=== PATIENT | male | born 1960 | race Caucasian/White ===

== ENCOUNTER 2018-12-10 18:40 | Inpatient (IN) | payer MEDICARE ==
[~2018-12-10] VITALS: Ht 175.3 cm; Wt 75.3 kg
[~2018-12-10 18:40] MED LIST: CHOL4POW3 PO; HYDR-2769 PO; LISI-334 PO; OXYC1TAB22 PO; WARF-78 PO
[2018-12-10] MEDS ORDERED: fentaNYL PF VIAL 100 MCG/2 ML VIAL IV ONE (19:15)
[2018-12-10] MEDS ORDERED: IOHEXOL 300 MG/ML 100ML VIAL. IV ONE (19:15)
[2018-12-10 19:16] LABS: BASO % 1 % (0-3); EOS # 0.4 x10^3/uL (0.0-0.7); EOS % 8 % (0-3); HEMATOCRIT 31.3 % (39.0-53.0); HEMOGLOBIN 10.6 g/dL (13.0-17.5); LYMPH # 1.8 x10^3/uL (1.0-4.8); LYMPH % 37 % (24-48); MEAN CORPUSCULAR HEMOGLOBIN 26 pg (25-35); MEAN CORPUSCULAR HGB CONC 34 g/dL (31-37); MEAN CORPUSCULAR VOLUME 77 fL (79-100); MONO # 0.5 x10^3/uL (0.0-1.1); MONO % 11 % (0-9); NEUT # 2.1 x10^3/uL (1.8-7.7); NEUT % 43 % (31-73); PLATELET COUNT 270 x10^3/uL (140-400); RED BLOOD COUNT 4.04 x10^6/uL (4.30-5.70); RED CELL DISTRIBUTION WIDTH 18.9 % (11.5-14.5); WHITE BLOOD COUNT 4.9 x10^3/uL (4.0-11.0)
--- NOTE | 2018-12-10 19:30 | RAD ---
Indication: Trauma TECHNIQUE: Single AP view of the chest COMPARISON: None FINDINGS: Median sternotomy. Heart is normal in size. Lungs are clear. No pneumothorax or pleural effusion. Visualized bony thorax is within normal limits. IMPRESSION: No acute pulmonary process. Indication:Trauma. TECHNIQUE: 3 views of the left knee COMPARISON:None FINDINGS/impression: No acute fracture or dislocation. No joint effusion. Electronically signed by: Rodrigo Carrillo DO (12/10/2018 7:27 PM) [facility]
--- NOTE | 2018-12-10 19:30 | RAD ---
Indication: Trauma TECHNIQUE: Single AP view of the chest COMPARISON: None FINDINGS: Median sternotomy. Heart is normal in size. Lungs are clear. No pneumothorax or pleural effusion. Visualized bony thorax is within normal limits. IMPRESSION: No acute pulmonary process. Indication:Trauma. TECHNIQUE: 3 views of the left knee COMPARISON:None FINDINGS/impression: No acute fracture or dislocation. No joint effusion. Electronically signed by: Rodrigo Carrillo DO (12/10/2018 7:27 PM) [facility]
[2018-12-10 19:33] LABS: PROTHROMBIN TIME PATIENT 34.3 SEC (11.7-14.0)
[2018-12-10 19:33] LABS: BILIRUBIN,URINE NEGATIVE (NEG); CLARITY,URINE CLEAR; COLOR,URINE YELLOW; NITRITE,URINE NEGATIVE (NEG); PH,URINE 5.5; PROTEIN,URINE NEGATIVE (NEG-TRACE); UROBILINOGEN,URINE 0.2 mg/dL (0.2 mg/dL)
[2018-12-10 19:34] LABS: ALBUMIN 3.5 g/dL (3.4-5.0); ALBUMIN/GLOBULIN RATIO 1.1 (1.0-1.7); CALCIUM 8.3 mg/dL (8.5-10.1); CREATININE 0.8 mg/dL (0.7-1.3); GFR 99.6; POTASSIUM 3.3 mmol/L (3.5-5.1); TOTAL BILIRUBIN 0.3 mg/dL (0.2-1.0); TOTAL PROTEIN 6.7 g/dL (6.4-8.2)
[2018-12-10 19:38] LABS: BACTERIA,URINE 0 /HPF (0-FEW); RBC,URINE 0 /HPF (0-2); SQUAMOUS EPITHELIAL CELL,UR OCC /LPF; WBC,URINE 0 /HPF (0-4)
[2018-12-10] MEDS ORDERED: IV NORMAL SALINE 1000ML BAG 1,000 ML IV ONE (19:45)
--- NOTE | 2018-12-10 20:01 | RAD ---
PQRS Compliance statement: One or more of the following individualized dose reduction techniques were utilized for this examination: 1. Automated exposure control. 2. Adjustment of the mA and/or kV according to patient size. 3. Use of iterative reconstruction technique. Indication:Trauma. TECHNIQUE: CT head without IV contrast COMPARISON:None FINDINGS: No pathologic extra-axial or intra-axial fluid collection. The ventricles and basal cisterns are within normal limits. No acute intracranial bleed. No large scalp hematoma. Orbits are within normal limits. No acute calvarial fractures. Mucous retention cyst or polyps are seen in the bilateral maxillary sinuses. Patchy opacification of the ethmoid air cells suggesting sinus disease. Bilateral mastoid air cells are clear. IMPRESSION: No acute intracranial bleed or calvarial fracture. Indication:Trauma. TECHNIQUE: CT of the cervical spine without IV contrast with multiplanar reformats. COMPARISON:None FINDINGS: Cervical spine is in normal anatomic alignment. Atlantoaxial joint interval is preserved. Loss of vertebral body height seen at T2 vertebral body with no retropulsion the spinal canal. No compression deformities in the cervical spine. Facet joints are in normal anatomic alignment. Multilevel advanced degenerative disc disease noted. Visualized noncontrast sections through the neck are within normal limits. Clear lung apices. IMPRESSION: 1. Mild loss of T2 vertebral body height suggests compression deformity or collapsed Schmorl's node, age indeterminate. Clinically correlate with focal tenderness. 2. No acute fractures in the cervical spine. 3. Advanced multilevel degenerative disc disease. Indication:Trauma. TECHNIQUE: CT chest, abdomen and pelvis with IV contrast with multiplanar reformats. COMPARISON: None FINDINGS: Heart is normal in size. No pericardial or pleural effusion. CABG changes noted. Clear lung bases. No enlarged axillary, mediastinal or hilar adenopathy. Mild diffuse atherosclerotic plaque in the thoracic aorta. No pneumothorax. Mild emphysema. No lung consolidation. No acute fractures. Mild abnormality seen of the superior endplate of the T2 vertebral body. Mild aneurysmal dilation of the ascending aorta measuring 4 cm. Liver, spleen, gallbladder, pancreas, adrenals and kidneys are within normal limits. No free pelvic fluid or ascites. No pneumoperitoneum. The prostate and seminal vesicles show no large mass. No bowel obstruction. Normal appendix. Urinary bladder is distended without radiopaque stone. No suspicious bony lesion. IMPRESSION: 1. Mild abnormality of the superior endplate of the T12 vertebral body likely collapsed Schmorl's node or old compression deformity. Clinically correlate with focal tenderness. 2. Mild aneurysmal dilation of the ascending aorta. Electronically signed by: Rodrigo Carrillo DO (12/10/2018 7:58 PM) [facility]
[2018-12-10] MEDS ORDERED: DIPHTH,PERTUSS(ACELL),TET TOX 0.5 ML DISP.SYRIN. VAX IM ONE (20:15)
--- NOTE | 2018-12-10 20:53 | HP ---
ADMIT DATE: 12/10/2018 CHIEF COMPLAINT: Fall. HISTORY OF PRESENT ILLNESS: The patient is a pleasant middle-aged male who fell. He is drunk. He drinks a lot of beer. He also has a sodium level of 119. He suffered a laceration to his scalp. I discussed the case with ER physician. We are going to admit the patient and consult Nephrology regarding his electrolytes. PAST MEDICAL HISTORY: Alcoholism, chronic anticoagulation, coronary artery disease, hypertension, hyperlipidemia, chronic pain, arthritis. ALLERGIES: None. FAMILY HISTORY: Coronary artery disease. SOCIAL HISTORY: He drinks. No smoking or drugs. MEDICATIONS: Reviewed, please refer to the MRAD. REVIEW OF SYSTEMS: Unable to obtain. The patient is too drunk. PHYSICAL EXAMINATION: GENERAL: No history of weight change, weakness or fevers. SKIN: No bruising, hair changes or rashes. HEENT: He has a C-collar on and has some lacerations and bruising to the face and scalp. HEART: No history of palpitations, chest pain or shortness of breath on exertion. LUNGS: Denies cough, hemoptysis, wheezing or shortness of breath. GASTROINTESTINAL: Denies changes in appetite, nausea, vomiting, diarrhea or constipation. GENITOURINARY: No history of frequency, urgency, hesitancy or nocturia. NEUROLOGIC: Denies history of numbness, tingling, tremor or weakness. PSYCHIATRIC: No history of panic, anxiety or depression. ENDOCRINE: No history of heat or cold intolerance, polyuria or polydipsia. EXTREMITIES: He has a lot of bruising on his arms consistent with his chronic anticoagulation with Coumadin. LABORATORY DATA: White count is 4.9, hemoglobin 10.6, platelets 270. Electrolytes: Sodium 119, potassium 3.3, chloride 84, bicarbonate 30, BUN 8, creatinine 0.8, glucose 85. Chest x-ray, no acute fractures or acute disease. CT of the abdomen, no acute issues. There is an old compression fracture noted at T2. Cervical spine CT, no acute bleeding or fractures. There is some mild abnormality of the superior endplate of T12, likely collapsed Schmorl's node or old compression deformity and mild aneurysmal dilatation of the ascending aorta. ASSESSMENT AND PLAN: Fall, alcohol abuse and hyponatremia in a middle-aged male who has chronic anticoagulation and coronary artery disease. The patient is being admitted. We will consult Nephrology, wound care, home meds. If he shows signs of withdrawal, we will do alcohol withdrawal protocol, DVT prophylaxis. Full code. PAT SANABRIA DO DR: KIARA/juanita JOB#: [id number] / [id number]
[2018-12-10] MEDS ORDERED: OXYC1TAB19 PO (21:43)
[2018-12-10] MEDS ORDERED: LORA1TAB PO (21:46)
[2018-12-10] MEDS: IV NORMAL SALINE 1000ML BAG 1,000 ML IV SCH (21:54)
[2018-12-10] MEDS: MORPHINE SULFATE 2 MG/ML VIAL. IV PRN (21:54)
[2018-12-10 22:05] LABS: CREATININE ISTAT 1.2 mg/dL (0.5-1.4); HEMOGLOBIN ISTAT 11.6 g/dL (14-18); ION CA ISTAT 1.01 mmol/L (1.13-1.32); POTASSIUM ISTAT 3.2 mmol/L (3.5-5.0)
--- NOTE | 2018-12-10 22:21 | PHYS DOC ---
Past Medical History Past Medical History: Hypertension Past Surgical History: Other Additional Past Surgical Histo: AORTIC VALVE Alcohol Use: Heavy Drug Use: None Adult General Chief Complaint Chief Complaint: MECHANICAL FALL HPI HPI Patient is a 58 year old male presented to the emergency room with mechanical fall down 5 steps he was intoxicated hit his head complains of neck pain some upper back pain chest pain he says he has pain all over he drank 9 beers today he drinks regularly. Remainder of history limited by patient's intoxication. There was loss of consciousness witnessedAccording to medic report. Patient does take Coumadin for a valve disorder Review of Systems Review of Systems Limited by intoxication Current Medications Current Medications Current Medications Medications (Trade) Dose Ordered Sig/Siddharth Start Time Stop Time Status Last Admin Dose Admin Fentanyl Citrate (Fentanyl 2ml Vial) 50 mcg 1X ONCE 12/10/18 19:15 12/10/18 19:16 DC 12/10/18 20:03 50 MCG Iohexol (Omnipaque 300 Mg/ml) 75 ml 1X ONCE 12/10/18 19:15 12/10/18 19:16 DC 12/10/18 19:43 75 ML Sodium Chloride 1,000 ml @ 1,000 mls/hr 1X ONCE 12/10/18 19:45 12/10/18 20:44 DC 12/10/18 19:45 1,000 MLS/HR Allergies Allergies Allergies Coded Allergies Type Severity Reaction Last Updated Verified No Known Drug Allergies 10/05/17 No Physical Exam Physical Exam Constitutional: Well developed, INTOXICATED, IN CCOCLAR HENT: Contusion to the forehead no suturable laceration noted Eyes: PERRLA, EOMI, conjunctiva normal, no discharge. [] Neck: There is midline tenderness at 3 C4 as well as paraspinous tenderness in that location really no focal thoracic spine tenderness noted on my evaluation no lumbar spine tenderness. Cardiovascular:Heart rate regular rhythm, no murmur [] Lungs & Thorax: Bilateral breath sounds clear to auscultation []chest wall abrasion noted on the right with a small ecchymosis as well no step-off Abdomen: Bowel sounds normal, soft, no tenderness, no masses, no pulsatile masses. [] Mild ecchymosis noted Back: No tenderness, no CVA tenderness. [] Extremities: ABRASION AND NONSUTRUABLE PUNCTATE LAC TO THE LEFT KNEE, NO FB SEEN. ROM INTACT. Neurologic: Alert and oriented X 3, normal motor function, normal sensory function, no focal deficits noted. []Intoxicated but otherwise neurologically intact Psychologic: Affect normal, judgement normal, mood normal. [] SKIN: SKIN TEAR NOTED B/L HANDS NO BONY TTP NOTED THERE Current Patient Data Vital Signs Vital Signs Date Time Temp Pulse Resp B/P (MAP) Pulse Ox O2 Delivery O2 Flow Rate FiO2 12/10/18 19:45 70 16 99 12/10/18 18:52 97.7 120/71 (87) Room Air 97.7 Lab Values Laboratory Tests Test 12/10/18 19:05 12/10/18 19:11 12/10/18 19:27 White Blood Count 4.9 x10^3/uL (4.0-11.0) Red Blood Count 4.04 x10^6/uL (4.30-5.70) L Hemoglobin 10.6 g/dL (13.0-17.5) L Hematocrit 31.3 % (39.0-53.0) L Mean Corpuscular Volume 77 fL (79-100) L Mean Corpuscular Hemoglobin 26 pg (25-35) Mean Corpuscular Hemoglobin Concent 34 g/dL (31-37) Red Cell Distribution Width 18.9 % (11.5-14.5) H Platelet Count 270 x10^3/uL (140-400) Neutrophils (%) (Auto) 43 % (31-73) Lymphocytes (%) (Auto) 37 % (24-48) Monocytes (%) (Auto) 11 % (0-9) H Eosinophils (%) (Auto) 8 % (0-3) H Basophils (%) (Auto) 1 % (0-3) Neutrophils # (Auto) 2.1 x10^3/uL (1.8-7.7) Lymphocytes # (Auto) 1.8 x10^3/uL (1.0-4.8) Monocytes # (Auto) 0.5 x10^3/uL (0.0-1.1) Eosinophils # (Auto) 0.4 x10^3/uL (0.0-0.7) Basophils # (Auto) 0.0 x10^3/uL (0.0-0.2) Prothrombin Time 34.3 SEC (11.7-14.0) H Prothrombin Time INR 3.4 (0.8-1.1) H Sodium Level 119 mmol/L (136-145) *L Potassium Level 3.3 mmol/L (3.5-5.1) L Chloride Level 84 mmol/L (98-107) L Carbon Dioxide Level 30 mmol/L (21-32) Anion Gap 5 (6-14) L 18 mmol/L (6-14) H Blood Urea Nitrogen 8 mg/dL (8-26) Creatinine 0.8 mg/dL (0.7-1.3) Estimated GFR (Cockcroft-Gault) 99.6 BUN/Creatinine Ratio 10 (6-20) Glucose Level 85 mg/dL (70-99) 86 mg/dL (70-99) Calcium Level 8.3 mg/dL (8.5-10.1) L Total Bilirubin 0.3 mg/dL (0.2-1.0) Aspartate Amino Transferase (AST) 27 U/L (15-37) Alanine Aminotransferase (ALT) 23 U/L (16-63) Alkaline Phosphatase 63 U/L (46-116) Troponin I Quantitative < 0.017 ng/mL (0.000-0.055) Total Protein 6.7 g/dL (6.4-8.2) Albumin 3.5 g/dL (3.4-5.0) Albumin/Globulin Ratio 1.1 (1.0-1.7) Ethyl Alcohol Level 231 mg/dL (0-10) H POC Hemoglobin 11.6 g/dL (14-18) L POC Hematocrit 34 % (37-52) L POC Sodium 117 mmol/L (135-145) L POC Potassium 3.2 mmol/L (3.5-5.0) L POC Chloride 79 mmol/L (98-110) L POC Total CO2 25 mmol/L (23-32) POC Blood Urea Nitrogen 7 mg/dL (8-26) L POC Creatinine 1.2 mg/dL (0.5-1.4) POC Ionized Calcium (Smiley) 1.01 mmol/L (1.13-1.32) L Urine Collection Type Unknown Urine Color Yellow Urine Clarity Clear Urine pH 5.5 Urine Specific Loyal <=1.005 Urine Protein Negative mg/dL (NEG-TRACE) Urine Glucose (UA) Negative mg/dL (NEG) Urine Ketones (Stick) Negative mg/dL (NEG) Urine Blood Negative (NEG) Urine Nitrite Negative (NEG) Urine Bilirubin Negative (NEG) Urine Urobilinogen Dipstick 0.2 mg/dL (0.2 mg/dL) Urine Leukocyte Esterase Negative (NEG) Urine RBC 0 /HPF (0-2) Urine WBC 0 /HPF (0-4) Urine Squamous Epithelial Cells Occ /LPF Urine Bacteria 0 /HPF (0-FEW) Laboratory Tests 12/10/18 19:05 Laboratory Tests 12/10/18 19:05 12/10/18 19:11 EKG EKG []EKG did show a normal sinus rhythm rate of 71 no acute ischemic changes noted interpreted by me the time of encounter Radiology/Procedures Radiology/Procedures FINDINGS: Median sternotomy. Heart is normal in size. Lungs are clear. No pneumothorax or pleural effusion. Visualized bony thorax is within normal limits. IMPRESSION: No acute pulmonary process. Indication:Trauma. TECHNIQUE: 3 views of the left knee COMPARISON:None FINDINGS/impression: No acute fracture or dislocation. No joint effusion. Electronically signed by: Rodrigo Carrillo DO (12/10/2018 7:27 PM) [facility] DICTATED and SIGNED BY: RODRIGO CARRILLO DO DATE: 12/10/181926[] Impressions: IMPRESSION: No acute intracranial bleed or calvarial fracture. Indication:Trauma. TECHNIQUE: CT of the cervical spine without IV contrast with multiplanar reformats. COMPARISON:None FINDINGS: Cervical spine is in normal anatomic alignment. Atlantoaxial joint interval is preserved. Loss of vertebral body height seen at T2 vertebral body with no retropulsion the spinal canal. No compression deformities in the cervical spine. Facet joints are in normal anatomic alignment. Multilevel advanced degenerative disc disease noted. Visualized noncontrast sections through the neck are within normal limits. Clear lung apices. IMPRESSION: 1. Mild loss of T2 vertebral body height suggests compression deformity or collapsed Schmorl's node, age indeterminate. Clinically correlate with focal tenderness. 2. No acute fractures in the cervical spine. 3. Advanced multilevel degenerative disc disease. Indication:Trauma. TECHNIQUE: CT chest, abdomen and pelvis with IV contrast with multiplanar reformats. COMPARISON: None FINDINGS: Heart is normal in size. No pericardial or pleural effusion. CABG changes noted. Clear lung bases. No enlarged axillary, mediastinal or hilar adenopathy. Mild diffuse atherosclerotic plaque in the thoracic aorta. No pneumothorax. Mild emphysema. No lung consolidation. No acute fractures. Mild abnormality seen of the superior endplate of the T2 vertebral body. Mild aneurysmal dilation of the ascending aorta measuring 4 cm. Liver, spleen, gallbladder, pancreas, adrenals and kidneys are within normal limits. No free pelvic fluid or ascites. No pneumoperitoneum. The prostate and seminal vesicles show no large mass. No bowel obstruction. Normal appendix. Urinary bladder is distended without radiopaque stone. No suspicious bony lesion. IMPRESSION: 1. Mild abnormality of the superior endplate of the T12 vertebral body likely collapsed Schmorl's node or old compression deformity. Clinically correlate with focal tenderness. 2. Mild aneurysmal dilation of the ascending aorta. Electronically signed by: Rodrigo Carrillo DO (12/10/2018 7:58 PM) [facility] DICTATED and SIGNED BY: RODRIGO CARRILLO DO DATE: 12/10/181957 Course & Med Decision Making Course & Med Decision Making Critical care time was 35 minutes exclusive of procedures.for management of severe hyponatremia In summary 58-year-old male alcoholic intoxication fell trauma alert activated in the emergency room due to being on Coumadin. Head CT negative Coumadin level was mildly supratherapeutic I did not reverse it due to the known valve disorder and the negative head CT at this time. C-spine was cleared clinically after the CT C-spine. Noted the T2 finding really no focal tenderness there that is age indeterminant. Noted the hyponatremia likely related to alcohol abuse given a liter of normal saline we'll admit to Dr. Solis I spoke with him he saw the patient in the emergency room no signs of alcohol withdrawal in the emergency room the alcohol level was actually quite elevated. Remainder of the chest abdomen pelvis traumatic CT workup was negative acute. Pertinent Labs and Imaging studies reviewed. (See chart for details) [] Dragon Disclaimer Dragon Disclaimer This electronic medical record was generated, in whole or in part, using a voice recognition dictation system. Departure Departure Impression: Primary Impression: Hyponatremia Additional Impressions: Closed head injury Alcohol abuse Disposition: ADMITTED INPATIENT Admitting Physician: HIMS Condition: STABLE Referrals: CHRISTINE EMANUEL (PCP) Problem Qualifiers DYLAN CARUSO MD Dec 10, 2018 22:21
[2018-12-10 22:22] VITALS: BP 122/75
[2018-12-11] MEDS: MORPHINE SULFATE 2 MG/ML VIAL. IV PRN ×6 (00:17→12:03)
[2018-12-11 03:24] VITALS: BP 127/71
[2018-12-11] MEDS ORDERED: LORazepam 1 MG TABLET PO PRN (05:30)
[2018-12-11] MEDS ORDERED: chlordiazePOXIDE HCL 25 MG CAPSULE PO PRN (05:30)
[2018-12-11] MEDS ORDERED: cloNIDine HCL 0.1 MG TABLET PO PRN (05:30)
[2018-12-11] MEDS: ONDANSETRON PF 4 MG/2 ML VIAL. IV PRN ×3 (05:45→20:37)
[2018-12-11] MEDS: IV NORMAL SALINE 1000ML BAG 1,000 ML IV SCH ×3 (06:07→13:00)
[2018-12-11 07:25] LABS: ALBUMIN 3.3 g/dL (3.4-5.0); DIRECT BILIRUBIN 0.2 mg/dL (0.0-0.2); TOTAL BILIRUBIN 0.4 mg/dL (0.2-1.0); TOTAL PROTEIN 6.4 g/dL (6.4-8.2)
[2018-12-11 07:36] VITALS: BP 144/83
--- NOTE | 2018-12-11 07:41 | EKG ---
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
[2018-12-11] MEDS: FOLIC ACID 1 MG TABLET. PO SCH (08:02)
[2018-12-11] MEDS: MULTIVITAMIN with MINERAL TABLET. PO SCH (08:02)
--- NOTE | 2018-12-11 09:23 | PDOC ---
PROGRESS NOTES History of Present Illness History of Present Illness ASSESSMENT AND PLAN: Fall, alcohol abuse , severe hyponatremia chronic anticoagulation and coronary artery disease. admitted. consult Nephrology, wound care, home meds. alcohol withdrawal protocol, prn DVT prophylaxis. Full code. 37 min pt exam, chart review, > 50% of time spent with exam, chart review, pt care coordination Vitals Vitals Vital Signs Date Time Temp Pulse Resp B/P (MAP) Pulse Ox O2 Delivery O2 Flow Rate FiO2 12/11/18 08:33 20 97 Room Air 12/11/18 07:36 98.4 91 144/83 (103) 98.4 Physical Exam Physical Exam HEART: No history of palpitations, chest pain or shortness of breath on exertion. LUNGS: Denies cough, hemoptysis, wheezing or shortness of breath. GASTROINTESTINAL: Denies changes in appetite, nausea, vomiting, diarrhea or constipation. GENITOURINARY: No history of frequency, urgency, hesitancy or nocturia. NEUROLOGIC: Denies history of numbness, tingling, tremor or weakness. PSYCHIATRIC: No history of panic, anxiety or depression. ENDOCRINE: No history of heat or cold intolerance, polyuria or polydipsia. EXTREMITIES: He has a lot of bruising on his arms consistent with his chronic anticoagulation with Coumadin. General: Cooperative, No acute distress Lungs: Wheezing Abdomen: Soft Extremities: No clubbing, No cyanosis, No edema Labs LABS Laboratory Tests Test 12/10/18 19:05 12/10/18 19:11 12/10/18 19:27 12/11/18 06:20 White Blood Count 4.9 x10^3/uL (4.0-11.0) Red Blood Count 4.04 x10^6/uL (4.30-5.70) Hemoglobin 10.6 g/dL (13.0-17.5) Hematocrit 31.3 % (39.0-53.0) Mean Corpuscular Volume 77 fL (79-100) Mean Corpuscular Hemoglobin 26 pg (25-35) Mean Corpuscular Hemoglobin Concent 34 g/dL (31-37) Red Cell Distribution Width 18.9 % (11.5-14.5) Platelet Count 270 x10^3/uL (140-400) Neutrophils (%) (Auto) 43 % (31-73) Lymphocytes (%) (Auto) 37 % (24-48) Monocytes (%) (Auto) 11 % (0-9) Eosinophils (%) (Auto) 8 % (0-3) Basophils (%) (Auto) 1 % (0-3) Neutrophils # (Auto) 2.1 x10^3/uL (1.8-7.7) Lymphocytes # (Auto) 1.8 x10^3/uL (1.0-4.8) Monocytes # (Auto) 0.5 x10^3/uL (0.0-1.1) Eosinophils # (Auto) 0.4 x10^3/uL (0.0-0.7) Basophils # (Auto) 0.0 x10^3/uL (0.0-0.2) Prothrombin Time 34.3 SEC (11.7-14.0) Prothromb Time International Ratio 3.4 (0.8-1.1) Sodium Level 119 mmol/L (136-145) Potassium Level 3.3 mmol/L (3.5-5.1) Chloride Level 84 mmol/L (98-107) Carbon Dioxide Level 30 mmol/L (21-32) Anion Gap 5 (6-14) 18 mmol/L (6-14) Blood Urea Nitrogen 8 mg/dL (8-26) Creatinine 0.8 mg/dL (0.7-1.3) Estimated GFR (Cockcroft-Gault) 99.6 BUN/Creatinine Ratio 10 (6-20) Glucose Level 85 mg/dL (70-99) 86 mg/dL (70-99) Calcium Level 8.3 mg/dL (8.5-10.1) Total Bilirubin 0.3 mg/dL (0.2-1.0) 0.4 mg/dL (0.2-1.0) Aspartate Amino Transf (AST/SGOT) 27 U/L (15-37) 25 U/L (15-37) Alanine Aminotransferase (ALT/SGPT) 23 U/L (16-63) 23 U/L (16-63) Alkaline Phosphatase 63 U/L (46-116) 55 U/L (46-116) Troponin I Quantitative < 0.017 ng/mL (0.000-0.055) Total Protein 6.7 g/dL (6.4-8.2) 6.4 g/dL (6.4-8.2) Albumin 3.5 g/dL (3.4-5.0) 3.3 g/dL (3.4-5.0) Albumin/Globulin Ratio 1.1 (1.0-1.7) Ethyl Alcohol Level 231 mg/dL (0-10) Bedside Hemoglobin 11.6 g/dL (14-18) Bedside Hematocrit 34 % (37-52) Bedside Sodium 117 mmol/L (135-145) Bedside Potassium 3.2 mmol/L (3.5-5.0) Bedside Chloride 79 mmol/L (98-110) Bedside Total CO2 25 mmol/L (23-32) Bedside Blood Urea Nitrogen 7 mg/dL (8-26) Bedside Creatinine 1.2 mg/dL (0.5-1.4) Bedside Ionized Calcium (Smiley) 1.01 mmol/L (1.13-1.32) Urine Collection Type Unknown Urine Color Yellow Urine Clarity Clear Urine pH 5.5 Urine Specific [place] <=1.005 Urine Protein Negative mg/dL (NEG-TRACE) Urine Glucose (UA) Negative mg/dL (NEG) Urine Ketones (Stick) Negative mg/dL (NEG) Urine Blood Negative (NEG) Urine Nitrite Negative (NEG) Urine Bilirubin Negative (NEG) Urine Urobilinogen Dipstick 0.2 mg/dL (0.2 mg/dL) Urine Leukocyte Esterase Negative (NEG) Urine RBC 0 /HPF (0-2) Urine WBC 0 /HPF (0-4) Urine Squamous Epithelial Cells Occ /LPF Urine Bacteria 0 /HPF (0-FEW) Direct Bilirubin 0.2 mg/dL (0.0-0.2) Assessment and Plan Assessmemt and Plan Problems Medical Problems: (1) Alcohol abuse Status: Acute (2) Closed head injury Status: Acute Comment Review of Relevant I have reviewed the following items robert (where applicable) has been applied. Labs Laboratory Tests Test 12/10/18 19:05 12/10/18 19:11 12/10/18 19:27 12/11/18 06:20 White Blood Count 4.9 x10^3/uL (4.0-11.0) Red Blood Count 4.04 x10^6/uL (4.30-5.70) Hemoglobin 10.6 g/dL (13.0-17.5) Hematocrit 31.3 % (39.0-53.0) Mean Corpuscular Volume 77 fL (79-100) Mean Corpuscular Hemoglobin 26 pg (25-35) Mean Corpuscular Hemoglobin Concent 34 g/dL (31-37) Red Cell Distribution Width 18.9 % (11.5-14.5) Platelet Count 270 x10^3/uL (140-400) Neutrophils (%) (Auto) 43 % (31-73) Lymphocytes (%) (Auto) 37 % (24-48) Monocytes (%) (Auto) 11 % (0-9) Eosinophils (%) (Auto) 8 % (0-3) Basophils (%) (Auto) 1 % (0-3) Neutrophils # (Auto) 2.1 x10^3/uL (1.8-7.7) Lymphocytes # (Auto) 1.8 x10^3/uL (1.0-4.8) Monocytes # (Auto) 0.5 x10^3/uL (0.0-1.1) Eosinophils # (Auto) 0.4 x10^3/uL (0.0-0.7) Basophils # (Auto) 0.0 x10^3/uL (0.0-0.2) Prothrombin Time 34.3 SEC (11.7-14.0) Prothromb Time International Ratio 3.4 (0.8-1.1) Sodium Level 119 mmol/L (136-145) Potassium Level 3.3 mmol/L (3.5-5.1) Chloride Level 84 mmol/L (98-107) Carbon Dioxide Level 30 mmol/L (21-32) Anion Gap 5 (6-14) 18 mmol/L (6-14) Blood Urea Nitrogen 8 mg/dL (8-26) Creatinine 0.8 mg/dL (0.7-1.3) Estimated GFR (Cockcroft-Gault) 99.6 BUN/Creatinine Ratio 10 (6-20) Glucose Level 85 mg/dL (70-99) 86 mg/dL (70-99) Calcium Level 8.3 mg/dL (8.5-10.1) Total Bilirubin 0.3 mg/dL (0.2-1.0) 0.4 mg/dL (0.2-1.0) Aspartate Amino Transf (AST/SGOT) 27 U/L (15-37) 25 U/L (15-37) Alanine Aminotransferase (ALT/SGPT) 23 U/L (16-63) 23 U/L (16-63) Alkaline Phosphatase 63 U/L (46-116) 55 U/L (46-116) Troponin I Quantitative < 0.017 ng/mL (0.000-0.055) Total Protein 6.7 g/dL (6.4-8.2) 6.4 g/dL (6.4-8.2) Albumin 3.5 g/dL (3.4-5.0) 3.3 g/dL (3.4-5.0) Albumin/Globulin Ratio 1.1 (1.0-1.7) Ethyl Alcohol Level 231 mg/dL (0-10) Bedside Hemoglobin 11.6 g/dL (14-18) Bedside Hematocrit 34 % (37-52) Bedside Sodium 117 mmol/L (135-145) Bedside Potassium 3.2 mmol/L (3.5-5.0) Bedside Chloride 79 mmol/L (98-110) Bedside Total CO2 25 mmol/L (23-32) Bedside Blood Urea Nitrogen 7 mg/dL (8-26) Bedside Creatinine 1.2 mg/dL (0.5-1.4) Bedside Ionized Calcium (Smiley) 1.01 mmol/L (1.13-1.32) Urine Collection Type Unknown Urine Color Yellow Urine Clarity Clear Urine pH 5.5 Urine Specific [place] <=1.005 Urine Protein Negative mg/dL (NEG-TRACE) Urine Glucose (UA) Negative mg/dL (NEG) Urine Ketones (Stick) Negative mg/dL (NEG) Urine Blood Negative (NEG) Urine Nitrite Negative (NEG) Urine Bilirubin Negative (NEG) Urine Urobilinogen Dipstick 0.2 mg/dL (0.2 mg/dL) Urine Leukocyte Esterase Negative (NEG) Urine RBC 0 /HPF (0-2) Urine WBC 0 /HPF (0-4) Urine Squamous Epithelial Cells Occ /LPF Urine Bacteria 0 /HPF (0-FEW) Direct Bilirubin 0.2 mg/dL (0.0-0.2) Laboratory Tests Test 12/10/18 19:05 12/10/18 19:11 12/10/18 19:27 12/11/18 06:20 White Blood Count 4.9 x10^3/uL (4.0-11.0) Red Blood Count 4.04 x10^6/uL (4.30-5.70) Hemoglobin 10.6 g/dL (13.0-17.5) Hematocrit 31.3 % (39.0-53.0) Mean Corpuscular Volume 77 fL (79-100) Mean Corpuscular Hemoglobin 26 pg (25-35) Mean Corpuscular Hemoglobin Concent 34 g/dL (31-37) Red Cell Distribution Width 18.9 % (11.5-14.5) Platelet Count 270 x10^3/uL (140-400) Neutrophils (%) (Auto) 43 % (31-73) Lymphocytes (%) (Auto) 37 % (24-48) Monocytes (%) (Auto) 11 % (0-9) Eosinophils (%) (Auto) 8 % (0-3) Basophils (%) (Auto) 1 % (0-3) Neutrophils # (Auto) 2.1 x10^3/uL (1.8-7.7) Lymphocytes # (Auto) 1.8 x10^3/uL (1.0-4.8) Monocytes # (Auto) 0.5 x10^3/uL (0.0-1.1) Eosinophils # (Auto) 0.4 x10^3/uL (0.0-0.7) Basophils # (Auto) 0.0 x10^3/uL (0.0-0.2) Prothrombin Time 34.3 SEC (11.7-14.0) Prothromb Time International Ratio 3.4 (0.8-1.1) Sodium Level 119 mmol/L (136-145) Potassium Level 3.3 mmol/L (3.5-5.1) Chloride Level 84 mmol/L (98-107) Carbon Dioxide Level 30 mmol/L (21-32) Anion Gap 5 (6-14) 18 mmol/L (6-14) Blood Urea Nitrogen 8 mg/dL (8-26) Creatinine 0.8 mg/dL (0.7-1.3) Estimated GFR (Cockcroft-Gault) 99.6 BUN/Creatinine Ratio 10 (6-20) Glucose Level 85 mg/dL (70-99) 86 mg/dL (70-99) Calcium Level 8.3 mg/dL (8.5-10.1) Total Bilirubin 0.3 mg/dL (0.2-1.0) 0.4 mg/dL (0.2-1.0) Aspartate Amino Transf (AST/SGOT) 27 U/L (15-37) 25 U/L (15-37) Alanine Aminotransferase (ALT/SGPT) 23 U/L (16-63) 23 U/L (16-63) Alkaline Phosphatase 63 U/L (46-116) 55 U/L (46-116) Troponin I Quantitative < 0.017 ng/mL (0.000-0.055) Total Protein 6.7 g/dL (6.4-8.2) 6.4 g/dL (6.4-8.2) Albumin 3.5 g/dL (3.4-5.0) 3.3 g/dL (3.4-5.0) Albumin/Globulin Ratio 1.1 (1.0-1.7) Ethyl Alcohol Level 231 mg/dL (0-10) Bedside Hemoglobin 11.6 g/dL (14-18) Bedside Hematocrit 34 % (37-52) Bedside Sodium 117 mmol/L (135-145) Bedside Potassium 3.2 mmol/L (3.5-5.0) Bedside Chloride 79 mmol/L (98-110) Bedside Total CO2 25 mmol/L (23-32) Bedside Blood Urea Nitrogen 7 mg/dL (8-26) Bedside Creatinine 1.2 mg/dL (0.5-1.4) Bedside Ionized Calcium (Smiley) 1.01 mmol/L (1.13-1.32) Urine Collection Type Unknown Urine Color Yellow Urine Clarity Clear Urine pH 5.5 Urine Specific [place] <=1.005 Urine Protein Negative mg/dL (NEG-TRACE) Urine Glucose (UA) Negative mg/dL (NEG) Urine Ketones (Stick) Negative mg/dL (NEG) Urine Blood Negative (NEG) Urine Nitrite Negative (NEG) Urine Bilirubin Negative (NEG) Urine Urobilinogen Dipstick 0.2 mg/dL (0.2 mg/dL) Urine Leukocyte Esterase Negative (NEG) Urine RBC 0 /HPF (0-2) Urine WBC 0 /HPF (0-4) Urine Squamous Epithelial Cells Occ /LPF Urine Bacteria 0 /HPF (0-FEW) Direct Bilirubin 0.2 mg/dL (0.0-0.2) Medications Current Medications Fentanyl Citrate (Fentanyl 2ml Vial) 50 mcg 1X ONCE IV Last administered on 12/10/18 20:03; Start 12/10/18 at 19:15; Stop 12/10/18 at 19:16; Status DC Iohexol (Omnipaque 300 Mg/ml) 75 ml 1X ONCE IV Last administered on 12/10/18at 19:43; Start 12/10/18 at 19:15; Stop 12/10/18 at 19:16; Status DC Sodium Chloride 1,000 ml @ 1,000 mls/hr 1X ONCE IV Last administered on 12/10/18at 19:45; Start 12/10/18 at 19:45; Stop 12/10/18 at 20:44; Status DC Morphine Sulfate (Morphine Sulfate) 2 mg PRN Q2HR PRN IV PAIN Last administered on 12/11/18 08:03; Start 12/10/18 at 20:15; Stop 12/11/18 at 20:14 Sodium Chloride 1,000 ml @ 100 mls/hr Q10H IV Last administered on 12/11/18 08:10; Start 12/10/18 at 20:07; Stop 12/11/18 at 20:06 Diphtheria/ Tetanus/Acell Pertussis (Boostrix) 0.5 ml ONCE ONCE VAX IM Last administered on 12/10/18at 21:07; Start 12/10/18 at 20:15; Stop 12/10/18 at 20:16; Status DC Ondansetron HCl (Zofran) 4 mg PRN Q6HRS PRN IV NAUSEA/VOMITING 1ST CHOICE Last administered on 12/11/18at 05:45; Start 12/11/18 at 05:30 Multivitamins (Thera M Plus) 1 tab DAILY PO Last administered on 12/11/18 08:02; Start 12/11/18 at 09:00 Folic Acid (Folic Acid) 1 mg DAILY PO Last administered on 12/11/18at 08:02; Start 12/11/18 at 09:00 Chlordiazepoxide (Librium) 50 mg PRN Q1HR PRN PO For CIWA 8-14; Start 12/11/18 at 05:30 Chlordiazepoxide (Librium) 100 mg PRN Q1HR PRN PO For CIWA 15 or greater; Start 12/11/18 at 05:30 Lorazepam (Ativan) 4 mg PRN Q1HR PRN PO For CIWA 8-14; Start 12/11/18 at 05:30 Lorazepam (Ativan) 8 mg PRN Q1HR PRN PO For CIWA 15 or greater; Start 12/11/18 at 05:30 Lorazepam (Ativan Inj) 2 mg PRN Q1HR PRN IV For CIWA 8-14 Last administered on 12/11/18at 08:02; Start 12/11/18 at 05:30 Lorazepam (Ativan Inj) 4 mg PRN Q1HR PRN IV For CIWA 15 or greater; Start 12/11/18 at 05:30 Haloperidol Lactate (Haldol Inj) 5 mg PRN Q4HRS PRN IVP Hallucinatns,Confusn,Delirium; Start 12/11/18 at 05:30 Diphenhydramine HCl (Benadryl) 25 mg PRN Q15MIN PRN IVP EPS symptoms 2'Haldol admin; Start 12/11/18 at 05:30 Clonidine HCl (Catapres) 0.1 mg PRN Q1HR PRN PO SBP > 180 or DBP > 100, MRX3; Start 12/11/18 at 05:30 Active Scripts Active Reported Lorazepam 1 Mg Tablet 1 Tab PO BID Percocet 7.5-325 Mg Tablet (Oxycodone/Acetaminophen) 1 Each Tablet 1 Tab PO PRN Q6HRS PRN Coumadin (Warfarin Sodium) 5 Mg Tablet 1 Tab PO DAILY Lisinopril 20 Mg Tablet 1 Tab PO DAILY Vitals/I & O Vital Sign - Last 24 Hours 12/10/18 12/10/18 12/10/18 12/10/18 18:52 19:45 20:03 20:45 Temp 97.7 97.7 Pulse 68 70 86 Resp 16 16 16 16 B/P (MAP) 120/71 (87) Pulse Ox 98 99 97 98 O2 Delivery Room Air Room Air 12/10/18 12/10/18 12/10/18 12/11/18 21:54 22:10 22:22 00:17 Temp 97.9 97.9 Pulse 87 Resp 18 20 18 B/P (MAP) 122/75 (91) Pulse Ox 96 O2 Delivery Room Air Room Air Room Air Room Air 12/11/18 12/11/18 12/11/18 12/11/18 03:24 03:49 05:46 07:36 Temp 98.3 98.4 98.3 98.4 Pulse 80 91 Resp 20 18 18 20 B/P (MAP) 127/71 (89) 144/83 (103) Pulse Ox 96 97 O2 Delivery Room Air Room Air Room Air Room Air 12/11/18 12/11/18 12/11/18 08:00 08:03 08:33 Resp 20 20 Pulse Ox 97 97 O2 Delivery Room Air Room Air Room Air Intake and Output 12/10/18 12/10/18 12/11/18 15:00 23:00 07:00 Intake Total 800 ml Balance 800 ml MER DAVIES MD Dec 11, 2018 09:23
[2018-12-11 11:24] VITALS: BP 111/68
--- NOTE | 2018-12-11 12:19 | PDOC2 ---
CONSULT Date of Consult Date of Consult DATE: 12/11/18 TIME: 12:15 Reason for Consult Reason for Consult: LOW NA Referring Physician Referring Physician: ELLY Identification/Chief Complaint Chief Complaint FALLS History of Present Illness Reason for Visit: THIS IS A 58 YR OLD WITH FALLS AND DIZZINESS. APPARENTLY DRINKS ETOH HEAVILY. NA OF 119 AND K OF 3.2 ON ADMIT. ON LISINOPRIL BUT NO DIURETICS. NO LIVER ISSUES. NO OTHER COMPLAINTS Past Medical History Cardiovascular: AFIB, HTN, Other Pulmonary: COPD CENTRAL NERVOUS SYSTEM: Periperal neuropathy, Seizure GI: GERD Psych: Anxiety, Addictions, Depression Rheumatologic: Other Renal/: Benign prostatic enlarg. Past Surgical History Past Surgical History: No pertinent history Family History Family History: Hypertension Social History ALCOHOL: heavy Drugs: Marijuana Current Problem List Problem List Problems Medical Problems: (1) Alcohol abuse Status: Acute (2) Closed head injury Status: Acute Current Medications Current Medications Current Medications Fentanyl Citrate (Fentanyl 2ml Vial) 50 mcg 1X ONCE IV Last administered on 12/10/18at 20:03; Start 12/10/18 at 19:15; Stop 12/10/18 at 19:16; Status DC Iohexol (Omnipaque 300 Mg/ml) 75 ml 1X ONCE IV Last administered on 12/10/18at 19:43; Start 12/10/18 at 19:15; Stop 12/10/18 at 19:16; Status DC Sodium Chloride 1,000 ml @ 1,000 mls/hr 1X ONCE IV Last administered on 12/10/18at 19:45; Start 12/10/18 at 19:45; Stop 12/10/18 at 20:44; Status DC Morphine Sulfate (Morphine Sulfate) 2 mg PRN Q2HR PRN IV PAIN Last administered on 12/11/18at 12:03; Start 12/10/18 at 20:15; Stop 12/11/18 at 20:14 Sodium Chloride 1,000 ml @ 100 mls/hr Q10H IV Last administered on 12/11/18at 08:10; Start 12/10/18 at 20:07; Stop 12/11/18 at 20:06 Diphtheria/ Tetanus/Acell Pertussis (Boostrix) 0.5 ml ONCE ONCE VAX IM Last administered on 12/10/18at 21:07; Start 12/10/18 at 20:15; Stop 12/10/18 at 20:16; Status DC Ondansetron HCl (Zofran) 4 mg PRN Q6HRS PRN IV NAUSEA/VOMITING 1ST CHOICE Last administered on 12/11/18at 12:02; Start 12/11/18 at 05:30 Multivitamins (Thera M Plus) 1 tab DAILY PO Last administered on 12/11/18at 08:02; Start 12/11/18 at 09:00 Folic Acid (Folic Acid) 1 mg DAILY PO Last administered on 12/11/18at 08:02; Start 12/11/18 at 09:00 Chlordiazepoxide (Librium) 50 mg PRN Q1HR PRN PO For CIWA 8-14; Start 12/11/18 at 05:30 Chlordiazepoxide (Librium) 100 mg PRN Q1HR PRN PO For CIWA 15 or greater; Start 12/11/18 at 05:30 Lorazepam (Ativan) 4 mg PRN Q1HR PRN PO For CIWA 8-14; Start 12/11/18 at 05:30 Lorazepam (Ativan) 8 mg PRN Q1HR PRN PO For CIWA 15 or greater; Start 12/11/18 at 05:30 Lorazepam (Ativan Inj) 2 mg PRN Q1HR PRN IV For CIWA 8-14 Last administered on 12/11/18at 12:02; Start 12/11/18 at 05:30 Lorazepam (Ativan Inj) 4 mg PRN Q1HR PRN IV For CIWA 15 or greater; Start 12/11/18 at 05:30 Haloperidol Lactate (Haldol Inj) 5 mg PRN Q4HRS PRN IVP Hallucinatns,Confusn ,Delirium; Start 12/11/18 at 05:30 Diphenhydramine HCl (Benadryl) 25 mg PRN Q15MIN PRN IVP EPS symptoms 2'Haldol admin; Start 12/11/18 at 05:30 Clonidine HCl (Catapres) 0.1 mg PRN Q1HR PRN PO SBP > 180 or DBP > 100, MRX3; Start 12/11/18 at 05:30 Active Scripts Active Reported Lorazepam 1 Mg Tablet 1 Tab PO BID Percocet 7.5-325 Mg Tablet (Oxycodone/Acetaminophen) 1 Each Tablet 1 Tab PO PRN Q6HRS PRN Coumadin (Warfarin Sodium) 5 Mg Tablet 1 Tab PO DAILY Lisinopril 20 Mg Tablet 1 Tab PO DAILY Allergies Allergies: Coded Allergies: No Known Drug Allergies (Unverified , 10/05/17) ROS General: YES: Fatigue, Malaise, Appetite PSYCHOLOGICAL ROS: YES: Anxiety Eyes: Yes Decreased vision HEENT: YES: Heacaches ALLERGY AND IMMUNOLOGY: YES: Seasonal Allergies Respiratory: YES: Cough Genitourinary: YES Other (NOCTURIA) Musculoskeletal: Yes Muscular Weakness Neurological: Yes Dizziness, Yes Weakness Skin: Yes Dry Skin Physical Exam General: Alert, Cooperative, No acute distress HEENT: Atraumatic, PERRLA Lungs: Clear to auscultation, Normal air movement Heart: Regular rate, Normal S1, Normal S2 Abdomen: Normal bowel sounds, Soft, No tenderness Extremities: No clubbing Skin: No breakdown Neuro: Normal speech Psych/Mental Status: Mental status NL, Mood NL MUSCULOSKELETAL: No joint tenderness, No deformity, No swelling Vitals VITALS Vital Signs Date Time Temp Pulse Resp B/P (MAP) Pulse Ox O2 Delivery O2 Flow Rate FiO2 12/11/18 12:03 20 93 Room Air 12/11/18 11:24 98.8 100 111/68 (82) 98.8 Labs Labs Laboratory Tests Test 12/10/18 19:05 12/10/18 19:11 12/10/18 19:27 12/11/18 06:20 White Blood Count 4.9 x10^3/uL (4.0-11.0) Red Blood Count 4.04 x10^6/uL (4.30-5.70) Hemoglobin 10.6 g/dL (13.0-17.5) Hematocrit 31.3 % (39.0-53.0) Mean Corpuscular Volume 77 fL (79-100) Mean Corpuscular Hemoglobin 26 pg (25-35) Mean Corpuscular Hemoglobin Concent 34 g/dL (31-37) Red Cell Distribution Width 18.9 % (11.5-14.5) Platelet Count 270 x10^3/uL (140-400) Neutrophils (%) (Auto) 43 % (31-73) Lymphocytes (%) (Auto) 37 % (24-48) Monocytes (%) (Auto) 11 % (0-9) Eosinophils (%) (Auto) 8 % (0-3) Basophils (%) (Auto) 1 % (0-3) Neutrophils # (Auto) 2.1 x10^3/uL (1.8-7.7) Lymphocytes # (Auto) 1.8 x10^3/uL (1.0-4.8) Monocytes # (Auto) 0.5 x10^3/uL (0.0-1.1) Eosinophils # (Auto) 0.4 x10^3/uL (0.0-0.7) Basophils # (Auto) 0.0 x10^3/uL (0.0-0.2) Prothrombin Time 34.3 SEC (11.7-14.0) Prothromb Time International Ratio 3.4 (0.8-1.1) Sodium Level 119 mmol/L (136-145) Potassium Level 3.3 mmol/L (3.5-5.1) Chloride Level 84 mmol/L (98-107) Carbon Dioxide Level 30 mmol/L (21-32) Anion Gap 5 (6-14) 18 mmol/L (6-14) Blood Urea Nitrogen 8 mg/dL (8-26) Creatinine 0.8 mg/dL (0.7-1.3) Estimated GFR (Cockcroft-Gault) 99.6 BUN/Creatinine Ratio 10 (6-20) Glucose Level 85 mg/dL (70-99) 86 mg/dL (70-99) Calcium Level 8.3 mg/dL (8.5-10.1) Total Bilirubin 0.3 mg/dL (0.2-1.0) 0.4 mg/dL (0.2-1.0) Aspartate Amino Transf (AST/SGOT) 27 U/L (15-37) 25 U/L (15-37) Alanine Aminotransferase (ALT/SGPT) 23 U/L (16-63) 23 U/L (16-63) Alkaline Phosphatase 63 U/L (46-116) 55 U/L (46-116) Troponin I Quantitative < 0.017 ng/mL (0.000-0.055) Total Protein 6.7 g/dL (6.4-8.2) 6.4 g/dL (6.4-8.2) Albumin 3.5 g/dL (3.4-5.0) 3.3 g/dL (3.4-5.0) Albumin/Globulin Ratio 1.1 (1.0-1.7) Ethyl Alcohol Level 231 mg/dL (0-10) Bedside Hemoglobin 11.6 g/dL (14-18) Bedside Hematocrit 34 % (37-52) Bedside Sodium 117 mmol/L (135-145) Bedside Potassium 3.2 mmol/L (3.5-5.0) Bedside Chloride 79 mmol/L (98-110) Bedside Total CO2 25 mmol/L (23-32) Bedside Blood Urea Nitrogen 7 mg/dL (8-26) Bedside Creatinine 1.2 mg/dL (0.5-1.4) Bedside Ionized Calcium (Smiley) 1.01 mmol/L (1.13-1.32) Urine Collection Type Unknown Urine Color Yellow Urine Clarity Clear Urine pH 5.5 Urine Specific [place] <=1.005 Urine Protein Negative mg/dL (NEG-TRACE) Urine Glucose (UA) Negative mg/dL (NEG) Urine Ketones (Stick) Negative mg/dL (NEG) Urine Blood Negative (NEG) Urine Nitrite Negative (NEG) Urine Bilirubin Negative (NEG) Urine Urobilinogen Dipstick 0.2 mg/dL (0.2 mg/dL) Urine Leukocyte Esterase Negative (NEG) Urine RBC 0 /HPF (0-2) Urine WBC 0 /HPF (0-4) Urine Squamous Epithelial Cells Occ /LPF Urine Bacteria 0 /HPF (0-FEW) Direct Bilirubin 0.2 mg/dL (0.0-0.2) Laboratory Tests Test 12/10/18 19:05 12/10/18 19:11 12/10/18 19:27 12/11/18 06:20 White Blood Count 4.9 x10^3/uL (4.0-11.0) Red Blood Count 4.04 x10^6/uL (4.30-5.70) Hemoglobin 10.6 g/dL (13.0-17.5) Hematocrit 31.3 % (39.0-53.0) Mean Corpuscular Volume 77 fL (79-100) Mean Corpuscular Hemoglobin 26 pg (25-35) Mean Corpuscular Hemoglobin Concent 34 g/dL (31-37) Red Cell Distribution Width 18.9 % (11.5-14.5) Platelet Count 270 x10^3/uL (140-400) Neutrophils (%) (Auto) 43 % (31-73) Lymphocytes (%) (Auto) 37 % (24-48) Monocytes (%) (Auto) 11 % (0-9) Eosinophils (%) (Auto) 8 % (0-3) Basophils (%) (Auto) 1 % (0-3) Neutrophils # (Auto) 2.1 x10^3/uL (1.8-7.7) Lymphocytes # (Auto) 1.8 x10^3/uL (1.0-4.8) Monocytes # (Auto) 0.5 x10^3/uL (0.0-1.1) Eosinophils # (Auto) 0.4 x10^3/uL (0.0-0.7) Basophils # (Auto) 0.0 x10^3/uL (0.0-0.2) Prothrombin Time 34.3 SEC (11.7-14.0) Prothromb Time International Ratio 3.4 (0.8-1.1) Sodium Level 119 mmol/L (136-145) Potassium Level 3.3 mmol/L (3.5-5.1) Chloride Level 84 mmol/L (98-107) Carbon Dioxide Level 30 mmol/L (21-32) Anion Gap 5 (6-14) 18 mmol/L (6-14) Blood Urea Nitrogen 8 mg/dL (8-26) Creatinine 0.8 mg/dL (0.7-1.3) Estimated GFR (Cockcroft-Gault) 99.6 BUN/Creatinine Ratio 10 (6-20) Glucose Level 85 mg/dL (70-99) 86 mg/dL (70-99) Calcium Level 8.3 mg/dL (8.5-10.1) Total Bilirubin 0.3 mg/dL (0.2-1.0) 0.4 mg/dL (0.2-1.0) Aspartate Amino Transf (AST/SGOT) 27 U/L (15-37) 25 U/L (15-37) Alanine Aminotransferase (ALT/SGPT) 23 U/L (16-63) 23 U/L (16-63) Alkaline Phosphatase 63 U/L (46-116) 55 U/L (46-116) Troponin I Quantitative < 0.017 ng/mL (0.000-0.055) Total Protein 6.7 g/dL (6.4-8.2) 6.4 g/dL (6.4-8.2) Albumin 3.5 g/dL (3.4-5.0) 3.3 g/dL (3.4-5.0) Albumin/Globulin Ratio 1.1 (1.0-1.7) Ethyl Alcohol Level 231 mg/dL (0-10) Bedside Hemoglobin 11.6 g/dL (14-18) Bedside Hematocrit 34 % (37-52) Bedside Sodium 117 mmol/L (135-145) Bedside Potassium 3.2 mmol/L (3.5-5.0) Bedside Chloride 79 mmol/L (98-110) Bedside Total CO2 25 mmol/L (23-32) Bedside Blood Urea Nitrogen 7 mg/dL (8-26) Bedside Creatinine 1.2 mg/dL (0.5-1.4) Bedside Ionized Calcium (Smiley) 1.01 mmol/L (1.13-1.32) Urine Collection Type Unknown Urine Color Yellow Urine Clarity Clear Urine pH 5.5 Urine Specific [place] <=1.005 Urine Protein Negative mg/dL (NEG-TRACE) Urine Glucose (UA) Negative mg/dL (NEG) Urine Ketones (Stick) Negative mg/dL (NEG) Urine Blood Negative (NEG) Urine Nitrite Negative (NEG) Urine Bilirubin Negative (NEG) Urine Urobilinogen Dipstick 0.2 mg/dL (0.2 mg/dL) Urine Leukocyte Esterase Negative (NEG) Urine RBC 0 /HPF (0-2) Urine WBC 0 /HPF (0-4) Urine Squamous Epithelial Cells Occ /LPF Urine Bacteria 0 /HPF (0-FEW) Direct Bilirubin 0.2 mg/dL (0.0-0.2) Assessment/Plan Assessment/Plan IMP SEVERE HYPONATREMIA ETOH ABUSE PLAN TSH SALINE 3% SALINE URINE LYTES AND OSMOLALITY WILL FOLLOW LESLI AMADOR MD Dec 11, 2018 12:19
[2018-12-11] MEDS ORDERED: SODIUM CHLORIDE 3 % 150 ML IV ONE (13:00)
[2018-12-11] MEDS: LISINOPRIL 20 MG TABLET PO SCH (13:53)
[2018-12-11 14:41] VITALS: BP 118/73
[2018-12-11] MEDS: oxyCODONE/APAP 7.5/325 1 TAB TABLET PO PRN ×2 (15:18→21:23)
[2018-12-11 19:54] VITALS: BP 112/62
[2018-12-11] MEDS: LORazepam 1 MG TABLET PO PRN (20:46)
[2018-12-11 23:14] VITALS: BP 153/82
[2018-12-12 00:08] LABS: CALCIUM 8.3 mg/dL (8.5-10.1)
[2018-12-12 00:11] LABS: UR POTASSIUM 34.4 mmol/L (Not Estab.)
[2018-12-12 03:32] VITALS: BP 144/76
[2018-12-12 04:56] LABS: BASO # 0.1 x10^3/uL (0.0-0.2); BASO % 2 % (0-3); EOS # 0.3 x10^3/uL (0.0-0.7); EOS % 6 % (0-3); HEMATOCRIT 28.6 % (39.0-53.0); HEMOGLOBIN 9.5 g/dL (13.0-17.5); LYMPH # 1.1 x10^3/uL (1.0-4.8); LYMPH % 25 % (24-48); MEAN CORPUSCULAR HEMOGLOBIN 26 pg (25-35); MEAN CORPUSCULAR HGB CONC 33 g/dL (31-37); MEAN CORPUSCULAR VOLUME 79 fL (79-100); MONO # 0.6 x10^3/uL (0.0-1.1); MONO % 13 % (0-9); NEUT # 2.6 x10^3/uL (1.8-7.7); NEUT % 55 % (31-73); PLATELET COUNT 247 x10^3/uL (140-400); RED BLOOD COUNT 3.61 x10^6/uL (4.30-5.70); RED CELL DISTRIBUTION WIDTH 19.7 % (11.5-14.5); WHITE BLOOD COUNT 4.6 x10^3/uL (4.0-11.0)
[2018-12-12 05:34] LABS: CALCIUM 8.4 mg/dL (8.5-10.1); POTASSIUM 3.7 mmol/L (3.5-5.1)
[2018-12-12] MEDS: IV NORMAL SALINE 1000ML BAG 1,000 ML IV SCH ×2 (07:18→23:20)
--- NOTE | 2018-12-12 07:27 | PDOC ---
PROGRESS NOTES History of Present Illness History of Present Illness ASSESSMENT AND PLAN: Fall, alcohol abuse , severe hyponatremia chronic anticoagulation and coronary artery disease. admitted. consult Nephrology, wound care, home meds. alcohol withdrawal protocol, prn DVT prophylaxis. Full code. 27 min pt exam, chart review, > 50% of time spent with exam, chart review, pt care coordination Vitals Vitals Vital Signs Date Time Temp Pulse Resp B/P (MAP) Pulse Ox O2 Delivery O2 Flow Rate FiO2 12/12/18 03:32 98.0 59 16 144/76 (98) 98 Room Air 98.0 Physical Exam Physical Exam HEART: No history of palpitations, chest pain or shortness of breath on exertion. LUNGS: Denies cough, hemoptysis, wheezing or shortness of breath. GASTROINTESTINAL: Denies changes in appetite, nausea, vomiting, diarrhea or constipation. GENITOURINARY: No history of frequency, urgency, hesitancy or nocturia. NEUROLOGIC: Denies history of numbness, tingling, tremor or weakness. PSYCHIATRIC: No history of panic, anxiety or depression. ENDOCRINE: No history of heat or cold intolerance, polyuria or polydipsia. EXTREMITIES: He has a lot of bruising on his arms consistent with his chronic anticoagulation with Coumadin. General: Alert, Oriented X3, Cooperative, No acute distress Heart: Regular rate, Normal S1, Normal S2 Lungs: Wheezing Abdomen: Soft Extremities: No clubbing, No cyanosis, No edema Skin: No breakdown Labs LABS Laboratory Tests Test 12/11/18 14:38 12/11/18 23:35 12/12/18 04:20 Urine Sodium 87 mmol/L (Not Estab.) Urine Potassium 34.4 mmol/L (Not Estab.) Urine Chloride 57 mmol/L (Not Estab.) Sodium Level 135 mmol/L (136-145) 136 mmol/L (136-145) Potassium Level 4.0 mmol/L (3.5-5.1) 3.7 mmol/L (3.5-5.1) Chloride Level 100 mmol/L (98-107) 102 mmol/L (98-107) Carbon Dioxide Level 28 mmol/L (21-32) 26 mmol/L (21-32) Anion Gap 7 (6-14) 8 (6-14) Blood Urea Nitrogen 15 mg/dL (8-26) 13 mg/dL (8-26) Creatinine 1.0 mg/dL (0.7-1.3) 1.0 mg/dL (0.7-1.3) Estimated GFR (Cockcroft-Gault) 77.0 77.0 Glucose Level 165 mg/dL (70-99) 141 mg/dL (70-99) Calcium Level 8.3 mg/dL (8.5-10.1) 8.4 mg/dL (8.5-10.1) White Blood Count 4.6 x10^3/uL (4.0-11.0) Red Blood Count 3.61 x10^6/uL (4.30-5.70) Hemoglobin 9.5 g/dL (13.0-17.5) Hematocrit 28.6 % (39.0-53.0) Mean Corpuscular Volume 79 fL (79-100) Mean Corpuscular Hemoglobin 26 pg (25-35) Mean Corpuscular Hemoglobin Concent 33 g/dL (31-37) Red Cell Distribution Width 19.7 % (11.5-14.5) Platelet Count 247 x10^3/uL (140-400) Neutrophils (%) (Auto) 55 % (31-73) Lymphocytes (%) (Auto) 25 % (24-48) Monocytes (%) (Auto) 13 % (0-9) Eosinophils (%) (Auto) 6 % (0-3) Basophils (%) (Auto) 2 % (0-3) Neutrophils # (Auto) 2.6 x10^3/uL (1.8-7.7) Lymphocytes # (Auto) 1.1 x10^3/uL (1.0-4.8) Monocytes # (Auto) 0.6 x10^3/uL (0.0-1.1) Eosinophils # (Auto) 0.3 x10^3/uL (0.0-0.7) Basophils # (Auto) 0.1 x10^3/uL (0.0-0.2) Assessment and Plan Assessmemt and Plan Problems Medical Problems: (1) Alcohol abuse Status: Acute (2) Closed head injury Status: Acute Comment Review of Relevant I have reviewed the following items robert (where applicable) has been applied. Labs Laboratory Tests Test 12/10/18 19:05 9/25/19 19:11 12/10/18 19:27 12/11/18 06:20 White Blood Count 4.9 x10^3/uL (4.0-11.0) Red Blood Count 4.04 x10^6/uL (4.30-5.70) Hemoglobin 10.6 g/dL (13.0-17.5) Hematocrit 31.3 % (39.0-53.0) Mean Corpuscular Volume 77 fL (79-100) Mean Corpuscular Hemoglobin 26 pg (25-35) Mean Corpuscular Hemoglobin Concent 34 g/dL (31-37) Red Cell Distribution Width 18.9 % (11.5-14.5) Platelet Count 270 x10^3/uL (140-400) Neutrophils (%) (Auto) 43 % (31-73) Lymphocytes (%) (Auto) 37 % (24-48) Monocytes (%) (Auto) 11 % (0-9) Eosinophils (%) (Auto) 8 % (0-3) Basophils (%) (Auto) 1 % (0-3) Neutrophils # (Auto) 2.1 x10^3/uL (1.8-7.7) Lymphocytes # (Auto) 1.8 x10^3/uL (1.0-4.8) Monocytes # (Auto) 0.5 x10^3/uL (0.0-1.1) Eosinophils # (Auto) 0.4 x10^3/uL (0.0-0.7) Basophils # (Auto) 0.0 x10^3/uL (0.0-0.2) Prothrombin Time 34.3 SEC (11.7-14.0) Prothromb Time International Ratio 3.4 (0.8-1.1) Sodium Level 119 mmol/L (136-145) Potassium Level 3.3 mmol/L (3.5-5.1) Chloride Level 84 mmol/L (98-107) Carbon Dioxide Level 30 mmol/L (21-32) Anion Gap 5 (6-14) 18 mmol/L (6-14) Blood Urea Nitrogen 8 mg/dL (8-26) Creatinine 0.8 mg/dL (0.7-1.3) Estimated GFR (Cockcroft-Gault) 99.6 BUN/Creatinine Ratio 10 (6-20) Glucose Level 85 mg/dL (70-99) 86 mg/dL (70-99) Calcium Level 8.3 mg/dL (8.5-10.1) Total Bilirubin 0.3 mg/dL (0.2-1.0) 0.4 mg/dL (0.2-1.0) Aspartate Amino Transf (AST/SGOT) 27 U/L (15-37) 25 U/L (15-37) Alanine Aminotransferase (ALT/SGPT) 23 U/L (16-63) 23 U/L (16-63) Alkaline Phosphatase 63 U/L (46-116) 55 U/L (46-116) Troponin I Quantitative < 0.017 ng/mL (0.000-0.055) Total Protein 6.7 g/dL (6.4-8.2) 6.4 g/dL (6.4-8.2) Albumin 3.5 g/dL (3.4-5.0) 3.3 g/dL (3.4-5.0) Albumin/Globulin Ratio 1.1 (1.0-1.7) Ethyl Alcohol Level 231 mg/dL (0-10) Bedside Hemoglobin 11.6 g/dL (14-18) Bedside Hematocrit 34 % (37-52) Bedside Sodium 117 mmol/L (135-145) Bedside Potassium 3.2 mmol/L (3.5-5.0) Bedside Chloride 79 mmol/L (98-110) Bedside Total CO2 25 mmol/L (23-32) Bedside Blood Urea Nitrogen 7 mg/dL (8-26) Bedside Creatinine 1.2 mg/dL (0.5-1.4) Bedside Ionized Calcium (Smiley) 1.01 mmol/L (1.13-1.32) Urine Collection Type Unknown Urine Color Yellow Urine Clarity Clear Urine pH 5.5 Urine Specific [place] <=1.005 Urine Protein Negative mg/dL (NEG-TRACE) Urine Glucose (UA) Negative mg/dL (NEG) Urine Ketones (Stick) Negative mg/dL (NEG) Urine Blood Negative (NEG) Urine Nitrite Negative (NEG) Urine Bilirubin Negative (NEG) Urine Urobilinogen Dipstick 0.2 mg/dL (0.2 mg/dL) Urine Leukocyte Esterase Negative (NEG) Urine RBC 0 /HPF (0-2) Urine WBC 0 /HPF (0-4) Urine Squamous Epithelial Cells Occ /LPF Urine Bacteria 0 /HPF (0-FEW) Direct Bilirubin 0.2 mg/dL (0.0-0.2) Test 12/11/18 14:38 12/11/18 23:35 12/12/18 04:20 Urine Sodium 87 mmol/L (Not Estab.) Urine Potassium 34.4 mmol/L (Not Estab.) Urine Chloride 57 mmol/L (Not Estab.) Sodium Level 135 mmol/L (136-145) 136 mmol/L (136-145) Potassium Level 4.0 mmol/L (3.5-5.1) 3.7 mmol/L (3.5-5.1) Chloride Level 100 mmol/L (98-107) 102 mmol/L (98-107) Carbon Dioxide Level 28 mmol/L (21-32) 26 mmol/L (21-32) Anion Gap 7 (6-14) 8 (6-14) Blood Urea Nitrogen 15 mg/dL (8-26) 13 mg/dL (8-26) Creatinine 1.0 mg/dL (0.7-1.3) 1.0 mg/dL (0.7-1.3) Estimated GFR (Cockcroft-Gault) 77.0 77.0 Glucose Level 165 mg/dL (70-99) 141 mg/dL (70-99) Calcium Level 8.3 mg/dL (8.5-10.1) 8.4 mg/dL (8.5-10.1) White Blood Count 4.6 x10^3/uL (4.0-11.0) Red Blood Count 3.61 x10^6/uL (4.30-5.70) Hemoglobin 9.5 g/dL (13.0-17.5) Hematocrit 28.6 % (39.0-53.0) Mean Corpuscular Volume 79 fL (79-100) Mean Corpuscular Hemoglobin 26 pg (25-35) Mean Corpuscular Hemoglobin Concent 33 g/dL (31-37) Red Cell Distribution Width 19.7 % (11.5-14.5) Platelet Count 247 x10^3/uL (140-400) Neutrophils (%) (Auto) 55 % (31-73) Lymphocytes (%) (Auto) 25 % (24-48) Monocytes (%) (Auto) 13 % (0-9) Eosinophils (%) (Auto) 6 % (0-3) Basophils (%) (Auto) 2 % (0-3) Neutrophils # (Auto) 2.6 x10^3/uL (1.8-7.7) Lymphocytes # (Auto) 1.1 x10^3/uL (1.0-4.8) Monocytes # (Auto) 0.6 x10^3/uL (0.0-1.1) Eosinophils # (Auto) 0.3 x10^3/uL (0.0-0.7) Basophils # (Auto) 0.1 x10^3/uL (0.0-0.2) Laboratory Tests Test 12/11/18 14:38 12/11/18 23:35 12/12/18 04:20 Urine Sodium 87 mmol/L (Not Estab.) Urine Potassium 34.4 mmol/L (Not Estab.) Urine Chloride 57 mmol/L (Not Estab.) Sodium Level 135 mmol/L (136-145) 136 mmol/L (136-145) Potassium Level 4.0 mmol/L (3.5-5.1) 3.7 mmol/L (3.5-5.1) Chloride Level 100 mmol/L (98-107) 102 mmol/L (98-107) Carbon Dioxide Level 28 mmol/L (21-32) 26 mmol/L (21-32) Anion Gap 7 (6-14) 8 (6-14) Blood Urea Nitrogen 15 mg/dL (8-26) 13 mg/dL (8-26) Creatinine 1.0 mg/dL (0.7-1.3) 1.0 mg/dL (0.7-1.3) Estimated GFR (Cockcroft-Gault) 77.0 77.0 Glucose Level 165 mg/dL (70-99) 141 mg/dL (70-99) Calcium Level 8.3 mg/dL (8.5-10.1) 8.4 mg/dL (8.5-10.1) White Blood Count 4.6 x10^3/uL (4.0-11.0) Red Blood Count 3.61 x10^6/uL (4.30-5.70) Hemoglobin 9.5 g/dL (13.0-17.5) Hematocrit 28.6 % (39.0-53.0) Mean Corpuscular Volume 79 fL (79-100) Mean Corpuscular Hemoglobin 26 pg (25-35) Mean Corpuscular Hemoglobin Concent 33 g/dL (31-37) Red Cell Distribution Width 19.7 % (11.5-14.5) Platelet Count 247 x10^3/uL (140-400) Neutrophils (%) (Auto) 55 % (31-73) Lymphocytes (%) (Auto) 25 % (24-48) Monocytes (%) (Auto) 13 % (0-9) Eosinophils (%) (Auto) 6 % (0-3) Basophils (%) (Auto) 2 % (0-3) Neutrophils # (Auto) 2.6 x10^3/uL (1.8-7.7) Lymphocytes # (Auto) 1.1 x10^3/uL (1.0-4.8) Monocytes # (Auto) 0.6 x10^3/uL (0.0-1.1) Eosinophils # (Auto) 0.3 x10^3/uL (0.0-0.7) Basophils # (Auto) 0.1 x10^3/uL (0.0-0.2) Medications Current Medications Fentanyl Citrate (Fentanyl 2ml Vial) 50 mcg 1X ONCE IV Last administered on 12/10/18at 20:03; Start 12/10/18 at 19:15; Stop 12/10/18 at 19:16; Status DC Iohexol (Omnipaque 300 Mg/ml) 75 ml 1X ONCE IV Last administered on 12/10/18at 19:43; Start 12/10/18 at 19:15; Stop 12/10/18 at 19:16; Status DC Sodium Chloride 1,000 ml @ 1,000 mls/hr 1X ONCE IV Last administered on 12/10/18at 19:45; Start 12/10/18 at 19:45; Stop 12/10/18 at 20:44; Status DC Morphine Sulfate (Morphine Sulfate) 2 mg PRN Q2HR PRN IV PAIN Last administered on 12/11/18at 12:03; Start 12/10/18 at 20:15; Stop 12/11/18 at 20:14; Status DC Sodium Chloride 1,000 ml @ 100 mls/hr Q10H IV Last administered on 12/11/18at 08:10; Start 12/10/18 at 20:07; Stop 12/11/18 at 12:21; Status DC Diphtheria/ Tetanus/Acell Pertussis (Boostrix) 0.5 ml ONCE ONCE VAX IM Last administered on 12/10/18at 21:07; Start 12/10/18 at 20:15; Stop 12/10/18 at 20:16; Status DC Ondansetron HCl (Zofran) 4 mg PRN Q6HRS PRN IV NAUSEA/VOMITING 1ST CHOICE Last administered on 12/11/18at 20:37; Start 12/11/18 at 05:30 Multivitamins (Thera M Plus) 1 tab DAILY PO Last administered on 12/11/18at 08:02; Start 12/11/18 at 09:00 Folic Acid (Folic Acid) 1 mg DAILY PO Last administered on 12/11/18at 08:02; Start 12/11/18 at 09:00 Chlordiazepoxide (Librium) 50 mg PRN Q1HR PRN PO For CIWA 8-14; Start 12/11/18 at 05:30 Chlordiazepoxide (Librium) 100 mg PRN Q1HR PRN PO For CIWA 15 or greater; Start 12/11/18 at 05:30 Lorazepam (Ativan) 4 mg PRN Q1HR PRN PO For CIWA 8-14 Last administered on 12/11/18at 20:46; Start 12/11/18 at 05:30 Lorazepam (Ativan) 8 mg PRN Q1HR PRN PO For CIWA 15 or greater; Start 12/11/18 at 05:30 Lorazepam (Ativan Inj) 2 mg PRN Q1HR PRN IV For CIWA 8-14 Last administered on 12/11/18at 17:02; Start 12/11/18 at 05:30 Lorazepam (Ativan Inj) 4 mg PRN Q1HR PRN IV For CIWA 15 or greater; Start 12/11/18 at 05:30 Haloperidol Lactate (Haldol Inj) 5 mg PRN Q4HRS PRN IVP Hallucinatns,Confusn,Delirium; Start 12/11/18 at 05:30 Diphenhydramine HCl (Benadryl) 25 mg PRN Q15MIN PRN IVP EPS symptoms 2'Haldol admin; Start 12/11/18 at 05:30 Clonidine HCl (Catapres) 0.1 mg PRN Q1HR PRN PO SBP > 180 or DBP > 100, MRX3; Start 12/11/18 at 05:30 Sodium Chloride 1,000 ml @ 60 mls/hr [id number] IV Last administered on 12/12/18at 07:18; Start 12/11/18 at 13:00 Sodium Chloride 150 ml @ 50 mls/hr 1X ONCE IV Last administered on 12/11/18at 13:48; Start 12/11/18 at 13:00; Stop 12/11/18 at 15:59; Status DC Lisinopril (Prinivil) 20 mg DAILY PO ; Start 12/11/18 at 14:00 Oxycodone/ Acetaminophen (Percocet 7.5/ 325) 1 tab PRN Q6HRS PRN PO PAIN Last administered on 12/11/18at 21:23; Start 12/11/18 at 13:30 Active Scripts Active Reported Lorazepam 1 Mg Tablet 1 Tab PO BID Percocet 7.5-325 Mg Tablet (Oxycodone/Acetaminophen) 1 Each Tablet 1 Tab PO PRN Q6HRS PRN Coumadin (Warfarin Sodium) 5 Mg Tablet 1 Tab PO DAILY Lisinopril 20 Mg Tablet 1 Tab PO DAILY Vitals/I & O Vital Sign - Last 24 Hours 12/11/18 12/11/18 12/11/18 12/11/18 07:36 08:00 08:03 08:33 Temp 98.4 98.4 Pulse 91 Resp 20 20 20 B/P (MAP) 144/83 (103) Pulse Ox 97 97 97 O2 Delivery Room Air Room Air Room Air Room Air 12/11/18 12/11/18 12/11/18 12/11/18 10:03 10:20 11:24 12:03 Temp 98.8 98.8 Pulse 100 Resp 20 20 18 20 B/P (MAP) 111/68 (82) Pulse Ox 97 97 93 93 O2 Delivery Room Air Room Air Room Air Room Air 12/11/18 12/11/18 12/11/18 12/11/18 12:33 13:53 14:41 15:18 Temp 97.8 97.8 Pulse 100 97 Resp 20 20 20 B/P (MAP) 111/68 118/73 (88) Pulse Ox 93 97 97 O2 Delivery Room Air Room Air Room Air 12/11/18 12/11/18 12/11/18 12/12/18 16:08 19:54 23:14 03:32 Temp 98.3 98.2 98.0 98.3 98.2 98.0 Pulse 97 93 59 Resp 20 20 16 16 B/P (MAP) 112/62 (79) 153/82 (105) 144/76 (98) Pulse Ox 97 97 99 98 O2 Delivery Room Air Room Air Room Air Room Air Intake and Output 12/11/18 12/11/18 12/12/18 15:00 23:00 07:00 Intake Total 480 ml 840 ml 240 ml Balance 480 ml 840 ml 240 ml MER DAVIES MD Dec 12, 2018 07:27
[2018-12-12 07:50] VITALS: BP 154/78
[2018-12-12] MEDS: FOLIC ACID 1 MG TABLET. PO SCH (08:14)
[2018-12-12] MEDS: LISINOPRIL 20 MG TABLET PO SCH (08:14)
[2018-12-12] MEDS: MULTIVITAMIN with MINERAL TABLET. PO SCH (08:14)
[2018-12-12] MEDS: oxyCODONE/APAP 7.5/325 1 TAB TABLET PO PRN ×3 (10:15→22:25)
[2018-12-12] MEDS: ONDANSETRON PF 4 MG/2 ML VIAL. IV PRN ×3 (10:46→23:21)
[2018-12-12] MEDS: LORazepam 1 MG TABLET PO PRN ×2 (10:50→16:06)
--- NOTE | 2018-12-12 11:45 | PDOC ---
Renal-Progress Notes Subjective Notes Notes NO NEW COMPLAINTS History of Present Illness Hx of present illness BETTER Vitals Vitals Vital Signs Date Time Temp Pulse Resp B/P (MAP) Pulse Ox O2 Delivery O2 Flow Rate FiO2 12/12/18 10:15 20 96 Room Air 12/12/18 08:14 62 154/78 12/12/18 07:50 97.7 97.7 Weight Weight [ ] I.O. Intake and Output Intake and Output 12/12/18 07:00 Intake Total 1560 ml Balance 1560 ml Intake Oral 1560 ml # Voids 8 Labs Labs Laboratory Tests Test 12/11/18 14:38 12/11/18 23:35 12/12/18 04:20 Urine Sodium 87 mmol/L (Not Estab.) Urine Potassium 34.4 mmol/L (Not Estab.) Urine Chloride 57 mmol/L (Not Estab.) Sodium Level 135 mmol/L (136-145) 136 mmol/L (136-145) Potassium Level 4.0 mmol/L (3.5-5.1) 3.7 mmol/L (3.5-5.1) Chloride Level 100 mmol/L (98-107) 102 mmol/L (98-107) Carbon Dioxide Level 28 mmol/L (21-32) 26 mmol/L (21-32) Anion Gap 7 (6-14) 8 (6-14) Blood Urea Nitrogen 15 mg/dL (8-26) 13 mg/dL (8-26) Creatinine 1.0 mg/dL (0.7-1.3) 1.0 mg/dL (0.7-1.3) Estimated GFR (Cockcroft-Gault) 77.0 77.0 Glucose Level 165 mg/dL (70-99) 141 mg/dL (70-99) Calcium Level 8.3 mg/dL (8.5-10.1) 8.4 mg/dL (8.5-10.1) White Blood Count 4.6 x10^3/uL (4.0-11.0) Red Blood Count 3.61 x10^6/uL (4.30-5.70) Hemoglobin 9.5 g/dL (13.0-17.5) Hematocrit 28.6 % (39.0-53.0) Mean Corpuscular Volume 79 fL (79-100) Mean Corpuscular Hemoglobin 26 pg (25-35) Mean Corpuscular Hemoglobin Concent 33 g/dL (31-37) Red Cell Distribution Width 19.7 % (11.5-14.5) Platelet Count 247 x10^3/uL (140-400) Neutrophils (%) (Auto) 55 % (31-73) Lymphocytes (%) (Auto) 25 % (24-48) Monocytes (%) (Auto) 13 % (0-9) Eosinophils (%) (Auto) 6 % (0-3) Basophils (%) (Auto) 2 % (0-3) Neutrophils # (Auto) 2.6 x10^3/uL (1.8-7.7) Lymphocytes # (Auto) 1.1 x10^3/uL (1.0-4.8) Monocytes # (Auto) 0.6 x10^3/uL (0.0-1.1) Eosinophils # (Auto) 0.3 x10^3/uL (0.0-0.7) Basophils # (Auto) 0.1 x10^3/uL (0.0-0.2) Review of Systems Constitutional: yes: alert, oriented Ears/Nose/Throat: Yes: no symptom reported Eyes: Yes: no symptom reported Pulmonary: Yes no symptom reported Cardiovascular: Yes no symptom reported Gastrointestional: Yes: no symptom reported Genitourinary: Yes: no symptom reported Musculoskeletal: Yes: no symptom reported Skin: Yes no symptom reported Physical Exam General Appearance: no apparent distress Skin: warm Respiratory: bilateral CTA Heart: S1S2 Abdomen: soft, bowel sounds present Genitourinary: bladder flat Extremities: pulses present Neurology: alert, oriented Assessment Assessment IMP SEVERE HYPONATREMIA-ESSENTIALLY RESOLVED ETOH ABUSE PLAN ENC ABSTINENCE WILL SIGN OFF LESLI AMADOR MD Dec 12, 2018 11:45
[2018-12-12 11:50] VITALS: BP 161/74
[2018-12-12 12:14] LABS: PROTHROMBIN TIME PATIENT 21.7 SEC (11.7-14.0)
--- NOTE | 2018-12-12 13:26 | NUR ---
SW consulted for ETOH use. Pt seen by PAT team and is provided with info re OP tx options.
[2018-12-12] MEDS: CALCIUM CARBONATE 500 MG TABLET PO SCH ×2 (13:29→17:35)
[2018-12-12 15:32] VITALS: BP 176/70
[2018-12-12 19:50] VITALS: BP 161/52
[2018-12-12] MEDS: chlordiazePOXIDE HCL 25 MG CAPSULE PO PRN (22:26)
[2018-12-12 23:23] VITALS: BP 164/72
[2018-12-13] VITALS (18 sets, daily range): BP systolic 98–175; BP diastolic 59–104
[2018-12-13] MEDS: LORazepam 1 MG TABLET PO PRN (02:48)
[2018-12-13] MEDS: HALOPERIDOL LACTATE 5 MG/ML VIAL. IVP PRN ×3 (02:48→10:46)
[2018-12-13] MEDS: diphenhydrAMINE 50 MG/ML VIAL IVP PRN ×4 (03:19→08:59)
--- NOTE | 2018-12-13 04:36 | NUR ---
Patient's sons stated that the patient raised his arms and started shaking them while his eyes rolled back in his head. The staff did not witness a seizure. vitals were taken. 167/63. 98 on Ra. 56.
[2018-12-13] MEDS ORDERED: ZIPRASIDONE IM 20 MG VIAL. IM ONE (05:00)
[2018-12-13] MEDS: IV NORMAL SALINE 1000ML BAG 1,000 ML IV SCH (07:37)
[2018-12-13] MEDS: LORazepam 100 MG in IV NORMAL SALINE 100ML 50 ML IV PRN ×2 (07:38→19:56)
[2018-12-13] MEDS ORDERED: OLANZapine IM 10 MG VIAL. IM ONE (08:37)
[2018-12-13] MEDS: OLANZapine IM 10 MG VIAL. IM PRN (08:43)
[2018-12-13] MEDS: oxyCODONE/APAP 7.5/325 1 TAB TABLET PO PRN (08:59)
[2018-12-13] MEDS: CALCIUM CARBONATE 500 MG TABLET PO SCH ×3 (09:00→18:00)
[2018-12-13] MEDS: LISINOPRIL 20 MG TABLET PO SCH (09:00)
[2018-12-13] MEDS ORDERED: fentaNYL PF VIAL 100 MCG/2 ML VIAL IV ONE (09:45)
[2018-12-13] MEDS ORDERED: fentaNYL PF VIAL 100 MCG/2 ML VIAL ONE (09:47)
[2018-12-13] MEDS: fentaNYL PF VIAL 100 MCG/2 ML VIAL IV PRN ×6 (10:38→22:49)
--- NOTE | 2018-12-13 11:24 | PDOC ---
[employer] PROGRESS NOTE Chief Complaint Chief Complaint Fall ETOH withdrawal History of Present Illness History of Present Illness 12/13/18 Pt seen and examined in the ICU Pt was combative and trying to get out of bed all morning. Pt was given Ativan, Haldol, Benadryl, Zyprexa and finally Fentanyl for patient safety. He was comfortably snoring. Discussed with son who was glad to see the pt finally asleep. PEGGY RN Vitals/I&O Vitals/I&O: Vital Signs Date Time Temp Pulse Resp B/P (MAP) Pulse Ox O2 Delivery O2 Flow Rate FiO2 12/13/18 10:38 25 100 Room Air 12/13/18 04:26 56 167/63 (97) 12/13/18 03:44 97.5 97.5 12/12/18 20:00 95.0 I & O 12/12/18 12/12/18 12/13/18 15:00 23:00 07:00 Intake Total 260 ml 180 ml 210 ml Output Total 1 ml Balance 260 ml 179 ml 210 ml Physical Exam Physical Exam: HEART: No history of palpitations, chest pain or shortness of breath on exertion. LUNGS: Denies cough, hemoptysis, wheezing or shortness of breath. GASTROINTESTINAL: Denies changes in appetite, nausea, vomiting, diarrhea or constipation. GENITOURINARY: No history of frequency, urgency, hesitancy or nocturia. NEUROLOGIC: Denies history of numbness, tingling, tremor or weakness. PSYCHIATRIC: No history of panic, anxiety or depression. ENDOCRINE: No history of heat or cold intolerance, polyuria or polydipsia. EXTREMITIES: He has a lot of bruising on his arms consistent with his chronic anticoagulation with Coumadin. General: Alert, Oriented X3, Cooperative, No acute distress Heart: Regular rate, Normal S1, Normal S2 Lungs: Wheezing Abdomen: Soft Extremities: No clubbing, No cyanosis, No edema Skin: No breakdown Review of Systems Review of Systems: Unable to obtain due to withdrawal Assessment and Plan Assessmemt and Plan Problems Medical Problems: (1) Alcohol abuse Status: Acute (2) Closed head injury Status: Acute ASSESSMENT AND PLAN: Fall, alcohol abuse Corrected hyponatremia chronic anticoagulation coronary artery disease Plan ICU monitoring CIWA protocol IV fluids via banana bags DVT prophylaxis Sedation with Zyprexa, Benadryl, Ativan, Fentanyl Home meds Full code Total time 31 min Comment Review of Relevant I have reviewed the following items robert (where applicable) has been applied. Medications: Current Medications Medications (Trade) Dose Ordered Sig/Siddharth Route PRN Reason Start Time Stop Time Status Last Admin Dose Admin Calcium Carbonate/ Glycine (Oscal) 500 mg TIDAFTMEAL PO 12/12/18 13:00 12/12/18 17:35 Lorazepam 100 mg/ Sodium Chloride 100 ml @ 2 mls/hr CONT PRN IV SEDATION 12/13/18 07:00 12/13/18 07:38 Olanzapine (ZyPREXA IM) 10 mg PRN Q8HRS PRN IM AGITATION 12/13/18 08:30 12/13/18 08:43 Fentanyl Citrate (Fentanyl 2ml Vial) 75 mcg PRN Q30MIN PRN IV MILD PAIN 1-3 12/13/18 10:00 12/13/18 10:38 PAT SANABRIA III DO Dec 13, 2018 11:23
[2018-12-13 12:51] LABS: BASO # 0.1 x10^3/uL (0.0-0.2); BASO % 1 % (0-3); EOS # 0.3 x10^3/uL (0.0-0.7); EOS % 5 % (0-3); HEMATOCRIT 31.3 % (39.0-53.0); HEMOGLOBIN 10.2 g/dL (13.0-17.5); LYMPH # 0.7 x10^3/uL (1.0-4.8); LYMPH % 12 % (24-48); MEAN CORPUSCULAR HEMOGLOBIN 26 pg (25-35); MEAN CORPUSCULAR HGB CONC 33 g/dL (31-37); MEAN CORPUSCULAR VOLUME 80 fL (79-100); MONO # 0.5 x10^3/uL (0.0-1.1); MONO % 8 % (0-9); NEUT # 4.8 x10^3/uL (1.8-7.7); NEUT % 75 % (31-73); PLATELET COUNT 273 x10^3/uL (140-400); RED BLOOD COUNT 3.89 x10^6/uL (4.30-5.70); RED CELL DISTRIBUTION WIDTH 19.6 % (11.5-14.5); WHITE BLOOD COUNT 6.4 x10^3/uL (4.0-11.0)
[2018-12-13 12:57] LABS: ALBUMIN 3.4 g/dL (3.4-5.0); ALBUMIN/GLOBULIN RATIO 1.1 (1.0-1.7); CALCIUM 9.2 mg/dL (8.5-10.1); CREATININE 0.9 mg/dL (0.7-1.3); POTASSIUM 4.1 mmol/L (3.5-5.1); TOTAL BILIRUBIN 0.4 mg/dL (0.2-1.0); TOTAL PROTEIN 6.4 g/dL (6.4-8.2)
[2018-12-13 13:12] LABS: PROTHROMBIN TIME PATIENT 14.1 SEC (11.7-14.0)
--- NOTE | 2018-12-13 14:05 | NUR ---
Pharmacy Warfarin Dosing Note S:Pharmacy consulted to assist with anticoagulation therapy started with target INR: 2 -3 O:SHAW OG is a 58 year old M with Mechanical Aortic Valve LABS: Last INR: 1.1 Last HGB: 10.2 Last HCT: 31.3 Last PLT: 273 Last dose of given on at Previous Regimen: 5MG DAILY Vitamin K given: Drug Interaction Changes: Ongoing Drug Interactions: A:INR of 1.1 is below desired range. Target range for this patient is: 2 -3 P: Warfarin dose: 7.5 mg Today at 1600 Bridge Therapy: Enoxaparin 1 mg/kg q12h Next INR due 12/14/18 Pharmacy anticoagulation service will continue to follow. MIS REINA [facility], 12/13/18 [id number]
[2018-12-13] MEDS ORDERED: WARFARIN 7.5 MG TABLET. PO ONE (16:00)
[2018-12-14] VITALS (27 sets, daily range): BP systolic 96–188; BP diastolic 65–95
[2018-12-14] MEDS: fentaNYL PF VIAL 100 MCG/2 ML VIAL IV PRN ×2 (00:20→01:32)
[2018-12-14] MEDS: IV NORMAL SALINE 1000ML BAG 1,000 ML IV SCH (00:21)
[2018-12-14] MEDS ORDERED: IV NORMAL SALINE 500ML BAG 500 ML IV PRN (01:45)
[2018-12-14] MEDS ORDERED: ATROPINE 0.5 MG/5 ML DISP.SYRINGE. IV PRN (01:45)
[2018-12-14] MEDS ORDERED: NICOTINE 21MG PATCH. TD ONE (01:57)
[2018-12-14] MEDS: NICOTINE 21MG PATCH. TD SCH (01:59)
[2018-12-14] MEDS: DEXMEDETOMIDINE 400 MCG in IV NORMAL SALINE 100ML 96 ML IV PRN (02:14)
--- NOTE | 2018-12-14 02:40 | NUR ---
Pt attempting to climb OOB, behaving aggressively - attempting to hit staff - and swearing at staff, though fentanyl being given Q1H. Tremors continue even when pt asleep. Dr Solis called and new orders received. Precedex gt started at 0.4mg/kg/hr. Increased to 0.8 over 1 hour. Pt resting at this time, though still awakens and attempts to get OOB. Ativan gt on hold at this time. Will continue to monitor closely.
[2018-12-14 05:26] LABS: PROTHROMBIN TIME PATIENT 14.2 SEC (11.7-14.0)
[2018-12-14 05:29] LABS: CALCIUM 8.6 mg/dL (8.5-10.1); CREATININE 0.8 mg/dL (0.7-1.3); GFR 99.6; POTASSIUM 3.9 mmol/L (3.5-5.1)
[2018-12-14] MEDS: LORazepam 1 MG TABLET PO SCH ×2 (09:00→21:25)
[2018-12-14] MEDS: CALCIUM CARBONATE 500 MG TABLET PO SCH ×3 (09:00→15:59)
[2018-12-14] MEDS: LISINOPRIL 20 MG TABLET PO SCH (09:00)
--- NOTE | 2018-12-14 09:26 | NUR ---
Pharmacy Warfarin Dosing Note S:Pharmacy consulted to assist with anticoagulation therapy started with target INR: 2 -3 O:SHAW OG is a 58 year old M with Mechanical Aortic Valve LABS: Last INR: 1.1 Last HGB: 10.2 Last HCT: 31.3 Last PLT: 273 Last dose of did not take given on 12/13/18 at Previous Regimen: 5MG DAILY Vitamin K given: Drug Interaction Changes: Ongoing Drug Interactions: A:INR of 1.1 is below desired range. Target range for this patient is: 2 -3 P: Warfarin dose: 7.5 mg Today at 1600 Bridge Therapy: Enoxaparin 1 mg/kg q12h Next INR due 12/15/18 Pharmacy anticoagulation service will continue to follow. MIS REINA [facility], 12/14/18 [id number]
--- NOTE | 2018-12-14 12:06 | PDOC ---
[facility] PROGRESS NOTE Chief Complaint Chief Complaint Fall ETOH withdrawal History of Present Illness History of Present Illness 12/14/18 Pt seen and examined in the ICU Pt still sedated with Presedex INR 1.1 Hyponatremia has resolved PEGGY AVALOS Reviewed chart 12/13/18 Pt seen and examined in the ICU Pt was combative and trying to get out of bed all morning. Pt was given Ativan, Haldol, Benadryl, Zyprexa and finally Fentanyl for patient safety. He was comfortably snoring. Discussed with son who was glad to see the pt finally asleep. PEGGY RN Vitals/I&O Vitals/I&O: Vital Signs Date Time Temp Pulse Resp B/P (MAP) Pulse Ox O2 Delivery O2 Flow Rate FiO2 12/14/18 10:00 51 22 170/80 (110) 95 Nasal Cannula 2.0 12/14/18 04:00 97.4 97.4 I & O 12/13/18 12/13/18 12/14/18 15:00 23:00 07:00 Intake Total 748 ml 768 ml Output Total 500 ml 500 ml 690 ml Balance -500 ml 248 ml 78 ml Physical Exam Physical Exam: HEART: No history of palpitations, chest pain or shortness of breath on exertion. LUNGS: Denies cough, hemoptysis, wheezing or shortness of breath. GASTROINTESTINAL: Denies changes in appetite, nausea, vomiting, diarrhea or constipation. GENITOURINARY: No history of frequency, urgency, hesitancy or nocturia. NEUROLOGIC: Denies history of numbness, tingling, tremor or weakness. PSYCHIATRIC: No history of panic, anxiety or depression. ENDOCRINE: No history of heat or cold intolerance, polyuria or polydipsia. EXTREMITIES: He has a lot of bruising on his arms consistent with his chronic anticoagulation with Coumadin. General: Alert, Oriented X3, Cooperative, No acute distress Heart: Regular rate, Normal S1, Normal S2 Lungs: Wheezing Abdomen: Soft Extremities: No clubbing, No cyanosis, No edema Skin: No breakdown Labs Labs: Laboratory Tests Test 12/13/18 12:30 12/14/18 04:45 White Blood Count 6.4 x10^3/uL (4.0-11.0) Red Blood Count 3.89 x10^6/uL (4.30-5.70) Hemoglobin 10.2 g/dL (13.0-17.5) Hematocrit 31.3 % (39.0-53.0) Mean Corpuscular Volume 80 fL (79-100) Mean Corpuscular Hemoglobin 26 pg (25-35) Mean Corpuscular Hemoglobin Concent 33 g/dL (31-37) Red Cell Distribution Width 19.6 % (11.5-14.5) Platelet Count 273 x10^3/uL (140-400) Neutrophils (%) (Auto) 75 % (31-73) Lymphocytes (%) (Auto) 12 % (24-48) Monocytes (%) (Auto) 8 % (0-9) Eosinophils (%) (Auto) 5 % (0-3) Basophils (%) (Auto) 1 % (0-3) Neutrophils # (Auto) 4.8 x10^3/uL (1.8-7.7) Lymphocytes # (Auto) 0.7 x10^3/uL (1.0-4.8) Monocytes # (Auto) 0.5 x10^3/uL (0.0-1.1) Eosinophils # (Auto) 0.3 x10^3/uL (0.0-0.7) Basophils # (Auto) 0.1 x10^3/uL (0.0-0.2) Prothrombin Time 14.1 SEC (11.7-14.0) 14.2 SEC (11.7-14.0) Prothromb Time International Ratio 1.1 (0.8-1.1) 1.1 (0.8-1.1) Sodium Level 140 mmol/L (136-145) 142 mmol/L (136-145) Potassium Level 4.1 mmol/L (3.5-5.1) 3.9 mmol/L (3.5-5.1) Chloride Level 107 mmol/L (98-107) 108 mmol/L (98-107) Carbon Dioxide Level 28 mmol/L (21-32) 28 mmol/L (21-32) Anion Gap 5 (6-14) 6 (6-14) Blood Urea Nitrogen 6 mg/dL (8-26) 6 mg/dL (8-26) Creatinine 0.9 mg/dL (0.7-1.3) 0.8 mg/dL (0.7-1.3) Estimated GFR (Cockcroft-Gault) 87.0 99.6 BUN/Creatinine Ratio 7 (6-20) Glucose Level 102 mg/dL (70-99) 108 mg/dL (70-99) Calcium Level 9.2 mg/dL (8.5-10.1) 8.6 mg/dL (8.5-10.1) Total Bilirubin 0.4 mg/dL (0.2-1.0) Aspartate Amino Transf (AST/SGOT) 21 U/L (15-37) Alanine Aminotransferase (ALT/SGPT) 19 U/L (16-63) Alkaline Phosphatase 58 U/L (46-116) Total Protein 6.4 g/dL (6.4-8.2) Albumin 3.4 g/dL (3.4-5.0) Albumin/Globulin Ratio 1.1 (1.0-1.7) Review of Systems Review of Systems: No nausea, no vomiting No chest pain, no palpitations Assessment and Plan Assessmemt and Plan Problems Medical Problems: (1) Alcohol abuse Status: Acute (2) Closed head injury Status: Acute Assessment EtOH withdrawal Closed head injury Plan IV Presedex EtOH withdrawal protocol ICU monitoring Anticoagulation per pharmacy Home meds Full code Total time 31 min Comment Review of Relevant I have reviewed the following items robert (where applicable) has been applied. Medications: Current Medications Medications (Trade) Dose Ordered Sig/Siddharth Route PRN Reason Start Time Stop Time Status Last Admin Dose Admin Enoxaparin Sodium (Lovenox 80mg Syringe) 80 mg Q12HR SQ 12/13/18 14:30 12/14/18 10:38 Warfarin Sodium (Coumadin Per Pharmacy) 1 each PRN DAILY PRN MC SEE COMMENTS 12/13/18 14:15 12/14/18 09:26 Nicotine (Nicoderm Cq 21mg) 1 patch DAILY TD 12/14/18 09:00 12/14/18 01:59 Dexmedetomidine HCl 400 mcg/ Sodium Chloride 100 ml @ 0 mls/hr CONT PRN IV PER PROTOCOL 12/14/18 01:45 12/14/18 02:14 PAT SANABRIA III DO Dec 14, 2018 12:06
[2018-12-14] MEDS: MULTIVIT INFUSN,ADULT 4,VIT K 10 ML, THIAMINE INJ 100 MG, FOLIC ACID INJ 1 MG in IV NOR... IV SCH (13:53)
[2018-12-14] MEDS: ENALAPRILAT 1.25 MG/ML VIAL. IVP SCH ×2 (14:50→21:27)
--- NOTE | 2018-12-14 15:23 | NUR ---
1430 - BP 180's/90's - called Dr. Solis for IV BP meds due to inability to swallow po meds. Order received for Vasotec 1.25mg IV q 8hrs.
[2018-12-14] MEDS ORDERED: WARFARIN 7.5 MG TABLET. PO ONE (16:00)
[2018-12-14] MEDS ORDERED: WARFARIN 5 MG TABLET. PO SCH (16:00)
--- NOTE | 2018-12-14 17:30 | NUR ---
1730 SBP remains high despite Vasotec IV. Dr. Jones notified and order received for Cardene qtt.
[2018-12-14] MEDS: oxyCODONE/APAP 7.5/325 1 TAB TABLET PO PRN (21:27)
[2018-12-14 21:33] LABS: CALCIUM 8.8 mg/dL (8.5-10.1); POTASSIUM 3.8 mmol/L (3.5-5.1)
[2018-12-15] VITALS (24 sets, daily range): BP systolic 105–195; BP diastolic 46–86
[2018-12-15] MEDS: IV NORMAL SALINE 1000ML BAG 1,000 ML IV SCH ×2 (00:44→17:29)
[2018-12-15] MEDS: DEXMEDETOMIDINE 400 MCG in IV NORMAL SALINE 100ML 96 ML IV PRN ×3 (02:25→19:23)
[2018-12-15] MEDS: ENALAPRILAT 1.25 MG/ML VIAL. IVP SCH ×3 (05:51→21:30)
[2018-12-15] MEDS: oxyCODONE/APAP 7.5/325 1 TAB TABLET PO PRN (05:52)
[2018-12-15 06:12] LABS: PROTHROMBIN TIME PATIENT 14.3 SEC (11.7-14.0)
[2018-12-15] MEDS: LORazepam 1 MG TABLET PO SCH ×2 (09:18→21:00)
[2018-12-15] MEDS: CALCIUM CARBONATE 500 MG TABLET PO SCH ×3 (09:18→18:00)
[2018-12-15] MEDS: LISINOPRIL 20 MG TABLET PO SCH (09:19)
[2018-12-15] MEDS: MULTIVIT INFUSN,ADULT 4,VIT K 10 ML, THIAMINE INJ 100 MG, FOLIC ACID INJ 1 MG in IV NOR... IV SCH (09:19)
[2018-12-15] MEDS: NICOTINE 21MG PATCH. TD SCH (09:21)
--- NOTE | 2018-12-15 11:59 | NUR ---
SS following for discharge planning. SS reviewed pt chart. Pt is from home and is currently on room air. SS will continue to follow for discharge planning.
--- NOTE | 2018-12-15 12:14 | PDOC ---
[facility] [facility] PROGRESS NOTE Chief Complaint Chief Complaint Fall ETOH withdrawal History of Present Illness History of Present Illness 12/15/18 Pt seen and examined in the ICU Pt's son was seen leaving the room Pt is still sedated with Precedex Pt requested pain medications Chart and labs reviewed Hyponatremia resolved Pt is bradycardic with rate of 50 D/w RN 12/14/18 Pt seen and examined in the ICU Pt still sedated with Precedex INR 1.1 Hyponatremia has resolved PEGGY RN Reviewed chart 12/13/18 Pt seen and examined in the ICU Pt was combative and trying to get out of bed all morning. Pt was given Ativan, Haldol, Benadryl, Zyprexa and finally Fentanyl for patient safety. He was comfortably snoring. Discussed with son who was glad to see the pt finally asleep. PEGGY AVALOS Vitals/I&O Vitals/I&O: Vital Signs Date Time Temp Pulse Resp B/P (MAP) Pulse Ox O2 Delivery O2 Flow Rate FiO2 12/15/18 11:00 51 15 173/83 (113) 98 Room Air 12/15/18 07:00 97.7 97.7 12/15/18 06:00 4.0 I & O 12/14/18 12/14/18 12/15/18 15:00 23:00 07:00 Intake Total 1202 ml 740 ml Output Total 200 ml 1105 ml 1455 ml Balance -200 ml 97 ml -715 ml Physical Exam Physical Exam: HEART: No history of palpitations, chest pain or shortness of breath on exertion. LUNGS: Denies cough, hemoptysis, wheezing or shortness of breath. GASTROINTESTINAL: Denies changes in appetite, nausea, vomiting, diarrhea or constipation. GENITOURINARY: No history of frequency, urgency, hesitancy or nocturia. NEUROLOGIC: Denies history of numbness, tingling, tremor or weakness. PSYCHIATRIC: No history of panic, anxiety or depression. ENDOCRINE: No history of heat or cold intolerance, polyuria or polydipsia. EXTREMITIES: He has a lot of bruising on his arms consistent with his chronic anticoagulation with Coumadin. General: Alert, Oriented X3, Cooperative, No acute distress Heart: Regular rate, Normal S1, Normal S2 Lungs: Wheezing Abdomen: Soft Extremities: No clubbing, No cyanosis, No edema Skin: No breakdown Labs Labs: Laboratory Tests Test 12/14/18 21:15 12/15/18 04:43 Sodium Level 142 mmol/L (136-145) Potassium Level 3.8 mmol/L (3.5-5.1) Chloride Level 108 mmol/L (98-107) Carbon Dioxide Level 27 mmol/L (21-32) Anion Gap 7 (6-14) Blood Urea Nitrogen 9 mg/dL (8-26) Creatinine 1.0 mg/dL (0.7-1.3) Estimated GFR (Cockcroft-Gault) 77.0 Glucose Level 135 mg/dL (70-99) Calcium Level 8.8 mg/dL (8.5-10.1) Prothrombin Time 14.3 SEC (11.7-14.0) Prothromb Time International Ratio 1.1 (0.8-1.1) Review of Systems Review of Systems: Pt co pain Pt denies fever Assessment and Plan Assessmemt and Plan Problems Medical Problems: (1) Alcohol abuse Status: Acute (2) Closed head injury Status: Acute Assessment EtOH abuse Closed head injury Plan Transfer pt to monitoring floor Begin weaning off IV Precedex EtOH withdrawal protocol ICU monitoring Anticoagulation per pharmacy Home meds Full code Total time 31 min Comment Review of Relevant I have reviewed the following items robert (where applicable) has been applied. Medications: Current Medications Medications (Trade) Dose Ordered Sig/Siddharth Route PRN Reason Start Time Stop Time Status Last Admin Dose Admin Enalaprilat (Vasotec Inj) 1.25 mg Q8HRS IVP 12/14/18 15:00 12/15/18 05:51 Nicardipine HCl 50 mg/Sodium Chloride 250 ml @ 25 mls/hr CONT PRN IV SEE I/O RECORD 12/14/18 17:45 12/14/18 18:16 PAT SANABRIA III DO Dec 15, 2018 12:14
[2018-12-15] MEDS: fentaNYL PF VIAL 100 MCG/2 ML VIAL IV PRN ×7 (13:25→22:27)
--- NOTE | 2018-12-15 13:42 | NUR ---
Pharmacy Warfarin Dosing Note S:Pharmacy consulted to assist with anticoagulation therapy started with target INR: 2 -3 O:LENKASHAW is a 58 year old M with Mechanical Aortic Valve LABS: Last INR: 1.1 Last HGB: 10.2 Last HCT: 31.3 Last PLT: 273 Last dose of did not take given on 12/13/18 at Previous Regimen: 5MG DAILY Vitamin K given: Drug Interaction Changes: Ongoing Drug Interactions: A:INR of 1.1 is below desired range, DOSES NOT ABLE TO GIVE LAST 2 DAYS DUE TO DISORIENTATION PER RN. Target range for this patient is: 2 -3 P: Warfarin dose: 7.5 mg Today at 1600 Bridge Therapy: Enoxaparin 1 mg/kg q12h Next INR due IN AM Pharmacy anticoagulation service will continue to follow. BERNY NGUYỄN [facility], 12/15/18 [id number]
[2018-12-15] MEDS ORDERED: WARFARIN 7.5 MG TABLET. PO ONE (16:00)
[2018-12-16] VITALS (23 sets, daily range): BP systolic 96–168; BP diastolic 63–85
[2018-12-16] MEDS: fentaNYL PF VIAL 100 MCG/2 ML VIAL IV PRN ×10 (00:04→20:08)
[2018-12-16] MEDS: DEXMEDETOMIDINE 400 MCG in IV NORMAL SALINE 100ML 96 ML IV PRN ×5 (01:20→22:00)
[2018-12-16 04:43] LABS: BASO # 0.1 x10^3/uL (0.0-0.2); BASO % 1 % (0-3); EOS # 0.3 x10^3/uL (0.0-0.7); EOS % 6 % (0-3); HEMATOCRIT 34.1 % (39.0-53.0); HEMOGLOBIN 11.2 g/dL (13.0-17.5); LYMPH # 0.7 x10^3/uL (1.0-4.8); LYMPH % 15 % (24-48); MEAN CORPUSCULAR HEMOGLOBIN 26 pg (25-35); MEAN CORPUSCULAR HGB CONC 33 g/dL (31-37); MEAN CORPUSCULAR VOLUME 79 fL (79-100); MONO # 0.5 x10^3/uL (0.0-1.1); MONO % 10 % (0-9); NEUT % 67 % (31-73); PLATELET COUNT 301 x10^3/uL (140-400); RED CELL DISTRIBUTION WIDTH 19.6 % (11.5-14.5); WHITE BLOOD COUNT 4.5 x10^3/uL (4.0-11.0)
[2018-12-16 05:00] LABS: ALBUMIN 2.9 g/dL (3.4-5.0); ALBUMIN/GLOBULIN RATIO 0.8 (1.0-1.7); CALCIUM 8.6 mg/dL (8.5-10.1); CREATININE 0.8 mg/dL (0.7-1.3); GFR 99.6; POTASSIUM 3.7 mmol/L (3.5-5.1); TOTAL BILIRUBIN 0.5 mg/dL (0.2-1.0); TOTAL PROTEIN 6.4 g/dL (6.4-8.2)
[2018-12-16 05:04] LABS: PROTHROMBIN TIME PATIENT 13.1 SEC (11.7-14.0)
[2018-12-16] MEDS: ENALAPRILAT 1.25 MG/ML VIAL. IVP SCH ×3 (06:26→22:05)
[2018-12-16] MEDS: MULTIVIT INFUSN,ADULT 4,VIT K 10 ML, THIAMINE INJ 100 MG, FOLIC ACID INJ 1 MG in IV NOR... IV SCH (08:05)
[2018-12-16] MEDS: diphenhydrAMINE 50 MG/ML VIAL IVP PRN ×3 (08:55→22:08)
[2018-12-16] MEDS: LISINOPRIL 20 MG TABLET PO SCH (09:00)
[2018-12-16] MEDS: NICOTINE 21MG PATCH. TD SCH (09:00)
[2018-12-16] MEDS: CALCIUM CARBONATE 500 MG TABLET PO SCH ×3 (09:00→18:00)
[2018-12-16] MEDS: LORazepam 1 MG TABLET PO SCH ×2 (09:00→21:00)
--- NOTE | 2018-12-16 09:48 | PDOC ---
[facility] [facility] PROGRESS NOTE Chief Complaint Chief Complaint Fall ETOH withdrawal History of Present Illness History of Present Illness 12/16/18 Pt seen and examined in the ICu Pt is sedated with IV Precedex PEGGY AVALOS Pt was combative in the morning Charts and labs reviewed Na: 140 12/15/18 Pt seen and examined in the ICU Pt's son was seen leaving the room Pt is still sedated with Precedex Pt requested pain medications Chart and labs reviewed Hyponatremia resolved Pt is bradycardic with rate of 50 D/w RN 12/14/18 Pt seen and examined in the ICU Pt still sedated with Precedex INR 1.1 Hyponatremia has resolved PEGGY RN Reviewed chart 12/13/18 Pt seen and examined in the ICU Pt was combative and trying to get out of bed all morning. Pt was given Ativan, Haldol, Benadryl, Zyprexa and finally Fentanyl for patient safety. He was comfortably snoring. Discussed with son who was glad to see the pt finally asleep. PEGGY AVALOS Vitals/I&O Vitals/I&O: Vital Signs Date Time Temp Pulse Resp B/P (MAP) Pulse Ox O2 Delivery O2 Flow Rate FiO2 12/16/18 09:00 57 13 129/70 (89) 96 Nasal Cannula 4.0 12/16/18 07:00 96.6 96.6 I & O 12/15/18 12/15/18 12/16/18 14:59 22:59 06:59 Intake Total 340 ml 3035 ml Output Total 385 ml 1840 ml 1255 ml Balance -45 ml 1195 ml -1255 ml Physical Exam Physical Exam: HEART: No history of palpitations, chest pain or shortness of breath on exertion. LUNGS: Denies cough, hemoptysis, wheezing or shortness of breath. GASTROINTESTINAL: Denies changes in appetite, nausea, vomiting, diarrhea or constipation. GENITOURINARY: No history of frequency, urgency, hesitancy or nocturia. NEUROLOGIC: Denies history of numbness, tingling, tremor or weakness. PSYCHIATRIC: No history of panic, anxiety or depression. ENDOCRINE: No history of heat or cold intolerance, polyuria or polydipsia. EXTREMITIES: He has a lot of bruising on his arms consistent with his chronic anticoagulation with Coumadin. General: Alert, Oriented X3, Cooperative, No acute distress Heart: Regular rate, Normal S1, Normal S2 Lungs: Wheezing Abdomen: Soft Extremities: No clubbing, No cyanosis, No edema Skin: No breakdown Labs Labs: Laboratory Tests Test 12/16/18 04:19 White Blood Count 4.5 x10^3/uL (4.0-11.0) Red Blood Count 4.30 x10^6/uL (4.30-5.70) Hemoglobin 11.2 g/dL (13.0-17.5) Hematocrit 34.1 % (39.0-53.0) Mean Corpuscular Volume 79 fL (79-100) Mean Corpuscular Hemoglobin 26 pg (25-35) Mean Corpuscular Hemoglobin Concent 33 g/dL (31-37) Red Cell Distribution Width 19.6 % (11.5-14.5) Platelet Count 301 x10^3/uL (140-400) Neutrophils (%) (Auto) 67 % (31-73) Lymphocytes (%) (Auto) 15 % (24-48) Monocytes (%) (Auto) 10 % (0-9) Eosinophils (%) (Auto) 6 % (0-3) Basophils (%) (Auto) 1 % (0-3) Neutrophils # (Auto) 3.0 x10^3/uL (1.8-7.7) Lymphocytes # (Auto) 0.7 x10^3/uL (1.0-4.8) Monocytes # (Auto) 0.5 x10^3/uL (0.0-1.1) Eosinophils # (Auto) 0.3 x10^3/uL (0.0-0.7) Basophils # (Auto) 0.1 x10^3/uL (0.0-0.2) Prothrombin Time 13.1 SEC (11.7-14.0) Prothromb Time International Ratio 1.0 (0.8-1.1) Sodium Level 140 mmol/L (136-145) Potassium Level 3.7 mmol/L (3.5-5.1) Chloride Level 105 mmol/L (98-107) Carbon Dioxide Level 27 mmol/L (21-32) Anion Gap 8 (6-14) Blood Urea Nitrogen 5 mg/dL (8-26) Creatinine 0.8 mg/dL (0.7-1.3) Estimated GFR (Cockcroft-Gault) 99.6 BUN/Creatinine Ratio 6 (6-20) Glucose Level 109 mg/dL (70-99) Calcium Level 8.6 mg/dL (8.5-10.1) Total Bilirubin 0.5 mg/dL (0.2-1.0) Aspartate Amino Transf (AST/SGOT) 20 U/L (15-37) Alanine Aminotransferase (ALT/SGPT) 16 U/L (16-63) Alkaline Phosphatase 55 U/L (46-116) Total Protein 6.4 g/dL (6.4-8.2) Albumin 2.9 g/dL (3.4-5.0) Albumin/Globulin Ratio 0.8 (1.0-1.7) Review of Systems Review of Systems: No chest pain, no palpitations No nausea, no vomiting Assessment and Plan Assessmemt and Plan Problems Medical Problems: (1) Alcohol abuse Status: Acute (2) Closed head injury Status: Acute Assessment Hyponatremia EtOH withdrawal Plan ICU monitoring EtOH withdrawal protocol IV Precedex for sedation Home meds DVT prophylaxis Full code Comment Review of Relevant I have reviewed the following items robert (where applicable) has been applied. PAT SANABRIA III DO Dec 16, 2018 09:48
[2018-12-16] MEDS: IV NORMAL SALINE 1000ML BAG 1,000 ML IV SCH (11:29)
[2018-12-16] MEDS: HALOPERIDOL LACTATE 5 MG/ML VIAL. IVP PRN ×2 (15:35→20:08)
--- NOTE | 2018-12-16 18:40 | NUR ---
Attempted to decrease precedex this morning after receiving bedside shift report. Patient became combative (kicking, hiting, threatening to spit, and cussing RNs). Resumed precedex and CIWA protocol. VSS.
[2018-12-16] MEDS: OLANZapine IM 10 MG VIAL. IM PRN (20:09)
[2018-12-17] VITALS (22 sets, daily range): BP systolic 142–169; BP diastolic 68–109
[2018-12-17] MEDS: diphenhydrAMINE 50 MG/ML VIAL IVP PRN ×3 (00:57→22:40)
[2018-12-17] MEDS: fentaNYL PF VIAL 100 MCG/2 ML VIAL IV PRN ×4 (00:58→15:47)
[2018-12-17] MEDS: DEXMEDETOMIDINE 400 MCG in IV NORMAL SALINE 100ML 96 ML IV PRN ×2 (03:52→16:58)
[2018-12-17] MEDS: OLANZapine IM 10 MG VIAL. IM PRN ×3 (04:03→16:58)
[2018-12-17] MEDS: IV NORMAL SALINE 1000ML BAG 1,000 ML IV SCH ×2 (04:09→19:00)
[2018-12-17 04:14] LABS: BASO # 0.1 x10^3/uL (0.0-0.2); BASO % 1 % (0-3); EOS # 0.2 x10^3/uL (0.0-0.7); EOS % 6 % (0-3); HEMATOCRIT 33.7 % (39.0-53.0); LYMPH # 0.7 x10^3/uL (1.0-4.8); LYMPH % 18 % (24-48); MEAN CORPUSCULAR HEMOGLOBIN 26 pg (25-35); MEAN CORPUSCULAR HGB CONC 33 g/dL (31-37); MEAN CORPUSCULAR VOLUME 80 fL (79-100); MONO # 0.5 x10^3/uL (0.0-1.1); MONO % 13 % (0-9); NEUT # 2.5 x10^3/uL (1.8-7.7); NEUT % 61 % (31-73); PLATELET COUNT 295 x10^3/uL (140-400); RED BLOOD COUNT 4.24 x10^6/uL (4.30-5.70); RED CELL DISTRIBUTION WIDTH 19.5 % (11.5-14.5)
[2018-12-17 04:30] LABS: PROTHROMBIN TIME PATIENT 13.7 SEC (11.7-14.0)
[2018-12-17 04:35] LABS: ALBUMIN 2.8 g/dL (3.4-5.0); ALBUMIN/GLOBULIN RATIO 0.8 (1.0-1.7); CALCIUM 8.4 mg/dL (8.5-10.1); CREATININE 0.9 mg/dL (0.7-1.3); POTASSIUM 3.6 mmol/L (3.5-5.1); TOTAL BILIRUBIN 0.5 mg/dL (0.2-1.0); TOTAL PROTEIN 6.1 g/dL (6.4-8.2)
[2018-12-17] MEDS: ENALAPRILAT 1.25 MG/ML VIAL. IVP SCH ×3 (06:26→22:38)
[2018-12-17] MEDS: LORazepam 1 MG TABLET PO SCH ×2 (09:00→21:00)
[2018-12-17] MEDS: LISINOPRIL 20 MG TABLET PO SCH (09:32)
[2018-12-17] MEDS: MULTIVIT INFUSN,ADULT 4,VIT K 10 ML, THIAMINE INJ 100 MG, FOLIC ACID INJ 1 MG in IV NOR... IV SCH (09:34)
[2018-12-17] MEDS: CALCIUM CARBONATE 500 MG TABLET PO SCH ×3 (09:36→18:00)
[2018-12-17] MEDS: NICOTINE 21MG PATCH. TD SCH (09:36)
--- NOTE | 2018-12-17 10:28 | PDOC ---
[employer] [facility] PROGRESS NOTE Chief Complaint Chief Complaint Fall ETOH withdrawal History of Present Illness History of Present Illness 12/17/18 Pt seen and examined in ICU PT still sedated PEGGY AVALOS that she tried to wean the patient off of Precedex but he continued to be combative so she had to continue the sedation meds Consulted neurology to make sure there isn't other pathology causing his mental status change Charts and labs reviewed NA 143 12/16/18 Pt seen and examined in the ICU Pt is sedated with IV Precedex PEGGY AVALOS Pt was combative in the morning Charts and labs reviewed Na: 140 12/15/18 Pt seen and examined in the ICU Pt's son was seen leaving the room Pt is still sedated with Precedex Pt requested pain medications Chart and labs reviewed Hyponatremia resolved Pt is bradycardic with rate of 50 D/w RN 12/14/18 Pt seen and examined in the ICU Pt still sedated with Precedex INR 1.1 Hyponatremia has resolved PEGGY RN Reviewed chart 12/13/18 Pt seen and examined in the ICU Pt was combative and trying to get out of bed all morning. Pt was given Ativan, Haldol, Benadryl, Zyprexa and finally Fentanyl for patient safety. He was comfortably snoring. Discussed with son who was glad to see the pt finally asleep. PEGGY AVALOS Vitals/I&O Vitals/I&O: Vital Signs Date Time Temp Pulse Resp B/P (MAP) Pulse Ox O2 Delivery O2 Flow Rate FiO2 12/17/18 09:32 140 168/99 12/17/18 08:00 Nasal Cannula 2.0 12/17/18 06:00 17 100 12/17/18 04:00 98.0 98.0 I & O 12/16/18 12/16/18 12/17/18 15:00 23:00 07:00 Intake Total 3671.1 ml 529.1 ml Output Total 850 ml 635 ml 210 ml Balance -850 ml 3036.1 ml 319.1 ml Physical Exam Physical Exam: HEART: No history of palpitations, chest pain or shortness of breath on exertion. LUNGS: Denies cough, hemoptysis, wheezing or shortness of breath. GASTROINTESTINAL: Denies changes in appetite, nausea, vomiting, diarrhea or constipation. GENITOURINARY: No history of frequency, urgency, hesitancy or nocturia. NEUROLOGIC: Denies history of numbness, tingling, tremor or weakness. PSYCHIATRIC: No history of panic, anxiety or depression. ENDOCRINE: No history of heat or cold intolerance, polyuria or polydipsia. EXTREMITIES: He has a lot of bruising on his arms consistent with his chronic anticoagulation with Coumadin. General: Alert, Oriented X3, Cooperative, No acute distress Heart: Regular rate, Normal S1, Normal S2 Lungs: Wheezing Abdomen: Soft Extremities: No clubbing, No cyanosis, No edema Skin: No breakdown Labs Labs: Laboratory Tests Test 12/17/18 04:05 White Blood Count 4.0 x10^3/uL (4.0-11.0) Red Blood Count 4.24 x10^6/uL (4.30-5.70) Hemoglobin 11.0 g/dL (13.0-17.5) Hematocrit 33.7 % (39.0-53.0) Mean Corpuscular Volume 80 fL (79-100) Mean Corpuscular Hemoglobin 26 pg (25-35) Mean Corpuscular Hemoglobin Concent 33 g/dL (31-37) Red Cell Distribution Width 19.5 % (11.5-14.5) Platelet Count 295 x10^3/uL (140-400) Neutrophils (%) (Auto) 61 % (31-73) Lymphocytes (%) (Auto) 18 % (24-48) Monocytes (%) (Auto) 13 % (0-9) Eosinophils (%) (Auto) 6 % (0-3) Basophils (%) (Auto) 1 % (0-3) Neutrophils # (Auto) 2.5 x10^3/uL (1.8-7.7) Lymphocytes # (Auto) 0.7 x10^3/uL (1.0-4.8) Monocytes # (Auto) 0.5 x10^3/uL (0.0-1.1) Eosinophils # (Auto) 0.2 x10^3/uL (0.0-0.7) Basophils # (Auto) 0.1 x10^3/uL (0.0-0.2) Prothrombin Time 13.7 SEC (11.7-14.0) Prothromb Time International Ratio 1.1 (0.8-1.1) Sodium Level 143 mmol/L (136-145) Potassium Level 3.6 mmol/L (3.5-5.1) Chloride Level 107 mmol/L (98-107) Carbon Dioxide Level 25 mmol/L (21-32) Anion Gap 11 (6-14) Blood Urea Nitrogen 6 mg/dL (8-26) Creatinine 0.9 mg/dL (0.7-1.3) Estimated GFR (Cockcroft-Gault) 87.0 BUN/Creatinine Ratio 7 (6-20) Glucose Level 84 mg/dL (70-99) Calcium Level 8.4 mg/dL (8.5-10.1) Total Bilirubin 0.5 mg/dL (0.2-1.0) Aspartate Amino Transf (AST/SGOT) 16 U/L (15-37) Alanine Aminotransferase (ALT/SGPT) 13 U/L (16-63) Alkaline Phosphatase 52 U/L (46-116) Total Protein 6.1 g/dL (6.4-8.2) Albumin 2.8 g/dL (3.4-5.0) Albumin/Globulin Ratio 0.8 (1.0-1.7) Review of Systems Review of Systems: Unable to obtain due to sedation Assessment and Plan Assessmemt and Plan Problems Medical Problems: (1) Alcohol abuse Status: Acute (2) Closed head injury Status: Acute Assessment Hyponatremia EtOH withdrawal Plan ICU monitoring Consult neurology EtOH withdrawal protocol IV Precedex for sedation Home meds DVT prophylaxis Full code Comment Review of Relevant I have reviewed the following items robert (where applicable) has been applied. PAT SANABRIA III, DO Dec 17, 2018 10:28
[2018-12-17] MEDS: HALOPERIDOL LACTATE 5 MG/ML VIAL. IVP PRN ×3 (10:33→22:40)
--- NOTE | 2018-12-17 11:06 | NUR ---
tried again to allow pt off precedex even using Ativan Haldol and fent with IM zyprexa. PT stood pt to chair and rested in chair for 30 min then became very impulsive, restess and HR !$) which HR resolved on own after pt back to bed and settled down. Fent was give as pt reported Hx of back pain. Pt did take some breakfast with swallow intact. Peng to remain 1 more day. Will attempt to find a second IV site again. Son was here fro short time. Stated plan was to move pt to Grandparents house at some point as he has failed local rehab facility.
--- NOTE | 2018-12-17 11:15 | NUR ---
Pharmacy Warfarin Dosing Note S:Pharmacy consulted to assist with anticoagulation therapy started with target INR: 2 -3 O:SHAW OG is a 58 year old M with Mechanical Aortic Valve LABS: Last INR: 1.1 Last HGB: 11.0 Last HCT: 31.3 Last PLT: 273 Last dose of did not take given on 12/13/18 at Previous Regimen: 5MG DAILY Vitamin K given: Drug Interaction Changes: Ongoing Drug Interactions: A:INR of 1.1 is below desired range. Target range for this patient is: 2 -3 P: Warfarin dose: 7.5 mg Today at 1600 Bridge Therapy: Enoxaparin 1 mg/kg q12h Next INR due TOMORROW. Pharmacy anticoagulation service will continue to follow. GALINA CHEN Cristian, 12/17/18 1505
--- NOTE | 2018-12-17 13:42 | PDOC2 ---
NEUROLOGY CONSULT Date of Admission Date of Admission DATE: 12/17/18 TIME: 13:24 Reason for Consult Reason for Consult: IMPRESSION: Toxic encephalopathy. Metabolic encephalopathy. Alcohol intoxication, alcohol level 231 on 12/10/18. Confusion. Agitation. Hx of seizure? Afib. HTN. HLD. COPD. Peripheral neuropathy. RECOMMENDATIONS/PLAN: Vit B1 supplement. EEG. Lab: see orders. Brain MRI maybe considered. Treat medical diseases. HISTORY OF THE PRESENT ILLNESS: This is a 58-year-old male patient with history of above medical diseases and alcohol use/abuse presented to the emergency room on 12/10/18 with complaints of mechanical fall down 5 steps. He was intoxicated hit his head complained of neck pain and upper back pain and chest pain. He admitted that he had pain all over and he drank 9 beers that day. He he drinks regularly. Patient does take Coumadin for a Afib and valve disorder (?). Neurology was requested for consultation on 12/17/18 due to his prolonged mental status changes. Past Medical History Cardiovascular: AFIB, HTN, Other Pulmonary: COPD CENTRAL NERVOUS SYSTEM: Periperal neuropathy, Seizure GI: GERD Psych: Anxiety, Addictions, Depression Rheumatologic: Other Renal/: Benign prostatic enlarg. Past Surgical History No pertinent history Family History Hypertension ALLERGY: NKDA MEDICATIONS: Refer to [facility] SOCIAL HISTORY: He drinks alcohol heavily for many years. He uses marijuana. REVIEW OF SYSTEMS: Constitutional: No cachexia. Head: No current traumatic brain or head injury. Skin: No edema, or rash. Ear: No infection. Eyes: No vision loss or color blindness. Nose: No bleeding or purulent discharges. Hearing: No hearing decrease. Neck: No injury. Cardiac: AFib, HTN. Pulmonary: COPD. GI: GERD. Urinary/genital: No dysuria, incontinence, urinary retention. Endocrinologic: No cousin face, craniofacial dysmorphism, polydactyly. Skeletomuscular: No muscular atrophy, deformity. Neurological: see HP. Psychiatric: Alcohol and marijuana use/abuse. Otherwise, not [id number] review of systems. PHYSICAL EXAMINATION: General appearance is in subacute distress. HEENT: Normocephalic and nontraumatic. Eyes, nose, ears, and throat are unremarkable. Neck is supple. No lymphadenopathy. No crepitus. Cardiovascular: S1, S2, regular rate and rhythm. Pulmonary: Seemed clear to auscultation bilaterally. Abdomen: Bowel sounds are positive. Extremities: No rash, lesions, or edema. No restriction of range of motion NEUROLOGICAL EXAMINATION: Lethargic. Not oriented to time, place and person. PERRL. EOMI not elicited due to not follow commands. CN: no acute focal findings. Muscle tone: fluctuated. Muscle strength: Movements noted. DTR: 2- UE, 0-1 at knee. Plantar reflex: Neutral response bilaterally Gait: not examined in bed. Sensory exam: no abnormal findings. Not able to access cerebellar signs. F-T-N test not performed due to MS changes. Current Medications Current Medications Current Medications Fentanyl Citrate (Fentanyl 2ml Vial) 50 mcg 1X ONCE IV Last administered on 12/10/18at 20:03; Start 12/10/18 at 19:15; Stop 12/10/18 at 19:16; Status DC Iohexol (Omnipaque 300 Mg/ml) 75 ml 1X ONCE IV Last administered on 12/10/18at 19:43; Start 12/10/18 at 19:15; Stop 12/10/18 at 19:16; Status DC Sodium Chloride 1,000 ml @ 1,000 mls/hr 1X ONCE IV Last administered on 12/10/18at 19:45; Start 12/10/18 at 19:45; Stop 12/10/18 at 20:44; Status DC Morphine Sulfate (Morphine Sulfate) 2 mg PRN Q2HR PRN IV PAIN Last administered on 12/11/18at 12:03; Start 12/10/18 at 20:15; Stop 12/11/18 at 20:14; Status DC Sodium Chloride 1,000 ml @ 100 mls/hr Q10H IV Last administered on 12/11/18at 08:10; Start 12/10/18 at 20:07; Stop 12/11/18 at 12:21; Status DC Diphtheria/ Tetanus/Acell Pertussis (Boostrix) 0.5 ml ONCE ONCE VAX IM Last administered on 12/10/18at 21:07; Start 12/10/18 at 20:15; Stop 12/10/18 at 20:16; Status DC Ondansetron HCl (Zofran) 4 mg PRN Q6HRS PRN IV NAUSEA/VOMITING 1ST CHOICE Last administered on 12/12/18at 23:21; Start 12/11/18 at 05:30 Multivitamins (Thera M Plus) 1 tab DAILY PO Last administered on 12/12/18 08:14; Start 12/11/18 at 09:00; Stop 12/13/18 at 11:25; Status DC Folic Acid (Folic Acid) 1 mg DAILY PO Last administered on 12/12/18 08:14; Start 12/11/18 at 09:00; Stop 12/13/18 at 11:25; Status DC Chlordiazepoxide (Librium) 50 mg PRN Q1HR PRN PO For CIWA 8-14 2ND CHOICE Last administered on 12/12/18 22:26; Start 12/11/18 at 05:30 Chlordiazepoxide (Librium) 100 mg PRN Q1HR PRN PO For CIWA 15+ 2ND CHOICE Last administered on 12/13/18 01:11; Start 12/11/18 at 05:30 Lorazepam (Ativan) 4 mg PRN Q1HR PRN PO For CIWA 8-14 Last administered on 12/13/18 02:48; Start 12/11/18 at 05:30 Lorazepam (Ativan) 8 mg PRN Q1HR PRN PO For CIWA 15 or greater; Start 12/11/18 at 05:30 Lorazepam (Ativan Inj) 2 mg PRN Q1HR PRN IV For CIWA 8-14 Last administered on 12/17/18 10:34; Start 12/11/18 at 05:30 Lorazepam (Ativan Inj) 4 mg PRN Q1HR PRN IV For CIWA 15 or greater Last administered on 12/17/18 03:53; Start 12/11/18 at 05:30 Haloperidol Lactate (Haldol Inj) 5 mg PRN Q4HRS PRN IVP Hallucinatns,Confusn,Delirium Last administered on 12/17/18 10:33; Start 12/11/18 at 05:30 Diphenhydramine HCl (Benadryl) 25 mg PRN Q15MIN PRN IVP EPS symptoms 2'Haldol admin Last administered on 12/17/18 03:52; Start 12/11/18 at 05:30 Clonidine HCl (Catapres) 0.1 mg PRN Q1HR PRN PO SBP > 180 or DBP > 100, MRX3; Start 12/11/18 at 05:30 Sodium Chloride 1,000 ml @ 60 mls/hr [id number] IV Last administered on 12/17/18at 04:09; Start 12/11/18 at 13:00 Sodium Chloride 150 ml @ 50 mls/hr 1X ONCE IV Last administered on 12/11/18at 13:48; Start 12/11/18 at 13:00; Stop 12/11/18 at 15:59; Status DC Lisinopril (Prinivil) 20 mg DAILY PO Last administered on 12/17/18at 09:32; Start 12/11/18 at 14:00 Oxycodone/ Acetaminophen (Percocet 7.5/ 325) 1 tab PRN Q6HRS PRN PO PAIN Last administered on 12/15/18 05:52; Start 12/11/18 at 13:30 Calcium Carbonate/ Glycine (Oscal) 500 mg TIDAFTMEAL PO Last administered on 12/17/18at 09:36; Start 12/12/18 at 13:00 Ziprasidone (Geodon Im) 20 mg 1X ONCE IM ; Start 12/13/18 at 05:00; Stop 12/13/18 at 18:51; Status DC Lorazepam 100 mg/ Sodium Chloride 100 ml @ 2 mls/hr CONT PRN IV SEDATION Last administered on 12/13/18at 19:56; Start 12/13/18 at 07:00 Olanzapine (ZyPREXA IM) 10 mg PRN Q8HRS PRN IM AGITATION Last administered on 12/17/18at 07:34; Start 12/13/18 at 08:30 Olanzapine (ZyPREXA IM) 10 mg STK-MED ONCE IM ; Start 12/13/18 at 08:37; Stop 12/13/18 at 08:38; Status DC Fentanyl Citrate (Fentanyl 2ml Vial) 75 mcg 1X ONCE IV ; Start 12/13/18 at 09:45; Stop 12/13/18 at 19:20; Status DC Fentanyl Citrate (Fentanyl 2ml Vial) 100 mcg STK-MED ONCE .ROUTE ; Start 12/13/18 at 09:47; Stop 12/13/18 at 09:48; Status DC Fentanyl Citrate (Fentanyl 2ml Vial) 75 mcg PRN Q30MIN PRN IV MILD PAIN 1-3 Last administered on 12/17/18at 10:33; Start 12/13/18 at 10:00 Multivitamins 10 ml/Thiamine HCl 100 mg/Folic Acid 1 mg/Sodium Chloride 1,011.2 ml @ 100 mls/ hr DAILY IV Last administered on 12/17/18 09:34; Start 12/14/18 at 12:00; Stop 12/18/18 at 19:07 Enoxaparin Sodium (Lovenox 80mg Syringe) 80 mg Q12HR SQ Last administered on 12/17/18 07:34; Start 12/13/18 at 14:30 Warfarin Sodium (Coumadin Per Pharmacy) 1 each PRN DAILY PRN MC SEE COMMENTS Last administered on 12/17/18 11:11; Start 12/13/18 at 14:15 Warfarin Sodium (Coumadin) 7.5 mg 1X WARF ONCE PO ; Start 12/13/18 at 16:00; Stop 12/13/18 at 16:01; Status DC Nicotine (Nicoderm Cq 21mg) 1 patch DAILY TD Last administered on 12/17/18at 09:36; Start 12/14/18 at 09:00 Dexmedetomidine HCl 400 mcg/ Sodium Chloride 100 ml @ 0 mls/hr CONT PRN IV PER PROTOCOL Last administered on 12/17/18 03:52; Start 12/14/18 at 01:45 Sodium Chloride 500 ml @ 500 mls/hr 1X PRN PRN IV SEE COMMENTS; Start 12/14/18 at 01:45 Atropine Sulfate (ATROPINE 0.5mg SYRINGE) 0.5 mg PRN Q5MIN PRN IV SEE COMMENTS; Start 12/14/18 at 01:45 Nicotine (Nicoderm Cq 21mg) 1 patch STK-MED ONCE TD ; Start 12/14/18 at 01:57; Stop 12/14/18 at 01:57; Status DC Lorazepam (Ativan) 1 mg BID PO Last administered on 12/15/18at 09:18; Start 12/14/18 at 09:00 Warfarin Sodium (Coumadin) 5 mg DAILY16 PO ; Start 12/14/18 at 16:00; Stop 12/14/18 at 09:21; Status DC Warfarin Sodium (Coumadin) 7.5 mg 1X WARF ONCE PO ; Start 12/14/18 at 16:00; Stop 12/14/18 at 16:01; Status DC Enalaprilat (Vasotec Inj) 1.25 mg Q8HRS IVP Last administered on 12/17/18at 06:26; Start 12/14/18 at 15:00 Nicardipine HCl 50 mg/Sodium Chloride 250 ml @ 25 mls/hr CONT PRN IV SEE I/O RECORD Last administered on 12/16/18at 09:58; Start 12/14/18 at 17:45 Nicardipine HCl 50 mg/Sodium Chloride 250 ml @ 25 mls/hr CONT PRN IV SEE I/O RECORD; Start 12/14/18 at 18:00; Status UNV Warfarin Sodium (Coumadin) 7.5 mg 1X WARF ONCE PO ; Start 12/15/18 at 16:00; Stop 12/15/18 at 16:01; Status DC Warfarin Sodium (Coumadin - No Dose Today) 1 each 1X WARF ONCE MC ; Start 12/16/18 at 16:00; Stop 12/16/18 at 16:01; Status DC Warfarin Sodium (Coumadin) 7.5 mg 1X WARF ONCE PO ; Start 12/17/18 at 16:00; Stop 12/17/18 at 16:01 Active Scripts Active Reported Lorazepam 1 Mg Tablet 1 Tab PO BID Percocet 7.5-325 Mg Tablet (Oxycodone/Acetaminophen) 1 Each Tablet 1 Tab PO PRN Q6HRS PRN Coumadin (Warfarin Sodium) 5 Mg Tablet 1 Tab PO DAILY Lisinopril 20 Mg Tablet 1 Tab PO DAILY Allergies Allergies: Allergies Coded Allergies Type Severity Reaction Last Updated Verified No Known Drug Allergies 10/05/17 No ROS Review of System The patient denies any associated fevers, chills, headache, ear pain, rhinorrhea, sore throat, stiff neck, productive cough, chest pain, shortness of breath, back or flank pain, abdominal pain, nausea, vomiting, diarrhea, cons tipation, dysuria, rash, numbness, weakness, tingling, incontinence, difficulty ambulating, or diaphoresis. Physical Exam Physical Exam General: Well developed, well nourished, no acute distress, well appearing HEENT: Pupils equally round and reactive to light, EOMI, no discharge, normal conjunctiva Neck: Supple, no nuchal rigidity, no JVD, trachea midline, no tenderness Cardiac: RRR, no murmurs, no gallops, no rubs Chest/Lungs: CTAB, no wheeze, no rhonchi, no crackles Abdomen: soft, non-distended, no guarding, no peritoneal signs, non-tender Back: No tenderness Extremities: no edema, pulses intact, non-tender,capillary refill <3 sec bilateral upper and lower extremities, Neuro: Alert and oriented x 4, no focal deficits, normal speech Vitals Vitals: Vital Signs Date Time Temp Pulse Resp B/P (MAP) Pulse Ox O2 Delivery O2 Flow Rate FiO2 12/17/18 10:33 16 Nasal Cannula 2.0 12/17/18 09:32 140 168/99 12/17/18 09:00 100 12/17/18 08:00 98.3 98.3 Labs Labs Laboratory Tests Test 12/16/18 04:19 12/17/18 04:05 White Blood Count 4.5 x10^3/uL (4.0-11.0) 4.0 x10^3/uL (4.0-11.0) Red Blood Count 4.30 x10^6/uL (4.30-5.70) 4.24 x10^6/uL (4.30-5.70) Hemoglobin 11.2 g/dL (13.0-17.5) 11.0 g/dL (13.0-17.5) Hematocrit 34.1 % (39.0-53.0) 33.7 % (39.0-53.0) Mean Corpuscular Volume 79 fL (79-100) 80 fL (79-100) Mean Corpuscular Hemoglobin 26 pg (25-35) 26 pg (25-35) Mean Corpuscular Hemoglobin Concent 33 g/dL (31-37) 33 g/dL (31-37) Red Cell Distribution Width 19.6 % (11.5-14.5) 19.5 % (11.5-14.5) Platelet Count 301 x10^3/uL (140-400) 295 x10^3/uL (140-400) Neutrophils (%) (Auto) 67 % (31-73) 61 % (31-73) Lymphocytes (%) (Auto) 15 % (24-48) 18 % (24-48) Monocytes (%) (Auto) 10 % (0-9) 13 % (0-9) Eosinophils (%) (Auto) 6 % (0-3) 6 % (0-3) Basophils (%) (Auto) 1 % (0-3) 1 % (0-3) Neutrophils # (Auto) 3.0 x10^3/uL (1.8-7.7) 2.5 x10^3/uL (1.8-7.7) Lymphocytes # (Auto) 0.7 x10^3/uL (1.0-4.8) 0.7 x10^3/uL (1.0-4.8) Monocytes # (Auto) 0.5 x10^3/uL (0.0-1.1) 0.5 x10^3/uL (0.0-1.1) Eosinophils # (Auto) 0.3 x10^3/uL (0.0-0.7) 0.2 x10^3/uL (0.0-0.7) Basophils # (Auto) 0.1 x10^3/uL (0.0-0.2) 0.1 x10^3/uL (0.0-0.2) Prothrombin Time 13.1 SEC (11.7-14.0) 13.7 SEC (11.7-14.0) Prothromb Time International Ratio 1.0 (0.8-1.1) 1.1 (0.8-1.1) Sodium Level 140 mmol/L (136-145) 143 mmol/L (136-145) Potassium Level 3.7 mmol/L (3.5-5.1) 3.6 mmol/L (3.5-5.1) Chloride Level 105 mmol/L (98-107) 107 mmol/L (98-107) Carbon Dioxide Level 27 mmol/L (21-32) 25 mmol/L (21-32) Anion Gap 8 (6-14) 11 (6-14) Blood Urea Nitrogen 5 mg/dL (8-26) 6 mg/dL (8-26) Creatinine 0.8 mg/dL (0.7-1.3) 0.9 mg/dL (0.7-1.3) Estimated GFR (Cockcroft-Gault) 99.6 87.0 BUN/Creatinine Ratio 6 (6-20) 7 (6-20) Glucose Level 109 mg/dL (70-99) 84 mg/dL (70-99) Calcium Level 8.6 mg/dL (8.5-10.1) 8.4 mg/dL (8.5-10.1) Total Bilirubin 0.5 mg/dL (0.2-1.0) 0.5 mg/dL (0.2-1.0) Aspartate Amino Transf (AST/SGOT) 20 U/L (15-37) 16 U/L (15-37) Alanine Aminotransferase (ALT/SGPT) 16 U/L (16-63) 13 U/L (16-63) Alkaline Phosphatase 55 U/L (46-116) 52 U/L (46-116) Total Protein 6.4 g/dL (6.4-8.2) 6.1 g/dL (6.4-8.2) Albumin 2.9 g/dL (3.4-5.0) 2.8 g/dL (3.4-5.0) Albumin/Globulin Ratio 0.8 (1.0-1.7) 0.8 (1.0-1.7) Laboratory Tests Test 12/17/18 04:05 White Blood Count 4.0 x10^3/uL (4.0-11.0) Red Blood Count 4.24 x10^6/uL (4.30-5.70) Hemoglobin 11.0 g/dL (13.0-17.5) Hematocrit 33.7 % (39.0-53.0) Mean Corpuscular Volume 80 fL (79-100) Mean Corpuscular Hemoglobin 26 pg (25-35) Mean Corpuscular Hemoglobin Concent 33 g/dL (31-37) Red Cell Distribution Width 19.5 % (11.5-14.5) Platelet Count 295 x10^3/uL (140-400) Neutrophils (%) (Auto) 61 % (31-73) Lymphocytes (%) (Auto) 18 % (24-48) Monocytes (%) (Auto) 13 % (0-9) Eosinophils (%) (Auto) 6 % (0-3) Basophils (%) (Auto) 1 % (0-3) Neutrophils # (Auto) 2.5 x10^3/uL (1.8-7.7) Lymphocytes # (Auto) 0.7 x10^3/uL (1.0-4.8) Monocytes # (Auto) 0.5 x10^3/uL (0.0-1.1) Eosinophils # (Auto) 0.2 x10^3/uL (0.0-0.7) Basophils # (Auto) 0.1 x10^3/uL (0.0-0.2) Prothrombin Time 13.7 SEC (11.7-14.0) Prothromb Time International Ratio 1.1 (0.8-1.1) Sodium Level 143 mmol/L (136-145) Potassium Level 3.6 mmol/L (3.5-5.1) Chloride Level 107 mmol/L (98-107) Carbon Dioxide Level 25 mmol/L (21-32) Anion Gap 11 (6-14) Blood Urea Nitrogen 6 mg/dL (8-26) Creatinine 0.9 mg/dL (0.7-1.3) Estimated GFR (Cockcroft-Gault) 87.0 BUN/Creatinine Ratio 7 (6-20) Glucose Level 84 mg/dL (70-99) Calcium Level 8.4 mg/dL (8.5-10.1) Total Bilirubin 0.5 mg/dL (0.2-1.0) Aspartate Amino Transf (AST/SGOT) 16 U/L (15-37) Alanine Aminotransferase (ALT/SGPT) 13 U/L (16-63) Alkaline Phosphatase 52 U/L (46-116) Total Protein 6.1 g/dL (6.4-8.2) Albumin 2.8 g/dL (3.4-5.0) Albumin/Globulin Ratio 0.8 (1.0-1.7) JAMEL BONILLA MD Dec 17, 2018 13:42
--- NOTE | 2018-12-17 15:51 | RAD ---
MRI of the brain without contrast 12/17/2018 Clinical History: Prolonged mental status changes. Technique: Unenhanced T1-weighted sagittal and axial, T2-weighted axial and coronal and FLAIR, gradient echo and diffusion-weighted axial images of the brain were obtained. Findings: Comparison is made to patient's CT scan of the head dated 12/10/2018 along the patient's previous MRI of the brain dated 11/26/2012. Images from the study are degraded by patient motion. There is generalized parenchymal atrophy. Patchy, confluent and multiple small focal areas of increased signal intensity are seen within the periventricular and subcortical white matter of both cerebral hemispheres on the FLAIR and T2-weighted images consistent with areas of small vessel ischemic disease. An old area of lacunar infarction is seen involving the agnieszka just to the right of midline. This measures 8 mm in greatest diameter. No acute parenchymal abnormality is seen. No extra-axial fluid collection is seen. There is no MRI evidence of acute ischemia/infarction. Moderate to severe mucosal thickening is seen throughout the paranasal sinuses. There are moderate sized bilateral mastoid effusions. Normal flow voids are seen within the major vascular structures surrounding the brain parenchyma. Normal flow voids are seen within the major vascular structures surrounding the brain parenchyma. Impression: No acute parenchymal abnormality is seen. Electronically signed by: Wes Wright MD (12/17/2018 3:48 PM) [id number]
[2018-12-17] MEDS ORDERED: WARFARIN 7.5 MG TABLET. PO ONE (16:00)
--- NOTE | 2018-12-17 18:06 | NUR ---
Seen by Dr Mari then to MRI and sedation was needed(Precedex and ativan) MRI reported as neg. Pt more restful on Precedex with IM zyprexa given on more routine times. Still with hallucinations occ during sleep. 2nd IV started. Son here earlier HR and BP stable earlier this morning there was tachycardia 140 with activity then immediately down to normal when calm.. Fall monitoring in progress with Marcio
[2018-12-18] VITALS (17 sets, daily range): BP systolic 103–176; BP diastolic 54–107
[2018-12-18] MEDS: DEXMEDETOMIDINE 400 MCG in IV NORMAL SALINE 100ML 96 ML IV PRN (00:12)
[2018-12-18] MEDS: fentaNYL PF VIAL 100 MCG/2 ML VIAL IV PRN ×2 (00:59→06:52)
[2018-12-18] MEDS: OLANZapine IM 10 MG VIAL. IM PRN ×2 (01:02→09:00)
[2018-12-18 03:19] LABS: BASO % 0 % (0-3); EOS # 0.2 x10^3/uL (0.0-0.7); EOS % 4 % (0-3); HEMATOCRIT 34.6 % (39.0-53.0); HEMOGLOBIN 11.5 g/dL (13.0-17.5); LYMPH # 0.6 x10^3/uL (1.0-4.8); LYMPH % 12 % (24-48); MEAN CORPUSCULAR HEMOGLOBIN 27 pg (25-35); MEAN CORPUSCULAR HGB CONC 33 g/dL (31-37); MEAN CORPUSCULAR VOLUME 80 fL (79-100); MONO # 0.5 x10^3/uL (0.0-1.1); MONO % 10 % (0-9); NEUT # 3.9 x10^3/uL (1.8-7.7); NEUT % 74 % (31-73); PLATELET COUNT 283 x10^3/uL (140-400); RED BLOOD COUNT 4.32 x10^6/uL (4.30-5.70); WHITE BLOOD COUNT 5.2 x10^3/uL (4.0-11.0)
[2018-12-18 03:27] LABS: PROTHROMBIN TIME PATIENT 13.3 SEC (11.7-14.0)
[2018-12-18 03:34] LABS: ALBUMIN/GLOBULIN RATIO 0.9 (1.0-1.7); CREATININE 0.9 mg/dL (0.7-1.3); POTASSIUM 3.5 mmol/L (3.5-5.1); TOTAL BILIRUBIN 0.5 mg/dL (0.2-1.0); TOTAL PROTEIN 6.4 g/dL (6.4-8.2)
[2018-12-18] MEDS: diphenhydrAMINE 50 MG/ML VIAL IVP PRN (03:44)
[2018-12-18] MEDS: HALOPERIDOL LACTATE 5 MG/ML VIAL. IVP PRN (03:44)
[2018-12-18] MEDS: ENALAPRILAT 1.25 MG/ML VIAL. IVP SCH ×3 (06:28→22:00)
[2018-12-18] MEDS: LORazepam 1 MG TABLET PO SCH ×2 (08:55→21:46)
[2018-12-18] MEDS: MULTIVIT INFUSN,ADULT 4,VIT K 10 ML, THIAMINE INJ 100 MG, FOLIC ACID INJ 1 MG in IV NOR... IV SCH (08:55)
[2018-12-18] MEDS: NICOTINE 21MG PATCH. TD SCH (08:55)
[2018-12-18] MEDS: CALCIUM CARBONATE 500 MG TABLET PO SCH ×3 (08:56→18:08)
[2018-12-18] MEDS: LISINOPRIL 20 MG TABLET PO SCH (08:56)
[2018-12-18] MEDS: IV NORMAL SALINE 1000ML BAG 1,000 ML IV SCH (11:40)
--- NOTE | 2018-12-18 11:49 | PDOC ---
[employer] PROGRESS NOTE Chief Complaint Chief Complaint Fall ETOH withdrawal Toxic encephalopathy Altered mental status Tachycardia History of Present Illness History of Present Illness 12/18/18 Pt seen and examined in the ICU Pt is still reported to have altered mental status Was resting in chair when examined, was speaking incoherently PEGGY RN; Precedex was stopped for now Charts and labs reviewed HR was 133 on examination Low grade fever and tachycardia seen on exam 12/17/18 Pt seen and examined in ICU PT still sedated PEGGY RN that she tried to wean the patient off of Precedex but he continued to be combative so she had to continue the sedation meds Consulted neurology to make sure there isn't other pathology causing his mental status change Charts and labs reviewed NA 143 12/16/18 Pt seen and examined in the ICU Pt is sedated with IV Precedex PEGGY AVALOS Pt was combative in the morning Charts and labs reviewed Na: 140 12/15/18 Pt seen and examined in the ICU Pt's son was seen leaving the room Pt is still sedated with Precedex Pt requested pain medications Chart and labs reviewed Hyponatremia resolved Pt is bradycardic with rate of 50 D/w RN 12/14/18 Pt seen and examined in the ICU Pt still sedated with Precedex INR 1.1 Hyponatremia has resolved PEGGY AVALOS Reviewed chart 12/13/18 Pt seen and examined in the ICU Pt was combative and trying to get out of bed all morning. Pt was given Ativan, Haldol, Benadryl, Zyprexa and finally Fentanyl for patient safety. He was comfortably snoring. Discussed with son who was glad to see the pt finally asleep. PEGGY AVALOS Vitals/I&O Vitals/I&O: Vital Signs Date Time Temp Pulse Resp B/P (MAP) Pulse Ox O2 Delivery O2 Flow Rate FiO2 12/18/18 11:00 146 28 132/74 (93) 97 Nasal Cannula 2.0 12/18/18 08:00 100.2 100.2 I & O 12/17/18 12/17/18 12/18/18 14:59 22:59 06:59 Intake Total 300 ml 836 ml 451.2 ml Output Total 290 ml 790 ml 785 ml Balance 10 ml 46 ml -333.8 ml Physical Exam Physical Exam: HEART: No history of palpitations, chest pain or shortness of breath on exertion. LUNGS: Denies cough, hemoptysis, wheezing or shortness of breath. GASTROINTESTINAL: Denies changes in appetite, nausea, vomiting, diarrhea or constipation. GENITOURINARY: No history of frequency, urgency, hesitancy or nocturia. NEUROLOGIC: Denies history of numbness, tingling, tremor or weakness. PSYCHIATRIC: No history of panic, anxiety or depression. ENDOCRINE: No history of heat or cold intolerance, polyuria or polydipsia. EXTREMITIES: He has a lot of bruising on his arms consistent with his chronic anticoagulation with Coumadin. General: Alert, No acute distress Heart: Normal S1, Normal S2, Other (Tachycardia) Lungs: Wheezing Abdomen: Soft Extremities: No clubbing, No cyanosis, No edema Skin: No breakdown Labs Labs: Laboratory Tests Test 12/17/18 13:50 12/18/18 02:50 Ammonia < 10 mcmol/L (11-34) Vitamin B12 Level 1475 pg/mL (247-911) Thyroid Stimulating Hormone (TSH) 1.509 uIU/mL (0.358-3.74) White Blood Count 5.2 x10^3/uL (4.0-11.0) Red Blood Count 4.32 x10^6/uL (4.30-5.70) Hemoglobin 11.5 g/dL (13.0-17.5) Hematocrit 34.6 % (39.0-53.0) Mean Corpuscular Volume 80 fL (79-100) Mean Corpuscular Hemoglobin 27 pg (25-35) Mean Corpuscular Hemoglobin Concent 33 g/dL (31-37) Red Cell Distribution Width 20.0 % (11.5-14.5) Platelet Count 283 x10^3/uL (140-400) Neutrophils (%) (Auto) 74 % (31-73) Lymphocytes (%) (Auto) 12 % (24-48) Monocytes (%) (Auto) 10 % (0-9) Eosinophils (%) (Auto) 4 % (0-3) Basophils (%) (Auto) 0 % (0-3) Neutrophils # (Auto) 3.9 x10^3/uL (1.8-7.7) Lymphocytes # (Auto) 0.6 x10^3/uL (1.0-4.8) Monocytes # (Auto) 0.5 x10^3/uL (0.0-1.1) Eosinophils # (Auto) 0.2 x10^3/uL (0.0-0.7) Basophils # (Auto) 0.0 x10^3/uL (0.0-0.2) Prothrombin Time 13.3 SEC (11.7-14.0) Prothromb Time International Ratio 1.0 (0.8-1.1) Sodium Level 143 mmol/L (136-145) Potassium Level 3.5 mmol/L (3.5-5.1) Chloride Level 107 mmol/L (98-107) Carbon Dioxide Level 21 mmol/L (21-32) Anion Gap 15 (6-14) Blood Urea Nitrogen 7 mg/dL (8-26) Creatinine 0.9 mg/dL (0.7-1.3) Estimated GFR (Cockcroft-Gault) 87.0 BUN/Creatinine Ratio 8 (6-20) Glucose Level 80 mg/dL (70-99) Calcium Level 9.0 mg/dL (8.5-10.1) Total Bilirubin 0.5 mg/dL (0.2-1.0) Aspartate Amino Transf (AST/SGOT) 16 U/L (15-37) Alanine Aminotransferase (ALT/SGPT) 15 U/L (16-63) Alkaline Phosphatase 53 U/L (46-116) Total Protein 6.4 g/dL (6.4-8.2) Albumin 3.0 g/dL (3.4-5.0) Albumin/Globulin Ratio 0.9 (1.0-1.7) Review of Systems Review of Systems: No headache, no changes in vision No nausea, no vomiting Assessment and Plan Assessmemt and Plan Problems Medical Problems: (1) Alcohol abuse Status: Acute (2) Closed head injury Status: Acute Assessment Toxic encephalopathy Metabolic encephalopathy Fever Tachycardia Plan Consult cardiology Vitamin B1 supplementation Metoprolol PO BID Rocephin 1 g IV q24 for low grade fever Tylenol PRN Full code Comment Review of Relevant I have reviewed the following items robert (where applicable) has been applied. Medications: Current Medications Medications (Trade) Dose Ordered Sig/Siddharth Route PRN Reason Start Time Stop Time Status Last Admin Dose Admin Warfarin Sodium (Coumadin) 7.5 mg 1X WARF ONCE PO 12/17/18 16:00 12/17/18 16:01 DC 12/18/18 08:54 PAT SANABRIA III DO Dec 18, 2018 11:49
[2018-12-18] MEDS ORDERED: ACETAMINOPHEN/CODEINE 300/30MG TABLET. PO PRN (12:00)
[2018-12-18] MEDS: METOPROLOL TART IMMED RELEASE 25 MG TABLET. PO SCH ×2 (12:10→21:45)
[2018-12-18] MEDS: cefTRIAXone IV Push 1 GM VIAL. IVP SCH (12:11)
[2018-12-18] MEDS: chlordiazePOXIDE HCL 25 MG CAPSULE PO PRN ×3 (12:11→18:03)
--- NOTE | 2018-12-18 12:59 | PDOC ---
PROGRESS NOTES Assessment Assessment Toxic encephalopathy. Metabolic encephalopathy. Alcohol intoxication, alcohol level 231 on 12/10/18. Confusion. Agitation. Hx of seizure? Afib. HTN. HLD. COPD. Peripheral neuropathy. RECOMMENDATIONS/PLAN: Vit B1 supplement. Treat medical diseases. OT/PT. HISTORY OF THE PRESENT ILLNESS: This is a 58-year-old male patient with history of above medical diseases and alcohol use/abuse presented to the emergency room on 12/10/18 with complaints of mechanical fall down 5 steps. He was intoxicated hit his head complained of neck pain and upper back pain and chest pain. He admitted that he had pain all over and he drank 9 beers that day. He he drinks regularly. Patient does take Coumadin for a Afib and valve disorder (?). Neurology was requested for consultation on 12/17/18 due to his prolonged mental status changes. He is awake on 12/18/18. Past Medical History Cardiovascular: AFIB, HTN, Other Pulmonary: COPD CENTRAL NERVOUS SYSTEM: Periperal neuropathy, Seizure GI: GERD Psych: Anxiety, Addictions, Depression Rheumatologic: Other Renal/: Benign prostatic enlarg. Past Surgical History No pertinent history Family History Hypertension ALLERGY: NKDA MEDICATIONS: Refer to [facility] SOCIAL HISTORY: He drinks alcohol heavily for many years. He uses marijuana. REVIEW OF SYSTEMS: Constitutional: No cachexia. Head: No current traumatic brain or head injury. Skin: No edema, or rash. Ear: No infection. Eyes: No vision loss or color blindness. Nose: No bleeding or purulent discharges. Hearing: No hearing decrease. Neck: No injury. Cardiac: AFib, HTN. Pulmonary: COPD. GI: GERD. Urinary/genital: No dysuria, incontinence, urinary retention. Endocrinologic: No cousin face, craniofacial dysmorphism, polydactyly. Skeletomuscular: No muscular atrophy, deformity. Neurological: see HP. Psychiatric: Alcohol and marijuana use/abuse. Otherwise, not [id number] review of systems. PHYSICAL EXAMINATION: General appearance is in subacute distress. HEENT: Normocephalic and nontraumatic. Eyes, nose, ears, and throat are unremarkable. Neck is supple. No lymphadenopathy. No crepitus. Cardiovascular: S1, S2, regular rate and rhythm. Pulmonary: Seemed clear to auscultation bilaterally. Abdomen: Bowel sounds are positive. Extremities: No rash, lesions, or edema. No restriction of range of motion NEUROLOGICAL EXAMINATION: Awake. Sitting in chair. Not fully oriented to time, place and person. PERRL. EOMI. CN: no acute focal findings. Muscle tone: WNL. Muscle strength: 4 DTR: 2- UE, 0-1 at knee. Plantar reflex: Neutral response bilaterally Gait: not examined in chair. Sensory exam: no abnormal findings. No cerebellar signs elicited. F-T-N test fine. Objective Objective Vital Signs Date Time Temp Pulse Resp B/P (MAP) Pulse Ox O2 Delivery O2 Flow Rate FiO2 12/18/18 12:10 129 175/83 12/18/18 12:00 98.7 22 98 Nasal Cannula 2.0 98.7 Intake and Output 12/18/18 07:00 Intake Total 1587.2 ml Output Total 1965 ml Balance -377.8 ml Intake Oral 200 ml IV Total 1387.2 ml Output Urine Total 1965 ml Vitals Signs Vitals VS - Last 72 Hours, by Label Date Time Temp Pulse Resp B/P (MAP) Pulse Ox O2 Delivery O2 Flow Rate FiO2 12/18/18 12:10 129 175/83 12/18/18 12:00 98.7 113 22 176/83 (114) 98 Nasal Cannula 2.0 98.7 12/18/18 12:00 Nasal Cannula 2.0 12/18/18 11:00 146 28 132/74 (93) 97 Nasal Cannula 2.0 12/18/18 10:00 116 26 129/69 (89) 97 Nasal Cannula 2.0 12/18/18 09:00 116 26 103/56 (72) 97 Nasal Cannula 2.0 12/18/18 08:56 114 104/54 12/18/18 08:00 100.2 123 26 104/54 (71) 96 Nasal Cannula 2.0 100.2 12/18/18 08:00 Nasal Cannula 2.0 12/18/18 07:35 27 96 Nasal Cannula 2.0 12/18/18 07:00 120 24 121/55 (77) 96 Nasal Cannula 2.0 12/18/18 06:52 96 Nasal Cannula 2.0 12/18/18 06:28 112 146/74 12/18/18 06:00 112 18 146/74 (98) 98 Nasal Cannula 2.0 12/18/18 05:00 89 32 144/77 (99) 99 Nasal Cannula 2.0 12/18/18 04:00 99.3 122 30 164/70 (101) 98 Nasal Cannula 2.0 99.3 12/18/18 03:00 122 28 155/69 (97) 98 Nasal Cannula 2.0 12/18/18 02:00 91 28 164/89 (114) 98 Nasal Cannula 2.0 12/18/18 01:29 30 98 Nasal Cannula 2.0 12/18/18 01:00 69 24 169/107 (127) 99 Nasal Cannula 2.0 12/18/18 00:59 32 98 Nasal Cannula 2.0 12/18/18 00:01 97.7 63 36 162/95 (117) 98 Nasal Cannula 2.0 97.7 12/17/18 23:59 Nasal Cannula 2.0 12/17/18 23:00 57 36 157/99 (118) Nasal Cannula 2.0 12/17/18 22:38 58 168/109 12/17/18 22:00 58 24 168/109 (128) Nasal Cannula 2.0 12/17/18 21:00 57 22 162/91 (114) Nasal Cannula 2.0 12/17/18 20:00 Nasal Cannula 2.0 12/17/18 20:00 97.5 67 28 157/90 (112) Nasal Cannula 2.0 97.5 12/17/18 19:00 56 26 169/84 (112) Nasal Cannula 2.0 12/17/18 18:00 56 16 165/83 (110) Nasal Cannula 2.0 12/17/18 17:01 60 161/90 12/17/18 17:00 98.5 56 16 160/90 (113) 100 Nasal Cannula 2.0 98.5 12/17/18 16:17 16 Nasal Cannula 2.0 12/17/18 16:00 54 16 Nasal Cannula 2.0 12/17/18 16:00 Nasal Cannula 2.0 12/17/18 15:47 16 96 Room Air 12/17/18 15:00 58 16 100 Nasal Cannula 2.0 12/17/18 14:00 60 16 152/68 (96) Nasal Cannula 2.0 12/17/18 13:00 62 16 163/83 (109) Nasal Cannula 2.0 12/17/18 12:00 98.2 64 16 164/90 (114) 100 Nasal Cannula 2.0 98.2 12/17/18 12:00 Nasal Cannula 2.0 12/17/18 11:03 16 Nasal Cannula 2.0 12/17/18 11:00 84 16 149/68 (95) Nasal Cannula 2.0 12/17/18 10:33 16 Nasal Cannula 2.0 12/17/18 10:00 76 16 150/68 (95) Nasal Cannula 2.0 12/17/18 09:32 140 168/99 12/17/18 09:00 64 16 168/99 (122) 100 Nasal Cannula 2.0 12/17/18 08:00 98.3 58 16 168/74 (105) Nasal Cannula 2.0 98.3 12/17/18 08:00 Nasal Cannula 2.0 12/17/18 07:00 62 16 169/82 (111) Nasal Cannula 2.0 Laboratory Laboratory Laboratory Tests Test 12/17/18 13:50 12/18/18 02:50 Ammonia < 10 mcmol/L (11-34) Vitamin B12 Level 1475 pg/mL (247-911) Thyroid Stimulating Hormone (TSH) 1.509 uIU/mL (0.358-3.74) White Blood Count 5.2 x10^3/uL (4.0-11.0) Red Blood Count 4.32 x10^6/uL (4.30-5.70) Hemoglobin 11.5 g/dL (13.0-17.5) Hematocrit 34.6 % (39.0-53.0) Mean Corpuscular Volume 80 fL (79-100) Mean Corpuscular Hemoglobin 27 pg (25-35) Mean Corpuscular Hemoglobin Concent 33 g/dL (31-37) Red Cell Distribution Width 20.0 % (11.5-14.5) Platelet Count 283 x10^3/uL (140-400) Neutrophils (%) (Auto) 74 % (31-73) Lymphocytes (%) (Auto) 12 % (24-48) Monocytes (%) (Auto) 10 % (0-9) Eosinophils (%) (Auto) 4 % (0-3) Basophils (%) (Auto) 0 % (0-3) Neutrophils # (Auto) 3.9 x10^3/uL (1.8-7.7) Lymphocytes # (Auto) 0.6 x10^3/uL (1.0-4.8) Monocytes # (Auto) 0.5 x10^3/uL (0.0-1.1) Eosinophils # (Auto) 0.2 x10^3/uL (0.0-0.7) Basophils # (Auto) 0.0 x10^3/uL (0.0-0.2) Prothrombin Time 13.3 SEC (11.7-14.0) Prothromb Time International Ratio 1.0 (0.8-1.1) Sodium Level 143 mmol/L (136-145) Potassium Level 3.5 mmol/L (3.5-5.1) Chloride Level 107 mmol/L (98-107) Carbon Dioxide Level 21 mmol/L (21-32) Anion Gap 15 (6-14) Blood Urea Nitrogen 7 mg/dL (8-26) Creatinine 0.9 mg/dL (0.7-1.3) Estimated GFR (Cockcroft-Gault) 87.0 BUN/Creatinine Ratio 8 (6-20) Glucose Level 80 mg/dL (70-99) Calcium Level 9.0 mg/dL (8.5-10.1) Total Bilirubin 0.5 mg/dL (0.2-1.0) Aspartate Amino Transf (AST/SGOT) 16 U/L (15-37) Alanine Aminotransferase (ALT/SGPT) 15 U/L (16-63) Alkaline Phosphatase 53 U/L (46-116) Total Protein 6.4 g/dL (6.4-8.2) Albumin 3.0 g/dL (3.4-5.0) Albumin/Globulin Ratio 0.9 (1.0-1.7) Medication Medications Current Medications Acetaminophen (Tylenol) 650 mg PRN Q6HRS PRN PO FEVER; Start 12/18/18 at 13:00; Status UNV Acetaminophen/ Codeine Phosphate (Tylenol #3) 1 tab PRN Q6HRS PRN PO PAIN MILD TO MOD; Start 12/18/18 at 12:00; Stop 12/18/18 at 12:55; Status DC Ceftriaxone Sodium (Rocephin) 1 gm Q24H IVP Last administered on 12/18/18at 12:11; Start 12/18/18 at 12:30 Lactobacillus Rhamnosus (Culturelle) 1 cap BID PO ; Start 12/18/18 at 21:00 Metoprolol Tartrate (Lopressor) 25 mg BID PO Last administered on 12/18/18at 12:10; Start 12/18/18 at 12:30 Warfarin Sodium (Coumadin) 7.5 mg 1X WARF ONCE PO Last administered on 12/18/18at 08:54; Start 12/17/18 at 16:00; Stop 12/17/18 at 16:01; Status DC Comment Review of Relevant I have reviewed the following items robert (where applicable) has been applied. JAMEL BONILLA MD Dec 18, 2018 12:59
--- NOTE | 2018-12-18 15:55 | NUR ---
SS following up with discharge planning. Pt is currently requiring oxygen. PT/OT recommending acute rehabilitation at this time. Pt is currently off precedex and no mitts. SS will continue to follow for discharge planning.
[2018-12-18] MEDS ORDERED: WARFARIN 7.5 MG TABLET. PO ONE (16:00)
--- NOTE | 2018-12-18 16:15 | NUR ---
Pharmacy Warfarin Dosing Note S:Pharmacy consulted to assist with anticoagulation therapy started with target INR: 2 -3 O:SHAW OG is a 58 year old M with Mechanical Aortic Valve LABS: Last INR: 1.0 Last HGB: 11.0 Last HCT: 31.3 Last PLT: 273 Last dose of 7.5 mg given on 12/17/18 at 1700 Previous Regimen: 5MG DAILY Vitamin K given: Drug Interaction Changes: Ongoing Drug Interactions: A:INR of 1.0 is below desired range. Target range for this patient is: 2 -3 P: Warfarin dose: 7.5 mg Today at 1600 Bridge Therapy: Enoxaparin 1 mg/kg q12h Next INR due IN AM Pharmacy anticoagulation service will continue to follow. BERNY NGUYỄN Cristian, 12/18/18 1952
[2018-12-18] MEDS: oxyCODONE/APAP 7.5/325 1 TAB TABLET PO PRN (18:04)
--- NOTE | 2018-12-18 18:55 | NUR ---
Report received from ROBBIE Craven in ICU. Pt arrived on unit at approx 1630. Pt given call light and bed alarm set. Pt confused and anxious, ativan given. Will continue to monitor this pt.
--- NOTE | 2018-12-18 19:24 | EEG ---
DATE OF SERVICE: 12/18/2018 EEG NUMBER: [id number] OBJECTIVE: This is a 58-year-old male patient with history of prolonged mental status changes after alcohol intoxication and withdrawal. EEG was requested to evaluate cerebral activity and help rule out subclinical seizures. METHODS: Twenty electrodes were applied according to the international 10-20 electrode placement system. EKG monitoring, hyperventilation, intermittent photic stimulation, monopolar and bipolar montages are routinely utilized. The record was obtained on a digital system with video monitoring. FINDINGS: 1. Background: The patient was recorded in the awake, drowsy, and sleep states. The overall background amplitude is 10-20 microvolts. A posterior dominant rhythm of 8-10 Hz is observed. Fast activity in the beta frequency is also noted. 2. Abnormalities: No specific epileptiform discharge or electrographic seizure is seen. No focal or diffuse slowing. 3. Activation: Hyperventilation was not performed because the patient did not follow the commands. Intermittent photic stimulation was performed with photic driving. No specific epileptiform discharge or electrographic-seizure induced. IMPRESSION: This EEG is a borderline study for the awake, drowsy, and sleep states. No focal, lateralizing, specific epileptiform discharge or electrographic seizure is seen. JAMEL BONILLA MD DR: EULALIO/juanita JOB#: [id number] / [id number] USHA
[2018-12-18] MEDS: LACTOBACILLUS RHAMNOSUS GG 1 CAPSULE. PO SCH (21:45)
[2018-12-19] MEDS: OLANZapine IM 10 MG VIAL. IM PRN (00:05)
[2018-12-19] MEDS: HALOPERIDOL LACTATE 5 MG/ML VIAL. IVP PRN ×2 (02:06→06:04)
[2018-12-19] MEDS: IV NORMAL SALINE 1000ML BAG 1,000 ML IV SCH ×2 (02:09→16:13)
[2018-12-19 03:45] VITALS: BP 165/92
[2018-12-19] MEDS: ENALAPRILAT 1.25 MG/ML VIAL. IVP SCH ×3 (05:19→21:49)
[2018-12-19] MEDS: fentaNYL PF VIAL 100 MCG/2 ML VIAL IV PRN (05:20)
[2018-12-19] MEDS: oxyCODONE/APAP 7.5/325 1 TAB TABLET PO PRN (06:19)
[2018-12-19 07:07] VITALS: BP 170/93
[2018-12-19] MEDS ORDERED: IPRATRPIUM/ALBUTEROL 0.5/2.5MG 3 ML NEBU. NEB ONE (07:15)
[2018-12-19] MEDS ORDERED: ZIPRASIDONE IM 20 MG VIAL. IM ONE (07:15)
[2018-12-19 07:43] LABS: PROTHROMBIN TIME PATIENT 15.6 SEC (11.7-14.0)
[2018-12-19 07:46] LABS: ALBUMIN 3.1 g/dL (3.4-5.0); ALBUMIN/GLOBULIN RATIO 0.9 (1.0-1.7); CALCIUM 8.5 mg/dL (8.5-10.1); CREATININE 0.9 mg/dL (0.7-1.3); TOTAL BILIRUBIN 0.3 mg/dL (0.2-1.0); TOTAL PROTEIN 6.4 g/dL (6.4-8.2)
[2018-12-19] MEDS: LORazepam 1 MG TABLET PO SCH ×2 (08:00→21:00)
[2018-12-19] MEDS: LISINOPRIL 20 MG TABLET PO SCH (08:00)
[2018-12-19] MEDS: CALCIUM CARBONATE 500 MG TABLET PO SCH ×3 (08:00→17:22)
[2018-12-19] MEDS: LACTOBACILLUS RHAMNOSUS GG 1 CAPSULE. PO SCH ×2 (08:00→21:00)
[2018-12-19] MEDS: METOPROLOL TART IMMED RELEASE 25 MG TABLET. PO SCH ×2 (08:01→21:00)
[2018-12-19] MEDS: NICOTINE 21MG PATCH. TD SCH (08:03)
--- NOTE | 2018-12-19 08:27 | PDOC ---
PROGRESS NOTES Chief Complaint Chief Complaint Fall ETOH withdrawal Toxic encephalopathy Altered mental status Tachycardia History of Present Illness History of Present Illness 12/19/18 Pt seen and examined bedside Pt is still reported to have altered mental status Was resting in chair PEGGY RN; Precedex was stopped Charts and labs reviewed replace k 26 min pt exam, chart review, > 50% of time spent with exam, chart review, pt c are coordination 12/17/18 Pt seen and examined in ICU PT still sedated PEGGY RN that she tried to wean the patient off of Precedex but he continued to be combative so she had to continue the sedation meds Consulted neurology to make sure there isn't other pathology causing his mental status change Charts and labs reviewed NA 143 12/16/18 Pt seen and examined in the ICU Pt is sedated with IV Precedex PEGGY RN Pt was combative in the morning Charts and labs reviewed Na: 140 12/15/18 Pt seen and examined in the ICU Pt's son was seen leaving the room Pt is still sedated with Precedex Pt requested pain medications Chart and labs reviewed Hyponatremia resolved Pt is bradycardic with rate of 50 D/w RN 12/14/18 Pt seen and examined in the ICU Pt still sedated with Precedex INR 1.1 Hyponatremia has resolved PEGGY RN Reviewed chart 12/13/18 Pt seen and examined in the ICU Pt was combative and trying to get out of bed all morning. Pt was given Ativan, Haldol, Benadryl, Zyprexa and finally Fentanyl for patient safety. He was comfortably snoring. Discussed with son who was glad to see the pt finally asleep. PEGGY RN Vitals Vitals Vital Signs Date Time Temp Pulse Resp B/P (MAP) Pulse Ox O2 Delivery O2 Flow Rate FiO2 12/19/18 08:21 96 Room Air 12/19/18 08:01 101 170/93 12/19/18 07:07 26 12/19/18 03:45 98.9 98.9 12/18/18 15:00 2.0 Physical Exam Physical Exam HEART: No history of palpitations, chest pain or shortness of breath on exertion. LUNGS: Denies cough, hemoptysis, wheezing or shortness of breath. GASTROINTESTINAL: Denies changes in appetite, nausea, vomiting, diarrhea or constipation. GENITOURINARY: No history of frequency, urgency, hesitancy or nocturia. NEUROLOGIC: Denies history of numbness, tingling, tremor or weakness. PSYCHIATRIC: No history of panic, anxiety or depression. ENDOCRINE: No history of heat or cold intolerance, polyuria or polydipsia. EXTREMITIES: He has a lot of bruising on his arms consistent with his chronic anticoagulation with Coumadin. General: Alert, Cooperative, No acute distress Heart: Regular rate, Normal S1, Normal S2, Other (Tachycardia) Lungs: Wheezing Abdomen: Normal bowel sounds, Soft Extremities: No clubbing, No cyanosis, No edema Skin: No breakdown Labs LABS MRI of the brain without contrast 12/17/2018 Clinical History: Prolonged mental status changes. Technique: Unenhanced T1-weighted sagittal and axial, T2-weighted axial and coronal and FLAIR, gradient echo and diffusion-weighted axial images of the brain were obtained. Findings: Comparison is made to patient's CT scan of the head dated 12/10/2018 along the patient's previous MRI of the brain dated 11/26/2012. Images from the study are degraded by patient motion. There is generalized parenchymal atrophy. Patchy, confluent and multiple small focal areas of increased signal intensity are seen within the periventricular and subcortical white matter of both cerebral hemispheres on the FLAIR and T2-weighted images consistent with areas of small vessel ischemic disease. An old area of lacunar infarction is seen involving the agnieszka just to the right of midline. This measures 8 mm in greatest diameter. No acute parenchymal abnormality is seen. No extra-axial fluid collection is seen. There is no MRI evidence of acute ischemia/infarction. Moderate to severe mucosal thickening is seen throughout the paranasal sinuses. There are moderate sized bilateral mastoid effusions. Normal flow voids are seen within the major vascular structures surrounding the brain parenchyma. Normal flow voids are seen within the major vascular structures surrounding the brain parenchyma. Impression: No acute parenchymal abnormality is seen. Electronically signed by: Wes Wright MD (12/17/2018 3:48 PM) [id number] Laboratory Tests Test 12/19/18 05:45 Prothrombin Time 15.6 SEC (11.7-14.0) Prothromb Time International Ratio 1.3 (0.8-1.1) Sodium Level 146 mmol/L (136-145) Potassium Level 3.0 mmol/L (3.5-5.1) Chloride Level 110 mmol/L (98-107) Carbon Dioxide Level 25 mmol/L (21-32) Anion Gap 11 (6-14) Blood Urea Nitrogen 5 mg/dL (8-26) Creatinine 0.9 mg/dL (0.7-1.3) Estimated GFR (Cockcroft-Gault) 87.0 BUN/Creatinine Ratio 6 (6-20) Glucose Level 91 mg/dL (70-99) Calcium Level 8.5 mg/dL (8.5-10.1) Total Bilirubin 0.3 mg/dL (0.2-1.0) Aspartate Amino Transf (AST/SGOT) 24 U/L (15-37) Alanine Aminotransferase (ALT/SGPT) 17 U/L (16-63) Alkaline Phosphatase 44 U/L (46-116) Total Protein 6.4 g/dL (6.4-8.2) Albumin 3.1 g/dL (3.4-5.0) Albumin/Globulin Ratio 0.9 (1.0-1.7) Assessment and Plan Assessmemt and Plan Problems Medical Problems: (1) Alcohol abuse Status: Acute (2) Closed head injury Status: Acute Comment Review of Relevant I have reviewed the following items robert (where applicable) has been applied. Labs Laboratory Tests Test 12/17/18 13:50 12/18/18 02:50 12/19/18 05:45 Ammonia < 10 mcmol/L (11-34) Vitamin B12 Level 1475 pg/mL (247-911) Thyroid Stimulating Hormone (TSH) 1.509 uIU/mL (0.358-3.74) White Blood Count 5.2 x10^3/uL (4.0-11.0) Red Blood Count 4.32 x10^6/uL (4.30-5.70) Hemoglobin 11.5 g/dL (13.0-17.5) Hematocrit 34.6 % (39.0-53.0) Mean Corpuscular Volume 80 fL (79-100) Mean Corpuscular Hemoglobin 27 pg (25-35) Mean Corpuscular Hemoglobin Concent 33 g/dL (31-37) Red Cell Distribution Width 20.0 % (11.5-14.5) Platelet Count 283 x10^3/uL (140-400) Neutrophils (%) (Auto) 74 % (31-73) Lymphocytes (%) (Auto) 12 % (24-48) Monocytes (%) (Auto) 10 % (0-9) Eosinophils (%) (Auto) 4 % (0-3) Basophils (%) (Auto) 0 % (0-3) Neutrophils # (Auto) 3.9 x10^3/uL (1.8-7.7) Lymphocytes # (Auto) 0.6 x10^3/uL (1.0-4.8) Monocytes # (Auto) 0.5 x10^3/uL (0.0-1.1) Eosinophils # (Auto) 0.2 x10^3/uL (0.0-0.7) Basophils # (Auto) 0.0 x10^3/uL (0.0-0.2) Prothrombin Time 13.3 SEC (11.7-14.0) 15.6 SEC (11.7-14.0) Prothromb Time International Ratio 1.0 (0.8-1.1) 1.3 (0.8-1.1) Sodium Level 143 mmol/L (136-145) 146 mmol/L (136-145) Potassium Level 3.5 mmol/L (3.5-5.1) 3.0 mmol/L (3.5-5.1) Chloride Level 107 mmol/L (98-107) 110 mmol/L (98-107) Carbon Dioxide Level 21 mmol/L (21-32) 25 mmol/L (21-32) Anion Gap 15 (6-14) 11 (6-14) Blood Urea Nitrogen 7 mg/dL (8-26) 5 mg/dL (8-26) Creatinine 0.9 mg/dL (0.7-1.3) 0.9 mg/dL (0.7-1.3) Estimated GFR (Cockcroft-Gault) 87.0 87.0 BUN/Creatinine Ratio 8 (6-20) 6 (6-20) Glucose Level 80 mg/dL (70-99) 91 mg/dL (70-99) Calcium Level 9.0 mg/dL (8.5-10.1) 8.5 mg/dL (8.5-10.1) Total Bilirubin 0.5 mg/dL (0.2-1.0) 0.3 mg/dL (0.2-1.0) Aspartate Amino Transf (AST/SGOT) 16 U/L (15-37) 24 U/L (15-37) Alanine Aminotransferase (ALT/SGPT) 15 U/L (16-63) 17 U/L (16-63) Alkaline Phosphatase 53 U/L (46-116) 44 U/L (46-116) Total Protein 6.4 g/dL (6.4-8.2) 6.4 g/dL (6.4-8.2) Albumin 3.0 g/dL (3.4-5.0) 3.1 g/dL (3.4-5.0) Albumin/Globulin Ratio 0.9 (1.0-1.7) 0.9 (1.0-1.7) Laboratory Tests Test 12/19/18 05:45 Prothrombin Time 15.6 SEC (11.7-14.0) Prothromb Time International Ratio 1.3 (0.8-1.1) Sodium Level 146 mmol/L (136-145) Potassium Level 3.0 mmol/L (3.5-5.1) Chloride Level 110 mmol/L (98-107) Carbon Dioxide Level 25 mmol/L (21-32) Anion Gap 11 (6-14) Blood Urea Nitrogen 5 mg/dL (8-26) Creatinine 0.9 mg/dL (0.7-1.3) Estimated GFR (Cockcroft-Gault) 87.0 BUN/Creatinine Ratio 6 (6-20) Glucose Level 91 mg/dL (70-99) Calcium Level 8.5 mg/dL (8.5-10.1) Total Bilirubin 0.3 mg/dL (0.2-1.0) Aspartate Amino Transf (AST/SGOT) 24 U/L (15-37) Alanine Aminotransferase (ALT/SGPT) 17 U/L (16-63) Alkaline Phosphatase 44 U/L (46-116) Total Protein 6.4 g/dL (6.4-8.2) Albumin 3.1 g/dL (3.4-5.0) Albumin/Globulin Ratio 0.9 (1.0-1.7) Medications Current Medications Fentanyl Citrate (Fentanyl 2ml Vial) 50 mcg 1X ONCE IV Last administered on 12/10/18at 20:03; Start 12/10/18 at 19:15; Stop 12/10/18 at 19:16; Status DC Iohexol (Omnipaque 300 Mg/ml) 75 ml 1X ONCE IV Last administered on 12/10/18at 19:43; Start 12/10/18 at 19:15; Stop 12/10/18 at 19:16; Status DC Sodium Chloride 1,000 ml @ 1,000 mls/hr 1X ONCE IV Last administered on 12/10/18at 19:45; Start 12/10/18 at 19:45; Stop 12/10/18 at 20:44; Status DC Morphine Sulfate (Morphine Sulfate) 2 mg PRN Q2HR PRN IV PAIN Last administered on 12/11/18at 12:03; Start 12/10/18 at 20:15; Stop 12/11/18 at 20:14; Status DC Sodium Chloride 1,000 ml @ 100 mls/hr Q10H IV Last administered on 12/11/18at 08:10; Start 12/10/18 at 20:07; Stop 12/11/18 at 12:21; Status DC Diphtheria/ Tetanus/Acell Pertussis (Boostrix) 0.5 ml ONCE ONCE VAX IM Last administered on 12/10/18at 21:07; Start 12/10/18 at 20:15; Stop 12/10/18 at 20:16; Status DC Ondansetron HCl (Zofran) 4 mg PRN Q6HRS PRN IV NAUSEA/VOMITING 1ST CHOICE Last administered on 12/12/18at 23:21; Start 12/11/18 at 05:30 Multivitamins (Thera M Plus) 1 tab DAILY PO Last administered on 12/12/18at 08:14; Start 12/11/18 at 09:00; Stop 12/13/18 at 11:25; Status DC Folic Acid (Folic Acid) 1 mg DAILY PO Last administered on 12/12/18at 08:14; Start 12/11/18 at 09:00; Stop 12/13/18 at 11:25; Status DC Chlordiazepoxide (Librium) 50 mg PRN Q1HR PRN PO For CIWA 8-14 2ND CHOICE Last administered on 12/18/18at 18:03; Start 12/11/18 at 05:30 Chlordiazepoxide (Librium) 100 mg PRN Q1HR PRN PO For CIWA 15+ 2ND CHOICE Last administered on 12/13/18 01:11; Start 12/11/18 at 05:30 Lorazepam (Ativan) 4 mg PRN Q1HR PRN PO For CIWA 8-14 Last administered on 12/13/18 02:48; Start 12/11/18 at 05:30 Lorazepam (Ativan) 8 mg PRN Q1HR PRN PO For CIWA 15 or greater; Start 12/11/18 at 05:30 Lorazepam (Ativan Inj) 2 mg PRN Q1HR PRN IV For CIWA 8-14 Last administered on 12/18/18 17:22; Start 12/11/18 at 05:30 Lorazepam (Ativan Inj) 4 mg PRN Q1HR PRN IV For CIWA 15 or greater Last administered on 12/19/18 05:19; Start 12/11/18 at 05:30 Haloperidol Lactate (Haldol Inj) 5 mg PRN Q4HRS PRN IVP Hallucinatns,Confusn,Delirium Last administered on 12/19/18 06:04; Start 12/11/18 at 05:30 Diphenhydramine HCl (Benadryl) 25 mg PRN Q15MIN PRN IVP EPS symptoms 2'Haldol admin Last administered on 12/18/18 03:44; Start 12/11/18 at 05:30 Clonidine HCl (Catapres) 0.1 mg PRN Q1HR PRN PO SBP > 180 or DBP > 100, MRX3; Start 12/11/18 at 05:30 Sodium Chloride 1,000 ml @ 60 mls/hr [id number] IV Last administered on 12/19/18 02:09; Start 12/11/18 at 13:00 Sodium Chloride 150 ml @ 50 mls/hr 1X ONCE IV Last administered on 12/11/18 13:48; Start 12/11/18 at 13:00; Stop 12/11/18 at 15:59; Status DC Lisinopril (Prinivil) 20 mg DAILY PO Last administered on 12/19/18 08:00; Start 12/11/18 at 14:00 Oxycodone/ Acetaminophen (Percocet 7.5/ 325) 1 tab PRN Q6HRS PRN PO PAIN SEVERE Last administered on 12/19/18 06:19; Start 12/11/18 at 13:30 Calcium Carbonate/ Glycine (Oscal) 500 mg TIDAFTMEAL PO Last administered on 12/19/18 08:00; Start 12/12/18 at 13:00 Ziprasidone (Geodon Im) 20 mg 1X ONCE IM ; Start 12/13/18 at 05:00; Stop 12/13/18 at 18:51; Status DC Lorazepam 100 mg/ Sodium Chloride 100 ml @ 2 mls/hr CONT PRN IV SEDATION Last administered on 12/13/18at 19:56; Start 12/13/18 at 07:00; Stop 12/18/18 at 16:33; Status DC Olanzapine (ZyPREXA IM) 10 mg PRN Q8HRS PRN IM AGITATION Last administered on 12/19/18at 00:05; Start 12/13/18 at 08:30 Olanzapine (ZyPREXA IM) 10 mg STK-MED ONCE IM ; Start 12/13/18 at 08:37; Stop 12/13/18 at 08:38; Status DC Fentanyl Citrate (Fentanyl 2ml Vial) 75 mcg 1X ONCE IV ; Start 12/13/18 at 09:45; Stop 12/13/18 at 19:20; Status DC Fentanyl Citrate (Fentanyl 2ml Vial) 100 mcg STK-MED ONCE .ROUTE ; Start 12/13/18 at 09:47; Stop 12/13/18 at 09:48; Status DC Fentanyl Citrate (Fentanyl 2ml Vial) 75 mcg PRN Q30MIN PRN IV MILD PAIN 1-3 Last administered on 12/19/18at 05:20; Start 12/13/18 at 10:00 Multivitamins 10 ml/Thiamine HCl 100 mg/Folic Acid 1 mg/Sodium Chloride 1,011.2 ml @ 100 mls/ hr DAILY IV Last administered on 12/18/18 08:55; Start 12/14/18 at 12:00; Stop 12/18/18 at 19:07; Status DC Enoxaparin Sodium (Lovenox 80mg Syringe) 80 mg Q12HR SQ Last administered on 12/19/18 08:02; Start 12/13/18 at 14:30 Warfarin Sodium (Coumadin Per Pharmacy) 1 each PRN DAILY PRN MC SEE COMMENTS Last administered on 12/18/18at 16:14; Start 12/13/18 at 14:15 Warfarin Sodium (Coumadin) 7.5 mg 1X WARF ONCE PO ; Start 12/13/18 at 16:00; Stop 12/13/18 at 16:01; Status DC Nicotine (Nicoderm Cq 21mg) 1 patch DAILY TD Last administered on 12/19/18at 08:03; Start 12/14/18 at 09:00 Dexmedetomidine HCl 400 mcg/ Sodium Chloride 100 ml @ 0 mls/hr CONT PRN IV PER PROTOCOL Last administered on 12/18/18at 00:12; Start 12/14/18 at 01:45; Stop 12/18/18 at 16:33; Status DC Sodium Chloride 500 ml @ 500 mls/hr 1X PRN PRN IV SEE COMMENTS; Start 12/14/18 at 01:45 Atropine Sulfate (ATROPINE 0.5mg SYRINGE) 0.5 mg PRN Q5MIN PRN IV SEE COMMENTS; Start 12/14/18 at 01:45 Nicotine (Nicoderm Cq 21mg) 1 patch STK-MED ONCE TD ; Start 12/14/18 at 01:57; Stop 12/14/18 at 01:57; Status DC Lorazepam (Ativan) 1 mg BID PO Last administered on 12/19/18at 08:00; Start 12/14/18 at 09:00 Warfarin Sodium (Coumadin) 5 mg DAILY16 PO ; Start 12/14/18 at 16:00; Stop 12/14/18 at 09:21; Status DC Warfarin Sodium (Coumadin) 7.5 mg 1X WARF ONCE PO ; Start 12/14/18 at 16:00; Stop 12/14/18 at 16:01; Status DC Enalaprilat (Vasotec Inj) 1.25 mg Q8HRS IVP Last administered on 12/19/18at 05:19; Start 12/14/18 at 15:00 Nicardipine HCl 50 mg/Sodium Chloride 250 ml @ 25 mls/hr CONT PRN IV SEE I/O RECORD Last administered on 12/16/18at 09:58; Start 12/14/18 at 17:45; Stop 12/18/18 at 16:33; Status DC Nicardipine HCl 50 mg/Sodium Chloride 250 ml @ 25 mls/hr CONT PRN IV SEE I/O RECORD; Start 12/14/18 at 18:00; Status UNV Warfarin Sodium (Coumadin) 7.5 mg 1X WARF ONCE PO ; Start 12/15/18 at 16:00; Stop 12/15/18 at 16:01; Status DC Warfarin Sodium (Coumadin - No Dose Today) 1 each 1X WARF ONCE MC ; Start 12/16/18 at 16:00; Stop 12/16/18 at 16:01; Status DC Warfarin Sodium (Coumadin) 7.5 mg 1X WARF ONCE PO Last administered on at 08:54; Start 12/17/18 at 16:00; Stop 12/17/18 at 16:01; Status DC Ceftriaxone Sodium (Rocephin) 1 gm Q24H IVP Last administered on 12/18/18at 12:11; Start 12/18/18 at 12:30 Metoprolol Tartrate (Lopressor) 25 mg BID PO Last administered on 12/19/18at 08:01; Start 12/18/18 at 12:30 Acetaminophen/ Codeine Phosphate (Tylenol #3) 1 tab PRN Q6HRS PRN PO PAIN MILD TO MOD; Start 12/18/18 at 12:00; Stop 12/18/18 at 12:55; Status DC Lactobacillus Rhamnosus (Culturelle) 1 cap BID PO Last administered on at 08:00; Start 12/18/18 at 21:00 Acetaminophen (Tylenol) 650 mg PRN Q6HRS PRN PO FEVER; Start 12/18/18 at 13:00 Warfarin Sodium (Coumadin) 7.5 mg 1X WARF ONCE PO Last administered on 12/18/18at 18:03; Start 12/18/18 at 16:00; Stop 12/18/18 at 16:11; Status DC Albuterol/ Ipratropium (Duoneb) 3 ml 1X ONCE NEB Last administered on 12/19/18 07:15; Start 12/19/18 at 07:15; Stop 12/19/18 at 07:16; Status DC Ziprasidone (Geodon Im) 10 mg 1X ONCE IM Last administered on 12/19/18at 07:42; Start 12/19/18 at 07:15; Stop 12/19/18 at 07:16; Status DC Active Scripts Active Reported Lorazepam 1 Mg Tablet 1 Tab PO BID Percocet 7.5-325 Mg Tablet (Oxycodone/Acetaminophen) 1 Each Tablet 1 Tab PO PRN Q6HRS PRN Coumadin (Warfarin Sodium) 5 Mg Tablet 1 Tab PO DAILY Lisinopril 20 Mg Tablet 1 Tab PO DAILY Vitals/I & O Vital Sign - Last 24 Hours 12/18/18 12/18/18 12/18/18 12/18/18 08:56 09:00 10:00 11:00 Pulse 114 116 116 146 Resp 26 26 28 B/P (MAP) 104/54 103/56 (72) 129/69 (89) 132/74 (93) Pulse Ox 97 97 97 O2 Delivery Nasal Cannula Nasal Cannula Nasal Cannula O2 Flow Rate 2.0 2.0 2.0 12/18/18 12/18/18 12/18/18 12/18/18 12:00 12:00 12:10 15:00 Temp 98.7 98.7 Pulse 113 129 101 Resp 22 26 B/P (MAP) 176/83 (114) 175/83 150/87 (108) Pulse Ox 98 98 O2 Delivery Nasal Cannula Nasal Cannula Nasal Cannula O2 Flow Rate 2.0 2.0 2.0 12/18/18 12/18/18 12/18/18 12/18/18 15:02 17:10 18:50 20:00 Temp 98.2 99.1 98.2 99.1 Pulse 90 88 111 Resp 20 20 B/P (MAP) 155/101 134/78 (96) 169/101 (123) Pulse Ox 96 97 O2 Delivery Room Air Room Air Room Air 12/18/18 12/18/18 12/18/18 12/18/18 20:13 21:45 22:00 23:59 Temp 98.4 98.4 Pulse 111 111 106 Resp 20 B/P (MAP) 169/101 169/101 174/92 (119) Pulse Ox 95 O2 Delivery Room Air Room Air 12/19/18 12/19/18 12/19/18 12/19/18 03:45 05:19 05:20 05:52 Temp 98.9 98.9 Pulse 114 114 Resp 24 B/P (MAP) 165/92 (116) 165/92 Pulse Ox 95 O2 Delivery Room Air Room Air Room Air 12/19/18 12/19/18 12/19/18 12/19/18 06:19 07:07 08:00 08:01 Pulse 101 101 101 Resp 26 B/P (MAP) 170/93 (118) 170/93 170/93 Pulse Ox 96 O2 Delivery Room Air Room Air 12/19/18 08:21 Pulse Ox 96 O2 Delivery Room Air Intake and Output 12/18/18 12/18/18 12/19/18 15:00 23:00 07:00 Intake Total 16.38 ml 883.62 ml Output Total 620 ml Balance -603.62 ml 883.62 ml MER DAVIES MD Dec 19, 2018 08:27
[2018-12-19 08:47] LABS: BASO # 0.1 x10^3/uL (0.0-0.2); BASO % 2 % (0-3); EOS # 0.1 x10^3/uL (0.0-0.7); EOS % 4 % (0-3); HEMOGLOBIN 9.2 g/dL (13.0-17.5); LYMPH # 0.7 x10^3/uL (1.0-4.8); LYMPH % 17 % (24-48); MEAN CORPUSCULAR HEMOGLOBIN 26 pg (25-35); MEAN CORPUSCULAR HGB CONC 33 g/dL (31-37); MEAN CORPUSCULAR VOLUME 80 fL (79-100); MONO # 0.6 x10^3/uL (0.0-1.1); MONO % 13 % (0-9); NEUT # 2.7 x10^3/uL (1.8-7.7); NEUT % 64 % (31-73); PLATELET COUNT 308 x10^3/uL (140-400); RED BLOOD COUNT 3.51 x10^6/uL (4.30-5.70); RED CELL DISTRIBUTION WIDTH 20.5 % (11.5-14.5); WHITE BLOOD COUNT 4.2 x10^3/uL (4.0-11.0)
--- NOTE | 2018-12-19 10:32 | NUR ---
SW following pt. Pt is a transfer from ICU. PT/OT recommends acute rehab. Attempted to meet with pt but pt is currently with nursing team. Nursing staff reported it took three people to transfer pt this morning. Will attempt to meet with pt later again. Discussed with RN.
[2018-12-19 11:18] VITALS: BP 148/100
--- NOTE | 2018-12-19 11:37 | NUR ---
Pharmacy Warfarin Dosing Note S: Pharmacy consulted to assist with anticoagulation therapy O: SHAW OG is a 58 year old M with Mechanical Aortic Valve LABS: Last INR: 1.3 Last HGB: 9.2 Last HCT: 28 Last PLT: 308 Last dose of 15MG given on 12/18/18 (2 seperate 7.5mg doses charted) A:INR of 1.3 is below desired range. Target range for this patient is: 2 -3 P: Warfarin dose: 7.5 mg Today at 1600 Bridge Therapy: Enoxaparin 1 mg/kg q12h Next INR due tomorrow Pharmacy anticoagulation service will continue to follow. Jing Garvey Cristian, 12/19/18 [id number]
[2018-12-19] MEDS: cefTRIAXone IV Push 1 GM VIAL. IVP SCH (12:03)
[2018-12-19 12:47] LABS: PLT ESTIMATE ADEQUATE (ADEQUATE)
[2018-12-19 12:48] LABS: ANISOCYTOSIS MOD; OVALOCYTES PRESENT
[2018-12-19] MEDS ORDERED: POTASSIUM CHLORIDE 20 MEQ TABLET.ER. PO ONE (14:00)
--- NOTE | 2018-12-19 14:40 | NUR ---
SW following pt. Pt currently has mittens and is under 1;1 supervision. Pt is not appropriate for rehab evaluation at this time. Discussed with PT and RN.
[2018-12-19] MEDS: WARFARIN 7.5 MG TABLET. PO ONE ×2 (16:12→17:23)
[2018-12-19 16:16] VITALS: BP 168/94
[2018-12-19] MEDS: ACETAMINOPHEN 325 MG TABLET. PO PRN ×2 (16:31→17:23)
--- NOTE | 2018-12-19 17:13 | NUR ---
The patient developed fever at 101.9F, also noted to have non productive cough, and occasional wheezes on both lung shields. He also triggered positive for sepsis screen. Paged Dr. North at [phone], received orders to obtain blood culture, chest x ray, and to start doxycycline. We'll continue to monitor.
[2018-12-19] MEDS ORDERED: DOXYCYCLINE HYCLATE 100 MG TABLET PO SCH (17:30)
--- NOTE | 2018-12-19 17:32 | PDOC ---
PROGRESS NOTES Assessment Assessment Toxic encephalopathy. Metabolic encephalopathy. Alcohol intoxication, alcohol level 231 on 12/10/18. Confusion. Agitation. Hx of seizure? Afib. HTN. HLD. COPD. Peripheral neuropathy. RECOMMENDATIONS/PLAN: Vit B1 supplement. Treat medical diseases. OT/PT. EEG on 12/18/17: No seizure activity. Borderline study. Brain MRI: No acute findings. HISTORY OF THE PRESENT ILLNESS: This is a 58-year-old male patient with history of above medical diseases and alcohol use/abuse presented to the emergency room on 12/10/18 with complaints of mechanical fall down 5 steps. He was intoxicated hit his head complained of neck pain and upper back pain and chest pain. He admitted that he had pain all over and he drank 9 beers that day. He he drinks regularly. Patient does take Coumadin for a Afib and valve disorder (?). Neurology was requested for consultation on 12/17/18 due to his prolonged mental status changes. He is mildly agitated on 12/19/18. Past Medical History Cardiovascular: AFIB, HTN, Other Pulmonary: COPD CENTRAL NERVOUS SYSTEM: Periperal neuropathy, Seizure GI: GERD Psych: Anxiety, Addictions, Depression Rheumatologic: Other Renal/: Benign prostatic enlarg. Past Surgical History No pertinent history Family History Hypertension ALLERGY: NKDA MEDICATIONS: Refer to [facility] SOCIAL HISTORY: He drinks alcohol heavily for many years. He uses marijuana. REVIEW OF SYSTEMS: Constitutional: No cachexia. Head: No current traumatic brain or head injury. Skin: No edema, or rash. Ear: No infection. Eyes: No vision loss or color blindness. Nose: No bleeding or purulent discharges. Hearing: No hearing decrease. Neck: No injury. Cardiac: AFib, HTN. Pulmonary: COPD. GI: GERD. Urinary/genital: No dysuria, incontinence, urinary retention. Endocrinologic: No cousin face, craniofacial dysmorphism, polydactyly. Skeletomuscular: No muscular atrophy, deformity. Neurological: see HP. Psychiatric: Alcohol and marijuana use/abuse. Otherwise, not [id number] review of systems. PHYSICAL EXAMINATION: General appearance is in subacute distress. HEENT: Normocephalic and nontraumatic. Eyes, nose, ears, and throat are unremarkable. Neck is supple. No lymphadenopathy. No crepitus. Cardiovascular: S1, S2, regular rate and rhythm. Pulmonary: Seemed clear to auscultation bilaterally. Abdomen: Bowel sounds are positive. Extremities: No rash, lesions, or edema. No restriction of range of motion NEUROLOGICAL EXAMINATION: Awake. Not able to communicate well. Not fully oriented to time, place and person. PERRL. EOMI. CN: no acute focal findings. Muscle tone: WNL. Muscle strength: 4+ DTR: 2- UE, 0-1 at knee. Plantar reflex: Neutral response bilaterally Gait: not examined in chair. Sensory exam: no abnormal findings. No cerebellar signs elicited. F-T-N test fine. Objective Objective Vital Signs Date Time Temp Pulse Resp B/P (MAP) Pulse Ox O2 Delivery O2 Flow Rate FiO2 12/19/18 16:16 101.9 96 32 168/94 (118) 96 Room Air 101.9 12/18/18 15:00 2.0 Intake and Output 12/19/18 07:00 Intake Total 900.00 ml Output Total 620 ml Balance 280.00 ml Intake Oral 150 ml IV Total 750.00 ml Output Urine Total 620 ml Vitals Signs Vitals VS - Last 72 Hours, by Label Date Time Temp Pulse Resp B/P (MAP) Pulse Ox O2 Delivery O2 Flow Rate FiO2 12/19/18 16:16 101.9 96 32 168/94 (118) 96 Room Air 101.9 12/19/18 16:11 99 148/100 12/19/18 11:18 99.4 99 24 148/100 (116) 96 Room Air 99.4 12/19/18 08:21 96 Room Air 12/19/18 08:01 101 170/93 12/19/18 08:00 Room Air 12/19/18 08:00 101 170/93 12/19/18 07:20 19 96 Room Air 12/19/18 07:07 101 26 170/93 (118) 96 Room Air 12/19/18 06:19 Room Air 12/19/18 05:52 Room Air 12/19/18 05:20 Room Air 12/19/18 05:19 114 165/92 12/19/18 03:45 98.9 114 24 165/92 (116) 95 Room Air 98.9 12/18/18 23:59 98.4 106 20 174/92 (119) 95 Room Air 98.4 12/18/18 22:00 111 169/101 12/18/18 21:45 111 169/101 12/18/18 20:13 Room Air 12/18/18 20:00 99.1 111 20 169/101 (123) 97 Room Air 99.1 12/18/18 18:50 Room Air 12/18/18 17:10 98.2 88 20 134/78 (96) 96 Room Air 98.2 12/18/18 15:02 90 155/101 12/18/18 15:00 101 26 150/87 (108) 98 Nasal Cannula 2.0 12/18/18 12:10 129 175/83 12/18/18 12:00 98.7 113 22 176/83 (114) 98 Nasal Cannula 2.0 98.7 12/18/18 12:00 Nasal Cannula 2.0 12/18/18 11:00 146 28 132/74 (93) 97 Nasal Cannula 2.0 12/18/18 10:00 116 26 129/69 (89) 97 Nasal Cannula 2.0 12/18/18 09:00 116 26 103/56 (72) 97 Nasal Cannula 2.0 12/18/18 08:56 114 104/54 12/18/18 08:00 100.2 123 26 104/54 (71) 96 Nasal Cannula 2.0 100.2 12/18/18 08:00 Nasal Cannula 2.0 12/18/18 07:35 27 96 Nasal Cannula 2.0 12/18/18 07:00 120 24 121/55 (77) 96 Nasal Cannula 2.0 Laboratory Laboratory Laboratory Tests Test 12/19/18 05:45 White Blood Count 4.2 x10^3/uL (4.0-11.0) Red Blood Count 3.51 x10^6/uL (4.30-5.70) Hemoglobin 9.2 g/dL (13.0-17.5) Hematocrit 28.0 % (39.0-53.0) Mean Corpuscular Volume 80 fL (79-100) Mean Corpuscular Hemoglobin 26 pg (25-35) Mean Corpuscular Hemoglobin Concent 33 g/dL (31-37) Red Cell Distribution Width 20.5 % (11.5-14.5) Platelet Count 308 x10^3/uL (140-400) Neutrophils (%) (Auto) 64 % (31-73) Lymphocytes (%) (Auto) 17 % (24-48) Monocytes (%) (Auto) 13 % (0-9) Eosinophils (%) (Auto) 4 % (0-3) Basophils (%) (Auto) 2 % (0-3) Neutrophils # (Auto) 2.7 x10^3/uL (1.8-7.7) Lymphocytes # (Auto) 0.7 x10^3/uL (1.0-4.8) Monocytes # (Auto) 0.6 x10^3/uL (0.0-1.1) Eosinophils # (Auto) 0.1 x10^3/uL (0.0-0.7) Basophils # (Auto) 0.1 x10^3/uL (0.0-0.2) Platelet Estimate Adequate (ADEQUATE) Large Platelets Occ Giant Platelets Few Anisocytosis Mod Ovalocytes Present Prothrombin Time 15.6 SEC (11.7-14.0) Prothromb Time International Ratio 1.3 (0.8-1.1) Sodium Level 146 mmol/L (136-145) Potassium Level 3.0 mmol/L (3.5-5.1) Chloride Level 110 mmol/L (98-107) Carbon Dioxide Level 25 mmol/L (21-32) Anion Gap 11 (6-14) Blood Urea Nitrogen 5 mg/dL (8-26) Creatinine 0.9 mg/dL (0.7-1.3) Estimated GFR (Cockcroft-Gault) 87.0 BUN/Creatinine Ratio 6 (6-20) Glucose Level 91 mg/dL (70-99) Calcium Level 8.5 mg/dL (8.5-10.1) Total Bilirubin 0.3 mg/dL (0.2-1.0) Aspartate Amino Transf (AST/SGOT) 24 U/L (15-37) Alanine Aminotransferase (ALT/SGPT) 17 U/L (16-63) Alkaline Phosphatase 44 U/L (46-116) Total Protein 6.4 g/dL (6.4-8.2) Albumin 3.1 g/dL (3.4-5.0) Albumin/Globulin Ratio 0.9 (1.0-1.7) Medication Medications Current Medications Albuterol/ Ipratropium (Duoneb) 3 ml 1X ONCE NEB Last administered on 12/19/18at 07:15; Start 10/4/19 at 07:15; Stop 12/19/18 at 07:16; Status DC Doxycycline Hyclate (Vibra-Tab) 100 mg BID PO Last administered on 12/19/18at 17:22; Start 12/19/18 at 17:30 Lactobacillus Rhamnosus (Culturelle) 1 cap BID PO Last administered on 12/19/18at 08:00; Start 12/18/18 at 21:00 Potassium Chloride (Klor-Con) 20 meq DAILYWBKFT PO ; Start 12/20/18 at 08:00 Potassium Chloride (Klor-Con) 40 meq 1X ONCE PO Last administered on 12/19/18at 16:12; Start 12/19/18 at 14:00; Stop 12/19/18 at 14:01; Status DC Warfarin Sodium (Coumadin) 7.5 mg 1X WARF ONCE PO Last administered on 12/19/18at 17:23; Start 12/19/18 at 16:00; Stop 12/19/18 at 16:01; Status DC Ziprasidone (Geodon Im) 10 mg 1X ONCE IM Last administered on 12/19/18at 07:42; Start 12/19/18 at 07:15; Stop 12/19/18 at 07:16; Status DC Comment Review of Relevant I have reviewed the following items robert (where applicable) has been applied. JAMEL BONILLA MD Dec 19, 2018 17:32
--- NOTE | 2018-12-19 17:50 | NUR ---
The patient is put on NPO and FRIT BURNER bedside swallow eval. The patient complains of trouble swallowing this afternoon. He is on a regular diet and was able to tolerate his PO meds earlier. The patient was noted to be pocketing his pills/food.
--- NOTE | 2018-12-19 18:51 | RAD ---
PORTABLE CHEST 1V Clinical History: Cough and fever Technique: AP view of the chest was obtained at 12/19/2018 5:05 PM. Comparison: None. Findings: The cardiomediastinal silhouette is normal. The pulmonary vasculature is normal. The lungs and pleural margins are clear. There is median sternotomy wires. Impression: No evidence of an acute cardiopulmonary process. Electronically signed by: Cricket Harrell III, MD (12/19/2018 6:48 PM) [id number]
[2018-12-19 19:00] VITALS: BP 171/103
[2018-12-19 22:47] VITALS: BP 174/112
[2018-12-19] MEDS: DOXYCYCLINE HYCLATE 100 MG in IV DEXTROSE 5% 100ML 100 ML IV SCH (23:31)
[2018-12-20] VITALS (8 sets, daily range): BP systolic 155–180; BP diastolic 84–104
[2018-12-20 04:38] LABS: BASO # 0.1 x10^3/uL (0.0-0.2); BASO % 1 % (0-3); EOS # 0.2 x10^3/uL (0.0-0.7); EOS % 3 % (0-3); HEMATOCRIT 28.6 % (39.0-53.0); HEMOGLOBIN 9.3 g/dL (13.0-17.5); LYMPH # 0.8 x10^3/uL (1.0-4.8); LYMPH % 17 % (24-48); MEAN CORPUSCULAR HEMOGLOBIN 26 pg (25-35); MEAN CORPUSCULAR HGB CONC 33 g/dL (31-37); MEAN CORPUSCULAR VOLUME 80 fL (79-100); MONO # 0.6 x10^3/uL (0.0-1.1); MONO % 13 % (0-9); NEUT # 3.2 x10^3/uL (1.8-7.7); NEUT % 66 % (31-73); PLATELET COUNT 320 x10^3/uL (140-400); RED BLOOD COUNT 3.59 x10^6/uL (4.30-5.70); RED CELL DISTRIBUTION WIDTH 20.4 % (11.5-14.5); WHITE BLOOD COUNT 4.9 x10^3/uL (4.0-11.0)
[2018-12-20 04:48] LABS: PROTHROMBIN TIME PATIENT 20.4 SEC (11.7-14.0)
[2018-12-20 05:07] LABS: ALBUMIN 3.2 g/dL (3.4-5.0); CALCIUM 8.3 mg/dL (8.5-10.1); CREATININE 0.8 mg/dL (0.7-1.3); GFR 99.6; TOTAL BILIRUBIN 0.3 mg/dL (0.2-1.0); TOTAL PROTEIN 6.4 g/dL (6.4-8.2)
[2018-12-20 05:09] LABS: POTASSIUM 2.6 mmol/L (3.5-5.1)
[2018-12-20] MEDS: ENALAPRILAT 1.25 MG/ML VIAL. IVP SCH ×3 (06:22→22:43)
[2018-12-20] MEDS: POTASSIUM CHLORIDE 10MEQ 100 ML IV SCH ×4 (06:22→10:36)
[2018-12-20] MEDS: LORazepam 1 MG TABLET PO SCH ×3 (07:25→21:00)
[2018-12-20] MEDS: POTASSIUM CHLORIDE 20 MEQ TABLET.ER. PO SCH (07:25)
[2018-12-20] MEDS: LACTOBACILLUS RHAMNOSUS GG 1 CAPSULE. PO SCH ×3 (07:26→21:00)
[2018-12-20] MEDS: CALCIUM CARBONATE 500 MG TABLET PO SCH ×3 (07:26→07:28)
[2018-12-20] MEDS: METOPROLOL TART IMMED RELEASE 25 MG TABLET. PO SCH ×3 (07:26→21:00)
[2018-12-20] MEDS: LISINOPRIL 20 MG TABLET PO SCH (07:26)
[2018-12-20] MEDS: ACETAMINOPHEN 650 MG SUPP.RECT. PR PRN ×2 (07:50→14:59)
--- NOTE | 2018-12-20 07:50 | NUR ---
Pt agitated and confused. Pt is constantly calling out for his son, and the rest of his speech is unclear. Pt scored 17 on CIWA and PRN medications given. Pt temp 100.2 AX, with a HR in the 130's. PRN medications given for temperature, and 2L NC placed on patient for comfort. Will continue to monitor. Addendum: 12/20/18 at 1002 by FREDY DC RN PT TEMP. 99.9 AX, HR 129, 96% ON 2L NC. PT CURRENTLY RESTING IN BED WITH EYES CLOSED. 1:1 SITTER AT BEDSIDE. WILL CONTINUE TO MONITOR.
[2018-12-20] MEDS: SCOPOLAMINE 1.5MG PATCH. TD SCH (07:51)
[2018-12-20] MEDS: NICOTINE 21MG PATCH. TD SCH (07:51)
[2018-12-20] MEDS: ONDANSETRON PF 4 MG/2 ML VIAL. IV PRN (07:51)
[2018-12-20] MEDS ORDERED: POTASSIUM CHLORIDE 20 MEQ TABLET.ER. PO ONE ×2 (08:00→14:30)
--- NOTE | 2018-12-20 08:30 | NUR ---
Spoke with speech therapist, Neeru, this RN indicated that patient is not appropriate for evaluation today. Will continue to monitor.
[2018-12-20] MEDS: DOXYCYCLINE HYCLATE 100 MG in IV DEXTROSE 5% 100ML 100 ML IV SCH ×2 (09:57→20:54)
--- NOTE | 2018-12-20 10:50 | PDOC ---
PROGRESS NOTES Chief Complaint Chief Complaint Fall ETOH withdrawal Toxic encephalopathy Altered mental status Tachycardia SEVERE ALCOHOL ABUSE D/W FATHER BY PHONE History of Present Illness History of Present Illness 12/20/18 Pt seen and examined bedside still reported to have altered mental status Was resting in BED PEGGY RN; Charts and labs reviewed replace k 28 min pt exam, chart review, > 50% of time spent with exam, chart review, pt care coordination 12/17/18 Pt seen and examined in ICU PT still sedated PEGGY RN that she tried to wean the patient off of Precedex but he continued to be combative so she had to continue the sedation meds Consulted neurology to make sure there isn't other pathology causing his mental status change Charts and labs reviewed NA 143 12/16/18 Pt seen and examined in the ICU Pt is sedated with IV Precedex PEGGY AVALOS Pt was combative in the morning Charts and labs reviewed Na: 140 12/15/18 Pt seen and examined in the ICU Pt's son was seen leaving the room Pt is still sedated with Precedex Pt requested pain medications Chart and labs reviewed Hyponatremia resolved Pt is bradycardic with rate of 50 D/w RN 12/14/18 Pt seen and examined in the ICU Pt still sedated with Precedex INR 1.1 Hyponatremia has resolved PEGGY RN Reviewed chart 12/13/18 Pt seen and examined in the ICU Pt was combative and trying to get out of bed all morning. Pt was given Ativan, Haldol, Benadryl, Zyprexa and finally Fentanyl for patient safety. He was comfortably snoring. Discussed with son who was glad to see the pt finally asleep. PEGGY RN Vitals Vitals Vital Signs Date Time Temp Pulse Resp B/P (MAP) Pulse Ox O2 Delivery O2 Flow Rate FiO2 12/20/18 09:47 99.9 118 24 96 Nasal Cannula 2.0 99.9 Physical Exam Physical Exam HEART: No history of palpitations, chest pain or shortness of breath on exertion. LUNGS: Denies cough, hemoptysis, wheezing or shortness of breath. GASTROINTESTINAL: Denies changes in appetite, nausea, vomiting, diarrhea or constipation. GENITOURINARY: No history of frequency, urgency, hesitancy or nocturia. NEUROLOGIC: Denies history of numbness, tingling, tremor or weakness. PSYCHIATRIC: No history of panic, anxiety or depression. ENDOCRINE: No history of heat or cold intolerance, polyuria or polydipsia. EXTREMITIES: He has a lot of bruising on his arms consistent with his chronic anticoagulation with Coumadin. General: Alert, Cooperative, No acute distress, mild distress Heart: Regular rate, Normal S1, Normal S2, No murmurs, Other (Tachycardia) Lungs: Clear, Wheezing Abdomen: Normal bowel sounds, Soft Extremities: No clubbing, No cyanosis, No edema Skin: No breakdown Labs LABS Clinical History: Cough and fever Technique: AP view of the chest was obtained at 12/19/2018 5:05 PM. Comparison: None. Findings: The cardiomediastinal silhouette is normal. The pulmonary vasculature is normal. The lungs and pleural margins are clear. There is median sternotomy wires. Impression: No evidence of an acute cardiopulmonary process. Electronically signed by: Cricket Harrell III, MD (12/19/2018 6:48 PM) [facility] Laboratory Tests Test 12/20/18 03:15 White Blood Count 4.9 x10^3/uL (4.0-11.0) Red Blood Count 3.59 x10^6/uL (4.30-5.70) Hemoglobin 9.3 g/dL (13.0-17.5) Hematocrit 28.6 % (39.0-53.0) Mean Corpuscular Volume 80 fL (79-100) Mean Corpuscular Hemoglobin 26 pg (25-35) Mean Corpuscular Hemoglobin Concent 33 g/dL (31-37) Red Cell Distribution Width 20.4 % (11.5-14.5) Platelet Count 320 x10^3/uL (140-400) Neutrophils (%) (Auto) 66 % (31-73) Lymphocytes (%) (Auto) 17 % (24-48) Monocytes (%) (Auto) 13 % (0-9) Eosinophils (%) (Auto) 3 % (0-3) Basophils (%) (Auto) 1 % (0-3) Neutrophils # (Auto) 3.2 x10^3/uL (1.8-7.7) Lymphocytes # (Auto) 0.8 x10^3/uL (1.0-4.8) Monocytes # (Auto) 0.6 x10^3/uL (0.0-1.1) Eosinophils # (Auto) 0.2 x10^3/uL (0.0-0.7) Basophils # (Auto) 0.1 x10^3/uL (0.0-0.2) Prothrombin Time 20.4 SEC (11.7-14.0) Prothromb Time International Ratio 1.8 (0.8-1.1) Sodium Level 148 mmol/L (136-145) Potassium Level 2.6 mmol/L (3.5-5.1) Chloride Level 109 mmol/L (98-107) Carbon Dioxide Level 25 mmol/L (21-32) Anion Gap 14 (6-14) Blood Urea Nitrogen 3 mg/dL (8-26) Creatinine 0.8 mg/dL (0.7-1.3) Estimated GFR (Cockcroft-Gault) 99.6 BUN/Creatinine Ratio 4 (6-20) Glucose Level 75 mg/dL (70-99) Calcium Level 8.3 mg/dL (8.5-10.1) Total Bilirubin 0.3 mg/dL (0.2-1.0) Aspartate Amino Transf (AST/SGOT) 36 U/L (15-37) Alanine Aminotransferase (ALT/SGPT) 20 U/L (16-63) Alkaline Phosphatase 47 U/L (46-116) Total Protein 6.4 g/dL (6.4-8.2) Albumin 3.2 g/dL (3.4-5.0) Albumin/Globulin Ratio 1.0 (1.0-1.7) Assessment and Plan Assessmemt and Plan Problems Medical Problems: (1) Alcohol abuse Status: Acute (2) Closed head injury Status: Acute Comment Review of Relevant I have reviewed the following items robert (where applicable) has been applied. Labs Laboratory Tests Test 12/19/18 05:45 12/20/18 03:15 White Blood Count 4.2 x10^3/uL (4.0-11.0) 4.9 x10^3/uL (4.0-11.0) Red Blood Count 3.51 x10^6/uL (4.30-5.70) 3.59 x10^6/uL (4.30-5.70) Hemoglobin 9.2 g/dL (13.0-17.5) 9.3 g/dL (13.0-17.5) Hematocrit 28.0 % (39.0-53.0) 28.6 % (39.0-53.0) Mean Corpuscular Volume 80 fL (79-100) 80 fL (79-100) Mean Corpuscular Hemoglobin 26 pg (25-35) 26 pg (25-35) Mean Corpuscular Hemoglobin Concent 33 g/dL (31-37) 33 g/dL (31-37) Red Cell Distribution Width 20.5 % (11.5-14.5) 20.4 % (11.5-14.5) Platelet Count 308 x10^3/uL (140-400) 320 x10^3/uL (140-400) Neutrophils (%) (Auto) 64 % (31-73) 66 % (31-73) Lymphocytes (%) (Auto) 17 % (24-48) 17 % (24-48) Monocytes (%) (Auto) 13 % (0-9) 13 % (0-9) Eosinophils (%) (Auto) 4 % (0-3) 3 % (0-3) Basophils (%) (Auto) 2 % (0-3) 1 % (0-3) Neutrophils # (Auto) 2.7 x10^3/uL (1.8-7.7) 3.2 x10^3/uL (1.8-7.7) Lymphocytes # (Auto) 0.7 x10^3/uL (1.0-4.8) 0.8 x10^3/uL (1.0-4.8) Monocytes # (Auto) 0.6 x10^3/uL (0.0-1.1) 0.6 x10^3/uL (0.0-1.1) Eosinophils # (Auto) 0.1 x10^3/uL (0.0-0.7) 0.2 x10^3/uL (0.0-0.7) Basophils # (Auto) 0.1 x10^3/uL (0.0-0.2) 0.1 x10^3/uL (0.0-0.2) Platelet Estimate Adequate (ADEQUATE) Large Platelets Occ Giant Platelets Few Anisocytosis Mod Ovalocytes Present Prothrombin Time 15.6 SEC (11.7-14.0) 20.4 SEC (11.7-14.0) Prothromb Time International Ratio 1.3 (0.8-1.1) 1.8 (0.8-1.1) Sodium Level 146 mmol/L (136-145) 148 mmol/L (136-145) Potassium Level 3.0 mmol/L (3.5-5.1) 2.6 mmol/L (3.5-5.1) Chloride Level 110 mmol/L (98-107) 109 mmol/L (98-107) Carbon Dioxide Level 25 mmol/L (21-32) 25 mmol/L (21-32) Anion Gap 11 (6-14) 14 (6-14) Blood Urea Nitrogen 5 mg/dL (8-26) 3 mg/dL (8-26) Creatinine 0.9 mg/dL (0.7-1.3) 0.8 mg/dL (0.7-1.3) Estimated GFR (Cockcroft-Gault) 87.0 99.6 BUN/Creatinine Ratio 6 (6-20) 4 (6-20) Glucose Level 91 mg/dL (70-99) 75 mg/dL (70-99) Calcium Level 8.5 mg/dL (8.5-10.1) 8.3 mg/dL (8.5-10.1) Total Bilirubin 0.3 mg/dL (0.2-1.0) 0.3 mg/dL (0.2-1.0) Aspartate Amino Transf (AST/SGOT) 24 U/L (15-37) 36 U/L (15-37) Alanine Aminotransferase (ALT/SGPT) 17 U/L (16-63) 20 U/L (16-63) Alkaline Phosphatase 44 U/L (46-116) 47 U/L (46-116) Total Protein 6.4 g/dL (6.4-8.2) 6.4 g/dL (6.4-8.2) Albumin 3.1 g/dL (3.4-5.0) 3.2 g/dL (3.4-5.0) Albumin/Globulin Ratio 0.9 (1.0-1.7) 1.0 (1.0-1.7) Laboratory Tests Test 12/20/18 03:15 White Blood Count 4.9 x10^3/uL (4.0-11.0) Red Blood Count 3.59 x10^6/uL (4.30-5.70) Hemoglobin 9.3 g/dL (13.0-17.5) Hematocrit 28.6 % (39.0-53.0) Mean Corpuscular Volume 80 fL (79-100) Mean Corpuscular Hemoglobin 26 pg (25-35) Mean Corpuscular Hemoglobin Concent 33 g/dL (31-37) Red Cell Distribution Width 20.4 % (11.5-14.5) Platelet Count 320 x10^3/uL (140-400) Neutrophils (%) (Auto) 66 % (31-73) Lymphocytes (%) (Auto) 17 % (24-48) Monocytes (%) (Auto) 13 % (0-9) Eosinophils (%) (Auto) 3 % (0-3) Basophils (%) (Auto) 1 % (0-3) Neutrophils # (Auto) 3.2 x10^3/uL (1.8-7.7) Lymphocytes # (Auto) 0.8 x10^3/uL (1.0-4.8) Monocytes # (Auto) 0.6 x10^3/uL (0.0-1.1) Eosinophils # (Auto) 0.2 x10^3/uL (0.0-0.7) Basophils # (Auto) 0.1 x10^3/uL (0.0-0.2) Prothrombin Time 20.4 SEC (11.7-14.0) Prothromb Time International Ratio 1.8 (0.8-1.1) Sodium Level 148 mmol/L (136-145) Potassium Level 2.6 mmol/L (3.5-5.1) Chloride Level 109 mmol/L (98-107) Carbon Dioxide Level 25 mmol/L (21-32) Anion Gap 14 (6-14) Blood Urea Nitrogen 3 mg/dL (8-26) Creatinine 0.8 mg/dL (0.7-1.3) Estimated GFR (Cockcroft-Gault) 99.6 BUN/Creatinine Ratio 4 (6-20) Glucose Level 75 mg/dL (70-99) Calcium Level 8.3 mg/dL (8.5-10.1) Total Bilirubin 0.3 mg/dL (0.2-1.0) Aspartate Amino Transf (AST/SGOT) 36 U/L (15-37) Alanine Aminotransferase (ALT/SGPT) 20 U/L (16-63) Alkaline Phosphatase 47 U/L (46-116) Total Protein 6.4 g/dL (6.4-8.2) Albumin 3.2 g/dL (3.4-5.0) Albumin/Globulin Ratio 1.0 (1.0-1.7) Medications Current Medications Fentanyl Citrate (Fentanyl 2ml Vial) 50 mcg 1X ONCE IV Last administered on 12/10/18 20:03; Start 12/10/18 at 19:15; Stop 12/10/18 at 19:16; Status DC Iohexol (Omnipaque 300 Mg/ml) 75 ml 1X ONCE IV Last administered on 12/10/18 19:43; Start 12/10/18 at 19:15; Stop 12/10/18 at 19:16; Status DC Sodium Chloride 1,000 ml @ 1,000 mls/hr 1X ONCE IV Last administered on 12/10/18at 19:45; Start 12/10/18 at 19:45; Stop 12/10/18 at 20:44; Status DC Morphine Sulfate (Morphine Sulfate) 2 mg PRN Q2HR PRN IV PAIN Last administered on 12/11/18 12:03; Start 12/10/18 at 20:15; Stop 12/11/18 at 20:14; Status DC Sodium Chloride 1,000 ml @ 100 mls/hr Q10H IV Last administered on 12/11/18 08:10; Start 12/10/18 at 20:07; Stop 12/11/18 at 12:21; Status DC Diphtheria/ Tetanus/Acell Pertussis (Boostrix) 0.5 ml ONCE ONCE VAX IM Last administered on 12/10/18 21:07; Start 12/10/18 at 20:15; Stop 12/10/18 at 20:16; Status DC Ondansetron HCl (Zofran) 4 mg PRN Q6HRS PRN IV NAUSEA/VOMITING 1ST CHOICE Last administered on 12/20/18 07:51; Start 12/11/18 at 05:30 Multivitamins (Thera M Plus) 1 tab DAILY PO Last administered on 12/12/18 08:14; Start 12/11/18 at 09:00; Stop 12/13/18 at 11:25; Status DC Folic Acid (Folic Acid) 1 mg DAILY PO Last administered on 12/12/18 08:14; Start 12/11/18 at 09:00; Stop 12/13/18 at 11:25; Status DC Chlordiazepoxide (Librium) 50 mg PRN Q1HR PRN PO For CIWA 8-14 2ND CHOICE Last administered on 12/18/18 18:03; Start 12/11/18 at 05:30 Chlordiazepoxide (Librium) 100 mg PRN Q1HR PRN PO For CIWA 15+ 2ND CHOICE Last administered on 12/13/18 01:11; Start 12/11/18 at 05:30 Lorazepam (Ativan) 4 mg PRN Q1HR PRN PO For CIWA 8-14 Last administered on 12/13/18at 02:48; Start 12/11/18 at 05:30 Lorazepam (Ativan) 8 mg PRN Q1HR PRN PO For CIWA 15 or greater; Start 12/11/18 at 05:30 Lorazepam (Ativan Inj) 2 mg PRN Q1HR PRN IV For CIWA 8-14 Last administered on 12/19/18 11:15; Start 12/11/18 at 05:30 Lorazepam (Ativan Inj) 4 mg PRN Q1HR PRN IV For CIWA 15 or greater Last administered on 12/20/18 07:50; Start 12/11/18 at 05:30 Haloperidol Lactate (Haldol Inj) 5 mg PRN Q4HRS PRN IVP Hallucinatns,Confusn,Delirium Last administered on 12/19/18 06:04; Start 12/11/18 at 05:30 Diphenhydramine HCl (Benadryl) 25 mg PRN Q15MIN PRN IVP EPS symptoms 2'Haldol admin Last administered on 12/18/18 03:44; Start 12/11/18 at 05:30 Clonidine HCl (Catapres) 0.1 mg PRN Q1HR PRN PO SBP > 180 or DBP > 100, MRX3; Start 12/11/18 at 05:30 Sodium Chloride 1,000 ml @ 60 mls/hr [id number] IV Last administered on 12/19/18at 16:13; Start 12/11/18 at 13:00 Sodium Chloride 150 ml @ 50 mls/hr 1X ONCE IV Last administered on 12/11/18at 13:48; Start 12/11/18 at 13:00; Stop 12/11/18 at 15:59; Status DC Lisinopril (Prinivil) 20 mg DAILY PO Last administered on 12/19/18at 08:00; Start 12/11/18 at 14:00 Oxycodone/ Acetaminophen (Percocet 7.5/ 325) 1 tab PRN Q6HRS PRN PO PAIN SEVERE Last administered on 12/19/18 06:19; Start 12/11/18 at 13:30 Calcium Carbonate/ Glycine (Oscal) 500 mg TIDAFTMEAL PO Last administered on 12/19/18at 17:22; Start 12/12/18 at 13:00 Ziprasidone (Geodon Im) 20 mg 1X ONCE IM ; Start 12/13/18 at 05:00; Stop 12/13/18 at 18:51; Status DC Lorazepam 100 mg/ Sodium Chloride 100 ml @ 2 mls/hr CONT PRN IV SEDATION Last administered on 12/13/18at 19:56; Start 12/13/18 at 07:00; Stop 12/18/18 at 16 :33; Status DC Olanzapine (ZyPREXA IM) 10 mg PRN Q8HRS PRN IM AGITATION Last administered on 12/19/18at 00:05; Start 12/13/18 at 08:30 Olanzapine (ZyPREXA IM) 10 mg STK-MED ONCE IM ; Start 12/13/18 at 08:37; Stop 12/13/18 at 08:38; Status DC Fentanyl Citrate (Fentanyl 2ml Vial) 75 mcg 1X ONCE IV ; Start 12/13/18 at 09:45; Stop 12/13/18 at 19:20; Status DC Fentanyl Citrate (Fentanyl 2ml Vial) 100 mcg STK-MED ONCE .ROUTE ; Start 12/13/18 at 09:47; Stop 12/13/18 at 09:48; Status DC Fentanyl Citrate (Fentanyl 2ml Vial) 75 mcg PRN Q30MIN PRN IV MILD PAIN 1-3 Last administered on 12/19/18at 05:20; Start 12/13/18 at 10:00 Multivitamins 10 ml/Thiamine HCl 100 mg/Folic Acid 1 mg/Sodium Chloride 1,011.2 ml @ 100 mls/ hr DAILY IV Last administered on 12/18/18at 08:55; Start 12/14/18 at 12:00; Stop 12/18/18 at 19:07; Status DC Enoxaparin Sodium (Lovenox 80mg Syringe) 80 mg Q12HR SQ Last administered on 12/20/18at 07:50; Start 12/13/18 at 14:30 Warfarin Sodium (Coumadin Per Pharmacy) 1 each PRN DAILY PRN MC SEE COMMENTS Last administered on 12/19/18at 11:35; Start 12/13/18 at 14:15 Warfarin Sodium (Coumadin) 7.5 mg 1X WARF ONCE PO ; Start 12/13/18 at 16:00; Stop 12/13/18 at 16:01; Status DC Nicotine (Nicoderm Cq 21mg) 1 patch DAILY TD Last administered on 12/20/18at 07:51; Start 12/14/18 at 09:00 Dexmedetomidine HCl 400 mcg/ Sodium Chloride 100 ml @ 0 mls/hr CONT PRN IV PER PROTOCOL Last administered on 12/18/18at 00:12; Start 12/14/18 at 01:45; Stop 12/18/18 at 16:33; Status DC Sodium Chloride 500 ml @ 500 mls/hr 1X PRN PRN IV SEE COMMENTS; Start 12/14/18 at 01:45 Atropine Sulfate (ATROPINE 0.5mg SYRINGE) 0.5 mg PRN Q5MIN PRN IV SEE COMMENTS; Start 12/14/18 at 01:45 Nicotine (Nicoderm Cq 21mg) 1 patch STK-MED ONCE TD ; Start 12/14/18 at 01:57; Stop 12/14/18 at 01:57; Status DC Lorazepam (Ativan) 1 mg BID PO Last administered on 12/19/18at 08:00; Start 12/14/18 at 09:00 Warfarin Sodium (Coumadin) 5 mg DAILY16 PO ; Start 12/14/18 at 16:00; Stop 12/14/18 at 09:21; Status DC Warfarin Sodium (Coumadin) 7.5 mg 1X WARF ONCE PO ; Start 12/14/18 at 16:00; Stop 12/14/18 at 16:01; Status DC Enalaprilat (Vasotec Inj) 1.25 mg Q8HRS IVP Last administered on 12/20/18at 06:22; Start 12/14/18 at 15:00 Nicardipine HCl 50 mg/Sodium Chloride 250 ml @ 25 mls/hr CONT PRN IV SEE I/O RECORD Last administered on 12/16/18at 09:58; Start 12/14/18 at 17:45; Stop 12/18/18 at 16:33; Status DC Nicardipine HCl 50 mg/Sodium Chloride 250 ml @ 25 mls/hr CONT PRN IV SEE I/O RECORD; Start 12/14/18 at 18:00; Status UNV Warfarin Sodium (Coumadin) 7.5 mg 1X WARF ONCE PO ; Start 12/15/18 at 16:00; Stop 12/15/18 at 16:01; Status DC Warfarin Sodium (Coumadin - No Dose Today) 1 each 1X WARF ONCE MC ; Start 12/16/18 at 16:00; Stop 12/16/18 at 16:01; Status DC Warfarin Sodium (Coumadin) 7.5 mg 1X WARF ONCE PO Last administered on 12/18/18at 08:54; Start 12/17/18 at 16:00; Stop 12/17/18 at 16:01; Status DC Ceftriaxone Sodium (Rocephin) 1 gm Q24H IVP Last administered on 12/19/18at 12:03; Start 12/18/18 at 12:30 Metoprolol Tartrate (Lopressor) 25 mg BID PO Last administered on 12/19/18at 08:01; Start 12/18/18 at 12:30 Acetaminophen/ Codeine Phosphate (Tylenol #3) 1 tab PRN Q6HRS PRN PO PAIN MILD TO MOD; Start 12/18/18 at 12:00; Stop 12/18/18 at 12:55; Status DC Lactobacillus Rhamnosus (Culturelle) 1 cap BID PO Last administered on 12/19/18at 08:00; Start 12/18/18 at 21:00 Acetaminophen (Tylenol) 650 mg PRN Q6HRS PRN PO FEVER Last administered on 12/19/18at 17:23; Start 12/18/18 at 13:00 Warfarin Sodium (Coumadin) 7.5 mg 1X WARF ONCE PO Last administered on 10/3/19at 18:03; Start 12/18/18 at 16:00; Stop 12/18/18 at 16:11; Status DC Albuterol/ Ipratropium (Duoneb) 3 ml 1X ONCE NEB Last administered on 12/19/18at 07:15; Start 12/19/18 at 07:15; Stop 12/19/18 at 07:16; Status DC Ziprasidone (Geodon Im) 10 mg 1X ONCE IM Last administered on 12/19/18at 07:42; Start 12/19/18 at 07:15; Stop 12/19/18 at 07:16; Status DC Warfarin Sodium (Coumadin) 7.5 mg 1X WARF ONCE PO Last administered on 12/19/18at 17:23; Start 12/19/18 at 16:00; Stop 12/19/18 at 16:01; Status DC Potassium Chloride (Klor-Con) 40 meq 1X ONCE PO Last administered on 12/19/18at 16:12; Start 12/19/18 at 14:00; Stop 12/19/18 at 14:01; Status DC Potassium Chloride (Klor-Con) 20 meq DAILYWBKFT PO ; Start 12/20/18 at 08:00 Doxycycline Hyclate (Vibra-Tab) 100 mg BID PO Last administered on 12/19/18at 17:22; Start 12/19/18 at 17:30; Stop 12/19/18 at 17:57; Status DC Doxycycline Hyclate 100 mg/ Dextrose 100 ml @ 50 mls/hr Q12HR IV Last administered on 12/20/18at 09:57; Start 12/19/18 at 21:00 Metoprolol Tartrate (Lopressor Vial) 5 mg PRN Q6HRS PRN IVP HYPERTENSION; Start 12/19/18 at 18:00 Scopolamine (Transderm-Scop) 1 patch Q3DAYS TD Last administered on 12/20/18at 07:51; Start 12/20/18 at 09:00 Potassium Chloride/Water 100 ml @ 100 mls/hr Q1H IV Last administered on 12/20/18at 10:36; Start 12/20/18 at 06:00; Stop 12/20/18 at 09:59; Status DC Potassium Chloride (Klor-Con) 40 meq 1X ONCE PO ; Start 12/20/18 at 08:00; Stop 12/20/18 at 08:01; Status DC Acetaminophen (Tylenol Supp) 650 mg PRN Q6HRS PRN LA MILD PAIN / TEMP Last administered on 12/20/18at 07:50; Start 12/20/18 at 07:15 Active Scripts Active Reported Lorazepam 1 Mg Tablet 1 Tab PO BID Percocet 7.5-325 Mg Tablet (Oxycodone/Acetaminophen) 1 Each Tablet 1 Tab PO PRN Q6HRS PRN Coumadin (Warfarin Sodium) 5 Mg Tablet 1 Tab PO DAILY Lisinopril 20 Mg Tablet 1 Tab PO DAILY Vitals/I & O Vital Sign - Last 24 Hours 12/19/18 12/19/18 12/19/18 12/19/18 11:18 16:11 16:16 19:00 Temp 99.4 101.9 99.2 99.4 101.9 99.2 Pulse 99 99 96 114 Resp 24 32 24 B/P (MAP) 148/100 (116) 148/100 168/94 (118) 171/103 (125) Pulse Ox 96 96 96 O2 Delivery Room Air Room Air Room Air 12/19/18 12/19/18 12/19/18 12/19/18 20:10 21:00 21:49 22:47 Temp 100.5 100.5 Pulse 114 114 96 Resp 24 B/P (MAP) 171/103 171/103 174/112 (132) Pulse Ox 94 O2 Delivery Room Air Room Air 12/20/18 12/20/18 12/20/18 12/20/18 02:05 06:22 06:58 07:01 Temp 100.0 100.2 100.0 100.2 Pulse 99 99 133 Resp 30 26 B/P (MAP) 180/104 (129) 180/104 155/88 (110) Pulse Ox 91 92 95 O2 Delivery Room Air Room Air Nasal Cannula O2 Flow Rate 2.0 12/20/18 12/20/18 12/20/18 12/20/18 07:26 07:26 08:00 09:01 Temp 100.8 100.8 Pulse 92 92 119 Resp 36 B/P (MAP) 155/88 155/88 Pulse Ox 96 O2 Delivery Nasal Cannula Nasal Cannula O2 Flow Rate 2.0 2.0 12/20/18 09:47 Temp 99.9 99.9 Pulse 118 Resp 24 B/P (MAP) Pulse Ox 96 O2 Delivery Nasal Cannula O2 Flow Rate 2.0 Intake and Output 12/19/18 12/19/18 12/20/18 15:00 23:00 07:00 Intake Total 240 ml 0 ml 0 ml Output Total 775 ml 650 ml Balance 240 ml -775 ml -650 ml MER DAVIES MD Dec 20, 2018 10:50
[2018-12-20] MEDS: METOPROLOL TARTRATE 5 MG/5 ML VIAL. IVP PRN (11:17)
[2018-12-20] MEDS: cefTRIAXone IV Push 1 GM VIAL. IVP SCH (12:08)
--- NOTE | 2018-12-20 12:15 | NUR ---
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 Target range for this patient is: 2 -3 P: Warfarin dose: 7.5 mg Today at 1600 Bridge Therapy: Enoxaparin 1 mg/kg q12h Next INR due 10/6 AM Pharmacy anticoagulation service will continue to follow. CARROLL DENISE RPH, 12/20/18 [id number]
[2018-12-20] MEDS: IV NORMAL SALINE 1000ML BAG 1,000 ML IV SCH (14:19)
[2018-12-20] MEDS ORDERED: hydrALAZINE 20 MG/ML VIAL. IVP PRN (14:30)
[2018-12-20] MEDS: PIPERACILLIN/TAZOBACTAM 3.375 GM in IV NORMAL SALINE 50ML 50 ML IV SCH (15:45)
[2018-12-20] MEDS: IPRATRPIUM/ALBUTEROL 0.5/2.5MG 3 ML NEBU. NEB SCH ×2 (15:50→20:28)
[2018-12-20] MEDS ORDERED: WARFARIN 7.5 MG TABLET. PO ONE (16:00)
--- NOTE | 2018-12-20 17:01 | RAD ---
PORTABLE CHEST 1V History: Fever. Increased secretions. Comparison: December 19, 2018 Findings: Increased patchy bibasilar opacities. Low lung volumes. Prior median sternotomy. Normal heart size. No pleural effusion. No pneumothorax. Impression: 1. Low lung volumes with increased bibasilar opacities, most likely subsegmental atelectasis. Electronically signed by: Ike Jaime DO (12/20/2018 4:58 PM) [facility]
[2018-12-20] MEDS: fentaNYL PF VIAL 100 MCG/2 ML VIAL IV PRN ×2 (17:06→22:13)
[2018-12-21] MEDS: PIPERACILLIN/TAZOBACTAM 3.375 GM in IV NORMAL SALINE 50ML 50 ML IV SCH ×4 (00:40→18:01)
[2018-12-21 02:53] VITALS: BP 169/96
[2018-12-21] MEDS: ONDANSETRON PF 4 MG/2 ML VIAL. IV PRN (03:27)
[2018-12-21 05:02] LABS: BASO % 1 % (0-3); EOS % 0 % (0-3); HEMATOCRIT 30.8 % (39.0-53.0); HEMOGLOBIN 10.1 g/dL (13.0-17.5); LYMPH # 0.9 x10^3/uL (1.0-4.8); LYMPH % 11 % (24-48); MEAN CORPUSCULAR HEMOGLOBIN 26 pg (25-35); MEAN CORPUSCULAR HGB CONC 33 g/dL (31-37); MEAN CORPUSCULAR VOLUME 80 fL (79-100); MONO # 0.8 x10^3/uL (0.0-1.1); MONO % 9 % (0-9); NEUT # 6.9 x10^3/uL (1.8-7.7); NEUT % 80 % (31-73); PLATELET COUNT 378 x10^3/uL (140-400); RED BLOOD COUNT 3.87 x10^6/uL (4.30-5.70); RED CELL DISTRIBUTION WIDTH 21.1 % (11.5-14.5); WHITE BLOOD COUNT 8.7 x10^3/uL (4.0-11.0)
[2018-12-21 05:18] LABS: PROTHROMBIN TIME PATIENT 31.6 SEC (11.7-14.0)
[2018-12-21 05:31] LABS: ALBUMIN 3.1 g/dL (3.4-5.0); ALBUMIN/GLOBULIN RATIO 0.9 (1.0-1.7); CALCIUM 8.3 mg/dL (8.5-10.1); CREATININE 0.8 mg/dL (0.7-1.3); GFR 99.6; POTASSIUM 3.1 mmol/L (3.5-5.1); TOTAL BILIRUBIN 0.4 mg/dL (0.2-1.0); TOTAL PROTEIN 6.4 g/dL (6.4-8.2)
[2018-12-21] MEDS: ENALAPRILAT 1.25 MG/ML VIAL. IVP SCH ×3 (06:13→22:32)
[2018-12-21 07:00] VITALS: BP 163/90
[2018-12-21] MEDS: IPRATRPIUM/ALBUTEROL 0.5/2.5MG 3 ML NEBU. NEB SCH ×4 (07:04→20:04)
[2018-12-21] MEDS: fentaNYL PF VIAL 100 MCG/2 ML VIAL IV PRN ×4 (07:25→18:00)
[2018-12-21] MEDS: IV NORMAL SALINE 1000ML BAG 1,000 ML IV SCH ×2 (07:26→23:00)
[2018-12-21] MEDS: METOPROLOL TARTRATE 5 MG/5 ML VIAL. IVP PRN (07:48)
[2018-12-21] MEDS: NICOTINE 21MG PATCH. TD SCH (07:49)
[2018-12-21] MEDS: DOXYCYCLINE HYCLATE 100 MG in IV DEXTROSE 5% 100ML 100 ML IV SCH ×2 (07:56→22:15)
[2018-12-21] MEDS: POTASSIUM CHLORIDE 20 MEQ TABLET.ER. PO SCH ×2 (08:00)
[2018-12-21] MEDS: LACTOBACILLUS RHAMNOSUS GG 1 CAPSULE. PO SCH ×2 (08:13→21:00)
[2018-12-21] MEDS: METOPROLOL TART IMMED RELEASE 25 MG TABLET. PO SCH ×2 (08:13→21:00)
[2018-12-21] MEDS: LORazepam 1 MG TABLET PO SCH ×2 (08:13→21:00)
[2018-12-21] MEDS: LISINOPRIL 20 MG TABLET PO SCH (08:14)
[2018-12-21] MEDS: CALCIUM CARBONATE 500 MG TABLET PO SCH ×3 (08:14→17:35)
--- NOTE | 2018-12-21 08:58 | PDOC ---
PROGRESS NOTES Chief Complaint Chief Complaint Fall ETOH withdrawal Toxic encephalopathy Altered mental status Tachycardia SEVERE ALCOHOL ABUSE DYSPHAGIA POSSIBLE ASPIRATION FEVER HYPERNATREMIA BEGAN PPN, IV ZOSYN D/W FATHER IN ROOM History of Present Illness History of Present Illness 12/21/18 Pt seen and examined bedside still reported to have altered mental status Was resting in BED PEGGY RN; Charts and labs reviewed replace k FAILED SWALLOW TEST 27 min pt exam, chart review, > 50% of time spent with exam, chart review, pt care coordination 12/17/18 Pt seen and examined in ICU PT still sedated PEGGY RN that she tried to wean the patient off of Precedex but he continued to be combative so she had to continue the sedation meds Consulted neurology to make sure there isn't other pathology causing his mental status change Charts and labs reviewed NA 143 12/16/18 Pt seen and examined in the ICU Pt is sedated with IV Precedex PEGGY AVALOS Pt was combative in the morning Charts and labs reviewed Na: 140 12/15/18 Pt seen and examined in the ICU Pt's son was seen leaving the room Pt is still sedated with Precedex Pt requested pain medications Chart and labs reviewed Hyponatremia resolved Pt is bradycardic with rate of 50 D/w RN 12/14/18 Pt seen and examined in the ICU Pt still sedated with Precedex INR 1.1 Hyponatremia has resolved PEGGY RN Reviewed chart 12/13/18 Pt seen and examined in the ICU Pt was combative and trying to get out of bed all morning. Pt was given Ativan, Haldol, Benadryl, Zyprexa and finally Fentanyl for patient safety. He was comfortably snoring. Discussed with son who was glad to see the pt finally asleep. PEGGY RN Vitals Vitals Vital Signs Date Time Temp Pulse Resp B/P (MAP) Pulse Ox O2 Delivery O2 Flow Rate FiO2 12/21/18 07:55 97 Nasal Cannula 2.0 12/21/18 07:48 99 163/90 12/21/18 02:53 100.6 20 100.6 Physical Exam Physical Exam HEART: No history of palpitations, chest pain or shortness of breath on exertion. LUNGS: Denies cough, hemoptysis, wheezing or shortness of breath. GASTROINTESTINAL: Denies changes in appetite, nausea, vomiting, diarrhea or constipation. GENITOURINARY: No history of frequency, urgency, hesitancy or nocturia. NEUROLOGIC: Denies history of numbness, tingling, tremor or weakness. PSYCHIATRIC: No history of panic, anxiety or depression. ENDOCRINE: No history of heat or cold intolerance, polyuria or polydipsia. EXTREMITIES: He has a lot of bruising on his arms consistent with his chronic anticoagulation with Coumadin. General: Alert, Cooperative, No acute distress Heart: Regular rate, Normal S1, Normal S2, No murmurs, Other (Tachycardia) Lungs: Clear, Wheezing Abdomen: Normal bowel sounds, Soft Extremities: No clubbing, No cyanosis, No edema Skin: No breakdown Labs LABS Laboratory Tests Test 12/20/18 15:58 12/21/18 03:50 12/21/18 03:55 Lactic Acid Level 0.5 mmol/L (0.4-2.0) White Blood Count 8.7 x10^3/uL (4.0-11.0) Red Blood Count 3.87 x10^6/uL (4.30-5.70) Hemoglobin 10.1 g/dL (13.0-17.5) Hematocrit 30.8 % (39.0-53.0) Mean Corpuscular Volume 80 fL (79-100) Mean Corpuscular Hemoglobin 26 pg (25-35) Mean Corpuscular Hemoglobin Concent 33 g/dL (31-37) Red Cell Distribution Width 21.1 % (11.5-14.5) Platelet Count 378 x10^3/uL (140-400) Neutrophils (%) (Auto) 80 % (31-73) Lymphocytes (%) (Auto) 11 % (24-48) Monocytes (%) (Auto) 9 % (0-9) Eosinophils (%) (Auto) 0 % (0-3) Basophils (%) (Auto) 1 % (0-3) Neutrophils # (Auto) 6.9 x10^3/uL (1.8-7.7) Lymphocytes # (Auto) 0.9 x10^3/uL (1.0-4.8) Monocytes # (Auto) 0.8 x10^3/uL (0.0-1.1) Eosinophils # (Auto) 0.0 x10^3/uL (0.0-0.7) Basophils # (Auto) 0.0 x10^3/uL (0.0-0.2) Sodium Level 150 mmol/L (136-145) Potassium Level 3.1 mmol/L (3.5-5.1) Chloride Level 112 mmol/L (98-107) Carbon Dioxide Level 25 mmol/L (21-32) Anion Gap 13 (6-14) Blood Urea Nitrogen 6 mg/dL (8-26) Creatinine 0.8 mg/dL (0.7-1.3) Estimated GFR (Cockcroft-Gault) 99.6 BUN/Creatinine Ratio 8 (6-20) Glucose Level 97 mg/dL (70-99) Calcium Level 8.3 mg/dL (8.5-10.1) Total Bilirubin 0.4 mg/dL (0.2-1.0) Aspartate Amino Transf (AST/SGOT) 21 U/L (15-37) Alanine Aminotransferase (ALT/SGPT) 16 U/L (16-63) Alkaline Phosphatase 44 U/L (46-116) Total Protein 6.4 g/dL (6.4-8.2) Albumin 3.1 g/dL (3.4-5.0) Albumin/Globulin Ratio 0.9 (1.0-1.7) Prothrombin Time 31.6 SEC (11.7-14.0) Prothromb Time International Ratio 3.1 (0.8-1.1) Assessment and Plan Assessmemt and Plan Problems Medical Problems: (1) Alcohol abuse Status: Acute (2) Closed head injury Status: Acute Comment Review of Relevant I have reviewed the following items robert (where applicable) has been applied. Labs Laboratory Tests Test 12/20/18 03:15 12/20/18 15:58 12/21/18 03:50 12/21/18 03:55 White Blood Count 4.9 x10^3/uL (4.0-11.0) 8.7 x10^3/uL (4.0-11.0) Red Blood Count 3.59 x10^6/uL (4.30-5.70) 3.87 x10^6/uL (4.30-5.70) Hemoglobin 9.3 g/dL (13.0-17.5) 10.1 g/dL (13.0-17.5) Hematocrit 28.6 % (39.0-53.0) 30.8 % (39.0-53.0) Mean Corpuscular Volume 80 fL (79-100) 80 fL (79-100) Mean Corpuscular Hemoglobin 26 pg (25-35) 26 pg (25-35) Mean Corpuscular Hemoglobin Concent 33 g/dL (31-37) 33 g/dL (31-37) Red Cell Distribution Width 20.4 % (11.5-14.5) 21.1 % (11.5-14.5) Platelet Count 320 x10^3/uL (140-400) 378 x10^3/uL (140-400) Neutrophils (%) (Auto) 66 % (31-73) 80 % (31-73) Lymphocytes (%) (Auto) 17 % (24-48) 11 % (24-48) Monocytes (%) (Auto) 13 % (0-9) 9 % (0-9) Eosinophils (%) (Auto) 3 % (0-3) 0 % (0-3) Basophils (%) (Auto) 1 % (0-3) 1 % (0-3) Neutrophils # (Auto) 3.2 x10^3/uL (1.8-7.7) 6.9 x10^3/uL (1.8-7.7) Lymphocytes # (Auto) 0.8 x10^3/uL (1.0-4.8) 0.9 x10^3/uL (1.0-4.8) Monocytes # (Auto) 0.6 x10^3/uL (0.0-1.1) 0.8 x10^3/uL (0.0-1.1) Eosinophils # (Auto) 0.2 x10^3/uL (0.0-0.7) 0.0 x10^3/uL (0.0-0.7) Basophils # (Auto) 0.1 x10^3/uL (0.0-0.2) 0.0 x10^3/uL (0.0-0.2) Prothrombin Time 20.4 SEC (11.7-14.0) 31.6 SEC (11.7-14.0) Prothromb Time International Ratio 1.8 (0.8-1.1) 3.1 (0.8-1.1) Sodium Level 148 mmol/L (136-145) 150 mmol/L (136-145) Potassium Level 2.6 mmol/L (3.5-5.1) 3.1 mmol/L (3.5-5.1) Chloride Level 109 mmol/L (98-107) 112 mmol/L (98-107) Carbon Dioxide Level 25 mmol/L (21-32) 25 mmol/L (21-32) Anion Gap 14 (6-14) 13 (6-14) Blood Urea Nitrogen 3 mg/dL (8-26) 6 mg/dL (8-26) Creatinine 0.8 mg/dL (0.7-1.3) 0.8 mg/dL (0.7-1.3) Estimated GFR (Cockcroft-Gault) 99.6 99.6 BUN/Creatinine Ratio 4 (6-20) 8 (6-20) Glucose Level 75 mg/dL (70-99) 97 mg/dL (70-99) Calcium Level 8.3 mg/dL (8.5-10.1) 8.3 mg/dL (8.5-10.1) Total Bilirubin 0.3 mg/dL (0.2-1.0) 0.4 mg/dL (0.2-1.0) Aspartate Amino Transf (AST/SGOT) 36 U/L (15-37) 21 U/L (15-37) Alanine Aminotransferase (ALT/SGPT) 20 U/L (16-63) 16 U/L (16-63) Alkaline Phosphatase 47 U/L (46-116) 44 U/L (46-116) Total Protein 6.4 g/dL (6.4-8.2) 6.4 g/dL (6.4-8.2) Albumin 3.2 g/dL (3.4-5.0) 3.1 g/dL (3.4-5.0) Albumin/Globulin Ratio 1.0 (1.0-1.7) 0.9 (1.0-1.7) Lactic Acid Level 0.5 mmol/L (0.4-2.0) Laboratory Tests Test 12/20/18 15:58 12/21/18 03:50 12/21/18 03:55 Lactic Acid Level 0.5 mmol/L (0.4-2.0) White Blood Count 8.7 x10^3/uL (4.0-11.0) Red Blood Count 3.87 x10^6/uL (4.30-5.70) Hemoglobin 10.1 g/dL (13.0-17.5) Hematocrit 30.8 % (39.0-53.0) Mean Corpuscular Volume 80 fL (79-100) Mean Corpuscular Hemoglobin 26 pg (25-35) Mean Corpuscular Hemoglobin Concent 33 g/dL (31-37) Red Cell Distribution Width 21.1 % (11.5-14.5) Platelet Count 378 x10^3/uL (140-400) Neutrophils (%) (Auto) 80 % (31-73) Lymphocytes (%) (Auto) 11 % (24-48) Monocytes (%) (Auto) 9 % (0-9) Eosinophils (%) (Auto) 0 % (0-3) Basophils (%) (Auto) 1 % (0-3) Neutrophils # (Auto) 6.9 x10^3/uL (1.8-7.7) Lymphocytes # (Auto) 0.9 x10^3/uL (1.0-4.8) Monocytes # (Auto) 0.8 x10^3/uL (0.0-1.1) Eosinophils # (Auto) 0.0 x10^3/uL (0.0-0.7) Basophils # (Auto) 0.0 x10^3/uL (0.0-0.2) Sodium Level 150 mmol/L (136-145) Potassium Level 3.1 mmol/L (3.5-5.1) Chloride Level 112 mmol/L (98-107) Carbon Dioxide Level 25 mmol/L (21-32) Anion Gap 13 (6-14) Blood Urea Nitrogen 6 mg/dL (8-26) Creatinine 0.8 mg/dL (0.7-1.3) Estimated GFR (Cockcroft-Gault) 99.6 BUN/Creatinine Ratio 8 (6-20) Glucose Level 97 mg/dL (70-99) Calcium Level 8.3 mg/dL (8.5-10.1) Total Bilirubin 0.4 mg/dL (0.2-1.0) Aspartate Amino Transf (AST/SGOT) 21 U/L (15-37) Alanine Aminotransferase (ALT/SGPT) 16 U/L (16-63) Alkaline Phosphatase 44 U/L (46-116) Total Protein 6.4 g/dL (6.4-8.2) Albumin 3.1 g/dL (3.4-5.0) Albumin/Globulin Ratio 0.9 (1.0-1.7) Prothrombin Time 31.6 SEC (11.7-14.0) Prothromb Time International Ratio 3.1 (0.8-1.1) Microbiology 12/19/18 Blood Culture - Preliminary, Resulted NO GROWTH AFTER 1 DAY Medications Current Medications Fentanyl Citrate (Fentanyl 2ml Vial) 50 mcg 1X ONCE IV Last administered on 12/10/18 20:03; Start 12/10/18 at 19:15; Stop 12/10/18 at 19:16; Status DC Iohexol (Omnipaque 300 Mg/ml) 75 ml 1X ONCE IV Last administered on 12/10/18at 19:43; Start 12/10/18 at 19:15; Stop 12/10/18 at 19:16; Status DC Sodium Chloride 1,000 ml @ 1,000 mls/hr 1X ONCE IV Last administered on 12/10/18at 19:45; Start 12/10/18 at 19:45; Stop 12/10/18 at 20:44; Status DC Morphine Sulfate (Morphine Sulfate) 2 mg PRN Q2HR PRN IV PAIN Last administered on 12/11/18 12:03; Start 12/10/18 at 20:15; Stop 12/11/18 at 20:14; Status DC Sodium Chloride 1,000 ml @ 100 mls/hr Q10H IV Last administered on 12/11/18at 08:10; Start 12/10/18 at 20:07; Stop 12/11/18 at 12:21; Status DC Diphtheria/ Tetanus/Acell Pertussis (Boostrix) 0.5 ml ONCE ONCE VAX IM Last administered on 12/10/18at 21:07; Start 12/10/18 at 20:15; Stop 12/10/18 at 20:16; Status DC Ondansetron HCl (Zofran) 4 mg PRN Q6HRS PRN IV NAUSEA/VOMITING 1ST CHOICE Last administered on 12/21/18at 03:27; Start 12/11/18 at 05:30 Multivitamins (Thera M Plus) 1 tab DAILY PO Last administered on 12/12/18 08:14; Start 12/11/18 at 09:00; Stop 12/13/18 at 11:25; Status DC Folic Acid (Folic Acid) 1 mg DAILY PO Last administered on 12/12/18 08:14; Start 12/11/18 at 09:00; Stop 12/13/18 at 11:25; Status DC Chlordiazepoxide (Librium) 50 mg PRN Q1HR PRN PO For CIWA 8-14 2ND CHOICE Last administered on 12/18/18 18:03; Start 12/11/18 at 05:30 Chlordiazepoxide (Librium) 100 mg PRN Q1HR PRN PO For CIWA 15+ 2ND CHOICE Last administered on 12/13/18 01:11; Start 12/11/18 at 05:30 Lorazepam (Ativan) 4 mg PRN Q1HR PRN PO For CIWA 8-14 Last administered on 12/13/18 02:48; Start 12/11/18 at 05:30 Lorazepam (Ativan) 8 mg PRN Q1HR PRN PO For CIWA 15 or greater; Start 12/11/18 at 05:30 Lorazepam (Ativan Inj) 2 mg PRN Q1HR PRN IV For CIWA 8-14 Last administered on 12/21/18 08:47; Start 12/11/18 at 05:30 Lorazepam (Ativan Inj) 4 mg PRN Q1HR PRN IV For CIWA 15 or greater Last administered on 12/20/18 07:50; Start 12/11/18 at 05:30 Haloperidol Lactate (Haldol Inj) 5 mg PRN Q4HRS PRN IVP Hallucinatns,Confusn,Delirium Last administered on 12/19/18 06:04; Start 12/11/18 at 05:30 Diphenhydramine HCl (Benadryl) 25 mg PRN Q15MIN PRN IVP EPS symptoms 2'Haldol admin Last administered on 12/18/18 03:44; Start 12/11/18 at 05:30 Clonidine HCl (Catapres) 0.1 mg PRN Q1HR PRN PO SBP > 180 or DBP > 100, MRX3; Start 12/11/18 at 05:30 Sodium Chloride 1,000 ml @ 60 mls/hr [id number] IV Last administered on 12/21/18at 07:26; Start 12/11/18 at 13:00 Sodium Chloride 150 ml @ 50 mls/hr 1X ONCE IV Last administered on 12/11/18at 13:48; Start 12/11/18 at 13:00; Stop 12/11/18 at 15:59; Status DC Lisinopril (Prinivil) 20 mg DAILY PO Last administered on 12/19/18at 08:00; Start 12/11/18 at 14:00 Oxycodone/ Acetaminophen (Percocet 7.5/ 325) 1 tab PRN Q6HRS PRN PO MODERATE TO SEVERE PAIN Last administered on 12/19/18at 06:19; Start 12/11/18 at 13:30 Calcium Carbonate/ Glycine (Oscal) 500 mg TIDAFTMEAL PO Last administered on 12/19/18at 17:22; Start 12/12/18 at 13:00 Ziprasidone (Geodon Im) 20 mg 1X ONCE IM ; Start 12/13/18 at 05:00; Stop 12/13/18 at 18:51; Status DC Lorazepam 100 mg/ Sodium Chloride 100 ml @ 2 mls/hr CONT PRN IV SEDATION Last administered on 12/13/18at 19:56; Start 12/13/18 at 07:00; Stop 12/18/18 at 16:33; Status DC Olanzapine (ZyPREXA IM) 10 mg PRN Q8HRS PRN IM AGITATION Last administered on 12/19/18at 00:05; Start 12/13/18 at 08:30 Olanzapine (ZyPREXA IM) 10 mg STK-MED ONCE IM ; Start 12/13/18 at 08:37; Stop 12/13/18 at 08:38; Status DC Fentanyl Citrate (Fentanyl 2ml Vial) 75 mcg 1X ONCE IV ; Start 12/13/18 at 09:45; Stop 12/13/18 at 19:20; Status DC Fentanyl Citrate (Fentanyl 2ml Vial) 100 mcg STK-MED ONCE .ROUTE ; Start 12/13/18 at 09:47; Stop 12/13/18 at 09:48; Status DC Fentanyl Citrate (Fentanyl 2ml Vial) 75 mcg PRN Q30MIN PRN IV PAIN Last administered on 12/21/18at 07:25; Start 12/13/18 at 10:00 Multivitamins 10 ml/Thiamine HCl 100 mg/Folic Acid 1 mg/Sodium Chloride 1,011.2 ml @ 100 mls/ hr DAILY IV Last administered on 12/18/18at 08:55; Start 12/14/18 at 12:00; Stop 12/18/18 at 19:07; Status DC Enoxaparin Sodium (Lovenox 80mg Syringe) 80 mg Q12HR SQ Last administered on 12/21/18at 07:50; Start 12/13/18 at 14:30 Warfarin Sodium (Coumadin Per Pharmacy) 1 each PRN DAILY PRN MC SEE COMMENTS Last administered on 12/20/18at 12:15; Start 12/13/18 at 14:15 Warfarin Sodium (Coumadin) 7.5 mg 1X WARF ONCE PO ; Start 12/13/18 at 16:00; Stop 12/13/18 at 16:01; Status DC Nicotine (Nicoderm Cq 21mg) 1 patch DAILY TD Last administered on 12/21/18at 07:49; Start 12/14/18 at 09:00 Dexmedetomidine HCl 400 mcg/ Sodium Chloride 100 ml @ 0 mls/hr CONT PRN IV PER PROTOCOL Last administered on 12/18/18at 00:12; Start 12/14/18 at 01:45; Stop 12/18/18 at 16:33; Status DC Sodium Chloride 500 ml @ 500 mls/hr 1X PRN PRN IV SEE COMMENTS; Start 12/14/18 at 01:45; Stop 12/20/18 at 11:56; Status DC Atropine Sulfate (ATROPINE 0.5mg SYRINGE) 0.5 mg PRN Q5MIN PRN IV SEE COMMENTS; Start 12/14/18 at 01:45; Stop 12/20/18 at 11:55; Status DC Nicotine (Nicoderm Cq 21mg) 1 patch STK-MED ONCE TD ; Start 12/14/18 at 01:57; Stop 12/14/18 at 01:57; Status DC Lorazepam (Ativan) 1 mg BID PO Last administered on 12/19/18at 08:00; Start 12/14/18 at 09:00 Warfarin Sodium (Coumadin) 5 mg DAILY16 PO ; Start 12/14/18 at 16:00; Stop 12/14/18 at 09:21; Status DC Warfarin Sodium (Coumadin) 7.5 mg 1X WARF ONCE PO ; Start 12/14/18 at 16:00; Stop 12/14/18 at 16:01; Status DC Enalaprilat (Vasotec Inj) 1.25 mg Q8HRS IVP Last administered on 12/21/18at 06:13; Start 12/14/18 at 15:00 Nicardipine HCl 50 mg/Sodium Chloride 250 ml @ 25 mls/hr CONT PRN IV SEE I/O RECORD Last administered on 12/16/18at 09:58; Start 12/14/18 at 17:45; Stop 12/18/18 at 16:33; Status DC Nicardipine HCl 50 mg/Sodium Chloride 250 ml @ 25 mls/hr CONT PRN IV SEE I/O RECORD; Start 12/14/18 at 18:00; Status UNV Warfarin Sodium (Coumadin) 7.5 mg 1X WARF ONCE PO ; Start 12/15/18 at 16:00; Stop 12/15/18 at 16:01; Status DC Warfarin Sodium (Coumadin - No Dose Today) 1 each 1X WARF ONCE MC ; Start 12/16/18 at 16:00; Stop 12/16/18 at 16:01; Status DC Warfarin Sodium (Coumadin) 7.5 mg 1X WARF ONCE PO Last administered on 12/18/18at 08:54; Start 12/17/18 at 16:00; Stop 12/17/18 at 16:01; Status DC Ceftriaxone Sodium (Rocephin) 1 gm Q24H IVP Last administered on 12/20/18at 12:08; Start 12/18/18 at 12:30; Stop 12/20/18 at 15:14; Status DC Metoprolol Tartrate (Lopressor) 25 mg BID PO Last administered on 12/19/18at 08:01; Start 12/18/18 at 12:30 Acetaminophen/ Codeine Phosphate (Tylenol #3) 1 tab PRN Q6HRS PRN PO PAIN MILD TO MOD; Start 12/18/18 at 12:00; Stop 12/18/18 at 12:55; Status DC Lactobacillus Rhamnosus (Culturelle) 1 cap BID PO Last administered on 10/4/19at 08:00; Start 12/18/18 at 21:00 Acetaminophen (Tylenol) 650 mg PRN Q6HRS PRN PO FEVER Last administered on 12/19/18 17:23; Start 12/18/18 at 13:00 Warfarin Sodium (Coumadin) 7.5 mg 1X WARF ONCE PO Last administered on 12/18/18 18:03; Start 12/18/18 at 16:00; Stop 12/18/18 at 16:11; Status DC Albuterol/ Ipratropium (Duoneb) 3 ml 1X ONCE NEB Last administered on 12/19/18 07:15; Start 12/19/18 at 07:15; Stop 12/19/18 at 07:16; Status DC Ziprasidone (Geodon Im) 10 mg 1X ONCE IM Last administered on 12/19/18 07:42; Start 12/19/18 at 07:15; Stop 12/19/18 at 07:16; Status DC Warfarin Sodium (Coumadin) 7.5 mg 1X WARF ONCE PO Last administered on 12/19/18 17:23; Start 12/19/18 at 16:00; Stop 12/19/18 at 16:01; Status DC Potassium Chloride (Klor-Con) 40 meq 1X ONCE PO Last administered on 12/19/18 16:12; Start 12/19/18 at 14:00; Stop 12/19/18 at 14:01; Status DC Potassium Chloride (Klor-Con) 20 meq DAILYWBKFT PO ; Start 12/20/18 at 08:00 Doxycycline Hyclate (Vibra-Tab) 100 mg BID PO Last administered on 12/19/18 17:22; Start 12/19/18 at 17:30; Stop 12/19/18 at 17:57; Status DC Doxycycline Hyclate 100 mg/ Dextrose 100 ml @ 50 mls/hr Q12HR IV Last administered on 12/21/18 07:56; Start 12/19/18 at 21:00 Metoprolol Tartrate (Lopressor Vial) 5 mg PRN Q6HRS PRN IVP HYPERTENSION Last administered on 12/21/18 07:48; Start 12/19/18 at 18:00 Scopolamine (Transderm-Scop) 1 patch Q3DAYS TD Last administered on 10/5/19at 07:51; Start 12/20/18 at 09:00 Potassium Chloride/Water 100 ml @ 100 mls/hr Q1H IV Last administered on 12/20/18at 10:36; Start 12/20/18 at 06:00; Stop 12/20/18 at 09:59; Status DC Potassium Chloride (Klor-Con) 40 meq 1X ONCE PO ; Start 12/20/18 at 08:00; Stop 12/20/18 at 08:01; Status DC Acetaminophen (Tylenol Supp) 650 mg PRN Q6HRS PRN HI MILD PAIN / TEMP Last administered on 12/20/18at 14:59; Start 12/20/18 at 07:15 Warfarin Sodium (Coumadin) 7.5 mg 1X WARF ONCE PO ; Start 12/20/18 at 16:00; Stop 12/20/18 at 16:01; Status DC Hydralazine HCl (Apresoline Inj) 10 mg PRN Q4HRS PRN IVP ELEVATED BP, SEE COMMENTS; Start 12/20/18 at 14:30 Potassium Chloride (Klor-Con) 40 meq 1X ONCE PO ; Start 12/20/18 at 14:30; Stop 12/20/18 at 14:41; Status DC Potassium Chloride (Klor-Con) 20 meq DAILYWBKFT PO ; Start 12/21/18 at 08:00 Albuterol/ Ipratropium (Duoneb) 3 ml RTQID NEB Last administered on 12/21/18at 07:04; Start 12/20/18 at 16:00 Piperacillin Sod/ Tazobactam Sod 3.375 gm/Sodium Chloride 50 ml @ 100 mls/hr Q6HRS IV Last administered on 12/21/18at 06:12; Start 12/20/18 at 16:00 Active Scripts Active Reported Lorazepam 1 Mg Tablet 1 Tab PO BID Percocet 7.5-325 Mg Tablet (Oxycodone/Acetaminophen) 1 Each Tablet 1 Tab PO PRN Q6HRS PRN Coumadin (Warfarin Sodium) 5 Mg Tablet 1 Tab PO DAILY Lisinopril 20 Mg Tablet 1 Tab PO DAILY Vitals/I & O Vital Sign - Last 24 Hours 12/20/18 12/20/18 12/20/18 12/20/18 09:01 09:47 10:54 11:17 Temp 100.8 99.9 99.4 100.8 99.9 99.4 Pulse 119 118 119 111 Resp 36 24 32 B/P (MAP) 162/99 (120) 162/99 Pulse Ox 96 96 96 O2 Delivery Nasal Cannula Nasal Cannula Nasal Cannula O2 Flow Rate 2.0 2.0 2.0 12/20/18 12/20/18 12/20/18 12/20/18 11:46 13:00 14:20 14:55 Temp 99.3 100.1 99.3 100.1 Pulse 91 96 96 94 Resp 24 28 28 B/P (MAP) 172/98 (122) 165/102 (123) 165/102 169/84 (112) Pulse Ox 97 98 98 O2 Delivery Nasal Cannula Nasal Cannula Nasal Cannula O2 Flow Rate 2.0 2.0 2.0 12/20/18 12/20/18 12/20/18 12/20/18 15:52 17:56 18:56 20:00 Temp 99.6 99.6 Pulse 85 87 Resp 20 24 B/P (MAP) 167/84 (111) Pulse Ox 96 99 100 O2 Delivery Nasal Cannula Nasal Cannula Nasal Cannula O2 Flow Rate 2.0 2.0 2.0 2.0 12/20/18 12/20/18 12/20/18 12/20/18 20:27 22:02 22:13 22:43 Temp 99.8 99.8 Pulse 109 Resp 26 B/P (MAP) 173/102 (125) Pulse Ox 96 96 O2 Delivery Nasal Cannula Nasal Cannula Nasal Cannula Nasal Cannula O2 Flow Rate 2.0 2.0 2.0 2.0 12/20/18 12/21/18 12/21/18 12/21/18 22:43 02:53 07:04 07:25 Temp 100.6 100.6 Pulse 96 Resp 20 B/P (MAP) 173/102 169/96 (120) Pulse Ox 97 97 97 O2 Delivery Nasal Cannula Nasal Cannula Nasal Cannula O2 Flow Rate 2.0 2.0 2.0 12/21/18 12/21/18 07:48 07:55 Pulse 99 B/P (MAP) 163/90 Pulse Ox 97 O2 Delivery Nasal Cannula O2 Flow Rate 2.0 Intake and Output 12/20/18 12/20/18 12/21/18 15:00 23:00 07:00 Intake Total 1100 ml 100 ml 0 ml Output Total 300 ml 150 ml 400 ml Balance 800 ml -50 ml -400 ml MER DAVIES MD Dec 21, 2018 08:58
[2018-12-21 11:37] VITALS: BP 153/88
--- NOTE | 2018-12-21 12:22 | PDOC ---
Infectious Disease Note Vital Sign Vital Signs Vital Signs Date Time Temp Pulse Resp B/P (MAP) Pulse Ox O2 Delivery O2 Flow Rate FiO2 12/21/18 11:48 98 Nasal Cannula 2.0 12/21/18 11:37 98.8 99 153/88 (109) 98.8 12/21/18 07:00 17 Labs Lab Laboratory Tests Test 12/20/18 15:58 12/21/18 03:50 12/21/18 03:55 Lactic Acid Level 0.5 mmol/L (0.4-2.0) White Blood Count 8.7 x10^3/uL (4.0-11.0) Red Blood Count 3.87 x10^6/uL (4.30-5.70) Hemoglobin 10.1 g/dL (13.0-17.5) Hematocrit 30.8 % (39.0-53.0) Mean Corpuscular Volume 80 fL (79-100) Mean Corpuscular Hemoglobin 26 pg (25-35) Mean Corpuscular Hemoglobin Concent 33 g/dL (31-37) Red Cell Distribution Width 21.1 % (11.5-14.5) Platelet Count 378 x10^3/uL (140-400) Neutrophils (%) (Auto) 80 % (31-73) Lymphocytes (%) (Auto) 11 % (24-48) Monocytes (%) (Auto) 9 % (0-9) Eosinophils (%) (Auto) 0 % (0-3) Basophils (%) (Auto) 1 % (0-3) Neutrophils # (Auto) 6.9 x10^3/uL (1.8-7.7) Lymphocytes # (Auto) 0.9 x10^3/uL (1.0-4.8) Monocytes # (Auto) 0.8 x10^3/uL (0.0-1.1) Eosinophils # (Auto) 0.0 x10^3/uL (0.0-0.7) Basophils # (Auto) 0.0 x10^3/uL (0.0-0.2) Sodium Level 150 mmol/L (136-145) Potassium Level 3.1 mmol/L (3.5-5.1) Chloride Level 112 mmol/L (98-107) Carbon Dioxide Level 25 mmol/L (21-32) Anion Gap 13 (6-14) Blood Urea Nitrogen 6 mg/dL (8-26) Creatinine 0.8 mg/dL (0.7-1.3) Estimated GFR (Cockcroft-Gault) 99.6 BUN/Creatinine Ratio 8 (6-20) Glucose Level 97 mg/dL (70-99) Calcium Level 8.3 mg/dL (8.5-10.1) Total Bilirubin 0.4 mg/dL (0.2-1.0) Aspartate Amino Transf (AST/SGOT) 21 U/L (15-37) Alanine Aminotransferase (ALT/SGPT) 16 U/L (16-63) Alkaline Phosphatase 44 U/L (46-116) Total Protein 6.4 g/dL (6.4-8.2) Albumin 3.1 g/dL (3.4-5.0) Albumin/Globulin Ratio 0.9 (1.0-1.7) Prothrombin Time 31.6 SEC (11.7-14.0) Prothromb Time International Ratio 3.1 (0.8-1.1) Brain MRI No acute parenchymal abnormality is seen. No extra-axial fluid collection is seen. There is no MRI evidence of acute ischemia/infarction. Moderate to severe mucosal thickening is seen throughout the paranasal sinuses. There are moderate sized bilateral mastoid effusions. Normal flow voids are seen within the major vascular structures surrounding the brain parenchyma. Normal flow voids are seen within the major vascular structures surrounding the brain parenchyma. Impression: No acute parenchymal abnormality is seen. cxr Findings: Increased patchy bibasilar opacities. Low lung volumes. Prior median sternotomy. Normal heart size. No pleural effusion. No pneumothorax. Impression: 1. Low lung volumes with increased bibasilar opacities, most likely subsegmental atelectasis. Micro /. BLOOD CULTURE Preliminary NO GROWTH AFTER 1 DAY Objective Assessment Fever ? aspiration, ETOH withdrawal, infection Suspected aspiration Sinusitis Dysphagia failed bedside swallow today Encephalopathy Hyponatremia now NA 150 Alcohol withdrawal s/p fall while intoxicated ? seizure A-fib on warfarin Valvular disorder CAD Plan Plan of Care Began Zosyn 12/20, continue for now BC neg so far Maintain aspiration precautions Thank you [id number] D/w father - disabled and no outdoor activities. Has a dog - no known trauma Fever curve better with Zosyn - cont Doxy for now Given Mechanical valve and fever - consult Cardiology and check ECHO F/u labs and cults - c-diff pending Electrolytes per primary May need Additional imaging D/w nursing Attending Co-Sign Attending Co-Sign The patient was seen and interviewed as well as examined at the bedside. The chart was reviewed. The case was discussed. Agree with the plan of care. BC WAGONER APRN Dec 21, 2018 12:22 ANJU HAMILTON MD Dec 21, 2018 14:00
[2018-12-21] MEDS: AMINO AC 3%/ELECTROLYTE/GLYCER 1,000 ML IV SCH ×2 (12:58→22:14)
--- NOTE | 2018-12-21 13:10 | NUR ---
Pharmacy Warfarin Dosing Note S:Pharmacy consulted to assist with anticoagulation therapy started with target INR: 2 -3 O:SHAW OG is a 58 year old M with Mechanical Aortic Valve LABS: Last INR: 3.1 Last HGB: 10.1 Last HCT: 28.6 Last PLT: 378 Last dose of 7.5 mg given on 12/20/18 at 1723 Previous Regimen: 5MG DAILY Vitamin K given: Drug Interaction Changes: None Ongoing Drug Interactions: A:INR of 3.1 is above desired range. Target range for this patient is: 2 -3 P: Warfarin dose: 7.5 mg Today at 1600 Bridge Therapy: Enoxaparin 1 mg/kg DC LOVENOX 12/21 Next INR due IN AM Pharmacy anticoagulation service will continue to follow. BERNY NGUYỄN [facility], 12/21/18 [id number]
[2018-12-21] MEDS ORDERED: IV 1/2 NORMAL SALINE 1,000 ML IV ONE (13:15)
--- NOTE | 2018-12-21 13:54 | NUR ---
Bedside Swallow Evaluation: Please refer to full report in intervention section for additional information. Impression: Limited swallow evaluation d/t pt becoming nauseous. Pt did demonstrate s/s aspiration w/ only a few limited PO trials indicating high aspiration risk for PO. Recommendations: NPO, ST f/u for further evaluation of swallow function and safety.
[2018-12-21 15:17] VITALS: BP 168/85
[2018-12-21] MEDS ORDERED: WARFARIN 1 MG TABLET. PO ONE (16:00)
--- NOTE | 2018-12-21 16:09 | CONS ---
DATE OF CONSULTATION: CONSULTING PHYSICIAN: Dr. Caraballo. REASON FOR CONSULTATION: Fever. HISTORY OF PRESENT ILLNESS: This patient is a 58-year-old male, who was intoxicated when he fell hitting his head. He presented to the Emergency Department with complaints of neck, some upper back pain, and chest pain. He was found to have a sodium level of 119. He has a history of valvular disorder and atrial fibrillation, on anticoagulation therapy. He had hemoglobin of 10.6. Imaging was unrevealing for intracranial bleed. No fractures or dislocations. Chest x-ray was clear. Since admission, he has been confused and agitated requiring mittens and one-on-one observation. He spiked a fever of 101.9 on the 4th. He was dosed with doxycycline. He has required supplemental oxygen of 2 liters. A repeat chest x-ray showed increased patchy bibasilar opacities and low lung volumes. No pneumothorax or pleural effusion. He failed a swallow study today and is [id number]. He has been having frequent small tarry stools reported. He has continued to run low-grade fever, 100 to 100.8. Zosyn has been added. Infectious Disease has been asked to consult for further evaluation. PAST MEDICAL HISTORY: Valvular disorder, atrial fibrillation, anticoagulation therapy, depression, anxiety, transient ischemic attack, coronary artery disease, hypertension, hyperlipidemia, chronic pain, arthritis, peripheral neuropathy, chronic obstructive pulmonary disease, history of possible seizure, gastroesophageal reflux disease, benign prostate enlargement. PAST SURGICAL HISTORY: Unknown. FAMILY HISTORY: Hypertension. SOCIAL HISTORY: Heavy alcohol; history of marijuana. ALLERGIES: No known drug allergies. MEDICATIONS: Doxycycline, Zosyn, probiotics, warfarin. Other medications are available and have been reviewed on the MAR. REVIEW OF SYSTEMS: Unobtainable as the patient is encephalopathic. PHYSICAL EXAMINATION: VITAL SIGNS: Temperature is 98.8, blood pressure 153/88, heart rate 90, respiratory rate 17, and pulse oximetry 98% on 2 liters oxygen. GENERAL: The patient is resting quietly, arouses to name, and mumbles. His has mittens on. HEENT: Pupils are equally round and reactive. Oropharynx is pink and dry. NECK: Supple. LUNGS: Clear to auscultation. HEART: S1, S2. ABDOMEN: Obese, soft, and nontender with bowel sounds present. EXTREMITIES: No gross edema or cyanosis. SKIN: Warm to touch. No signs of rash. NEUROLOGIC: He is confused; mumbles. LABORATORY DATA: Today's WBC 8.7, hemoglobin 10.1, platelets 378,000; sodium 150 from 119, potassium 3.1, creatinine 0.8, BUN 0.6, glucose 97, lactic acid 0.5, total bilirubin 0.4, AST 21, ALT 16, albumin 3.1, vitamin 1475, TSH 1.509. Urinalysis 12/10 showed no wbcs or bacteria. Blood cultures from the 4th are negative to date. IMAGING: Per HPI. A brain MRI showed [id number] mucosal thickening throughout the paranasal sinuses; moderate-sized bilateral mastoid effusions; no acute parenchymal abnormality seen. IMPRESSION: 1. Fever, possibly related to aspiration, alcohol withdrawal, or infection. 2. Suspected aspiration. 3. Sinusitis. 4. Dysphagia. 5. Encephalopathy. 6. Hyponatremia, now hypernatremia. 7. Alcohol withdrawal. 8. Status post fall while intoxicated. 9. Questionable seizure. 10. Atrial fibrillation. 11. Valvular disorder. PLAN: Continue Zosyn for now. Maintain aspiration precautions. We will follow up on cultures. Monitor closely. Thank you, Dr. Caraballo, for asking us to participate in this patient's care. Should you have further questions or concerns, please call. ANJU HAMILTON MD DR: YUNIER/juanita JOB#: [id number] / [id number]
[2018-12-21 19:32] VITALS: BP 185/96
[2018-12-21 23:55] VITALS: BP 183/88
[2018-12-22] VITALS (7 sets, daily range): BP systolic 151–179; BP diastolic 79–98
[2018-12-22] MEDS: PIPERACILLIN/TAZOBACTAM 3.375 GM in IV NORMAL SALINE 50ML 50 ML IV SCH ×5 (01:09→23:59)
[2018-12-22] MEDS: fentaNYL PF VIAL 100 MCG/2 ML VIAL IV PRN (01:39)
[2018-12-22] MEDS: AMINO AC 3%/ELECTROLYTE/GLYCER 1,000 ML IV SCH ×2 (02:20→18:53)
[2018-12-22 04:59] LABS: BASO # 0.1 x10^3/uL (0.0-0.2); BASO % 1 % (0-3); EOS % 0 % (0-3); HEMATOCRIT 30.7 % (39.0-53.0); LYMPH # 1.1 x10^3/uL (1.0-4.8); LYMPH % 11 % (24-48); MEAN CORPUSCULAR HEMOGLOBIN 26 pg (25-35); MEAN CORPUSCULAR HGB CONC 33 g/dL (31-37); MEAN CORPUSCULAR VOLUME 80 fL (79-100); MONO # 0.7 x10^3/uL (0.0-1.1); MONO % 7 % (0-9); NEUT # 8.1 x10^3/uL (1.8-7.7); NEUT % 81 % (31-73); PLATELET COUNT 418 x10^3/uL (140-400); RED BLOOD COUNT 3.82 x10^6/uL (4.30-5.70); RED CELL DISTRIBUTION WIDTH 20.8 % (11.5-14.5)
[2018-12-22 05:01] LABS: PROTHROMBIN TIME PATIENT 32.4 SEC (11.7-14.0)
[2018-12-22 05:23] LABS: ALBUMIN/GLOBULIN RATIO 0.9 (1.0-1.7); CALCIUM 8.5 mg/dL (8.5-10.1); CREATININE 0.8 mg/dL (0.7-1.3); GFR 99.6; TOTAL BILIRUBIN 0.4 mg/dL (0.2-1.0); TOTAL PROTEIN 6.2 g/dL (6.4-8.2)
[2018-12-22 05:26] LABS: POTASSIUM 2.9 mmol/L (3.5-5.1)
[2018-12-22] MEDS: ENALAPRILAT 1.25 MG/ML VIAL. IVP SCH ×2 (05:29→14:48)
[2018-12-22] MEDS: POTASSIUM CHLORIDE 10MEQ 100 ML IV SCH ×4 (06:32→11:03)
[2018-12-22] MEDS: IPRATRPIUM/ALBUTEROL 0.5/2.5MG 3 ML NEBU. NEB SCH ×4 (07:25→20:40)
[2018-12-22] MEDS: POTASSIUM CHLORIDE 20 MEQ TABLET.ER. PO SCH ×2 (07:39)
[2018-12-22] MEDS: METOPROLOL TART IMMED RELEASE 25 MG TABLET. PO SCH ×2 (08:59→21:00)
[2018-12-22] MEDS: LACTOBACILLUS RHAMNOSUS GG 1 CAPSULE. PO SCH ×2 (08:59→21:00)
[2018-12-22] MEDS: LORazepam 1 MG TABLET PO SCH ×2 (08:59→21:00)
[2018-12-22] MEDS: CALCIUM CARBONATE 500 MG TABLET PO SCH ×3 (09:00→17:21)
--- NOTE | 2018-12-22 09:23 | PDOC ---
Infectious Disease Note Subjective Subjective Better today. Some cough and sinus congestion but no pain No F/C/S/N ROS ROS o/w neg Vital Sign Vital Signs Vital Signs Date Time Temp Pulse Resp B/P (MAP) Pulse Ox O2 Delivery O2 Flow Rate FiO2 12/22/18 07:48 Nasal Cannula 2.0 12/22/18 07:30 99.1 86 28 151/79 (103) 100 99.1 Physical Exam PHYSICAL EXAM GENERAL: Alert and coop. NAD - slight confusion HEENT: Pupils are equally round and reactive. Oropharynx is pink and dry. NECK: Supple. LUNGS: Clear to auscultation. HEART: S1, S2. ABDOMEN: Obese, soft, and nontender with bowel sounds present. EXTREMITIES: No gross edema or cyanosis.Mittens SKIN: Warm to touch. No signs of rash.some healing scraps NEUROLOGIC: He is confused; mumbles. Labs Lab Laboratory Tests Test 12/22/18 03:30 12/22/18 03:35 White Blood Count 10.0 x10^3/uL (4.0-11.0) Red Blood Count 3.82 x10^6/uL (4.30-5.70) Hemoglobin 10.0 g/dL (13.0-17.5) Hematocrit 30.7 % (39.0-53.0) Mean Corpuscular Volume 80 fL (79-100) Mean Corpuscular Hemoglobin 26 pg (25-35) Mean Corpuscular Hemoglobin Concent 33 g/dL (31-37) Red Cell Distribution Width 20.8 % (11.5-14.5) Platelet Count 418 x10^3/uL (140-400) Neutrophils (%) (Auto) 81 % (31-73) Lymphocytes (%) (Auto) 11 % (24-48) Monocytes (%) (Auto) 7 % (0-9) Eosinophils (%) (Auto) 0 % (0-3) Basophils (%) (Auto) 1 % (0-3) Neutrophils # (Auto) 8.1 x10^3/uL (1.8-7.7) Lymphocytes # (Auto) 1.1 x10^3/uL (1.0-4.8) Monocytes # (Auto) 0.7 x10^3/uL (0.0-1.1) Eosinophils # (Auto) 0.0 x10^3/uL (0.0-0.7) Basophils # (Auto) 0.1 x10^3/uL (0.0-0.2) Prothrombin Time 32.4 SEC (11.7-14.0) Prothromb Time International Ratio 3.2 (0.8-1.1) Sodium Level 151 mmol/L (136-145) Potassium Level 2.9 mmol/L (3.5-5.1) Chloride Level 113 mmol/L (98-107) Carbon Dioxide Level 28 mmol/L (21-32) Anion Gap 10 (6-14) Blood Urea Nitrogen 7 mg/dL (8-26) Creatinine 0.8 mg/dL (0.7-1.3) Estimated GFR (Cockcroft-Gault) 99.6 BUN/Creatinine Ratio 9 (6-20) Glucose Level 104 mg/dL (70-99) Calcium Level 8.5 mg/dL (8.5-10.1) Total Bilirubin 0.4 mg/dL (0.2-1.0) Aspartate Amino Transf (AST/SGOT) 17 U/L (15-37) Alanine Aminotransferase (ALT/SGPT) 17 U/L (16-63) Alkaline Phosphatase 41 U/L (46-116) Total Protein 6.2 g/dL (6.4-8.2) Albumin 3.0 g/dL (3.4-5.0) Albumin/Globulin Ratio 0.9 (1.0-1.7) Micro Microbiology 12/20/18 Blood Culture - Preliminary, Resulted NO GROWTH AFTER 1 DAY Objective Assessment Fever ? aspiration, ETOH withdrawal, infection - better Suspected aspiration Sinusitis Dysphagia failed bedside swallow today Encephalopathy - improved Hyponatremia now NA 150 Alcohol withdrawal s/p fall while intoxicated ? seizure A-fib on warfarin Valvular disorder CAD Plan Plan of Care Began Zosyn 12/20, continue for now BC neg so far Maintain aspiration precautions Electrolytes per primary D/w nursing ANJU HAMILTON MD Dec 22, 2018 09:23
[2018-12-22] MEDS: DOXYCYCLINE HYCLATE 100 MG in IV DEXTROSE 5% 100ML 100 ML IV SCH ×2 (09:46→22:22)
[2018-12-22] MEDS: NICOTINE 21MG PATCH. TD SCH (09:46)
--- NOTE | 2018-12-22 10:56 | PDOC ---
PROGRESS NOTES Chief Complaint Chief Complaint IMPRESSION impression Fall ETOH withdrawal , severe Toxic encephalopathy Altered mental status Tachycardia SEVERE ALCOHOL ABUSE DYSPHAGIA POSSIBLE ASPIRATION FEVER HYPERNATREMIA PPN, CONT IV ZOSYN 1/2 NS BOLUS X 1 LITER CONSULT Nephrology serum and urine osmolality D/W FATHER History of Present Illness History of Present Illness 12/22/18 Pt seen and examined bedside still reported to have altered mental status Was resting in BED PEGGY RN; Charts and labs reviewed replace k FAILED SWALLOW TEST POOR PROGNOSIS CHK SERUM OSMOLALITY 39 min pt exam, chart review, > 50% of time spent with exam, chart review, pt care coordination 12/17/18 Pt seen and examined in ICU PT still sedated PEGGY RN that she tried to wean the patient off of Precedex but he continued to be combative so she had to continue the sedation meds Consulted neurology to make sure there isn't other pathology causing his mental status change Charts and labs reviewed NA 143 12/16/18 Pt seen and examined in the ICU Pt is sedated with IV Precedex PEGGY RN Pt was combative in the morning Charts and labs reviewed Na: 140 12/15/18 Pt seen and examined in the ICU Pt's son was seen leaving the room Pt is still sedated with Precedex Pt requested pain medications Chart and labs reviewed Hyponatremia resolved Pt is bradycardic with rate of 50 D/w RN 12/14/18 Pt seen and examined in the ICU Pt still sedated with Precedex INR 1.1 Hyponatremia has resolved PEGGY RN Reviewed chart 12/13/18 Pt seen and examined in the ICU Pt was combative and trying to get out of bed all morning. Pt was given Ativan, Haldol, Benadryl, Zyprexa and finally Fentanyl for patient safety. He was comfortably snoring. Discussed with son who was glad to see the pt finally asleep. PEGGY RN Vitals Vitals Vital Signs Date Time Temp Pulse Resp B/P (MAP) Pulse Ox O2 Delivery O2 Flow Rate FiO2 12/22/18 07:48 Nasal Cannula 2.0 12/22/18 07:30 99.1 86 28 151/79 (103) 100 99.1 Physical Exam Physical Exam GENERAL: confusion HEENT: Pupils are equally round and reactive. Oropharynx is pink and dry. NECK: Supple. LUNGS: Clear to auscultation. HEART: S1, S2. ABDOMEN: Obese, soft, and nontender with bowel sounds present. EXTREMITIES: No gross edema or cyanosis.[place] SKIN: Warm to touch. No signs of rash.some healing scraps NEUROLOGIC: He is confused; mumbles. General: Alert, Cooperative, No acute distress Heart: Regular rate, Normal S1, Normal S2, No murmurs, Other (Tachycardia) Lungs: Clear, Wheezing Abdomen: Normal bowel sounds, Soft Extremities: No clubbing, No cyanosis, No edema Skin: No breakdown Labs LABS Laboratory Tests Test 12/22/18 03:30 12/22/18 03:35 White Blood Count 10.0 x10^3/uL (4.0-11.0) Red Blood Count 3.82 x10^6/uL (4.30-5.70) Hemoglobin 10.0 g/dL (13.0-17.5) Hematocrit 30.7 % (39.0-53.0) Mean Corpuscular Volume 80 fL (79-100) Mean Corpuscular Hemoglobin 26 pg (25-35) Mean Corpuscular Hemoglobin Concent 33 g/dL (31-37) Red Cell Distribution Width 20.8 % (11.5-14.5) Platelet Count 418 x10^3/uL (140-400) Neutrophils (%) (Auto) 81 % (31-73) Lymphocytes (%) (Auto) 11 % (24-48) Monocytes (%) (Auto) 7 % (0-9) Eosinophils (%) (Auto) 0 % (0-3) Basophils (%) (Auto) 1 % (0-3) Neutrophils # (Auto) 8.1 x10^3/uL (1.8-7.7) Lymphocytes # (Auto) 1.1 x10^3/uL (1.0-4.8) Monocytes # (Auto) 0.7 x10^3/uL (0.0-1.1) Eosinophils # (Auto) 0.0 x10^3/uL (0.0-0.7) Basophils # (Auto) 0.1 x10^3/uL (0.0-0.2) Prothrombin Time 32.4 SEC (11.7-14.0) Prothromb Time International Ratio 3.2 (0.8-1.1) Sodium Level 151 mmol/L (136-145) Potassium Level 2.9 mmol/L (3.5-5.1) Chloride Level 113 mmol/L (98-107) Carbon Dioxide Level 28 mmol/L (21-32) Anion Gap 10 (6-14) Blood Urea Nitrogen 7 mg/dL (8-26) Creatinine 0.8 mg/dL (0.7-1.3) Estimated GFR (Cockcroft-Gault) 99.6 BUN/Creatinine Ratio 9 (6-20) Glucose Level 104 mg/dL (70-99) Calcium Level 8.5 mg/dL (8.5-10.1) Total Bilirubin 0.4 mg/dL (0.2-1.0) Aspartate Amino Transf (AST/SGOT) 17 U/L (15-37) Alanine Aminotransferase (ALT/SGPT) 17 U/L (16-63) Alkaline Phosphatase 41 U/L (46-116) Total Protein 6.2 g/dL (6.4-8.2) Albumin 3.0 g/dL (3.4-5.0) Albumin/Globulin Ratio 0.9 (1.0-1.7) Assessment and Plan Assessmemt and Plan Problems Medical Problems: (1) Alcohol abuse Status: Acute (2) Closed head injury Status: Acute Comment Review of Relevant I have reviewed the following items robert (where applicable) has been applied. Labs Laboratory Tests Test 12/20/18 15:00 12/20/18 15:58 12/21/18 03:50 12/21/18 03:55 Clostridium difficile Toxin B Gene Negative (Negative) Lactic Acid Level 0.5 mmol/L (0.4-2.0) White Blood Count 8.7 x10^3/uL (4.0-11.0) Red Blood Count 3.87 x10^6/uL (4.30-5.70) Hemoglobin 10.1 g/dL (13.0-17.5) Hematocrit 30.8 % (39.0-53.0) Mean Corpuscular Volume 80 fL (79-100) Mean Corpuscular Hemoglobin 26 pg (25-35) Mean Corpuscular Hemoglobin Concent 33 g/dL (31-37) Red Cell Distribution Width 21.1 % (11.5-14.5) Platelet Count 378 x10^3/uL (140-400) Neutrophils (%) (Auto) 80 % (31-73) Lymphocytes (%) (Auto) 11 % (24-48) Monocytes (%) (Auto) 9 % (0-9) Eosinophils (%) (Auto) 0 % (0-3) Basophils (%) (Auto) 1 % (0-3) Neutrophils # (Auto) 6.9 x10^3/uL (1.8-7.7) Lymphocytes # (Auto) 0.9 x10^3/uL (1.0-4.8) Monocytes # (Auto) 0.8 x10^3/uL (0.0-1.1) Eosinophils # (Auto) 0.0 x10^3/uL (0.0-0.7) Basophils # (Auto) 0.0 x10^3/uL (0.0-0.2) Sodium Level 150 mmol/L (136-145) Potassium Level 3.1 mmol/L (3.5-5.1) Chloride Level 112 mmol/L (98-107) Carbon Dioxide Level 25 mmol/L (21-32) Anion Gap 13 (6-14) Blood Urea Nitrogen 6 mg/dL (8-26) Creatinine 0.8 mg/dL (0.7-1.3) Estimated GFR (Cockcroft-Gault) 99.6 BUN/Creatinine Ratio 8 (6-20) Glucose Level 97 mg/dL (70-99) Calcium Level 8.3 mg/dL (8.5-10.1) Total Bilirubin 0.4 mg/dL (0.2-1.0) Aspartate Amino Transf (AST/SGOT) 21 U/L (15-37) Alanine Aminotransferase (ALT/SGPT) 16 U/L (16-63) Alkaline Phosphatase 44 U/L (46-116) Total Protein 6.4 g/dL (6.4-8.2) Albumin 3.1 g/dL (3.4-5.0) Albumin/Globulin Ratio 0.9 (1.0-1.7) Procalcitonin < 0.10 ng/mL (0.00-0.10) Prothrombin Time 31.6 SEC (11.7-14.0) Prothromb Time International Ratio 3.1 (0.8-1.1) Test 12/22/18 03:30 12/22/18 03:35 White Blood Count 10.0 x10^3/uL (4.0-11.0) Red Blood Count 3.82 x10^6/uL (4.30-5.70) Hemoglobin 10.0 g/dL (13.0-17.5) Hematocrit 30.7 % (39.0-53.0) Mean Corpuscular Volume 80 fL (79-100) Mean Corpuscular Hemoglobin 26 pg (25-35) Mean Corpuscular Hemoglobin Concent 33 g/dL (31-37) Red Cell Distribution Width 20.8 % (11.5-14.5) Platelet Count 418 x10^3/uL (140-400) Neutrophils (%) (Auto) 81 % (31-73) Lymphocytes (%) (Auto) 11 % (24-48) Monocytes (%) (Auto) 7 % (0-9) Eosinophils (%) (Auto) 0 % (0-3) Basophils (%) (Auto) 1 % (0-3) Neutrophils # (Auto) 8.1 x10^3/uL (1.8-7.7) Lymphocytes # (Auto) 1.1 x10^3/uL (1.0-4.8) Monocytes # (Auto) 0.7 x10^3/uL (0.0-1.1) Eosinophils # (Auto) 0.0 x10^3/uL (0.0-0.7) Basophils # (Auto) 0.1 x10^3/uL (0.0-0.2) Prothrombin Time 32.4 SEC (11.7-14.0) Prothromb Time International Ratio 3.2 (0.8-1.1) Sodium Level 151 mmol/L (136-145) Potassium Level 2.9 mmol/L (3.5-5.1) Chloride Level 113 mmol/L (98-107) Carbon Dioxide Level 28 mmol/L (21-32) Anion Gap 10 (6-14) Blood Urea Nitrogen 7 mg/dL (8-26) Creatinine 0.8 mg/dL (0.7-1.3) Estimated GFR (Cockcroft-Gault) 99.6 BUN/Creatinine Ratio 9 (6-20) Glucose Level 104 mg/dL (70-99) Calcium Level 8.5 mg/dL (8.5-10.1) Total Bilirubin 0.4 mg/dL (0.2-1.0) Aspartate Amino Transf (AST/SGOT) 17 U/L (15-37) Alanine Aminotransferase (ALT/SGPT) 17 U/L (16-63) Alkaline Phosphatase 41 U/L (46-116) Total Protein 6.2 g/dL (6.4-8.2) Albumin 3.0 g/dL (3.4-5.0) Albumin/Globulin Ratio 0.9 (1.0-1.7) Laboratory Tests Test 12/22/18 03:30 12/22/18 03:35 White Blood Count 10.0 x10^3/uL (4.0-11.0) Red Blood Count 3.82 x10^6/uL (4.30-5.70) Hemoglobin 10.0 g/dL (13.0-17.5) Hematocrit 30.7 % (39.0-53.0) Mean Corpuscular Volume 80 fL (79-100) Mean Corpuscular Hemoglobin 26 pg (25-35) Mean Corpuscular Hemoglobin Concent 33 g/dL (31-37) Red Cell Distribution Width 20.8 % (11.5-14.5) Platelet Count 418 x10^3/uL (140-400) Neutrophils (%) (Auto) 81 % (31-73) Lymphocytes (%) (Auto) 11 % (24-48) Monocytes (%) (Auto) 7 % (0-9) Eosinophils (%) (Auto) 0 % (0-3) Basophils (%) (Auto) 1 % (0-3) Neutrophils # (Auto) 8.1 x10^3/uL (1.8-7.7) Lymphocytes # (Auto) 1.1 x10^3/uL (1.0-4.8) Monocytes # (Auto) 0.7 x10^3/uL (0.0-1.1) Eosinophils # (Auto) 0.0 x10^3/uL (0.0-0.7) Basophils # (Auto) 0.1 x10^3/uL (0.0-0.2) Prothrombin Time 32.4 SEC (11.7-14.0) Prothromb Time International Ratio 3.2 (0.8-1.1) Sodium Level 151 mmol/L (136-145) Potassium Level 2.9 mmol/L (3.5-5.1) Chloride Level 113 mmol/L (98-107) Carbon Dioxide Level 28 mmol/L (21-32) Anion Gap 10 (6-14) Blood Urea Nitrogen 7 mg/dL (8-26) Creatinine 0.8 mg/dL (0.7-1.3) Estimated GFR (Cockcroft-Gault) 99.6 BUN/Creatinine Ratio 9 (6-20) Glucose Level 104 mg/dL (70-99) Calcium Level 8.5 mg/dL (8.5-10.1) Total Bilirubin 0.4 mg/dL (0.2-1.0) Aspartate Amino Transf (AST/SGOT) 17 U/L (15-37) Alanine Aminotransferase (ALT/SGPT) 17 U/L (16-63) Alkaline Phosphatase 41 U/L (46-116) Total Protein 6.2 g/dL (6.4-8.2) Albumin 3.0 g/dL (3.4-5.0) Albumin/Globulin Ratio 0.9 (1.0-1.7) Microbiology 12/20/18 Blood Culture - Preliminary, Resulted NO GROWTH AFTER 1 DAY Medications Current Medications Fentanyl Citrate (Fentanyl 2ml Vial) 50 mcg 1X ONCE IV Last administered on 12/10/18 20:03; Start 12/10/18 at 19:15; Stop 12/10/18 at 19:16; Status DC Iohexol (Omnipaque 300 Mg/ml) 75 ml 1X ONCE IV Last administered on 12/10/18at 19:43; Start 12/10/18 at 19:15; Stop 12/10/18 at 19:16; Status DC Sodium Chloride 1,000 ml @ 1,000 mls/hr 1X ONCE IV Last administered on at 19:45; Start 12/10/18 at 19:45; Stop 12/10/18 at 20:44; Status DC Morphine Sulfate (Morphine Sulfate) 2 mg PRN Q2HR PRN IV PAIN Last administered on 12/11/18at 12:03; Start 12/10/18 at 20:15; Stop 12/11/18 at 20:14; Status DC Sodium Chloride 1,000 ml @ 100 mls/hr Q10H IV Last administered on 12/11/18 08:10; Start 12/10/18 at 20:07; Stop 12/11/18 at 12:21; Status DC Diphtheria/ Tetanus/Acell Pertussis (Boostrix) 0.5 ml ONCE ONCE VAX IM Last administered on 12/10/18at 21:07; Start 12/10/18 at 20:15; Stop 12/10/18 at 20:16; Status DC Ondansetron HCl (Zofran) 4 mg PRN Q6HRS PRN IV NAUSEA/VOMITING 1ST CHOICE Last administered on 12/21/18 03:27; Start 12/11/18 at 05:30 Multivitamins (Thera M Plus) 1 tab DAILY PO Last administered on 12/12/18 08 :14; Start 12/11/18 at 09:00; Stop 12/13/18 at 11:25; Status DC Folic Acid (Folic Acid) 1 mg DAILY PO Last administered on 12/12/18 08:14; Start 12/11/18 at 09:00; Stop 12/13/18 at 11:25; Status DC Chlordiazepoxide (Librium) 50 mg PRN Q1HR PRN PO For CIWA 8-14 2ND CHOICE Last administered on 12/18/18 18:03; Start 12/11/18 at 05:30 Chlordiazepoxide (Librium) 100 mg PRN Q1HR PRN PO For CIWA 15+ 2ND CHOICE Last administered on 12/13/18 01:11; Start 12/11/18 at 05:30 Lorazepam (Ativan) 4 mg PRN Q1HR PRN PO For CIWA 8-14 Last administered on 12/13/18at 02:48; Start 12/11/18 at 05:30 Lorazepam (Ativan) 8 mg PRN Q1HR PRN PO For CIWA 15 or greater; Start 12/11/18 at 05:30 Lorazepam (Ativan Inj) 2 mg PRN Q1HR PRN IV For CIWA 8-14 Last administered on 12/22/18 05:27; Start 12/11/18 at 05:30 Lorazepam (Ativan Inj) 4 mg PRN Q1HR PRN IV For CIWA 15 or greater Last administered on 12/20/18 07:50; Start 12/11/18 at 05:30 Haloperidol Lactate (Haldol Inj) 5 mg PRN Q4HRS PRN IVP Hallucinatns,Confusn,Delirium Last administered on 12/19/18 06:04; Start 12/11/18 at 05:30 Diphenhydramine HCl (Benadryl) 25 mg PRN Q15MIN PRN IVP EPS symptoms 2'Haldol admin Last administered on 12/18/18at 03:44; Start 12/11/18 at 05:30 Clonidine HCl (Catapres) 0.1 mg PRN Q1HR PRN PO SBP > 180 or DBP > 100, MRX3; Start 12/11/18 at 05:30 Sodium Chloride 1,000 ml @ 60 mls/hr [id number] IV Last administered on 12/21/18 07:26; Start 12/11/18 at 13:00 Sodium Chloride 150 ml @ 50 mls/hr 1X ONCE IV Last administered on 12/11/18at 13:48; Start 12/11/18 at 13:00; Stop 12/11/18 at 15:59; Status DC Lisinopril (Prinivil) 20 mg DAILY PO Last administered on 12/19/18 08:00; Start 12/11/18 at 14:00; Stop 12/21/18 at 15:19; Status DC Oxycodone/ Acetaminophen (Percocet 7.5/ 325) 1 tab PRN Q6HRS PRN PO MODERATE TO SEVERE PAIN Last administered on 12/19/18 06:19; Start 12/11/18 at 13:30 Calcium Carbonate/ Glycine (Oscal) 500 mg TIDAFTMEAL PO Last administered on 12/19/18 17:22; Start 12/12/18 at 13:00 Ziprasidone (Geodon Im) 20 mg 1X ONCE IM ; Start 12/13/18 at 05:00; Stop 12/13/18 at 18:51; Status DC Lorazepam 100 mg/ Sodium Chloride 100 ml @ 2 mls/hr CONT PRN IV SEDATION Last administered on 12/13/18at 19:56; Start 12/13/18 at 07:00; Stop 12/18/18 at 16:33; Status DC Olanzapine (ZyPREXA IM) 10 mg PRN Q8HRS PRN IM AGITATION Last administered on 10/4/19at 00:05; Start 12/13/18 at 08:30 Olanzapine (ZyPREXA IM) 10 mg STK-MED ONCE IM ; Start 12/13/18 at 08:37; Stop 12/13/18 at 08:38; Status DC Fentanyl Citrate (Fentanyl 2ml Vial) 75 mcg 1X ONCE IV ; Start 12/13/18 at 09:45; Stop 12/13/18 at 19:20; Status DC Fentanyl Citrate (Fentanyl 2ml Vial) 100 mcg STK-MED ONCE .ROUTE ; Start 12/13/18 at 09:47; Stop 12/13/18 at 09:48; Status DC Fentanyl Citrate (Fentanyl 2ml Vial) 75 mcg PRN Q30MIN PRN IV PAIN Last administered on 12/22/18at 01:39; Start 12/13/18 at 10:00 Multivitamins 10 ml/Thiamine HCl 100 mg/Folic Acid 1 mg/Sodium Chloride 1,011.2 ml @ 100 mls/ hr DAILY IV Last administered on 12/18/18at 08:55; Start 12/14/18 at 12:00; Stop 12/18/18 at 19:07; Status DC Enoxaparin Sodium (Lovenox 80mg Syringe) 80 mg Q12HR SQ Last administered on 12/21/18at 07:50; Start 12/13/18 at 14:30; Stop 12/21/18 at 12:56; Status DC Warfarin Sodium (Coumadin Per Pharmacy) 1 each PRN DAILY PRN MC SEE COMMENTS Last administered on 12/21/18at 13:02; Start 12/13/18 at 14:15 Warfarin Sodium (Coumadin) 7.5 mg 1X WARF ONCE PO ; Start 12/13/18 at 16:00; Stop 12/13/18 at 16:01; Status DC Nicotine (Nicoderm Cq 21mg) 1 patch DAILY TD Last administered on 12/22/18at 09:46; Start 12/14/18 at 09:00 Dexmedetomidine HCl 400 mcg/ Sodium Chloride 100 ml @ 0 mls/hr CONT PRN IV PER PROTOCOL Last administered on 12/18/18at 00:12; Start 12/14/18 at 01:45; Stop 12/18/18 at 16:33; Status DC Sodium Chloride 500 ml @ 500 mls/hr 1X PRN PRN IV SEE COMMENTS; Start 12/14/18 at 01:45; Stop 12/20/18 at 11:56; Status DC Atropine Sulfate (ATROPINE 0.5mg SYRINGE) 0.5 mg PRN Q5MIN PRN IV SEE COMMENTS; Start 12/14/18 at 01:45; Stop 12/20/18 at 11:55; Status DC Nicotine (Nicoderm Cq 21mg) 1 patch STK-MED ONCE TD ; Start 12/14/18 at 01:57; Stop 12/14/18 at 01:57; Status DC Lorazepam (Ativan) 1 mg BID PO Last administered on 12/19/18at 08:00; Start 12/14/18 at 09:00 Warfarin Sodium (Coumadin) 5 mg DAILY16 PO ; Start 12/14/18 at 16:00; Stop 12/14/18 at 09:21; Status DC Warfarin Sodium (Coumadin) 7.5 mg 1X WARF ONCE PO ; Start 12/14/18 at 16:00; Stop 12/14/18 at 16:01; Status DC Enalaprilat (Vasotec Inj) 1.25 mg Q8HRS IVP Last administered on 12/22/18at 05:29; Start 12/14/18 at 15:00 Nicardipine HCl 50 mg/Sodium Chloride 250 ml @ 25 mls/hr CONT PRN IV SEE I/O RECORD Last administered on 12/16/18at 09:58; Start 12/14/18 at 17:45; Stop 12/18/18 at 16:33; Status DC Nicardipine HCl 50 mg/Sodium Chloride 250 ml @ 25 mls/hr CONT PRN IV SEE I/O RECORD; Start 12/14/18 at 18:00; Status UNV Warfarin Sodium (Coumadin) 7.5 mg 1X WARF ONCE PO ; Start 12/15/18 at 16:00; Stop 12/15/18 at 16:01; Status DC Warfarin Sodium (Coumadin - No Dose Today) 1 each 1X WARF ONCE MC ; Start 12/16/18 at 16:00; Stop 12/16/18 at 16:01; Status DC Warfarin Sodium (Coumadin) 7.5 mg 1X WARF ONCE PO Last administered on 12/18/18at 08:54; Start 12/17/18 at 16:00; Stop 12/17/18 at 16:01; Status DC Ceftriaxone Sodium (Rocephin) 1 gm Q24H IVP Last administered on 12/20/18 12:08; Start 12/18/18 at 12:30; Stop 12/20/18 at 15:14; Status DC Metoprolol Tartrate (Lopressor) 25 mg BID PO Last administered on 12/19/18 08:01; Start 12/18/18 at 12:30 Acetaminophen/ Codeine Phosphate (Tylenol #3) 1 tab PRN Q6HRS PRN PO PAIN MILD TO MOD; Start 12/18/18 at 12:00; Stop 12/18/18 at 12:55; Status DC Lactobacillus Rhamnosus (Culturelle) 1 cap BID PO Last administered on 12/19/18at 08:00; Start 12/18/18 at 21:00 Acetaminophen (Tylenol) 650 mg PRN Q6HRS PRN PO FEVER Last administered on 12/19/18 17:23; Start 12/18/18 at 13:00 Warfarin Sodium (Coumadin) 7.5 mg 1X WARF ONCE PO Last administered on 12/18/18 18:03; Start 12/18/18 at 16:00; Stop 12/18/18 at 16:11; Status DC Albuterol/ Ipratropium (Duoneb) 3 ml 1X ONCE NEB Last administered on 12/19at 07:15; Start 12/19/18 at 07:15; Stop 12/19/18 at 07:16; Status DC Ziprasidone (Geodon Im) 10 mg 1X ONCE IM Last administered on 12/19/18at 07:42; Start 12/19/18 at 07:15; Stop 12/19/18 at 07:16; Status DC Warfarin Sodium (Coumadin) 7.5 mg 1X WARF ONCE PO Last administered on 12/19/18 17:23; Start 12/19/18 at 16:00; Stop 12/19/18 at 16:01; Status DC Potassium Chloride (Klor-Con) 40 meq 1X ONCE PO Last administered on 12/19/18at 16:12; Start 12/19/18 at 14:00; Stop 12/19/18 at 14:01; Status DC Potassium Chloride (Klor-Con) 20 meq DAILYWBKFT PO ; Start 12/20/18 at 08:00 Doxycycline Hyclate (Vibra-Tab) 100 mg BID PO Last administered on 12/19/18at 17:22; Start 12/19/18 at 17:30; Stop 12/19/18 at 17:57; Status DC Doxycycline Hyclate 100 mg/ Dextrose 100 ml @ 50 mls/hr Q12HR IV Last administered on 12/22/18at 09:46; Start 12/19/18 at 21:00 Metoprolol Tartrate (Lopressor Vial) 5 mg PRN Q6HRS PRN IVP HYPERTENSION Last administered on 12/21/18at 07:48; Start 12/19/18 at 18:00 Scopolamine (Transderm-Scop) 1 patch Q3DAYS TD Last administered on 12/20/18at 07:51; Start 12/20/18 at 09:00 Potassium Chloride/Water 100 ml @ 100 mls/hr Q1H IV Last administered on 12/20/18at 10:36; Start 12/20/18 at 06:00; Stop 12/20/18 at 09:59; Status DC Potassium Chloride (Klor-Con) 40 meq 1X ONCE PO ; Start 12/20/18 at 08:00; Stop 12/20/18 at 08:01; Status DC Acetaminophen (Tylenol Supp) 650 mg PRN Q6HRS PRN GA MILD PAIN / TEMP Last administered on 12/20/18at 14:59; Start 12/20/18 at 07:15 Warfarin Sodium (Coumadin) 7.5 mg 1X WARF ONCE PO ; Start 12/20/18 at 16:00; Stop 12/20/18 at 16:01; Status DC Hydralazine HCl (Apresoline Inj) 10 mg PRN Q4HRS PRN IVP ELEVATED BP, SEE COMMENTS; Start 12/20/18 at 14:30 Potassium Chloride (Klor-Con) 40 meq 1X ONCE PO ; Start 12/20/18 at 14:30; Stop 12/20/18 at 14:41; Status DC Potassium Chloride (Klor-Con) 20 meq DAILYWBKFT PO ; Start 12/21/18 at 08:00 Albuterol/ Ipratropium (Duoneb) 3 ml RTQID NEB Last administered on 12/22/18at 07:25; Start 12/20/18 at 16:00 Piperacillin Sod/ Tazobactam Sod 3.375 gm/Sodium Chloride 50 ml @ 100 mls/hr Q6HRS IV Last administered on 12/22/18at 05:27; Start 12/20/18 at 16:00 Amino Acids/ Glycerin/ Electrolytes 1,000 ml @ 75 mls/hr [id number] IV Last administered on 12/21/18at 22:14; Start 12/21/18 at 13:00 Warfarin Sodium (Coumadin) 1 mg 1X WARF ONCE PO ; Start 12/21/18 at 16:00; Stop 12/21/18 at 16:01; Status DC Sodium Chloride 1,000 ml @ 75 mls/hr 1X ONCE IV Last administered on 12/21/18at 13:49; Start 12/21/18 at 13:15; Stop 12/22/18 at 02:34; Status DC Potassium Chloride/Water 100 ml @ 100 mls/hr Q1H IV Last administered on 12/22/18at 09:22; Start 12/22/18 at 06:00; Stop 12/22/18 at 09:59; Status DC Active Scripts Active Reported Lorazepam 1 Mg Tablet 1 Tab PO BID Percocet 7.5-325 Mg Tablet (Oxycodone/Acetaminophen) 1 Each Tablet 1 Tab PO PRN Q6HRS PRN Coumadin (Warfarin Sodium) 5 Mg Tablet 1 Tab PO DAILY Lisinopril 20 Mg Tablet 1 Tab PO DAILY Vitals/I & O Vital Sign - Last 24 Hours 12/21/18 12/21/18 12/21/18 12/21/18 11:37 11:48 15:08 15:11 Temp 98.8 98.8 Pulse 99 B/P (MAP) 153/88 (109) Pulse Ox 98 98 96 96 O2 Delivery Nasal Cannula Nasal Cannula Nasal Cannula Nasal Cannula O2 Flow Rate 2.0 2.0 2.0 2.0 12/21/18 12/21/18 12/21/18 12/21/18 15:17 15:41 15:44 18:00 Temp 99.0 99.0 Pulse 107 107 Resp 17 B/P (MAP) 168/85 (112) 168/85 Pulse Ox 96 96 96 O2 Delivery Nasal Cannula Nasal Cannula Nasal Cannula O2 Flow Rate 2.0 2.0 2.0 12/21/18 12/21/18 12/21/18 12/21/18 19:20 19:32 20:00 20:03 Temp 98.0 98.0 Pulse 105 Resp 20 B/P (MAP) 185/96 (125) Pulse Ox 93 90 O2 Delivery Nasal Cannula Room Air Nasal Cannula Room Air O2 Flow Rate 2.0 2.0 12/21/18 12/21/18 12/22/18 12/22/18 22:32 23:55 01:39 02:09 Temp 98.7 98.7 Pulse 81 Resp 20 B/P (MAP) 185/96 183/88 (119) Pulse Ox 98 O2 Delivery Room Air Nasal Cannula Nasal Cannula O2 Flow Rate 2.0 12/22/18 12/22/18 12/22/18 12/22/18 02:23 05:29 07:25 07:30 Temp 98.5 99.1 98.5 99.1 Pulse 88 86 Resp 20 28 B/P (MAP) 179/98 (125) 179/98 151/79 (103) Pulse Ox 98 98 100 O2 Delivery Nasal Cannula Nasal Cannula Nasal Cannula O2 Flow Rate 2.0 2.0 2.0 12/22/18 07:48 O2 Delivery Nasal Cannula O2 Flow Rate 2.0 Intake and Output 12/21/18 12/21/18 12/22/18 15:00 23:00 07:00 Intake Total 0 ml Balance 0 ml MER DAVIES MD Dec 22, 2018 10:56
--- NOTE | 2018-12-22 11:53 | NUR ---
SW following pt. Pt still 1:1, NPO, and failed Swallow eval today. ID following pt. Plan 1. SW phoned and faxed referral to [facility], phone: [phone], fax; [phone]. Pt acceptance and admission pending. 2. Will continue follow.
--- NOTE | 2018-12-22 13:43 | PDOC2 ---
MIS GASPAR IRONING PLEATER 12/22/18 1343: CARDIAC CONSULT DATE OF CONSULT Date of Consult DATE: 12/22/18 TIME: 13:35 REASON FOR CONSULT Reason for Consult: Fever, mechanical valve REFERRING PHYSICIAN Referring Physician: Dr. Schmitz SOURCE Source: Chart review, Patient HISTORY OF PRESENT ILLNESS HISTORY OF PRESENT ILLNESS This is a 58 yo male, with a long-standing history of alcoholism and aortic stenosis s/p mechanical aortic valve, who initially presented a week and a half ago secondary to mechanical fall. Patient was intoxicated and fell down 5 stairs and lost consciousness. Has been confused, combative. Currently 1:1 status with mits on. Unable to provide any meaningful history. History obtained from son and from chart review. PAST MEDICAL HISTORY Cardiovascular: AFIB, HTN, Hyperlipidemia, Valve insufficiency (mitral. s/p bioprosthetic aortic valve 2005 that developed stenosis. Reoperative mechanical aoritc valve replacement in 2011) Psych: Anxiety, Depression PAST SURGICAL HISTORY Past Surgical History Bovine pericardial aortic bioprosthesis in 2005 at [facility], which developed aortic stenosis. Reoperative mechanical aortic valve replacement 2011 at FAMILY HISTORY Family History: Diabetes SOCIAL HISTORY Smoke: 1 pack per day ALCOHOL: heavy (up to 25 beers per day) Lives: Alone (son often stays the night ) CURRENT MEDICATIONS CURRENT MEDICATIONS Current Medications Medications (Trade) Dose Ordered Sig/Siddharth Route PRN Reason Start Time Stop Time Status Last Admin Dose Admin Potassium Chloride/Water 100 ml @ 100 mls/hr Q1H IV 12/22/18 06:00 12/22/18 09:59 DC 12/22/18 11:03 ALLERGIES ALLERGIES: Coded Allergies: No Known Drug Allergies (Unverified , 10/05/17) ROS Review of System unobtainable due to current mentation PHYSICAL EXAM General: Alert, No acute distress, Other (confused ) HEENT: Atraumatic, Mucous membr. moist/pink Lungs: Other (diminished bases) Heart: Regular rate, Normal S1, Normal S2, Other (valvular click) Abdomen: Soft Extremities: Other (trace bilateral LE edema ) Skin: No significant lesion Neuro: Sensation intact Psych/Mental Status: Mental status NL, Mood NL MUSCULOSKELETAL: Osteoarthritic changes both hands VITALS/I&O VITALS/I&O: Vital Signs Date Time Temp Pulse Resp B/P (MAP) Pulse Ox O2 Delivery O2 Flow Rate FiO2 12/22/18 11:11 97 Nasal Cannula 2.0 12/22/18 11:07 88 177/91 12/22/18 10:59 97.9 20 97.9 I & O 12/21/18 12/21/18 12/22/18 15:00 23:00 07:00 Intake Total 0 ml Balance 0 ml LABS Lab: Laboratory Tests Test 12/22/18 03:30 12/22/18 03:35 12/22/18 13:11 White Blood Count 10.0 x10^3/uL (4.0-11.0) Red Blood Count 3.82 x10^6/uL (4.30-5.70) L Hemoglobin 10.0 g/dL (13.0-17.5) L Hematocrit 30.7 % (39.0-53.0) L Mean Corpuscular Volume 80 fL (79-100) Mean Corpuscular Hemoglobin 26 pg (25-35) Mean Corpuscular Hemoglobin Concent 33 g/dL (31-37) Red Cell Distribution Width 20.8 % (11.5-14.5) H Platelet Count 418 x10^3/uL (140-400) H Neutrophils (%) (Auto) 81 % (31-73) H Lymphocytes (%) (Auto) 11 % (24-48) L Monocytes (%) (Auto) 7 % (0-9) Eosinophils (%) (Auto) 0 % (0-3) Basophils (%) (Auto) 1 % (0-3) Neutrophils # (Auto) 8.1 x10^3/uL (1.8-7.7) H Lymphocytes # (Auto) 1.1 x10^3/uL (1.0-4.8) Monocytes # (Auto) 0.7 x10^3/uL (0.0-1.1) Eosinophils # (Auto) 0.0 x10^3/uL (0.0-0.7) Basophils # (Auto) 0.1 x10^3/uL (0.0-0.2) Prothrombin Time 32.4 SEC (11.7-14.0) H Prothrombin Time INR 3.2 (0.8-1.1) H Sodium Level 151 mmol/L (136-145) H Potassium Level 2.9 mmol/L (3.5-5.1) *L Chloride Level 113 mmol/L (98-107) H Carbon Dioxide Level 28 mmol/L (21-32) Anion Gap 10 (6-14) Blood Urea Nitrogen 7 mg/dL (8-26) L Creatinine 0.8 mg/dL (0.7-1.3) Estimated GFR (Cockcroft-Gault) 99.6 BUN/Creatinine Ratio 9 (6-20) Glucose Level 104 mg/dL (70-99) H Calcium Level 8.5 mg/dL (8.5-10.1) Total Bilirubin 0.4 mg/dL (0.2-1.0) Aspartate Amino Transferase (AST) 17 U/L (15-37) Alanine Aminotransferase (ALT) 17 U/L (16-63) Alkaline Phosphatase 41 U/L (46-116) L Total Protein 6.2 g/dL (6.4-8.2) L Albumin 3.0 g/dL (3.4-5.0) L Albumin/Globulin Ratio 0.9 (1.0-1.7) L Glucose (Fingerstick) 168 mg/dL (70-99) H Laboratory Tests 12/22/18 03:30 Laboratory Tests 12/22/18 03:35 ASSESSMENT/PLAN ASSESSMENT/PLAN 1. Mechanical fall secondary to intoxication 2. Aortic stenosis s/p mechanical aortic valve; OAC with warfarin 3.2. Unfortunately high risk for bleeding given chronic alcoholism and frequent falls 3. Metabolic, toxic encephalopathy 4. Dysphagia, possible aspiration PNA 5. Fevers, low-grade. BC negative thus far 6. Hypertension; labile 7. PAFIB; maintaining SR 8. Hypokalemia; replaced 9. ETOH abuse Recommendations Echo to assess LV function, aortic valve, and presence of vegetation Warfarin therapy Metoprolol, hydralazine IV while NPO ETOH withdrawal protocol Antibiotic therapy Follow blood cultures. DONNA if indicated ANN-MARIE CARY MD 12/22/182027: CARDIAC CONSULT ASSESSMENT/PLAN ASSESSMENT/PLAN Patient seen and examined. Agree with FINANCE ANALYST's assessment and plan. Fall mechanical secondary to alcohol intoxication Check 2D echo to check mechanical valve function INR therapeutic - continue warfarin PAF maintaining SR Monitor for alcohol withdrawal symptoms Thank you for your consultation MIS GASPAR APRN Dec 22, 2018 13:43 ANN-MARIE CARY MD Dec 22, 2018 20:28
--- NOTE | 2018-12-22 14:18 | PDOC ---
PROGRESS NOTES Assessment Assessment Toxic encephalopathy. Metabolic encephalopathy. Alcohol intoxication, alcohol level 231 on 12/10/18. Confusion. Agitation. Hx of seizure? Afib. HTN. HLD. COPD. Peripheral neuropathy. RECOMMENDATIONS/PLAN: Continue Vit B1 supplement. Treat medical diseases. OT/PT. Avoid Haldol as possible. EEG on 12/18/17: No seizure activity. Borderline study. Brain MRI: No acute findings. HISTORY OF THE PRESENT ILLNESS: This is a 58-year-old male patient with history of above medical diseases and alcohol use/abuse presented to the emergency room on 12/10/18 with complaints of mechanical fall down 5 steps. He was intoxicated hit his head complained of neck pain and upper back pain and chest pain. He admitted that he had pain all over and he drank 9 beers that day. He he drinks regularly. Patient does take Coumadin for a Afib and valve disorder (?). Neurology was requested for consultation on 12/17/18 due to his prolonged mental status changes. He is still mildly agitated on 12/22/18. Past Medical History Cardiovascular: AFIB, HTN, Other Pulmonary: COPD CENTRAL NERVOUS SYSTEM: Periperal neuropathy, Seizure GI: GERD Psych: Anxiety, Addictions, Depression Rheumatologic: Other Renal/: Benign prostatic enlarg. Past Surgical History No pertinent history Family History Hypertension ALLERGY: NKDA MEDICATIONS: Refer to MAR SOCIAL HISTORY: He drinks alcohol heavily for many years. He uses marijuana. REVIEW OF SYSTEMS: Constitutional: No cachexia. Head: No current traumatic brain or head injury. Skin: No edema, or rash. Ear: No infection. Eyes: No vision loss or color blindness. Nose: No bleeding or purulent discharges. Hearing: No hearing decrease. Neck: No injury. Cardiac: AFib, HTN. Pulmonary: COPD. GI: GERD. Urinary/genital: No dysuria, incontinence, urinary retention. Endocrinologic: No cousin face, craniofacial dysmorphism, polydactyly. Skeletomuscular: No muscular atrophy, deformity. Neurological: see HP. Psychiatric: Alcohol and marijuana use/abuse. Otherwise, not [id number] review of systems. PHYSICAL EXAMINATION: General appearance is in subacute distress. HEENT: Normocephalic and nontraumatic. Eyes, nose, ears, and throat are unremarkable. Neck is supple. No lymphadenopathy. No crepitus. Cardiovascular: S1, S2, regular rate and rhythm. Pulmonary: Seemed clear to auscultation bilaterally. Abdomen: Bowel sounds are positive. Extremities: No rash, lesions, or edema. No restriction of range of motion NEUROLOGICAL EXAMINATION: Sleepiness but arousable. Not able to communicate well. Not fully oriented to time, place and person. PERRL. EOMI. CN: no acute focal findings. Muscle tone: WNL. Muscle strength: 4+ DTR: 2- UE, 0-1 at knee. Plantar reflex: Neutral response bilaterally Gait: not examined in chair. Sensory exam: no abnormal findings. No cerebellar signs elicited. F-T-N test not performed due to not follow commands. Objective Objective Vital Signs Date Time Temp Pulse Resp B/P (MAP) Pulse Ox O2 Delivery O2 Flow Rate FiO2 12/22/18 11:11 97 Nasal Cannula 2.0 12/22/18 11:07 88 177/12/22/18 10:59 97.9 20 97.9 Intake and Output 12/22/18 07:00 Intake Total 0 ml Balance 0 ml Intake Oral 0 ml Vitals Signs Vitals VS - Last 72 Hours, by Label Date Time Temp Pulse Resp B/P (MAP) Pulse Ox O2 Delivery O2 Flow Rate FiO2 12/22/18 11:11 97 Nasal Cannula 2.0 12/22/18 11:07 88 177/91 12/22/18 10:59 97.9 88 20 177/91 (119) 99 Nasal Cannula 2.0 97.9 12/22/18 07:48 Nasal Cannula 2.0 12/22/18 07:30 99.1 86 28 151/79 (103) 100 Nasal Cannula 2.0 99.1 12/22/18 07:25 98 Nasal Cannula 2.0 12/22/18 05:29 179/98 12/22/18 02:23 98.5 88 20 179/98 (125) 98 Nasal Cannula 2.0 98.5 12/22/18 02:09 Nasal Cannula 2.0 12/22/18 01:39 Nasal Cannula 12/21/18 23:55 98.7 81 20 183/88 (119) 98 Room Air 98.7 12/21/18 22:32 185/96 12/21/18 20:03 90 Room Air 12/21/18 20:00 Nasal Cannula 2.0 12/21/18 19:32 98.0 105 20 185/96 (125) 93 Room Air 98.0 12/21/18 19:20 Nasal Cannula 2.0 12/21/18 18:00 96 Nasal Cannula 2.0 12/21/18 15:44 107 168/85 12/21/18 15:41 96 Nasal Cannula 2.0 12/21/18 15:17 99.0 107 17 168/85 (112) 96 Nasal Cannula 2.0 99.0 12/21/18 15:11 96 Nasal Cannula 2.0 12/21/18 15:08 96 Nasal Cannula 2.0 12/21/18 11:48 98 Nasal Cannula 2.0 12/21/18 11:37 98.8 99 153/88 (109) 98 Nasal Cannula 2.0 98.8 12/21/18 10:56 98 Nasal Cannula 2.0 12/21/18 07:55 97 Nasal Cannula 2.0 12/21/18 07:48 99 163/90 12/21/18 07:45 Nasal Cannula 2.0 12/21/18 07:25 97 Nasal Cannula 2.0 12/21/18 07:04 97 Nasal Cannula 2.0 12/21/18 07:00 98.5 99 17 163/90 (114) 96 Nasal Cannula 2.0 98.5 Laboratory Laboratory Laboratory Tests Test 12/22/18 03:30 12/22/18 03:35 12/22/18 13:11 White Blood Count 10.0 x10^3/uL (4.0-11.0) Red Blood Count 3.82 x10^6/uL (4.30-5.70) Hemoglobin 10.0 g/dL (13.0-17.5) Hematocrit 30.7 % (39.0-53.0) Mean Corpuscular Volume 80 fL (79-100) Mean Corpuscular Hemoglobin 26 pg (25-35) Mean Corpuscular Hemoglobin Concent 33 g/dL (31-37) Red Cell Distribution Width 20.8 % (11.5-14.5) Platelet Count 418 x10^3/uL (140-400) Neutrophils (%) (Auto) 81 % (31-73) Lymphocytes (%) (Auto) 11 % (24-48) Monocytes (%) (Auto) 7 % (0-9) Eosinophils (%) (Auto) 0 % (0-3) Basophils (%) (Auto) 1 % (0-3) Neutrophils # (Auto) 8.1 x10^3/uL (1.8-7.7) Lymphocytes # (Auto) 1.1 x10^3/uL (1.0-4.8) Monocytes # (Auto) 0.7 x10^3/uL (0.0-1.1) Eosinophils # (Auto) 0.0 x10^3/uL (0.0-0.7) Basophils # (Auto) 0.1 x10^3/uL (0.0-0.2) Prothrombin Time 32.4 SEC (11.7-14.0) Prothromb Time International Ratio 3.2 (0.8-1.1) Sodium Level 151 mmol/L (136-145) Potassium Level 2.9 mmol/L (3.5-5.1) Chloride Level 113 mmol/L (98-107) Carbon Dioxide Level 28 mmol/L (21-32) Anion Gap 10 (6-14) Blood Urea Nitrogen 7 mg/dL (8-26) Creatinine 0.8 mg/dL (0.7-1.3) Estimated GFR (Cockcroft-Gault) 99.6 BUN/Creatinine Ratio 9 (6-20) Glucose Level 104 mg/dL (70-99) Calcium Level 8.5 mg/dL (8.5-10.1) Magnesium Level 1.5 mg/dL (1.8-2.4) Total Bilirubin 0.4 mg/dL (0.2-1.0) Aspartate Amino Transf (AST/SGOT) 17 U/L (15-37) Alanine Aminotransferase (ALT/SGPT) 17 U/L (16-63) Alkaline Phosphatase 41 U/L (46-116) Total Protein 6.2 g/dL (6.4-8.2) Albumin 3.0 g/dL (3.4-5.0) Albumin/Globulin Ratio 0.9 (1.0-1.7) Glucose (Fingerstick) 168 mg/dL (70-99) Microbiology 12/20/18 Blood Culture - Preliminary, Resulted NO GROWTH AFTER 1 DAY Medication Medications Current Medications Potassium Chloride/Water 100 ml @ 100 mls/hr Q1H IV Last administered on 12/22/18at 11:03; Start 12/22/18 at 06:00; Stop 12/22/18 at 09:59; Status DC Warfarin Sodium (Coumadin) 1 mg 1X WARF ONCE PO ; Start 12/21/18 at 16:00; Stop 12/21/18 at 16:01; Status DC Comment Review of Relevant I have reviewed the following items robert (where applicable) has been applied. JAMEL BONILLA MD Dec 22, 2018 14:17
[2018-12-22] MEDS ORDERED: IV 1/2 NORMAL SALINE 1,000 ML IV ONE (14:30)
[2018-12-22 15:22] LABS: BARBITURATES NEG (NEG); BENZODIAZEPINES POS (NEG); CANNABINOIDS NEG (NEG); COCAINE NEG (NEG); METHADONE NEG (NEG); OPIATES NEG (NEG); PHENCYCLIDINE NEG (NEG)
[2018-12-22 15:25] LABS: AMPHETAMINE/METHAMPHETAMINE NEG (NEG)
[2018-12-22] MEDS ORDERED: POTASSIUM CHLORIDE 20 MEQ in IV 1/2 NORMAL SALINE 1,000 ML IV ONE (16:00)
--- NOTE | 2018-12-22 17:56 | CARD ---
MR#: [id number] Date of Study: 12/22/2018 Ordering Physician: ANJU HAMILTON, Referring Physician: ANJU HAMILTON, Tech: Jojo Echols APPROVED REPORT EXAM: Two-dimensional and M-mode echocardiogram with Doppler and color Doppler. Other Information HR: 82bpm Technically limited study due to Non-compliant restless patient INDICATION Cardiac Disease: CAD Fever RISK FACTORS Hypertension Hyperlipidemia 2D DIMENSIONS Left Atrium(2D)3.9 (1.6-4.0cm)IVSd1.1 (0.7-1.1cm) Aortic Root(2D)3.5 (2.0-3.7cm)LVDd5.8 (3.9-5.9cm) LVOT Diameter2.0 (1.8-2.4cm)PWd1.2 (0.7-1.1cm) LVDs3.3 (2.5-4.0cm)FS (%) 42.7 % SV119.7 mlLVEF(%)73.1 (>50%) Aortic Valve AoV Peak Juan R.236.0cm/sAoV VTI43.5cm AO Peak GR.22.3mmHgLVOT VTI 13.61cm AO Mean GR.11mmHg Mitral Valve MV E Odpwwrvp107.7cm/sMV DECEL [id number] MV A Rfzxpixt941.3cm/sE/A Ratio1.1 TDI Lateral E' P. V10.04cm/sMedial E' P. V10.30cm/s E/Lateral E'10.8E/Medial E'10.6 Tricuspid Valve TR P. Cdfulpgj330ae/sRAP [id number] TR Peak Gr.39oeYkEAQX91baQj Pulmonary Vein S1 Ozoairpu37.2cm/sS2 Sguvxkyt27.85cm/s D2 Jiyrqgiw95.9cm/sPVa [id number] LEFT VENTRICLE The left ventricle is normal size. There is mild concentric left ventricular hypertrophy. The left ve ntricular systolic function is normal and the ejection fraction is within normal range. EF 55% Unable to determine wall motion accurately due to suboptimal images. Transmitral Doppler flow pattern is Gr fredo II-pseudonormal filling dynamics. RIGHT VENTRICLE The right ventricle is normal size. There is normal right ventricular wall thickness. The right ventr icular systolic function is normal. ATRIA The left atrium size is normal. The right atrium is mildly dilated. The interatrial septum is intact with no evidence for an atrial septal defect or patent foramen ovale as noted on 2-D or Doppler imagi ng. AORTIC VALVE The aortic valve is not well visualized. Doppler and Color Flow revealed no significant aortic regurg itation. There is no significant aortic valvular stenosis. MITRAL VALVE The mitral valve is not well visualized. There is no mitral valve stenosis. Doppler and Color-flow re vealed trace mitral regurgitation. TRICUSPID VALVE The tricuspid valve is not well visualized. Doppler and Color Flow revealed no tricuspid valve regurg itation noted. There is no tricuspid valve stenosis. PULMONIC VALVE The pulmonic valve is not well visualized. Doppler and Color Flow revealed no pulmonic valvular regur gitation. GREAT VESSELS The aortic root is normal in size. The IVC is normal in size and collapses >50% with inspiration. PERICARDIAL EFFUSION There is no evidence of significant pericardial effusion. Critical Notification Critical Value: No <Conclusion> The left ventricular systolic function is normal and the ejection fraction is within normal range. EF 55% Unable to determine wall motion accurately due to suboptimal images. Technically very difficult study, if there is concern for endocarditis or valvular disease or signifi cant cardiac wall motion abnormalities, suggest DONNA. Signed by : Rajiv Herr, Electronically Approved : 12/22/2018 17:55:47
[2018-12-22] MEDS: hydrALAZINE 20 MG/ML VIAL. IVP SCH (18:51)
[2018-12-23] VITALS (8 sets, daily range): BP systolic 150–170; BP diastolic 87–96
[2018-12-23] MEDS: hydrALAZINE 20 MG/ML VIAL. IVP SCH ×4 (02:10→17:54)
[2018-12-23 03:59] LABS: BASO # 0.1 x10^3/uL (0.0-0.2); BASO % 1 % (0-3); EOS # 0.1 x10^3/uL (0.0-0.7); EOS % 1 % (0-3); HEMOGLOBIN 11.6 g/dL (13.0-17.5); LYMPH % 8 % (24-48); MEAN CORPUSCULAR HEMOGLOBIN 26 pg (25-35); MEAN CORPUSCULAR HGB CONC 32 g/dL (31-37); MEAN CORPUSCULAR VOLUME 79 fL (79-100); MONO # 0.9 x10^3/uL (0.0-1.1); MONO % 7 % (0-9); NEUT # 9.9 x10^3/uL (1.8-7.7); NEUT % 83 % (31-73); PLATELET COUNT 469 x10^3/uL (140-400); RED BLOOD COUNT 4.58 x10^6/uL (4.30-5.70); RED CELL DISTRIBUTION WIDTH 21.1 % (11.5-14.5)
[2018-12-23 04:07] LABS: PROTHROMBIN TIME PATIENT 28.7 SEC (11.7-14.0)
[2018-12-23 04:27] LABS: ALBUMIN 3.2 g/dL (3.4-5.0); ALBUMIN/GLOBULIN RATIO 0.9 (1.0-1.7); CALCIUM 8.8 mg/dL (8.5-10.1); CREATININE 0.7 mg/dL (0.7-1.3); GFR 116.2; TOTAL BILIRUBIN 0.4 mg/dL (0.2-1.0); TOTAL PROTEIN 6.6 g/dL (6.4-8.2)
[2018-12-23 04:32] LABS: POTASSIUM 2.8 mmol/L (3.5-5.1)
[2018-12-23] MEDS: POTASSIUM CHLORIDE 10MEQ 100 ML IV SCH ×4 (06:48→14:01)
[2018-12-23] MEDS: ENALAPRILAT 1.25 MG/ML VIAL. IVP SCH ×4 (06:49→22:16)
[2018-12-23] MEDS: AMINO AC 3%/ELECTROLYTE/GLYCER 1,000 ML IV SCH ×2 (06:50→22:17)
[2018-12-23] MEDS: PIPERACILLIN/TAZOBACTAM 3.375 GM in IV NORMAL SALINE 50ML 50 ML IV SCH ×3 (06:50→17:52)
--- NOTE | 2018-12-23 07:48 | RAD ---
CHEST AP ONLY 12/22/2018 2:28 PM INDICATION: Shortness of air COMPARISON: 12/20/2018 TECHNIQUE: Portable frontal view of the chest is provided. FINDINGS: The cardiomediastinal silhouette is similar in appearance. Median sternotomy changes are present. There is bandlike density in the right midlung which is new from the prior examination and may represent subsegmental atelectasis versus pulmonary infiltrate. There are no significant pleural effusions. There is no pulmonary vascular congestion. No pneumothorax. IMPRESSION: New bandlike density in the right midlung which may represent subsegmental atelectasis versus infiltrate. Short-term follow-up radiograph is recommended to ensure resolution. Electronically signed by: Ai Canales MD (12/23/2018 7:45 AM) [facility]
--- NOTE | 2018-12-23 07:54 | PDOC ---
PROGRESS NOTES Chief Complaint Chief Complaint IMPRESSION impression Fall ETOH withdrawal , severe Toxic encephalopathy Altered mental status, slow to improve Tachycardia SEVERE ALCOHOL ABUSE DYSPHAGIA POSSIBLE ASPIRATION 12/23New bandlike density in the right midlung which may represent subsegmental atelectasis versus infiltrate. Short-term follow-up radiograph is recommended to ensure resolution. FEVER HYPERNATREMIA FALL RISK PPN, ///CONT IV ZOSYN 1/2 NS BOLUS X 1 LITER CONSULT Nephrology serum and urine osmolality REPLACE K IV 40MEQ X 1 12/23 D/W FATHER History of Present Illness History of Present Illness 12/22/18 Pt seen and examined bedside still reported to have altered mental status Was resting in BED DW RN; Charts and labs reviewed replace k FAILED SWALLOW TEST POOR PROGNOSIS CHK SERUM OSMOLALITY 36 min pt exam, chart review, > 50% of time spent with exam, chart review, pt care coordination 12/17/18 Pt seen and examined in ICU PT still sedated PEGGY RN that she tried to wean the patient off of Precedex but he continued to be combative so she had to continue the sedation meds Consulted neurology to make sure there isn't other pathology causing his mental status change Charts and labs reviewed NA 143 12/16/18 Pt seen and examined in the ICU Pt is sedated with IV Precedex PEGGY RN Pt was combative in the morning Charts and labs reviewed Na: 140 12/15/18 Pt seen and examined in the ICU Pt's son was seen leaving the room Pt is still sedated with Precedex Pt requested pain medications Chart and labs reviewed Hyponatremia resolved Pt is bradycardic with rate of 50 D/w RN 12/14/18 Pt seen and examined in the ICU Pt still sedated with Precedex INR 1.1 Hyponatremia has resolved PEGGY RN Reviewed chart 12/13/18 Pt seen and examined in the ICU Pt was combative and trying to get out of bed all morning. Pt was given Ativan, Haldol, Benadryl, Zyprexa and finally Fentanyl for patient safety. He was comfortably snoring. Discussed with son who was glad to see the pt finally asleep. PEGGY RN Vitals Vitals Vital Signs Date Time Temp Pulse Resp B/P (MAP) Pulse Ox O2 Delivery O2 Flow Rate FiO2 12/23/18 06:49 105 160/92 12/23/18 03:30 20 97 Nasal Cannula 2.0 12/22/18 23:00 99.4 99.4 Physical Exam Physical Exam GENERAL: confusion HEENT: Pupils are equally round and reactive. Oropharynx is pink and dry. NECK: Supple. LUNGS: Clear to auscultation. HEART: S1, S2. ABDOMEN: Obese, soft, and nontender with bowel sounds present. EXTREMITIES: No gross edema or cyanosis.[place] SKIN: Warm to touch. No signs of rash.some healing scraps NEUROLOGIC: He is confused; mumbles. General: Alert, Cooperative, No acute distress, Other (confused ) Heart: Regular rate, Normal S1, Normal S2, No murmurs, Other (valvular click) Lungs: Clear, Wheezing Abdomen: Soft Extremities: No cyanosis, Other (trace bilateral LE edema ) Skin: No significant lesion Labs LABS DATE OF SERVICE: 12/18/2018 EEG NUMBER: [id number] OBJECTIVE: This is a 58-year-old male patient with history of prolonged mental status changes after alcohol intoxication and withdrawal. EEG was requested to evaluate cerebral activity and help rule out subclinical seizures. METHODS: Twenty electrodes were applied according to the international 10-20 electrode placement system. EKG monitoring, hyperventilation, intermittent photic stimulation, monopolar and bipolar montages are routinely utilized. The record was obtained on a digital system with video monitoring. FINDINGS: 1. Background: The patient was recorded in the awake, drowsy, and sleep states. The overall background amplitude is 10-20 microvolts. A posterior dominant rhythm of 8-10 Hz is observed. Fast activity in the beta frequency is also noted. 2. Abnormalities: No specific epileptiform discharge or electrographic seizure is seen. No focal or diffuse slowing. 3. Activation: Hyperventilation was not performed because the patient did not follow the commands. Intermittent photic stimulation was performed with photic driving. No specific epileptiform discharge or electrographic-seizure induced. IMPRESSION: This EEG is a borderline study for the awake, drowsy, and sleep states. No focal, lateralizing, specific epileptiform discharge or electrographic seizure is seen. JAMEL BONILLA MD CHEST AP ONLY 12/22/2018 2:28 PM INDICATION: Shortness of air COMPARISON: 12/20/2018 TECHNIQUE: Portable frontal view of the chest is provided. FINDINGS: The cardiomediastinal silhouette is similar in appearance. Median sternotomy changes are present. There is bandlike density in the right midlung which is new from the prior examination and may represent subsegmental atelectasis versus pulmonary infiltrate. There are no significant pleural effusions. There is no pulmonary vascular congestion. No pneumothorax. IMPRESSION: New bandlike density in the right midlung which may represent subsegmental atelectasis versus infiltrate. Short-term follow-up radiograph is recommended to ensure resolution. Electronically signed by: Anna Scherer MD (12/23/2018 7:45 AM) [facility] DICTATED and SIGNED BY: ANNA SCHERER MD DATE: 12/23/18 0745 Laboratory Tests Test 12/22/18 13:11 12/22/18 14:45 12/23/18 03:05 Glucose (Fingerstick) 168 mg/dL (70-99) Urine Opiates Screen Neg (NEG) Urine Methadone Screen Neg (NEG) Urine Barbiturates Neg (NEG) Urine Phencyclidine Screen Neg (NEG) Urine Amphetamine/Methamphetamine Neg (NEG) Urine Benzodiazepines Screen Pos (NEG) Urine Cocaine Screen Neg (NEG) Urine Cannabinoids Screen Neg (NEG) Urine Ethyl Alcohol Neg (NEG) White Blood Count 12.0 x10^3/uL (4.0-11.0) Red Blood Count 4.58 x10^6/uL (4.30-5.70) Hemoglobin 11.6 g/dL (13.0-17.5) Hematocrit 36.0 % (39.0-53.0) Mean Corpuscular Volume 79 fL (79-100) Mean Corpuscular Hemoglobin 26 pg (25-35) Mean Corpuscular Hemoglobin Concent 32 g/dL (31-37) Red Cell Distribution Width 21.1 % (11.5-14.5) Platelet Count 469 x10^3/uL (140-400) Neutrophils (%) (Auto) 83 % (31-73) Lymphocytes (%) (Auto) 8 % (24-48) Monocytes (%) (Auto) 7 % (0-9) Eosinophils (%) (Auto) 1 % (0-3) Basophils (%) (Auto) 1 % (0-3) Neutrophils # (Auto) 9.9 x10^3/uL (1.8-7.7) Lymphocytes # (Auto) 1.0 x10^3/uL (1.0-4.8) Monocytes # (Auto) 0.9 x10^3/uL (0.0-1.1) Eosinophils # (Auto) 0.1 x10^3/uL (0.0-0.7) Basophils # (Auto) 0.1 x10^3/uL (0.0-0.2) Prothrombin Time 28.7 SEC (11.7-14.0) Prothromb Time International Ratio 2.7 (0.8-1.1) Sodium Level 147 mmol/L (136-145) Potassium Level 2.8 mmol/L (3.5-5.1) Chloride Level 107 mmol/L (98-107) Carbon Dioxide Level 26 mmol/L (21-32) Anion Gap 14 (6-14) Blood Urea Nitrogen 9 mg/dL (8-26) Creatinine 0.7 mg/dL (0.7-1.3) Estimated GFR (Cockcroft-Gault) 116.2 BUN/Creatinine Ratio 13 (6-20) Glucose Level 108 mg/dL (70-99) Calcium Level 8.8 mg/dL (8.5-10.1) Total Bilirubin 0.4 mg/dL (0.2-1.0) Aspartate Amino Transf (AST/SGOT) 20 U/L (15-37) Alanine Aminotransferase (ALT/SGPT) 19 U/L (16-63) Alkaline Phosphatase 49 U/L (46-116) Total Protein 6.6 g/dL (6.4-8.2) Albumin 3.2 g/dL (3.4-5.0) Albumin/Globulin Ratio 0.9 (1.0-1.7) Assessment and Plan Assessmemt and Plan Problems Medical Problems: (1) Alcohol abuse Status: Acute (2) Closed head injury Status: Acute Comment Review of Relevant I have reviewed the following items robert (where applicable) has been applied. Labs Laboratory Tests Test 12/22/18 03:30 12/22/18 03:35 12/22/18 13:11 12/22/18 14:45 White Blood Count 10.0 x10^3/uL (4.0-11.0) Red Blood Count 3.82 x10^6/uL (4.30-5.70) Hemoglobin 10.0 g/dL (13.0-17.5) Hematocrit 30.7 % (39.0-53.0) Mean Corpuscular Volume 80 fL (79-100) Mean Corpuscular Hemoglobin 26 pg (25-35) Mean Corpuscular Hemoglobin Concent 33 g/dL (31-37) Red Cell Distribution Width 20.8 % (11.5-14.5) Platelet Count 418 x10^3/uL (140-400) Neutrophils (%) (Auto) 81 % (31-73) Lymphocytes (%) (Auto) 11 % (24-48) Monocytes (%) (Auto) 7 % (0-9) Eosinophils (%) (Auto) 0 % (0-3) Basophils (%) (Auto) 1 % (0-3) Neutrophils # (Auto) 8.1 x10^3/uL (1.8-7.7) Lymphocytes # (Auto) 1.1 x10^3/uL (1.0-4.8) Monocytes # (Auto) 0.7 x10^3/uL (0.0-1.1) Eosinophils # (Auto) 0.0 x10^3/uL (0.0-0.7) Basophils # (Auto) 0.1 x10^3/uL (0.0-0.2) Prothrombin Time 32.4 SEC (11.7-14.0) Prothromb Time International Ratio 3.2 (0.8-1.1) Sodium Level 151 mmol/L (136-145) Potassium Level 2.9 mmol/L (3.5-5.1) Chloride Level 113 mmol/L (98-107) Carbon Dioxide Level 28 mmol/L (21-32) Anion Gap 10 (6-14) Blood Urea Nitrogen 7 mg/dL (8-26) Creatinine 0.8 mg/dL (0.7-1.3) Estimated GFR (Cockcroft-Gault) 99.6 BUN/Creatinine Ratio 9 (6-20) Glucose Level 104 mg/dL (70-99) Calcium Level 8.5 mg/dL (8.5-10.1) Magnesium Level 1.5 mg/dL (1.8-2.4) Total Bilirubin 0.4 mg/dL (0.2-1.0) Aspartate Amino Transf (AST/SGOT) 17 U/L (15-37) Alanine Aminotransferase (ALT/SGPT) 17 U/L (16-63) Alkaline Phosphatase 41 U/L (46-116) Total Protein 6.2 g/dL (6.4-8.2) Albumin 3.0 g/dL (3.4-5.0) Albumin/Globulin Ratio 0.9 (1.0-1.7) Glucose (Fingerstick) 168 mg/dL (70-99) Urine Opiates Screen Neg (NEG) Urine Methadone Screen Neg (NEG) Urine Barbiturates Neg (NEG) Urine Phencyclidine Screen Neg (NEG) Urine Amphetamine/Methamphetamine Neg (NEG) Urine Benzodiazepines Screen Pos (NEG) Urine Cocaine Screen Neg (NEG) Urine Cannabinoids Screen Neg (NEG) Urine Ethyl Alcohol Neg (NEG) Test 12/23/18 03:05 White Blood Count 12.0 x10^3/uL (4.0-11.0) Red Blood Count 4.58 x10^6/uL (4.30-5.70) Hemoglobin 11.6 g/dL (13.0-17.5) Hematocrit 36.0 % (39.0-53.0) Mean Corpuscular Volume 79 fL (79-100) Mean Corpuscular Hemoglobin 26 pg (25-35) Mean Corpuscular Hemoglobin Concent 32 g/dL (31-37) Red Cell Distribution Width 21.1 % (11.5-14.5) Platelet Count 469 x10^3/uL (140-400) Neutrophils (%) (Auto) 83 % (31-73) Lymphocytes (%) (Auto) 8 % (24-48) Monocytes (%) (Auto) 7 % (0-9) Eosinophils (%) (Auto) 1 % (0-3) Basophils (%) (Auto) 1 % (0-3) Neutrophils # (Auto) 9.9 x10^3/uL (1.8-7.7) Lymphocytes # (Auto) 1.0 x10^3/uL (1.0-4.8) Monocytes # (Auto) 0.9 x10^3/uL (0.0-1.1) Eosinophils # (Auto) 0.1 x10^3/uL (0.0-0.7) Basophils # (Auto) 0.1 x10^3/uL (0.0-0.2) Prothrombin Time 28.7 SEC (11.7-14.0) Prothromb Time International Ratio 2.7 (0.8-1.1) Sodium Level 147 mmol/L (136-145) Potassium Level 2.8 mmol/L (3.5-5.1) Chloride Level 107 mmol/L (98-107) Carbon Dioxide Level 26 mmol/L (21-32) Anion Gap 14 (6-14) Blood Urea Nitrogen 9 mg/dL (8-26) Creatinine 0.7 mg/dL (0.7-1.3) Estimated GFR (Cockcroft-Gault) 116.2 BUN/Creatinine Ratio 13 (6-20) Glucose Level 108 mg/dL (70-99) Calcium Level 8.8 mg/dL (8.5-10.1) Total Bilirubin 0.4 mg/dL (0.2-1.0) Aspartate Amino Transf (AST/SGOT) 20 U/L (15-37) Alanine Aminotransferase (ALT/SGPT) 19 U/L (16-63) Alkaline Phosphatase 49 U/L (46-116) Total Protein 6.6 g/dL (6.4-8.2) Albumin 3.2 g/dL (3.4-5.0) Albumin/Globulin Ratio 0.9 (1.0-1.7) Laboratory Tests Test 12/22/18 13:11 12/22/18 14:45 12/23/18 03:05 Glucose (Fingerstick) 168 mg/dL (70-99) Urine Opiates Screen Neg (NEG) Urine Methadone Screen Neg (NEG) Urine Barbiturates Neg (NEG) Urine Phencyclidine Screen Neg (NEG) Urine Amphetamine/Methamphetamine Neg (NEG) Urine Benzodiazepines Screen Pos (NEG) Urine Cocaine Screen Neg (NEG) Urine Cannabinoids Screen Neg (NEG) Urine Ethyl Alcohol Neg (NEG) White Blood Count 12.0 x10^3/uL (4.0-11.0) Red Blood Count 4.58 x10^6/uL (4.30-5.70) Hemoglobin 11.6 g/dL (13.0-17.5) Hematocrit 36.0 % (39.0-53.0) Mean Corpuscular Volume 79 fL (79-100) Mean Corpuscular Hemoglobin 26 pg (25-35) Mean Corpuscular Hemoglobin Concent 32 g/dL (31-37) Red Cell Distribution Width 21.1 % (11.5-14.5) Platelet Count 469 x10^3/uL (140-400) Neutrophils (%) (Auto) 83 % (31-73) Lymphocytes (%) (Auto) 8 % (24-48) Monocytes (%) (Auto) 7 % (0-9) Eosinophils (%) (Auto) 1 % (0-3) Basophils (%) (Auto) 1 % (0-3) Neutrophils # (Auto) 9.9 x10^3/uL (1.8-7.7) Lymphocytes # (Auto) 1.0 x10^3/uL (1.0-4.8) Monocytes # (Auto) 0.9 x10^3/uL (0.0-1.1) Eosinophils # (Auto) 0.1 x10^3/uL (0.0-0.7) Basophils # (Auto) 0.1 x10^3/uL (0.0-0.2) Prothrombin Time 28.7 SEC (11.7-14.0) Prothromb Time International Ratio 2.7 (0.8-1.1) Sodium Level 147 mmol/L (136-145) Potassium Level 2.8 mmol/L (3.5-5.1) Chloride Level 107 mmol/L (98-107) Carbon Dioxide Level 26 mmol/L (21-32) Anion Gap 14 (6-14) Blood Urea Nitrogen 9 mg/dL (8-26) Creatinine 0.7 mg/dL (0.7-1.3) Estimated GFR (Cockcroft-Gault) 116.2 BUN/Creatinine Ratio 13 (6-20) Glucose Level 108 mg/dL (70-99) Calcium Level 8.8 mg/dL (8.5-10.1) Total Bilirubin 0.4 mg/dL (0.2-1.0) Aspartate Amino Transf (AST/SGOT) 20 U/L (15-37) Alanine Aminotransferase (ALT/SGPT) 19 U/L (16-63) Alkaline Phosphatase 49 U/L (46-116) Total Protein 6.6 g/dL (6.4-8.2) Albumin 3.2 g/dL (3.4-5.0) Albumin/Globulin Ratio 0.9 (1.0-1.7) Microbiology 12/20/18 Blood Culture - Preliminary, Resulted NO GROWTH AFTER 2 DAYS 12/20/18 Urine Culture - Final, Complete 12/20/18 Urine Culture Result 1 (AMARA) - Final, Complete Medications Current Medications Fentanyl Citrate (Fentanyl 2ml Vial) 50 mcg 1X ONCE IV Last administered on 12/10/18 20:03; Start 12/10/18 at 19:15; Stop 12/10/18 at 19:16; Status DC Iohexol (Omnipaque 300 Mg/ml) 75 ml 1X ONCE IV Last administered on 12/10/18at 19:43; Start 12/10/18 at 19:15; Stop 12/10/18 at 19:16; Status DC Sodium Chloride 1,000 ml @ 1,000 mls/hr 1X ONCE IV Last administered on 12/10/18at 19:45; Start 12/10/18 at 19:45; Stop 12/10/18 at 20:44; Status DC Morphine Sulfate (Morphine Sulfate) 2 mg PRN Q2HR PRN IV PAIN Last administered on 12/11/18 12:03; Start 12/10/18 at 20:15; Stop 12/11/18 at 20:14; Status DC Sodium Chloride 1,000 ml @ 100 mls/hr Q10H IV Last administered on 12/11/18at 08:10; Start 12/10/18 at 20:07; Stop 12/11/18 at 12:21; Status DC Diphtheria/ Tetanus/Acell Pertussis (Boostrix) 0.5 ml ONCE ONCE VAX IM Last administered on 12/10/18at 21:07; Start 12/10/18 at 20:15; Stop 12/10/18 at 20:16; Status DC Ondansetron HCl (Zofran) 4 mg PRN Q6HRS PRN IV NAUSEA/VOMITING 1ST CHOICE Last administered on 12/21/18 03:27; Start 12/11/18 at 05:30 Multivitamins (Thera M Plus) 1 tab DAILY PO Last administered on 12/12/18at 08:14; Start 12/11/18 at 09:00; Stop 12/13/18 at 11:25; Status DC Folic Acid (Folic Acid) 1 mg DAILY PO Last administered on 12/12/18 08:14; Start 12/11/18 at 09:00; Stop 12/13/18 at 11:25; Status DC Chlordiazepoxide (Librium) 50 mg PRN Q1HR PRN PO For CIWA 8-14 2ND CHOICE Last administered on 12/18/18 18:03; Start 12/11/18 at 05:30 Chlordiazepoxide (Librium) 100 mg PRN Q1HR PRN PO For CIWA 15+ 2ND CHOICE Last administered on 12/13/18 01:11; Start 12/11/18 at 05:30 Lorazepam (Ativan) 4 mg PRN Q1HR PRN PO For CIWA 8-14 Last administered on 12/13/18 02:48; Start 12/11/18 at 05:30 Lorazepam (Ativan) 8 mg PRN Q1HR PRN PO For CIWA 15 or greater; Start 12/11/18 at 05:30 Lorazepam (Ativan Inj) 2 mg PRN Q1HR PRN IV For CIWA 8-14 Last administered on 12/22/18 05:27; Start 12/11/18 at 05:30 Lorazepam (Ativan Inj) 4 mg PRN Q1HR PRN IV For CIWA 15 or greater Last administered on 12/20/18 07:50; Start 12/11/18 at 05:30 Haloperidol Lactate (Haldol Inj) 5 mg PRN Q4HRS PRN IVP Hallucinat ns,Confusn,Delirium Last administered on 12/19/18 06:04; Start 12/11/18 at 05:30 Diphenhydramine HCl (Benadryl) 25 mg PRN Q15MIN PRN IVP EPS symptoms 2'Haldol admin Last administered on 12/18/18 03:44; Start 12/11/18 at 05:30 Clonidine HCl (Catapres) 0.1 mg PRN Q1HR PRN PO SBP > 180 or DBP > 100, MRX3; Start 12/11/18 at 05:30 Sodium Chloride 1,000 ml @ 60 mls/hr [id number] IV Last administered on 10/6/19at 07:26; Start 12/11/18 at 13:00; Stop 12/22/18 at 14:53; Status DC Sodium Chloride 150 ml @ 50 mls/hr 1X ONCE IV Last administered on 12/11/18at 13:48; Start 12/11/18 at 13:00; Stop 12/11/18 at 15:59; Status DC Lisinopril (Prinivil) 20 mg DAILY PO Last administered on 12/19/18at 08:00; Start 12/11/18 at 14:00; Stop 12/21/18 at 15:19; Status DC Oxycodone/ Acetaminophen (Percocet 7.5/ 325) 1 tab PRN Q6HRS PRN PO MODERATE TO SEVERE PAIN Last administered on 12/19/18at 06:19; Start 12/11/18 at 13:30 Calcium Carbonate/ Glycine (Oscal) 500 mg TIDAFTMEAL PO Last administered on 12/19/18at 17:22; Start 12/12/18 at 13:00 Ziprasidone (Geodon Im) 20 mg 1X ONCE IM ; Start 12/13/18 at 05:00; Stop 12/13/18 at 18:51; Status DC Lorazepam 100 mg/ Sodium Chloride 100 ml @ 2 mls/hr CONT PRN IV SEDATION Last administered on 12/13/18at 19:56; Start 12/13/18 at 07:00; Stop 12/18/18 at 16:33; Status DC Olanzapine (ZyPREXA IM) 10 mg PRN Q8HRS PRN IM AGITATION Last administered on 12/19/18at 00:05; Start 12/13/18 at 08:30 Olanzapine (ZyPREXA IM) 10 mg STK-MED ONCE IM ; Start 12/13/18 at 08:37; Stop 12/13/18 at 08:38; Status DC Fentanyl Citrate (Fentanyl 2ml Vial) 75 mcg 1X ONCE IV ; Start 12/13/18 at 09:45; Stop 12/13/18 at 19:20; Status DC Fentanyl Citrate (Fentanyl 2ml Vial) 100 mcg STK-MED ONCE .ROUTE ; Start 12/13/18 at 09:47; Stop 12/13/18 at 09:48; Status DC Fentanyl Citrate (Fentanyl 2ml Vial) 75 mcg PRN Q30MIN PRN IV PAIN Last administered on 12/22/18at 01:39; Start 12/13/18 at 10:00 Multivitamins 10 ml/Thiamine HCl 100 mg/Folic Acid 1 mg/Sodium Chloride 1,011.2 ml @ 100 mls/ hr DAILY IV Last administered on 12/18/18at 08:55; Start 12/14/18 at 12:00; Stop 12/18/18 at 19:07; Status DC Enoxaparin Sodium (Lovenox 80mg Syringe) 80 mg Q12HR SQ Last administered on 12/21/18at 07:50; Start 12/13/18 at 14:30; Stop 12/21/18 at 12:56; Status DC Warfarin Sodium (Coumadin Per Pharmacy) 1 each PRN DAILY PRN MC SEE COMMENTS Last administered on 12/22/18at 15:04; Start 12/13/18 at 14:15 Warfarin Sodium (Coumadin) 7.5 mg 1X WARF ONCE PO ; Start 12/13/18 at 16:00; Stop 12/13/18 at 16:01; Status DC Nicotine (Nicoderm Cq 21mg) 1 patch DAILY TD Last administered on 12/22/18at 09:46; Start 12/14/18 at 09:00 Dexmedetomidine HCl 400 mcg/ Sodium Chloride 100 ml @ 0 mls/hr CONT PRN IV PER PROTOCOL Last administered on 12/18/18 00:12; Start 12/14/18 at 01:45; Stop 12/18/18 at 16:33; Status DC Sodium Chloride 500 ml @ 500 mls/hr 1X PRN PRN IV SEE COMMENTS; Start 12/14/18 at 01:45; Stop 12/20/18 at 11:56; Status DC Atropine Sulfate (ATROPINE 0.5mg SYRINGE) 0.5 mg PRN Q5MIN PRN IV SEE COMMENTS; Start 12/14/18 at 01:45; Stop 12/20/18 at 11:55; Status DC Nicotine (Nicoderm Cq 21mg) 1 patch STK-MED ONCE TD ; Start 12/14/18 at 01:57; Stop 12/14/18 at 01:57; Status DC Lorazepam (Ativan) 1 mg BID PO Last administered on 12/19/18at 08:00; Start 12/14/18 at 09:00 Warfarin Sodium (Coumadin) 5 mg DAILY16 PO ; Start 12/14/18 at 16:00; Stop 12/14/18 at 09:21; Status DC Warfarin Sodium (Coumadin) 7.5 mg 1X WARF ONCE PO ; Start 12/14/18 at 16:00; Stop 12/14/18 at 16:01; Status DC Enalaprilat (Vasotec Inj) 1.25 mg Q8HRS IVP Last administered on 12/23/18at 06:49; Start 12/14/18 at 15:00 Nicardipine HCl 50 mg/Sodium Chloride 250 ml @ 25 mls/hr CONT PRN IV SEE I/O RECORD Last administered on 12/16/18at 09:58; Start 12/14/18 at 17:45; Stop 12/18/18 at 16:33; Status DC Nicardipine HCl 50 mg/Sodium Chloride 250 ml @ 25 mls/hr CONT PRN IV SEE I/O RECORD; Start 12/14/18 at 18:00; Status UNV Warfarin Sodium (Coumadin) 7.5 mg 1X WARF ONCE PO ; Start 12/15/18 at 16:00; Stop 12/15/18 at 16:01; Status DC Warfarin Sodium (Coumadin - No Dose Today) 1 each 1X WARF ONCE MC ; Start 12/16/18 at 16:00; Stop 12/16/18 at 16:01; Status DC Warfarin Sodium (Coumadin) 7.5 mg 1X WARF ONCE PO Last administered on 12/18/18at 08:54; Start 12/17/18 at 16:00; Stop 12/17/18 at 16:01; Status DC Ceftriaxone Sodium (Rocephin) 1 gm Q24H IVP Last administered on 12/20/18at 12:08; Start 12/18/18 at 12:30; Stop 12/20/18 at 15:14; Status DC Metoprolol Tartrate (Lopressor) 25 mg BID PO Last administered on 12/19/18at 08:01; Start 12/18/18 at 12:30 Acetaminophen/ Codeine Phosphate (Tylenol #3) 1 tab PRN Q6HRS PRN PO PAIN MILD TO MOD; Start 12/18/18 at 12:00; Stop 12/18/18 at 12:55; Status DC Lactobacillus Rhamnosus (Culturelle) 1 cap BID PO Last administered on 12/19/18at 08:00; Start 12/18/18 at 21:00 Acetaminophen (Tylenol) 650 mg PRN Q6HRS PRN PO FEVER Last administered on 12/19/18 17:23; Start 12/18/18 at 13:00 Warfarin Sodium (Coumadin) 7.5 mg 1X WARF ONCE PO Last administered on 12/18/18 18:03; Start 12/18/18 at 16:00; Stop 12/18/18 at 16:11; Status DC Albuterol/ Ipratropium (Duoneb) 3 ml 1X ONCE NEB Last administered on 12/19/18 07:15; Start 12/19/18 at 07:15; Stop 12/19/18 at 07:16; Status DC Ziprasidone (Geodon Im) 10 mg 1X ONCE IM Last administered on 12/19/18 07:42; Start 12/19/18 at 07:15; Stop 12/19/18 at 07:16; Status DC Warfarin Sodium (Coumadin) 7.5 mg 1X WARF ONCE PO Last administered on 12/19/18 17:23; Start 12/19/18 at 16:00; Stop 12/19/18 at 16:01; Status DC Potassium Chloride (Klor-Con) 40 meq 1X ONCE PO Last administered on 12/19/18 16:12; Start 12/19/18 at 14:00; Stop 12/19/18 at 14:01; Status DC Potassium Chloride (Klor-Con) 20 meq DAILYWBKFT PO ; Start 12/20/18 at 08:00 Doxycycline Hyclate (Vibra-Tab) 100 mg BID PO Last administered on 12/19/18 17:22; Start 12/19/18 at 17:30; Stop 12/19/18 at 17:57; Status DC Doxycycline Hyclate 100 mg/ Dextrose 100 ml @ 50 mls/hr Q12HR IV Last administered on 12/22/18 22:22; Start 12/19/18 at 21:00 Metoprolol Tartrate (Lopressor Vial) 5 mg PRN Q6HRS PRN IVP HYPERTENSION Last administered on 12/21/18 07:48; Start 12/19/18 at 18:00 Scopolamine (Transderm-Scop) 1 patch Q3DAYS TD Last administered on 10/5/19at 07:51; Start 12/20/18 at 09:00 Potassium Chloride/Water 100 ml @ 100 mls/hr Q1H IV Last administered on 12/20/18at 10:36; Start 12/20/18 at 06:00; Stop 12/20/18 at 09:59; Status DC Potassium Chloride (Klor-Con) 40 meq 1X ONCE PO ; Start 12/20/18 at 08:00; Stop 12/20/18 at 08:01; Status DC Acetaminophen (Tylenol Supp) 650 mg PRN Q6HRS PRN HI MILD PAIN / TEMP Last administered on 12/20/18at 14:59; Start 12/20/18 at 07:15 Warfarin Sodium (Coumadin) 7.5 mg 1X WARF ONCE PO ; Start 12/20/18 at 16:00; Stop 12/20/18 at 16:01; Status DC Hydralazine HCl (Apresoline Inj) 10 mg PRN Q4HRS PRN IVP ELEVATED BP, SEE COMMENTS Last administered on 12/22/18at 11:07; Start 12/20/18 at 14:30 Potassium Chloride (Klor-Con) 40 meq 1X ONCE PO ; Start 12/20/18 at 14:30; Stop 12/20/18 at 14:41; Status DC Potassium Chloride (Klor-Con) 20 meq [id number] PO ; Start 12/21/18 at 08:00 Albuterol/ Ipratropium (Duoneb) 3 ml RTQID NEB Last administered on 12/22/18at 20:40; Start 12/20/18 at 16:00 Piperacillin Sod/ Tazobactam Sod 3.375 gm/Sodium Chloride 50 ml @ 100 mls/hr Q6HRS IV Last administered on 12/23/18at 06:50; Start 12/20/18 at 16:00 Amino Acids/ Glycerin/ Electrolytes 1,000 ml @ 75 mls/hr [id number] IV Last administered on 12/23/18at 06:50; Start 12/21/18 at 13:00 Warfarin Sodium (Coumadin) 1 mg 1X WARF ONCE PO ; Start 12/21/18 at 16:00; Stop 12/21/18 at 16:01; Status DC Sodium Chloride 1,000 ml @ 75 mls/hr 1X ONCE IV Last administered on 12/21/18at 13:49; Start 12/21/18 at 13:15; Stop 12/22/18 at 02:34; Status DC Potassium Chloride/Water 100 ml @ 100 mls/hr Q1H IV Last administered on 12/22/18at 11:03; Start 12/22/18 at 06:00; Stop 12/22/18 at 09:59; Status DC Sodium Chloride 1,000 ml @ 75 mls/hr 1X ONCE IV Last administered on 12/22/18at 14:49; Start 12/22/18 at 14:30; Stop 12/23/18 at 03:49; Status DC Potassium Chloride 20 meq/ Sodium Chloride 1,010 ml @ 75 mls/hr 1X ONCE IV Last administered on 12/22/18at 17:51; Start 12/22/18 at 16:00; Stop 12/23/18 at 05:27; Status DC Hydralazine HCl (Apresoline Inj) 10 mg Q6HRS IVP Last administered on 12/23/18at 06:49; Start 12/22/18 at 18:00 Potassium Chloride/Water 100 ml @ 100 mls/hr Q1H IV Last administered on 12/23/18at 06:48; Start 12/23/18 at 06:00; Stop 12/23/18 at 09:59 Active Scripts Active Reported Lorazepam 1 Mg Tablet 1 Tab PO BID Percocet 7.5-325 Mg Tablet (Oxycodone/Acetaminophen) 1 Each Tablet 1 Tab PO PRN Q6HRS PRN Coumadin (Warfarin Sodium) 5 Mg Tablet 1 Tab PO DAILY Lisinopril 20 Mg Tablet 1 Tab PO DAILY Vitals/I & O Vital Sign - Last 24 Hours 12/22/18 12/22/18 12/22/18 12/22/18 10:59 11:07 11:11 14:48 Temp 97.9 97.9 Pulse 88 88 87 Resp 20 B/P (MAP) 177/91 (119) 177/91 166/85 Pulse Ox 99 97 O2 Delivery Nasal Cannula Nasal Cannula O2 Flow Rate 2.0 2.0 12/22/18 12/22/18 12/22/18 12/22/18 15:04 15:27 18:49 18:51 Temp 99.5 99.3 99.5 99.3 Pulse 90 86 86 Resp 20 22 B/P (MAP) 173/92 (119) 169/85 (113) 169/85 Pulse Ox 98 98 100 O2 Delivery Room Air Nasal Cannula Nasal Cannula O2 Flow Rate 98.0 2.0 2.0 12/22/18 12/22/18 12/22/18 12/22/18 19:00 20:14 20:42 21:00 Temp 98.0 98.0 Pulse 94 94 Resp 17 B/P (MAP) 152/84 (106) 152/84 Pulse Ox 97 96 O2 Delivery Nasal Cannula Nasal Cannula Nasal Cannula O2 Flow Rate 2.0 2.0 2.0 12/22/18 12/23/18 12/23/18 12/23/18 23:00 00:00 02:10 03:30 Temp 99.4 99.4 Pulse 104 94 94 105 Resp 17 20 B/P (MAP) 179/95 (123) 152/84 152/84 160/92 (114) Pulse Ox 97 97 O2 Delivery Nasal Cannula Nasal Cannula O2 Flow Rate 2.0 2.0 12/23/18 12/23/18 06:49 06:49 Pulse 105 105 B/P (MAP) 160/92 160/92 Intake and Output 12/22/18 12/22/18 12/23/18 15:00 23:00 07:00 Intake Total 450 ml 225 ml Output Total 1400 ml 900 ml Balance 450 ml -1175 ml -900 ml MER DAVIES MD Dec 23, 2018 07:54
--- NOTE | 2018-12-23 07:59 | PDOC ---
Infectious Disease Note Subjective Subjective Some confusion. Still Some cough and sinus congestion but no pain No F/C/S/N ROS ROS o/w neg Vital Sign Vital Signs Vital Signs Date Time Temp Pulse Resp B/P (MAP) Pulse Ox O2 Delivery O2 Flow Rate FiO2 12/23/18 06:49 105 160/92 12/23/18 03:30 20 97 Nasal Cannula 2.0 12/22/18 23:00 99.4 99.4 Physical Exam PHYSICAL EXAM GENERAL: confusion but answering questions HEENT: Pupils are equally round and reactive. Oropharynx is pink and dry. NECK: Supple. LUNGS: Clear to auscultation. HEART: S1, S2. ABDOMEN: Obese, soft, and nontender with bowel sounds present. EXTREMITIES: No gross edema or cyanosis. Mittens SKIN: Warm to touch. No signs of rash.some healing scraps NEUROLOGIC: He is confused; mumbles.- follows simple commands Labs Lab Laboratory Tests Test 12/22/18 13:11 12/22/18 14:45 12/23/18 03:05 Glucose (Fingerstick) 168 mg/dL (70-99) Urine Opiates Screen Neg (NEG) Urine Methadone Screen Neg (NEG) Urine Barbiturates Neg (NEG) Urine Phencyclidine Screen Neg (NEG) Urine Amphetamine/Methamphetamine Neg (NEG) Urine Benzodiazepines Screen Pos (NEG) Urine Cocaine Screen Neg (NEG) Urine Cannabinoids Screen Neg (NEG) Urine Ethyl Alcohol Neg (NEG) White Blood Count 12.0 x10^3/uL (4.0-11.0) Red Blood Count 4.58 x10^6/uL (4.30-5.70) Hemoglobin 11.6 g/dL (13.0-17.5) Hematocrit 36.0 % (39.0-53.0) Mean Corpuscular Volume 79 fL (79-100) Mean Corpuscular Hemoglobin 26 pg (25-35) Mean Corpuscular Hemoglobin Concent 32 g/dL (31-37) Red Cell Distribution Width 21.1 % (11.5-14.5) Platelet Count 469 x10^3/uL (140-400) Neutrophils (%) (Auto) 83 % (31-73) Lymphocytes (%) (Auto) 8 % (24-48) Monocytes (%) (Auto) 7 % (0-9) Eosinophils (%) (Auto) 1 % (0-3) Basophils (%) (Auto) 1 % (0-3) Neutrophils # (Auto) 9.9 x10^3/uL (1.8-7.7) Lymphocytes # (Auto) 1.0 x10^3/uL (1.0-4.8) Monocytes # (Auto) 0.9 x10^3/uL (0.0-1.1) Eosinophils # (Auto) 0.1 x10^3/uL (0.0-0.7) Basophils # (Auto) 0.1 x10^3/uL (0.0-0.2) Prothrombin Time 28.7 SEC (11.7-14.0) Prothromb Time International Ratio 2.7 (0.8-1.1) Sodium Level 147 mmol/L (136-145) Potassium Level 2.8 mmol/L (3.5-5.1) Chloride Level 107 mmol/L (98-107) Carbon Dioxide Level 26 mmol/L (21-32) Anion Gap 14 (6-14) Blood Urea Nitrogen 9 mg/dL (8-26) Creatinine 0.7 mg/dL (0.7-1.3) Estimated GFR (Cockcroft-Gault) 116.2 BUN/Creatinine Ratio 13 (6-20) Glucose Level 108 mg/dL (70-99) Calcium Level 8.8 mg/dL (8.5-10.1) Total Bilirubin 0.4 mg/dL (0.2-1.0) Aspartate Amino Transf (AST/SGOT) 20 U/L (15-37) Alanine Aminotransferase (ALT/SGPT) 19 U/L (16-63) Alkaline Phosphatase 49 U/L (46-116) Total Protein 6.6 g/dL (6.4-8.2) Albumin 3.2 g/dL (3.4-5.0) Albumin/Globulin Ratio 0.9 (1.0-1.7) Micro Microbiology 12/20/18 Blood Culture - Preliminary, Resulted NO GROWTH AFTER 1 DAY Objective Assessment Fever ? aspiration, ETOH withdrawal, infection - better Leukocytosis - ? reactive Suspected aspiration Sinusitis Dysphagia failed bedside swallow today Encephalopathy - improved Hyponatremia now NA 150 Alcohol withdrawal s/p fall while intoxicated ? seizure A-fib on warfarin Valvular disorder CAD Plan Plan of Care Began Zosyn 12/20, continue for now Add Procalcitonin this am If worsens will re-cult and broaden abx Monitor WBC - in am BC neg so far Maintain aspiration precautions Electrolytes per primary D/w nursing ANJU HAMILTON MD Dec 23, 2018 07:59
[2018-12-23] MEDS: POTASSIUM CHLORIDE 20 MEQ TABLET.ER. PO SCH ×2 (08:00)
[2018-12-23] MEDS: SCOPOLAMINE 1.5MG PATCH. TD SCH (08:33)
[2018-12-23] MEDS: NICOTINE 21MG PATCH. TD SCH (08:34)
[2018-12-23] MEDS: IPRATRPIUM/ALBUTEROL 0.5/2.5MG 3 ML NEBU. NEB SCH ×4 (08:37→20:42)
--- NOTE | 2018-12-23 08:43 | NUR ---
MIRNA following pt. Pt has been accepted at [facility] but will need to be off 1:1 before they can admit him. Pt is still under 1:1 observation. Will continue to follow.
[2018-12-23] MEDS: LORazepam 1 MG TABLET PO SCH ×2 (09:00→21:00)
[2018-12-23] MEDS: CALCIUM CARBONATE 500 MG TABLET PO SCH ×3 (09:00→18:00)
[2018-12-23] MEDS: METOPROLOL TART IMMED RELEASE 25 MG TABLET. PO SCH ×2 (09:00→21:00)
[2018-12-23] MEDS: LACTOBACILLUS RHAMNOSUS GG 1 CAPSULE. PO SCH ×2 (09:00→21:00)
[2018-12-23] MEDS: METOPROLOL TARTRATE 5 MG/5 ML VIAL. IVP PRN (09:36)
[2018-12-23] MEDS: DOXYCYCLINE HYCLATE 100 MG in IV DEXTROSE 5% 100ML 100 ML IV SCH ×2 (10:38→22:17)
[2018-12-23] MEDS ORDERED: POTASSIUM CHL 20MEQ PREMIX 50 ML IV SCH (11:15)
[2018-12-23] MEDS ORDERED: POTASSIUM CHLORIDE 10MEQ 100 ML IV SCH (11:30)
--- NOTE | 2018-12-23 12:53 | NUR ---
Pharmacy Warfarin Dosing Note S:Pharmacy consulted to assist with anticoagulation therapy started with target INR: 2 -3 O:GRAPESHAW is a 58 year old M with Mechanical Aortic Valve LABS: Last INR: 2.7 Last HGB: 11.6 Last HCT: 36 Last PLT: 469 Last dose of NONE (NPO) given on 12/21/18 at 1700 Previous Regimen: 5MG DAILY Vitamin K given: Drug Interaction Changes: None Ongoing Drug Interactions: A:INR of 2.7 is within desired range. Target range for this patient is: 2 -3 P: Warfarin dose: NPO Today at 1600, HOLD DOSE Bridge Therapy: Next INR due TOMORROW. Pharmacy anticoagulation service will continue to follow. GALINA CHEN [facility], 12/23/18 [id number]
--- NOTE | 2018-12-23 13:44 | PDOC ---
PROGRESS NOTES Assessment Assessment Toxic encephalopathy. Metabolic encephalopathy. Alcohol intoxication, alcohol level 231 on 12/10/18. Confusion. Agitation. Hx of seizure? Afib. HTN. HLD. COPD. Peripheral neuropathy. RECOMMENDATIONS/PLAN: Continue Vit B1 supplement. Treat medical diseases. OT/PT. Avoid Haldol as possible. EEG on 12/18/17: No seizure activity. Borderline study. Brain MRI: No acute findings. HISTORY OF THE PRESENT ILLNESS: This is a 58-year-old male patient with history of above medical diseases and alcohol use/abuse presented to the emergency room on 12/10/18 with complaints of mechanical fall down 5 steps. He was intoxicated hit his head complained of neck pain and upper back pain and chest pain. He admitted that he had pain all over and he drank 9 beers that day. He he drinks regularly. Patient does take Coumadin for a Afib and valve disorder (?). Neurology was requested for consultation on 12/17/18 due to his prolonged mental status changes. Able to walk on 12/23/18. Past Medical History Cardiovascular: AFIB, HTN, Other Pulmonary: COPD CENTRAL NERVOUS SYSTEM: Periperal neuropathy, Seizure GI: GERD Psych: Anxiety, Addictions, Depression Rheumatologic: Other Renal/: Benign prostatic enlarg. Past Surgical History No pertinent history Family History Hypertension ALLERGY: NKDA MEDICATIONS: Refer to MAR SOCIAL HISTORY: He drinks alcohol heavily for many years. He uses marijuana. REVIEW OF SYSTEMS: Constitutional: No cachexia. Head: No current traumatic brain or head injury. Skin: No edema, or rash. Ear: No infection. Eyes: No vision loss or color blindness. Nose: No bleeding or purulent discharges. Hearing: No hearing decrease. Neck: No injury. Cardiac: AFib, HTN. Pulmonary: COPD. GI: GERD. Urinary/genital: No dysuria, incontinence, urinary retention. Endocrinologic: No cousin face, craniofacial dysmorphism, polydactyly. Skeletomuscular: No muscular atrophy, deformity. Neurological: see HP. Psychiatric: Alcohol and marijuana use/abuse. Otherwise, not [id number] review of systems. PHYSICAL EXAMINATION: General appearance is in subacute distress. HEENT: Normocephalic and nontraumatic. Eyes, nose, ears, and throat are unremarkable. Neck is supple. No lymphadenopathy. No crepitus. Cardiovascular: S1, S2, regular rate and rhythm. Pulmonary: Seemed clear to auscultation bilaterally. Abdomen: Bowel sounds are positive. Extremities: No rash, lesions, or edema. No restriction of range of motion NEUROLOGICAL EXAMINATION: Drowsiness. Not able to communicate well. Not fully oriented to time, place and person. PERRL. EOMI. CN: no acute focal findings. Muscle tone: WNL. Muscle strength: 4+ DTR: 2- UE, 0-1 at knee. Plantar reflex: Neutral response bilaterally Gait: not examined in chair. Sensory exam: no abnormal findings. No other cerebellar signs elicited. F-T-N test not performed due to not follow commands. Objective Objective Vital Signs Date Time Temp Pulse Resp B/P (MAP) Pulse Ox O2 Delivery O2 Flow Rate FiO2 12/23/18 12:16 106 170/96 12/23/18 11:59 Nasal Cannula 2.0 12/23/18 11:28 99.0 16 94 99.0 Intake and Output 12/23/18 06:59 Intake Total 675 ml Output Total 2300 ml Balance -1625 ml IV Total 675 ml Output Urine Total 2300 ml # Bowel Movements 1 Vitals Signs Vitals VS - Last 72 Hours, by Label Date Time Temp Pulse Resp B/P (MAP) Pulse Ox O2 Delivery O2 Flow Rate FiO2 12/23/18 12:16 106 170/96 12/23/18 11:59 Nasal Cannula 2.0 12/23/18 11:28 99.0 106 16 170/96 (120) 94 2.0 99.0 12/23/18 09:55 94 159/94 (115) 12/23/18 09:36 115 166/87 12/23/18 08:38 100 Nasal Cannula 2.0 12/23/18 08:08 97.7 115 20 166/87 (113) 94 Nasal Cannula 2.0 97.7 12/23/18 08:00 Nasal Cannula 2.0 12/23/18 07:00 97.7 115 20 166/87 (113) 94 Nasal Cannula 2.0 97.7 12/23/18 06:49 105 160/92 12/23/18 06:49 105 160/92 12/23/18 03:30 105 20 160/92 (114) 97 Nasal Cannula 2.0 12/23/18 02:10 94 152/84 12/23/18 00:00 94 152/84 12/22/18 23:00 99.4 104 17 179/95 (123) 97 Nasal Cannula 2.0 99.4 12/22/18 21:00 94 152/84 12/22/18 20:42 96 Nasal Cannula 2.0 12/22/18 20:14 Nasal Cannula 2.0 12/22/18 19:00 98.0 94 17 152/84 (106) 97 Nasal Cannula 2.0 98.0 12/22/18 18:51 86 169/85 12/22/18 18:49 99.3 86 22 169/85 (113) 100 Nasal Cannula 2.0 99.3 12/22/18 15:27 98 Nasal Cannula 2.0 12/22/18 15:04 99.5 90 20 173/92 (119) 98 Room Air 98.0 99.5 12/22/18 14:48 87 166/85 12/22/18 11:11 97 Nasal Cannula 2.0 12/22/18 11:07 88 177/91 12/22/18 10:59 97.9 88 20 177/91 (119) 99 Nasal Cannula 2.0 97.9 12/22/18 07:48 Nasal Cannula 2.0 12/22/18 07:30 99.1 86 28 151/79 (103) 100 Nasal Cannula 2.0 99.1 12/22/18 07:25 98 Nasal Cannula 2.0 Laboratory Laboratory Laboratory Tests Test 12/22/18 14:45 12/23/18 03:05 Urine Opiates Screen Neg (NEG) Urine Methadone Screen Neg (NEG) Urine Barbiturates Neg (NEG) Urine Phencyclidine Screen Neg (NEG) Urine Amphetamine/Methamphetamine Neg (NEG) Urine Benzodiazepines Screen Pos (NEG) Urine Cocaine Screen Neg (NEG) Urine Cannabinoids Screen Neg (NEG) Urine Ethyl Alcohol Neg (NEG) White Blood Count 12.0 x10^3/uL (4.0-11.0) Red Blood Count 4.58 x10^6/uL (4.30-5.70) Hemoglobin 11.6 g/dL (13.0-17.5) Hematocrit 36.0 % (39.0-53.0) Mean Corpuscular Volume 79 fL (79-100) Mean Corpuscular Hemoglobin 26 pg (25-35) Mean Corpuscular Hemoglobin Concent 32 g/dL (31-37) Red Cell Distribution Width 21.1 % (11.5-14.5) Platelet Count 469 x10^3/uL (140-400) Neutrophils (%) (Auto) 83 % (31-73) Lymphocytes (%) (Auto) 8 % (24-48) Monocytes (%) (Auto) 7 % (0-9) Eosinophils (%) (Auto) 1 % (0-3) Basophils (%) (Auto) 1 % (0-3) Neutrophils # (Auto) 9.9 x10^3/uL (1.8-7.7) Lymphocytes # (Auto) 1.0 x10^3/uL (1.0-4.8) Monocytes # (Auto) 0.9 x10^3/uL (0.0-1.1) Eosinophils # (Auto) 0.1 x10^3/uL (0.0-0.7) Basophils # (Auto) 0.1 x10^3/uL (0.0-0.2) Prothrombin Time 28.7 SEC (11.7-14.0) Prothromb Time International Ratio 2.7 (0.8-1.1) Sodium Level 147 mmol/L (136-145) Potassium Level 2.8 mmol/L (3.5-5.1) Chloride Level 107 mmol/L (98-107) Carbon Dioxide Level 26 mmol/L (21-32) Anion Gap 14 (6-14) Blood Urea Nitrogen 9 mg/dL (8-26) Creatinine 0.7 mg/dL (0.7-1.3) Estimated GFR (Cockcroft-Gault) 116.2 BUN/Creatinine Ratio 13 (6-20) Glucose Level 108 mg/dL (70-99) Calcium Level 8.8 mg/dL (8.5-10.1) Total Bilirubin 0.4 mg/dL (0.2-1.0) Aspartate Amino Transf (AST/SGOT) 20 U/L (15-37) Alanine Aminotransferase (ALT/SGPT) 19 U/L (16-63) Alkaline Phosphatase 49 U/L (46-116) Total Protein 6.6 g/dL (6.4-8.2) Albumin 3.2 g/dL (3.4-5.0) Albumin/Globulin Ratio 0.9 (1.0-1.7) Procalcitonin < 0.10 ng/mL (0.00-0.10) Microbiology 12/20/18 Blood Culture - Preliminary, Resulted NO GROWTH AFTER 2 DAYS 12/20/18 Urine Culture - Final, Complete 12/20/18 Urine Culture Result 1 (AMARA) - Final, Complete Medication Medications Current Medications Hydralazine HCl (Apresoline Inj) 10 mg Q6HRS IVP Last administered on 12/23/18at 12:16; Start 12/22/18 at 18:00 Potassium Chloride 20 meq/ Sodium Chloride 1,010 ml @ 75 mls/hr 1X ONCE IV Last administered on 12/22/18at 17:51; Start 12/22/18 at 16:00; Stop 12/23/18 at 05:27; Status DC Potassium Chloride/Water 50 ml @ 50 mls/hr Q1H IV ; Start 12/23/18 at 11:15; Stop 12/23/18 at 13:14; Status UNV Potassium Chloride/Water 100 ml @ 100 mls/hr Q1H IV Last administered on 12/23/18at 09:25; Start 12/23/18 at 06:00; Stop 12/23/18 at 09:59; Status DC Potassium Chloride/Water 100 ml @ 100 mls/hr Q1H IV ; Start 12/23/18 at 11:30; Stop 12/23/18 at 13:04; Status DC Sodium Chloride 1,000 ml @ 75 mls/hr 1X ONCE IV Last administered on 12/22/18at 14:49; Start 12/22/18 at 14:30; Stop 12/23/18 at 03:49; Status DC Warfarin Sodium (Coumadin - No Dose Today) 1 each 1X WARF ONCE MC ; Start 12/23/18 at 16:00; Stop 12/23/18 at 16:01 Comment Review of Relevant I have reviewed the following items robert (where applicable) has been applied. JAMEL BONILLA MD Dec 23, 2018 13:44
--- NOTE | 2018-12-23 14:58 | PDOC ---
FRANSISCO JUAREZ DIVER ASSISTANT 12/23/18 1458: CARDIO Progress Notes Date and Time Date of Service 12/23/2018 Time of Evaluation 1440 Subjective Subjective: Other (drowsy) Vitals Vitals Vital Signs Date Time Temp Pulse Resp B/P (MAP) Pulse Ox O2 Delivery O2 Flow Rate FiO2 12/23/18 14:25 98.6 108 20 169/90 (116) 96 2.0 98.6 12/23/18 11:59 Nasal Cannula Weight Weight [ ] Input and Output Intake and Output Intake and Output 12/23/18 07:00 Intake Total 675 ml Output Total 2300 ml Balance -1625 ml IV Total 675 ml Output Urine Total 2300 ml # Bowel Movements 1 Laboratory Labs Laboratory Tests Test 12/23/18 03:05 White Blood Count 12.0 x10^3/uL (4.0-11.0) Red Blood Count 4.58 x10^6/uL (4.30-5.70) Hemoglobin 11.6 g/dL (13.0-17.5) Hematocrit 36.0 % (39.0-53.0) Mean Corpuscular Volume 79 fL (79-100) Mean Corpuscular Hemoglobin 26 pg (25-35) Mean Corpuscular Hemoglobin Concent 32 g/dL (31-37) Red Cell Distribution Width 21.1 % (11.5-14.5) Platelet Count 469 x10^3/uL (140-400) Neutrophils (%) (Auto) 83 % (31-73) Lymphocytes (%) (Auto) 8 % (24-48) Monocytes (%) (Auto) 7 % (0-9) Eosinophils (%) (Auto) 1 % (0-3) Basophils (%) (Auto) 1 % (0-3) Neutrophils # (Auto) 9.9 x10^3/uL (1.8-7.7) Lymphocytes # (Auto) 1.0 x10^3/uL (1.0-4.8) Monocytes # (Auto) 0.9 x10^3/uL (0.0-1.1) Eosinophils # (Auto) 0.1 x10^3/uL (0.0-0.7) Basophils # (Auto) 0.1 x10^3/uL (0.0-0.2) Prothrombin Time 28.7 SEC (11.7-14.0) Prothromb Time International Ratio 2.7 (0.8-1.1) Sodium Level 147 mmol/L (136-145) Potassium Level 2.8 mmol/L (3.5-5.1) Chloride Level 107 mmol/L (98-107) Carbon Dioxide Level 26 mmol/L (21-32) Anion Gap 14 (6-14) Blood Urea Nitrogen 9 mg/dL (8-26) Creatinine 0.7 mg/dL (0.7-1.3) Estimated GFR (Cockcroft-Gault) 116.2 BUN/Creatinine Ratio 13 (6-20) Glucose Level 108 mg/dL (70-99) Calcium Level 8.8 mg/dL (8.5-10.1) Total Bilirubin 0.4 mg/dL (0.2-1.0) Aspartate Amino Transf (AST/SGOT) 20 U/L (15-37) Alanine Aminotransferase (ALT/SGPT) 19 U/L (16-63) Alkaline Phosphatase 49 U/L (46-116) Total Protein 6.6 g/dL (6.4-8.2) Albumin 3.2 g/dL (3.4-5.0) Albumin/Globulin Ratio 0.9 (1.0-1.7) Procalcitonin < 0.10 ng/mL (0.00-0.10) Microbiology Micro Microbiology 12/20/18 Blood Culture - Preliminary, Resulted NO GROWTH AFTER 2 DAYS 12/20/18 Urine Culture - Final, Complete 12/20/18 Urine Culture Result 1 (AMARA) - Final, Complete Review of Systems Constitutional: yes: alert, oriented Ears/Nose/Throat: Yes: no symptom reported Eyes: Yes: no symptom reported Pulmonary: Yes no symptom reported Cardiovascular: Yes no symptom reported Gastrointestional: Yes: no symptom reported Genitourinary: Yes: no symptom reported Musculoskeletal: Yes: no symptom reported Skin: Yes no symptom reported Physical Exam HEENT: Neck Supple W Full Motion Chest: Symmetric LUNGS: Other (diminisehd bases) Heart: RRR (SR) Abdomen: Other (soft) Extremities: Other (hand mittens in place) Neurology: alert, oriented, other (drowsy) Assessment Assessment 1. Mechanical fall secondary to intoxication 2. Aortic stenosis s/p mechanical aortic valve; OAC with warfarin INR 2.7. Unfortunately high risk for bleeding given chronic alcoholism and frequent falls 3. Metabolic, toxic encephalopathy 4. Dysphagia, possible aspiration PNA 5. Fevers, low-grade. BC negative thus far. ID following 6. Hypertension; labile episodes 7. PAFIB; maintaining SR 8. Hypokalemia; replaced 9. ETOH abuse Recommendations 1. CIWA protocol per PCP 2. EF 55%, suboptimal images, if any concerns for endocarditis per ID then will consider for DONNA 3. He is high risk for injury, bleed and falls given his continued ETOH use. Will reinforce consequences as noted in the latter in regards to ETOH abuse,. 4. Continue warfarin therapy. Goal INR 2-3 5. Metoprolol, hydralazine IV while NPO ANN-MARIE CARY MD 12/23/18 1558: CARDIO Progress Notes Assessment Assessment Patient seen and examined. Agree with SOFT IRON INSPECTOR's assessment and plan. 2-D echo showed normal LV systolic function. PAF maintaining sinus rhythm. Continue current medications including warfarin. FRANSISCO JUAREZ APRN Dec 23, 2018 14:58 AN-NMARIE CARY MD Dec 23, 2018 15:58
[2018-12-23] MEDS ORDERED: PANTOPRAZOLE IV PUSH 40 MG VIAL. IVP SCH (15:00)
[2018-12-23 23:21] LABS: CALCIUM 8.3 mg/dL (8.5-10.1); CREATININE 0.7 mg/dL (0.7-1.3); GFR 116.2; POTASSIUM 3.1 mmol/L (3.5-5.1)
[2018-12-24] VITALS (53 sets, daily range): BP systolic 66–165; BP diastolic 38–95
[2018-12-24] MEDS: PIPERACILLIN/TAZOBACTAM 3.375 GM in IV NORMAL SALINE 50ML 50 ML IV SCH ×2 (01:12→05:09)
[2018-12-24] MEDS: hydrALAZINE 20 MG/ML VIAL. IVP SCH ×5 (01:12→22:34)
[2018-12-24 03:19] LABS: BASO # 0.2 x10^3/uL (0.0-0.2); BASO % 1 % (0-3); EOS # 0.1 x10^3/uL (0.0-0.7); EOS % 1 % (0-3); HEMATOCRIT 31.6 % (39.0-53.0); HEMOGLOBIN 10.1 g/dL (13.0-17.5); LYMPH # 1.1 x10^3/uL (1.0-4.8); LYMPH % 6 % (24-48); MEAN CORPUSCULAR HEMOGLOBIN 26 pg (25-35); MEAN CORPUSCULAR HGB CONC 32 g/dL (31-37); MEAN CORPUSCULAR VOLUME 80 fL (79-100); MONO # 1.7 x10^3/uL (0.0-1.1); MONO % 9 % (0-9); NEUT # 14.8 x10^3/uL (1.8-7.7); NEUT % 83 % (31-73); PLATELET COUNT 507 x10^3/uL (140-400); RED BLOOD COUNT 3.97 x10^6/uL (4.30-5.70); RED CELL DISTRIBUTION WIDTH 21.1 % (11.5-14.5); WHITE BLOOD COUNT 17.8 x10^3/uL (4.0-11.0)
[2018-12-24 03:30] LABS: PROTHROMBIN TIME PATIENT 34.5 SEC (11.7-14.0)
[2018-12-24 03:31] LABS: CALCIUM 8.2 mg/dL (8.5-10.1); CREATININE 0.9 mg/dL (0.7-1.3); POTASSIUM 3.4 mmol/L (3.5-5.1)
[2018-12-24] MEDS: fentaNYL PF VIAL 100 MCG/2 ML VIAL IV PRN (05:10)
[2018-12-24] MEDS: ENALAPRILAT 1.25 MG/ML VIAL. IVP SCH ×5 (06:00→22:34)
[2018-12-24] MEDS: METOPROLOL TARTRATE 5 MG/5 ML VIAL. IVP PRN (07:22)
[2018-12-24] MEDS: AMINO AC 3%/ELECTROLYTE/GLYCER 1,000 ML IV SCH ×2 (07:40→21:00)
--- NOTE | 2018-12-24 07:55 | RAD ---
CHEST AP ONLY 12/24/2018 5:00 AM INDICATION: Pneumonia COMPARISON: 12/22/2018 TECHNIQUE: Portable frontal view of the chest is provided. FINDINGS: The cardiomediastinal silhouette is similar in appearance. Improved aeration in the right lung with minimal persistent bandlike opacity in the right midlung. Median sternotomy changes are present. There are no significant pleural effusions. There is no pulmonary vascular congestion. No pneumothorax. IMPRESSION: Improved aeration with minimal persistent opacity in the right midlung. Recommend follow-up to resolution. Electronically signed by: Ai Canales MD (12/24/2018 7:53 AM) [facility]
[2018-12-24] MEDS: POTASSIUM CHLORIDE 20 MEQ TABLET.ER. PO SCH ×2 (08:00)
[2018-12-24] MEDS: IPRATRPIUM/ALBUTEROL 0.5/2.5MG 3 ML NEBU. NEB SCH ×4 (08:19→19:47)
[2018-12-24] MEDS: METOPROLOL TART IMMED RELEASE 25 MG TABLET. PO SCH ×2 (09:00→19:58)
[2018-12-24] MEDS: NICOTINE 21MG PATCH. TD SCH (09:00)
[2018-12-24] MEDS: LORazepam 1 MG TABLET PO SCH ×2 (09:00→19:58)
[2018-12-24] MEDS: CALCIUM CARBONATE 500 MG TABLET PO SCH ×3 (09:00→18:00)
--- NOTE | 2018-12-24 09:02 | NUR ---
SS following up with discharge planning. SS discussed with pt's RN. Pt has been off 1:1 since yesterday with no behaviors. Per RN, WBC increased and pt is not medically stable for transfer. [facility] coming to do bedside evaluation. SS will continue to follow for discharge planning.
--- NOTE | 2018-12-24 09:44 | PDOC ---
Infectious Disease Note Subjective Subjective Awake but not answering questions CARA MARROQUIN unable to obtain Vital Sign Vital Signs Vital Signs Date Time Temp Pulse Resp B/P (MAP) Pulse Ox O2 Delivery O2 Flow Rate FiO2 12/24/18 08:20 100 Nasal Cannula 2.0 12/24/18 07:22 150 104/67 12/24/18 06:25 36 12/24/18 05:26 98.1 98.1 Physical Exam PHYSICAL EXAM GENERAL: confusion - tachypnic HEENT: Pupils are equally round and reactive. Oropharynx is pink and dry. NECK: Supple. LUNGS: Clear to auscultation. HEART: S1, S2. ABDOMEN: Obese, soft, and nontender with bowel sounds present. - dark stool EXTREMITIES: No gross edema or cyanosis. Mittens SKIN: Warm to touch. No signs of rash.some healing scraps NEUROLOGIC: He is confused; mumbles. No IV Labs Lab Laboratory Tests Test 12/23/18 23:00 12/24/18 02:05 Sodium Level 142 mmol/L (136-145) 143 mmol/L (136-145) Potassium Level 3.1 mmol/L (3.5-5.1) 3.4 mmol/L (3.5-5.1) Chloride Level 107 mmol/L (98-107) 109 mmol/L (98-107) Carbon Dioxide Level 25 mmol/L (21-32) 22 mmol/L (21-32) Anion Gap 10 (6-14) 12 (6-14) Blood Urea Nitrogen 14 mg/dL (8-26) 27 mg/dL (8-26) Creatinine 0.7 mg/dL (0.7-1.3) 0.9 mg/dL (0.7-1.3) Estimated GFR (Cockcroft-Gault) 116.2 87.0 Glucose Level 129 mg/dL (70-99) 158 mg/dL (70-99) Calcium Level 8.3 mg/dL (8.5-10.1) 8.2 mg/dL (8.5-10.1) White Blood Count 17.8 x10^3/uL (4.0-11.0) Red Blood Count 3.97 x10^6/uL (4.30-5.70) Hemoglobin 10.1 g/dL (13.0-17.5) Hematocrit 31.6 % (39.0-53.0) Mean Corpuscular Volume 80 fL (79-100) Mean Corpuscular Hemoglobin 26 pg (25-35) Mean Corpuscular Hemoglobin Concent 32 g/dL (31-37) Red Cell Distribution Width 21.1 % (11.5-14.5) Platelet Count 507 x10^3/uL (140-400) Neutrophils (%) (Auto) 83 % (31-73) Lymphocytes (%) (Auto) 6 % (24-48) Monocytes (%) (Auto) 9 % (0-9) Eosinophils (%) (Auto) 1 % (0-3) Basophils (%) (Auto) 1 % (0-3) Neutrophils # (Auto) 14.8 x10^3/uL (1.8-7.7) Lymphocytes # (Auto) 1.1 x10^3/uL (1.0-4.8) Monocytes # (Auto) 1.7 x10^3/uL (0.0-1.1) Eosinophils # (Auto) 0.1 x10^3/uL (0.0-0.7) Basophils # (Auto) 0.2 x10^3/uL (0.0-0.2) Prothrombin Time 34.5 SEC (11.7-14.0) Prothromb Time International Ratio 3.4 (0.8-1.1) Micro Microbiology 12/20/18 Blood Culture - Preliminary, Resulted NO GROWTH AFTER 1 DAY Objective Assessment Dark stool Encephalopathy - Fever ? aspiration, ETOH withdrawal, infection - better - XRAY improved Leukocytosis - worse today - procalcitonin 12/23 - nml Suspected aspiration Sinusitis Dysphagia failed bedside swallow today Encephalopathy - improved Hyponatremia now NA 150 Alcohol withdrawal s/p fall while intoxicated ? seizure A-fib on warfarin Valvular disorder CAD Plan Plan of Care D/c Zosyn/doxy 12/20 STAT Hemogram/ABG/BMP/INR/troponin Blood cults and lactic/ammonia already ordered per primary this am Dose Cefepime/Flagyl/Dapto/Micafungin Consulted Pulm CC GI consult Heme eval ? reverse coagulopathy Transfer to ICU d/w charge - no IV access currently D/w nursing - multiple attempts failed and PICC ordered- will transfer now - d/w Dr. Ni ? place IJ emergently - needs fluids BC neg so far Electrolytes per primary D/w nursing D/w Dr. Caraballo/Dr. Ni D/w family Critically ill ANJU HAMILTON MD Dec 24, 2018 09:44
--- NOTE | 2018-12-24 10:07 | PDOC ---
PROGRESS NOTES Chief Complaint Chief Complaint IMPRESSION impression 12/24 became SOA, HAD dark stool, now tachypnic will transfer to icu stat, chk NH4,stat CONSULT GI, PROTONIX DRIP, consult pulmonary, type and screen Fall ETOH withdrawal , severe Toxic encephalopathy Altered mental status, worse today Tachycardia SEVERE ALCOHOL ABUSE DYSPHAGIA POSSIBLE ASPIRATION 12/23New bandlike density in the right midlung which may represent subsegmental atelectasis versus infiltrate. Short-term follow-up radiograph is recommended to ensure resolution. 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 PPN, ///CONT IV ZOSYN 1 NS BOLUS X 1 LITER 12/23 CONSULT Nephrology serum and urine osmolality REPLACE K IV 40MEQ X 1 12/23 34 min cc time History of Present Illness History of Present Illness 12/24/18 Pt seen and examined bedside INC soa, tachy, dark stool x 2 altered mental status Was resting in BED DW RN; Charts and labs reviewed replace k FAILED SWALLOW TEST POOR PROGNOSIS CHK SERUM OSMOLALITY pending d/w DR HAMILTON 34 min pt exam, chart review CC TIME , > 50% of time spent with exam, chart review, pt care coordination 12/17/18 Pt seen and examined in ICU PT still sedated PEGGY RN that she tried to wean the patient off of Precedex but he continued to be combative so she had to continue the sedation meds Consulted neurology to make sure there isn't other pathology causing his mental status change Charts and labs reviewed NA 143 12/16/18 Pt seen and examined in the ICU Pt is sedated with IV Precedex PEGGY AVALOS Pt was combative in the morning Charts and labs reviewed Na: 140 12/15/18 Pt seen and examined in the ICU Pt's son was seen leaving the room Pt is still sedated with Precedex Pt requested pain medications Chart and labs reviewed Hyponatremia resolved Pt is bradycardic with rate of 50 D/w RN 12/14/18 Pt seen and examined in the ICU Pt still sedated with Precedex INR 1.1 Hyponatremia has resolved PEGGY RN Reviewed chart 12/13/18 Pt seen and examined in the ICU Pt was combative and trying to get out of bed all morning. Pt was given Ativan, Haldol, Benadryl, Zyprexa and finally Fentanyl for patient safety. He was comfortably snoring. Discussed with son who was glad to see the pt finally asleep. PEGGY RN Vitals Vitals Vital Signs Date Time Temp Pulse Resp B/P (MAP) Pulse Ox O2 Delivery O2 Flow Rate FiO2 12/24/18 08:20 100 Nasal Cannula 2.0 12/24/18 07:22 150 104/67 12/24/18 06:25 36 12/24/18 05:26 98.1 98.1 Physical Exam Physical Exam GENERAL: confusion NOT answering questions HEENT: Pupils are equally round and reactive. Oropharynx is pink and dry. NECK: Supple. LUNGS: Clear to auscultation. rr = 30 HEART: S1, S2. ABDOMEN: Obese, soft, and nontender with bowel sounds present. EXTREMITIES: No gross edema or cyanosis. Mittens SKIN: Warm to touch. No signs of rash.some healing scraps NEUROLOGIC: encephalophic General: Cooperative, No acute distress, moderate distress, Other (confused , TACHYPNIC) Heart: Regular rate, Normal S1, Normal S2, No murmurs, Other (valvular click, TACHY 145) Lungs: Clear, Wheezing Abdomen: Normal bowel sounds, Soft, No tenderness, No masses Extremities: No cyanosis, Other (trace bilateral LE edema ) Skin: No significant lesion Labs LABS Indication:Trauma. TECHNIQUE: CT head without IV contrast COMPARISON:None FINDINGS: No pathologic extra-axial or intra-axial fluid collection. The ventricles and basal cisterns are within normal limits. No acute intracranial bleed. No large scalp hematoma. Orbits are within normal limits. No acute calvarial fractures. Mucous retention cyst or polyps are seen in the bilateral maxillary sinuses. Patchy opacification of the ethmoid air cells suggesting sinus disease. Bilateral mastoid air cells are clear. IMPRESSION: No acute intracranial bleed or calvarial fracture. Indication:Trauma. TECHNIQUE: CT of the cervical spine without IV contrast with multiplanar reformats. COMPARISON:None FINDINGS: Cervical spine is in normal anatomic alignment. Atlantoaxial joint interval is preserved. Loss of vertebral body height seen at T2 vertebral body with no retropulsion the spinal canal. No compression deformities in the cervical spine. Facet joints are in normal anatomic alignment. Multilevel advanced degenerative disc disease noted. Visualized noncontrast sections through the neck are within normal limits. Clear lung apices. IMPRESSION: 1. Mild loss of T2 vertebral body height suggests compression deformity or collapsed Schmorl's node, age indeterminate. Clinically correlate with focal tenderness. 2. No acute fractures in the cervical spine. 3. Advanced multilevel degenerative disc disease. Indication:Trauma. TECHNIQUE: CT chest, abdomen and pelvis with IV contrast with multiplanar reformats. COMPARISON: None FINDINGS: Heart is normal in size. No pericardial or pleural effusion. CABG changes noted. Clear lung bases. No enlarged axillary, mediastinal or hilar adenopathy. Mild diffuse atherosclerotic plaque in the thoracic aorta. No pneumothorax. Mild emphysema. No lung consolidation. No acute fractures. Mild abnormality seen of the superior endplate of the T2 vertebral body. Mild aneurysmal dilation of the ascending aorta measuring 4 cm. Liver, spleen, gallbladder, pancreas, adrenals and kidneys are within normal limits. No free pelvic fluid or ascites. No pneumoperitoneum. The prostate and seminal vesicles show no large mass. No bowel obstruction. Normal appendix. Urinary bladder is distended without radiopaque stone. No suspicious bony lesion. IMPRESSION: 1. Mild abnormality of the superior endplate of the T12 vertebral body likely collapsed Schmorl's node or old compression deformity. Clinically correlate with focal tenderness. 2. Mild aneurysmal dilation of the ascending aorta. Electronically signed by: Rodrigo Carrillo DO (12/10/2018 7:58 PM) [facility] DICTATED and SIGNED BY: RODRIGO CARRILLO DO DATE: 12/10/181957 APPROVED REPORT EXAM: Two-dimensional and M-mode echocardiogram with Doppler and color Doppler. Other Information HR: 82bpm Technically limited study due to Non-compliant restless patient INDICATION Cardiac Disease: CAD Fever RISK FACTORS Hypertension Hyperlipidemia 2D DIMENSIONS Left Atrium(2D) 3.9 (1.6-4.0cm) IVSd 1.1 (0.7-1.1cm) Aortic Root(2D) 3.5 (2.0-3.7cm) LVDd 5.8 (3.9-5.9cm) LVOT Diameter 2.0 (1.8-2.4cm) PWd 1.2 (0.7-1.1cm) LVDs 3.3 (2.5-4.0cm) FS (%) 42.7 % SV 119.7 ml LVEF(%) 73.1 (>50%) Aortic Valve AoV Peak Juan R. 236.0cm/s AoV VTI 43.5cm AO Peak GR. 22.3mmHg LVOT VTI 13.61cm AO Mean GR. 11mmHg Mitral Valve MV E Velocity 108.7cm/s MV DECEL TIME 135ms MV A Velocity 101.3cm/s E/A Ratio 1.1 TDI Lateral E' P. V 10.04cm/s Medial E' P. V 10.30cm/s E/Lateral E' 10.8 E/Medial E' 10.6 Tricuspid Valve TR P. Velocity 261cm/s RAP ESTIMATE 3mmHg TR Peak Gr. 27mmHg RVSP 30mmHg Pulmonary Vein S1 Velocity 47.2cm/s S2 Velocity 46.85cm/s D2 Velocity 46.9cm/s PVa duration 135msec LEFT VENTRICLE The left ventricle is normal size. There is mild concentric left ventricular hypertrophy. The left ventricular systolic function is normal and the ejection fraction is within normal range. EF 55% Unable to determine wall motion accurately due to suboptimal images. Transmitral Doppler flow pattern is Grade II-pseudonormal filling dynamics. RIGHT VENTRICLE The right ventricle is normal size. There is normal right ventricular wall thickness. The right ventricular systolic function is normal. ATRIA The left atrium size is normal. The right atrium is mildly dilated. The interatrial septum is intact with no evidence for an atrial septal defect or patent foramen ovale as noted on 2-D or Doppler imaging. AORTIC VALVE The aortic valve is not well visualized. Doppler and Color Flow revealed no significant aortic regurgitation. There is no significant aortic valvular stenosis. MITRAL VALVE The mitral valve is not well visualized. There is no mitral valve stenosis. Doppler and Color-flow revealed trace mitral regurgitation. TRICUSPID VALVE The tricuspid valve is not well visualized. Doppler and Color Flow revealed no tricuspid valve regurgitation noted. There is no tricuspid valve stenosis. PULMONIC VALVE The pulmonic valve is not well visualized. Doppler and Color Flow revealed no pulmonic valvular regurgitation. GREAT VESSELS The aortic root is normal in size. The IVC is normal in size and collapses >50% with inspiration. PERICARDIAL EFFUSION There is no evidence of significant pericardial effusion. Critical Notification Critical Value: No <Conclusion> The left ventricular systolic function is normal and the ejection fraction is within normal range. EF 55% Unable to determine wall motion accurately due to suboptimal images. Technically very difficult study, if there is concern for endocarditis or valvular disease or significant cardiac wall motion abnormalities, suggest DONNA. Signed by : Aedla Herr, Electronically Approved : 12/22/2018 17:55:47 DICTATED and SIGNED BY: ADELA HERR MD DATE: 12/22/18 1744 Laboratory Tests Test 12/23/18 23:00 12/24/18 02:05 Sodium Level 142 mmol/L (136-145) 143 mmol/L (136-145) Potassium Level 3.1 mmol/L (3.5-5.1) 3.4 mmol/L (3.5-5.1) Chloride Level 107 mmol/L (98-107) 109 mmol/L (98-107) Carbon Dioxide Level 25 mmol/L (21-32) 22 mmol/L (21-32) Anion Gap 10 (6-14) 12 (6-14) Blood Urea Nitrogen 14 mg/dL (8-26) 27 mg/dL (8-26) Creatinine 0.7 mg/dL (0.7-1.3) 0.9 mg/dL (0.7-1.3) Estimated GFR (Cockcroft-Gault) 116.2 87.0 Glucose Level 129 mg/dL (70-99) 158 mg/dL (70-99) Calcium Level 8.3 mg/dL (8.5-10.1) 8.2 mg/dL (8.5-10.1) White Blood Count 17.8 x10^3/uL (4.0-11.0) Red Blood Count 3.97 x10^6/uL (4.30-5.70) Hemoglobin 10.1 g/dL (13.0-17.5) Hematocrit 31.6 % (39.0-53.0) Mean Corpuscular Volume 80 fL (79-100) Mean Corpuscular Hemoglobin 26 pg (25-35) Mean Corpuscular Hemoglobin Concent 32 g/dL (31-37) Red Cell Distribution Width 21.1 % (11.5-14.5) Platelet Count 507 x10^3/uL (140-400) Neutrophils (%) (Auto) 83 % (31-73) Lymphocytes (%) (Auto) 6 % (24-48) Monocytes (%) (Auto) 9 % (0-9) Eosinophils (%) (Auto) 1 % (0-3) Basophils (%) (Auto) 1 % (0-3) Neutrophils # (Auto) 14.8 x10^3/uL (1.8-7.7) Lymphocytes # (Auto) 1.1 x10^3/uL (1.0-4.8) Monocytes # (Auto) 1.7 x10^3/uL (0.0-1.1) Eosinophils # (Auto) 0.1 x10^3/uL (0.0-0.7) Basophils # (Auto) 0.2 x10^3/uL (0.0-0.2) Prothrombin Time 34.5 SEC (11.7-14.0) Prothromb Time International Ratio 3.4 (0.8-1.1) Assessment and Plan Assessmemt and Plan Problems Medical Problems: (1) Alcohol abuse Status: Acute (2) Closed head injury Status: Acute Comment Review of Relevant I have reviewed the following items robert (where applicable) has been applied. Labs Laboratory Tests Test 12/22/18 13:11 12/22/18 14:45 12/23/18 03:05 12/23/18 23:00 Glucose (Fingerstick) 168 mg/dL (70-99) Urine Opiates Screen Neg (NEG) Urine Methadone Screen Neg (NEG) Urine Barbiturates Neg (NEG) Urine Phencyclidine Screen Neg (NEG) Urine Amphetamine/Methamphetamine Neg (NEG) Urine Benzodiazepines Screen Pos (NEG) Urine Cocaine Screen Neg (NEG) Urine Cannabinoids Screen Neg (NEG) Urine Ethyl Alcohol Neg (NEG) White Blood Count 12.0 x10^3/uL (4.0-11.0) Red Blood Count 4.58 x10^6/uL (4.30-5.70) Hemoglobin 11.6 g/dL (13.0-17.5) Hematocrit 36.0 % (39.0-53.0) Mean Corpuscular Volume 79 fL (79-100) Mean Corpuscular Hemoglobin 26 pg (25-35) Mean Corpuscular Hemoglobin Concent 32 g/dL (31-37) Red Cell Distribution Width 21.1 % (11.5-14.5) Platelet Count 469 x10^3/uL (140-400) Neutrophils (%) (Auto) 83 % (31-73) Lymphocytes (%) (Auto) 8 % (24-48) Monocytes (%) (Auto) 7 % (0-9) Eosinophils (%) (Auto) 1 % (0-3) Basophils (%) (Auto) 1 % (0-3) Neutrophils # (Auto) 9.9 x10^3/uL (1.8-7.7) Lymphocytes # (Auto) 1.0 x10^3/uL (1.0-4.8) Monocytes # (Auto) 0.9 x10^3/uL (0.0-1.1) Eosinophils # (Auto) 0.1 x10^3/uL (0.0-0.7) Basophils # (Auto) 0.1 x10^3/uL (0.0-0.2) Prothrombin Time 28.7 SEC (11.7-14.0) Prothromb Time International Ratio 2.7 (0.8-1.1) Sodium Level 147 mmol/L (136-145) 142 mmol/L (136-145) Potassium Level 2.8 mmol/L (3.5-5.1) 3.1 mmol/L (3.5-5.1) Chloride Level 107 mmol/L (98-107) 107 mmol/L (98-107) Carbon Dioxide Level 26 mmol/L (21-32) 25 mmol/L (21-32) Anion Gap 14 (6-14) 10 (6-14) Blood Urea Nitrogen 9 mg/dL (8-26) 14 mg/dL (8-26) Creatinine 0.7 mg/dL (0.7-1.3) 0.7 mg/dL (0.7-1.3) Estimated GFR (Cockcroft-Gault) 116.2 116.2 BUN/Creatinine Ratio 13 (6-20) Glucose Level 108 mg/dL (70-99) 129 mg/dL (70-99) Calcium Level 8.8 mg/dL (8.5-10.1) 8.3 mg/dL (8.5-10.1) Total Bilirubin 0.4 mg/dL (0.2-1.0) Aspartate Amino Transf (AST/SGOT) 20 U/L (15-37) Alanine Aminotransferase (ALT/SGPT) 19 U/L (16-63) Alkaline Phosphatase 49 U/L (46-116) Total Protein 6.6 g/dL (6.4-8.2) Albumin 3.2 g/dL (3.4-5.0) Albumin/Globulin Ratio 0.9 (1.0-1.7) Procalcitonin < 0.10 ng/mL (0.00-0.10) Test 12/24/18 02:05 White Blood Count 17.8 x10^3/uL (4.0-11.0) Red Blood Count 3.97 x10^6/uL (4.30-5.70) Hemoglobin 10.1 g/dL (13.0-17.5) Hematocrit 31.6 % (39.0-53.0) Mean Corpuscular Volume 80 fL (79-100) Mean Corpuscular Hemoglobin 26 pg (25-35) Mean Corpuscular Hemoglobin Concent 32 g/dL (31-37) Red Cell Distribution Width 21.1 % (11.5-14.5) Platelet Count 507 x10^3/uL (140-400) Neutrophils (%) (Auto) 83 % (31-73) Lymphocytes (%) (Auto) 6 % (24-48) Monocytes (%) (Auto) 9 % (0-9) Eosinophils (%) (Auto) 1 % (0-3) Basophils (%) (Auto) 1 % (0-3) Neutrophils # (Auto) 14.8 x10^3/uL (1.8-7.7) Lymphocytes # (Auto) 1.1 x10^3/uL (1.0-4.8) Monocytes # (Auto) 1.7 x10^3/uL (0.0-1.1) Eosinophils # (Auto) 0.1 x10^3/uL (0.0-0.7) Basophils # (Auto) 0.2 x10^3/uL (0.0-0.2) Prothrombin Time 34.5 SEC (11.7-14.0) Prothromb Time International Ratio 3.4 (0.8-1.1) Sodium Level 143 mmol/L (136-145) Potassium Level 3.4 mmol/L (3.5-5.1) Chloride Level 109 mmol/L (98-107) Carbon Dioxide Level 22 mmol/L (21-32) Anion Gap 12 (6-14) Blood Urea Nitrogen 27 mg/dL (8-26) Creatinine 0.9 mg/dL (0.7-1.3) Estimated GFR (Cockcroft-Gault) 87.0 Glucose Level 158 mg/dL (70-99) Calcium Level 8.2 mg/dL (8.5-10.1) Laboratory Tests Test 12/23/18 23:00 12/24/18 02:05 Sodium Level 142 mmol/L (136-145) 143 mmol/L (136-145) Potassium Level 3.1 mmol/L (3.5-5.1) 3.4 mmol/L (3.5-5.1) Chloride Level 107 mmol/L (98-107) 109 mmol/L (98-107) Carbon Dioxide Level 25 mmol/L (21-32) 22 mmol/L (21-32) Anion Gap 10 (6-14) 12 (6-14) Blood Urea Nitrogen 14 mg/dL (8-26) 27 mg/dL (8-26) Creatinine 0.7 mg/dL (0.7-1.3) 0.9 mg/dL (0.7-1.3) Estimated GFR (Cockcroft-Gault) 116.2 87.0 Glucose Level 129 mg/dL (70-99) 158 mg/dL (70-99) Calcium Level 8.3 mg/dL (8.5-10.1) 8.2 mg/dL (8.5-10.1) White Blood Count 17.8 x10^3/uL (4.0-11.0) Red Blood Count 3.97 x10^6/uL (4.30-5.70) Hemoglobin 10.1 g/dL (13.0-17.5) Hematocrit 31.6 % (39.0-53.0) Mean Corpuscular Volume 80 fL (79-100) Mean Corpuscular Hemoglobin 26 pg (25-35) Mean Corpuscular Hemoglobin Concent 32 g/dL (31-37) Red Cell Distribution Width 21.1 % (11.5-14.5) Platelet Count 507 x10^3/uL (140-400) Neutrophils (%) (Auto) 83 % (31-73) Lymphocytes (%) (Auto) 6 % (24-48) Monocytes (%) (Auto) 9 % (0-9) Eosinophils (%) (Auto) 1 % (0-3) Basophils (%) (Auto) 1 % (0-3) Neutrophils # (Auto) 14.8 x10^3/uL (1.8-7.7) Lymphocytes # (Auto) 1.1 x10^3/uL (1.0-4.8) Monocytes # (Auto) 1.7 x10^3/uL (0.0-1.1) Eosinophils # (Auto) 0.1 x10^3/uL (0.0-0.7) Basophils # (Auto) 0.2 x10^3/uL (0.0-0.2) Prothrombin Time 34.5 SEC (11.7-14.0) Prothromb Time International Ratio 3.4 (0.8-1.1) Microbiology 12/20/18 Blood Culture - Preliminary, Resulted NO GROWTH AFTER 3 DAYS 12/20/18 Urine Culture - Final, Complete 12/20/18 Urine Culture Result 1 (AMARA) - Final, Complete Medications Current Medications Fentanyl Citrate (Fentanyl 2ml Vial) 50 mcg 1X ONCE IV Last administered on 12/10/18at 20:03; Start 12/10/18 at 19:15; Stop 12/10/18 at 19:16; Status DC Iohexol (Omnipaque 300 Mg/ml) 75 ml 1X ONCE IV Last administered on 12/10/18at 19:43; Start 12/10/18 at 19:15; Stop 12/10/18 at 19:16; Status DC Sodium Chloride 1,000 ml @ 1,000 mls/hr 1X ONCE IV Last administered on 12/10/18at 19:45; Start 12/10/18 at 19:45; Stop 12/10/18 at 20:44; Status DC Morphine Sulfate (Morphine Sulfate) 2 mg PRN Q2HR PRN IV PAIN Last administered on 12/11/18at 12:03; Start 12/10/18 at 20:15; Stop 12/11/18 at 20:14; Status DC Sodium Chloride 1,000 ml @ 100 mls/hr Q10H IV Last administered on 12/11/18at 08:10; Start 12/10/18 at 20:07; Stop 12/11/18 at 12:21; Status DC Diphtheria/ Tetanus/Acell Pertussis (Boostrix) 0.5 ml ONCE ONCE VAX IM Last administered on 12/10/18 21:07; Start 12/10/18 at 20:15; Stop 12/10/18 at 20:16; Status DC Ondansetron HCl (Zofran) 4 mg PRN Q6HRS PRN IV NAUSEA/VOMITING 1ST CHOICE Last administered on 12/21/18 03:27; Start 12/11/18 at 05:30 Multivitamins (Thera M Plus) 1 tab DAILY PO Last administered on 12/12/18 08:14; Start 12/11/18 at 09:00; Stop 12/13/18 at 11:25; Status DC Folic Acid (Folic Acid) 1 mg DAILY PO Last administered on 12/12/18 08:14; Start 12/11/18 at 09:00; Stop 12/13/18 at 11:25; Status DC Chlordiazepoxide (Librium) 50 mg PRN Q1HR PRN PO For CIWA 8-14 2ND CHOICE Last administered on 12/18/18 18:03; Start 12/11/18 at 05:30 Chlordiazepoxide (Librium) 100 mg PRN Q1HR PRN PO For CIWA 15+ 2ND CHOICE Last administered on 12/13/18 01:11; Start 12/11/18 at 05:30 Lorazepam (Ativan) 4 mg PRN Q1HR PRN PO For CIWA 8-14 Last administered on 12/13/18at 02:48; Start 12/11/18 at 05:30 Lorazepam (Ativan) 8 mg PRN Q1HR PRN PO For CIWA 15 or greater; Start 12/11/18 at 05:30 Lorazepam (Ativan Inj) 2 mg PRN Q1HR PRN IV For CIWA 8-14 Last administered on 12/22/18 05:27; Start 12/11/18 at 05:30 Lorazepam (Ativan Inj) 4 mg PRN Q1HR PRN IV For CIWA 15 or greater Last administered on 12/24/18 02:18; Start 12/11/18 at 05:30 Haloperidol Lactate (Haldol Inj) 5 mg PRN Q4HRS PRN IVP Hallucinatns,Confusn,Delirium Last administered on 12/19/18 06:04; Start 12/11/18 at 05:30 Diphenhydramine HCl (Benadryl) 25 mg PRN Q15MIN PRN IVP EPS symptoms 2'Haldol admin Last administered on 12/18/18at 03:44; Start 12/11/18 at 05:30 Clonidine HCl (Catapres) 0.1 mg PRN Q1HR PRN PO SBP > 180 or DBP > 100, MRX3; Start 12/11/18 at 05:30 Sodium Chloride 1,000 ml @ 60 mls/hr [id number] IV Last administered on 12/21/18 07:26; Start 12/11/18 at 13:00; Stop 12/22/18 at 14:53; Status DC Sodium Chloride 150 ml @ 50 mls/hr 1X ONCE IV Last administered on 12/11/18at 13:48; Start 12/11/18 at 13:00; Stop 12/11/18 at 15:59; Status DC Lisinopril (Prinivil) 20 mg DAILY PO Last administered on 12/19/18at 08:00; Start 12/11/18 at 14:00; Stop 12/21/18 at 15:19; Status DC Oxycodone/ Acetaminophen (Percocet 7.5/ 325) 1 tab PRN Q6HRS PRN PO MODERATE TO SEVERE PAIN Last administered on 12/19/18 06:19; Start 12/11/18 at 13:30 Calcium Carbonate/ Glycine (Oscal) 500 mg TIDAFTMEAL PO Last administered on 12/19/18at 17:22; Start 12/12/18 at 13:00 Ziprasidone (Geodon Im) 20 mg 1X ONCE IM ; Start 12/13/18 at 05:00; Stop 12/13/18 at 18:51; Status DC Lorazepam 100 mg/ Sodium Chloride 100 ml @ 2 mls/hr CONT PRN IV SEDATION Last administered on 12/13/18at 19:56; Start 12/13/18 at 07:00; Stop 12/18/18 at 16:33; Status DC Olanzapine (ZyPREXA IM) 10 mg PRN Q8HRS PRN IM AGITATION Last administered on 1 0/4/19at 00:05; Start 12/13/18 at 08:30 Olanzapine (ZyPREXA IM) 10 mg STK-MED ONCE IM ; Start 12/13/18 at 08:37; Stop 12/13/18 at 08:38; Status DC Fentanyl Citrate (Fentanyl 2ml Vial) 75 mcg 1X ONCE IV ; Start 12/13/18 at 09:45; Stop 12/13/18 at 19:20; Status DC Fentanyl Citrate (Fentanyl 2ml Vial) 100 mcg STK-MED ONCE .ROUTE ; Start 12/13/18 at 09:47; Stop 12/13/18 at 09:48; Status DC Fentanyl Citrate (Fentanyl 2ml Vial) 75 mcg PRN Q30MIN PRN IV PAIN Last administered on 12/22/18at 01:39; Start 12/13/18 at 10:00 Multivitamins 10 ml/Thiamine HCl 100 mg/Folic Acid 1 mg/Sodium Chloride 1,011.2 ml @ 100 mls/ hr DAILY IV Last administered on 12/18/18at 08:55; Start 12/14/18 at 12:00; Stop 12/18/18 at 19:07; Status DC Enoxaparin Sodium (Lovenox 80mg Syringe) 80 mg Q12HR SQ Last administered on 12/21/18at 07:50; Start 12/13/18 at 14:30; Stop 12/21/18 at 12:56; Status DC Warfarin Sodium (Coumadin Per Pharmacy) 1 each PRN DAILY PRN MC SEE COMMENTS Last administered on 12/23/18at 12:52; Start 12/13/18 at 14:15 Warfarin Sodium (Coumadin) 7.5 mg 1X WARF ONCE PO ; Start 12/13/18 at 16:00; Stop 12/13/18 at 16:01; Status DC Nicotine (Nicoderm Cq 21mg) 1 patch DAILY TD Last administered on 12/23/18at 08:34; Start 12/14/18 at 09:00 Dexmedetomidine HCl 400 mcg/ Sodium Chloride 100 ml @ 0 mls/hr CONT PRN IV PER PROTOCOL Last administered on 12/18/18at 00:12; Start 12/14/18 at 01:45; Stop 12/18/18 at 16:33; Status DC Sodium Chloride 500 ml @ 500 mls/hr 1X PRN PRN IV SEE COMMENTS; Start 12/14/18 at 01:45; Stop 12/20/18 at 11:56; Status DC Atropine Sulfate (ATROPINE 0.5mg SYRINGE) 0.5 mg PRN Q5MIN PRN IV SEE COMMENTS; Start 12/14/18 at 01:45; Stop 12/20/18 at 11:55; Status DC Nicotine (Nicoderm Cq 21mg) 1 patch STK-MED ONCE TD ; Start 12/14/18 at 01:57; Stop 12/14/18 at 01:57; Status DC Lorazepam (Ativan) 1 mg BID PO Last administered on 12/19/18at 08:00; Start 12/14/18 at 09:00 Warfarin Sodium (Coumadin) 5 mg DAILY16 PO ; Start 12/14/18 at 16:00; Stop 12/14/18 at 09:21; Status DC Warfarin Sodium (Coumadin) 7.5 mg 1X WARF ONCE PO ; Start 12/14/18 at 16:00; Stop 12/14/18 at 16:01; Status DC Enalaprilat (Vasotec Inj) 1.25 mg Q8HRS IVP Last administered on 12/23/18at 22:16; Start 12/14/18 at 15:00 Nicardipine HCl 50 mg/Sodium Chloride 250 ml @ 25 mls/hr CONT PRN IV SEE I/O RECORD Last administered on 12/16/18at 09:58; Start 12/14/18 at 17:45; Stop 12/18/18 at 16:33; Status DC Nicardipine HCl 50 mg/Sodium Chloride 250 ml @ 25 mls/hr CONT PRN IV SEE I/O RECORD; Start 12/14/18 at 18:00; Status UNV Warfarin Sodium (Coumadin) 7.5 mg 1X WARF ONCE PO ; Start 12/15/18 at 16:00; Stop 12/15/18 at 16:01; Status DC Warfarin Sodium (Coumadin - No Dose Today) 1 each 1X WARF ONCE MC ; Start 12/16/18 at 16:00; Stop 12/16/18 at 16:01; Status DC Warfarin Sodium (Coumadin) 7.5 mg 1X WARF ONCE PO Last administered on 12/18/18at 08:54; Start 12/17/18 at 16:00; Stop 12/17/18 at 16:01; Status DC Ceftriaxone Sodium (Rocephin) 1 gm Q24H IVP Last administered on 12/20/18 12:08; Start 12/18/18 at 12:30; Stop 12/20/18 at 15:14; Status DC Metoprolol Tartrate (Lopressor) 25 mg BID PO Last administered on 12/19/18 08:01; Start 12/18/18 at 12:30 Acetaminophen/ Codeine Phosphate (Tylenol #3) 1 tab PRN Q6HRS PRN PO PAIN MILD TO MOD; Start 12/18/18 at 12:00; Stop 12/18/18 at 12:55; Status DC Lactobacillus Rhamnosus (Culturelle) 1 cap BID PO Last administered on 12/19/18at 08:00; Start 12/18/18 at 21:00 Acetaminophen (Tylenol) 650 mg PRN Q6HRS PRN PO FEVER Last administered on 12/19/18at 17:23; Start 12/18/18 at 13:00 Warfarin Sodium (Coumadin) 7.5 mg 1X WARF ONCE PO Last administered on 12/18/18 18:03; Start 12/18/18 at 16:00; Stop 12/18/18 at 16:11; Status DC Albuterol/ Ipratropium (Duoneb) 3 ml 1X ONCE NEB Last administered on 12/19/18 07:15; Start 12/19/18 at 07:15; Stop 12/19/18 at 07:16; Status DC Ziprasidone (Geodon Im) 10 mg 1X ONCE IM Last administered on 12/19/18at 07:42; Start 12/19/18 at 07:15; Stop 12/19/18 at 07:16; Status DC Warfarin Sodium (Coumadin) 7.5 mg 1X WARF ONCE PO Last administered on 12/19/18 17:23; Start 12/19/18 at 16:00; Stop 12/19/18 at 16:01; Status DC Potassium Chloride (Klor-Con) 40 meq 1X ONCE PO Last administered on 12/19/18at 16:12; Start 12/19/18 at 14:00; Stop 12/19/18 at 14:01; Status DC Potassium Chloride (Klor-Con) 20 meq [id number] PO ; Start 10/5/19 at 08:00 Doxycycline Hyclate (Vibra-Tab) 100 mg BID PO Last administered on 12/19/18at 17:22; Start 12/19/18 at 17:30; Stop 12/19/18 at 17:57; Status DC Doxycycline Hyclate 100 mg/ Dextrose 100 ml @ 50 mls/hr Q12HR IV Last administered on 12/23/18at 22:17; Start 12/19/18 at 21:00 Metoprolol Tartrate (Lopressor Vial) 5 mg PRN Q6HRS PRN IVP HYPERTENSION Last administered on 12/24/18at 07:22; Start 12/19/18 at 18:00 Scopolamine (Transderm-Scop) 1 patch Q3DAYS TD Last administered on 12/23/18at 08:33; Start 12/20/18 at 09:00 Potassium Chloride/Water 100 ml @ 100 mls/hr Q1H IV Last administered on 12/20/18at 10:36; Start 12/20/18 at 06:00; Stop 12/20/18 at 09:59; Status DC Potassium Chloride (Klor-Con) 40 meq 1X ONCE PO ; Start 12/20/18 at 08:00; Stop 12/20/18 at 08:01; Status DC Acetaminophen (Tylenol Supp) 650 mg PRN Q6HRS PRN MI MILD PAIN / TEMP Last administered on 12/20/18at 14:59; Start 12/20/18 at 07:15 Warfarin Sodium (Coumadin) 7.5 mg 1X WARF ONCE PO ; Start 12/20/18 at 16:00; Stop 12/20/18 at 16:01; Status DC Hydralazine HCl (Apresoline Inj) 10 mg PRN Q4HRS PRN IVP ELEVATED BP, SEE COMMENTS Last administered on 12/22/18at 11:07; Start 12/20/18 at 14:30 Potassium Chloride (Klor-Con) 40 meq 1X ONCE PO ; Start 12/20/18 at 14:30; Stop 12/20/18 at 14:41; Status DC Potassium Chloride (Klor-Con) 20 meq DAILYWBKFT PO ; Start 12/21/18 at 08:00 Albuterol/ Ipratropium (Duoneb) 3 ml RTQID NEB Last administered on 12/24/18at 08:19; Start 12/20/18 at 16:00 Piperacillin Sod/ Tazobactam Sod 3.375 gm/Sodium Chloride 50 ml @ 100 mls/hr Q6HRS IV Last administered on 12/24/18at 05:09; Start 12/20/18 at 16:00 Amino Acids/ Glycerin/ Electrolytes 1,000 ml @ 75 mls/hr [id number] IV Last administered on 12/23/18at 22:17; Start 12/21/18 at 13:00 Warfarin Sodium (Coumadin) 1 mg 1X WARF ONCE PO ; Start 12/21/18 at 16:00; Stop 12/21/18 at 16:01; Status DC Sodium Chloride 1,000 ml @ 75 mls/hr 1X ONCE IV Last administered on 12/21/18at 13:49; Start 12/21/18 at 13:15; Stop 12/22/18 at 02:34; Status DC Potassium Chloride/Water 100 ml @ 100 mls/hr Q1H IV Last administered on 12/22/18at 11:03; Start 12/22/18 at 06:00; Stop 12/22/18 at 09:59; Status DC Sodium Chloride 1,000 ml @ 75 mls/hr 1X ONCE IV Last administered on 12/22/18at 14:49; Start 12/22/18 at 14:30; Stop 12/23/18 at 03:49; Status DC Potassium Chloride 20 meq/ Sodium Chloride 1,010 ml @ 75 mls/hr 1X ONCE IV Last administered on 12/22/18at 17:51; Start 12/22/18 at 16:00; Stop 12/23/18 at 05:27; Status DC Hydralazine HCl (Apresoline Inj) 10 mg Q6HRS IVP Last administered on 12/24/18at 01:12; Start 12/22/18 at 18:00 Potassium Chloride/Water 100 ml @ 100 mls/hr Q1H IV Last administered on 12/23/18at 14:01; Start 12/23/18 at 06:00; Stop 12/23/18 at 09:59; Status DC Potassium Chloride/Water 50 ml @ 50 mls/hr Q1H IV ; Start 12/23/18 at 11:15; Stop 12/23/18 at 13:14; Status UNV Potassium Chloride/Water 100 ml @ 100 mls/hr Q1H IV ; Start 12/23/18 at 11:30; Stop 12/23/18 at 13:04; Status DC Warfarin Sodium (Coumadin - No Dose Today) 1 each 1X WARF ONCE MC Last administered on 12/23/18at 16:00; Start 12/23/18 at 16:00; Stop 12/23/18 at 16:01; Status DC Pantoprazole Sodium (PROTONIX VIAL for IV PUSH) 40 mg DAILYAC IVP Last administered on 12/23/18at 15:21; Start 12/23/18 at 15:00 Active Scripts Active Reported Lorazepam 1 Mg Tablet 1 Tab PO BID Percocet 7.5-325 Mg Tablet (Oxycodone/Acetaminophen) 1 Each Tablet 1 Tab PO PRN Q6HRS PRN Coumadin (Warfarin Sodium) 5 Mg Tablet 1 Tab PO DAILY Lisinopril 20 Mg Tablet 1 Tab PO DAILY Vitals/I & O Vital Sign - Last 24 Hours 12/23/18 12/23/18 12/23/18 12/23/18 11:28 11:59 12:16 14:25 Temp 99.0 98.6 99.0 98.6 Pulse 106 106 108 Resp 16 20 B/P (MAP) 170/96 (120) 170/96 169/90 (116) Pulse Ox 94 96 O2 Delivery Nasal Cannula O2 Flow Rate 2.0 2.0 2.0 12/23/18 12/23/18 12/23/18 12/23/18 15:19 15:51 17:54 19:11 Temp 98.4 98.4 Pulse 108 108 117 Resp 20 B/P (MAP) 169/90 169/90 154/91 (112) Pulse Ox 96 O2 Delivery Nasal Cannula Room Air O2 Flow Rate 2.0 12/23/18 12/23/18 12/23/18 12/23/18 20:18 20:42 21:00 22:16 Pulse 117 117 B/P (MAP) 154/91 154/91 Pulse Ox 96 O2 Delivery Nasal Cannula Nasal Cannula O2 Flow Rate 2.0 2.0 12/23/18 12/24/18 12/24/18 12/24/18 23:53 01:12 05:26 06:25 Temp 98.3 98.1 98.3 98.1 Pulse 121 121 163 146 Resp 20 37 36 B/P (MAP) 150/90 (110) 150/90 102/66 (78) 95/59 (71) Pulse Ox 97 98 O2 Delivery Nasal Cannula Nasal Cannula Nasal Cannula O2 Flow Rate 2.0 2.0 2.0 12/24/18 12/24/18 12/24/18 07:22 08:15 08:20 Pulse 150 B/P (MAP) 104/67 Pulse Ox 100 O2 Delivery Nasal Cannula Nasal Cannula O2 Flow Rate 2.0 2.0 Intake and Output 12/23/18 12/23/18 12/24/18 15:00 23:00 07:00 Output Total 200 ml Balance -200 ml MER DAVIES MD Dec 24, 2018 10:07
--- NOTE | 2018-12-24 10:15 | NUR ---
SS following up with discharge planning. Pt's family requesting [facility] transfer for second opinion. SS contacted transfer team, and spoke with Ijeoma, . Per request, SS phoned and faxed clinical to at [phone]. SS contacted Radiology and requested images be clouded to . SS will await acceptance decision. Pt transferring to ICU due to decline in medical status.
[2018-12-24 10:23] LABS: HEMATOCRIT 23.8 % (39.0-53.0); HEMOGLOBIN 7.5 g/dL (13.0-17.5); RED BLOOD COUNT 2.94 x10^6/uL (4.30-5.70); RED CELL DISTRIBUTION WIDTH 21.1 % (11.5-14.5)
[2018-12-24 10:29] LABS: CREATININE 1.4 mg/dL (0.7-1.3); GFR 52.2; POTASSIUM 4.5 mmol/L (3.5-5.1)
--- NOTE | 2018-12-24 10:30 | NUR ---
Patient down from [address] [place] [address] via bed accompanied by nursing staff. Patient tachypneic breathing 60 per minute and only responds to deep pain (nailbed pressure). Lungs coarse throughout. Blood pressure low 98/43 upon transfer to ICU with heart rate 145
[2018-12-24 10:39] LABS: PROTHROMBIN TIME PATIENT 43.2 SEC (11.7-14.0)
[2018-12-24] MEDS ORDERED: 0.9 % SODIUM CHLORIDE 10 ML DISP.SYRIN. IV PRN (10:45)
[2018-12-24] MEDS ORDERED: ONDANSETRON PF 4 MG/2 ML VIAL. IV PRN (10:45)
[2018-12-24] MEDS ORDERED: LORazepam 1 MG TABLET PO PRN (10:45)
--- NOTE | 2018-12-24 10:45 | NUR ---
PICC Pre-Insertion Note Allergies and reactions NKDA INR 3.4 BUN 27 Cr 0.9 Platelets 507 Blood culture done yes blood culture results negative Order Verified yes Consent signed yes Previous PICC placement unknown Past Medical/Surgical history and current diagnosis reviewed yes Patient Medical /Surgical History Related to PICC line placement Infectious Disease consult Renal consult Septicemia/Bacteremia Special considerations for PICC line placement Infections PICC placement indication [facility] antibiotic usage, Multiple/ Frequent blood draws, Poor peripheral intravenous access name of PICC Nurse Milena Sun RN Addendum: 12/24/18 at 1123 by MAYA SUN RN Amended: Links added.
[2018-12-24 10:55] LABS: BASE EXCESS COOX -14 mmol/L (-3-3); HCO3 COOX 10 mmol/L (21-28); METHEMOGLOBIN 0.5 % (0.0-1.9); OXYHEMOGLOBIN 96.8 %; PO2 COOX 126 mmHg (75-108); SAT O2 COOX 98 % (92-99)
[2018-12-24 10:58] LABS: PCO2 COOX 18 mmHg (35-46)
[2018-12-24] MEDS ORDERED: IV NORMAL SALINE 500ML BAG 500 ML IV PRN (11:00)
[2018-12-24 11:02] LABS: BASO # 0.1 x10^3/uL (0.0-0.2); BASO % 0 % (0-3); EOS % 0 % (0-3); HEMATOCRIT 22.8 % (39.0-53.0); HEMOGLOBIN 7.2 g/dL (13.0-17.5); LYMPH # 1.2 x10^3/uL (1.0-4.8); LYMPH % 7 % (24-48); MEAN CORPUSCULAR HEMOGLOBIN 26 pg (25-35); MEAN CORPUSCULAR HGB CONC 31 g/dL (31-37); MEAN CORPUSCULAR VOLUME 82 fL (79-100); MONO # 1.1 x10^3/uL (0.0-1.1); MONO % 6 % (0-9); NEUT # 14.3 x10^3/uL (1.8-7.7); NEUT % 86 % (31-73); PLATELET COUNT 470 x10^3/uL (140-400); RED BLOOD COUNT 2.79 x10^6/uL (4.30-5.70); RED CELL DISTRIBUTION WIDTH 20.5 % (11.5-14.5); WHITE BLOOD COUNT 16.6 x10^3/uL (4.0-11.0)
--- NOTE | 2018-12-24 11:02 | PDOC2 ---
GI CONSULT Reason For Consult: GI bleeding, ETOH HPI: HPI: 58 y/o patient admitted 12/10/18 - was intoxicated, fell down stairs, and lost consciousness. Change in status this morning, worsening labs, transferred to ICU where I saw w/ Dr. Israel. Per staff, dark stool since Saturday - this morning one "tarry" and one "watery." On Lovenox w/ h/o AVR, has been NPO w/ abnormal swallow eval. 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 Vitals: Vitals: Vital Signs Date Time Temp Pulse Resp B/P (MAP) Pulse Ox O2 Delivery O2 Flow Rate FiO2 12/24/18 08:20 100 Nasal Cannula 2.0 12/24/18 07:22 150 104/67 12/24/18 06:25 36 12/24/18 05:26 98.1 98.1 Labs: Labs: Laboratory Tests Test 12/23/18 23:00 12/24/18 02:05 12/24/18 09:20 12/24/18 10:26 Sodium Level 142 mmol/L (136-145) 143 mmol/L (136-145) 143 mmol/L (136-145) Potassium Level 3.1 mmol/L (3.5-5.1) 3.4 mmol/L (3.5-5.1) 4.5 mmol/L (3.5-5.1) Chloride Level 107 mmol/L (98-107) 109 mmol/L (98-107) 112 mmol/L (98-107) Carbon Dioxide Level 25 mmol/L (21-32) 22 mmol/L (21-32) 19 mmol/L (21-32) Anion Gap 10 (6-14) 12 (6-14) 12 (6-14) Blood Urea Nitrogen 14 mg/dL (8-26) 27 mg/dL (8-26) 55 mg/dL (8-26) Creatinine 0.7 mg/dL (0.7-1.3) 0.9 mg/dL (0.7-1.3) 1.4 mg/dL (0.7-1.3) Estimated GFR (Cockcroft-Gault) 116.2 87.0 52.2 Glucose Level 129 mg/dL (70-99) 158 mg/dL (70-99) 186 mg/dL (70-99) Calcium Level 8.3 mg/dL (8.5-10.1) 8.2 mg/dL (8.5-10.1) 8.0 mg/dL (8.5-10.1) White Blood Count 17.8 x10^3/uL (4.0-11.0) 18.0 x10^3/uL (4.0-11.0) Red Blood Count 3.97 x10^6/uL (4.30-5.70) 2.94 x10^6/uL (4.30-5.70) Hemoglobin 10.1 g/dL (13.0-17.5) 7.5 g/dL (13.0-17.5) Hematocrit 31.6 % (39.0-53.0) 23.8 % (39.0-53.0) Mean Corpuscular Volume 80 fL (79-100) 81 fL (79-100) Mean Corpuscular Hemoglobin 26 pg (25-35) 26 pg (25-35) Mean Corpuscular Hemoglobin Concent 32 g/dL (31-37) 32 g/dL (31-37) Red Cell Distribution Width 21.1 % (11.5-14.5) 21.1 % (11.5-14.5) Platelet Count 507 x10^3/uL (140-400) 443 x10^3/uL (140-400) Neutrophils (%) (Auto) 83 % (31-73) Lymphocytes (%) (Auto) 6 % (24-48) Monocytes (%) (Auto) 9 % (0-9) Eosinophils (%) (Auto) 1 % (0-3) Basophils (%) (Auto) 1 % (0-3) Neutrophils # (Auto) 14.8 x10^3/uL (1.8-7.7) Lymphocytes # (Auto) 1.1 x10^3/uL (1.0-4.8) Monocytes # (Auto) 1.7 x10^3/uL (0.0-1.1) Eosinophils # (Auto) 0.1 x10^3/uL (0.0-0.7) Basophils # (Auto) 0.2 x10^3/uL (0.0-0.2) Prothrombin Time 34.5 SEC (11.7-14.0) Prothromb Time International Ratio 3.4 (0.8-1.1) Lactic Acid Level 2.4 mmol/L (0.4-2.0) Troponin I Quantitative 0.031 ng/mL (0.000-0.055) O2 Saturation 98 % (92-99) Arterial Blood pH 7.36 (7.35-7.45) Arterial Blood pCO2 at Patient Temp 18 mmHg (35-46) Arterial Blood pO2 at Patient Temp 126 mmHg (75-108) Arterial Blood HCO3 10 mmol/L (21-28) Arterial Blood Base Excess -14 mmol/L (-3-3) Oxyhemoglobin 96.8 % Methemoglobin 0.5 % (0.0-1.9) Carbon Monoxide, Quantitative 0.5 % (0.0-1.9) FiO2 36 BLOOD CULTURE Preliminary NO GROWTH AFTER 4 DAYS URINE CULTURE Final Final report URINE CULTURE RES 1 Final No growth Allergies: Coded Allergies: No Known Drug Allergies (Unverified , 10/05/17) Medications: Current Medications Medications (Trade) Dose Ordered Sig/Siddharth Route PRN Reason Start Time Stop Time Status Last Admin Dose Admin Warfarin Sodium (Coumadin - No Dose Today) 1 each 1X WARF ONCE 12/23/18 16:00 12/23/18 16:01 DC 12/23/18 16:00 Pantoprazole Sodium (PROTONIX VIAL for IV PUSH) 40 mg DAILYAC IVP 12/23/18 15:00 12/24/18 10:43 DC 12/23/18 15:21 Imaging: Imaging: CXR 12/24 IMPRESSION: Improved aeration with minimal persistent opacity in the right midlung. Recommend follow-up to resolution. Echocardiogram 12/22 <Conclusion> The left ventricular systolic function is normal and the ejection fraction is within normal range. EF 55% Unable to determine wall motion accurately due to suboptimal images. Technically very difficult study, if there is concern for endocarditis or valvular disease or significant cardiac wall motion abnormalities, suggest DONNA. Bedside Swallow Evaluation 12/21/18 Impression: Limited swallow evaluation d/t pt becoming nauseous. Pt did demonstrate s/s aspiration w/ only a few limited PO trials indicating high aspiration risk for PO. Recommendations: NPO, ST f/u for further evaluation of swallow function and safety. Brain MRI 12/17 Impression: No acute parenchymal abnormality is seen. CT C/A/P 12/10 IMPRESSION: 1. Mild loss of T2 vertebral body height suggests compression deformity or collapsed Schmorl's node, age indeterminate. Clinically correlate with focal tenderness. 2. No acute fractures in the cervical spine. 3. Advanced multilevel degenerative disc disease. IMPRESSION: 1. Mild abnormality of the superior endplate of the T12 vertebral body likely collapsed Schmorl's node or old compression deformity. Clinically correlate with focal tenderness. 2. Mild aneurysmal dilation of the ascending aorta. Head and C-spine CT 12/10 IMPRESSION: 1. Mild loss of T2 vertebral body height suggests compression deformity or collapsed Schmorl's node, age indeterminate. Clinically correlate with focal tenderness. 2. No acute fractures in the cervical spine. 3. Advanced multilevel degenerative disc disease. IMPRESSION: 1. Mild abnormality of the superior endplate of the T12 vertebral body likely collapsed Schmorl's node or old compression deformity. Clinically correlate with focal tenderness. 2. Mild aneurysmal dilation of the ascending aorta. Knee X-ray 12/10 FINDINGS/impression: No acute fracture or dislocation. No joint effusion. PE: GEN: ill HEENT: Atraumatic LUNGS: tachypneic, rhonchi HEART: tachycardic ABD: soft, non-distended EXTREMITY: No edema SKIN: No rashes, no jaundice NEURO/PSYCH: unresponsive A/P: A/P: Melena, anemia, coagulopathy H/o alcoholism Encephalopathy, dysphagia S/p AVR Leukocytosis, LG, hyperammonemia -- Gave vit K x 1. Called by nurse at 11:39 a.m. - pt now intubated - during intubation, red blood noted in esophagus. Reviewed w/ Dr. Israel - transfuse 2 units blood and FFP, place NGT, and plan for EGD this afternoon. Agree w/ PPI drip. OLIVERA-GABRIEL GRANADOS Dec 24, 2018 11:02
--- NOTE | 2018-12-24 11:05 | NUR ---
PICC Insertion Note Procedure: Following complete explanation of the PICC procedure including the indications, risks, and potential complications, informed consent was obtained. The possibility for infection was discussed along with signs, symptoms, and prevention. All the questions were answered. Written and verbal patient education was provided. Hand hygiene performed. Standardized central line checklist was utilized. The patient was placed in the supine position, the arm was prepped with chlorhexidine and patient draped with maximum sterile barrier. 2 mL 1% lidocaine was infiltrated into the skin to provide local anesthesia. A thorough assessment of Right upper extremity completed. Using real-time ultrasound guidance and standardized micro puncture set, the Brachial vein was punctured and a peel away sheath was placed using the modified Seldinger technique. A tip location device was used to ensure adequate catheter placement. The catheter was secured using a securement device and an antimicrobial patch was applied directly on the insertion site followed by a transparent dressing. All ports withdraw blood and flush without resistance. Patient tolerated the procedure without apparent complication(s). Triple Lumen Power PICC placement successful and uncomplicated. Placement verified by EKG tip confirmation system and/or chest x-ray. Tip located in the CAJ/SVC. Complications: none Catheter trimmed at 42cm with 0cm visible at insertion site.
[2018-12-24 11:15] LABS: CALCIUM 8.1 mg/dL (8.5-10.1); CREATININE 1.7 mg/dL (0.7-1.3); GFR 41.8
[2018-12-24] MEDS ORDERED: SODIUM BICARB ADULT 8.4% 50 MEQ/50 ML DISP.SYRIN. IV ONE (11:15)
[2018-12-24] MEDS ORDERED: PHYTONADIONE 10 MG/ML AMPUL. SQ ONE ×3 (11:15→17:00)
[2018-12-24] MEDS: IV NORMAL SALINE 1000ML BAG 1,000 ML IV SCH ×3 (11:16→12:13)
[2018-12-24] MEDS ORDERED: SUCCINYLCHOLINE 200 MG/10 ML VIAL. ONE (11:20)
[2018-12-24 11:21] LABS: ALBUMIN 2.3 g/dL (3.4-5.0); MAGNESIUM 1.9 mg/dL (1.8-2.4); TOTAL BILIRUBIN 0.4 mg/dL (0.2-1.0); TOTAL PROTEIN 4.6 g/dL (6.4-8.2)
[2018-12-24] MEDS ORDERED: MIDAZOLAM HCL/PF 5 MG/5 ML VIAL. ONE (11:21)
[2018-12-24] MEDS ORDERED: ATROPINE 1 MG/10 ML DISP.SYRINGE. ONE (11:30)
[2018-12-24] MEDS ORDERED: EPINEPHrine 1 MG/ML VIAL ONE (11:30)
[2018-12-24] MEDS ORDERED: MIDAZOLAM HCL/PF 2 MG/2 ML VIAL. IV ONE ×2 (11:45→12:15)
[2018-12-24] MEDS ORDERED: EPINEPHrine SYRINGE 1 MG/10 ML SYRINGE IV ONE (11:45)
[2018-12-24] MEDS ORDERED: SUCCINYLCHOLINE 200 MG/10 ML VIAL. IV ONE (11:45)
[2018-12-24] MEDS ORDERED: IV NORMAL SALINE 1000ML BAG 1,000 ML IV ONE (11:45)
[2018-12-24 11:46] LABS: % BANDS 3 % (0-9); % LYMPHS 7 % (24-48); % MONOS 4 % (0-10); % SEGS 86 % (35-66); ANISOCYTOSIS PRESENT; PLT ESTIMATE ADEQUATE (ADEQUATE)
[2018-12-24] MEDS: NOREPINEPHRIN 8MG/250ML PREMIX 250 ML IV PRN ×3 (12:03→20:22)
--- NOTE | 2018-12-24 12:03 | PDOC ---
PULMONARY PROGRESS NOTES Vitals Vital Signs Date Time Temp Pulse Resp B/P (MAP) Pulse Ox O2 Delivery O2 Flow Rate FiO2 12/24/18 11:00 99.0 144 42 104/53 (70) 96 Nasal Cannula 2.0 99.0 Lungs: Clear, Wheezing Labs Laboratory Tests Test 12/22/18 13:11 12/22/18 14:45 12/23/18 03:05 12/23/18 23:00 Glucose (Fingerstick) 168 mg/dL (70-99) Urine Opiates Screen Neg (NEG) Urine Methadone Screen Neg (NEG) Urine Barbiturates Neg (NEG) Urine Phencyclidine Screen Neg (NEG) Urine Amphetamine/Methamphetamine Neg (NEG) Urine Benzodiazepines Screen Pos (NEG) Urine Cocaine Screen Neg (NEG) Urine Cannabinoids Screen Neg (NEG) Urine Ethyl Alcohol Neg (NEG) White Blood Count 12.0 x10^3/uL (4.0-11.0) Red Blood Count 4.58 x10^6/uL (4.30-5.70) Hemoglobin 11.6 g/dL (13.0-17.5) Hematocrit 36.0 % (39.0-53.0) Mean Corpuscular Volume 79 fL (79-100) Mean Corpuscular Hemoglobin 26 pg (25-35) Mean Corpuscular Hemoglobin Concent 32 g/dL (31-37) Red Cell Distribution Width 21.1 % (11.5-14.5) Platelet Count 469 x10^3/uL (140-400) Neutrophils (%) (Auto) 83 % (31-73) Lymphocytes (%) (Auto) 8 % (24-48) Monocytes (%) (Auto) 7 % (0-9) Eosinophils (%) (Auto) 1 % (0-3) Basophils (%) (Auto) 1 % (0-3) Neutrophils # (Auto) 9.9 x10^3/uL (1.8-7.7) Lymphocytes # (Auto) 1.0 x10^3/uL (1.0-4.8) Monocytes # (Auto) 0.9 x10^3/uL (0.0-1.1) Eosinophils # (Auto) 0.1 x10^3/uL (0.0-0.7) Basophils # (Auto) 0.1 x10^3/uL (0.0-0.2) Prothrombin Time 28.7 SEC (11.7-14.0) Prothromb Time International Ratio 2.7 (0.8-1.1) Sodium Level 147 mmol/L (136-145) 142 mmol/L (136-145) Potassium Level 2.8 mmol/L (3.5-5.1) 3.1 mmol/L (3.5-5.1) Chloride Level 107 mmol/L (98-107) 107 mmol/L (98-107) Carbon Dioxide Level 26 mmol/L (21-32) 25 mmol/L (21-32) Anion Gap 14 (6-14) 10 (6-14) Blood Urea Nitrogen 9 mg/dL (8-26) 14 mg/dL (8-26) Creatinine 0.7 mg/dL (0.7-1.3) 0.7 mg/dL (0.7-1.3) Estimated GFR (Cockcroft-Gault) 116.2 116.2 BUN/Creatinine Ratio 13 (6-20) Glucose Level 108 mg/dL (70-99) 129 mg/dL (70-99) Calcium Level 8.8 mg/dL (8.5-10.1) 8.3 mg/dL (8.5-10.1) Total Bilirubin 0.4 mg/dL (0.2-1.0) Aspartate Amino Transf (AST/SGOT) 20 U/L (15-37) Alanine Aminotransferase (ALT/SGPT) 19 U/L (16-63) Alkaline Phosphatase 49 U/L (46-116) Total Protein 6.6 g/dL (6.4-8.2) Albumin 3.2 g/dL (3.4-5.0) Albumin/Globulin Ratio 0.9 (1.0-1.7) Procalcitonin < 0.10 ng/mL (0.00-0.10) Test 12/24/18 02:05 12/24/18 09:20 12/24/18 10:26 12/24/18 10:45 White Blood Count 17.8 x10^3/uL (4.0-11.0) 18.0 x10^3/uL (4.0-11.0) 16.6 x10^3/uL (4.0-11.0) Red Blood Count 3.97 x10^6/uL (4.30-5.70) 2.94 x10^6/uL (4.30-5.70) 2.79 x10^6/uL (4.30-5.70) Hemoglobin 10.1 g/dL (13.0-17.5) 7.5 g/dL (13.0-17.5) 7.2 g/dL (13.0-17.5) Hematocrit 31.6 % (39.0-53.0) 23.8 % (39.0-53.0) 22.8 % (39.0-53.0) Mean Corpuscular Volume 80 fL (79-100) 81 fL (79-100) 82 fL (79-100) Mean Corpuscular Hemoglobin 26 pg (25-35) 26 pg (25-35) 26 pg (25-35) Mean Corpuscular Hemoglobin Concent 32 g/dL (31-37) 32 g/dL (31-37) 31 g/dL (31-37) Red Cell Distribution Width 21.1 % (11.5-14.5) 21.1 % (11.5-14.5) 20.5 % (11.5-14.5) Platelet Count 507 x10^3/uL (140-400) 443 x10^3/uL (140-400) 470 x10^3/uL (140-400) Neutrophils (%) (Auto) 83 % (31-73) 86 % (31-73) Lymphocytes (%) (Auto) 6 % (24-48) 7 % (24-48) Monocytes (%) (Auto) 9 % (0-9) 6 % (0-9) Eosinophils (%) (Auto) 1 % (0-3) 0 % (0-3) Basophils (%) (Auto) 1 % (0-3) 0 % (0-3) Neutrophils # (Auto) 14.8 x10^3/uL (1.8-7.7) 14.3 x10^3/uL (1.8-7.7) Lymphocytes # (Auto) 1.1 x10^3/uL (1.0-4.8) 1.2 x10^3/uL (1.0-4.8) Monocytes # (Auto) 1.7 x10^3/uL (0.0-1.1) 1.1 x10^3/uL (0.0-1.1) Eosinophils # (Auto) 0.1 x10^3/uL (0.0-0.7) 0.0 x10^3/uL (0.0-0.7) Basophils # (Auto) 0.2 x10^3/uL (0.0-0.2) 0.1 x10^3/uL (0.0-0.2) Prothrombin Time 34.5 SEC (11.7-14.0) 43.2 SEC (11.7-14.0) Prothromb Time International Ratio 3.4 (0.8-1.1) 4.5 (0.8-1.1) Sodium Level 143 mmol/L (136-145) 143 mmol/L (136-145) 142 mmol/L (136-145) Potassium Level 3.4 mmol/L (3.5-5.1) 4.5 mmol/L (3.5-5.1) 5.0 mmol/L (3.5-5.1) Chloride Level 109 mmol/L (98-107) 112 mmol/L (98-107) 109 mmol/L (98-107) Carbon Dioxide Level 22 mmol/L (21-32) 19 mmol/L (21-32) 15 mmol/L (21-32) Anion Gap 12 (6-14) 12 (6-14) 18 (6-14) Blood Urea Nitrogen 27 mg/dL (8-26) 55 mg/dL (8-26) 55 mg/dL (8-26) Creatinine 0.9 mg/dL (0.7-1.3) 1.4 mg/dL (0.7-1.3) 1.7 mg/dL (0.7-1.3) Estimated GFR (Cockcroft-Gault) 87.0 52.2 41.8 Glucose Level 158 mg/dL (70-99) 186 mg/dL (70-99) 237 mg/dL (70-99) Calcium Level 8.2 mg/dL (8.5-10.1) 8.0 mg/dL (8.5-10.1) 8.1 mg/dL (8.5-10.1) Lactic Acid Level 2.4 mmol/L (0.4-2.0) Troponin I Quantitative 0.031 ng/mL (0.000-0.055) O2 Saturation 98 % (92-99) Arterial Blood pH 7.36 (7.35-7.45) Arterial Blood pCO2 at Patient Temp 18 mmHg (35-46) Arterial Blood pO2 at Patient Temp 126 mmHg (75-108) Arterial Blood HCO3 10 mmol/L (21-28) Arterial Blood Base Excess -14 mmol/L (-3-3) Oxyhemoglobin 96.8 % Methemoglobin 0.5 % (0.0-1.9) Carbon Monoxide, Quantitative 0.5 % (0.0-1.9) FiO2 36 Segmented Neutrophils % 86 % (35-66) Band Neutrophils % 3 % (0-9) Lymphocytes % 7 % (24-48) Monocytes % 4 % (0-10) Platelet Estimate Adequate (ADEQUATE) Anisocytosis Present BUN/Creatinine Ratio 32 (6-20) Magnesium Level 1.9 mg/dL (1.8-2.4) Total Bilirubin 0.4 mg/dL (0.2-1.0) Aspartate Amino Transf (AST/SGOT) 21 U/L (15-37) Alanine Aminotransferase (ALT/SGPT) 18 U/L (16-63) Alkaline Phosphatase 32 U/L (46-116) Ammonia 92 mcmol/L (11-34) Total Protein 4.6 g/dL (6.4-8.2) Albumin 2.3 g/dL (3.4-5.0) Albumin/Globulin Ratio 1.0 (1.0-1.7) Laboratory Tests Test 12/23/18 23:00 12/24/18 02:05 12/24/18 09:20 12/24/18 10:26 Sodium Level 142 mmol/L (136-145) 143 mmol/L (136-145) 143 mmol/L (136-145) Potassium Level 3.1 mmol/L (3.5-5.1) 3.4 mmol/L (3.5-5.1) 4.5 mmol/L (3.5-5.1) Chloride Level 107 mmol/L (98-107) 109 mmol/L (98-107) 112 mmol/L (98-107) Carbon Dioxide Level 25 mmol/L (21-32) 22 mmol/L (21-32) 19 mmol/L (21-32) Anion Gap 10 (6-14) 12 (6-14) 12 (6-14) Blood Urea Nitrogen 14 mg/dL (8-26) 27 mg/dL (8-26) 55 mg/dL (8-26) Creatinine 0.7 mg/dL (0.7-1.3) 0.9 mg/dL (0.7-1.3) 1.4 mg/dL (0.7-1.3) Estimated GFR (Cockcroft-Gault) 116.2 87.0 52.2 Glucose Level 129 mg/dL (70-99) 158 mg/dL (70-99) 186 mg/dL (70-99) Calcium Level 8.3 mg/dL (8.5-10.1) 8.2 mg/dL (8.5-10.1) 8.0 mg/dL (8.5-10.1) White Blood Count 17.8 x10^3/uL (4.0-11.0) 18.0 x10^3/uL (4.0-11.0) Red Blood Count 3.97 x10^6/uL (4.30-5.70) 2.94 x10^6/uL (4.30-5.70) Hemoglobin 10.1 g/dL (13.0-17.5) 7.5 g/dL (13.0-17.5) Hematocrit 31.6 % (39.0-53.0) 23.8 % (39.0-53.0) Mean Corpuscular Volume 80 fL (79-100) 81 fL (79-100) Mean Corpuscular Hemoglobin 26 pg (25-35) 26 pg (25-35) Mean Corpuscular Hemoglobin Concent 32 g/dL (31-37) 32 g/dL (31-37) Red Cell Distribution Width 21.1 % (11.5-14.5) 21.1 % (11.5-14.5) Platelet Count 507 x10^3/uL (140-400) 443 x10^3/uL (140-400) Neutrophils (%) (Auto) 83 % (31-73) Lymphocytes (%) (Auto) 6 % (24-48) Monocytes (%) (Auto) 9 % (0-9) Eosinophils (%) (Auto) 1 % (0-3) Basophils (%) (Auto) 1 % (0-3) Neutrophils # (Auto) 14.8 x10^3/uL (1.8-7.7) Lymphocytes # (Auto) 1.1 x10^3/uL (1.0-4.8) Monocytes # (Auto) 1.7 x10^3/uL (0.0-1.1) Eosinophils # (Auto) 0.1 x10^3/uL (0.0-0.7) Basophils # (Auto) 0.2 x10^3/uL (0.0-0.2) Prothrombin Time 34.5 SEC (11.7-14.0) 43.2 SEC (11.7-14.0) Prothromb Time International Ratio 3.4 (0.8-1.1) 4.5 (0.8-1.1) Lactic Acid Level 2.4 mmol/L (0.4-2.0) Troponin I Quantitative 0.031 ng/mL (0.000-0.055) O2 Saturation 98 % (92-99) Arterial Blood pH 7.36 (7.35-7.45) Arterial Blood pCO2 at Patient Temp 18 mmHg (35-46) Arterial Blood pO2 at Patient Temp 126 mmHg (75-108) Arterial Blood HCO3 10 mmol/L (21-28) Arterial Blood Base Excess -14 mmol/L (-3-3) Oxyhemoglobin 96.8 % Methemoglobin 0.5 % (0.0-1.9) Carbon Monoxide, Quantitative 0.5 % (0.0-1.9) FiO2 36 Test 12/24/18 10:45 White Blood Count 16.6 x10^3/uL (4.0-11.0) Red Blood Count 2.79 x10^6/uL (4.30-5.70) Hemoglobin 7.2 g/dL (13.0-17.5) Hematocrit 22.8 % (39.0-53.0) Mean Corpuscular Volume 82 fL (79-100) Mean Corpuscular Hemoglobin 26 pg (25-35) Mean Corpuscular Hemoglobin Concent 31 g/dL (31-37) Red Cell Distribution Width 20.5 % (11.5-14.5) Platelet Count 470 x10^3/uL (140-400) Neutrophils (%) (Auto) 86 % (31-73) Lymphocytes (%) (Auto) 7 % (24-48) Monocytes (%) (Auto) 6 % (0-9) Eosinophils (%) (Auto) 0 % (0-3) Basophils (%) (Auto) 0 % (0-3) Neutrophils # (Auto) 14.3 x10^3/uL (1.8-7.7) Lymphocytes # (Auto) 1.2 x10^3/uL (1.0-4.8) Monocytes # (Auto) 1.1 x10^3/uL (0.0-1.1) Eosinophils # (Auto) 0.0 x10^3/uL (0.0-0.7) Basophils # (Auto) 0.1 x10^3/uL (0.0-0.2) Segmented Neutrophils % 86 % (35-66) Band Neutrophils % 3 % (0-9) Lymphocytes % 7 % (24-48) Monocytes % 4 % (0-10) Platelet Estimate Adequate (ADEQUATE) Anisocytosis Present Sodium Level 142 mmol/L (136-145) Potassium Level 5.0 mmol/L (3.5-5.1) Chloride Level 109 mmol/L (98-107) Carbon Dioxide Level 15 mmol/L (21-32) Anion Gap 18 (6-14) Blood Urea Nitrogen 55 mg/dL (8-26) Creatinine 1.7 mg/dL (0.7-1.3) Estimated GFR (Cockcroft-Gault) 41.8 BUN/Creatinine Ratio 32 (6-20) Glucose Level 237 mg/dL (70-99) Calcium Level 8.1 mg/dL (8.5-10.1) Magnesium Level 1.9 mg/dL (1.8-2.4) Total Bilirubin 0.4 mg/dL (0.2-1.0) Aspartate Amino Transf (AST/SGOT) 21 U/L (15-37) Alanine Aminotransferase (ALT/SGPT) 18 U/L (16-63) Alkaline Phosphatase 32 U/L (46-116) Ammonia 92 mcmol/L (11-34) Total Protein 4.6 g/dL (6.4-8.2) Albumin 2.3 g/dL (3.4-5.0) Albumin/Globulin Ratio 1.0 (1.0-1.7) Medications Active Scripts Medications Dose Route/Sig Max Daily Dose Days Date Category Lorazepam 1 Mg Tablet 1 Tab PO BID 12/10/18 Reported Percocet 7.5-325 Mg Tablet (Oxycodone/Acetaminophen) 1 Each Tablet 1 Tab PO PRN Q6HRS PRN 12/10/18 Reported Coumadin (Warfarin Sodium) 5 Mg Tablet 1 Tab PO DAILY 10/06/17 Reported Lisinopril 20 Mg Tablet 1 Tab PO DAILY 10/06/17 Reported Impression . full note dictated ACUTE RESP FAILURE MULTIFACTORIAL ACUTE GI BLEED POSSIBLE SEPSIS MET/TOXIC ENCE PT EMERGENTLY INTUBATED D/W DR HAMILTON AND DR BRIONES WILL SUPPORT IV FLUIDS/TRANSFUSE/FFP/POSSIBLE EGD/IF ANITBX SEE ORDERS D/W WITH FAMILY AT BEDSIDE YOHAN COWAN MD Dec 24, 2018 12:03
--- NOTE | 2018-12-24 12:06 | PDOC4 ---
PROCEDURE Procedure INTUBATED 7.5 ET TUBE NO COMPLICATIONS BRIGHT RED BLOOD IN POSTERIOR PHARYNX WAS VISUALIZED YOHAN COWAN MD Dec 24, 2018 12:06
[2018-12-24] MEDS: DAPTOmycin (GENERIC) IVPB 460 MG in IV NORMAL SALINE 50ML 50 ML IV SCH (12:07)
[2018-12-24] MEDS: PANTOPRAZOLE SODIUM IV DRIP 80 MG in IV NORMAL SALINE 100ML 100 ML IV SCH ×2 (12:08→20:21)
--- NOTE | 2018-12-24 12:10 | RAD ---
EXAM: Chest, single view. HISTORY: Tachypnea. COMPARISON: 12/24/2018 FINDINGS: A frontal view of the chest is obtained. There is stable linear opacity within the right midlung due to infiltrate or scarring. There is similar linear opacity due to atelectasis or scarring within the left mid thorax. There is no pleural effusion or pneumothorax. The heart is normal in size. There is a right PICC with the tip in the superior cavoatrial junction. There are median sternotomy changes. There is an endotracheal tube within the mid trachea. IMPRESSION: 1. Stable right mid thorax infiltrate or scarring and left mid thorax atelectasis or scarring. 2. Right PICC and endotracheal tube in expected position. Electronically signed by: Shania Coleman MD (12/24/2018 12:07 PM) [place] [id number]
--- NOTE | 2018-12-24 12:12 | PDOC ---
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 Transferred to ICU. Minimally responsive, eventually intubated. Blood noted in esophagus when intubated. Input and Output Intake and Output Intake and Output 12/24/18 07:02 Output Total 200 ml Balance -200 ml Output Urine Total 200 ml Laboratory Labs Laboratory Tests Test 12/23/18 23:00 12/24/18 02:05 12/24/18 09:20 12/24/18 10:26 Sodium Level 142 mmol/L (136-145) 143 mmol/L (136-145) 143 mmol/L (136-145) Potassium Level 3.1 mmol/L (3.5-5.1) 3.4 mmol/L (3.5-5.1) 4.5 mmol/L (3.5-5.1) Chloride Level 107 mmol/L (98-107) 109 mmol/L (98-107) 112 mmol/L (98-107) Carbon Dioxide Level 25 mmol/L (21-32) 22 mmol/L (21-32) 19 mmol/L (21-32) Anion Gap 10 (6-14) 12 (6-14) 12 (6-14) Blood Urea Nitrogen 14 mg/dL (8-26) 27 mg/dL (8-26) 55 mg/dL (8-26) Creatinine 0.7 mg/dL (0.7-1.3) 0.9 mg/dL (0.7-1.3) 1.4 mg/dL (0.7-1.3) Estimated GFR (Cockcroft-Gault) 116.2 87.0 52.2 Glucose Level 129 mg/dL (70-99) 158 mg/dL (70-99) 186 mg/dL (70-99) Calcium Level 8.3 mg/dL (8.5-10.1) 8.2 mg/dL (8.5-10.1) 8.0 mg/dL (8.5-10.1) White Blood Count 17.8 x10^3/uL (4.0-11.0) 18.0 x10^3/uL (4.0-11.0) Red Blood Count 3.97 x10^6/uL (4.30-5.70) 2.94 x10^6/uL (4.30-5.70) Hemoglobin 10.1 g/dL (13.0-17.5) 7.5 g/dL (13.0-17.5) Hematocrit 31.6 % (39.0-53.0) 23.8 % (39.0-53.0) Mean Corpuscular Volume 80 fL (79-100) 81 fL (79-100) Mean Corpuscular Hemoglobin 26 pg (25-35) 26 pg (25-35) Mean Corpuscular Hemoglobin Concent 32 g/dL (31-37) 32 g/dL (31-37) Red Cell Distribution Width 21.1 % (11.5-14.5) 21.1 % (11.5-14.5) Platelet Count 507 x10^3/uL (140-400) 443 x10^3/uL (140-400) Neutrophils (%) (Auto) 83 % (31-73) Lymphocytes (%) (Auto) 6 % (24-48) Monocytes (%) (Auto) 9 % (0-9) Eosinophils (%) (Auto) 1 % (0-3) Basophils (%) (Auto) 1 % (0-3) Neutrophils # (Auto) 14.8 x10^3/uL (1.8-7.7) Lymphocytes # (Auto) 1.1 x10^3/uL (1.0-4.8) Monocytes # (Auto) 1.7 x10^3/uL (0.0-1.1) Eosinophils # (Auto) 0.1 x10^3/uL (0.0-0.7) Basophils # (Auto) 0.2 x10^3/uL (0.0-0.2) Prothrombin Time 34.5 SEC (11.7-14.0) 43.2 SEC (11.7-14.0) Prothromb Time International Ratio 3.4 (0.8-1.1) 4.5 (0.8-1.1) Lactic Acid Level 2.4 mmol/L (0.4-2.0) Troponin I Quantitative 0.031 ng/mL (0.000-0.055) O2 Saturation 98 % (92-99) Arterial Blood pH 7.36 (7.35-7.45) Arterial Blood pCO2 at Patient Temp 18 mmHg (35-46) Arterial Blood pO2 at Patient Temp 126 mmHg (75-108) Arterial Blood HCO3 10 mmol/L (21-28) Arterial Blood Base Excess -14 mmol/L (-3-3) Oxyhemoglobin 96.8 % Methemoglobin 0.5 % (0.0-1.9) Carbon Monoxide, Quantitative 0.5 % (0.0-1.9) FiO2 36 Test 12/24/18 10:45 White Blood Count 16.6 x10^3/uL (4.0-11.0) Red Blood Count 2.79 x10^6/uL (4.30-5.70) Hemoglobin 7.2 g/dL (13.0-17.5) Hematocrit 22.8 % (39.0-53.0) Mean Corpuscular Volume 82 fL (79-100) Mean Corpuscular Hemoglobin 26 pg (25-35) Mean Corpuscular Hemoglobin Concent 31 g/dL (31-37) Red Cell Distribution Width 20.5 % (11.5-14.5) Platelet Count 470 x10^3/uL (140-400) Neutrophils (%) (Auto) 86 % (31-73) Lymphocytes (%) (Auto) 7 % (24-48) Monocytes (%) (Auto) 6 % (0-9) Eosinophils (%) (Auto) 0 % (0-3) Basophils (%) (Auto) 0 % (0-3) Neutrophils # (Auto) 14.3 x10^3/uL (1.8-7.7) Lymphocytes # (Auto) 1.2 x10^3/uL (1.0-4.8) Monocytes # (Auto) 1.1 x10^3/uL (0.0-1.1) Eosinophils # (Auto) 0.0 x10^3/uL (0.0-0.7) Basophils # (Auto) 0.1 x10^3/uL (0.0-0.2) Segmented Neutrophils % 86 % (35-66) Band Neutrophils % 3 % (0-9) Lymphocytes % 7 % (24-48) Monocytes % 4 % (0-10) Platelet Estimate Adequate (ADEQUATE) Anisocytosis Present Sodium Level 142 mmol/L (136-145) Potassium Level 5.0 mmol/L (3.5-5.1) Chloride Level 109 mmol/L (98-107) Carbon Dioxide Level 15 mmol/L (21-32) Anion Gap 18 (6-14) Blood Urea Nitrogen 55 mg/dL (8-26) Creatinine 1.7 mg/dL (0.7-1.3) Estimated GFR (Cockcroft-Gault) 41.8 BUN/Creatinine Ratio 32 (6-20) Glucose Level 237 mg/dL (70-99) Calcium Level 8.1 mg/dL (8.5-10.1) Magnesium Level 1.9 mg/dL (1.8-2.4) Total Bilirubin 0.4 mg/dL (0.2-1.0) Aspartate Amino Transf (AST/SGOT) 21 U/L (15-37) Alanine Aminotransferase (ALT/SGPT) 18 U/L (16-63) Alkaline Phosphatase 32 U/L (46-116) Ammonia 92 mcmol/L (11-34) Total Protein 4.6 g/dL (6.4-8.2) Albumin 2.3 g/dL (3.4-5.0) Albumin/Globulin Ratio 1.0 (1.0-1.7) Microbiology Micro Microbiology 12/20/18 Blood Culture - Preliminary, Resulted NO GROWTH AFTER 3 DAYS 12/20/18 Urine Culture - Final, Complete 12/20/18 Urine Culture Result 1 (AMARA) - Final, Complete Review of Systems Constitutional: yes: alert, oriented Ears/Nose/Throat: Yes: no symptom reported Eyes: Yes: no symptom reported Pulmonary: Yes no symptom reported Cardiovascular: Yes no symptom reported Gastrointestional: Yes: no symptom reported Genitourinary: Yes: no symptom reported Musculoskeletal: Yes: no symptom reported Skin: Yes no symptom reported Physical Exam HEENT: Neck Supple W Full Motion Chest: Symmetric LUNGS: Other (intubated with mechanical vent) Heart: RRR (ST) Abdomen: Other (soft) Extremities: Other (trace LE edema ) Neurology: other (unresponsive) Assessment Assessment 1. Mechanical fall secondary to intoxication 2. Aortic stenosis s/p mechanical aortic valve; OAC with warfarin INR 4.5. s/p vit K and FFP. Echo with LVEF 55%. Images suboptimal 3. Metabolic, toxic encephalopathy 4. Dysphagia 5. Fevers, low-grade. BC negative thus far. ID following 6. Hypertension; now hypotensive requiring pressor support. 7. PAFIB; maintaining ST, which is reactive 8. LG 9. ETOH abuse 10. Acute respiratory failure; s/p intubation 11. GI bleed; hgb drop to 7.2. Blood noted in stool and in esophagus when intubating. EGD planned later today. Recommendations Critically ill Hold warfarin therapy for now given significant bleeding PPI gtt. Pressor support as warranted Dig IV PRN for tachycardia Supportive care ANN-MARIE CARY MD 12/25/18 0854: CARDIO Progress Notes Assessment Assessment Patient seen and examined 12/24/18. Agree with PEDIATRICS PHYSICIAN's assessment and plan. Telemetry showed episodes of A. fib with RVR but presently in sinus tachycardia, probably physiologic Continue amiodarone infusion for rhythm maintenance Continue GI workup for gastrointestinal bleed Continue vent management per pulmonary team Guarded prognosis MIS GASPAR APRN Dec 24, 2018 12:12 ANN-MARIE CARY MD Dec 25, 2018 08:54
--- NOTE | 2018-12-24 12:22 | OP ---
DATE OF SURGERY: 12/24/2018 ATTENDING PHYSICIAN: Alee Solis DO PROCEDURE: Emergent intubation. INDICATIONS: The patient is hemodynamically unstable to acute gastrointestinal bleed, undergoing emergent intubation utilizing a GlideScope. DESCRIPTION OF PROCEDURE: The patient was sedated with a total of 2 mg of Versed and 60 mg of succinylcholine. Utilizing a GlideScope, I was able to visualize the vocal cords. There was bright red blood in the posterior pharynx, which was aspirated away. A 7.5 endotracheal tube was passed through the vocal cords into the proximal trachea. There was bilateral breath sounds auscultated. There was good end-tidal CO2 color change. The ET tube was secured at the mouth at 24 cm. Throughout the procedure, the patient maintained saturations above 95%. Hemodynamically, he was stable. His blood pressure actually guillaume from 90 to systolic over 110 throughout the procedure. IMPRESSION: Acute respiratory failure, multifactorial. PLAN: Emergent intubation for hemodynamic instability and acute gastrointestinal blood loss. YOHAN COWAN MD DR: JUAN PABLO/juanita JOB#: [id number] / [id number]
[2018-12-24] MEDS: MIDAZOLAM 100mg/100ml NS BAG 100 ML IV PRN ×2 (12:27→21:58)
--- NOTE | 2018-12-24 12:28 | CONS ---
DATE OF CONSULTATION: 12/24/2018 ATTENDING PHYSICIAN: Dr. Solis. REASON FOR CONSULTATION: The patient seen in pulmonary consultation at the request of Dr. Bose for acute respiratory distress, hypotension. HISTORY OF PRESENT ILLNESS: The patient is a 58-year-old male that presented on 12/10/2018 in the Emergency Department. He was basically inebriated, fell and suffered a laceration to his scalp. The patient also, at the time of admission, had a sodium of 119. He underwent a CT chest, abdomen and pelvis back in 12/10/2018. The CT head revealed no acute intracranial hemorrhage. CT cervical spine revealed no acute fractures. CT chest revealed mild abnormality of the superior endplate of T12, mild aneurysm, dilatation of the ascending aorta. There was no pneumothorax. He did have some mild emphysema. No consolidation. Since then, the patient has had multiple consultations including cardiac, Neurology. Dr. Bose called me earlier today with the patient's clinical deterioration. Dr. Bose saw the patient on 12/21/2018 with fever, suspect aspiration, alcohol withdrawal and possible sepsis. He was started on Zosyn. Today, the patient's clinical status deteriorated. Once again, I discussed the case with Dr. Bose on several occasions. The patient was noted to have dark tarry stools. He became more encephalopathic. His T-max today was 99. His vital signs revealed tachycardia, blood pressure dropped. The patient was transferred to the intensive care unit. An arterial blood gas was obtained revealing a pH of 7.36, PaCO2 of 18, pO2 126, bicarbonate was 10. The patient was given 1 amp of bicarbonate. I was called with the above information. I emergently came to the intensive care unit and intubated the patient utilizing a GlideScope. Please see the separate note for details. The patient's blood pressure remained systolic of 90. He was given some IV fluids. His systolic guillaume to 110. His O2 sats during the time of my evaluation remained above 95%. He had elevated respiratory rate. He was unresponsive. LABORATORY DATA: Latest Electrolytes were noted. Sodium was 143, potassium was 3.4, chloride was 109, BUN was 27, creatinine was normal. His glucose level was 158, calcium was low 1.2. He had a procalcitonin 2 days ago of 0.10. White count was 16,000, hemoglobin has gone from an average of about 10 down to 7.2. His INR this morning was 4.5. He was anticoagulated for AFib. He also has mitral insufficiency. He has had a previous bioprosthetic aortic valve in 2006 that developed stenosis. He had a reoperation with the mechanical aortic valve replaced in 2011. PAST MEDICAL HISTORY: Quite complex. He has a history of AFib, hypertension, hyperlipidemia, valvular insufficiency as indicated above. He has had a mechanical aortic valve replaced in 2012. There is a history of alcoholism, anxiety, depression, chronic pain, COPD, history of possible seizures, gastroesophageal reflux, benign prostatic hypertrophy. PAST SURGICAL HISTORY: As above. He has had previous aortic valve repair and replacement. FAMILY HISTORY: Hypertension. SOCIAL HISTORY: He has a history of alcoholism and marijuana use. Not sure if he was utilizing tobacco. ALLERGIES: No known drug allergies. CURRENT MEDICATIONS: List was reviewed. REVIEW OF SYSTEMS: Unobtainable secondary to the patient's condition. PHYSICAL EXAMINATION: GENERAL: The patient was in the intensive care unit. VITAL SIGNS: Once again, his vital signs were noted. Hemodynamically unstable at the time of my evaluation, unresponsive except to severe painful stimuli. HEENT: Eyes, the sclerae were nonicteric. NECK: Jugular venous distention was not elevated. No lymphadenopathy. CHEST: Full expansion. LUNGS: Bilateral rhonchi. No wheezes. CARDIOVASCULAR: Tachycardic with S1, S2, no S3. ABDOMEN: Soft, nondistended. EXTREMITIES: Some mottling, but no peripheral cyanosis. Peripheral pulses were diminished. Labs, as indicated above, INR was 4.5. White count was elevated. Hemoglobin and hematocrit decreased. Toxicology screen on 12/22/2018 was negative. His alcohol level upon admission was 231. UA was noted. Serology negative for C. diff. Chest x-ray from this morning revealed minimal persistent opacities in the right mid lung. IMPRESSION: 1. Acute respiratory failure secondary to severe metabolic acidosis. 2. Metabolic acidosis. 3. Septic shock versus acute volemic shock. 4. Leukocytosis. 5. Acute drop in hemoglobin. 6. Alcoholism. 7. Hyponatremia, improved. 8. Protein malnutrition. 9. Metabolic toxic encephalopathy. 10. Possible aspiration. 11. Fever. 12. History of seizures. 13. Chronic obstructive pulmonary disease. 14. Hypertension. 15. Peripheral neuropathy. 16. Status post aortic valve replacement for aortic stenosis. PLAN: 1. As indicated above, the patient was emergently intubated secondary to his hemodynamic instability and mental status change. 2. IV fluids. 3. IV sodium bicarbonate. 4. Case discussed with Dr. Bose and Dr. Israel. Possible EGD today. 5. Consult the Hematology. 6. Possible reversal of his coagulopathy. 7. Empiric antibiotics. 8. We will defer for additional neurological diagnostic studies to Neurology. 9. Bolus normal saline. If the patient continues to be hypotensive, we will initiate pressors to maintain mean arterial pressure above 60. 10. Follow up on blood cultures. Lactic acid level, ammonia level. The above was discussed with family members; both brother and father at the bedside. Total cumulative critical care time of 65 minutes excluding time to intubate. YOHAN COWAN MD DR: JUAN PABLO/nts JOB#: [id number] / [id number]
[2018-12-24] MEDS ORDERED: METOCLOPRAMIDE HCL 10 MG/2 ML VIAL. IVP ONE (12:45)
[2018-12-24] MEDS: VASOPRESSIN 40 UNIT in IV DEXTROSE 5% 100ML 100 ML IV PRN (13:17)
--- NOTE | 2018-12-24 13:21 | PDOC ---
PROGRESS NOTES Chief Complaint Chief Complaint IMPRESSION impression 12/24 became SOA, HAD dark stool, now tachypnic will transfer to icu stat, chk NH4,stat CONSULT GI, PROTONIX DRIP, consult pulmonary, type and screen Fall ETOH withdrawal , severe Toxic encephalopathy Altered mental status, worse today Tachycardia SEVERE ALCOHOL ABUSE DYSPHAGIA POSSIBLE ASPIRATION 12/23New bandlike density in the right midlung which may represent subsegmental atelectasis versus infiltrate. Short-term follow-up radiograph is recommended to ensure resolution. 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 PPN, ///CONT IV ZOSYN 1 NS BOLUS X 1 LITER 12/23 CONSULT Nephrology serum and urine osmolality REPLACE K IV 40MEQ X 1 12/23 34 min cc time History of Present Illness History of Present Illness 12/24/18 Pt seen and examined bedside INC soa, tachy, dark stool x 2 altered mental status Was resting in BED DW RN; Charts and labs reviewed replace k FAILED SWALLOW TEST POOR PROGNOSIS CHK SERUM OSMOLALITY pending d/w DR HAMILTON 34 min pt exam, chart review CC TIME , > 50% of time spent with exam, chart review, pt care coordination 12/17/18 Pt seen and examined in ICU PT still sedated PEGGY RN that she tried to wean the patient off of Precedex but he continued to be combative so she had to continue the sedation meds Consulted neurology to make sure there isn't other pathology causing his mental status change Charts and labs reviewed NA 143 12/16/18 Pt seen and examined in the ICU Pt is sedated with IV Precedex PEGGY AVALOS Pt was combative in the morning Charts and labs reviewed Na: 140 12/15/18 Pt seen and examined in the ICU Pt's son was seen leaving the room Pt is still sedated with Precedex Pt requested pain medications Chart and labs reviewed Hyponatremia resolved Pt is bradycardic with rate of 50 D/w RN 12/14/18 Pt seen and examined in the ICU Pt still sedated with Precedex INR 1.1 Hyponatremia has resolved PEGGY RN Reviewed chart 12/13/18 Pt seen and examined in the ICU Pt was combative and trying to get out of bed all morning. Pt was given Ativan, Haldol, Benadryl, Zyprexa and finally Fentanyl for patient safety. He was comfortably snoring. Discussed with son who was glad to see the pt finally asleep. PEGGY RN Vitals Vitals Vital Signs Date Time Temp Pulse Resp B/P (MAP) Pulse Ox O2 Delivery O2 Flow Rate FiO2 12/24/18 12:51 144 85/51 (62) 100 Ventilator 12/24/18 12:38 99.5 31 99.5 12/24/18 11:45 2.0 Physical Exam Physical Exam GENERAL: confusion NOT answering questions HEENT: Pupils are equally round and reactive. Oropharynx is pink and dry. NECK: Supple. LUNGS: Clear to auscultation. rr = 30 HEART: S1, S2. ABDOMEN: Obese, soft, and nontender with bowel sounds present. EXTREMITIES: No gross edema or cyanosis. Mittens SKIN: Warm to touch. No signs of rash.some healing scraps NEUROLOGIC: encephalophic General: Cooperative, No acute distress, moderate distress, Other (confused , TACHYPNIC) Heart: Regular rate, Normal S1, Normal S2, No murmurs, Other (valvular click, TACHY 145) Lungs: Clear, Wheezing Abdomen: Normal bowel sounds, Soft, No tenderness, No masses Extremities: No cyanosis, Other (trace bilateral LE edema ) Skin: No significant lesion Labs LABS Laboratory Tests Test 12/23/18 23:00 12/24/18 02:05 12/24/18 09:20 12/24/18 10:26 Sodium Level 142 mmol/L (136-145) 143 mmol/L (136-145) 143 mmol/L (136-145) Potassium Level 3.1 mmol/L (3.5-5.1) 3.4 mmol/L (3.5-5.1) 4.5 mmol/L (3.5-5.1) Chloride Level 107 mmol/L (98-107) 109 mmol/L (98-107) 112 mmol/L (98-107) Carbon Dioxide Level 25 mmol/L (21-32) 22 mmol/L (21-32) 19 mmol/L (21-32) Anion Gap 10 (6-14) 12 (6-14) 12 (6-14) Blood Urea Nitrogen 14 mg/dL (8-26) 27 mg/dL (8-26) 55 mg/dL (8-26) Creatinine 0.7 mg/dL (0.7-1.3) 0.9 mg/dL (0.7-1.3) 1.4 mg/dL (0.7-1.3) Estimated GFR (Cockcroft-Gault) 116.2 87.0 52.2 Glucose Level 129 mg/dL (70-99) 158 mg/dL (70-99) 186 mg/dL (70-99) Calcium Level 8.3 mg/dL (8.5-10.1) 8.2 mg/dL (8.5-10.1) 8.0 mg/dL (8.5-10.1) White Blood Count 17.8 x10^3/uL (4.0-11.0) 18.0 x10^3/uL (4.0-11.0) Red Blood Count 3.97 x10^6/uL (4.30-5.70) 2.94 x10^6/uL (4.30-5.70) Hemoglobin 10.1 g/dL (13.0-17.5) 7.5 g/dL (13.0-17.5) Hematocrit 31.6 % (39.0-53.0) 23.8 % (39.0-53.0) Mean Corpuscular Volume 80 fL (79-100) 81 fL (79-100) Mean Corpuscular Hemoglobin 26 pg (25-35) 26 pg (25-35) Mean Corpuscular Hemoglobin Concent 32 g/dL (31-37) 32 g/dL (31-37) Red Cell Distribution Width 21.1 % (11.5-14.5) 21.1 % (11.5-14.5) Platelet Count 507 x10^3/uL (140-400) 443 x10^3/uL (140-400) Neutrophils (%) (Auto) 83 % (31-73) Lymphocytes (%) (Auto) 6 % (24-48) Monocytes (%) (Auto) 9 % (0-9) Eosinophils (%) (Auto) 1 % (0-3) Basophils (%) (Auto) 1 % (0-3) Neutrophils # (Auto) 14.8 x10^3/uL (1.8-7.7) Lymphocytes # (Auto) 1.1 x10^3/uL (1.0-4.8) Monocytes # (Auto) 1.7 x10^3/uL (0.0-1.1) Eosinophils # (Auto) 0.1 x10^3/uL (0.0-0.7) Basophils # (Auto) 0.2 x10^3/uL (0.0-0.2) Prothrombin Time 34.5 SEC (11.7-14.0) 43.2 SEC (11.7-14.0) Prothromb Time International Ratio 3.4 (0.8-1.1) 4.5 (0.8-1.1) Lactic Acid Level 2.4 mmol/L (0.4-2.0) Troponin I Quantitative 0.031 ng/mL (0.000-0.055) O2 Saturation 98 % (92-99) Arterial Blood pH 7.36 (7.35-7.45) Arterial Blood pCO2 at Patient Temp 18 mmHg (35-46) Arterial Blood pO2 at Patient Temp 126 mmHg (75-108) Arterial Blood HCO3 10 mmol/L (21-28) Arterial Blood Base Excess -14 mmol/L (-3-3) Oxyhemoglobin 96.8 % Methemoglobin 0.5 % (0.0-1.9) Carbon Monoxide, Quantitative 0.5 % (0.0-1.9) FiO2 36 Test 12/24/18 10:45 White Blood Count 16.6 x10^3/uL (4.0-11.0) Red Blood Count 2.79 x10^6/uL (4.30-5.70) Hemoglobin 7.2 g/dL (13.0-17.5) Hematocrit 22.8 % (39.0-53.0) Mean Corpuscular Volume 82 fL (79-100) Mean Corpuscular Hemoglobin 26 pg (25-35) Mean Corpuscular Hemoglobin Concent 31 g/dL (31-37) Red Cell Distribution Width 20.5 % (11.5-14.5) Platelet Count 470 x10^3/uL (140-400) Neutrophils (%) (Auto) 86 % (31-73) Lymphocytes (%) (Auto) 7 % (24-48) Monocytes (%) (Auto) 6 % (0-9) Eosinophils (%) (Auto) 0 % (0-3) Basophils (%) (Auto) 0 % (0-3) Neutrophils # (Auto) 14.3 x10^3/uL (1.8-7.7) Lymphocytes # (Auto) 1.2 x10^3/uL (1.0-4.8) Monocytes # (Auto) 1.1 x10^3/uL (0.0-1.1) Eosinophils # (Auto) 0.0 x10^3/uL (0.0-0.7) Basophils # (Auto) 0.1 x10^3/uL (0.0-0.2) Segmented Neutrophils % 86 % (35-66) Band Neutrophils % 3 % (0-9) Lymphocytes % 7 % (24-48) Monocytes % 4 % (0-10) Platelet Estimate Adequate (ADEQUATE) Anisocytosis Present Sodium Level 142 mmol/L (136-145) Potassium Level 5.0 mmol/L (3.5-5.1) Chloride Level 109 mmol/L (98-107) Carbon Dioxide Level 15 mmol/L (21-32) Anion Gap 18 (6-14) Blood Urea Nitrogen 55 mg/dL (8-26) Creatinine 1.7 mg/dL (0.7-1.3) Estimated GFR (Cockcroft-Gault) 41.8 BUN/Creatinine Ratio 32 (6-20) Glucose Level 237 mg/dL (70-99) Calcium Level 8.1 mg/dL (8.5-10.1) Magnesium Level 1.9 mg/dL (1.8-2.4) Total Bilirubin 0.4 mg/dL (0.2-1.0) Aspartate Amino Transf (AST/SGOT) 21 U/L (15-37) Alanine Aminotransferase (ALT/SGPT) 18 U/L (16-63) Alkaline Phosphatase 32 U/L (46-116) Ammonia 92 mcmol/L (11-34) Total Protein 4.6 g/dL (6.4-8.2) Albumin 2.3 g/dL (3.4-5.0) Albumin/Globulin Ratio 1.0 (1.0-1.7) Procalcitonin 0.64 ng/mL (0.00-0.10) Assessment and Plan Assessmemt and Plan Problems Medical Problems: (1) Alcohol abuse Status: Acute (2) Closed head injury Status: Acute Comment Review of Relevant I have reviewed the following items robert (where applicable) has been applied. Labs Laboratory Tests Test 12/22/18 14:45 12/23/18 03:05 12/23/18 23:00 12/24/18 02:05 Urine Osmolality 534 mOsmol/kg (.) Urine Opiates Screen Neg (NEG) Urine Methadone Screen Neg (NEG) Urine Barbiturates Neg (NEG) Urine Phencyclidine Screen Neg (NEG) Urine Amphetamine/Methamphetamine Neg (NEG) Urine Benzodiazepines Screen Pos (NEG) Urine Cocaine Screen Neg (NEG) Urine Cannabinoids Screen Neg (NEG) Urine Ethyl Alcohol Neg (NEG) White Blood Count 12.0 x10^3/uL (4.0-11.0) 17.8 x10^3/uL (4.0-11.0) Red Blood Count 4.58 x10^6/uL (4.30-5.70) 3.97 x10^6/uL (4.30-5.70) Hemoglobin 11.6 g/dL (13.0-17.5) 10.1 g/dL (13.0-17.5) Hematocrit 36.0 % (39.0-53.0) 31.6 % (39.0-53.0) Mean Corpuscular Volume 79 fL (79-100) 80 fL (79-100) Mean Corpuscular Hemoglobin 26 pg (25-35) 26 pg (25-35) Mean Corpuscular Hemoglobin Concent 32 g/dL (31-37) 32 g/dL (31-37) Red Cell Distribution Width 21.1 % (11.5-14.5) 21.1 % (11.5-14.5) Platelet Count 469 x10^3/uL (140-400) 507 x10^3/uL (140-400) Neutrophils (%) (Auto) 83 % (31-73) 83 % (31-73) Lymphocytes (%) (Auto) 8 % (24-48) 6 % (24-48) Monocytes (%) (Auto) 7 % (0-9) 9 % (0-9) Eosinophils (%) (Auto) 1 % (0-3) 1 % (0-3) Basophils (%) (Auto) 1 % (0-3) 1 % (0-3) Neutrophils # (Auto) 9.9 x10^3/uL (1.8-7.7) 14.8 x10^3/uL (1.8-7.7) Lymphocytes # (Auto) 1.0 x10^3/uL (1.0-4.8) 1.1 x10^3/uL (1.0-4.8) Monocytes # (Auto) 0.9 x10^3/uL (0.0-1.1) 1.7 x10^3/uL (0.0-1.1) Eosinophils # (Auto) 0.1 x10^3/uL (0.0-0.7) 0.1 x10^3/uL (0.0-0.7) Basophils # (Auto) 0.1 x10^3/uL (0.0-0.2) 0.2 x10^3/uL (0.0-0.2) Prothrombin Time 28.7 SEC (11.7-14.0) 34.5 SEC (11.7-14.0) Prothromb Time International Ratio 2.7 (0.8-1.1) 3.4 (0.8-1.1) Sodium Level 147 mmol/L (136-145) 142 mmol/L (136-145) 143 mmol/L (136-145) Potassium Level 2.8 mmol/L (3.5-5.1) 3.1 mmol/L (3.5-5.1) 3.4 mmol/L (3.5-5.1) Chloride Level 107 mmol/L (98-107) 107 mmol/L (98-107) 109 mmol/L (98-107) Carbon Dioxide Level 26 mmol/L (21-32) 25 mmol/L (21-32) 22 mmol/L (21-32) Anion Gap 14 (6-14) 10 (6-14) 12 (6-14) Blood Urea Nitrogen 9 mg/dL (8-26) 14 mg/dL (8-26) 27 mg/dL (8-26) Creatinine 0.7 mg/dL (0.7-1.3) 0.7 mg/dL (0.7-1.3) 0.9 mg/dL (0.7-1.3) Estimated GFR (Cockcroft-Gault) 116.2 116.2 87.0 BUN/Creatinine Ratio 13 (6-20) Glucose Level 108 mg/dL (70-99) 129 mg/dL (70-99) 158 mg/dL (70-99) Calcium Level 8.8 mg/dL (8.5-10.1) 8.3 mg/dL (8.5-10.1) 8.2 mg/dL (8.5-10.1) Total Bilirubin 0.4 mg/dL (0.2-1.0) Aspartate Amino Transf (AST/SGOT) 20 U/L (15-37) Alanine Aminotransferase (ALT/SGPT) 19 U/L (16-63) Alkaline Phosphatase 49 U/L (46-116) Total Protein 6.6 g/dL (6.4-8.2) Albumin 3.2 g/dL (3.4-5.0) Albumin/Globulin Ratio 0.9 (1.0-1.7) Procalcitonin < 0.10 ng/mL (0.00-0.10) Test 12/24/18 09:20 12/24/18 10:26 12/24/18 10:45 White Blood Count 18.0 x10^3/uL (4.0-11.0) 16.6 x10^3/uL (4.0-11.0) Red Blood Count 2.94 x10^6/uL (4.30-5.70) 2.79 x10^6/uL (4.30-5.70) Hemoglobin 7.5 g/dL (13.0-17.5) 7.2 g/dL (13.0-17.5) Hematocrit 23.8 % (39.0-53.0) 22.8 % (39.0-53.0) Mean Corpuscular Volume 81 fL (79-100) 82 fL (79-100) Mean Corpuscular Hemoglobin 26 pg (25-35) 26 pg (25-35) Mean Corpuscular Hemoglobin Concent 32 g/dL (31-37) 31 g/dL (31-37) Red Cell Distribution Width 21.1 % (11.5-14.5) 20.5 % (11.5-14.5) Platelet Count 443 x10^3/uL (140-400) 470 x10^3/uL (140-400) Prothrombin Time 43.2 SEC (11.7-14.0) Prothromb Time International Ratio 4.5 (0.8-1.1) Sodium Level 143 mmol/L (136-145) 142 mmol/L (136-145) Potassium Level 4.5 mmol/L (3.5-5.1) 5.0 mmol/L (3.5-5.1) Chloride Level 112 mmol/L (98-107) 109 mmol/L (98-107) Carbon Dioxide Level 19 mmol/L (21-32) 15 mmol/L (21-32) Anion Gap 12 (6-14) 18 (6-14) Blood Urea Nitrogen 55 mg/dL (8-26) 55 mg/dL (8-26) Creatinine 1.4 mg/dL (0.7-1.3) 1.7 mg/dL (0.7-1.3) Estimated GFR (Cockcroft-Gault) 52.2 41.8 Glucose Level 186 mg/dL (70-99) 237 mg/dL (70-99) Lactic Acid Level 2.4 mmol/L (0.4-2.0) Calcium Level 8.0 mg/dL (8.5-10.1) 8.1 mg/dL (8.5-10.1) Troponin I Quantitative 0.031 ng/mL (0.000-0.055) O2 Saturation 98 % (92-99) Arterial Blood pH 7.36 (7.35-7.45) Arterial Blood pCO2 at Patient Temp 18 mmHg (35-46) Arterial Blood pO2 at Patient Temp 126 mmHg (75-108) Arterial Blood HCO3 10 mmol/L (21-28) Arterial Blood Base Excess -14 mmol/L (-3-3) Oxyhemoglobin 96.8 % Methemoglobin 0.5 % (0.0-1.9) Carbon Monoxide, Quantitative 0.5 % (0.0-1.9) FiO2 36 Neutrophils (%) (Auto) 86 % (31-73) Lymphocytes (%) (Auto) 7 % (24-48) Monocytes (%) (Auto) 6 % (0-9) Eosinophils (%) (Auto) 0 % (0-3) Basophils (%) (Auto) 0 % (0-3) Neutrophils # (Auto) 14.3 x10^3/uL (1.8-7.7) Lymphocytes # (Auto) 1.2 x10^3/uL (1.0-4.8) Monocytes # (Auto) 1.1 x10^3/uL (0.0-1.1) Eosinophils # (Auto) 0.0 x10^3/uL (0.0-0.7) Basophils # (Auto) 0.1 x10^3/uL (0.0-0.2) Segmented Neutrophils % 86 % (35-66) Band Neutrophils % 3 % (0-9) Lymphocytes % 7 % (24-48) Monocytes % 4 % (0-10) Platelet Estimate Adequate (ADEQUATE) Anisocytosis Present BUN/Creatinine Ratio 32 (6-20) Magnesium Level 1.9 mg/dL (1.8-2.4) Total Bilirubin 0.4 mg/dL (0.2-1.0) Aspartate Amino Transf (AST/SGOT) 21 U/L (15-37) Alanine Aminotransferase (ALT/SGPT) 18 U/L (16-63) Alkaline Phosphatase 32 U/L (46-116) Ammonia 92 mcmol/L (11-34) Total Protein 4.6 g/dL (6.4-8.2) Albumin 2.3 g/dL (3.4-5.0) Albumin/Globulin Ratio 1.0 (1.0-1.7) Procalcitonin 0.64 ng/mL (0.00-0.10) Laboratory Tests Test 12/23/18 23:00 12/24/18 02:05 12/24/18 09:20 12/24/18 10:26 Sodium Level 142 mmol/L (136-145) 143 mmol/L (136-145) 143 mmol/L (136-145) Potassium Level 3.1 mmol/L (3.5-5.1) 3.4 mmol/L (3.5-5.1) 4.5 mmol/L (3.5-5.1) Chloride Level 107 mmol/L (98-107) 109 mmol/L (98-107) 112 mmol/L (98-107) Carbon Dioxide Level 25 mmol/L (21-32) 22 mmol/L (21-32) 19 mmol/L (21-32) Anion Gap 10 (6-14) 12 (6-14) 12 (6-14) Blood Urea Nitrogen 14 mg/dL (8-26) 27 mg/dL (8-26) 55 mg/dL (8-26) Creatinine 0.7 mg/dL (0.7-1.3) 0.9 mg/dL (0.7-1.3) 1.4 mg/dL (0.7-1.3) Estimated GFR (Cockcroft-Gault) 116.2 87.0 52.2 Glucose Level 129 mg/dL (70-99) 158 mg/dL (70-99) 186 mg/dL (70-99) Calcium Level 8.3 mg/dL (8.5-10.1) 8.2 mg/dL (8.5-10.1) 8.0 mg/dL (8.5-10.1) White Blood Count 17.8 x10^3/uL (4.0-11.0) 18.0 x10^3/uL (4.0-11.0) Red Blood Count 3.97 x10^6/uL (4.30-5.70) 2.94 x10^6/uL (4.30-5.70) Hemoglobin 10.1 g/dL (13.0-17.5) 7.5 g/dL (13.0-17.5) Hematocrit 31.6 % (39.0-53.0) 23.8 % (39.0-53.0) Mean Corpuscular Volume 80 fL (79-100) 81 fL (79-100) Mean Corpuscular Hemoglobin 26 pg (25-35) 26 pg (25-35) Mean Corpuscular Hemoglobin Concent 32 g/dL (31-37) 32 g/dL (31-37) Red Cell Distribution Width 21.1 % (11.5-14.5) 21.1 % (11.5-14.5) Platelet Count 507 x10^3/uL (140-400) 443 x10^3/uL (140-400) Neutrophils (%) (Auto) 83 % (31-73) Lymphocytes (%) (Auto) 6 % (24-48) Monocytes (%) (Auto) 9 % (0-9) Eosinophils (%) (Auto) 1 % (0-3) Basophils (%) (Auto) 1 % (0-3) Neutrophils # (Auto) 14.8 x10^3/uL (1.8-7.7) Lymphocytes # (Auto) 1.1 x10^3/uL (1.0-4.8) Monocytes # (Auto) 1.7 x10^3/uL (0.0-1.1) Eosinophils # (Auto) 0.1 x10^3/uL (0.0-0.7) Basophils # (Auto) 0.2 x10^3/uL (0.0-0.2) Prothrombin Time 34.5 SEC (11.7-14.0) 43.2 SEC (11.7-14.0) Prothromb Time International Ratio 3.4 (0.8-1.1) 4.5 (0.8-1.1) Lactic Acid Level 2.4 mmol/L (0.4-2.0) Troponin I Quantitative 0.031 ng/mL (0.000-0.055) O2 Saturation 98 % (92-99) Arterial Blood pH 7.36 (7.35-7.45) Arterial Blood pCO2 at Patient Temp 18 mmHg (35-46) Arterial Blood pO2 at Patient Temp 126 mmHg (75-108) Arterial Blood HCO3 10 mmol/L (21-28) Arterial Blood Base Excess -14 mmol/L (-3-3) Oxyhemoglobin 96.8 % Methemoglobin 0.5 % (0.0-1.9) Carbon Monoxide, Quantitative 0.5 % (0.0-1.9) FiO2 36 Test 12/24/18 10:45 White Blood Count 16.6 x10^3/uL (4.0-11.0) Red Blood Count 2.79 x10^6/uL (4.30-5.70) Hemoglobin 7.2 g/dL (13.0-17.5) Hematocrit 22.8 % (39.0-53.0) Mean Corpuscular Volume 82 fL (79-100) Mean Corpuscular Hemoglobin 26 pg (25-35) Mean Corpuscular Hemoglobin Concent 31 g/dL (31-37) Red Cell Distribution Width 20.5 % (11.5-14.5) Platelet Count 470 x10^3/uL (140-400) Neutrophils (%) (Auto) 86 % (31-73) Lymphocytes (%) (Auto) 7 % (24-48) Monocytes (%) (Auto) 6 % (0-9) Eosinophils (%) (Auto) 0 % (0-3) Basophils (%) (Auto) 0 % (0-3) Neutrophils # (Auto) 14.3 x10^3/uL (1.8-7.7) Lymphocytes # (Auto) 1.2 x10^3/uL (1.0-4.8) Monocytes # (Auto) 1.1 x10^3/uL (0.0-1.1) Eosinophils # (Auto) 0.0 x10^3/uL (0.0-0.7) Basophils # (Auto) 0.1 x10^3/uL (0.0-0.2) Segmented Neutrophils % 86 % (35-66) Band Neutrophils % 3 % (0-9) Lymphocytes % 7 % (24-48) Monocytes % 4 % (0-10) Platelet Estimate Adequate (ADEQUATE) Anisocytosis Present Sodium Level 142 mmol/L (136-145) Potassium Level 5.0 mmol/L (3.5-5.1) Chloride Level 109 mmol/L (98-107) Carbon Dioxide Level 15 mmol/L (21-32) Anion Gap 18 (6-14) Blood Urea Nitrogen 55 mg/dL (8-26) Creatinine 1.7 mg/dL (0.7-1.3) Estimated GFR (Cockcroft-Gault) 41.8 BUN/Creatinine Ratio 32 (6-20) Glucose Level 237 mg/dL (70-99) Calcium Level 8.1 mg/dL (8.5-10.1) Magnesium Level 1.9 mg/dL (1.8-2.4) Total Bilirubin 0.4 mg/dL (0.2-1.0) Aspartate Amino Transf (AST/SGOT) 21 U/L (15-37) Alanine Aminotransferase (ALT/SGPT) 18 U/L (16-63) Alkaline Phosphatase 32 U/L (46-116) Ammonia 92 mcmol/L (11-34) Total Protein 4.6 g/dL (6.4-8.2) Albumin 2.3 g/dL (3.4-5.0) Albumin/Globulin Ratio 1.0 (1.0-1.7) Procalcitonin 0.64 ng/mL (0.00-0.10) Microbiology 12/20/18 Blood Culture - Preliminary, Resulted NO GROWTH AFTER 3 DAYS 12/20/18 Urine Culture - Final, Complete 12/20/18 Urine Culture Result 1 (AMARA) - Final, Complete Medications Current Medications Fentanyl Citrate (Fentanyl 2ml Vial) 50 mcg 1X ONCE IV Last administered on 12/10/18 20:03; Start 12/10/18 at 19:15; Stop 12/10/18 at 19:16; Status DC Iohexol (Omnipaque 300 Mg/ml) 75 ml 1X ONCE IV Last administered on 12/10/18at 19:43; Start 12/10/18 at 19:15; Stop 12/10/18 at 19:16; Status DC Sodium Chloride 1,000 ml @ 1,000 mls/hr 1X ONCE IV Last administered on 12/10/18at 19:45; Start 12/10/18 at 19:45; Stop 12/10/18 at 20:44; Status DC Morphine Sulfate (Morphine Sulfate) 2 mg PRN Q2HR PRN IV PAIN Last administered on 12/11/18 12:03; Start 12/10/18 at 20:15; Stop 12/11/18 at 20:14; Status DC Sodium Chloride 1,000 ml @ 100 mls/hr Q10H IV Last administered on 12/11/18at 08:10; Start 12/10/18 at 20:07; Stop 12/11/18 at 12:21; Status DC Diphtheria/ Tetanus/Acell Pertussis (Boostrix) 0.5 ml ONCE ONCE VAX IM Last administered on 12/10/18at 21:07; Start 12/10/18 at 20:15; Stop 12/10/18 at 20:16; Status DC Ondansetron HCl (Zofran) 4 mg PRN Q6HRS PRN IV NAUSEA/VOMITING 1ST CHOICE Last administered on 12/21/18 03:27; Start 12/11/18 at 05:30 Multivitamins (Thera M Plus) 1 tab DAILY PO Last administered on 12/12/18at 08:14; Start 12/11/18 at 09:00; Stop 12/13/18 at 11:25; Status DC Folic Acid (Folic Acid) 1 mg DAILY PO Last administered on 12/12/18 08:14; Start 12/11/18 at 09:00; Stop 12/13/18 at 11:25; Status DC Chlordiazepoxide (Librium) 50 mg PRN Q1HR PRN PO For CIWA 8-14 2ND CHOICE Last administered on 12/18/18 18:03; Start 12/11/18 at 05:30 Chlordiazepoxide (Librium) 100 mg PRN Q1HR PRN PO For CIWA 15+ 2ND CHOICE Last administered on 12/13/18 01:11; Start 12/11/18 at 05:30 Lorazepam (Ativan) 4 mg PRN Q1HR PRN PO For CIWA 8-14 Last administered on 12/13/18 02:48; Start 12/11/18 at 05:30 Lorazepam (Ativan) 8 mg PRN Q1HR PRN PO For CIWA 15 or greater; Start 12/11/18 at 05:30 Lorazepam (Ativan Inj) 2 mg PRN Q1HR PRN IV For CIWA 8-14 Last administered on 12/22/18 05:27; Start 12/11/18 at 05:30 Lorazepam (Ativan Inj) 4 mg PRN Q1HR PRN IV For CIWA 15 or greater Last administered on 12/24/18 02:18; Start 12/11/18 at 05:30 Haloperidol Lactate (Haldol Inj) 5 mg PRN Q4HRS PRN IVP Hallucinatns,Confusn,Delirium Last administered on 12/19/18 06:04; Start 12/11/18 at 05:30 Diphenhydramine HCl (Benadryl) 25 mg PRN Q15MIN PRN IVP EPS symptoms 2'Haldol admin Last administered on 12/18/18 03:44; Start 12/11/18 at 05:30 Clonidine HCl (Catapres) 0.1 mg PRN Q1HR PRN PO SBP > 180 or DBP > 100, MRX3; Start 12/11/18 at 05:30 Sodium Chloride 1,000 ml @ 60 mls/hr [id number] IV Last administered on 12/21/18 07:26; Start 12/11/18 at 13:00; Stop 12/22/18 at 14:53; Status DC Sodium Chloride 150 ml @ 50 mls/hr 1X ONCE IV Last administered on 12/11/18at 13:48; Start 12/11/18 at 13:00; Stop 12/11/18 at 15:59; Status DC Lisinopril (Prinivil) 20 mg DAILY PO Last administered on 12/19/18at 08:00; Start 12/11/18 at 14:00; Stop 12/21/18 at 15:19; Status DC Oxycodone/ Acetaminophen (Percocet 7.5/ 325) 1 tab PRN Q6HRS PRN PO MODERATE TO SEVERE PAIN Last administered on 12/19/18at 06:19; Start 12/11/18 at 13:30 Calcium Carbonate/ Glycine (Oscal) 500 mg TIDAFTMEAL PO Last administered on 12/19/18at 17:22; Start 12/12/18 at 13:00 Ziprasidone (Geodon Im) 20 mg 1X ONCE IM ; Start 12/13/18 at 05:00; Stop 12/13/18 at 18:51; Status DC Lorazepam 100 mg/ Sodium Chloride 100 ml @ 2 mls/hr CONT PRN IV SEDATION Last administered on 12/13/18at 19:56; Start 12/13/18 at 07:00; Stop 12/18/18 at 16:33; Status DC Olanzapine (ZyPREXA IM) 10 mg PRN Q8HRS PRN IM AGITATION Last administered on 12/19/18at 00:05; Start 12/13/18 at 08:30 Olanzapine (ZyPREXA IM) 10 mg STK-MED ONCE IM ; Start 12/13/18 at 08:37; Stop 12/13/18 at 08:38; Status DC Fentanyl Citrate (Fentanyl 2ml Vial) 75 mcg 1X ONCE IV ; Start 12/13/18 at 09:45; Stop 12/13/18 at 19:20; Status DC Fentanyl Citrate (Fentanyl 2ml Vial) 100 mcg STK-MED ONCE .ROUTE ; Start 12/13/18 at 09:47; Stop 12/13/18 at 09:48; Status DC Fentanyl Citrate (Fentanyl 2ml Vial) 75 mcg PRN Q30MIN PRN IV PAIN Last administered on 12/22/18at 01:39; Start 12/13/18 at 10:00 Multivitamins 10 ml/Thiamine HCl 100 mg/Folic Acid 1 mg/Sodium Chloride 1,011.2 ml @ 100 mls/ hr DAILY IV Last administered on 12/18/18at 08:55; Start 12/14/18 at 12:00; Stop 12/18/18 at 19:07; Status DC Enoxaparin Sodium (Lovenox 80mg Syringe) 80 mg Q12HR SQ Last administered on 12/21/18at 07:50; Start 12/13/18 at 14:30; Stop 12/21/18 at 12:56; Status DC Warfarin Sodium (Coumadin Per Pharmacy) 1 each PRN DAILY PRN MC SEE COMMENTS Last administered on 12/24/18at 11:27; Start 12/13/18 at 14:15 Warfarin Sodium (Coumadin) 7.5 mg 1X WARF ONCE PO ; Start 12/13/18 at 16:00; Stop 12/13/18 at 16:01; Status DC Nicotine (Nicoderm Cq 21mg) 1 patch DAILY TD Last administered on 12/23/18at 08:34; Start 12/14/18 at 09:00 Dexmedetomidine HCl 400 mcg/ Sodium Chloride 100 ml @ 0 mls/hr CONT PRN IV PER PROTOCOL Last administered on 12/18/18at 00:12; Start 12/14/18 at 01:45; Stop 12/18/18 at 16:33; Status DC Sodium Chloride 500 ml @ 500 mls/hr 1X PRN PRN IV SEE COMMENTS; Start 12/14/18 at 01:45; Stop 12/20/18 at 11:56; Status DC Atropine Sulfate (ATROPINE 0.5mg SYRINGE) 0.5 mg PRN Q5MIN PRN IV SEE COMMENTS; Start 12/14/18 at 01:45; Stop 12/20/18 at 11:55; Status DC Nicotine (Nicoderm Cq 21mg) 1 patch STK-MED ONCE TD ; Start 12/14/18 at 01:57; Stop 12/14/18 at 01:57; Status DC Lorazepam (Ativan) 1 mg BID PO Last administered on 12/19/18at 08:00; Start 12/14/18 at 09:00 Warfarin Sodium (Coumadin) 5 mg DAILY16 PO ; Start 12/14/18 at 16:00; Stop 12/14/18 at 09:21; Status DC Warfarin Sodium (Coumadin) 7.5 mg 1X WARF ONCE PO ; Start 12/14/18 at 16:00; Stop 12/14/18 at 16:01; Status DC Enalaprilat (Vasotec Inj) 1.25 mg Q8HRS IVP Last administered on 12/23/18at 22:16; Start 12/14/18 at 15:00 Nicardipine HCl 50 mg/Sodium Chloride 250 ml @ 25 mls/hr CONT PRN IV SEE I/O RECORD Last administered on 12/16/18at 09:58; Start 12/14/18 at 17:45; Stop 12/18/18 at 16:33; Status DC Nicardipine HCl 50 mg/Sodium Chloride 250 ml @ 25 mls/hr CONT PRN IV SEE I/O RECORD; Start 12/14/18 at 18:00; Status UNV Warfarin Sodium (Coumadin) 7.5 mg 1X WARF ONCE PO ; Start 12/15/18 at 16:00; Stop 12/15/18 at 16:01; Status DC Warfarin Sodium (Coumadin - No Dose Today) 1 each 1X WARF ONCE MC ; Start 12/16/18 at 16:00; Stop 12/16/18 at 16:01; Status DC Warfarin Sodium (Coumadin) 7.5 mg 1X WARF ONCE PO Last administered on 12/18/18at 08:54; Start 12/17/18 at 16:00; Stop 12/17/18 at 16:01; Status DC Ceftriaxone Sodium (Rocephin) 1 gm Q24H IVP Last administered on 12/20/18at 12:08; Start 12/18/18 at 12:30; Stop 12/20/18 at 15:14; Status DC Metoprolol Tartrate (Lopressor) 25 mg BID PO Last administered on 12/19/18at 08:01; Start 12/18/18 at 12:30 Acetaminophen/ Codeine Phosphate (Tylenol #3) 1 tab PRN Q6HRS PRN PO PAIN MILD TO MOD; Start 12/18/18 at 12:00; Stop 12/18/18 at 12:55; Status DC Lactobacillus Rhamnosus (Culturelle) 1 cap BID PO Last administered on 12/19/18at 08:00; Start 12/18/18 at 21:00; Stop 12/24/18 at 11:17; Status DC Acetaminophen (Tylenol) 650 mg PRN Q6HRS PRN PO FEVER Last administered on 12/19/18 17:23; Start 12/18/18 at 13:00 Warfarin Sodium (Coumadin) 7.5 mg 1X WARF ONCE PO Last administered on 12/18/18at 18:03; Start 12/18/18 at 16:00; Stop 12/18/18 at 16:11; Status DC Albuterol/ Ipratropium (Duoneb) 3 ml 1X ONCE NEB Last administered on 12/19/18at 07:15; Start 12/19/18 at 07:15; Stop 12/19/18 at 07:16; Status DC Ziprasidone (Geodon Im) 10 mg 1X ONCE IM Last administered on 12/19/18 07:42; Start 12/19/18 at 07:15; Stop 12/19/18 at 07:16; Status DC Warfarin Sodium (Coumadin) 7.5 mg 1X WARF ONCE PO Last administered on 12/19/18 17:23; Start 12/19/18 at 16:00; Stop 12/19/18 at 16:01; Status DC Potassium Chloride (Klor-Con) 40 meq 1X ONCE PO Last administered on 12/19/18at 16:12; Start 12/19/18 at 14:00; Stop 12/19/18 at 14:01; Status DC Potassium Chloride (Klor-Con) 20 meq DAILYWBKFT PO ; Start 12/20/18 at 08:00 Doxycycline Hyclate (Vibra-Tab) 100 mg BID PO Last administered on 12/19/18at 17:22; Start 12/19/18 at 17:30; Stop 12/19/18 at 17:57; Status DC Doxycycline Hyclate 100 mg/ Dextrose 100 ml @ 50 mls/hr Q12HR IV Last administered on 12/23/18at 22:17; Start 12/19/18 at 21:00; Stop 12/24/18 at 10:15; Status DC Metoprolol Tartrate (Lopressor Vial) 5 mg PRN Q6HRS PRN IVP HYPERTENSION Last administered on 12/24/18at 07:22; Start 12/19/18 at 18:00 Scopolamine (Transderm-Scop) 1 patch Q3DAYS TD Last administered on 12/23/18at 08:33; Start 12/20/18 at 09:00 Potassium Chloride/Water 100 ml @ 100 mls/hr Q1H IV Last administered on 12/20/18at 10:36; Start 12/20/18 at 06:00; Stop 12/20/18 at 09:59; Status DC Potassium Chloride (Klor-Con) 40 meq 1X ONCE PO ; Start 12/20/18 at 08:00; Stop 12/20/18 at 08:01; Status DC Acetaminophen (Tylenol Supp) 650 mg PRN Q6HRS PRN PA MILD PAIN / TEMP Last administered on 12/20/18at 14:59; Start 12/20/18 at 07:15 Warfarin Sodium (Coumadin) 7.5 mg 1X WARF ONCE PO ; Start 12/20/18 at 16:00; Stop 12/20/18 at 16:01; Status DC Hydralazine HCl (Apresoline Inj) 10 mg PRN Q4HRS PRN IVP ELEVATED BP, SEE COMMENTS Last administered on 12/22/18at 11:07; Start 12/20/18 at 14:30 Potassium Chloride (Klor-Con) 40 meq 1X ONCE PO ; Start 12/20/18 at 14:30; Stop 12/20/18 at 14:41; Status DC Potassium Chloride (Klor-Con) 20 meq DAILYWBKFT PO ; Start 12/21/18 at 08:00 Albuterol/ Ipratropium (Duoneb) 3 ml RTQID NEB Last administered on 12/24/18at 1 2:03; Start 12/20/18 at 16:00 Piperacillin Sod/ Tazobactam Sod 3.375 gm/Sodium Chloride 50 ml @ 100 mls/hr Q6HRS IV Last administered on 12/24/18at 05:09; Start 12/20/18 at 16:00; Stop 12/24/18 at 10:15; Status DC Amino Acids/ Glycerin/ Electrolytes 1,000 ml @ 75 mls/hr [id number] IV Last administered on 12/23/18at 22:17; Start 12/21/18 at 13:00 Warfarin Sodium (Coumadin) 1 mg 1X WARF ONCE PO ; Start 12/21/18 at 16:00; Stop 12/21/18 at 16:01; Status DC Sodium Chloride 1,000 ml @ 75 mls/hr 1X ONCE IV Last administered on 12/21/18at 13:49; Start 12/21/18 at 13:15; Stop 12/22/18 at 02:34; Status DC Potassium Chloride/Water 100 ml @ 100 mls/hr Q1H IV Last administered on 12/22/18at 11:03; Start 12/22/18 at 06:00; Stop 12/22/18 at 09:59; Status DC Sodium Chloride 1,000 ml @ 75 mls/hr 1X ONCE IV Last administered on 12/22/18at 14:49; Start 12/22/18 at 14:30; Stop 12/23/18 at 03:49; Status DC Potassium Chloride 20 meq/ Sodium Chloride 1,010 ml @ 75 mls/hr 1X ONCE IV Last administered on 12/22/18at 17:51; Start 12/22/18 at 16:00; Stop 12/23/18 at 05:27; Status DC Hydralazine HCl (Apresoline Inj) 10 mg Q6HRS IVP Last administered on 12/24/18at 01:12; Start 12/22/18 at 18:00 Potassium Chloride/Water 100 ml @ 100 mls/hr Q1H IV Last administered on 12/23/18at 14:01; Start 12/23/18 at 06:00; Stop 12/23/18 at 09:59; Status DC Potassium Chloride/Water 50 ml @ 50 mls/hr Q1H IV ; Start 12/23/18 at 11:15; Stop 12/23/18 at 13:14; Status UNV Potassium Chloride/Water 100 ml @ 100 mls/hr Q1H IV ; Start 12/23/18 at 11:30; Stop 12/23/18 at 13:04; Status DC Warfarin Sodium (Coumadin - No Dose Today) 1 each 1X WARF ONCE MC Last administered on 12/23/18at 16:00; Start 12/23/18 at 16:00; Stop 12/23/18 at 16:01; Status DC Pantoprazole Sodium (PROTONIX VIAL for IV PUSH) 40 mg DAILYAC IVP Last administered on 12/23/18at 15:21; Start 12/23/18 at 15:00; Stop 12/24/18 at 10:43; Status DC Cefepime HCl (Maxipime) 2 gm Q8HRS IVP ; Start 12/24/18 at 10:00 Metronidazole 100 ml @ 100 mls/hr Q8HRS IV ; Start 12/24/18 at 10:00 Daptomycin 460 mg/ Sodium Chloride 50 ml @ 100 mls/hr Q24H IV Last administered on 12/24/18at 12:07; Start 12/24/18 at 11:00 Micafungin Sodium 100 mg/Dextrose 100 ml @ 100 mls/hr Q24H IV ; Start 12/24/18 at 12:00 Pantoprazole Sodium 80 mg/ Sodium Chloride 100 ml @ 10 mls/hr Q10H IV Last administered on 12/24/18at 12:08; Start 12/24/18 at 11:00 Lorazepam (Ativan) 1 mg PRN Q6HRS PRN PO ANXIETY / AGITATION 1ST CHOICE; Start 12/24/18 at 10:45 Ondansetron HCl (Zofran) 4 mg PRN Q6HRS PRN IV NAUSEA/VOMITING; Start 12/24/18 at 10:45; Stop 12/24/18 at 10:52; Status DC Info (Icu Electrolyte Protocol) 1 ea DAILY MC ; Start 12/25/18 at 09:00 Sodium Chloride (Normal Saline Flush) 3 ml QSHIFT PRN IV AFTER MEDS AND BLOOD DRAWS; Start 12/24/18 at 10:45 Sodium Chloride 1,000 ml @ 2,130 mls/hr Q29M IV Last administered on 12/24/18at 12:13; Start 12/24/18 at 10:50; Stop 12/24/18 at 11:50; Status DC Sodium Chloride 500 ml @ 1,000 mls/hr PRN Q30MIN PRN IV SEE COMMENTS; Start 12/24/18 at 11:00 Norepinephrine Bitartrate 250 ml @ 0 mls/hr CONT PRN IV SEE COMMENTS Last administered on 12/24/18at 12:03; Start 12/24/18 at 11:00 Dobutamine HCl/ Dextrose 250 ml @ 0 mls/hr CONT PRN IV SEE COMMENTS; Start 12/24/18 at 11:00 Sodium Bicarbonate (Sodium Bicarb Adult 8.4% Syr) 100 meq 1X ONCE IV Last administered on 12/24/18at 11:16; Start 12/24/18 at 11:15; Stop 12/24/18 at 11:16; Status DC Phytonadione (Vitamin K Ampule) 5 mg 1X ONCE SQ Last administered on 12/24/18at 12:24; Start 12/24/18 at 11:15; Stop 12/24/18 at 11:22; Status DC Succinylcholine Chloride (Anectine) 200 mg STK-MED ONCE .ROUTE ; Start 12/24/18 at 11:20; Stop 12/24/18 at 11:21; Status DC Midazolam HCl (Versed) 5 mg STK-MED ONCE .ROUTE ; Start 12/24/18 at 11:21; Stop 12/24/18 at 11:21; Status DC Warfarin Sodium (Coumadin - No Dose Today) 1 each 1X WARF ONCE MC ; Start 12/24/18 at 16:00; Stop 12/24/18 at 16:01 Atropine Sulfate (ATROPINE 1mg SYRINGE) 1 mg STK-MED ONCE .ROUTE ; Start 12/24/18 at 11:30; Stop 12/24/18 at 11:30; Status DC Epinephrine HCl (Adrenalin) 1 mg STK-MED ONCE .ROUTE ; Start 12/24/18 at 11:30; Stop 12/24/18 at 11:30; Status DC Succinylcholine Chloride (Anectine) 60 mg 1X ONCE IV Last administered on 12/24/18at 12:04; Start 12/24/18 at 11:45; Stop 12/24/18 at 11:46; Status DC Midazolam HCl (Versed) 2 mg 1X ONCE IV ; Start 12/24/18 at 11:45; Stop 12/24/18 at 11:46; Status DC Epinephrine HCl (EPINEPHrine SYRINGE) 1 mg 1X ONCE IV ; Start 12/24/18 at 11:45; Stop 12/24/18 at 11:46; Status DC Sodium Chloride 1,000 ml @ 1,000 mls/hr 1X ONCE IV ; Start 12/24/18 at 11:45; Stop 12/24/18 at 12:44; Status DC Midazolam HCl 100 ml @ 5 mls/hr CONT PRN IV SEE I/O RECORD Last administered on 12/24/18at 12:27; Start 12/24/18 at 12:00 Fentanyl Citrate 30 ml @ 0 mls/hr CONT PRN IV SEE PROTOCOL Last administered on 12/24/18at 12:36; Start 12/24/18 at 12:00 Midazolam HCl (Versed) 2 mg 1X ONCE IV ; Start 12/24/18 at 12:15; Stop 12/24/18 at 12:16; Status DC Metoclopramide HCl (Reglan Vial) 10 mg 1X ONCE IVP ; Start 12/24/18 at 12:45; Stop 12/24/18 at 12:46; Status DC Vasopressin 40 unit/Dextrose 102 ml @ 6 mls/hr CONT PRN IV SEE I/O RECORD Last administered on 12/24/18at 13:17; Start 12/24/18 at 13:00 Active Scripts Active Reported Lorazepam 1 Mg Tablet 1 Tab PO BID Percocet 7.5-325 Mg Tablet (Oxycodone/Acetaminophen) 1 Each Tablet 1 Tab PO PRN Q6HRS PRN Coumadin (Warfarin Sodium) 5 Mg Tablet 1 Tab PO DAILY Lisinopril 20 Mg Tablet 1 Tab PO DAILY Vitals/I & O Vital Sign - Last 24 Hours 12/23/18 12/23/18 12/23/18 12/23/18 14:25 15:19 15:51 17:54 Temp 98.6 98.6 Pulse 108 108 108 Resp 20 B/P (MAP) 169/90 (116) 169/90 169/90 Pulse Ox 96 O2 Delivery Nasal Cannula O2 Flow Rate 2.0 2.0 12/23/18 12/23/18 12/23/18 12/23/18 19:11 20:18 20:42 21:00 Temp 98.4 98.4 Pulse 117 117 Resp 20 B/P (MAP) 154/91 (112) 154/91 Pulse Ox 96 96 O2 Delivery Room Air Nasal Cannula Nasal Cannula O2 Flow Rate 2.0 2.0 12/23/18 12/23/18 12/24/18 12/24/18 22:16 23:53 01:12 05:26 Temp 98.3 98.1 98.3 98.1 Pulse 117 121 121 163 Resp 20 37 B/P (MAP) 154/91 150/90 (110) 150/90 102/66 (78) Pulse Ox 97 98 O2 Delivery Nasal Cannula Nasal Cannula O2 Flow Rate 2.0 2.0 12/24/18 12/24/18 12/24/18 12/24/18 06:25 07:00 07:22 08:15 Temp 98.7 98.7 Pulse 146 122 150 Resp 36 38 B/P (MAP) 95/59 (71) 100/54 (69) 104/67 Pulse Ox 98 O2 Delivery Nasal Cannula Nasal Cannula Nasal Cannula O2 Flow Rate 2.0 2.0 2.0 12/24/18 12/24/18 12/24/18 12/24/18 08:20 11:00 11:30 11:45 Temp 99.0 99.4 99.0 99.4 Pulse 144 134 130 Resp 42 60 35 B/P (MAP) 104/53 (70) 70/48 (55) 66/38 (47) Pulse Ox 100 96 86 100 O2 Delivery Nasal Cannula Nasal Cannula Nasal Cannula Nasal Cannula O2 Flow Rate 2.0 2.0 2.0 2.0 12/24/18 12/24/18 12/24/18 12/24/18 11:47 12:00 12:15 12:25 Pulse 124 126 126 B/P (MAP) 102/45 (64) Pulse Ox 100 100 100 100 O2 Delivery Ventilator Ventilator Ventilator Ventilator 12/24/18 12/24/18 12:38 12:51 Temp 99.5 99.5 Pulse 135 144 Resp 31 B/P (MAP) 85/51 85/51 (62) Pulse Ox 100 O2 Delivery Ventilator Intake and Output 12/23/18 12/23/18 12/24/18 15:00 23:00 07:00 Output Total 200 ml Balance -200 ml MER DAVIES MD Dec 24, 2018 13:21
[2018-12-24 13:36] LABS: BASE EXCESS ABG -12 mmol/L (-3-3); HCO3 ABG 12 mmol/L (21-28); PCO2 ABG 21 mmHg (35-46); PO2 ABG 120 mmHg (75-108); SAT O2 ABG 98 % (92-99)
[2018-12-24 13:40] LABS: FIO2 ABG 40
[2018-12-24] MEDS ORDERED: ALBUMIN HUMAN 5% 500 ML IV ONE ×2 (14:37→14:45)
[2018-12-24] MEDS ORDERED: DIGOXIN IV 500 MCG/2 ML AMPUL. ONE (15:07)
[2018-12-24] MEDS ORDERED: DIGOXIN IV 500 MCG/2 ML AMPUL. IV ONE (15:30)
[2018-12-24 15:33] LABS: PROTHROMBIN TIME PATIENT 34.1 SEC (11.7-14.0)
--- NOTE | 2018-12-24 15:42 | PDOC4 ---
PROCEDURE Procedure EGD/clipping Indication: UGI bleeding/acute anemia Meds: per ventilator control; no additional Findings: E--NO varices. Large clot/some fresh blood at GE junction. G--Mild amount of old blood, obscuring posterior upper body. Some hematin throughout. No ulcer, mass seen. On retroflex, clot/some fresh blood at cardia. D--Normal to second portion. --returned to esophagus; clot was dislodged. Under, oozing of fresh blood from right anterior aspect of GEJ. No appreciable depth to injury (suspect inflammatory/reflux, not Shawna-Garrett. Perhaps Dieulafoy's). Two clips placed with essential cessation of bleeding. Rodo. well. IMP: Non-variceal bleeding, distal esophagus. Inflammatory/Dieulafoy possible, aggravated by coagulopathy. REC: Continue PPI drip Correct coags. Transfuse prn. Watch INR, platelet counts. Observe for signs of ongoing bleeding. Small OG OK gently if needed. SHAW BRIONES MD Dec 24, 2018 15:42
[2018-12-24] MEDS ORDERED: AMIODARONE 900 MG in IV DEXTROSE 5% 500 ML IV PRN (16:00)
[2018-12-24] MEDS: CEFEPIME HCL IV Push 2 GM VIAL. IVP SCH ×3 (16:00→21:56)
[2018-12-24] MEDS ORDERED: AMIODARONE 150 MG in IV DEXTROSE 5% 100ML 100 ML IV ONE (16:00)
--- NOTE | 2018-12-24 17:00 | NUR ---
16:42 approximately 1000 cc black liquid stool in bed. Dr. Vides here at 1700 Rectal tube inserted with 10 ml fluid; immediately had black liquid stool.
--- NOTE | 2018-12-24 17:05 | PDOC2 ---
CONSULT Date of Consult Date of Consult DATE: 12/24/18 TIME: 16:51 Reason for consultation: Coagulopathy Consult: Hematology oncology, Dr. Benny Vides History of present illness: He is a 58-year-old male with a history of alcoholism who was admitted after a fall down the stairs sustaining a scalp laceration with a sodium of 119 on 10 December and was admitted and has unfortunately sustained GI bleed and was transferred acutely to the ICU today. He has a coagulopathy, INR was 4.5 this morning, and has received 5 mg of vitamin K as well as 2 units of rbcs and 2 units of FFP's pending. Unfortunately he still is having active GI bleeding, he did have an EGD just very recently that showed a possible dieulafoy's versus other with some bleeding that was clipped, no varices, and is on it protonix drip as well as pressors and fentanyl with tachycardia currently in the 160s. GI bleed is acute, severe, worsened due to gastric bleeding, better after clipping and with blood transfusion though again still dark red blood is coming from his anus acutely. Past medical history: Peripheral neuropathy TIA Alcohol w/drawal Toxic encephalopathy Mental status changes COPD Alcohol abuse Possible seizure Dysphagia Aspiration Anxiety and depression Chronic pain Ascending aorta aneurysm A. fib Hypertension Hyperlipidemia Mitral insufficiency Bioprosthetic aortic valve replacement with mechanical aortic valve 2011 GERD BPH Humerus and vertebral fractures Past surgical history: Aortic valve bioprosthetic followed by mechanical Allergies: no known drug allergies Medications: See attached list Social history: Up to 25 beers a day, one pack per day, positive marijuana Family history: HTN Review of systems: GI bleeding, rest of review of systems not obtainable as he is intubated and sedated Physical exam: Vitals reviewed, tachy, Tm 99.5 Gen.: Elderly man intubated and sedate resting in bed HEENT: Intubated, head normocephalic Neck: Supple, no lymphadenopathy appreciated Lymph nodes: No palpable lymphadenopathy neck or axilla appreciated Lungs: Breathing via ETT Heart: Regular rate, tachy Abdomen: Soft, not obviously tender Extremities: No cyanosis or edema, but he does have dark blood running down his legs from a recent bowel movement Skin: No obvious rashes, bruising on UE Neuro: sedate, not responding to verbal stimuli Lab reviewed: White count 16.6, hemoglobin 7.2 down from 11.6, platelets 470, MCV of 82 INR 4.5 this morning down to 3.4 at 1500 B12 1475 C. difficile negative Creatinine 1.7 Lactate 2.4 TSH 1.5 Procalc 0.64 Normal AST and ALT and bili and alkaline phosphatase Potassium 2.8 Blood cultures and urine cultures negative Rads reviewed: CTs and x-rays have been done without concern for hemorrhage or cancer Case discussed with: Nursing staff, records reviewed in [facility], including labs and radiology, please see note for summary details. Assessment and Plan: He is a 58-year-old alcoholic with admission for inebriation with fall and scalp laceration and hyponatremia who unfortunately has developed a GI bleed on warfarin for history of mechanical heart valve and is currently intubated and sedate on pressors in the ICU. GI bleed: Clipping done at EGD today, still having some blood coming from bowels, would transfuse for hemoglobin less than 7 and keep a close eye on CBCs, GI is involved Coagulopathy: Due to Coumadin, received 5 mg of vitamin K, will order 10 more milligrams, as well recommend checking PTT, FFP can be given to correct PTT as needed, vitamin K can be given to correct INR as needed, cryoprecipitate can be given if fibrinogen less than 100, will check fibrinogen, iron can be given if iron deficient, will check iron panel, if having life-threatening bleeding that cannot be managed with above could give NovoSeven however would with hold at this point in time with mechanical heart valve and very high risk of thrombosis if given Fever and elevated pro-calcitonin, ID is involved and he is on multiple antimicrobials Respiratory distress: He is intubated and pulmonary is following Mechanical heart valve: Coumadin on hold with GI bleed, cardiology is involved hypoK: Defer to primary Prognosis: Poor I will return on Saturday morning but Dr. Guardado or me via phone, (I am adult basic education instructor tonight) are available in the interim, please do not hesitate to call with any further questions and thank you kindly for this consult. Past Medical History Cardiovascular: AFIB, HTN, Hyperlipidemia, Valve insufficiency (mitral. s/p bioprosthetic aortic valve 2005 that developed stenosis. Reoperative mechanical aoritc valve replacement in 2011) Pulmonary: COPD CENTRAL NERVOUS SYSTEM: Periperal neuropathy, Seizure GI: GERD Psych: Anxiety, Depression Rheumatologic: Other Renal/: Benign prostatic enlarg. Past Surgical History Past Surgical History: No pertinent history Family History Family History: Diabetes Social History 1 pack per day ALCOHOL: heavy (up to 25 beers per day) Drugs: Marijuana Lives: Alone (son often stays the night ) Current Problem List Problem List Problems Medical Problems: (1) Alcohol abuse Status: Acute (2) Closed head injury Status: Acute Current Medications Current Medications Current Medications Fentanyl Citrate (Fentanyl 2ml Vial) 50 mcg 1X ONCE IV Last administered on 12/10/18at 20:03; Start 12/10/18 at 19:15; Stop 12/10/18 at 19:16; Status DC Iohexol (Omnipaque 300 Mg/ml) 75 ml 1X ONCE IV Last administered on 12/10/18at 19:43; Start 12/10/18 at 19:15; Stop 12/10/18 at 19:16; Status DC Sodium Chloride 1,000 ml @ 1,000 mls/hr 1X ONCE IV Last administered on 12/10/18at 19:45; Start 12/10/18 at 19:45; Stop 12/10/18 at 20:44; Status DC Morphine Sulfate (Morphine Sulfate) 2 mg PRN Q2HR PRN IV PAIN Last administered on 12/11/18at 12:03; Start 12/10/18 at 20:15; Stop 12/11/18 at 20:14; Status DC Sodium Chloride 1,000 ml @ 100 mls/hr Q10H IV Last administered on 12/11/18at 08:10; Start 12/10/18 at 20:07; Stop 12/11/18 at 12:21; Status DC Diphtheria/ Tetanus/Acell Pertussis (Boostrix) 0.5 ml ONCE ONCE VAX IM Last administered on 12/10/18at 21:07; Start 12/10/18 at 20:15; Stop 12/10/18 at 20:16; Status DC Ondansetron HCl (Zofran) 4 mg PRN Q6HRS PRN IV NAUSEA/VOMITING 1ST CHOICE Last administered on 12/21/18at 03:27; Start 12/11/18 at 05:30 Multivitamins (Thera M Plus) 1 tab DAILY PO Last administered on 12/12/18at 08:14; Start 12/11/18 at 09:00; Stop 12/13/18 at 11:25; Status DC Folic Acid (Folic Acid) 1 mg DAILY PO Last administered on 12/12/18 08:14; Start 12/11/18 at 09:00; Stop 12/13/18 at 11:25; Status DC Chlordiazepoxide (Librium) 50 mg PRN Q1HR PRN PO For CIWA 8-14 2ND CHOICE Last administered on 12/18/18 18:03; Start 12/11/18 at 05:30 Chlordiazepoxide (Librium) 100 mg PRN Q1HR PRN PO For CIWA 15+ 2ND CHOICE Last administered on 12/13/18 01:11; Start 12/11/18 at 05:30 Lorazepam (Ativan) 4 mg PRN Q1HR PRN PO For CIWA 8-14 Last administered on 12/13/18 02:48; Start 12/11/18 at 05:30 Lorazepam (Ativan) 8 mg PRN Q1HR PRN PO For CIWA 15 or greater; Start 12/11/18 at 05:30 Lorazepam (Ativan Inj) 2 mg PRN Q1HR PRN IV For CIWA 8-14 Last administered on 12/22/18 05:27; Start 12/11/18 at 05:30 Lorazepam (Ativan Inj) 4 mg PRN Q1HR PRN IV For CIWA 15 or greater Last administered on 12/24/18 02:18; Start 12/11/18 at 05:30 Haloperidol Lactate (Haldol Inj) 5 mg PRN Q4HRS PRN IVP Hallucinatns,Confusn,Delirium Last administered on 12/19/18 06:04; Start 12/11/18 at 05:30 Diphenhydramine HCl (Benadryl) 25 mg PRN Q15MIN PRN IVP EPS symptoms 2'Haldol admin Last administered on 12/18/18 03:44; Start 12/11/18 at 05:30 Clonidine HCl (Catapres) 0.1 mg PRN Q1HR PRN PO SBP > 180 or DBP > 100, MRX3; Start 12/11/18 at 05:30 Sodium Chloride 1,000 ml @ 60 mls/hr [id number] IV Last administered on 12/21/18 07:26; Start 12/11/18 at 13:00; Stop 12/22/18 at 14:53; Status DC Sodium Chloride 150 ml @ 50 mls/hr 1X ONCE IV Last administered on 12/11/18at 13:48; Start 12/11/18 at 13:00; Stop 12/11/18 at 15:59; Status DC Lisinopril (Prinivil) 20 mg DAILY PO Last administered on 12/19/18at 08:00; Start 12/11/18 at 14:00; Stop 12/21/18 at 15:19; Status DC Oxycodone/ Acetaminophen (Percocet 7.5/ 325) 1 tab PRN Q6HRS PRN PO MODERATE TO SEVERE PAIN Last administered on 12/19/18at 06:19; Start 12/11/18 at 13:30 Calcium Carbonate/ Glycine (Oscal) 500 mg TIDAFTMEAL PO Last administered on 12/19/18at 17:22; Start 12/12/18 at 13:00 Ziprasidone (Geodon Im) 20 mg 1X ONCE IM ; Start 12/13/18 at 05:00; Stop 12/13/18 at 18:51; Status DC Lorazepam 100 mg/ Sodium Chloride 100 ml @ 2 mls/hr CONT PRN IV SEDATION Last administered on 12/13/18at 19:56; Start 12/13/18 at 07:00; Stop 12/18/18 at 16:33; Status DC Olanzapine (ZyPREXA IM) 10 mg PRN Q8HRS PRN IM AGITATION Last administered on 12/19/18at 00:05; Start 12/13/18 at 08:30 Olanzapine (ZyPREXA IM) 10 mg STK-MED ONCE IM ; Start 12/13/18 at 08:37; Stop 12/13/18 at 08:38; Status DC Fentanyl Citrate (Fentanyl 2ml Vial) 75 mcg 1X ONCE IV ; Start 12/13/18 at 09:45; Stop 12/13/18 at 19:20; Status DC Fentanyl Citrate (Fentanyl 2ml Vial) 100 mcg STK-MED ONCE .ROUTE ; Start 12/13/18 at 09:47; Stop 12/13/18 at 09:48; Status DC Fentanyl Citrate (Fentanyl 2ml Vial) 75 mcg PRN Q30MIN PRN IV PAIN Last administered on 12/22/18at 01:39; Start 12/13/18 at 10:00 Multivitamins 10 ml/Thiamine HCl 100 mg/Folic Acid 1 mg/Sodium Chloride 1,011.2 ml @ 100 mls/ hr DAILY IV Last administered on 12/18/18at 08:55; Start 12/14/18 at 12:00; Stop 12/18/18 at 19:07; Status DC Enoxaparin Sodium (Lovenox 80mg Syringe) 80 mg Q12HR SQ Last administered on 12/21/18at 07:50; Start 12/13/18 at 14:30; Stop 12/21/18 at 12:56; Status DC Warfarin Sodium (Coumadin Per Pharmacy) 1 each PRN DAILY PRN MC SEE COMMENTS Last administered on 12/24/18at 11:27; Start 12/13/18 at 14:15; Stop 12/24/18 at 16:10; Status DC Warfarin Sodium (Coumadin) 7.5 mg 1X WARF ONCE PO ; Start 12/13/18 at 16:00; Stop 12/13/18 at 16:01; Status DC Nicotine (Nicoderm Cq 21mg) 1 patch DAILY TD Last administered on 12/23/18at 08:34; Start 12/14/18 at 09:00 Dexmedetomidine HCl 400 mcg/ Sodium Chloride 100 ml @ 0 mls/hr CONT PRN IV PER PROTOCOL Last administered on 12/18/18at 00:12; Start 12/14/18 at 01:45; Stop 12/18/18 at 16:33; Status DC Sodium Chloride 500 ml @ 500 mls/hr 1X PRN PRN IV SEE COMMENTS; Start 12/14/18 at 01:45; Stop 12/20/18 at 11:56; Status DC Atropine Sulfate (ATROPINE 0.5mg SYRINGE) 0.5 mg PRN Q5MIN PRN IV SEE COMMENTS; Start 12/14/18 at 01:45; Stop 12/20/18 at 11:55; Status DC Nicotine (Nicoderm Cq 21mg) 1 patch STK-MED ONCE TD ; Start 12/14/18 at 01:57; Stop 12/14/18 at 01:57; Status DC Lorazepam (Ativan) 1 mg BID PO Last administered on 12/19/18at 08:00; Start 12/14/18 at 09:00 Warfarin Sodium (Coumadin) 5 mg DAILY16 PO ; Start 12/14/18 at 16:00; Stop 12/14/18 at 09:21; Status DC Warfarin Sodium (Coumadin) 7.5 mg 1X WARF ONCE PO ; Start 12/14/18 at 16:00; Stop 12/14/18 at 16:01; Status DC Enalaprilat (Vasotec Inj) 1.25 mg Q8HRS IVP Last administered on 12/23/18at 22:16; Start 12/14/18 at 15:00 Nicardipine HCl 50 mg/Sodium Chloride 250 ml @ 25 mls/hr CONT PRN IV SEE I/O RECORD Last administered on 12/16/18at 09:58; Start 12/14/18 at 17:45; Stop 12/18/18 at 16:33; Status DC Nicardipine HCl 50 mg/Sodium Chloride 250 ml @ 25 mls/hr CONT PRN IV SEE I/O RECORD; Start 12/14/18 at 18:00; Status UNV Warfarin Sodium (Coumadin) 7.5 mg 1X WARF ONCE PO ; Start 12/15/18 at 16:00; Stop 12/15/18 at 16:01; Status DC Warfarin Sodium (Coumadin - No Dose Today) 1 each 1X WARF ONCE MC ; Start 12/16/18 at 16:00; Stop 12/16/18 at 16:01; Status DC Warfarin Sodium (Coumadin) 7.5 mg 1X WARF ONCE PO Last administered on 12/18/18at 08:54; Start 12/17/18 at 16:00; Stop 12/17/18 at 16:01; Status DC Ceftriaxone Sodium (Rocephin) 1 gm Q24H IVP Last administered on 12/20/18at 12:08; Start 12/18/18 at 12:30; Stop 12/20/18 at 15:14; Status DC Metoprolol Tartrate (Lopressor) 25 mg BID PO Last administered on 12/19/18at 08:01; Start 12/18/18 at 12:30 Acetaminophen/ Codeine Phosphate (Tylenol #3) 1 tab PRN Q6HRS PRN PO PAIN MILD TO MOD; Start 12/18/18 at 12:00; Stop 12/18/18 at 12:55; Status DC Lactobacillus Rhamnosus (Culturelle) 1 cap BID PO Last administered on 12/19/18 08:00; Start 12/18/18 at 21:00; Stop 12/24/18 at 11:17; Status DC Acetaminophen (Tylenol) 650 mg PRN Q6HRS PRN PO FEVER Last administered on 12/19/18 17:23; Start 12/18/18 at 13:00 Warfarin Sodium (Coumadin) 7.5 mg 1X WARF ONCE PO Last administered on 12/18/18 18:03; Start 12/18/18 at 16:00; Stop 12/18/18 at 16:11; Status DC Albuterol/ Ipratropium (Duoneb) 3 ml 1X ONCE NEB Last administered on 12/19/18 07:15; Start 12/19/18 at 07:15; Stop 12/19/18 at 07:16; Status DC Ziprasidone (Geodon Im) 10 mg 1X ONCE IM Last administered on 12/19/18 07:42; Start 12/19/18 at 07:15; Stop 12/19/18 at 07:16; Status DC Warfarin Sodium (Coumadin) 7.5 mg 1X WARF ONCE PO Last administered on 12/19/18 17:23; Start 12/19/18 at 16:00; Stop 12/19/18 at 16:01; Status DC Potassium Chloride (Klor-Con) 40 meq 1X ONCE PO Last administered on 12/19/18at 16:12; Start 12/19/18 at 14:00; Stop 12/19/18 at 14:01; Status DC Potassium Chloride (Klor-Con) 20 meq DAILYWBKFT PO ; Start 12/20/18 at 08:00 Doxycycline Hyclate (Vibra-Tab) 100 mg BID PO Last administered on 12/19/18 17:22; Start 12/19/18 at 17:30; Stop 12/19/18 at 17:57; Status DC Doxycycline Hyclate 100 mg/ Dextrose 100 ml @ 50 mls/hr Q12HR IV Last administered on 12/23/18 22:17; Start 12/19/18 at 21:00; Stop 12/24/18 at 10:15; Status DC Metoprolol Tartrate (Lopressor Vial) 5 mg PRN Q6HRS PRN IVP HYPERTENSION Last administered on 10/9/19at 07:22; Start 12/19/18 at 18:00 Scopolamine (Transderm-Scop) 1 patch Q3DAYS TD Last administered on 12/23/18at 08:33; Start 12/20/18 at 09:00 Potassium Chloride/Water 100 ml @ 100 mls/hr Q1H IV Last administered on 12/20/18at 10:36; Start 12/20/18 at 06:00; Stop 12/20/18 at 09:59; Status DC Potassium Chloride (Klor-Con) 40 meq 1X ONCE PO ; Start 12/20/18 at 08:00; Stop 12/20/18 at 08:01; Status DC Acetaminophen (Tylenol Supp) 650 mg PRN Q6HRS PRN FL MILD PAIN / TEMP Last administered on 12/20/18at 14:59; Start 12/20/18 at 07:15 Warfarin Sodium (Coumadin) 7.5 mg 1X WARF ONCE PO ; Start 12/20/18 at 16:00; Stop 12/20/18 at 16:01; Status DC Hydralazine HCl (Apresoline Inj) 10 mg PRN Q4HRS PRN IVP ELEVATED BP, SEE COMMENTS Last administered on 12/22/18at 11:07; Start 12/20/18 at 14:30 Potassium Chloride (Klor-Con) 40 meq 1X ONCE PO ; Start 12/20/18 at 14:30; Stop 12/20/18 at 14:41; Status DC Potassium Chloride (Klor-Con) 20 meq DAILYWBKFT PO ; Start 12/21/18 at 08:00 Albuterol/ Ipratropium (Duoneb) 3 ml RTQID NEB Last administered on 12/24/18at 16:32; Start 12/20/18 at 16:00 Piperacillin Sod/ Tazobactam Sod 3.375 gm/Sodium Chloride 50 ml @ 100 mls/hr Q6HRS IV Last administered on 12/24/18at 05:09; Start 12/20/18 at 16:00; Stop 12/24/18 at 10:15; Status DC Amino Acids/ Glycerin/ Electrolytes 1,000 ml @ 75 mls/hr [id number] IV Last administered on 12/23/18at 22:17; Start 12/21/18 at 13:00 Warfarin Sodium (Coumadin) 1 mg 1X WARF ONCE PO ; Start 12/21/18 at 16:00; Stop 12/21/18 at 16:01; Status DC Sodium Chloride 1,000 ml @ 75 mls/hr 1X ONCE IV Last administered on 12/21/18at 13:49; Start 12/21/18 at 13:15; Stop 12/22/18 at 02:34; Status DC Potassium Chloride/Water 100 ml @ 100 mls/hr Q1H IV Last administered on 12/22/18at 11:03; Start 12/22/18 at 06:00; Stop 12/22/18 at 09:59; Status DC Sodium Chloride 1,000 ml @ 75 mls/hr 1X ONCE IV Last administered on 12/22/18at 14:49; Start 12/22/18 at 14:30; Stop 12/23/18 at 03:49; Status DC Potassium Chloride 20 meq/ Sodium Chloride 1,010 ml @ 75 mls/hr 1X ONCE IV Last administered on 12/22/18at 17:51; Start 12/22/18 at 16:00; Stop 12/23/18 at 05:27; Status DC Hydralazine HCl (Apresoline Inj) 10 mg Q6HRS IVP Last administered on 12/24/18at 01:12; Start 12/22/18 at 18:00 Potassium Chloride/Water 100 ml @ 100 mls/hr Q1H IV Last administered on at 14:01; Start 12/23/18 at 06:00; Stop 12/23/18 at 09:59; Status DC Potassium Chloride/Water 50 ml @ 50 mls/hr Q1H IV ; Start 12/23/18 at 11:15; Stop 12/23/18 at 13:14; Status UNV Potassium Chloride/Water 100 ml @ 100 mls/hr Q1H IV ; Start 12/23/18 at 11:30; Stop 12/23/18 at 13:04; Status DC Warfarin Sodium (Coumadin - No Dose Today) 1 each 1X WARF ONCE MC Last administered on 12/23/18at 16:00; Start 12/23/18 at 16:00; Stop 12/23/18 at 16:01; Status DC Pantoprazole Sodium (PROTONIX VIAL for IV PUSH) 40 mg DAILYAC IVP Last administered on 12/23/18at 15:21; Start 12/23/18 at 15:00; Stop 12/24/18 at 10:43; Status DC Cefepime HCl (Maxipime) 2 gm Q8HRS IVP ; Start 12/24/18 at 10:00 Metronidazole 100 ml @ 100 mls/hr Q8HRS IV ; Start 12/24/18 at 10:00 Daptomycin 460 mg/ Sodium Chloride 50 ml @ 100 mls/hr Q24H IV Last administered on 12/24/18at 12:07; Start 12/24/18 at 11:00 Micafungin Sodium 100 mg/Dextrose 100 ml @ 100 mls/hr Q24H IV ; Start 12/24/18 at 12:00 Pantoprazole Sodium 80 mg/ Sodium Chloride 100 ml @ 10 mls/hr Q10H IV Last administered on 12/24/18at 12:08; Start 12/24/18 at 11:00 Lorazepam (Ativan) 1 mg PRN Q6HRS PRN PO ANXIETY / AGITATION 1ST CHOICE; Start 12/24/18 at 10:45 Ondansetron HCl (Zofran) 4 mg PRN Q6HRS PRN IV NAUSEA/VOMITING; Start 12/24/18 at 10:45; Stop 12/24/18 at 10:52; Status DC Info (Icu Electrolyte Protocol) 1 ea DAILY MC ; Start 12/25/18 at 09:00 Sodium Chloride (Normal Saline Flush) 3 ml QSHIFT PRN IV AFTER MEDS AND BLOOD DRAWS; Start 12/24/18 at 10:45 Sodium Chloride 1,000 ml @ 2,130 mls/hr Q29M IV Last administered on 12/24/18at 12:13; Start 12/24/18 at 10:50; Stop 12/24/18 at 11:50; Status DC Sodium Chloride 500 ml @ 1,000 mls/hr PRN Q30MIN PRN IV SEE COMMENTS; Start 12/24/18 at 11:00 Norepinephrine Bitartrate 250 ml @ 0 mls/hr CONT PRN IV SEE COMMENTS Last administered on 12/24/18at 15:08; Start 12/24/18 at 11:00 Dobutamine HCl/ Dextrose 250 ml @ 0 mls/hr CONT PRN IV SEE COMMENTS; Start 12/24/18 at 11:00 Sodium Bicarbonate (Sodium Bicarb Adult 8.4% Syr) 100 meq 1X ONCE IV Last administered on 12/24/18at 11:16; Start 12/24/18 at 11:15; Stop 12/24/18 at 11:16; Status DC Phytonadione (Vitamin K Ampule) 5 mg 1X ONCE SQ Last administered on 12/24/18at 12:24; Start 12/24/18 at 11:15; Stop 12/24/18 at 11:22; Status DC Succinylcholine Chloride (Anectine) 200 mg STK-MED ONCE .ROUTE ; Start 12/24/18 at 11:20; Stop 12/24/18 at 11:21; Status DC Midazolam HCl (Versed) 5 mg STK-MED ONCE .ROUTE ; Start 12/24/18 at 11:21; Stop 12/24/18 at 11:21; Status DC Warfarin Sodium (Coumadin - No Dose Today) 1 each 1X WARF ONCE MC ; Start 12/24/18 at 16:00; Stop 12/24/18 at 16:01; Status DC Atropine Sulfate (ATROPINE 1mg SYRINGE) 1 mg STK-MED ONCE .ROUTE ; Start 12/24/18 at 11:30; Stop 12/24/18 at 11:30; Status DC Epinephrine HCl (Adrenalin) 1 mg STK-MED ONCE .ROUTE ; Start 12/24/18 at 11:30; Stop 12/24/18 at 11:30; Status DC Succinylcholine Chloride (Anectine) 60 mg 1X ONCE IV Last administered on 12/24/18at 12:04; Start 12/24/18 at 11:45; Stop 12/24/18 at 11:46; Status DC Midazolam HCl (Versed) 2 mg 1X ONCE IV Last administered on 12/24/18at 11:30; Start 12/24/18 at 11:45; Stop 12/24/18 at 11:46; Status DC Epinephrine HCl (EPINEPHrine SYRINGE) 1 mg 1X ONCE IV ; Start 12/24/18 at 11:45; Stop 12/24/18 at 11:46; Status DC Sodium Chloride 1,000 ml @ 1,000 mls/hr 1X ONCE IV ; Start 12/24/18 at 11:45; Stop 12/24/18 at 12:44; Status DC Midazolam HCl 100 ml @ 5 mls/hr CONT PRN IV SEE I/O RECORD Last administered on 12/24/18at 12:27; Start 12/24/18 at 12:00 Fentanyl Citrate 30 ml @ 0 mls/hr CONT PRN IV SEE PROTOCOL Last administered on 12/24/18at 12:36; Start 12/24/18 at 12:00 Midazolam HCl (Versed) 2 mg 1X ONCE IV ; Start 12/24/18 at 12:15; Stop 12/24/18 at 12:16; Status DC Metoclopramide HCl (Reglan Vial) 10 mg 1X ONCE IVP Last administered on 12/24/18at 15:00; Start 12/24/18 at 12:45; Stop 12/24/18 at 12:46; Status DC Vasopressin 40 unit/Dextrose 102 ml @ 6 mls/hr CONT PRN IV SEE I/O RECORD Last administered on 12/24/18at 13:17; Start 12/24/18 at 13:00 Albumin Human 500 ml @ As Directed STK-MED ONCE IV ; Start 12/24/18 at 14:37; Stop 12/24/18 at 14:37; Status DC Albumin Human 500 ml @ 125 mls/hr 1X ONCE IV Last administered on 12/24/18at 14:39; Start 12/24/18 at 14:45; Stop 12/24/18 at 18:44 Digoxin (Lanoxin) 500 mcg 1X ONCE IV ; Start 12/24/18 at 15:30; Stop 12/24/18 at 15:31; Status DC Digoxin (Lanoxin) 500 mcg STK-MED ONCE .ROUTE ; Start 12/24/18 at 15:07; Stop 12/24/18 at 15:08; Status DC Phytonadione (Vitamin K Ampule) 10 mg 1X ONCE SQ ; Start 12/24/18 at 15:45; St op 12/24/18 at 15:49; Status DC Amiodarone HCl 150 mg/Dextrose 103 ml @ 618 mls/hr 1X ONCE IV ; Start 12/24/18 at 16:00; Stop 12/24/18 at 16:09; Status DC Amiodarone HCl 900 mg/Dextrose 518 ml @ 0 mls/hr CONT PRN IV SEE I/O RECORD; Start 12/24/18 at 16:00 Active Scripts Active Reported Lorazepam 1 Mg Tablet 1 Tab PO BID Percocet 7.5-325 Mg Tablet (Oxycodone/Acetaminophen) 1 Each Tablet 1 Tab PO PRN Q6HRS PRN Coumadin (Warfarin Sodium) 5 Mg Tablet 1 Tab PO DAILY Lisinopril 20 Mg Tablet 1 Tab PO DAILY Allergies Allergies: Coded Allergies: No Known Drug Allergies (Unverified , 10/05/17) Vitals VITALS Vital Signs Date Time Temp Pulse Resp B/P (MAP) Pulse Ox O2 Delivery O2 Flow Rate FiO2 12/24/18 16:32 100 Ventilator 12/24/18 16:15 153 112/80 (91) 12/24/18 16:00 98.7 98.7 12/24/18 14:15 32 12/24/18 11:45 2.0 Labs Labs Laboratory Tests Test 12/23/18 03:05 12/23/18 23:00 12/24/18 02:05 12/24/18 09:20 White Blood Count 12.0 x10^3/uL (4.0-11.0) 17.8 x10^3/uL (4.0-11.0) 18.0 x10^3/uL (4.0-11.0) Red Blood Count 4.58 x10^6/uL (4.30-5.70) 3.97 x10^6/uL (4.30-5.70) 2.94 x10^6/uL (4.30-5.70) Hemoglobin 11.6 g/dL (13.0-17.5) 10.1 g/dL (13.0-17.5) 7.5 g/dL (13.0-17.5) Hematocrit 36.0 % (39.0-53.0) 31.6 % (39.0-53.0) 23.8 % (39.0-53.0) Mean Corpuscular Volume 79 fL (79-100) 80 fL (79-100) 81 fL (79-100) Mean Corpuscular Hemoglobin 26 pg (25-35) 26 pg (25-35) 26 pg (25-35) Mean Corpuscular Hemoglobin Concent 32 g/dL (31-37) 32 g/dL (31-37) 32 g/dL (31-37) Red Cell Distribution Width 21.1 % (11.5-14.5) 21.1 % (11.5-14.5) 21.1 % (11.5-14.5) Platelet Count 469 x10^3/uL (140-400) 507 x10^3/uL (140-400) 443 x10^3/uL (140-400) Neutrophils (%) (Auto) 83 % (31-73) 83 % (31-73) Lymphocytes (%) (Auto) 8 % (24-48) 6 % (24-48) Monocytes (%) (Auto) 7 % (0-9) 9 % (0-9) Eosinophils (%) (Auto) 1 % (0-3) 1 % (0-3) Basophils (%) (Auto) 1 % (0-3) 1 % (0-3) Neutrophils # (Auto) 9.9 x10^3/uL (1.8-7.7) 14.8 x10^3/uL (1.8-7.7) Lymphocytes # (Auto) 1.0 x10^3/uL (1.0-4.8) 1.1 x10^3/uL (1.0-4.8) Monocytes # (Auto) 0.9 x10^3/uL (0.0-1.1) 1.7 x10^3/uL (0.0-1.1) Eosinophils # (Auto) 0.1 x10^3/uL (0.0-0.7) 0.1 x10^3/uL (0.0-0.7) Basophils # (Auto) 0.1 x10^3/uL (0.0-0.2) 0.2 x10^3/uL (0.0-0.2) Prothrombin Time 28.7 SEC (11.7-14.0) 34.5 SEC (11.7-14.0) 43.2 SEC (11.7-14.0) Prothromb Time International Ratio 2.7 (0.8-1.1) 3.4 (0.8-1.1) 4.5 (0.8-1.1) Sodium Level 147 mmol/L (136-145) 142 mmol/L (136-145) 143 mmol/L (136-145) 143 mmol/L (136-145) Potassium Level 2.8 mmol/L (3.5-5.1) 3.1 mmol/L (3.5-5.1) 3.4 mmol/L (3.5-5.1) 4.5 mmol/L (3.5-5.1) Chloride Level 107 mmol/L (98-107) 107 mmol/L (98-107) 109 mmol/L (98-107) 112 mmol/L (98-107) Carbon Dioxide Level 26 mmol/L (21-32) 25 mmol/L (21-32) 22 mmol/L (21-32) 19 mmol/L (21-32) Anion Gap 14 (6-14) 10 (6-14) 12 (6-14) 12 (6-14) Blood Urea Nitrogen 9 mg/dL (8-26) 14 mg/dL (8-26) 27 mg/dL (8-26) 55 mg/dL (8-26) Creatinine 0.7 mg/dL (0.7-1.3) 0.7 mg/dL (0.7-1.3) 0.9 mg/dL (0.7-1.3) 1.4 mg/dL (0.7-1.3) Estimated GFR (Cockcroft-Gault) 116.2 116.2 87.0 52.2 BUN/Creatinine Ratio 13 (6-20) Glucose Level 108 mg/dL (70-99) 129 mg/dL (70-99) 158 mg/dL (70-99) 186 mg/dL (70-99) Calcium Level 8.8 mg/dL (8.5-10.1) 8.3 mg/dL (8.5-10.1) 8.2 mg/dL (8.5-10.1) 8.0 mg/dL (8.5-10.1) Total Bilirubin 0.4 mg/dL (0.2-1.0) Aspartate Amino Transf (AST/SGOT) 20 U/L (15-37) Alanine Aminotransferase (ALT/SGPT) 19 U/L (16-63) Alkaline Phosphatase 49 U/L (46-116) Total Protein 6.6 g/dL (6.4-8.2) Albumin 3.2 g/dL (3.4-5.0) Albumin/Globulin Ratio 0.9 (1.0-1.7) Procalcitonin < 0.10 ng/mL (0.00-0.10) Lactic Acid Level 2.4 mmol/L (0.4-2.0) Troponin I Quantitative 0.031 ng/mL (0.000-0.055) Test 12/24/18 10:26 12/24/18 10:45 12/24/18 13:17 12/24/18 13:40 O2 Saturation 98 % (92-99) 98 % (92-99) Arterial Blood pH 7.36 (7.35-7.45) 7.38 (7.35-7.45) Arterial Blood pCO2 at Patient Temp 18 mmHg (35-46) 21 mmHg (35-46) Arterial Blood pO2 at Patient Temp 126 mmHg (75-108) 120 mmHg (75-108) Arterial Blood HCO3 10 mmol/L (21-28) 12 mmol/L (21-28) Arterial Blood Base Excess -14 mmol/L (-3-3) -12 mmol/L (-3-3) Oxyhemoglobin 96.8 % Methemoglobin 0.5 % (0.0-1.9) Carbon Monoxide, Quantitative 0.5 % (0.0-1.9) FiO2 36 40 White Blood Count 16.6 x10^3/uL (4.0-11.0) Red Blood Count 2.79 x10^6/uL (4.30-5.70) Hemoglobin 7.2 g/dL (13.0-17.5) Hematocrit 22.8 % (39.0-53.0) Mean Corpuscular Volume 82 fL (79-100) Mean Corpuscular Hemoglobin 26 pg (25-35) Mean Corpuscular Hemoglobin Concent 31 g/dL (31-37) Red Cell Distribution Width 20.5 % (11.5-14.5) Platelet Count 470 x10^3/uL (140-400) Neutrophils (%) (Auto) 86 % (31-73) Lymphocytes (%) (Auto) 7 % (24-48) Monocytes (%) (Auto) 6 % (0-9) Eosinophils (%) (Auto) 0 % (0-3) Basophils (%) (Auto) 0 % (0-3) Neutrophils # (Auto) 14.3 x10^3/uL (1.8-7.7) Lymphocytes # (Auto) 1.2 x10^3/uL (1.0-4.8) Monocytes # (Auto) 1.1 x10^3/uL (0.0-1.1) Eosinophils # (Auto) 0.0 x10^3/uL (0.0-0.7) Basophils # (Auto) 0.1 x10^3/uL (0.0-0.2) Segmented Neutrophils % 86 % (35-66) Band Neutrophils % 3 % (0-9) Lymphocytes % 7 % (24-48) Monocytes % 4 % (0-10) Platelet Estimate Adequate (ADEQUATE) Anisocytosis Present Sodium Level 142 mmol/L (136-145) Potassium Level 5.0 mmol/L (3.5-5.1) Chloride Level 109 mmol/L (98-107) Carbon Dioxide Level 15 mmol/L (21-32) Anion Gap 18 (6-14) Blood Urea Nitrogen 55 mg/dL (8-26) Creatinine 1.7 mg/dL (0.7-1.3) Estimated GFR (Cockcroft-Gault) 41.8 BUN/Creatinine Ratio 32 (6-20) Glucose Level 237 mg/dL (70-99) Calcium Level 8.1 mg/dL (8.5-10.1) Magnesium Level 1.9 mg/dL (1.8-2.4) Total Bilirubin 0.4 mg/dL (0.2-1.0) Aspartate Amino Transf (AST/SGOT) 21 U/L (15-37) Alanine Aminotransferase (ALT/SGPT) 18 U/L (16-63) Alkaline Phosphatase 32 U/L (46-116) Ammonia 92 mcmol/L (11-34) Total Protein 4.6 g/dL (6.4-8.2) Albumin 2.3 g/dL (3.4-5.0) Albumin/Globulin Ratio 1.0 (1.0-1.7) Procalcitonin 0.64 ng/mL (0.00-0.10) Glucose (Fingerstick) 157 mg/dL (70-99) Test 12/24/18 15:05 Prothrombin Time 34.1 SEC (11.7-14.0) Prothromb Time International Ratio 3.4 (0.8-1.1) Lactic Acid Level 5.2 mmol/L (0.4-2.0) Laboratory Tests Test 12/23/18 23:00 12/24/18 02:05 12/24/18 09:20 12/24/18 10:26 Sodium Level 142 mmol/L (136-145) 143 mmol/L (136-145) 143 mmol/L (136-145) Potassium Level 3.1 mmol/L (3.5-5.1) 3.4 mmol/L (3.5-5.1) 4.5 mmol/L (3.5-5.1) Chloride Level 107 mmol/L (98-107) 109 mmol/L (98-107) 112 mmol/L (98-107) Carbon Dioxide Level 25 mmol/L (21-32) 22 mmol/L (21-32) 19 mmol/L (21-32) Anion Gap 10 (6-14) 12 (6-14) 12 (6-14) Blood Urea Nitrogen 14 mg/dL (8-26) 27 mg/dL (8-26) 55 mg/dL (8-26) Creatinine 0.7 mg/dL (0.7-1.3) 0.9 mg/dL (0.7-1.3) 1.4 mg/dL (0.7-1.3) Estimated GFR (Cockcroft-Gault) 116.2 87.0 52.2 Glucose Level 129 mg/dL (70-99) 158 mg/dL (70-99) 186 mg/dL (70-99) Calcium Level 8.3 mg/dL (8.5-10.1) 8.2 mg/dL (8.5-10.1) 8.0 mg/dL (8.5-10.1) White Blood Count 17.8 x10^3/uL (4.0-11.0) 18.0 x10^3/uL (4.0-11.0) Red Blood Count 3.97 x10^6/uL (4.30-5.70) 2.94 x10^6/uL (4.30-5.70) Hemoglobin 10.1 g/dL (13.0-17.5) 7.5 g/dL (13.0-17.5) Hematocrit 31.6 % (39.0-53.0) 23.8 % (39.0-53.0) Mean Corpuscular Volume 80 fL (79-100) 81 fL (79-100) Mean Corpuscular Hemoglobin 26 pg (25-35) 26 pg (25-35) Mean Corpuscular Hemoglobin Concent 32 g/dL (31-37) 32 g/dL (31-37) Red Cell Distribution Width 21.1 % (11.5-14.5) 21.1 % (11.5-14.5) Platelet Count 507 x10^3/uL (140-400) 443 x10^3/uL (140-400) Neutrophils (%) (Auto) 83 % (31-73) Lymphocytes (%) (Auto) 6 % (24-48) Monocytes (%) (Auto) 9 % (0-9) Eosinophils (%) (Auto) 1 % (0-3) Basophils (%) (Auto) 1 % (0-3) Neutrophils # (Auto) 14.8 x10^3/uL (1.8-7.7) Lymphocytes # (Auto) 1.1 x10^3/uL (1.0-4.8) Monocytes # (Auto) 1.7 x10^3/uL (0.0-1.1) Eosinophils # (Auto) 0.1 x10^3/uL (0.0-0.7) Basophils # (Auto) 0.2 x10^3/uL (0.0-0.2) Prothrombin Time 34.5 SEC (11.7-14.0) 43.2 SEC (11.7-14.0) Prothromb Time International Ratio 3.4 (0.8-1.1) 4.5 (0.8-1.1) Lactic Acid Level 2.4 mmol/L (0.4-2.0) Troponin I Quantitative 0.031 ng/mL (0.000-0.055) O2 Saturation 98 % (92-99) Arterial Blood pH 7.36 (7.35-7.45) Arterial Blood pCO2 at Patient Temp 18 mmHg (35-46) Arterial Blood pO2 at Patient Temp 126 mmHg (75-108) Arterial Blood HCO3 10 mmol/L (21-28) Arterial Blood Base Excess -14 mmol/L (-3-3) Oxyhemoglobin 96.8 % Methemoglobin 0.5 % (0.0-1.9) Carbon Monoxide, Quantitative 0.5 % (0.0-1.9) FiO2 36 Test 12/24/18 10:45 12/24/18 13:17 12/24/18 13:40 12/24/18 15:05 White Blood Count 16.6 x10^3/uL (4.0-11.0) Red Blood Count 2.79 x10^6/uL (4.30-5.70) Hemoglobin 7.2 g/dL (13.0-17.5) Hematocrit 22.8 % (39.0-53.0) Mean Corpuscular Volume 82 fL (79-100) Mean Corpuscular Hemoglobin 26 pg (25-35) Mean Corpuscular Hemoglobin Concent 31 g/dL (31-37) Red Cell Distribution Width 20.5 % (11.5-14.5) Platelet Count 470 x10^3/uL (140-400) Neutrophils (%) (Auto) 86 % (31-73) Lymphocytes (%) (Auto) 7 % (24-48) Monocytes (%) (Auto) 6 % (0-9) Eosinophils (%) (Auto) 0 % (0-3) Basophils (%) (Auto) 0 % (0-3) Neutrophils # (Auto) 14.3 x10^3/uL (1.8-7.7) Lymphocytes # (Auto) 1.2 x10^3/uL (1.0-4.8) Monocytes # (Auto) 1.1 x10^3/uL (0.0-1.1) Eosinophils # (Auto) 0.0 x10^3/uL (0.0-0.7) Basophils # (Auto) 0.1 x10^3/uL (0.0-0.2) Segmented Neutrophils % 86 % (35-66) Band Neutrophils % 3 % (0-9) Lymphocytes % 7 % (24-48) Monocytes % 4 % (0-10) Platelet Estimate Adequate (ADEQUATE) Anisocytosis Present Sodium Level 142 mmol/L (136-145) Potassium Level 5.0 mmol/L (3.5-5.1) Chloride Level 109 mmol/L (98-107) Carbon Dioxide Level 15 mmol/L (21-32) Anion Gap 18 (6-14) Blood Urea Nitrogen 55 mg/dL (8-26) Creatinine 1.7 mg/dL (0.7-1.3) Estimated GFR (Cockcroft-Gault) 41.8 BUN/Creatinine Ratio 32 (6-20) Glucose Level 237 mg/dL (70-99) Calcium Level 8.1 mg/dL (8.5-10.1) Magnesium Level 1.9 mg/dL (1.8-2.4) Total Bilirubin 0.4 mg/dL (0.2-1.0) Aspartate Amino Transf (AST/SGOT) 21 U/L (15-37) Alanine Aminotransferase (ALT/SGPT) 18 U/L (16-63) Alkaline Phosphatase 32 U/L (46-116) Ammonia 92 mcmol/L (11-34) Total Protein 4.6 g/dL (6.4-8.2) Albumin 2.3 g/dL (3.4-5.0) Albumin/Globulin Ratio 1.0 (1.0-1.7) Procalcitonin 0.64 ng/mL (0.00-0.10) O2 Saturation 98 % (92-99) Arterial Blood pH 7.38 (7.35-7.45) Arterial Blood pCO2 at Patient Temp 21 mmHg (35-46) Arterial Blood pO2 at Patient Temp 120 mmHg (75-108) Arterial Blood HCO3 12 mmol/L (21-28) Arterial Blood Base Excess -12 mmol/L (-3-3) FiO2 40 Glucose (Fingerstick) 157 mg/dL (70-99) Prothrombin Time 34.1 SEC (11.7-14.0) Prothromb Time International Ratio 3.4 (0.8-1.1) Lactic Acid Level 5.2 mmol/L (0.4-2.0) BENNY VIDES MD Dec 24, 2018 17:05
--- NOTE | 2018-12-24 17:25 | PDOC ---
PROGRESS NOTES Assessment Assessment Toxic encephalopathy. Metabolic encephalopathy. Alcohol intoxication, alcohol level 231 on 12/10/18. GI bleeding. Anemia. Acute respiratory failure. Hx of seizure? AFib was on Coumadin. HTN. HLD. COPD. Peripheral neuropathy. Thrombocytosis. RECOMMENDATIONS/PLAN: Life support in ICU. Blood transfusion. Consulted GI. Continue Vit B1 supplement. Treat medical diseases. Avoid Haldol as possible. EEG on 12/18/17: No seizure activity. Borderline study. Brain MRI: No acute findings. HISTORY OF THE PRESENT ILLNESS: This is a 58-year-old male patient with history of above medical diseases and alcohol use/abuse presented to the emergency room on 12/10/18 with complaints of mechanical fall down 5 steps. He was intoxicated hit his head complained of neck pain and upper back pain and chest pain. He admitted that he had pain all over and he drank 9 beers that day. He he drinks regularly. Patient does take Coumadin for a Afib and valve disorder (?). Neurology was requested for consultation on 12/17/18 due to his prolonged mental status changes. He had MS changes and acute respiratory failure and was found to have acute blood loss. He was transferred to ICU overnight. Past Medical History Cardiovascular: AFIB, HTN, Other Pulmonary: COPD CENTRAL NERVOUS SYSTEM: Periperal neuropathy, Seizure GI: GERD Psych: Anxiety, Addictions, Depression Rheumatologic: Other Renal/: Benign prostatic enlarg. Past Surgical History No pertinent history Family History Hypertension ALLERGY: NKDA MEDICATIONS: Refer to [facility] SOCIAL HISTORY: He drinks alcohol heavily for many years. He uses marijuana. REVIEW OF SYSTEMS: Constitutional: No cachexia. Head: No current traumatic brain or head injury. Skin: No edema, or rash. Ear: No infection. Eyes: No vision loss or color blindness. Nose: No bleeding or purulent discharges. Hearing: No hearing decrease. Neck: No injury. Cardiac: AFib, HTN. Pulmonary: COPD. GI: GERD. Urinary/genital: No dysuria, incontinence, urinary retention. Endocrinologic: No cousin face, craniofacial dysmorphism, polydactyly. Skeletomuscular: No muscular atrophy, deformity. Neurological: see HP. Psychiatric: Alcohol and marijuana use/abuse. Otherwise, not [id number] review of systems. PHYSICAL EXAMINATION: General appearance is in subacute distress. HEENT: Normocephalic and nontraumatic. Eyes, nose, ears, and throat are unrema rkable. Neck is supple. No lymphadenopathy. No crepitus. Cardiovascular: S1, S2, regular rate and rhythm. Pulmonary: Seemed clear to auscultation bilaterally. Abdomen: Bowel sounds are positive. Extremities: No rash, lesions, or edema. No restriction of range of motion NEUROLOGICAL EXAMINATION: On vent. Unresponsive. Not oriented to time, place and person. PERRL. EOMI not elicited. CN: no acute focal findings. Muscle tone: WNL. Muscle strength: No movements noted. DTR: 0-1 Plantar reflex: Neutral response bilaterally Gait: Unable to walk. Sensory exam: withdraw response noted to stimuli. Not able to access cerebellar signs. F-T-N test not performed due to unresponsiveness. Objective Objective Vital Signs Date Time Temp Pulse Resp B/P (MAP) Pulse Ox O2 Delivery O2 Flow Rate FiO2 12/24/18 17:09 153 136/84 12/24/18 16:32 100 Ventilator 12/24/18 16:00 98.7 98.7 12/24/18 14:15 32 12/24/18 11:45 2.0 Intake and Output 12/24/18 07:00 Output Total 200 ml Balance -200 ml Output Urine Total 200 ml Vitals Signs Vitals VS - Last 72 Hours, by Label Date Time Temp Pulse Resp B/P (MAP) Pulse Ox O2 Delivery O2 Flow Rate FiO2 12/24/18 17:09 153 136/84 12/24/18 16:32 100 Ventilator 12/24/18 16:15 153 112/80 (91) 100 Ventilator 12/24/18 16:15 166 110/69 (83) 100 Ventilator 12/24/18 16:00 98.7 164 135/71 (92) 100 Ventilator 98.7 12/24/18 15:30 166 115/72 (86) 100 Ventilator 12/24/18 15:15 168 105/67 (80) 100 Ventilator 12/24/18 15:00 124 108/53 (71) 100 Ventilator 12/24/18 14:45 132 102/62 (75) 100 Ventilator 12/24/18 14:30 136 80/56 (64) 100 Ventilator 12/24/18 14:15 144 100 Ventilator 12/24/18 14:15 98.5 141 32 90/52 98.5 12/24/18 14:00 98.2 144 44 85/56 98.2 12/24/18 14:00 140 100 Ventilator 12/24/18 13:46 100 Ventilator 12/24/18 13:42 98.7 133 30 80/53 (62) 99 Ventilator 98.7 12/24/18 12:51 144 85/51 (62) 100 Ventilator 12/24/18 12:38 99.5 135 31 85/51 99.5 12/24/18 12:25 126 102/45 (64) 100 Ventilator 12/24/18 12:15 126 100 Ventilator 12/24/18 12:00 124 100 Ventilator 12/24/18 11:47 100 Ventilator 12/24/18 11:45 130 35 66/38 (47) 100 Nasal Cannula 2.0 12/24/18 11:30 99.4 134 60 70/48 (55) 86 Nasal Cannula 2.0 99.4 12/24/18 11:00 99.0 144 42 104/53 (70) 96 Nasal Cannula 2.0 99.0 12/24/18 08:20 100 Nasal Cannula 2.0 12/24/18 08:15 Nasal Cannula 2.0 12/24/18 07:22 150 104/67 12/24/18 07:00 98.7 122 38 100/54 (69) 98 Nasal Cannula 2.0 98.7 12/24/18 06:25 146 36 95/59 (71) Nasal Cannula 2.0 12/24/18 05:26 98.1 163 37 102/66 (78) 98 Nasal Cannula 2.0 98.1 12/24/18 01:12 121 150/90 12/23/18 23:53 98.3 121 20 150/90 (110) 97 Nasal Cannula 2.0 98.3 12/23/18 22:16 117 154/91 12/23/18 21:00 117 154/91 12/23/18 20:42 96 Nasal Cannula 2.0 12/23/18 20:18 Nasal Cannula 2.0 12/23/18 19:11 98.4 117 20 154/91 (112) 96 Room Air 98.4 12/23/18 17:54 108 169/90 12/23/18 15:51 Nasal Cannula 2.0 12/23/18 15:19 108 169/90 12/23/18 14:25 98.6 108 20 169/90 (116) 96 2.0 98.6 12/23/18 12:16 106 170/96 12/23/18 11:59 Nasal Cannula 2.0 12/23/18 11:28 99.0 106 16 170/96 (120) 94 2.0 99.0 12/23/18 09:55 94 159/94 (115) 12/23/18 09:36 115 166/87 12/23/18 08:38 100 Nasal Cannula 2.0 12/23/18 08:08 97.7 115 20 166/87 (113) 94 Nasal Cannula 2.0 97.7 12/23/18 08:00 Nasal Cannula 2.0 12/23/18 07:00 97.7 115 20 166/87 (113) 94 Nasal Cannula 2.0 97.7 Laboratory Laboratory Laboratory Tests Test 12/23/18 23:00 12/24/18 02:05 12/24/18 09:20 12/24/18 10:26 Sodium Level 142 mmol/L (136-145) 143 mmol/L (136-145) 143 mmol/L (136-145) Potassium Level 3.1 mmol/L (3.5-5.1) 3.4 mmol/L (3.5-5.1) 4.5 mmol/L (3.5-5.1) Chloride Level 107 mmol/L (98-107) 109 mmol/L (98-107) 112 mmol/L (98-107) Carbon Dioxide Level 25 mmol/L (21-32) 22 mmol/L (21-32) 19 mmol/L (21-32) Anion Gap 10 (6-14) 12 (6-14) 12 (6-14) Blood Urea Nitrogen 14 mg/dL (8-26) 27 mg/dL (8-26) 55 mg/dL (8-26) Creatinine 0.7 mg/dL (0.7-1.3) 0.9 mg/dL (0.7-1.3) 1.4 mg/dL (0.7-1.3) Estimated GFR (Cockcroft-Gault) 116.2 87.0 52.2 Glucose Level 129 mg/dL (70-99) 158 mg/dL (70-99) 186 mg/dL (70-99) Calcium Level 8.3 mg/dL (8.5-10.1) 8.2 mg/dL (8.5-10.1) 8.0 mg/dL (8.5-10.1) White Blood Count 17.8 x10^3/uL (4.0-11.0) 18.0 x10^3/uL (4.0-11.0) Red Blood Count 3.97 x10^6/uL (4.30-5.70) 2.94 x10^6/uL (4.30-5.70) Hemoglobin 10.1 g/dL (13.0-17.5) 7.5 g/dL (13.0-17.5) Hematocrit 31.6 % (39.0-53.0) 23.8 % (39.0-53.0) Mean Corpuscular Volume 80 fL (79-100) 81 fL (79-100) Mean Corpuscular Hemoglobin 26 pg (25-35) 26 pg (25-35) Mean Corpuscular Hemoglobin Concent 32 g/dL (31-37) 32 g/dL (31-37) Red Cell Distribution Width 21.1 % (11.5-14.5) 21.1 % (11.5-14.5) Platelet Count 507 x10^3/uL (140-400) 443 x10^3/uL (140-400) Neutrophils (%) (Auto) 83 % (31-73) Lymphocytes (%) (Auto) 6 % (24-48) Monocytes (%) (Auto) 9 % (0-9) Eosinophils (%) (Auto) 1 % (0-3) Basophils (%) (Auto) 1 % (0-3) Neutrophils # (Auto) 14.8 x10^3/uL (1.8-7.7) Lymphocytes # (Auto) 1.1 x10^3/uL (1.0-4.8) Monocytes # (Auto) 1.7 x10^3/uL (0.0-1.1) Eosinophils # (Auto) 0.1 x10^3/uL (0.0-0.7) Basophils # (Auto) 0.2 x10^3/uL (0.0-0.2) Prothrombin Time 34.5 SEC (11.7-14.0) 43.2 SEC (11.7-14.0) Prothromb Time International Ratio 3.4 (0.8-1.1) 4.5 (0.8-1.1) Lactic Acid Level 2.4 mmol/L (0.4-2.0) Troponin I Quantitative 0.031 ng/mL (0.000-0.055) O2 Saturation 98 % (92-99) Arterial Blood pH 7.36 (7.35-7.45) Arterial Blood pCO2 at Patient Temp 18 mmHg (35-46) Arterial Blood pO2 at Patient Temp 126 mmHg (75-108) Arterial Blood HCO3 10 mmol/L (21-28) Arterial Blood Base Excess -14 mmol/L (-3-3) Oxyhemoglobin 96.8 % Methemoglobin 0.5 % (0.0-1.9) Carbon Monoxide, Quantitative 0.5 % (0.0-1.9) FiO2 36 Test 12/24/18 10:45 12/24/18 13:17 12/24/18 13:40 12/24/18 15:05 White Blood Count 16.6 x10^3/uL (4.0-11.0) Red Blood Count 2.79 x10^6/uL (4.30-5.70) Hemoglobin 7.2 g/dL (13.0-17.5) Hematocrit 22.8 % (39.0-53.0) Mean Corpuscular Volume 82 fL (79-100) Mean Corpuscular Hemoglobin 26 pg (25-35) Mean Corpuscular Hemoglobin Concent 31 g/dL (31-37) Red Cell Distribution Width 20.5 % (11.5-14.5) Platelet Count 470 x10^3/uL (140-400) Neutrophils (%) (Auto) 86 % (31-73) Lymphocytes (%) (Auto) 7 % (24-48) Monocytes (%) (Auto) 6 % (0-9) Eosinophils (%) (Auto) 0 % (0-3) Basophils (%) (Auto) 0 % (0-3) Neutrophils # (Auto) 14.3 x10^3/uL (1.8-7.7) Lymphocytes # (Auto) 1.2 x10^3/uL (1.0-4.8) Monocytes # (Auto) 1.1 x10^3/uL (0.0-1.1) Eosinophils # (Auto) 0.0 x10^3/uL (0.0-0.7) Basophils # (Auto) 0.1 x10^3/uL (0.0-0.2) Segmented Neutrophils % 86 % (35-66) Band Neutrophils % 3 % (0-9) Lymphocytes % 7 % (24-48) Monocytes % 4 % (0-10) Platelet Estimate Adequate (ADEQUATE) Anisocytosis Present Sodium Level 142 mmol/L (136-145) Potassium Level 5.0 mmol/L (3.5-5.1) Chloride Level 109 mmol/L (98-107) Carbon Dioxide Level 15 mmol/L (21-32) Anion Gap 18 (6-14) Blood Urea Nitrogen 55 mg/dL (8-26) Creatinine 1.7 mg/dL (0.7-1.3) Estimated GFR (Cockcroft-Gault) 41.8 BUN/Creatinine Ratio 32 (6-20) Glucose Level 237 mg/dL (70-99) Calcium Level 8.1 mg/dL (8.5-10.1) Magnesium Level 1.9 mg/dL (1.8-2.4) Total Bilirubin 0.4 mg/dL (0.2-1.0) Aspartate Amino Transf (AST/SGOT) 21 U/L (15-37) Alanine Aminotransferase (ALT/SGPT) 18 U/L (16-63) Alkaline Phosphatase 32 U/L (46-116) Ammonia 92 mcmol/L (11-34) Total Protein 4.6 g/dL (6.4-8.2) Albumin 2.3 g/dL (3.4-5.0) Albumin/Globulin Ratio 1.0 (1.0-1.7) Procalcitonin 0.64 ng/mL (0.00-0.10) O2 Saturation 98 % (92-99) Arterial Blood pH 7.38 (7.35-7.45) Arterial Blood pCO2 at Patient Temp 21 mmHg (35-46) Arterial Blood pO2 at Patient Temp 120 mmHg (75-108) Arterial Blood HCO3 12 mmol/L (21-28) Arterial Blood Base Excess -12 mmol/L (-3-3) FiO2 40 Glucose (Fingerstick) 157 mg/dL (70-99) Prothrombin Time 34.1 SEC (11.7-14.0) Prothromb Time International Ratio 3.4 (0.8-1.1) Lactic Acid Level 5.2 mmol/L (0.4-2.0) Microbiology 12/20/18 Blood Culture - Preliminary, Resulted NO GROWTH AFTER 4 DAYS 12/20/18 Urine Culture - Final, Complete 12/20/18 Urine Culture Result 1 (AMARA) - Final, Complete Medication Medications Current Medications Albumin Human 500 ml @ 125 mls/hr 1X ONCE IV Last administered on 12/24/18at 14:39; Start 12/24/18 at 14:45; Stop 12/24/18 at 18:44 Albumin Human 500 ml @ As Directed STK-MED ONCE IV ; Start 12/24/18 at 14:37; Stop 12/24/18 at 14:37; Status DC Amiodarone HCl 150 mg/Dextrose 103 ml @ 618 mls/hr 1X ONCE IV Last administered on 12/24/18at 17:09; Start 12/24/18 at 16:00; Stop 12/24/18 at 16:09; Status DC Amiodarone HCl 900 mg/Dextrose 518 ml @ 0 mls/hr CONT PRN IV SEE I/O RECORD; Start 12/24/18 at 16:00 Atropine Sulfate (ATROPINE 1mg SYRINGE) 1 mg STK-MED ONCE .ROUTE ; Start 12/24/18 at 11:30; Stop 12/24/18 at 11:30; Status DC Cefepime HCl (Maxipime) 2 gm Q8HRS IVP ; Start 12/24/18 at 10:00 Daptomycin 460 mg/ Sodium Chloride 50 ml @ 100 mls/hr Q24H IV Last administered on 12/24/18at 12:07; Start 12/24/18 at 11:00 Digoxin (Lanoxin) 500 mcg 1X ONCE IV ; Start 12/24/18 at 15:30; Stop 12/24/18 at 15:31; Status DC Digoxin (Lanoxin) 500 mcg STK-MED ONCE .ROUTE ; Start 12/24/18 at 15:07; Stop 12/24/18 at 15:08; Status DC Dobutamine HCl/ Dextrose 250 ml @ 0 mls/hr CONT PRN IV SEE COMMENTS; Start 12/24/18 at 11:00 Epinephrine HCl (Adrenalin) 1 mg STK-MED ONCE .ROUTE ; Start 12/24/18 at 11:30; Stop 12/24/18 at 11:30; Status DC Epinephrine HCl (EPINEPHrine SYRINGE) 1 mg 1X ONCE IV ; Start 12/24/18 at 11:45; Stop 12/24/18 at 11:46; Status DC Fentanyl Citrate 30 ml @ 0 mls/hr CONT PRN IV SEE PROTOCOL Last administered on 12/24/18at 12:36; Start 12/24/18 at 12:00 Info ([facility] Electrolyte Protocol) 1 ea DAILY MC ; Start 12/25/18 at 09:00 Lorazepam (Ativan) 1 mg PRN Q6HRS PRN PO ANXIETY / AGITATION 1ST CHOICE; Start 12/24/18 at 10:45 Metoclopramide HCl (Reglan Vial) 10 mg 1X ONCE IVP Last administered on 12/24/18at 15:00; Start 12/24/18 at 12:45; Stop 12/24/18 at 12:46; Status DC Metronidazole 100 ml @ 100 mls/hr Q8HRS IV ; Start 12/24/18 at 10:00 Micafungin Sodium 100 mg/Dextrose 100 ml @ 100 mls/hr Q24H IV ; Start 12/24/18 at 12:00 Midazolam HCl 100 ml @ 5 mls/hr CONT PRN IV SEE I/O RECORD Last administered on 12/24/18at 12:27; Start 12/24/18 at 12:00 Midazolam HCl (Versed) 2 mg 1X ONCE IV Last administered on 12/24/18at 11:30; Start 12/24/18 at 11:45; Stop 12/24/18 at 11:46; Status DC Midazolam HCl (Versed) 2 mg 1X ONCE IV ; Start 12/24/18 at 12:15; Stop 12/24/18 at 12:16; Status DC Midazolam HCl (Versed) 5 mg STK-MED ONCE .ROUTE ; Start 12/24/18 at 11:21; Stop 12/24/18 at 11:21; Status DC Norepinephrine Bitartrate 250 ml @ 0 mls/hr CONT PRN IV SEE COMMENTS Last administered on 12/24/18at 15:08; Start 12/24/18 at 11:00 Ondansetron HCl (Zofran) 4 mg PRN Q6HRS PRN IV NAUSEA/VOMITING; Start 12/24/18 at 10:45; Stop 12/24/18 at 10:52; Status DC Pantoprazole Sodium 80 mg/ Sodium Chloride 100 ml @ 10 mls/hr Q10H IV Last administered on 12/24/18at 12:08; Start 12/24/18 at 11:00 Phytonadione (Vitamin K Ampule) 5 mg 1X ONCE SQ Last administered on 12/24/18at 12:24; Start 12/24/18 at 11:15; Stop 12/24/18 at 11:22; Status DC Phytonadione (Vitamin K Ampule) 10 mg 1X ONCE SQ ; Start 12/24/18 at 15:45; Stop 12/24/18 at 15:49; Status DC Phytonadione (Vitamin K Ampule) 10 mg 1X ONCE SQ ; Start 12/24/18 at 17:00; Stop 12/24/18 at 17:01; Status DC Sodium Bicarbonate (Sodium Bicarb Adult 8.4% Syr) 100 meq 1X ONCE IV Last administered on 12/24/18at 11:16; Start 12/24/18 at 11:15; Stop 12/24/18 at 11:16; Status DC Sodium Chloride 500 ml @ 1,000 mls/hr PRN Q30MIN PRN IV SEE COMMENTS; Start 12/24/18 at 11:00 Sodium Chloride 1,000 ml @ 1,000 mls/hr 1X ONCE IV ; Start 12/24/18 at 11:45; Stop 12/24/18 at 12:44; Status DC Sodium Chloride 1,000 ml @ 2,130 mls/hr Q29M IV Last administered on 12/24/18at 12:13; Start 12/24/18 at 10:50; Stop 12/24/18 at 11:50; Status DC Sodium Chloride (Normal Saline Flush) 3 ml QSHIFT PRN IV AFTER MEDS AND BLOOD DRAWS; Start 12/24/18 at 10:45 Succinylcholine Chloride (Anectine) 60 mg 1X ONCE IV Last administered on 12/24/18at 12:04; Start 12/24/18 at 11:45; Stop 12/24/18 at 11:46; Status DC Succinylcholine Chloride (Anectine) 200 mg STK-MED ONCE .ROUTE ; Start 12/24/18 at 11:20; Stop 12/24/18 at 11:21; Status DC Vasopressin 40 unit/Dextrose 102 ml @ 6 mls/hr CONT PRN IV SEE I/O RECORD Last administered on 12/24/18at 13:17; Start 12/24/18 at 13:00 Warfarin Sodium (Coumadin - No Dose Today) 1 each 1X WARF ONCE MC ; Start 12/24/18 at 16:00; Stop 12/24/18 at 16:01; Status DC Comment Review of Relevant I have reviewed the following items robert (where applicable) has been applied. JAMEL BONILLA MD Dec 24, 2018 17:25
[2018-12-24] MEDS: MICAFUNGIN 100 MG in IV DEXTROSE 5% 100ML 100 ML IV SCH (18:42)
--- NOTE | 2018-12-24 19:04 | NUR ---
1120 Dr. Ni here to see patient and explain to family plan for intubation since patient's respiratory status is unstable and tachypneic. 1137 Patient intubated with 7.5 et tube to 24 at the lip. 1200 OG inserted to 60 cm, placement confirmed with air bolus, attached to Intermittent suction and immediately had 650 mil dark liquid out. Patient's blood pressure extremely low so Levophed initiated at 1203; blood pressures low with mean only requiring steady increase of Levophed per protocol up to 0.4848 which is 70 ml/hr on the IV pump. Blood pressure continued to be low with intermittent readings of mean only so Vasopressin initiated @ 13:17. OG lavaged with 30 cc water since output from suction had stopped and 200 ml more dark liquid suctioned out. Patient's heart rate then increased with highest at 180 with episodes of afib. Digoxin given initially and when HR continued to be elevated higher than 150, Vandana KEANE notified and orders received for Amiodarone. Total of 3 Units FFP given with the 3rd one completed at 1855; 2 Units PRBC given. Amiodarone currently infusing at 33.3 ml/hr at 19:04.
--- NOTE | 2018-12-24 20:45 | NUR ---
Dr. Caraballo called this RN around 1999 about if patient was having any more bloody stools, this RN reported that patient had a small amount of black liquid stool in rectal tube, Dr Caraballo requested new H&H labs and this RN mentioned there was an order for one at 2200, that could drawn after the current FFP infusion finished and get both INR and HH labs at the same time, Dr. Caraballo said he was okay with this plan. Dr. Caraballo also requested this RN call Dr. Israel and get his opinion about patient receiving rectal lactulose. This RN called Dr. Israel following the above conversation. Dr. Israel stated there was no benefit for the patient to receive rectal lactulose at this time.
[2018-12-24 21:06] LABS: BILIRUBIN,URINE NEGATIVE (NEG); CLARITY,URINE CLEAR; COLOR,URINE YELLOW; NITRITE,URINE NEGATIVE (NEG); PH,URINE 5.5; PROTEIN,URINE 30 mg/dL (NEG-TRACE); UROBILINOGEN,URINE 0.2 mg/dL (0.2 mg/dL)
[2018-12-24 21:12] LABS: BACTERIA,URINE 0 /HPF (0-FEW); RBC,URINE OCC /HPF (0-2)
[2018-12-24 21:13] LABS: RED BLOOD COUNT 2.39 x10^6/uL (4.30-5.70); RED CELL DISTRIBUTION WIDTH 19.6 % (11.5-14.5); WHITE BLOOD COUNT 12.8 x10^3/uL (4.0-11.0)
[2018-12-24 21:14] LABS: AMORPHOUS SEDIMENT,UR PRESENT /HPF; GRANULAR CASTS,URINE MODERATE /HPF; HYALINE CASTS, URINE FEW /HPF
[2018-12-24 21:20] LABS: FIBRINOGEN 298 mg/dL (200-440); PARTIAL THROMBOPLASTIN TIME 33 SEC (24-38)
[2018-12-24 21:22] LABS: PROTHROMBIN TIME PATIENT 22.7 SEC (11.7-14.0)
[2018-12-24 21:24] LABS: HEMOGLOBIN 6.7 g/dL (13.0-17.5)
[2018-12-24 21:25] LABS: HEMATOCRIT 19.9 % (39.0-53.0)
--- NOTE | 2018-12-24 21:30 | NUR ---
Dr. Ni called and updated about latest ABG results that were drawn this evening. This RN received orders to turn rate down from 28 to 22 on the ventilator settings and to have ABGs redrawn in the morning. Orders placed and RT notified of this change.
--- NOTE | 2018-12-24 22:00 | NUR ---
Critical Hgb and Hct called at 2124 of 6.[address] Caraballo paged and this RN received orders to infuse 1 unit PRBC's and to have two units on hold. INR came back at this time as 2.0, and this RN paged Dr. Vides to update her on this latest value as she had ordered a dose Vitamin K to be given. Dr. Vides called back and told this RN to hold Vitamin K dose and asked if there were any recent HH results. This RN reported the critical values just received. Dr. Jacinto requested 2 units instead of 1 to be given at this time. This RN placed an order for 2 units PRBCs and for 2 units to be on hold. Blood bank updated about this situation.
--- NOTE | 2018-12-24 22:22 | PDOC ---
PROGRESS NOTES Chief Complaint Chief Complaint IMPRESSION impression 12/24 became SOA, HAD dark stool, now tachypnic will transfer to icu stat, chk NH4,stat CONSULT GI, PROTONIX DRIP, consult pulmonary, type and screen NH4 ELEVATED Fall ETOH withdrawal , severe Toxic encephalopathy Altered mental status, worse today Tachycardia SEVERE ALCOHOL ABUSE DYSPHAGIA POSSIBLE ASPIRATION 12/23New bandlike density in the right midlung which may represent subsegmental atelectasis versus infiltrate. Short-term follow-up radiograph is recommended to ensure resolution. 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 PPN, ///CONT IV ZOSYN 1/ NS BOLUS X 1 LITER 12/23 CONSULT Nephrology serum and urine osmolality REPLACE K IV 40MEQ X 1 12/23 CONSULT GI CONSULT IR CONSULT HEMATOLOGY 111 min cc time D/W DR HAMILTON IN [place] History of Present Illness History of Present Illness 12/24/18 Pt seen and examined bedside INC soa, tachy, dark stool x 2 altered mental status Was resting in BED DW RN; Charts and labs reviewed replace k FAILED SWALLOW TEST POOR PROGNOSIS CHK SERUM OSMOLALITY pending d/w DR HAMILTON 34 min pt exam, chart review CC TIME , > 50% of time spent with exam, chart review, pt care coordination 12/17/18 Pt seen and examined in ICU PT still sedated PEGGY RN that she tried to wean the patient off of Precedex but he continued to be combative so she had to continue the sedation meds Consulted neurology to make sure there isn't other pathology causing his mental status change Charts and labs reviewed NA 143 12/16/18 Pt seen and examined in the ICU Pt is sedated with IV Precedex PEGGY RN Pt was combative in the morning Charts and labs reviewed Na: 140 12/15/18 Pt seen and examined in the ICU Pt's son was seen leaving the room Pt is still sedated with Precedex Pt requested pain medications Chart and labs reviewed Hyponatremia resolved Pt is bradycardic with rate of 50 D/w RN 12/14/18 Pt seen and examined in the ICU Pt still sedated with Precedex INR 1.1 Hyponatremia has resolved PEGGY RN Reviewed chart 12/13/18 Pt seen and examined in the ICU Pt was combative and trying to get out of bed all morning. Pt was given Ativan, Haldol, Benadryl, Zyprexa and finally Fentanyl for patient safety. He was comfortably snoring. Discussed with son who was glad to see the pt finally asleep. PEGGY RN Vitals Vitals Vital Signs Date Time Temp Pulse Resp B/P (MAP) Pulse Ox O2 Delivery O2 Flow Rate FiO2 12/24/18 21:30 99.2 104 20 127/68 99.2 12/24/18 21:30 99 Ventilator 12/24/18 11:45 2.0 Physical Exam Physical Exam GENERAL: confusion NOT answering questions HEENT: Pupils are equally round and reactive. Oropharynx is pink and dry. NECK: Supple. LUNGS: Clear to auscultation. rr = 30 HEART: S1, S2. ABDOMEN: Obese, soft, and nontender with bowel sounds present. EXTREMITIES: No gross edema or cyanosis. [place] SKIN: Warm to touch. No signs of rash.some healing scraps NEUROLOGIC: encephalophic General: Cooperative, moderate distress, Other (confused , TACHYPNIC) Heart: Regular rate, Normal S1, Normal S2, No murmurs, Other (valvular click, TACHY 145) Lungs: Clear, Wheezing Abdomen: Normal bowel sounds, Soft, No tenderness, No masses (HEPATOMEGALY) Extremities: No clubbing, No cyanosis, Other (trace bilateral LE edema ) Skin: No significant lesion Labs LABS Laboratory Tests Test 12/23/18 23:00 12/24/18 02:05 12/24/18 09:20 12/24/18 10:26 Sodium Level 142 mmol/L (136-145) 143 mmol/L (136-145) 143 mmol/L (136-145) Potassium Level 3.1 mmol/L (3.5-5.1) 3.4 mmol/L (3.5-5.1) 4.5 mmol/L (3.5-5.1) Chloride Level 107 mmol/L (98-107) 109 mmol/L (98-107) 112 mmol/L (98-107) Carbon Dioxide Level 25 mmol/L (21-32) 22 mmol/L (21-32) 19 mmol/L (21-32) Anion Gap 10 (6-14) 12 (6-14) 12 (6-14) Blood Urea Nitrogen 14 mg/dL (8-26) 27 mg/dL (8-26) 55 mg/dL (8-26) Creatinine 0.7 mg/dL (0.7-1.3) 0.9 mg/dL (0.7-1.3) 1.4 mg/dL (0.7-1.3) Estimated GFR (Cockcroft-Gault) 116.2 87.0 52.2 Glucose Level 129 mg/dL (70-99) 158 mg/dL (70-99) 186 mg/dL (70-99) Calcium Level 8.3 mg/dL (8.5-10.1) 8.2 mg/dL (8.5-10.1) 8.0 mg/dL (8.5-10.1) White Blood Count 17.8 x10^3/uL (4.0-11.0) 18.0 x10^3/uL (4.0-11.0) Red Blood Count 3.97 x10^6/uL (4.30-5.70) 2.94 x10^6/uL (4.30-5.70) Hemoglobin 10.1 g/dL (13.0-17.5) 7.5 g/dL (13.0-17.5) Hematocrit 31.6 % (39.0-53.0) 23.8 % (39.0-53.0) Mean Corpuscular Volume 80 fL (79-100) 81 fL (79-100) Mean Corpuscular Hemoglobin 26 pg (25-35) 26 pg (25-35) Mean Corpuscular Hemoglobin Concent 32 g/dL (31-37) 32 g/dL (31-37) Red Cell Distribution Width 21.1 % (11.5-14.5) 21.1 % (11.5-14.5) Platelet Count 507 x10^3/uL (140-400) 443 x10^3/uL (140-400) Neutrophils (%) (Auto) 83 % (31-73) Lymphocytes (%) (Auto) 6 % (24-48) Monocytes (%) (Auto) 9 % (0-9) Eosinophils (%) (Auto) 1 % (0-3) Basophils (%) (Auto) 1 % (0-3) Neutrophils # (Auto) 14.8 x10^3/uL (1.8-7.7) Lymphocytes # (Auto) 1.1 x10^3/uL (1.0-4.8) Monocytes # (Auto) 1.7 x10^3/uL (0.0-1.1) Eosinophils # (Auto) 0.1 x10^3/uL (0.0-0.7) Basophils # (Auto) 0.2 x10^3/uL (0.0-0.2) Prothrombin Time 34.5 SEC (11.7-14.0) 43.2 SEC (11.7-14.0) Prothromb Time International Ratio 3.4 (0.8-1.1) 4.5 (0.8-1.1) Lactic Acid Level 2.4 mmol/L (0.4-2.0) Troponin I Quantitative 0.031 ng/mL (0.000-0.055) O2 Saturation 98 % (92-99) Arterial Blood pH 7.36 (7.35-7.45) Arterial Blood pCO2 at Patient Temp 18 mmHg (35-46) Arterial Blood pO2 at Patient Temp 126 mmHg (75-108) Arterial Blood HCO3 10 mmol/L (21-28) Arterial Blood Base Excess -14 mmol/L (-3-3) Oxyhemoglobin 96.8 % Methemoglobin 0.5 % (0.0-1.9) Carbon Monoxide, Quantitative 0.5 % (0.0-1.9) FiO2 36 Test 12/24/18 10:45 12/24/18 13:17 12/24/18 13:40 12/24/18 15:05 White Blood Count 16.6 x10^3/uL (4.0-11.0) Red Blood Count 2.79 x10^6/uL (4.30-5.70) Hemoglobin 7.2 g/dL (13.0-17.5) Hematocrit 22.8 % (39.0-53.0) Mean Corpuscular Volume 82 fL (79-100) Mean Corpuscular Hemoglobin 26 pg (25-35) Mean Corpuscular Hemoglobin Concent 31 g/dL (31-37) Red Cell Distribution Width 20.5 % (11.5-14.5) Platelet Count 470 x10^3/uL (140-400) Neutrophils (%) (Auto) 86 % (31-73) Lymphocytes (%) (Auto) 7 % (24-48) Monocytes (%) (Auto) 6 % (0-9) Eosinophils (%) (Auto) 0 % (0-3) Basophils (%) (Auto) 0 % (0-3) Neutrophils # (Auto) 14.3 x10^3/uL (1.8-7.7) Lymphocytes # (Auto) 1.2 x10^3/uL (1.0-4.8) Monocytes # (Auto) 1.1 x10^3/uL (0.0-1.1) Eosinophils # (Auto) 0.0 x10^3/uL (0.0-0.7) Basophils # (Auto) 0.1 x10^3/uL (0.0-0.2) Segmented Neutrophils % 86 % (35-66) Band Neutrophils % 3 % (0-9) Lymphocytes % 7 % (24-48) Monocytes % 4 % (0-10) Platelet Estimate Adequate (ADEQUATE) Anisocytosis Present Sodium Level 142 mmol/L (136-145) Potassium Level 5.0 mmol/L (3.5-5.1) Chloride Level 109 mmol/L (98-107) Carbon Dioxide Level 15 mmol/L (21-32) Anion Gap 18 (6-14) Blood Urea Nitrogen 55 mg/dL (8-26) Creatinine 1.7 mg/dL (0.7-1.3) Estimated GFR (Cockcroft-Gault) 41.8 BUN/Creatinine Ratio 32 (6-20) Glucose Level 237 mg/dL (70-99) Calcium Level 8.1 mg/dL (8.5-10.1) Magnesium Level 1.9 mg/dL (1.8-2.4) Total Bilirubin 0.4 mg/dL (0.2-1.0) Aspartate Amino Transf (AST/SGOT) 21 U/L (15-37) Alanine Aminotransferase (ALT/SGPT) 18 U/L (16-63) Alkaline Phosphatase 32 U/L (46-116) Ammonia 92 mcmol/L (11-34) Total Protein 4.6 g/dL (6.4-8.2) Albumin 2.3 g/dL (3.4-5.0) Albumin/Globulin Ratio 1.0 (1.0-1.7) Procalcitonin 0.64 ng/mL (0.00-0.10) O2 Saturation 98 % (92-99) Arterial Blood pH 7.38 (7.35-7.45) Arterial Blood pCO2 at Patient Temp 21 mmHg (35-46) Arterial Blood pO2 at Patient Temp 120 mmHg (75-108) Arterial Blood HCO3 12 mmol/L (21-28) Arterial Blood Base Excess -12 mmol/L (-3-3) FiO2 40 Glucose (Fingerstick) 157 mg/dL (70-99) Prothrombin Time 34.1 SEC (11.7-14.0) Prothromb Time International Ratio 3.4 (0.8-1.1) Lactic Acid Level 5.2 mmol/L (0.4-2.0) Iron Level 39 ug/dL (65-175) Total Iron Binding Capacity 176 ug/dL (250-450) Iron Saturation 22 % (15-34) Ferritin 786 ng/mL (26-388) Test 12/24/18 19:59 12/24/18 21:00 Urine Collection Type Unknown Urine Color Yellow Urine Clarity Clear Urine pH 5.5 Urine Specific [place] 1.020 Urine Protein 30 mg/dL (NEG-TRACE) Urine Glucose (UA) 250 mg/dL (NEG) Urine Ketones (Stick) Negative mg/dL (NEG) Urine Blood Moderate (NEG) Urine Nitrite Negative (NEG) Urine Bilirubin Negative (NEG) Urine Urobilinogen Dipstick 0.2 mg/dL (0.2 mg/dL) Urine Leukocyte Esterase Negative (NEG) Urine RBC Occ /HPF (0-2) Urine WBC 1-4 /HPF (0-4) Urine Transitional Epithelial Cells Occ /LPF Urine Renal Epithelial Cells Occ /LPF Urine Amorphous Sediment Present /HPF Urine Bacteria 0 /HPF (0-FEW) Urine Hyaline Casts Few /HPF Urine Granular Casts Moderate /HPF Urine Mucus Mod /LPF White Blood Count 12.8 x10^3/uL (4.0-11.0) Red Blood Count 2.39 x10^6/uL (4.30-5.70) Hemoglobin 6.7 g/dL (13.0-17.5) Hematocrit 19.9 % (39.0-53.0) Mean Corpuscular Volume 84 fL (79-100) Mean Corpuscular Hemoglobin 28 pg (25-35) Mean Corpuscular Hemoglobin Concent 34 g/dL (31-37) Red Cell Distribution Width 19.6 % (11.5-14.5) Platelet Count 234 x10^3/uL (140-400) Prothrombin Time 22.7 SEC (11.7-14.0) Prothromb Time International Ratio 2.0 (0.8-1.1) Activated Partial Thromboplast Time 33 SEC (24-38) Fibrinogen 298 mg/dL (200-440) Assessment and Plan Assessmemt and Plan Problems Medical Problems: (1) Alcohol abuse Status: Acute (2) Closed head injury Status: Acute Comment Review of Relevant I have reviewed the following items robert (where applicable) has been applied. Labs Laboratory Tests Test 12/23/18 03:05 12/23/18 23:00 12/24/18 02:05 12/24/18 09:20 White Blood Count 12.0 x10^3/uL (4.0-11.0) 17.8 x10^3/uL (4.0-11.0) 18.0 x10^3/uL (4.0-11.0) Red Blood Count 4.58 x10^6/uL (4.30-5.70) 3.97 x10^6/uL (4.30-5.70) 2.94 x10^6/uL (4.30-5.70) Hemoglobin 11.6 g/dL (13.0-17.5) 10.1 g/dL (13.0-17.5) 7.5 g/dL (13.0-17.5) Hematocrit 36.0 % (39.0-53.0) 31.6 % (39.0-53.0) 23.8 % (39.0-53.0) Mean Corpuscular Volume 79 fL (79-100) 80 fL (79-100) 81 fL (79-100) Mean Corpuscular Hemoglobin 26 pg (25-35) 26 pg (25-35) 26 pg (25-35) Mean Corpuscular Hemoglobin Concent 32 g/dL (31-37) 32 g/dL (31-37) 32 g/dL (31-37) Red Cell Distribution Width 21.1 % (11.5-14.5) 21.1 % (11.5-14.5) 21.1 % (11.5-14.5) Platelet Count 469 x10^3/uL (140-400) 507 x10^3/uL (140-400) 443 x10^3/uL (140-400) Neutrophils (%) (Auto) 83 % (31-73) 83 % (31-73) Lymphocytes (%) (Auto) 8 % (24-48) 6 % (24-48) Monocytes (%) (Auto) 7 % (0-9) 9 % (0-9) Eosinophils (%) (Auto) 1 % (0-3) 1 % (0-3) Basophils (%) (Auto) 1 % (0-3) 1 % (0-3) Neutrophils # (Auto) 9.9 x10^3/uL (1.8-7.7) 14.8 x10^3/uL (1.8-7.7) Lymphocytes # (Auto) 1.0 x10^3/uL (1.0-4.8) 1.1 x10^3/uL (1.0-4.8) Monocytes # (Auto) 0.9 x10^3/uL (0.0-1.1) 1.7 x10^3/uL (0.0-1.1) Eosinophils # (Auto) 0.1 x10^3/uL (0.0-0.7) 0.1 x10^3/uL (0.0-0.7) Basophils # (Auto) 0.1 x10^3/uL (0.0-0.2) 0.2 x10^3/uL (0.0-0.2) Prothrombin Time 28.7 SEC (11.7-14.0) 34.5 SEC (11.7-14.0) 43.2 SEC (11.7-14.0) Prothromb Time International Ratio 2.7 (0.8-1.1) 3.4 (0.8-1.1) 4.5 (0.8-1.1) Sodium Level 147 mmol/L (136-145) 142 mmol/L (136-145) 143 mmol/L (136-145) 143 mmol/L (136-145) Potassium Level 2.8 mmol/L (3.5-5.1) 3.1 mmol/L (3.5-5.1) 3.4 mmol/L (3.5-5.1) 4.5 mmol/L (3.5-5.1) Chloride Level 107 mmol/L (98-107) 107 mmol/L (98-107) 109 mmol/L (98-107) 112 mmol/L (98-107) Carbon Dioxide Level 26 mmol/L (21-32) 25 mmol/L (21-32) 22 mmol/L (21-32) 19 mmol/L (21-32) Anion Gap 14 (6-14) 10 (6-14) 12 (6-14) 12 (6-14) Blood Urea Nitrogen 9 mg/dL (8-26) 14 mg/dL (8-26) 27 mg/dL (8-26) 55 mg/dL (8-26) Creatinine 0.7 mg/dL (0.7-1.3) 0.7 mg/dL (0.7-1.3) 0.9 mg/dL (0.7-1.3) 1.4 mg/dL (0.7-1.3) Estimated GFR (Cockcroft-Gault) 116.2 116.2 87.0 52.2 BUN/Creatinine Ratio 13 (6-20) Glucose Level 108 mg/dL (70-99) 129 mg/dL (70-99) 158 mg/dL (70-99) 186 mg/dL (70-99) Calcium Level 8.8 mg/dL (8.5-10.1) 8.3 mg/dL (8.5-10.1) 8.2 mg/dL (8.5-10.1) 8.0 mg/dL (8.5-10.1) Total Bilirubin 0.4 mg/dL (0.2-1.0) Aspartate Amino Transf (AST/SGOT) 20 U/L (15-37) Alanine Aminotransferase (ALT/SGPT) 19 U/L (16-63) Alkaline Phosphatase 49 U/L (46-116) Total Protein 6.6 g/dL (6.4-8.2) Albumin 3.2 g/dL (3.4-5.0) Albumin/Globulin Ratio 0.9 (1.0-1.7) Procalcitonin < 0.10 ng/mL (0.00-0.10) Lactic Acid Level 2.4 mmol/L (0.4-2.0) Troponin I Quantitative 0.031 ng/mL (0.000-0.055) Test 12/24/18 10:26 12/24/18 10:45 12/24/18 13:17 12/24/18 13:40 O2 Saturation 98 % (92-99) 98 % (92-99) Arterial Blood pH 7.36 (7.35-7.45) 7.38 (7.35-7.45) Arterial Blood pCO2 at Patient Temp 18 mmHg (35-46) 21 mmHg (35-46) Arterial Blood pO2 at Patient Temp 126 mmHg (75-108) 120 mmHg (75-108) Arterial Blood HCO3 10 mmol/L (21-28) 12 mmol/L (21-28) Arterial Blood Base Excess -14 mmol/L (-3-3) -12 mmol/L (-3-3) Oxyhemoglobin 96.8 % Methemoglobin 0.5 % (0.0-1.9) Carbon Monoxide, Quantitative 0.5 % (0.0-1.9) FiO2 36 40 White Blood Count 16.6 x10^3/uL (4.0-11.0) Red Blood Count 2.79 x10^6/uL (4.30-5.70) Hemoglobin 7.2 g/dL (13.0-17.5) Hematocrit 22.8 % (39.0-53.0) Mean Corpuscular Volume 82 fL (79-100) Mean Corpuscular Hemoglobin 26 pg (25-35) Mean Corpuscular Hemoglobin Concent 31 g/dL (31-37) Red Cell Distribution Width 20.5 % (11.5-14.5) Platelet Count 470 x10^3/uL (140-400) Neutrophils (%) (Auto) 86 % (31-73) Lymphocytes (%) (Auto) 7 % (24-48) Monocytes (%) (Auto) 6 % (0-9) Eosinophils (%) (Auto) 0 % (0-3) Basophils (%) (Auto) 0 % (0-3) Neutrophils # (Auto) 14.3 x10^3/uL (1.8-7.7) Lymphocytes # (Auto) 1.2 x10^3/uL (1.0-4.8) Monocytes # (Auto) 1.1 x10^3/uL (0.0-1.1) Eosinophils # (Auto) 0.0 x10^3/uL (0.0-0.7) Basophils # (Auto) 0.1 x10^3/uL (0.0-0.2) Segmented Neutrophils % 86 % (35-66) Band Neutrophils % 3 % (0-9) Lymphocytes % 7 % (24-48) Monocytes % 4 % (0-10) Platelet Estimate Adequate (ADEQUATE) Anisocytosis Present Sodium Level 142 mmol/L (136-145) Potassium Level 5.0 mmol/L (3.5-5.1) Chloride Level 109 mmol/L (98-107) Carbon Dioxide Level 15 mmol/L (21-32) Anion Gap 18 (6-14) Blood Urea Nitrogen 55 mg/dL (8-26) Creatinine 1.7 mg/dL (0.7-1.3) Estimated GFR (Cockcroft-Gault) 41.8 BUN/Creatinine Ratio 32 (6-20) Glucose Level 237 mg/dL (70-99) Calcium Level 8.1 mg/dL (8.5-10.1) Magnesium Level 1.9 mg/dL (1.8-2.4) Total Bilirubin 0.4 mg/dL (0.2-1.0) Aspartate Amino Transf (AST/SGOT) 21 U/L (15-37) Alanine Aminotransferase (ALT/SGPT) 18 U/L (16-63) Alkaline Phosphatase 32 U/L (46-116) Ammonia 92 mcmol/L (11-34) Total Protein 4.6 g/dL (6.4-8.2) Albumin 2.3 g/dL (3.4-5.0) Albumin/Globulin Ratio 1.0 (1.0-1.7) Procalcitonin 0.64 ng/mL (0.00-0.10) Glucose (Fingerstick) 157 mg/dL (70-99) Test 12/24/18 15:05 12/24/18 19:59 12/24/18 21:00 Prothrombin Time 34.1 SEC (11.7-14.0) 22.7 SEC (11.7-14.0) Prothromb Time International Ratio 3.4 (0.8-1.1) 2.0 (0.8-1.1) Lactic Acid Level 5.2 mmol/L (0.4-2.0) Iron Level 39 ug/dL (65-175) Total Iron Binding Capacity 176 ug/dL (250-450) Iron Saturation 22 % (15-34) Ferritin 786 ng/mL (26-388) Urine Collection Type Unknown Urine Color Yellow Urine Clarity Clear Urine pH 5.5 Urine Specific [place] 1.020 Urine Protein 30 mg/dL (NEG-TRACE) Urine Glucose (UA) 250 mg/dL (NEG) Urine Ketones (Stick) Negative mg/dL (NEG) Urine Blood Moderate (NEG) Urine Nitrite Negative (NEG) Urine Bilirubin Negative (NEG) Urine Urobilinogen Dipstick 0.2 mg/dL (0.2 mg/dL) Urine Leukocyte Esterase Negative (NEG) Urine RBC Occ /HPF (0-2) Urine WBC 1-4 /HPF (0-4) Urine Transitional Epithelial Cells Occ /LPF Urine Renal Epithelial Cells Occ /LPF Urine Amorphous Sediment Present /HPF Urine Bacteria 0 /HPF (0-FEW) Urine Hyaline Casts Few /HPF Urine Granular Casts Moderate /HPF Urine Mucus Mod /LPF White Blood Count 12.8 x10^3/uL (4.0-11.0) Red Blood Count 2.39 x10^6/uL (4.30-5.70) Hemoglobin 6.7 g/dL (13.0-17.5) Hematocrit 19.9 % (39.0-53.0) Mean Corpuscular Volume 84 fL (79-100) Mean Corpuscular Hemoglobin 28 pg (25-35) Mean Corpuscular Hemoglobin Concent 34 g/dL (31-37) Red Cell Distribution Width 19.6 % (11.5-14.5) Platelet Count 234 x10^3/uL (140-400) Activated Partial Thromboplast Time 33 SEC (24-38) Fibrinogen 298 mg/dL (200-440) Laboratory Tests Test 12/23/18 23:00 12/24/18 02:05 12/24/18 09:20 12/24/18 10:26 Sodium Level 142 mmol/L (136-145) 143 mmol/L (136-145) 143 mmol/L (136-145) Potassium Level 3.1 mmol/L (3.5-5.1) 3.4 mmol/L (3.5-5.1) 4.5 mmol/L (3.5-5.1) Chloride Level 107 mmol/L (98-107) 109 mmol/L (98-107) 112 mmol/L (98-107) Carbon Dioxide Level 25 mmol/L (21-32) 22 mmol/L (21-32) 19 mmol/L (21-32) Anion Gap 10 (6-14) 12 (6-14) 12 (6-14) Blood Urea Nitrogen 14 mg/dL (8-26) 27 mg/dL (8-26) 55 mg/dL (8-26) Creatinine 0.7 mg/dL (0.7-1.3) 0.9 mg/dL (0.7-1.3) 1.4 mg/dL (0.7-1.3) Estimated GFR (Cockcroft-Gault) 116.2 87.0 52.2 Glucose Level 129 mg/dL (70-99) 158 mg/dL (70-99) 186 mg/dL (70-99) Calcium Level 8.3 mg/dL (8.5-10.1) 8.2 mg/dL (8.5-10.1) 8.0 mg/dL (8.5-10.1) White Blood Count 17.8 x10^3/uL (4.0-11.0) 18.0 x10^3/uL (4.0-11.0) Red Blood Count 3.97 x10^6/uL (4.30-5.70) 2.94 x10^6/uL (4.30-5.70) Hemoglobin 10.1 g/dL (13.0-17.5) 7.5 g/dL (13.0-17.5) Hematocrit 31.6 % (39.0-53.0) 23.8 % (39.0-53.0) Mean Corpuscular Volume 80 fL (79-100) 81 fL (79-100) Mean Corpuscular Hemoglobin 26 pg (25-35) 26 pg (25-35) Mean Corpuscular Hemoglobin Concent 32 g/dL (31-37) 32 g/dL (31-37) Red Cell Distribution Width 21.1 % (11.5-14.5) 21.1 % (11.5-14.5) Platelet Count 507 x10^3/uL (140-400) 443 x10^3/uL (140-400) Neutrophils (%) (Auto) 83 % (31-73) Lymphocytes (%) (Auto) 6 % (24-48) Monocytes (%) (Auto) 9 % (0-9) Eosinophils (%) (Auto) 1 % (0-3) Basophils (%) (Auto) 1 % (0-3) Neutrophils # (Auto) 14.8 x10^3/uL (1.8-7.7) Lymphocytes # (Auto) 1.1 x10^3/uL (1.0-4.8) Monocytes # (Auto) 1.7 x10^3/uL (0.0-1.1) Eosinophils # (Auto) 0.1 x10^3/uL (0.0-0.7) Basophils # (Auto) 0.2 x10^3/uL (0.0-0.2) Prothrombin Time 34.5 SEC (11.7-14.0) 43.2 SEC (11.7-14.0) Prothromb Time International Ratio 3.4 (0.8-1.1) 4.5 (0.8-1.1) Lactic Acid Level 2.4 mmol/L (0.4-2.0) Troponin I Quantitative 0.031 ng/mL (0.000-0.055) O2 Saturation 98 % (92-99) Arterial Blood pH 7.36 (7.35-7.45) Arterial Blood pCO2 at Patient Temp 18 mmHg (35-46) Arterial Blood pO2 at Patient Temp 126 mmHg (75-108) Arterial Blood HCO3 10 mmol/L (21-28) Arterial Blood Base Excess -14 mmol/L (-3-3) Oxyhemoglobin 96.8 % Methemoglobin 0.5 % (0.0-1.9) Carbon Monoxide, Quantitative 0.5 % (0.0-1.9) FiO2 36 Test 12/24/18 10:45 12/24/18 13:17 12/24/18 13:40 10/9/19 15:05 White Blood Count 16.6 x10^3/uL (4.0-11.0) Red Blood Count 2.79 x10^6/uL (4.30-5.70) Hemoglobin 7.2 g/dL (13.0-17.5) Hematocrit 22.8 % (39.0-53.0) Mean Corpuscular Volume 82 fL (79-100) Mean Corpuscular Hemoglobin 26 pg (25-35) Mean Corpuscular Hemoglobin Concent 31 g/dL (31-37) Red Cell Distribution Width 20.5 % (11.5-14.5) Platelet Count 470 x10^3/uL (140-400) Neutrophils (%) (Auto) 86 % (31-73) Lymphocytes (%) (Auto) 7 % (24-48) Monocytes (%) (Auto) 6 % (0-9) Eosinophils (%) (Auto) 0 % (0-3) Basophils (%) (Auto) 0 % (0-3) Neutrophils # (Auto) 14.3 x10^3/uL (1.8-7.7) Lymphocytes # (Auto) 1.2 x10^3/uL (1.0-4.8) Monocytes # (Auto) 1.1 x10^3/uL (0.0-1.1) Eosinophils # (Auto) 0.0 x10^3/uL (0.0-0.7) Basophils # (Auto) 0.1 x10^3/uL (0.0-0.2) Segmented Neutrophils % 86 % (35-66) Band Neutrophils % 3 % (0-9) Lymphocytes % 7 % (24-48) Monocytes % 4 % (0-10) Platelet Estimate Adequate (ADEQUATE) Anisocytosis Present Sodium Level 142 mmol/L (136-145) Potassium Level 5.0 mmol/L (3.5-5.1) Chloride Level 109 mmol/L (98-107) Carbon Dioxide Level 15 mmol/L (21-32) Anion Gap 18 (6-14) Blood Urea Nitrogen 55 mg/dL (8-26) Creatinine 1.7 mg/dL (0.7-1.3) Estimated GFR (Cockcroft-Gault) 41.8 BUN/Creatinine Ratio 32 (6-20) Glucose Level 237 mg/dL (70-99) Calcium Level 8.1 mg/dL (8.5-10.1) Magnesium Level 1.9 mg/dL (1.8-2.4) Total Bilirubin 0.4 mg/dL (0.2-1.0) Aspartate Amino Transf (AST/SGOT) 21 U/L (15-37) Alanine Aminotransferase (ALT/SGPT) 18 U/L (16-63) Alkaline Phosphatase 32 U/L (46-116) Ammonia 92 mcmol/L (11-34) Total Protein 4.6 g/dL (6.4-8.2) Albumin 2.3 g/dL (3.4-5.0) Albumin/Globulin Ratio 1.0 (1.0-1.7) Procalcitonin 0.64 ng/mL (0.00-0.10) O2 Saturation 98 % (92-99) Arterial Blood pH 7.38 (7.35-7.45) Arterial Blood pCO2 at Patient Temp 21 mmHg (35-46) Arterial Blood pO2 at Patient Temp 120 mmHg (75-108) Arterial Blood HCO3 12 mmol/L (21-28) Arterial Blood Base Excess -12 mmol/L (-3-3) FiO2 40 Glucose (Fingerstick) 157 mg/dL (70-99) Prothrombin Time 34.1 SEC (11.7-14.0) Prothromb Time International Ratio 3.4 (0.8-1.1) Lactic Acid Level 5.2 mmol/L (0.4-2.0) Iron Level 39 ug/dL (65-175) Total Iron Binding Capacity 176 ug/dL (250-450) Iron Saturation 22 % (15-34) Ferritin 786 ng/mL (26-388) Test 12/24/18 19:59 12/24/18 21:00 Urine Collection Type Unknown Urine Color Yellow Urine Clarity Clear Urine pH 5.5 Urine Specific [place] 1.020 Urine Protein 30 mg/dL (NEG-TRACE) Urine Glucose (UA) 250 mg/dL (NEG) Urine Ketones (Stick) Negative mg/dL (NEG) Urine Blood Moderate (NEG) Urine Nitrite Negative (NEG) Urine Bilirubin Negative (NEG) Urine Urobilinogen Dipstick 0.2 mg/dL (0.2 mg/dL) Urine Leukocyte Esterase Negative (NEG) Urine RBC Occ /HPF (0-2) Urine WBC 1-4 /HPF (0-4) Urine Transitional Epithelial Cells Occ /LPF Urine Renal Epithelial Cells Occ /LPF Urine Amorphous Sediment Present /HPF Urine Bacteria 0 /HPF (0-FEW) Urine Hyaline Casts Few /HPF Urine Granular Casts Moderate /HPF Urine Mucus Mod /LPF White Blood Count 12.8 x10^3/uL (4.0-11.0) Red Blood Count 2.39 x10^6/uL (4.30-5.70) Hemoglobin 6.7 g/dL (13.0-17.5) Hematocrit 19.9 % (39.0-53.0) Mean Corpuscular Volume 84 fL (79-100) Mean Corpuscular Hemoglobin 28 pg (25-35) Mean Corpuscular Hemoglobin Concent 34 g/dL (31-37) Red Cell Distribution Width 19.6 % (11.5-14.5) Platelet Count 234 x10^3/uL (140-400) Prothrombin Time 22.7 SEC (11.7-14.0) Prothromb Time International Ratio 2.0 (0.8-1.1) Activated Partial Thromboplast Time 33 SEC (24-38) Fibrinogen 298 mg/dL (200-440) Microbiology 12/20/18 Blood Culture - Preliminary, Resulted NO GROWTH AFTER 4 DAYS 12/20/18 Urine Culture - Final, Complete 12/20/18 Urine Culture Result 1 (AMARA) - Final, Complete Medications Current Medications Fentanyl Citrate (Fentanyl 2ml Vial) 50 mcg 1X ONCE IV Last administered on 12/10/18at 20:03; Start 12/10/18 at 19:15; Stop 12/10/18 at 19:16; Status DC Iohexol (Omnipaque 300 Mg/ml) 75 ml 1X ONCE IV Last administered on 12/10/18at 19:43; Start 12/10/18 at 19:15; Stop 12/10/18 at 19:16; Status DC Sodium Chloride 1,000 ml @ 1,000 mls/hr 1X ONCE IV Last administered on 12/10/18at 19:45; Start 12/10/18 at 19:45; Stop 12/10/18 at 20:44; Status DC Morphine Sulfate (Morphine Sulfate) 2 mg PRN Q2HR PRN IV PAIN Last administered on 12/11/18at 12:03; Start 12/10/18 at 20:15; Stop 12/11/18 at 20:14; Status DC Sodium Chloride 1,000 ml @ 100 mls/hr Q10H IV Last administered on 12/11/18at 08:10; Start 12/10/18 at 20:07; Stop 12/11/18 at 12:21; Status DC Diphtheria/ Tetanus/Acell Pertussis (Boostrix) 0.5 ml ONCE ONCE VAX IM Last administered on 12/10/18at 21:07; Start 12/10/18 at 20:15; Stop 12/10/18 at 20:16; Status DC Ondansetron HCl (Zofran) 4 mg PRN Q6HRS PRN IV NAUSEA/VOMITING 1ST CHOICE Last administered on 12/21/18 03:27; Start 12/11/18 at 05:30 Multivitamins (Thera M Plus) 1 tab DAILY PO Last administered on 12/12/18 08:14; Start 12/11/18 at 09:00; Stop 12/13/18 at 11:25; Status DC Folic Acid (Folic Acid) 1 mg DAILY PO Last administered on 12/12/18 08:14; Start 12/11/18 at 09:00; Stop 12/13/18 at 11:25; Status DC Chlordiazepoxide (Librium) 50 mg PRN Q1HR PRN PO For CIWA 8-14 2ND CHOICE Last administered on 12/18/18 18:03; Start 12/11/18 at 05:30 Chlordiazepoxide (Librium) 100 mg PRN Q1HR PRN PO For CIWA 15+ 2ND CHOICE Last administered on 12/13/18at 01:11; Start 12/11/18 at 05:30 Lorazepam (Ativan) 4 mg PRN Q1HR PRN PO For CIWA 8-14 Last administered on 12/13/18at 02:48; Start 12/11/18 at 05:30 Lorazepam (Ativan) 8 mg PRN Q1HR PRN PO For CIWA 15 or greater; Start 12/11/18 at 05:30 Lorazepam (Ativan Inj) 2 mg PRN Q1HR PRN IV For CIWA 8-14 Last administered on 12/22/18 05:27; Start 12/11/18 at 05:30 Lorazepam (Ativan Inj) 4 mg PRN Q1HR PRN IV For CIWA 15 or greater Last administered on 12/24/18 02:18; Start 12/11/18 at 05:30 Haloperidol Lactate (Haldol Inj) 5 mg PRN Q4HRS PRN IVP [place] lucinatns,Confusn,Delirium Last administered on 12/19/18 06:04; Start 12/11/18 at 05:30 Diphenhydramine HCl (Benadryl) 25 mg PRN Q15MIN PRN IVP EPS symptoms 2'Haldol admin Last administered on 12/18/18at 03:44; Start 12/11/18 at 05:30 Clonidine HCl (Catapres) 0.1 mg PRN Q1HR PRN PO SBP > 180 or DBP > 100, MRX3; Start 12/11/18 at 05:30 Sodium Chloride 1,000 ml @ 60 mls/hr [id number] IV Last administered on 12/21/18 07:26; Start 12/11/18 at 13:00; Stop 12/22/18 at 14:53; Status DC Sodium Chloride 150 ml @ 50 mls/hr 1X ONCE IV Last administered on 12/11/18at 13:48; Start 12/11/18 at 13:00; Stop 12/11/18 at 15:59; Status DC Lisinopril (Prinivil) 20 mg DAILY PO Last administered on 12/19/18 08:00; Start 12/11/18 at 14:00; Stop 12/21/18 at 15:19; Status DC Oxycodone/ Acetaminophen (Percocet 7.5/ 325) 1 tab PRN Q6HRS PRN PO MODERATE TO SEVERE PAIN Last administered on 12/19/18 06:19; Start 12/11/18 at 13:30 Calcium Carbonate/ Glycine (Oscal) 500 mg TIDAFTMEAL PO Last administered on 12/19/18 17:22; Start 12/12/18 at 13:00 Ziprasidone (Geodon Im) 20 mg 1X ONCE IM ; Start 12/13/18 at 05:00; Stop 12/13/18 at 18:51; Status DC Lorazepam 100 mg/ Sodium Chloride 100 ml @ 2 mls/hr CONT PRN IV SEDATION Last administered on 12/13/18at 19:56; Start 12/13/18 at 07:00; Stop 12/18/18 at 16:33; Status DC Olanzapine (ZyPREXA IM) 10 mg PRN Q8HRS PRN IM AGITATION Last administered on 12/19/18at 00:05; Start 12/13/18 at 08:30 Olanzapine (ZyPREXA IM) 10 mg STK-MED ONCE IM ; Start 12/13/18 at 08:37; Stop 12/13/18 at 08:38; Status DC Fentanyl Citrate (Fentanyl 2ml Vial) 75 mcg 1X ONCE IV ; Start 12/13/18 at 09:45; Stop 12/13/18 at 19:20; Status DC Fentanyl Citrate (Fentanyl 2ml Vial) 100 mcg STK-MED ONCE .ROUTE ; Start 12/13/18 at 09:47; Stop 12/13/18 at 09:48; Status DC Fentanyl Citrate (Fentanyl 2ml Vial) 75 mcg PRN Q30MIN PRN IV PAIN Last administered on 12/22/18at 01:39; Start 12/13/18 at 10:00 Multivitamins 10 ml/Thiamine HCl 100 mg/Folic Acid 1 mg/Sodium Chloride 1,011.2 ml @ 100 mls/ hr DAILY IV Last administered on 12/18/18at 08:55; Start 12/14/18 at 12:00; Stop 12/18/18 at 19:07; Status DC Enoxaparin Sodium (Lovenox 80mg Syringe) 80 mg Q12HR SQ Last administered on 12/21/18at 07:50; Start 12/13/18 at 14:30; Stop 12/21/18 at 12:56; Status DC Warfarin Sodium (Coumadin Per Pharmacy) 1 each PRN DAILY PRN MC SEE COMMENTS Last administered on 12/24/18at 11:27; Start 12/13/18 at 14:15; Stop 12/24/18 at 16:10; Status DC Warfarin Sodium (Coumadin) 7.5 mg 1X WARF ONCE PO ; Start 12/13/18 at 16:00; Stop 12/13/18 at 16:01; Status DC Nicotine (Nicoderm Cq 21mg) 1 patch DAILY TD Last administered on 12/23/18at 08:34; Start 12/14/18 at 09:00 Dexmedetomidine HCl 400 mcg/ Sodium Chloride 100 ml @ 0 mls/hr CONT PRN IV PER PROTOCOL Last administered on 12/18/18at 00:12; Start 12/14/18 at 01:45; Stop 12/18/18 at 16:33; Status DC Sodium Chloride 500 ml @ 500 mls/hr 1X PRN PRN IV SEE COMMENTS; Start 12/14/18 at 01:45; Stop 12/20/18 at 11:56; Status DC Atropine Sulfate (ATROPINE 0.5mg SYRINGE) 0.5 mg PRN Q5MIN PRN IV SEE COMMENTS; Start 12/14/18 at 01:45; Stop 12/20/18 at 11:55; Status DC Nicotine (Nicoderm Cq 21mg) 1 patch STK-MED ONCE TD ; Start 12/14/18 at 01:57; Stop 12/14/18 at 01:57; Status DC Lorazepam (Ativan) 1 mg BID PO Last administered on 12/19/18at 08:00; Start at 09:00 Warfarin Sodium (Coumadin) 5 mg DAILY16 PO ; Start 12/14/18 at 16:00; Stop 12/14/18 at 09:21; Status DC Warfarin Sodium (Coumadin) 7.5 mg 1X WARF ONCE PO ; Start 12/14/18 at 16:00; Stop 12/14/18 at 16:01; Status DC Enalaprilat (Vasotec Inj) 1.25 mg Q8HRS IVP Last administered on 12/23/18at 22:16; Start 12/14/18 at 15:00 Nicardipine HCl 50 mg/Sodium Chloride 250 ml @ 25 mls/hr CONT PRN IV SEE I/O RECORD Last administered on 12/16/18at 09:58; Start 12/14/18 at 17:45; Stop 12/18/18 at 16:33; Status DC Nicardipine HCl 50 mg/Sodium Chloride 250 ml @ 25 mls/hr CONT PRN IV SEE I/O RECORD; Start 12/14/18 at 18:00; Status UNV Warfarin Sodium (Coumadin) 7.5 mg 1X WARF ONCE PO ; Start 12/15/18 at 16:00; Stop 12/15/18 at 16:01; Status DC Warfarin Sodium (Coumadin - No Dose Today) 1 each 1X WARF ONCE MC ; Start 12/16/18 at 16:00; Stop 12/16/18 at 16:01; Status DC Warfarin Sodium (Coumadin) 7.5 mg 1X WARF ONCE PO Last administered on 12/18/18at 08:54; Start 12/17/18 at 16:00; Stop 12/17/18 at 16:01; Status DC Ceftriaxone Sodium (Rocephin) 1 gm Q24H IVP Last administered on 12/20/18at 12:08; Start 12/18/18 at 12:30; Stop 12/20/18 at 15:14; Status DC Metoprolol Tartrate (Lopressor) 25 mg BID PO Last administered on 12/19/18 08:01; Start 12/18/18 at 12:30 Acetaminophen/ Codeine Phosphate (Tylenol #3) 1 tab PRN Q6HRS PRN PO PAIN MILD TO MOD; Start 12/18/18 at 12:00; Stop 12/18/18 at 12:55; Status DC Lactobacillus Rhamnosus (Culturelle) 1 cap BID PO Last administered on 12/19/18at 08:00; Start 12/18/18 at 21:00; Stop 12/24/18 at 11:17; Status DC Acetaminophen (Tylenol) 650 mg PRN Q6HRS PRN PO FEVER Last administered on 12/19/18 17:23; Start 12/18/18 at 13:00 Warfarin Sodium (Coumadin) 7.5 mg 1X WARF ONCE PO Last administered on 12/18/18 18:03; Start 12/18/18 at 16:00; Stop 12/18/18 at 16:11; Status DC Albuterol/ Ipratropium (Duoneb) 3 ml 1X ONCE NEB Last administered on 12/19/18at 07:15; Start 12/19/18 at 07:15; Stop 12/19/18 at 07:16; Status DC Ziprasidone (Geodon Im) 10 mg 1X ONCE IM Last administered on 12/19/18at 07:42; Start 12/19/18 at 07:15; Stop 12/19/18 at 07:16; Status DC Warfarin Sodium (Coumadin) 7.5 mg 1X WARF ONCE PO Last administered on 12/19/18 17:23; Start 12/19/18 at 16:00; Stop 12/19/18 at 16:01; Status DC Potassium Chloride (Klor-Con) 40 meq 1X ONCE PO Last administered on 12/19/18at 16:12; Start 12/19/18 at 14:00; Stop 12/19/18 at 14:01; Status DC Potassium Chloride (Klor-Con) 20 meq DAILYWBKFT PO ; Start 12/20/18 at 08:00 Doxycycline Hyclate (Vibra-Tab) 100 mg BID PO Last administered on 12/19/18at 17:22; Start 12/19/18 at 17:30; Stop 12/19/18 at 17:57; Status DC Doxycycline Hyclate 100 mg/ Dextrose 100 ml @ 50 mls/hr Q12HR IV Last administered on 12/23/18at 22:17; Start 12/19/18 at 21:00; Stop 12/24/18 at 10:1 5; Status DC Metoprolol Tartrate (Lopressor Vial) 5 mg PRN Q6HRS PRN IVP HYPERTENSION Last administered on 12/24/18at 07:22; Start 12/19/18 at 18:00 Scopolamine (Transderm-Scop) 1 patch Q3DAYS TD Last administered on 12/23/18at 08:33; Start 12/20/18 at 09:00 Potassium Chloride/Water 100 ml @ 100 mls/hr Q1H IV Last administered on 12/20/18at 10:36; Start 12/20/18 at 06:00; Stop 12/20/18 at 09:59; Status DC Potassium Chloride (Klor-Con) 40 meq 1X ONCE PO ; Start 12/20/18 at 08:00; Stop 12/20/18 at 08:01; Status DC Acetaminophen (Tylenol Supp) 650 mg PRN Q6HRS PRN VA MILD PAIN / TEMP Last administered on 12/20/18at 14:59; Start 12/20/18 at 07:15 Warfarin Sodium (Coumadin) 7.5 mg 1X WARF ONCE PO ; Start 12/20/18 at 16:00; Stop 12/20/18 at 16:01; Status DC Hydralazine HCl (Apresoline Inj) 10 mg PRN Q4HRS PRN IVP ELEVATED BP, SEE COMMENTS Last administered on 12/22/18at 11:07; Start 12/20/18 at 14:30 Potassium Chloride (Klor-Con) 40 meq 1X ONCE PO ; Start 12/20/18 at 14:30; Stop 12/20/18 at 14:41; Status DC Potassium Chloride (Klor-Con) 20 meq DAILYWBKFT PO ; Start 12/21/18 at 08:00 Albuterol/ Ipratropium (Duoneb) 3 ml RTQID NEB Last administered on 12/24/18at 19:47; Start 12/20/18 at 16:00 Piperacillin Sod/ Tazobactam Sod 3.375 gm/Sodium Chloride 50 ml @ 100 mls/hr Q6HRS IV Last administered on 12/24/18at 05:09; Start 12/20/18 at 16:00; Stop 12/24/18 at 10:15; Status DC Amino Acids/ Glycerin/ Electrolytes 1,000 ml @ 75 mls/hr [id number] IV Last administered on 12/23/18at 22:17; Start 12/21/18 at 13:00 Warfarin Sodium (Coumadin) 1 mg 1X WARF ONCE PO ; Start 12/21/18 at 16:00; Stop 12/21/18 at 16:01; Status DC Sodium Chloride 1,000 ml @ 75 mls/hr 1X ONCE IV Last administered on 12/21/18at 13:49; Start 12/21/18 at 13:15; Stop 12/22/18 at 02:34; Status DC Potassium Chloride/Water 100 ml @ 100 mls/hr Q1H IV Last administered on 12/22/18at 11:03; Start 12/22/18 at 06:00; Stop 12/22/18 at 09:59; Status DC Sodium Chloride 1,000 ml @ 75 mls/hr 1X ONCE IV Last administered on 12/22/18at 14:49; Start 12/22/18 at 14:30; Stop 12/23/18 at 03:49; Status DC Potassium Chloride 20 meq/ Sodium Chloride 1,010 ml @ 75 mls/hr 1X ONCE IV Last administered on 12/22/18at 17:51; Start 12/22/18 at 16:00; Stop 12/23/18 at 05:27; Status DC Hydralazine HCl (Apresoline Inj) 10 mg Q6HRS IVP Last administered on 12/24/18at 01:12; Start 12/22/18 at 18:00 Potassium Chloride/Water 100 ml @ 100 mls/hr Q1H IV Last administered on 12/23/18at 14:01; Start 12/23/18 at 06:00; Stop 12/23/18 at 09:59; Status DC Potassium Chloride/Water 50 ml @ 50 mls/hr Q1H IV ; Start 12/23/18 at 11:15; Stop 12/23/18 at 13:14; Status UNV Potassium Chloride/Water 100 ml @ 100 mls/hr Q1H IV ; Start 12/23/18 at 11:30; Stop 12/23/18 at 13:04; Status DC Warfarin Sodium (Coumadin - No Dose Today) 1 each 1X WARF ONCE MC Last administered on 12/23/18at 16:00; Start 12/23/18 at 16:00; Stop 12/23/18 at 16:01; Status DC Pantoprazole Sodium (PROTONIX VIAL for IV PUSH) 40 mg DAILYAC IVP Last administered on 12/23/18 15:21; Start 12/23/18 at 15:00; Stop 12/24/18 at 10:43; Status DC Cefepime HCl (Maxipime) 2 gm Q8HRS IVP Last administered on 12/24/18 21:56; Start 12/24/18 at 10:00 Metronidazole 100 ml @ 100 mls/hr Q8HRS IV Last administered on 12/24/18at 21:56; Start 12/24/18 at 10:00 Daptomycin 460 mg/ Sodium Chloride 50 ml @ 100 mls/hr Q24H IV Last administered on 12/24/18at 12:07; Start 12/24/18 at 11:00 Micafungin Sodium 100 mg/Dextrose 100 ml @ 100 mls/hr Q24H IV Last administered on 12/24/18 18:42; Start 12/24/18 at 12:00 Pantoprazole Sodium 80 mg/ Sodium Chloride 100 ml @ 10 mls/hr Q10H IV Last administered on 12/24/18 20:21; Start 12/24/18 at 11:00 Lorazepam (Ativan) 1 mg PRN Q6HRS PRN PO ANXIETY / AGITATION 1ST CHOICE; Start 12/24/18 at 10:45 Ondansetron HCl (Zofran) 4 mg PRN Q6HRS PRN IV NAUSEA/VOMITING; Start 12/24/18 at 10:45; Stop 12/24/18 at 10:52; Status DC Info ([facility] Electrolyte Protocol) 1 ea DAILY MC ; Start 12/25/18 at 09:00 Sodium Chloride (Normal Saline Flush) 3 ml QSHIFT PRN IV AFTER MEDS AND BLOOD DRAWS; Start 12/24/18 at 10:45 Sodium Chloride 1,000 ml @ 2,130 mls/hr Q29M IV Last administered on 12/24/18at 12:13; Start 12/24/18 at 10:50; Stop 12/24/18 at 11:50; Status DC Sodium Chloride 500 ml @ 1,000 mls/hr PRN Q30MIN PRN IV SEE COMMENTS; Start 12/24/18 at 11:00 Norepinephrine Bitartrate 250 ml @ 0 mls/hr CONT PRN IV SEE COMMENTS Last administered on 12/24/18at 20:22; Start 12/24/18 at 11:00 Dobutamine HCl/ Dextrose 250 ml @ 0 mls/hr CONT PRN IV SEE COMMENTS; Start 12/24/18 at 11:00 Sodium Bicarbonate (Sodium Bicarb Adult 8.4% Syr) 100 meq 1X ONCE IV Last administered on 12/24/18at 11:16; Start 12/24/18 at 11:15; Stop 12/24/18 at 11:16; Status DC Phytonadione (Vitamin K Ampule) 5 mg 1X ONCE SQ Last administered on 12/24/18at 12:24; Start 12/24/18 at 11:15; Stop 12/24/18 at 11:22; Status DC Succinylcholine Chloride (Anectine) 200 mg STK-MED ONCE .ROUTE ; Start 12/24/18 at 11:20; Stop 12/24/18 at 11:21; Status DC Midazolam HCl (Versed) 5 mg STK-MED ONCE .ROUTE ; Start 12/24/18 at 11:21; Stop 12/24/18 at 11:21; Status DC Warfarin Sodium (Coumadin - No Dose Today) 1 each 1X WARF ONCE MC ; Start 12/24/18 at 16:00; Stop 12/24/18 at 16:01; Status DC Atropine Sulfate (ATROPINE 1mg SYRINGE) 1 mg STK-MED ONCE .ROUTE ; Start 12/24/18 at 11:30; Stop 12/24/18 at 11:30; Status DC Epinephrine HCl (Adrenalin) 1 mg STK-MED ONCE .ROUTE ; Start 12/24/18 at 11:30; Stop 12/24/18 at 11:30; Status DC Succinylcholine Chloride (Anectine) 60 mg 1X ONCE IV Last administered on 12/24/18at 12:04; Start 12/24/18 at 11:45; Stop 12/24/18 at 11:46; Status DC Midazolam HCl (Versed) 2 mg 1X ONCE IV Last administered on 12/24/18at 11:30; Start 12/24/18 at 11:45; Stop 12/24/18 at 11:46; Status DC Epinephrine HCl (EPINEPHrine SYRINGE) 1 mg 1X ONCE IV ; Start 12/24/18 at 11:45; Stop 12/24/18 at 11:46; Status DC Sodium Chloride 1,000 ml @ 1,000 mls/hr 1X ONCE IV ; Start 12/24/18 at 11:45; Stop 12/24/18 at 12:44; Status DC Midazolam HCl 100 ml @ 5 mls/hr CONT PRN IV SEE I/O RECORD Last administered on 12/24/18at 21:58; Start 12/24/18 at 12:00 Fentanyl Citrate 30 ml @ 0 mls/hr CONT PRN IV SEE PROTOCOL Last administered on 12/24/18at 18:49; Start 12/24/18 at 12:00 Midazolam HCl (Versed) 2 mg 1X ONCE IV ; Start 12/24/18 at 12:15; Stop 12/24/18 at 12:16; Status DC Metoclopramide HCl (Reglan Vial) 10 mg 1X ONCE IVP Last administered on 12/24/18at 15:00; Start 12/24/18 at 12:45; Stop 12/24/18 at 12:46; Status DC Vasopressin 40 unit/Dextrose 102 ml @ 6 mls/hr CONT PRN IV SEE I/O RECORD Last administered on 12/24/18at 13:17; Start 12/24/18 at 13:00 Albumin Human 500 ml @ As Directed STK-MED ONCE IV ; Start 12/24/18 at 14:37; Stop 12/24/18 at 14:37; Status DC Albumin Human 500 ml @ 125 mls/hr 1X ONCE IV Last administered on 12/24/18at 14:39; Start 12/24/18 at 14:45; Stop 12/24/18 at 18:44; Status DC Digoxin (Lanoxin) 500 mcg 1X ONCE IV Last administered on 12/24/18at 15:30; Start 12/24/18 at 15:30; Stop 12/24/18 at 15:31; Status DC Digoxin (Lanoxin) 500 mcg STK-MED ONCE .ROUTE ; Start 12/24/18 at 15:07; Stop 12/24/18 at 15:08; Status DC Phytonadione (Vitamin K Ampule) 10 mg 1X ONCE SQ Last administered on 12/24/18at 17:36; Start 12/24/18 at 15:45; Stop 12/24/18 at 15:49; Status DC Amiodarone HCl 150 mg/Dextrose 103 ml @ 618 mls/hr 1X ONCE IV Last administered on 12/24/18at 17:09; Start 12/24/18 at 16:00; Stop 12/24/18 at 16:09; Status DC Amiodarone HCl 900 mg/Dextrose 518 ml @ 0 mls/hr CONT PRN IV SEE I/O RECORD Last administered on 12/24/18at 17:55; Start 12/24/18 at 16:00; Stop 12/24/18 at 17:55; Status DC Phytonadione (Vitamin K Ampule) 10 mg 1X ONCE SQ ; Start 12/24/18 at 17:00; Stop 12/24/18 at 17:01; Status DC Active Scripts Active Reported Lorazepam 1 Mg Tablet 1 Tab PO BID Percocet 7.5-325 Mg Tablet (Oxycodone/Acetaminophen) 1 Each Tablet 1 Tab PO PRN Q6HRS PRN Coumadin (Warfarin Sodium) 5 Mg Tablet 1 Tab PO DAILY Lisinopril 20 Mg Tablet 1 Tab PO DAILY Vitals/I & O Vital Sign - Last 24 Hours 12/23/18 12/24/18 12/24/18 12/24/18 23:53 01:12 05:26 06:25 Temp 98.3 98.1 98.3 98.1 Pulse 121 121 163 146 Resp 20 37 36 B/P (MAP) 150/90 (110) 150/90 102/66 (78) 95/59 (71) Pulse Ox 97 98 O2 Delivery Nasal Cannula Nasal Cannula Nasal Cannula O2 Flow Rate 2.0 2.0 2.0 12/24/18 12/24/18 12/24/18 12/24/18 07:00 07:22 08:15 08:20 Temp 98.7 98.7 Pulse 122 150 Resp 38 B/P (MAP) 100/54 (69) 104/67 Pulse Ox 98 100 O2 Delivery Nasal Cannula Nasal Cannula Nasal Cannula O2 Flow Rate 2.0 2.0 2.0 12/24/18 12/24/18 12/24/18 12/24/18 11:00 11:30 11:45 11:47 Temp 99.0 99.4 99.0 99.4 Pulse 144 134 130 Resp 42 60 35 B/P (MAP) 104/53 (70) 70/48 (55) 66/38 (47) Pulse Ox 96 86 100 100 O2 Delivery Nasal Cannula Nasal Cannula Nasal Cannula Ventilator O2 Flow Rate 2.0 2.0 2.0 12/24/18 12/24/18 12/24/18 12/24/18 12:00 12:00 12:15 12:25 Pulse 124 126 126 B/P (MAP) 102/45 (64) Pulse Ox 100 100 100 O2 Delivery Mechanical Ventilator Ventilator Ventilator Ventilator 12/24/18 12/24/18 12/24/18 12/24/18 12:38 12:51 13:42 13:46 Temp 99.5 98.7 99.5 98.7 Pulse 135 144 133 Resp 31 30 B/P (MAP) 85/51 85/51 (62) 80/53 (62) Pulse Ox 100 99 100 O2 Delivery Ventilator Ventilator Ventilator 12/24/18 12/24/18 12/24/18 12/24/18 14:00 14:00 14:15 14:15 Temp 98.2 98.5 98.2 98.5 Pulse 140 144 141 144 Resp 44 32 B/P (MAP) 85/56 90/52 Pulse Ox 100 100 O2 Delivery Ventilator Ventilator 12/24/18 12/24/18 12/24/18 12/24/18 14:30 14:45 15:00 15:15 Pulse 136 132 124 168 B/P (MAP) 80/56 (64) 102/62 (75) 108/53 (71) 105/67 (80) Pulse Ox 100 100 100 100 O2 Delivery Ventilator Ventilator Ventilator Ventilator 12/24/18 12/24/18 12/24/18 12/24/18 15:30 15:30 16:00 16:00 Temp 98.7 98.7 Pulse 193 166 164 B/P (MAP) 124/98 115/72 (86) 135/71 (92) Pulse Ox 100 100 O2 Delivery Ventilator Ventilator Mechanical Ventilator 12/24/18 12/24/18 12/24/18 12/24/18 16:15 16:15 16:30 16:32 Pulse 166 153 156 B/P (MAP) 110/69 (83) 112/80 (91) 128/87 (101) Pulse Ox 100 100 100 100 O2 Delivery Ventilator Ventilator Ventilator Ventilator 12/24/18 12/24/18 12/24/18 12/24/18 16:45 16:48 17:00 17:09 Temp 99.8 98.8 99.8 98.8 Pulse 130 154 153 Resp 27 B/P (MAP) 146/85 (105) 128/87 136/84 (101) 136/84 Pulse Ox 100 100 O2 Delivery Ventilator Ventilator 12/24/18 12/24/18 12/24/18 12/24/18 17:15 17:30 17:34 17:45 Pulse 174 184 136 B/P (MAP) 145/95 (112) 114/72 (86) 113/74 (87) Pulse Ox 100 100 97 100 O2 Delivery Ventilator Ventilator Ventilator Ventilator 12/24/18 12/24/18 12/24/18 12/24/18 18:00 18:58 19:32 19:47 Temp 100.1 100.0 100.2 100.1 100.0 100.2 Pulse 134 120 121 121 Resp 28 28 28 B/P (MAP) 123/76 (92) 135/71 155/70 155/79 Pulse Ox 100 O2 Delivery Ventilator 12/24/18 12/24/18 12/24/18 12/24/18 19:55 20:15 20:30 21:30 Temp 99.8 100.2 99.8 100.2 Pulse 116 110 Resp 27 28 B/P (MAP) 127/67 130/65 Pulse Ox 99 99 O2 Delivery Ventilator Ventilator 12/24/18 21:30 Temp 99.2 99.2 Pulse 104 Resp 20 B/P (MAP) 127/68 Intake and Output 12/23/18 12/23/18 12/24/18 15:00 23:00 07:00 Output Total 200 ml Balance -200 ml MER DAVIES MD Dec 24, 2018 22:22
[2018-12-25] VITALS (41 sets, daily range): BP systolic 85–154; BP diastolic 51–116
[2018-12-25 00:37] LABS: BASE EXCESS ABG -6 mmol/L (-3-3); HCO3 ABG 17 mmol/L (21-28); PCO2 ABG 25 mmHg (35-46); PO2 ABG 107 mmHg (75-108); SAT O2 ABG 97 % (92-99)
[2018-12-25 00:38] LABS: FIO2 ABG 40
[2018-12-25] MEDS: hydrALAZINE 20 MG/ML VIAL. IVP SCH ×3 (05:29→18:00)
[2018-12-25] MEDS: CEFEPIME HCL IV Push 2 GM VIAL. IVP SCH ×3 (05:50→21:37)
[2018-12-25] MEDS: VASOPRESSIN 40 UNIT in IV DEXTROSE 5% 100ML 100 ML IV PRN ×2 (05:52→19:34)
[2018-12-25 05:56] LABS: BASO # 0.1 x10^3/uL (0.0-0.2); BASO % 1 % (0-3); EOS % 0 % (0-3); HEMATOCRIT 22.9 % (39.0-53.0); HEMOGLOBIN 7.9 g/dL (13.0-17.5); LYMPH # 1.1 x10^3/uL (1.0-4.8); LYMPH % 10 % (24-48); MEAN CORPUSCULAR HEMOGLOBIN 30 pg (25-35); MEAN CORPUSCULAR HGB CONC 35 g/dL (31-37); MEAN CORPUSCULAR VOLUME 87 fL (79-100); MONO # 0.8 x10^3/uL (0.0-1.1); MONO % 8 % (0-9); NEUT # 8.8 x10^3/uL (1.8-7.7); NEUT % 82 % (31-73); PLATELET COUNT 195 x10^3/uL (140-400); RED BLOOD COUNT 2.64 x10^6/uL (4.30-5.70); RED CELL DISTRIBUTION WIDTH 17.5 % (11.5-14.5); WHITE BLOOD COUNT 10.8 x10^3/uL (4.0-11.0)
[2018-12-25 06:11] LABS: PROTHROMBIN TIME PATIENT 19.5 SEC (11.7-14.0)
[2018-12-25 07:07] LABS: ALBUMIN 2.6 g/dL (3.4-5.0); ALBUMIN/GLOBULIN RATIO 1.1 (1.0-1.7); CALCIUM 7.7 mg/dL (8.5-10.1); CREATININE 1.2 mg/dL (0.7-1.3); GFR 62.4; TOTAL BILIRUBIN 0.7 mg/dL (0.2-1.0); TOTAL PROTEIN 4.9 g/dL (6.4-8.2)
--- NOTE | 2018-12-25 07:07 | PDOC ---
Infectious Disease Note Subjective Subjective intubated/sedated ROS ROS Unable to obtain Vital Sign Vital Signs Vital Signs Date Time Temp Pulse Resp B/P (MAP) Pulse Ox O2 Delivery O2 Flow Rate FiO2 12/25/18 06:15 73 100/58 (72) 12/25/18 06:00 22 99 Ventilator 12/25/18 04:00 99.6 99.6 12/24/18 11:45 2.0 Physical Exam PHYSICAL EXAM GENERAL: Intubated and sedated HEENT: Pupils are equally round and reactive. Oropharynx is pink and dry. NECK: Supple. LUNGS: Clear to auscultation. rr = 30 HEART: S1, S2. ABDOMEN: Obese, soft, and nontender with bowel sounds present. Rectal tube : Peng EXTREMITIES: No gross edema or cyanosis. [place] SKIN: Warm to touch. No signs of rash.some healing scraps/echymosis NEUROLOGIC: encephalophic IV: RUE PICC Labs Lab Laboratory Tests Test 12/24/18 09:20 12/24/18 10:26 12/24/18 10:45 12/24/18 13:17 White Blood Count 18.0 x10^3/uL (4.0-11.0) 16.6 x10^3/uL (4.0-11.0) Red Blood Count 2.94 x10^6/uL (4.30-5.70) 2.79 x10^6/uL (4.30-5.70) Hemoglobin 7.5 g/dL (13.0-17.5) 7.2 g/dL (13.0-17.5) Hematocrit 23.8 % (39.0-53.0) 22.8 % (39.0-53.0) Mean Corpuscular Volume 81 fL (79-100) 82 fL (79-100) Mean Corpuscular Hemoglobin 26 pg (25-35) 26 pg (25-35) Mean Corpuscular Hemoglobin Concent 32 g/dL (31-37) 31 g/dL (31-37) Red Cell Distribution Width 21.1 % (11.5-14.5) 20.5 % (11.5-14.5) Platelet Count 443 x10^3/uL (140-400) 470 x10^3/uL (140-400) Prothrombin Time 43.2 SEC (11.7-14.0) Prothromb Time International Ratio 4.5 (0.8-1.1) Sodium Level 143 mmol/L (136-145) 142 mmol/L (136-145) Potassium Level 4.5 mmol/L (3.5-5.1) 5.0 mmol/L (3.5-5.1) Chloride Level 112 mmol/L (98-107) 109 mmol/L (98-107) Carbon Dioxide Level 19 mmol/L (21-32) 15 mmol/L (21-32) Anion Gap 12 (6-14) 18 (6-14) Blood Urea Nitrogen 55 mg/dL (8-26) 55 mg/dL (8-26) Creatinine 1.4 mg/dL (0.7-1.3) 1.7 mg/dL (0.7-1.3) Estimated GFR (Cockcroft-Gault) 52.2 41.8 Glucose Level 186 mg/dL (70-99) 237 mg/dL (70-99) Lactic Acid Level 2.4 mmol/L (0.4-2.0) Calcium Level 8.0 mg/dL (8.5-10.1) 8.1 mg/dL (8.5-10.1) Troponin I Quantitative 0.031 ng/mL (0.000-0.055) O2 Saturation 98 % (92-99) 98 % (92-99) Arterial Blood pH 7.36 (7.35-7.45) 7.38 (7.35-7.45) Arterial Blood pCO2 at Patient Temp 18 mmHg (35-46) 21 mmHg (35-46) Arterial Blood pO2 at Patient Temp 126 mmHg (75-108) 120 mmHg (75-108) Arterial Blood HCO3 10 mmol/L (21-28) 12 mmol/L (21-28) Arterial Blood Base Excess -14 mmol/L (-3-3) -12 mmol/L (-3-3) Oxyhemoglobin 96.8 % Methemoglobin 0.5 % (0.0-1.9) Carbon Monoxide, Quantitative 0.5 % (0.0-1.9) FiO2 36 40 Neutrophils (%) (Auto) 86 % (31-73) Lymphocytes (%) (Auto) 7 % (24-48) Monocytes (%) (Auto) 6 % (0-9) Eosinophils (%) (Auto) 0 % (0-3) Basophils (%) (Auto) 0 % (0-3) Neutrophils # (Auto) 14.3 x10^3/uL (1.8-7.7) Lymphocytes # (Auto) 1.2 x10^3/uL (1.0-4.8) Monocytes # (Auto) 1.1 x10^3/uL (0.0-1.1) Eosinophils # (Auto) 0.0 x10^3/uL (0.0-0.7) Basophils # (Auto) 0.1 x10^3/uL (0.0-0.2) Segmented Neutrophils % 86 % (35-66) Band Neutrophils % 3 % (0-9) Lymphocytes % 7 % (24-48) Monocytes % 4 % (0-10) Platelet Estimate Adequate (ADEQUATE) Anisocytosis Present BUN/Creatinine Ratio 32 (6-20) Magnesium Level 1.9 mg/dL (1.8-2.4) Total Bilirubin 0.4 mg/dL (0.2-1.0) Aspartate Amino Transf (AST/SGOT) 21 U/L (15-37) Alanine Aminotransferase (ALT/SGPT) 18 U/L (16-63) Alkaline Phosphatase 32 U/L (46-116) Ammonia 92 mcmol/L (11-34) Total Protein 4.6 g/dL (6.4-8.2) Albumin 2.3 g/dL (3.4-5.0) Albumin/Globulin Ratio 1.0 (1.0-1.7) Procalcitonin 0.64 ng/mL (0.00-0.10) Test 12/24/18 13:40 12/24/18 15:05 12/24/18 19:50 12/24/18 19:59 Glucose (Fingerstick) 157 mg/dL (70-99) Prothrombin Time 34.1 SEC (11.7-14.0) Prothromb Time International Ratio 3.4 (0.8-1.1) Lactic Acid Level 5.2 mmol/L (0.4-2.0) Iron Level 39 ug/dL (65-175) Total Iron Binding Capacity 176 ug/dL (250-450) Iron Saturation 22 % (15-34) Ferritin 786 ng/mL (26-388) O2 Saturation 97 % (92-99) Arterial Blood pH 7.46 (7.35-7.45) Arterial Blood pCO2 at Patient Temp 25 mmHg (35-46) Arterial Blood pO2 at Patient Temp 107 mmHg (75-108) Arterial Blood HCO3 17 mmol/L (21-28) Arterial Blood Base Excess -6 mmol/L (-3-3) FiO2 40 Urine Collection Type Unknown Urine Color Yellow Urine Clarity Clear Urine pH 5.5 Urine Specific [place] 1.020 Urine Protein 30 mg/dL (NEG-TRACE) Urine Glucose (UA) 250 mg/dL (NEG) Urine Ketones (Stick) Negative mg/dL (NEG) Urine Blood Moderate (NEG) Urine Nitrite Negative (NEG) Urine Bilirubin Negative (NEG) Urine Urobilinogen Dipstick 0.2 mg/dL (0.2 mg/dL) Urine Leukocyte Esterase Negative (NEG) Urine RBC Occ /HPF (0-2) Urine WBC 1-4 /HPF (0-4) Urine Transitional Epithelial Cells Occ /LPF Urine Renal Epithelial Cells Occ /LPF Urine Amorphous Sediment Present /HPF Urine Bacteria 0 /HPF (0-FEW) Urine Hyaline Casts Few /HPF Urine Granular Casts Moderate /HPF Urine Mucus Mod /LPF Test 12/24/18 21:00 12/25/18 05:45 White Blood Count 12.8 x10^3/uL (4.0-11.0) 10.8 x10^3/uL (4.0-11.0) Red Blood Count 2.39 x10^6/uL (4.30-5.70) 2.64 x10^6/uL (4.30-5.70) Hemoglobin 6.7 g/dL (13.0-17.5) 7.9 g/dL (13.0-17.5) Hematocrit 19.9 % (39.0-53.0) 22.9 % (39.0-53.0) Mean Corpuscular Volume 84 fL (79-100) 87 fL (79-100) Mean Corpuscular Hemoglobin 28 pg (25-35) 30 pg (25-35) Mean Corpuscular Hemoglobin Concent 34 g/dL (31-37) 35 g/dL (31-37) Red Cell Distribution Width 19.6 % (11.5-14.5) 17.5 % (11.5-14.5) Platelet Count 234 x10^3/uL (140-400) 195 x10^3/uL (140-400) Prothrombin Time 22.7 SEC (11.7-14.0) 19.5 SEC (11.7-14.0) Prothromb Time International Ratio 2.0 (0.8-1.1) 1.7 (0.8-1.1) Activated Partial Thromboplast Time 33 SEC (24-38) Fibrinogen 298 mg/dL (200-440) Neutrophils (%) (Auto) 82 % (31-73) Lymphocytes (%) (Auto) 10 % (24-48) Monocytes (%) (Auto) 8 % (0-9) Eosinophils (%) (Auto) 0 % (0-3) Basophils (%) (Auto) 1 % (0-3) Neutrophils # (Auto) 8.8 x10^3/uL (1.8-7.7) Lymphocytes # (Auto) 1.1 x10^3/uL (1.0-4.8) Monocytes # (Auto) 0.8 x10^3/uL (0.0-1.1) Eosinophils # (Auto) 0.0 x10^3/uL (0.0-0.7) Basophils # (Auto) 0.1 x10^3/uL (0.0-0.2) Ammonia 13 mcmol/L (11-34) Micro Microbiology 12/20/18 Blood Culture - Preliminary, Resulted NO GROWTH AFTER 1 DAY Objective Assessment UGI bleed s/p EGD 12/24 - Non-variceal bleeding, distal esophagus. Inflammatory/Dieulafoy possible, aggravated by coagulopathy. S/P PRBCs 12/24 Acute Resp failure - intubated 12/24 - blood seen on intubation Afib on Amiodarone Transaminitis - ? reactive vs med vs other Fever ? 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 seizure Coagualopathy - Appreciated Heme eval Valvular disorder - Aortic stenosis s/p mechanical aortic valve CAD Plan Plan of Care Add Lipase this am D/c'd Zosyn/doxy 12/20 - 12/24 F/u repeat Blood cults Cont Cefepime/Flagyl/Dapto/Micafungin 12/24 F/u labs and cults Electrolytes per primary Transaminitis per GI D/w nursing Remains Critically ill ANJU HAMILTON MD Dec 25, 2018 07:07
[2018-12-25] MEDS: PANTOPRAZOLE SODIUM IV DRIP 80 MG in IV NORMAL SALINE 100ML 100 ML IV SCH ×2 (07:29→19:34)
[2018-12-25] MEDS: POTASSIUM CHLORIDE 20 MEQ TABLET.ER. PO SCH ×2 (07:30)
[2018-12-25] MEDS: LORazepam 1 MG TABLET PO SCH ×2 (07:31→21:00)
[2018-12-25] MEDS: IPRATRPIUM/ALBUTEROL 0.5/2.5MG 3 ML NEBU. NEB SCH ×4 (08:01→20:32)
[2018-12-25] MEDS: CALCIUM CARBONATE 500 MG TABLET PO SCH ×3 (08:03→18:00)
[2018-12-25] MEDS: METOPROLOL TART IMMED RELEASE 25 MG TABLET. PO SCH ×2 (08:03→21:00)
[2018-12-25 08:21] LABS: BASE EXCESS ABG -3 mmol/L (-3-3); HCO3 ABG 20 mmol/L (21-28); PCO2 ABG 28 mmHg (35-46); PO2 ABG 93 mmHg (75-108); SAT O2 ABG 97 % (92-99)
[2018-12-25] MEDS ORDERED: POTASSIUM CHL 20MEQ PREMIX 50 ML IV SCH (08:30)
[2018-12-25 08:33] LABS: FIO2 ABG 40
[2018-12-25] MEDS: ELECTROLYTE (ICU) PROTOCOL. MC SCH (08:50)
[2018-12-25] MEDS: POTASSIUM CHL 20MEQ PREMIX 50 ML IV SCH ×4 (08:50→12:37)
[2018-12-25] MEDS: HALOPERIDOL LACTATE 5 MG/ML VIAL. IVP PRN (09:04)
[2018-12-25] MEDS: AMINO AC 3%/ELECTROLYTE/GLYCER 1,000 ML IV SCH (09:05)
[2018-12-25] MEDS: NICOTINE 21MG PATCH. TD SCH (09:08)
--- NOTE | 2018-12-25 09:14 | RAD ---
PORTABLE CHEST 1V Clinical indications: Tachypnea. Follow-up of lung infiltrate. COMPARISON: December 24, 2018. Findings: Persistent right lung base infiltrate or atelectasis is seen and is unchanged. Increasing left lung base consolidation with associated small left-sided pleural effusion is seen. No pneumothorax is seen. There've been no interval tube or line changes. Heart size and mediastinum are stable. IMPRESSION: Since the prior study, there is worsening left lung base consolidative infiltrate and associated left-sided pleural effusion. Electronically signed by: Ten Mcbride MD (12/25/2018 9:11 AM) [id number]
--- NOTE | 2018-12-25 09:21 | PDOC ---
PULMONARY PROGRESS NOTES Subjective PT SEDATED ON AC MODE Vitals Vital Signs Date Time Temp Pulse Resp B/P (MAP) Pulse Ox O2 Delivery O2 Flow Rate FiO2 12/25/18 08:38 100 Ventilator 12/25/18 07:58 2.0 12/25/18 07:28 22 12/25/18 06:15 73 100/58 (72) 12/25/18 04:00 99.6 99.6 Lungs: Clear Cardiovascular: S1, S2 Abdomen: Soft Extremities: Other (EDEMA) Skin: Warm Labs Laboratory Tests Test 12/23/18 23:00 12/24/18 02:05 12/24/18 09:20 12/24/18 10:26 Sodium Level 142 mmol/L (136-145) 143 mmol/L (136-145) 143 mmol/L (136-145) Potassium Level 3.1 mmol/L (3.5-5.1) 3.4 mmol/L (3.5-5.1) 4.5 mmol/L (3.5-5.1) Chloride Level 107 mmol/L (98-107) 109 mmol/L (98-107) 112 mmol/L (98-107) Carbon Dioxide Level 25 mmol/L (21-32) 22 mmol/L (21-32) 19 mmol/L (21-32) Anion Gap 10 (6-14) 12 (6-14) 12 (6-14) Blood Urea Nitrogen 14 mg/dL (8-26) 27 mg/dL (8-26) 55 mg/dL (8-26) Creatinine 0.7 mg/dL (0.7-1.3) 0.9 mg/dL (0.7-1.3) 1.4 mg/dL (0.7-1.3) Estimated GFR (Cockcroft-Gault) 116.2 87.0 52.2 Glucose Level 129 mg/dL (70-99) 158 mg/dL (70-99) 186 mg/dL (70-99) Calcium Level 8.3 mg/dL (8.5-10.1) 8.2 mg/dL (8.5-10.1) 8.0 mg/dL (8.5-10.1) White Blood Count 17.8 x10^3/uL (4.0-11.0) 18.0 x10^3/uL (4.0-11.0) Red Blood Count 3.97 x10^6/uL (4.30-5.70) 2.94 x10^6/uL (4.30-5.70) Hemoglobin 10.1 g/dL (13.0-17.5) 7.5 g/dL (13.0-17.5) Hematocrit 31.6 % (39.0-53.0) 23.8 % (39.0-53.0) Mean Corpuscular Volume 80 fL (79-100) 81 fL (79-100) Mean Corpuscular Hemoglobin 26 pg (25-35) 26 pg (25-35) Mean Corpuscular Hemoglobin Concent 32 g/dL (31-37) 32 g/dL (31-37) Red Cell Distribution Width 21.1 % (11.5-14.5) 21.1 % (11.5-14.5) Platelet Count 507 x10^3/uL (140-400) 443 x10^3/uL (140-400) Neutrophils (%) (Auto) 83 % (31-73) Lymphocytes (%) (Auto) 6 % (24-48) Monocytes (%) (Auto) 9 % (0-9) Eosinophils (%) (Auto) 1 % (0-3) Basophils (%) (Auto) 1 % (0-3) Neutrophils # (Auto) 14.8 x10^3/uL (1.8-7.7) Lymphocytes # (Auto) 1.1 x10^3/uL (1.0-4.8) Monocytes # (Auto) 1.7 x10^3/uL (0.0-1.1) Eosinophils # (Auto) 0.1 x10^3/uL (0.0-0.7) Basophils # (Auto) 0.2 x10^3/uL (0.0-0.2) Prothrombin Time 34.5 SEC (11.7-14.0) 43.2 SEC (11.7-14.0) Prothromb Time International Ratio 3.4 (0.8-1.1) 4.5 (0.8-1.1) Lactic Acid Level 2.4 mmol/L (0.4-2.0) Troponin I Quantitative 0.031 ng/mL (0.000-0.055) O2 Saturation 98 % (92-99) Arterial Blood pH 7.36 (7.35-7.45) Arterial Blood pCO2 at Patient Temp 18 mmHg (35-46) Arterial Blood pO2 at Patient Temp 126 mmHg (75-108) Arterial Blood HCO3 10 mmol/L (21-28) Arterial Blood Base Excess -14 mmol/L (-3-3) Oxyhemoglobin 96.8 % Methemoglobin 0.5 % (0.0-1.9) Carbon Monoxide, Quantitative 0.5 % (0.0-1.9) FiO2 36 Test 12/24/18 10:45 12/24/18 13:17 12/24/18 13:40 12/24/18 15:05 White Blood Count 16.6 x10^3/uL (4.0-11.0) Red Blood Count 2.79 x10^6/uL (4.30-5.70) Hemoglobin 7.2 g/dL (13.0-17.5) Hematocrit 22.8 % (39.0-53.0) Mean Corpuscular Volume 82 fL (79-100) Mean Corpuscular Hemoglobin 26 pg (25-35) Mean Corpuscular Hemoglobin Concent 31 g/dL (31-37) Red Cell Distribution Width 20.5 % (11.5-14.5) Platelet Count 470 x10^3/uL (140-400) Neutrophils (%) (Auto) 86 % (31-73) Lymphocytes (%) (Auto) 7 % (24-48) Monocytes (%) (Auto) 6 % (0-9) Eosinophils (%) (Auto) 0 % (0-3) Basophils (%) (Auto) 0 % (0-3) Neutrophils # (Auto) 14.3 x10^3/uL (1.8-7.7) Lymphocytes # (Auto) 1.2 x10^3/uL (1.0-4.8) Monocytes # (Auto) 1.1 x10^3/uL (0.0-1.1) Eosinophils # (Auto) 0.0 x10^3/uL (0.0-0.7) Basophils # (Auto) 0.1 x10^3/uL (0.0-0.2) Segmented Neutrophils % 86 % (35-66) Band Neutrophils % 3 % (0-9) Lymphocytes % 7 % (24-48) Monocytes % 4 % (0-10) Platelet Estimate Adequate (ADEQUATE) Anisocytosis Present Sodium Level 142 mmol/L (136-145) Potassium Level 5.0 mmol/L (3.5-5.1) Chloride Level 109 mmol/L (98-107) Carbon Dioxide Level 15 mmol/L (21-32) Anion Gap 18 (6-14) Blood Urea Nitrogen 55 mg/dL (8-26) Creatinine 1.7 mg/dL (0.7-1.3) Estimated GFR (Cockcroft-Gault) 41.8 BUN/Creatinine Ratio 32 (6-20) Glucose Level 237 mg/dL (70-99) Calcium Level 8.1 mg/dL (8.5-10.1) Magnesium Level 1.9 mg/dL (1.8-2.4) Total Bilirubin 0.4 mg/dL (0.2-1.0) Aspartate Amino Transf (AST/SGOT) 21 U/L (15-37) Alanine Aminotransferase (ALT/SGPT) 18 U/L (16-63) Alkaline Phosphatase 32 U/L (46-116) Ammonia 92 mcmol/L (11-34) Total Protein 4.6 g/dL (6.4-8.2) Albumin 2.3 g/dL (3.4-5.0) Albumin/Globulin Ratio 1.0 (1.0-1.7) Procalcitonin 0.64 ng/mL (0.00-0.10) O2 Saturation 98 % (92-99) Arterial Blood pH 7.38 (7.35-7.45) Arterial Blood pCO2 at Patient Temp 21 mmHg (35-46) Arterial Blood pO2 at Patient Temp 120 mmHg (75-108) Arterial Blood HCO3 12 mmol/L (21-28) Arterial Blood Base Excess -12 mmol/L (-3-3) FiO2 40 Glucose (Fingerstick) 157 mg/dL (70-99) Prothrombin Time 34.1 SEC (11.7-14.0) Prothromb Time International Ratio 3.4 (0.8-1.1) Lactic Acid Level 5.2 mmol/L (0.4-2.0) Iron Level 39 ug/dL (65-175) Total Iron Binding Capacity 176 ug/dL (250-450) Iron Saturation 22 % (15-34) Ferritin 786 ng/mL (26-388) Test 12/24/18 19:50 12/24/18 19:59 12/24/18 21:00 12/25/18 05:45 O2 Saturation 97 % (92-99) Arterial Blood pH 7.46 (7.35-7.45) Arterial Blood pCO2 at Patient Temp 25 mmHg (35-46) Arterial Blood pO2 at Patient Temp 107 mmHg (75-108) Arterial Blood HCO3 17 mmol/L (21-28) Arterial Blood Base Excess -6 mmol/L (-3-3) FiO2 40 Urine Collection Type Unknown Urine Color Yellow Urine Clarity Clear Urine pH 5.5 Urine Specific [place] 1.020 Urine Protein 30 mg/dL (NEG-TRACE) Urine Glucose (UA) 250 mg/dL (NEG) Urine Ketones (Stick) Negative mg/dL (NEG) Urine Blood Moderate (NEG) Urine Nitrite Negative (NEG) Urine Bilirubin Negative (NEG) Urine Urobilinogen Dipstick 0.2 mg/dL (0.2 mg/dL) Urine Leukocyte Esterase Negative (NEG) Urine RBC Occ /HPF (0-2) Urine WBC 1-4 /HPF (0-4) Urine Transitional Epithelial Cells Occ /LPF Urine Renal Epithelial Cells Occ /LPF Urine Amorphous Sediment Present /HPF Urine Bacteria 0 /HPF (0-FEW) Urine Hyaline Casts Few /HPF Urine Granular Casts Moderate /HPF Urine Mucus Mod /LPF White Blood Count 12.8 x10^3/uL (4.0-11.0) 10.8 x10^3/uL (4.0-11.0) Red Blood Count 2.39 x10^6/uL (4.30-5.70) 2.64 x10^6/uL (4.30-5.70) Hemoglobin 6.7 g/dL (13.0-17.5) 7.9 g/dL (13.0-17.5) Hematocrit 19.9 % (39.0-53.0) 22.9 % (39.0-53.0) Mean Corpuscular Volume 84 fL (79-100) 87 fL (79-100) Mean Corpuscular Hemoglobin 28 pg (25-35) 30 pg (25-35) Mean Corpuscular Hemoglobin Concent 34 g/dL (31-37) 35 g/dL (31-37) Red Cell Distribution Width 19.6 % (11.5-14.5) 17.5 % (11.5-14.5) Platelet Count 234 x10^3/uL (140-400) 195 x10^3/uL (140-400) Prothrombin Time 22.7 SEC (11.7-14.0) 19.5 SEC (11.7-14.0) Prothromb Time International Ratio 2.0 (0.8-1.1) 1.7 (0.8-1.1) Activated Partial Thromboplast Time 33 SEC (24-38) Fibrinogen 298 mg/dL (200-440) Neutrophils (%) (Auto) 82 % (31-73) Lymphocytes (%) (Auto) 10 % (24-48) Monocytes (%) (Auto) 8 % (0-9) Eosinophils (%) (Auto) 0 % (0-3) Basophils (%) (Auto) 1 % (0-3) Neutrophils # (Auto) 8.8 x10^3/uL (1.8-7.7) Lymphocytes # (Auto) 1.1 x10^3/uL (1.0-4.8) Monocytes # (Auto) 0.8 x10^3/uL (0.0-1.1) Eosinophils # (Auto) 0.0 x10^3/uL (0.0-0.7) Basophils # (Auto) 0.1 x10^3/uL (0.0-0.2) Ammonia 13 mcmol/L (11-34) Lipase 35 U/L (73-393) Test 12/25/18 06:30 12/25/18 08:00 Sodium Level 152 mmol/L (136-145) Potassium Level 3.0 mmol/L (3.5-5.1) Chloride Level 119 mmol/L (98-107) Carbon Dioxide Level 25 mmol/L (21-32) Anion Gap 8 (6-14) Blood Urea Nitrogen 41 mg/dL (8-26) Creatinine 1.2 mg/dL (0.7-1.3) Estimated GFR (Cockcroft-Gault) 62.4 BUN/Creatinine Ratio 34 (6-20) Glucose Level 133 mg/dL (70-99) Calcium Level 7.7 mg/dL (8.5-10.1) Total Bilirubin 0.7 mg/dL (0.2-1.0) Aspartate Amino Transf (AST/SGOT) 1390 U/L (15-37) Alanine Aminotransferase (ALT/SGPT) 1059 U/L (16-63) Alkaline Phosphatase 27 U/L (46-116) Total Protein 4.9 g/dL (6.4-8.2) Albumin 2.6 g/dL (3.4-5.0) Albumin/Globulin Ratio 1.1 (1.0-1.7) O2 Saturation 97 % (92-99) Arterial Blood pH 7.47 (7.35-7.45) Arterial Blood pCO2 at Patient Temp 28 mmHg (35-46) Arterial Blood pO2 at Patient Temp 93 mmHg (75-108) Arterial Blood HCO3 20 mmol/L (21-28) Arterial Blood Base Excess -3 mmol/L (-3-3) FiO2 40 Laboratory Tests Test 12/24/18 10:26 12/24/18 10:45 12/24/18 13:17 12/24/18 13:40 O2 Saturation 98 % (92-99) 98 % (92-99) Arterial Blood pH 7.36 (7.35-7.45) 7.38 (7.35-7.45) Arterial Blood pCO2 at Patient Temp 18 mmHg (35-46) 21 mmHg (35-46) Arterial Blood pO2 at Patient Temp 126 mmHg (75-108) 120 mmHg (75-108) Arterial Blood HCO3 10 mmol/L (21-28) 12 mmol/L (21-28) Arterial Blood Base Excess -14 mmol/L (-3-3) -12 mmol/L (-3-3) Oxyhemoglobin 96.8 % Methemoglobin 0.5 % (0.0-1.9) Carbon Monoxide, Quantitative 0.5 % (0.0-1.9) FiO2 36 40 White Blood Count 16.6 x10^3/uL (4.0-11.0) Red Blood Count 2.79 x10^6/uL (4.30-5.70) Hemoglobin 7.2 g/dL (13.0-17.5) Hematocrit 22.8 % (39.0-53.0) Mean Corpuscular Volume 82 fL (79-100) Mean Corpuscular Hemoglobin 26 pg (25-35) Mean Corpuscular Hemoglobin Concent 31 g/dL (31-37) Red Cell Distribution Width 20.5 % (11.5-14.5) Platelet Count 470 x10^3/uL (140-400) Neutrophils (%) (Auto) 86 % (31-73) Lymphocytes (%) (Auto) 7 % (24-48) Monocytes (%) (Auto) 6 % (0-9) Eosinophils (%) (Auto) 0 % (0-3) Basophils (%) (Auto) 0 % (0-3) Neutrophils # (Auto) 14.3 x10^3/uL (1.8-7.7) Lymphocytes # (Auto) 1.2 x10^3/uL (1.0-4.8) Monocytes # (Auto) 1.1 x10^3/uL (0.0-1.1) Eosinophils # (Auto) 0.0 x10^3/uL (0.0-0.7) Basophils # (Auto) 0.1 x10^3/uL (0.0-0.2) Segmented Neutrophils % 86 % (35-66) Band Neutrophils % 3 % (0-9) Lymphocytes % 7 % (24-48) Monocytes % 4 % (0-10) Platelet Estimate Adequate (ADEQUATE) Anisocytosis Present Sodium Level 142 mmol/L (136-145) Potassium Level 5.0 mmol/L (3.5-5.1) Chloride Level 109 mmol/L (98-107) Carbon Dioxide Level 15 mmol/L (21-32) Anion Gap 18 (6-14) Blood Urea Nitrogen 55 mg/dL (8-26) Creatinine 1.7 mg/dL (0.7-1.3) Estimated GFR (Cockcroft-Gault) 41.8 BUN/Creatinine Ratio 32 (6-20) Glucose Level 237 mg/dL (70-99) Calcium Level 8.1 mg/dL (8.5-10.1) Magnesium Level 1.9 mg/dL (1.8-2.4) Total Bilirubin 0.4 mg/dL (0.2-1.0) Aspartate Amino Transf (AST/SGOT) 21 U/L (15-37) Alanine Aminotransferase (ALT/SGPT) 18 U/L (16-63) Alkaline Phosphatase 32 U/L (46-116) Ammonia 92 mcmol/L (11-34) Total Protein 4.6 g/dL (6.4-8.2) Albumin 2.3 g/dL (3.4-5.0) Albumin/Globulin Ratio 1.0 (1.0-1.7) Procalcitonin 0.64 ng/mL (0.00-0.10) Glucose (Fingerstick) 157 mg/dL (70-99) Test 12/24/18 15:05 12/24/18 19:50 12/24/18 19:59 12/24/18 21:00 Prothrombin Time 34.1 SEC (11.7-14.0) 22.7 SEC (11.7-14.0) Prothromb Time International Ratio 3.4 (0.8-1.1) 2.0 (0.8-1.1) Lactic Acid Level 5.2 mmol/L (0.4-2.0) Iron Level 39 ug/dL (65-175) Total Iron Binding Capacity 176 ug/dL (250-450) Iron Saturation 22 % (15-34) Ferritin 786 ng/mL (26-388) O2 Saturation 97 % (92-99) Arterial Blood pH 7.46 (7.35-7.45) Arterial Blood pCO2 at Patient Temp 25 mmHg (35-46) Arterial Blood pO2 at Patient Temp 107 mmHg (75-108) Arterial Blood HCO3 17 mmol/L (21-28) Arterial Blood Base Excess -6 mmol/L (-3-3) FiO2 40 Urine Collection Type Unknown Urine Color Yellow Urine Clarity Clear Urine pH 5.5 Urine Specific [place] 1.020 Urine Protein 30 mg/dL (NEG-TRACE) Urine Glucose (UA) 250 mg/dL (NEG) Urine Ketones (Stick) Negative mg/dL (NEG) Urine Blood Moderate (NEG) Urine Nitrite Negative (NEG) Urine Bilirubin Negative (NEG) Urine Urobilinogen Dipstick 0.2 mg/dL (0.2 mg/dL) Urine Leukocyte Esterase Negative (NEG) Urine RBC Occ /HPF (0-2) Urine WBC 1-4 /HPF (0-4) Urine Transitional Epithelial Cells Occ /LPF Urine Renal Epithelial Cells Occ /LPF Urine Amorphous Sediment Present /HPF Urine Bacteria 0 /HPF (0-FEW) Urine Hyaline Casts Few /HPF Urine Granular Casts Moderate /HPF Urine Mucus Mod /LPF White Blood Count 12.8 x10^3/uL (4.0-11.0) Red Blood Count 2.39 x10^6/uL (4.30-5.70) Hemoglobin 6.7 g/dL (13.0-17.5) Hematocrit 19.9 % (39.0-53.0) Mean Corpuscular Volume 84 fL (79-100) Mean Corpuscular Hemoglobin 28 pg (25-35) Mean Corpuscular Hemoglobin Concent 34 g/dL (31-37) Red Cell Distribution Width 19.6 % (11.5-14.5) Platelet Count 234 x10^3/uL (140-400) Activated Partial Thromboplast Time 33 SEC (24-38) Fibrinogen 298 mg/dL (200-440) Test 12/25/18 05:45 12/25/18 06:30 12/25/18 08:00 White Blood Count 10.8 x10^3/uL (4.0-11.0) Red Blood Count 2.64 x10^6/uL (4.30-5.70) Hemoglobin 7.9 g/dL (13.0-17.5) Hematocrit 22.9 % (39.0-53.0) Mean Corpuscular Volume 87 fL (79-100) Mean Corpuscular Hemoglobin 30 pg (25-35) Mean Corpuscular Hemoglobin Concent 35 g/dL (31-37) Red Cell Distribution Width 17.5 % (11.5-14.5) Platelet Count 195 x10^3/uL (140-400) Neutrophils (%) (Auto) 82 % (31-73) Lymphocytes (%) (Auto) 10 % (24-48) Monocytes (%) (Auto) 8 % (0-9) Eosinophils (%) (Auto) 0 % (0-3) Basophils (%) (Auto) 1 % (0-3) Neutrophils # (Auto) 8.8 x10^3/uL (1.8-7.7) Lymphocytes # (Auto) 1.1 x10^3/uL (1.0-4.8) Monocytes # (Auto) 0.8 x10^3/uL (0.0-1.1) Eosinophils # (Auto) 0.0 x10^3/uL (0.0-0.7) Basophils # (Auto) 0.1 x10^3/uL (0.0-0.2) Prothrombin Time 19.5 SEC (11.7-14.0) Prothromb Time International Ratio 1.7 (0.8-1.1) Ammonia 13 mcmol/L (11-34) Lipase 35 U/L (73-393) Sodium Level 152 mmol/L (136-145) Potassium Level 3.0 mmol/L (3.5-5.1) Chloride Level 119 mmol/L (98-107) Carbon Dioxide Level 25 mmol/L (21-32) Anion Gap 8 (6-14) Blood Urea Nitrogen 41 mg/dL (8-26) Creatinine 1.2 mg/dL (0.7-1.3) Estimated GFR (Cockcroft-Gault) 62.4 BUN/Creatinine Ratio 34 (6-20) Glucose Level 133 mg/dL (70-99) Calcium Level 7.7 mg/dL (8.5-10.1) Total Bilirubin 0.7 mg/dL (0.2-1.0) Aspartate Amino Transf (AST/SGOT) 1390 U/L (15-37) Alanine Aminotransferase (ALT/SGPT) 1059 U/L (16-63) Alkaline Phosphatase 27 U/L (46-116) Total Protein 4.9 g/dL (6.4-8.2) Albumin 2.6 g/dL (3.4-5.0) Albumin/Globulin Ratio 1.1 (1.0-1.7) O2 Saturation 97 % (92-99) Arterial Blood pH 7.47 (7.35-7.45) Arterial Blood pCO2 at Patient Temp 28 mmHg (35-46) Arterial Blood pO2 at Patient Temp 93 mmHg (75-108) Arterial Blood HCO3 20 mmol/L (21-28) Arterial Blood Base Excess -3 mmol/L (-3-3) FiO2 40 Medications Active Scripts Medications Dose Route/Sig Max Daily Dose Days Date Category Lorazepam 1 Mg Tablet 1 Tab PO BID 12/10/18 Reported Percocet 7.5-325 Mg Tablet (Oxycodone/Acetaminophen) 1 Each Tablet 1 Tab PO PRN Q6HRS PRN 12/10/18 Reported Coumadin (Warfarin Sodium) 5 Mg Tablet 1 Tab PO DAILY 10/06/17 Reported Lisinopril 20 Mg Tablet 1 Tab PO DAILY 10/06/17 Reported Impression . IMPRESSION: 1. Acute respiratory failure secondary to severe metabolic acidosis. 2. Metabolic acidosis. 3. Septic shock versus acute volemic shock. 4. Leukocytosis. 5. Acute drop in hemoglobin. 6. Alcoholism. 7. Hyponatremia, improved. 8. Protein malnutrition. 9. Metabolic toxic encephalopathy. 10. Possible aspiration. 11. Fever. 12. History of seizures. 13. Chronic obstructive pulmonary disease. 14. Hypertension. 15. Peripheral neuropathy. 16. Status post aortic valve replacement for aortic stenosis. 17. NON VARICEAL BLEED UPON EGD ENDO REPORT IMP: Non-variceal bleeding, distal esophagus. Inflammatory/Dieulafoy possible, aggravated by coagulopathy. REC: Continue PPI drip Correct coags. Transfuse prn. Watch INR, platelet counts. Observe for signs of ongoing bleeding. Small OG OK gently if needed. Plan . HEMODYNAMICALLY BETTER ON MULTIPLE PRESSORS AND AMIODARONE SEDTED ON AC MODE NOT READY FOR WEANING ENDO REPORT NOTED LABS REVIEWED WEAN OFF PRESSORS CCT 35 MINUTES REVIWINT LABS, DATA, XRY AND D/W OTHER PHYSICIANS YOHAN COWAN MD Dec 25, 2018 09:21
--- NOTE | 2018-12-25 09:59 | PDOC ---
[facility] PROGRESS NOTE Chief Complaint Chief Complaint Respiratory failure now intubated Fall ETOH withdrawal , severe Toxic encephalopathy Altered mental status, worse today Tachycardia Severe alcohol abuse Dysphagia Fever Hypernatremia Fall risk Mild aneurysmal dilation of the ascending aorta History of Present Illness History of Present Illness 12/25/18 Pt seen and examined in the ICU Sedated and intubated Was resting in bed Charts and labs reviewed AC 16/500/3.0/35% 5.0 PEEP AST 1390, ALT 1059 Poor prognosis PEGGY RN 12/24/18 Pt seen and examined bedside INC soa, tachy, dark stool x 2 altered mental status Was resting in BED DW RN; Charts and labs reviewed Replace potassium Failed swallow test Poor prognosis Check serum osmolality 12/17/18 Pt seen and examined in ICU PT still sedated PEGGY RN that she tried to wean the patient off of Precedex but he continued to be combative so she had to continue the sedation meds Consulted neurology to make sure there isn't other pathology causing his mental status change Charts and labs reviewed NA 143 12/16/18 Pt seen and examined in the ICU Pt is sedated with IV Precedex PEGGY RN Pt was combative in the morning Charts and labs reviewed Na: 140 12/15/18 Pt seen and examined in the ICU Pt's son was seen leaving the room Pt is still sedated with Precedex Pt requested pain medications Chart and labs reviewed Hyponatremia resolved Pt is bradycardic with rate of 50 D/w RN 12/14/18 Pt seen and examined in the ICU Pt still sedated with Precedex INR 1.1 Hyponatremia has resolved PEGGY RN Reviewed chart 12/13/18 Pt seen and examined in the ICU Pt was combative and trying to get out of bed all morning. Pt was given Ativan, Haldol, Benadryl, Zyprexa and finally Fentanyl for patient safety. He was comfortably snoring. Discussed with son who was glad to see the pt finally asleep. PEGGY AVALOS Vitals/I&O Vitals/I&O: Vital Signs Date Time Temp Pulse Resp B/P (MAP) Pulse Ox O2 Delivery O2 Flow Rate FiO2 12/25/18 08:38 100 Ventilator 12/25/18 07:58 2.0 12/25/18 07:28 22 12/25/18 06:15 73 100/58 (72) 12/25/18 04:00 99.6 99.6 I & O 12/24/18 12/24/18 12/25/18 15:00 23:00 07:00 Intake Total 1279 ml 3416 ml 1535 ml Output Total 2350 ml 880 ml Balance 1279 ml 1066 ml 655 ml Physical Exam Physical Exam: GENERAL: Intubated and sedated on IV pressors and PPN HEENT: ET tube in place NECK: Supple. LUNGS: Clear to auscultation. rr = 30 HEART: S1, S2. ABDOMEN: Obese, soft, and nontender with bowel sounds present. Rectal tube : Peng EXTREMITIES: No gross edema or cyanosis. [place] SKIN: Warm to touch. No signs of rash.some healing scraps/echymosis NEUROLOGIC: encephalophic IV: RUE PICC General: Cooperative, moderate distress, Other (confused , TACHYPNIC) Heart: Regular rate, Normal S1, Normal S2, No murmurs, Other (valvular click, TACHY 145) Lungs: Clear, Wheezing Abdomen: Normal bowel sounds, Soft, No tenderness, No masses (HEPATOMEGALY) Extremities: No clubbing, No cyanosis, Other (trace bilateral LE edema ) Skin: No significant lesion Labs Labs: Laboratory Tests Test 12/24/18 10:26 12/24/18 10:45 12/24/18 13:17 12/24/18 13:40 O2 Saturation 98 % (92-99) 98 % (92-99) Arterial Blood pH 7.36 (7.35-7.45) 7.38 (7.35-7.45) Arterial Blood pCO2 at Patient Temp 18 mmHg (35-46) 21 mmHg (35-46) Arterial Blood pO2 at Patient Temp 126 mmHg (75-108) 120 mmHg (75-108) Arterial Blood HCO3 10 mmol/L (21-28) 12 mmol/L (21-28) Arterial Blood Base Excess -14 mmol/L (-3-3) -12 mmol/L (-3-3) Oxyhemoglobin 96.8 % Methemoglobin 0.5 % (0.0-1.9) Carbon Monoxide, Quantitative 0.5 % (0.0-1.9) FiO2 36 40 White Blood Count 16.6 x10^3/uL (4.0-11.0) Red Blood Count 2.79 x10^6/uL (4.30-5.70) Hemoglobin 7.2 g/dL (13.0-17.5) Hematocrit 22.8 % (39.0-53.0) Mean Corpuscular Volume 82 fL (79-100) Mean Corpuscular Hemoglobin 26 pg (25-35) Mean Corpuscular Hemoglobin Concent 31 g/dL (31-37) Red Cell Distribution Width 20.5 % (11.5-14.5) Platelet Count 470 x10^3/uL (140-400) Neutrophils (%) (Auto) 86 % (31-73) Lymphocytes (%) (Auto) 7 % (24-48) Monocytes (%) (Auto) 6 % (0-9) Eosinophils (%) (Auto) 0 % (0-3) Basophils (%) (Auto) 0 % (0-3) Neutrophils # (Auto) 14.3 x10^3/uL (1.8-7.7) Lymphocytes # (Auto) 1.2 x10^3/uL (1.0-4.8) Monocytes # (Auto) 1.1 x10^3/uL (0.0-1.1) Eosinophils # (Auto) 0.0 x10^3/uL (0.0-0.7) Basophils # (Auto) 0.1 x10^3/uL (0.0-0.2) Segmented Neutrophils % 86 % (35-66) Band Neutrophils % 3 % (0-9) Lymphocytes % 7 % (24-48) Monocytes % 4 % (0-10) Platelet Estimate Adequate (ADEQUATE) Anisocytosis Present Sodium Level 142 mmol/L (136-145) Potassium Level 5.0 mmol/L (3.5-5.1) Chloride Level 109 mmol/L (98-107) Carbon Dioxide Level 15 mmol/L (21-32) Anion Gap 18 (6-14) Blood Urea Nitrogen 55 mg/dL (8-26) Creatinine 1.7 mg/dL (0.7-1.3) Estimated GFR (Cockcroft-Gault) 41.8 BUN/Creatinine Ratio 32 (6-20) Glucose Level 237 mg/dL (70-99) Calcium Level 8.1 mg/dL (8.5-10.1) Magnesium Level 1.9 mg/dL (1.8-2.4) Total Bilirubin 0.4 mg/dL (0.2-1.0) Aspartate Amino Transf (AST/SGOT) 21 U/L (15-37) Alanine Aminotransferase (ALT/SGPT) 18 U/L (16-63) Alkaline Phosphatase 32 U/L (46-116) Ammonia 92 mcmol/L (11-34) Total Protein 4.6 g/dL (6.4-8.2) Albumin 2.3 g/dL (3.4-5.0) Albumin/Globulin Ratio 1.0 (1.0-1.7) Procalcitonin 0.64 ng/mL (0.00-0.10) Glucose (Fingerstick) 157 mg/dL (70-99) Test 12/24/18 15:05 12/24/18 19:50 12/24/18 19:59 12/24/18 21:00 Prothrombin Time 34.1 SEC (11.7-14.0) 22.7 SEC (11.7-14.0) Prothromb Time International Ratio 3.4 (0.8-1.1) 2.0 (0.8-1.1) Lactic Acid Level 5.2 mmol/L (0.4-2.0) Iron Level 39 ug/dL (65-175) Total Iron Binding Capacity 176 ug/dL (250-450) Iron Saturation 22 % (15-34) Ferritin 786 ng/mL (26-388) O2 Saturation 97 % (92-99) Arterial Blood pH 7.46 (7.35-7.45) Arterial Blood pCO2 at Patient Temp 25 mmHg (35-46) Arterial Blood pO2 at Patient Temp 107 mmHg (75-108) Arterial Blood HCO3 17 mmol/L (21-28) Arterial Blood Base Excess -6 mmol/L (-3-3) FiO2 40 Urine Collection Type Unknown Urine Color Yellow Urine Clarity Clear Urine pH 5.5 Urine Specific [place] 1.020 Urine Protein 30 mg/dL (NEG-TRACE) Urine Glucose (UA) 250 mg/dL (NEG) Urine Ketones (Stick) Negative mg/dL (NEG) Urine Blood Moderate (NEG) Urine Nitrite Negative (NEG) Urine Bilirubin Negative (NEG) Urine Urobilinogen Dipstick 0.2 mg/dL (0.2 mg/dL) Urine Leukocyte Esterase Negative (NEG) Urine RBC Occ /HPF (0-2) Urine WBC 1-4 /HPF (0-4) Urine Transitional Epithelial Cells Occ /LPF Urine Renal Epithelial Cells Occ /LPF Urine Amorphous Sediment Present /HPF Urine Bacteria 0 /HPF (0-FEW) Urine Hyaline Casts Few /HPF Urine Granular Casts Moderate /HPF Urine Mucus Mod /LPF White Blood Count 12.8 x10^3/uL (4.0-11.0) Red Blood Count 2.39 x10^6/uL (4.30-5.70) Hemoglobin 6.7 g/dL (13.0-17.5) Hematocrit 19.9 % (39.0-53.0) Mean Corpuscular Volume 84 fL (79-100) Mean Corpuscular Hemoglobin 28 pg (25-35) Mean Corpuscular Hemoglobin Concent 34 g/dL (31-37) Red Cell Distribution Width 19.6 % (11.5-14.5) Platelet Count 234 x10^3/uL (140-400) Activated Partial Thromboplast Time 33 SEC (24-38) Fibrinogen 298 mg/dL (200-440) Test 12/25/18 05:45 12/25/18 06:30 12/25/18 08:00 White Blood Count 10.8 x10^3/uL (4.0-11.0) Red Blood Count 2.64 x10^6/uL (4.30-5.70) Hemoglobin 7.9 g/dL (13.0-17.5) Hematocrit 22.9 % (39.0-53.0) Mean Corpuscular Volume 87 fL (79-100) Mean Corpuscular Hemoglobin 30 pg (25-35) Mean Corpuscular Hemoglobin Concent 35 g/dL (31-37) Red Cell Distribution Width 17.5 % (11.5-14.5) Platelet Count 195 x10^3/uL (140-400) Neutrophils (%) (Auto) 82 % (31-73) Lymphocytes (%) (Auto) 10 % (24-48) Monocytes (%) (Auto) 8 % (0-9) Eosinophils (%) (Auto) 0 % (0-3) Basophils (%) (Auto) 1 % (0-3) Neutrophils # (Auto) 8.8 x10^3/uL (1.8-7.7) Lymphocytes # (Auto) 1.1 x10^3/uL (1.0-4.8) Monocytes # (Auto) 0.8 x10^3/uL (0.0-1.1) Eosinophils # (Auto) 0.0 x10^3/uL (0.0-0.7) Basophils # (Auto) 0.1 x10^3/uL (0.0-0.2) Prothrombin Time 19.5 SEC (11.7-14.0) Prothromb Time International Ratio 1.7 (0.8-1.1) Ammonia 13 mcmol/L (11-34) Lipase 35 U/L (73-393) Sodium Level 152 mmol/L (136-145) Potassium Level 3.0 mmol/L (3.5-5.1) Chloride Level 119 mmol/L (98-107) Carbon Dioxide Level 25 mmol/L (21-32) Anion Gap 8 (6-14) Blood Urea Nitrogen 41 mg/dL (8-26) Creatinine 1.2 mg/dL (0.7-1.3) Estimated GFR (Cockcroft-Gault) 62.4 BUN/Creatinine Ratio 34 (6-20) Glucose Level 133 mg/dL (70-99) Calcium Level 7.7 mg/dL (8.5-10.1) Total Bilirubin 0.7 mg/dL (0.2-1.0) Aspartate Amino Transf (AST/SGOT) 1390 U/L (15-37) Alanine Aminotransferase (ALT/SGPT) 1059 U/L (16-63) Alkaline Phosphatase 27 U/L (46-116) Total Protein 4.9 g/dL (6.4-8.2) Albumin 2.6 g/dL (3.4-5.0) Albumin/Globulin Ratio 1.1 (1.0-1.7) O2 Saturation 97 % (92-99) Arterial Blood pH 7.47 (7.35-7.45) Arterial Blood pCO2 at Patient Temp 28 mmHg (35-46) Arterial Blood pO2 at Patient Temp 93 mmHg (75-108) Arterial Blood HCO3 20 mmol/L (21-28) Arterial Blood Base Excess -3 mmol/L (-3-3) FiO2 40 Review of Systems Review of Systems: Unable to obtain Pt is sedated and intubated Assessment and Plan Assessmemt and Plan Problems Medical Problems: (1) Alcohol abuse Status: Acute (2) Closed head injury Status: Acute Assessment Respiratory failure EtOH Withdrawal Liver shock Hypokalemia GI Bleed Severe alcohol abuse Plan ICU monitoring Trend Hgb Trend LFTs Trend ammonia Continue IV K+ Vent weaning Wean off pressors Poor prognosis Full code Total time 31 minutes Comment Review of Relevant I have reviewed the following items robert (where applicable) has been applied. Medications: Current Medications Medications (Trade) Dose Ordered Sig/Siddharth Route PRN Reason Start Time Stop Time Status Last Admin Dose Admin Cefepime HCl (Maxipime) 2 gm Q8HRS IVP 12/24/18 10:00 12/25/18 05:50 Metronidazole 100 ml @ 100 mls/hr Q8HRS IV 12/24/18 10:00 12/25/18 05:49 Daptomycin 460 mg/ Sodium Chloride 50 ml @ 100 mls/hr Q24H IV 12/24/18 11:00 12/24/18 12:07 Micafungin Sodium 100 mg/Dextrose 100 ml @ 100 mls/hr Q24H IV 12/24/18 12:00 12/24/18 18:42 Pantoprazole Sodium 80 mg/ Sodium Chloride 100 ml @ 10 mls/hr Q10H IV 12/24/18 11:00 12/25/18 07:29 Info (Icu Electrolyte Protocol) 1 ea DAILY 12/25/18 09:00 12/25/18 08:50 Sodium Chloride 1,000 ml @ 2,130 mls/hr Q29M IV 12/24/18 10:50 12/24/18 11:50 DC 12/24/18 12:13 Norepinephrine Bitartrate 250 ml @ 0 mls/hr CONT PRN IV SEE COMMENTS 12/24/18 11:00 12/24/18 20:22 Sodium Bicarbonate (Sodium Bicarb Adult 8.4% Syr) 100 meq 1X ONCE IV 12/24/18 11:15 12/24/18 11:16 DC 12/24/18 11:16 Phytonadione (Vitamin K Ampule) 5 mg 1X ONCE SQ 12/24/18 11:15 12/24/18 11:22 DC 12/24/18 12:24 Succinylcholine Chloride (Anectine) 60 mg 1X ONCE IV 12/24/18 11:45 10/9/19 11:46 DC 12/24/18 12:04 Midazolam HCl (Versed) 2 mg 1X ONCE IV 12/24/18 11:45 12/24/18 11:46 DC 12/24/18 11:30 Midazolam HCl 100 ml @ 5 mls/hr CONT PRN IV SEE I/O RECORD 12/24/18 12:00 12/24/18 21:58 Fentanyl Citrate 30 ml @ 0 mls/hr CONT PRN IV SEE PROTOCOL 12/24/18 12:00 12/25/18 07:28 Metoclopramide HCl (Reglan Vial) 10 mg 1X ONCE IVP 12/24/18 12:45 12/24/18 12:46 DC 12/24/18 15:00 Vasopressin 40 unit/Dextrose 102 ml @ 6 mls/hr CONT PRN IV SEE I/O RECORD 12/24/18 13:00 12/25/18 05:52 Albumin Human 500 ml @ 125 mls/hr 1X ONCE IV 12/24/18 14:45 12/24/18 18:44 DC 12/24/18 14:39 Digoxin (Lanoxin) 500 mcg 1X ONCE IV 12/24/18 15:30 12/24/18 15:31 DC 12/24/18 15:30 Phytonadione (Vitamin K Ampule) 10 mg 1X ONCE SQ 12/24/18 15:45 12/24/18 15:49 DC 12/24/18 17:36 Amiodarone HCl 150 mg/Dextrose 103 ml @ 618 mls/hr 1X ONCE IV 12/24/18 16:00 12/24/18 16:09 DC 12/24/18 17:09 Amiodarone HCl 900 mg/Dextrose 518 ml @ 0 mls/hr CONT PRN IV SEE I/O RECORD 12/24/18 16:00 12/24/18 17:55 DC 12/24/18 17:55 Potassium Chloride/Water 50 ml @ 50 mls/hr Q1H IV 12/25/18 09:00 12/25/18 12:59 12/25/18 08:50 CASTLE,NIAL K III DO Dec 25, 2018 09:59
[2018-12-25] MEDS: MIDAZOLAM 100mg/100ml NS BAG 100 ML IV PRN ×2 (10:47→23:40)
[2018-12-25] MEDS: TPN PER PHARMACY MC PRN ×2 (11:24→12:32)
[2018-12-25] MEDS: DAPTOmycin (GENERIC) IVPB 460 MG in IV NORMAL SALINE 50ML 50 ML IV SCH (11:47)
[2018-12-25] MEDS: MICAFUNGIN 100 MG in IV DEXTROSE 5% 100ML 100 ML IV SCH (11:48)
--- NOTE | 2018-12-25 12:59 | NUR ---
Pharmacy TPN Dosing Note S: SHAW OG is a 58 year old M Currently receiving Central Continuous TPN started 12/25/18 B:Pertinent PMH: NPO Height: 5 feet, 9 inches Weight: 78.295961 kg Current diet: LABS: Sodium: 152 Potassium: 3.0 Chloride: 119 Calcium: 7.7 Corrected Calcium: 8.82 Magnesium: 1.9 CO2: 25 SCr: 1.2 Glucose: 133 Albumin: 2.6 AST: 1390 ALT: 1059 TPN FORMULA: TPN TYPE: Central Continuous AMINO ACIDS: 95 gm DEXTROSE: 250 gm LIPIDS: 20 gm SODIUM CHLORIDE: 50 mEq SODIUM ACETATE: mEq SODIUM PHOSPHATE: mmol POTASSIUM CHLORIDE: mEq POTASSIUM ACETATE: 70 mEq POTASSIUM PHOSPHATE: 13.6 mmol MAGNESIUM: 10 mEq CALCIUM: 10 mEq INSULIN: units MULTIPLE VITAMIN: 10 ml TRACE ELEMENTS: 1 ml(s) TPN PLAN: HOUSE TPN WITH AA 95GM, DEXTROSE 250 GM, LIPID 20 GM R: Begin TPN AT 63ML/HR Will monitor electrolytes, glucose, and tolerance to TPN. BERNY NGUYỄN [facility], 12/25/18 [id number]
--- NOTE | 2018-12-25 13:32 | PDOC ---
G I PROGRESS NOTE Subjective Sedated on ventilator. Objective No reports of any overt bleeding from staff. No OG tube though. Physical Exam Lungs clear anteriorly. RRR with valve clicks. Abdomen soft, not distended. Review of Relevant I have reviewed the following items robert (where applicable) has been applied. Labs Laboratory Tests Test 12/23/18 23:00 12/24/18 02:05 12/24/18 09:20 12/24/18 10:26 Sodium Level 142 mmol/L (136-145) 143 mmol/L (136-145) 143 mmol/L (136-145) Potassium Level 3.1 mmol/L (3.5-5.1) 3.4 mmol/L (3.5-5.1) 4.5 mmol/L (3.5-5.1) Chloride Level 107 mmol/L (98-107) 109 mmol/L (98-107) 112 mmol/L (98-107) Carbon Dioxide Level 25 mmol/L (21-32) 22 mmol/L (21-32) 19 mmol/L (21-32) Anion Gap 10 (6-14) 12 (6-14) 12 (6-14) Blood Urea Nitrogen 14 mg/dL (8-26) 27 mg/dL (8-26) 55 mg/dL (8-26) Creatinine 0.7 mg/dL (0.7-1.3) 0.9 mg/dL (0.7-1.3) 1.4 mg/dL (0.7-1.3) Estimated GFR (Cockcroft-Gault) 116.2 87.0 52.2 Glucose Level 129 mg/dL (70-99) 158 mg/dL (70-99) 186 mg/dL (70-99) Calcium Level 8.3 mg/dL (8.5-10.1) 8.2 mg/dL (8.5-10.1) 8.0 mg/dL (8.5-10.1) White Blood Count 17.8 x10^3/uL (4.0-11.0) 18.0 x10^3/uL (4.0-11.0) Red Blood Count 3.97 x10^6/uL (4.30-5.70) 2.94 x10^6/uL (4.30-5.70) Hemoglobin 10.1 g/dL (13.0-17.5) 7.5 g/dL (13.0-17.5) Hematocrit 31.6 % (39.0-53.0) 23.8 % (39.0-53.0) Mean Corpuscular Volume 80 fL (79-100) 81 fL (79-100) Mean Corpuscular Hemoglobin 26 pg (25-35) 26 pg (25-35) Mean Corpuscular Hemoglobin Concent 32 g/dL (31-37) 32 g/dL (31-37) Red Cell Distribution Width 21.1 % (11.5-14.5) 21.1 % (11.5-14.5) Platelet Count 507 x10^3/uL (140-400) 443 x10^3/uL (140-400) Neutrophils (%) (Auto) 83 % (31-73) Lymphocytes (%) (Auto) 6 % (24-48) Monocytes (%) (Auto) 9 % (0-9) Eosinophils (%) (Auto) 1 % (0-3) Basophils (%) (Auto) 1 % (0-3) Neutrophils # (Auto) 14.8 x10^3/uL (1.8-7.7) Lymphocytes # (Auto) 1.1 x10^3/uL (1.0-4.8) Monocytes # (Auto) 1.7 x10^3/uL (0.0-1.1) Eosinophils # (Auto) 0.1 x10^3/uL (0.0-0.7) Basophils # (Auto) 0.2 x10^3/uL (0.0-0.2) Prothrombin Time 34.5 SEC (11.7-14.0) 43.2 SEC (11.7-14.0) Prothromb Time International Ratio 3.4 (0.8-1.1) 4.5 (0.8-1.1) Lactic Acid Level 2.4 mmol/L (0.4-2.0) Troponin I Quantitative 0.031 ng/mL (0.000-0.055) O2 Saturation 98 % (92-99) Arterial Blood pH 7.36 (7.35-7.45) Arterial Blood pCO2 at Patient Temp 18 mmHg (35-46) Arterial Blood pO2 at Patient Temp 126 mmHg (75-108) Arterial Blood HCO3 10 mmol/L (21-28) Arterial Blood Base Excess -14 mmol/L (-3-3) Oxyhemoglobin 96.8 % Methemoglobin 0.5 % (0.0-1.9) Carbon Monoxide, Quantitative 0.5 % (0.0-1.9) FiO2 36 Test 12/24/18 10:45 12/24/18 13:17 12/24/18 13:40 12/24/18 15:05 White Blood Count 16.6 x10^3/uL (4.0-11.0) Red Blood Count 2.79 x10^6/uL (4.30-5.70) Hemoglobin 7.2 g/dL (13.0-17.5) Hematocrit 22.8 % (39.0-53.0) Mean Corpuscular Volume 82 fL (79-100) Mean Corpuscular Hemoglobin 26 pg (25-35) Mean Corpuscular Hemoglobin Concent 31 g/dL (31-37) Red Cell Distribution Width 20.5 % (11.5-14.5) Platelet Count 470 x10^3/uL (140-400) Neutrophils (%) (Auto) 86 % (31-73) Lymphocytes (%) (Auto) 7 % (24-48) Monocytes (%) (Auto) 6 % (0-9) Eosinophils (%) (Auto) 0 % (0-3) Basophils (%) (Auto) 0 % (0-3) Neutrophils # (Auto) 14.3 x10^3/uL (1.8-7.7) Lymphocytes # (Auto) 1.2 x10^3/uL (1.0-4.8) Monocytes # (Auto) 1.1 x10^3/uL (0.0-1.1) Eosinophils # (Auto) 0.0 x10^3/uL (0.0-0.7) Basophils # (Auto) 0.1 x10^3/uL (0.0-0.2) Segmented Neutrophils % 86 % (35-66) Band Neutrophils % 3 % (0-9) Lymphocytes % 7 % (24-48) Monocytes % 4 % (0-10) Platelet Estimate Adequate (ADEQUATE) Anisocytosis Present Sodium Level 142 mmol/L (136-145) Potassium Level 5.0 mmol/L (3.5-5.1) Chloride Level 109 mmol/L (98-107) Carbon Dioxide Level 15 mmol/L (21-32) Anion Gap 18 (6-14) Blood Urea Nitrogen 55 mg/dL (8-26) Creatinine 1.7 mg/dL (0.7-1.3) Estimated GFR (Cockcroft-Gault) 41.8 BUN/Creatinine Ratio 32 (6-20) Glucose Level 237 mg/dL (70-99) Calcium Level 8.1 mg/dL (8.5-10.1) Magnesium Level 1.9 mg/dL (1.8-2.4) Total Bilirubin 0.4 mg/dL (0.2-1.0) Aspartate Amino Transf (AST/SGOT) 21 U/L (15-37) Alanine Aminotransferase (ALT/SGPT) 18 U/L (16-63) Alkaline Phosphatase 32 U/L (46-116) Ammonia 92 mcmol/L (11-34) Total Protein 4.6 g/dL (6.4-8.2) Albumin 2.3 g/dL (3.4-5.0) Albumin/Globulin Ratio 1.0 (1.0-1.7) Procalcitonin 0.64 ng/mL (0.00-0.10) O2 Saturation 98 % (92-99) Arterial Blood pH 7.38 (7.35-7.45) Arterial Blood pCO2 at Patient Temp 21 mmHg (35-46) Arterial Blood pO2 at Patient Temp 120 mmHg (75-108) Arterial Blood HCO3 12 mmol/L (21-28) Arterial Blood Base Excess -12 mmol/L (-3-3) FiO2 40 Glucose (Fingerstick) 157 mg/dL (70-99) Prothrombin Time 34.1 SEC (11.7-14.0) Prothromb Time International Ratio 3.4 (0.8-1.1) Lactic Acid Level 5.2 mmol/L (0.4-2.0) Iron Level 39 ug/dL (65-175) Total Iron Binding Capacity 176 ug/dL (250-450) Iron Saturation 22 % (15-34) Ferritin 786 ng/mL (26-388) Test 12/24/18 19:50 12/24/18 19:59 12/24/18 21:00 12/25/18 05:45 O2 Saturation 97 % (92-99) Arterial Blood pH 7.46 (7.35-7.45) Arterial Blood pCO2 at Patient Temp 25 mmHg (35-46) Arterial Blood pO2 at Patient Temp 107 mmHg (75-108) Arterial Blood HCO3 17 mmol/L (21-28) Arterial Blood Base Excess -6 mmol/L (-3-3) FiO2 40 Urine Collection Type Unknown Urine Color Yellow Urine Clarity Clear Urine pH 5.5 Urine Specific [place] 1.020 Urine Protein 30 mg/dL (NEG-TRACE) Urine Glucose (UA) 250 mg/dL (NEG) Urine Ketones (Stick) Negative mg/dL (NEG) Urine Blood Moderate (NEG) Urine Nitrite Negative (NEG) Urine Bilirubin Negative (NEG) Urine Urobilinogen Dipstick 0.2 mg/dL (0.2 mg/dL) Urine Leukocyte Esterase Negative (NEG) Urine RBC Occ /HPF (0-2) Urine WBC 1-4 /HPF (0-4) Urine Transitional Epithelial Cells Occ /LPF Urine Renal Epithelial Cells Occ /LPF Urine Amorphous Sediment Present /HPF Urine Bacteria 0 /HPF (0-FEW) Urine Hyaline Casts Few /HPF Urine Granular Casts Moderate /HPF Urine Mucus Mod /LPF White Blood Count 12.8 x10^3/uL (4.0-11.0) 10.8 x10^3/uL (4.0-11.0) Red Blood Count 2.39 x10^6/uL (4.30-5.70) 2.64 x10^6/uL (4.30-5.70) Hemoglobin 6.7 g/dL (13.0-17.5) 7.9 g/dL (13.0-17.5) Hematocrit 19.9 % (39.0-53.0) 22.9 % (39.0-53.0) Mean Corpuscular Volume 84 fL (79-100) 87 fL (79-100) Mean Corpuscular Hemoglobin 28 pg (25-35) 30 pg (25-35) Mean Corpuscular Hemoglobin Concent 34 g/dL (31-37) 35 g/dL (31-37) Red Cell Distribution Width 19.6 % (11.5-14.5) 17.5 % (11.5-14.5) Platelet Count 234 x10^3/uL (140-400) 195 x10^3/uL (140-400) Prothrombin Time 22.7 SEC (11.7-14.0) 19.5 SEC (11.7-14.0) Prothromb Time International Ratio 2.0 (0.8-1.1) 1.7 (0.8-1.1) Activated Partial Thromboplast Time 33 SEC (24-38) Fibrinogen 298 mg/dL (200-440) Neutrophils (%) (Auto) 82 % (31-73) Lymphocytes (%) (Auto) 10 % (24-48) Monocytes (%) (Auto) 8 % (0-9) Eosinophils (%) (Auto) 0 % (0-3) Basophils (%) (Auto) 1 % (0-3) Neutrophils # (Auto) 8.8 x10^3/uL (1.8-7.7) Lymphocytes # (Auto) 1.1 x10^3/uL (1.0-4.8) Monocytes # (Auto) 0.8 x10^3/uL (0.0-1.1) Eosinophils # (Auto) 0.0 x10^3/uL (0.0-0.7) Basophils # (Auto) 0.1 x10^3/uL (0.0-0.2) Ammonia 13 mcmol/L (11-34) Lipase 35 U/L (73-393) Test 12/25/18 06:30 12/25/18 08:00 12/25/18 11:32 Sodium Level 152 mmol/L (136-145) Potassium Level 3.0 mmol/L (3.5-5.1) Chloride Level 119 mmol/L (98-107) Carbon Dioxide Level 25 mmol/L (21-32) Anion Gap 8 (6-14) Blood Urea Nitrogen 41 mg/dL (8-26) Creatinine 1.2 mg/dL (0.7-1.3) Estimated GFR (Cockcroft-Gault) 62.4 BUN/Creatinine Ratio 34 (6-20) Glucose Level 133 mg/dL (70-99) Calcium Level 7.7 mg/dL (8.5-10.1) Total Bilirubin 0.7 mg/dL (0.2-1.0) Aspartate Amino Transf (AST/SGOT) 1390 U/L (15-37) Alanine Aminotransferase (ALT/SGPT) 1059 U/L (16-63) Alkaline Phosphatase 27 U/L (46-116) Total Protein 4.9 g/dL (6.4-8.2) Albumin 2.6 g/dL (3.4-5.0) Albumin/Globulin Ratio 1.1 (1.0-1.7) O2 Saturation 97 % (92-99) Arterial Blood pH 7.47 (7.35-7.45) Arterial Blood pCO2 at Patient Temp 28 mmHg (35-46) Arterial Blood pO2 at Patient Temp 93 mmHg (75-108) Arterial Blood HCO3 20 mmol/L (21-28) Arterial Blood Base Excess -3 mmol/L (-3-3) FiO2 40 Lactic Acid Level 0.9 mmol/L (0.4-2.0) Laboratory Tests Test 12/24/18 13:40 12/24/18 15:05 12/24/18 19:50 12/24/18 19:59 Glucose (Fingerstick) 157 mg/dL (70-99) Prothrombin Time 34.1 SEC (11.7-14.0) Prothromb Time International Ratio 3.4 (0.8-1.1) Lactic Acid Level 5.2 mmol/L (0.4-2.0) Iron Level 39 ug/dL (65-175) Total Iron Binding Capacity 176 ug/dL (250-450) Iron Saturation 22 % (15-34) Ferritin 786 ng/mL (26-388) O2 Saturation 97 % (92-99) Arterial Blood pH 7.46 (7.35-7.45) Arterial Blood pCO2 at Patient Temp 25 mmHg (35-46) Arterial Blood pO2 at Patient Temp 107 mmHg (75-108) Arterial Blood HCO3 17 mmol/L (21-28) Arterial Blood Base Excess -6 mmol/L (-3-3) FiO2 40 Urine Collection Type Unknown Urine Color Yellow Urine Clarity Clear Urine pH 5.5 Urine Specific [place] 1.020 Urine Protein 30 mg/dL (NEG-TRACE) Urine Glucose (UA) 250 mg/dL (NEG) Urine Ketones (Stick) Negative mg/dL (NEG) Urine Blood Moderate (NEG) Urine Nitrite Negative (NEG) Urine Bilirubin Negative (NEG) Urine Urobilinogen Dipstick 0.2 mg/dL (0.2 mg/dL) Urine Leukocyte Esterase Negative (NEG) Urine RBC Occ /HPF (0-2) Urine WBC 1-4 /HPF (0-4) Urine Transitional Epithelial Cells Occ /LPF Urine Renal Epithelial Cells Occ /LPF Urine Amorphous Sediment Present /HPF Urine Bacteria 0 /HPF (0-FEW) Urine Hyaline Casts Few /HPF Urine Granular Casts Moderate /HPF Urine Mucus Mod /LPF Test 12/24/18 21:00 12/25/18 05:45 12/25/18 06:30 12/25/18 08:00 White Blood Count 12.8 x10^3/uL (4.0-11.0) 10.8 x10^3/uL (4.0-11.0) Red Blood Count 2.39 x10^6/uL (4.30-5.70) 2.64 x10^6/uL (4.30-5.70) Hemoglobin 6.7 g/dL (13.0-17.5) 7.9 g/dL (13.0-17.5) Hematocrit 19.9 % (39.0-53.0) 22.9 % (39.0-53.0) Mean Corpuscular Volume 84 fL (79-100) 87 fL (79-100) Mean Corpuscular Hemoglobin 28 pg (25-35) 30 pg (25-35) Mean Corpuscular Hemoglobin Concent 34 g/dL (31-37) 35 g/dL (31-37) Red Cell Distribution Width 19.6 % (11.5-14.5) 17.5 % (11.5-14.5) Platelet Count 234 x10^3/uL (140-400) 195 x10^3/uL (140-400) Prothrombin Time 22.7 SEC (11.7-14.0) 19.5 SEC (11.7-14.0) Prothromb Time International Ratio 2.0 (0.8-1.1) 1.7 (0.8-1.1) Activated Partial Thromboplast Time 33 SEC (24-38) Fibrinogen 298 mg/dL (200-440) Neutrophils (%) (Auto) 82 % (31-73) Lymphocytes (%) (Auto) 10 % (24-48) Monocytes (%) (Auto) 8 % (0-9) Eosinophils (%) (Auto) 0 % (0-3) Basophils (%) (Auto) 1 % (0-3) Neutrophils # (Auto) 8.8 x10^3/uL (1.8-7.7) Lymphocytes # (Auto) 1.1 x10^3/uL (1.0-4.8) Monocytes # (Auto) 0.8 x10^3/uL (0.0-1.1) Eosinophils # (Auto) 0.0 x10^3/uL (0.0-0.7) Basophils # (Auto) 0.1 x10^3/uL (0.0-0.2) Ammonia 13 mcmol/L (11-34) Lipase 35 U/L (73-393) Sodium Level 152 mmol/L (136-145) Potassium Level 3.0 mmol/L (3.5-5.1) Chloride Level 119 mmol/L (98-107) Carbon Dioxide Level 25 mmol/L (21-32) Anion Gap 8 (6-14) Blood Urea Nitrogen 41 mg/dL (8-26) Creatinine 1.2 mg/dL (0.7-1.3) Estimated GFR (Cockcroft-Gault) 62.4 BUN/Creatinine Ratio 34 (6-20) Glucose Level 133 mg/dL (70-99) Calcium Level 7.7 mg/dL (8.5-10.1) Total Bilirubin 0.7 mg/dL (0.2-1.0) Aspartate Amino Transf (AST/SGOT) 1390 U/L (15-37) Alanine Aminotransferase (ALT/SGPT) 1059 U/L (16-63) Alkaline Phosphatase 27 U/L (46-116) Total Protein 4.9 g/dL (6.4-8.2) Albumin 2.6 g/dL (3.4-5.0) Albumin/Globulin Ratio 1.1 (1.0-1.7) O2 Saturation 97 % (92-99) Arterial Blood pH 7.47 (7.35-7.45) Arterial Blood pCO2 at Patient Temp 28 mmHg (35-46) Arterial Blood pO2 at Patient Temp 93 mmHg (75-108) Arterial Blood HCO3 20 mmol/L (21-28) Arterial Blood Base Excess -3 mmol/L (-3-3) FiO2 40 Test 12/25/18 11:32 Lactic Acid Level 0.9 mmol/L (0.4-2.0) Microbiology 12/24/18 Blood Culture - Preliminary, Resulted NO GROWTH AFTER 1 DAY 12/20/18 Urine Culture - Final, Complete 12/20/18 Urine Culture Result 1 (AMARA) - Final, Complete Hemoglobin OK after transfusions. INR nearly normal. Vitals/I & O Vital Sign - Last 24 Hours 12/24/18 12/24/18 12/24/18 12/24/18 13:42 13:46 14:00 14:00 Temp 98.7 98.2 98.7 98.2 Pulse 133 140 144 Resp 30 44 B/P (MAP) 80/53 (62) 85/56 Pulse Ox 99 100 100 O2 Delivery Ventilator Ventilator Ventilator 12/24/18 12/24/18 12/24/18 12/24/18 14:15 14:15 14:30 14:45 Temp 98.5 98.5 Pulse 141 144 136 132 Resp 32 B/P (MAP) 90/52 80/56 (64) 102/62 (75) Pulse Ox 100 100 100 O2 Delivery Ventilator Ventilator Ventilator 12/24/18 12/24/18 12/24/18 12/24/18 15:00 15:15 15:30 15:30 Pulse 124 168 193 166 B/P (MAP) 108/53 (71) 105/67 (80) 124/98 115/72 (86) Pulse Ox 100 100 100 O2 Delivery Ventilator Ventilator Ventilator 12/24/18 12/24/18 12/24/18 12/24/18 16:00 16:00 16:15 16:15 Temp 98.7 98.7 Pulse 164 166 153 B/P (MAP) 135/71 (92) 110/69 (83) 112/80 (91) Pulse Ox 100 100 100 O2 Delivery Ventilator Mechanical Ventilator Ventilator Ventilator 12/24/18 12/24/18 12/24/18 12/24/18 16:30 16:32 16:45 16:48 Temp 99.8 99.8 Pulse 156 130 154 Resp 27 B/P (MAP) 128/87 (101) 146/85 (105) 128/87 Pulse Ox 100 100 100 O2 Delivery Ventilator Ventilator Ventilator 12/24/18 12/24/18 12/24/18/9/19 17:00 17:09 17:15 17:30 Temp 98.8 98.8 Pulse 153 174 184 B/P (MAP) 136/84 (101) 136/84 145/95 (112) 114/72 (86) Pulse Ox 100 100 100 O2 Delivery Ventilator Ventilator Ventilator 12/24/18 12/24/18 12/24/18 12/24/18 17:34 17:45 18:00 18:58 Temp 100.1 100.1 Pulse 136 134 120 Resp 28 B/P (MAP) 113/74 (87) 123/76 (92) 135/71 Pulse Ox 97 100 100 O2 Delivery Ventilator Ventilator Ventilator 12/24/18 12/24/18 12/24/18 12/24/18 19:00 19:15 19:30 19:32 Temp 100.0 100.0 Pulse 128 118 118 121 Resp 28 28 28 28 B/P (MAP) 141/74 (96) 165/73 (103) 155/70 (98) 155/70 Pulse Ox 99 99 99 O2 Delivery Ventilator Ventilator Ventilator 12/24/18 12/24/18 12/24/18 12/24/18 19:45 19:47 19:55 20:00 Temp 100.2 100.2 100.2 100.2 Pulse 122 121 118 Resp 32 B/P (MAP) 155/79 (104) 155/79 131/66 (87) Pulse Ox 99 99 98 O2 Delivery Ventilator Ventilator Ventilator 12/24/18 12/24/18 12/24/18 12/24/18 20:00 20:15 20:15 20:30 Temp 99.8 99.8 Pulse 116 116 114 Resp 27 B/P (MAP) 127/67 127/67 (87) 130/65 (86) O2 Delivery Mechanical Ventilator 12/24/18 12/24/18 12/24/18 12/24/18 20:30 20:45 21:00 21:15 Temp 100.2 100.2 Pulse 110 110 110 108 Resp 28 28 B/P (MAP) 130/65 131/66 (87) 109/63 (78) 121/75 (90) Pulse Ox 98 O2 Delivery Ventilator 12/24/18 12/24/18 12/24/18 12/24/18 21:30 21:30 21:30 21:45 Temp 99.2 99.2 Pulse 104 106 104 Resp 20 B/P (MAP) 127/68 125/69 (87) 127/68 (87) Pulse Ox 99 O2 Delivery Ventilator 12/24/18 12/24/18 12/24/18 12/24/18 22:00 22:13 22:15 22:28 Temp 99.2 99.7 99.2 99.7 Pulse 104 100 102 103 Resp 22 22 21 B/P (MAP) 136/63 (87) 124/60 124/60 (81) 119/62 Pulse Ox 99 O2 Delivery Ventilator 12/24/18 12/24/18 12/24/18 12/24/18 22:30 22:45 23:00 23:13 Temp 99.1 99.1 Pulse 110 98 92 91 Resp 22 21 B/P (MAP) 119/62 (81) 98/57 (71) 99/60 (73) 99/60 Pulse Ox 99 O2 Delivery Ventilator 12/24/18 12/24/18 12/24/18 12/24/18 23:15 23:30 23:30 23:45 Pulse 90 90 88 B/P (MAP) 109/65 (80) 115/66 (82) 125/69 (87) Pulse Ox 99 O2 Delivery Ventilator 12/25/18 12/25/18 12/25/18 12/25/18 00:00 00:00 00:15 00:30 Temp 99.6 99.6 Pulse 90 88 88 Resp 22 B/P (MAP) 136/74 (94) 117/64 (81) 101/58 (72) Pulse Ox 99 O2 Delivery Ventilator Mechanical Ventilator 12/25/18 12/25/18 12/25/18 12/25/18 00:38 00:43 00:45 00:51 Temp 99.1 99.1 99.1 99.1 Pulse 85 86 88 Resp 22 22 B/P (MAP) 101/58 101/58 105/62 (76) O2 Delivery Ventilator 12/25/18 12/25/18 12/25/18 12/25/18 00:58 01:00 01:10 01:28 Temp 98.4 98.4 Pulse 80 86 Resp 22 22 B/P (MAP) 109/64 104/74 (84) Pulse Ox 99 98 O2 Delivery Ventilator Ventilator Ventilator 12/25/18 12/25/18 12/25/18 12/25/18 01:45 01:58 02:00 02:45 Temp 98.3 98.3 Pulse 82 101 80 88 Resp 22 22 B/P (MAP) 118/66 (83) 98/69 110/62 (78) 85/51 (62) Pulse Ox 98 O2 Delivery Ventilator 12/25/18 12/25/18 12/25/18 12/25/18 02:58 03:00 03:20 03:35 Temp 98.4 98.2 98.4 98.2 Pulse 78 77 75 Resp 22 22 20 B/P (MAP) 93/54 93/54 (67) 98/57 Pulse Ox 97 98 O2 Delivery Ventilator Ventilator 12/25/18 12/25/18 12/25/18 12/25/18 03:50 04:00 04:00 05:00 Temp 99.6 99.6 99.6 99.6 Pulse 89 89 69 Resp 20 22 B/P (MAP) 154/116 112/64 (80) 101/60 (74) Pulse Ox 98 98 O2 Delivery Mechanical Ventilator Ventilator Ventilator 12/25/18 12/25/18 12/25/18 12/25/18 05:35 06:00 06:15 07:00 Pulse 80 73 76 Resp 22 22 B/P (MAP) 133/69 (90) 100/58 (72) 95/58 (70) Pulse Ox 98 99 98 O2 Delivery Ventilator Ventilator Ventilator 12/25/18 12/25/18 12/25/18 12/25/18 07:28 07:58 08:00 08:00 Temp 99.1 99.1 Pulse 70 Resp 22 22 B/P (MAP) 107/59 (75) Pulse Ox 98 100 98 O2 Delivery BiPAP/CPAP Ventilator Mechanical Ventilator O2 Flow Rate 2.0 12/25/18 12/25/18 12/25/18 12/25/18 08:02 08:38 09:00 10:00 Pulse 92 82 Resp 22 22 B/P (MAP) 110/63 (79) 100/56 (71) Pulse Ox 98 100 97 97 O2 Delivery Ventilator Ventilator Ventilator Ventilator 12/25/18 12/25/18 12/25/18 12/25/18 11:00 11:45 12:00 12:00 Temp 99.0 99.0 Pulse 78 82 Resp 22 22 B/P (MAP) 98/58 (71) 114/54 (74) Pulse Ox 98 98 98 O2 Delivery Ventilator Ventilator Ventilator Mechanical Ventilator 12/25/18 13:00 Pulse 78 Resp 22 B/P (MAP) 103/53 (70) Pulse Ox 98 O2 Delivery Ventilator Intake and Output 12/24/18 12/24/18 12/25/18 15:00 23:00 07:00 Intake Total 1279 ml 3416 ml 1535 ml Output Total 2350 ml 880 ml Balance 1279 ml 1066 ml 655 ml Problem List Problems Medical Problems: (1) Alcohol abuse Status: Acute (2) Closed head injury Status: Acute Assessment UGI bleed, esophagitis or Dieulafoy's suspect; seems stable after clipping and correction of coagulopathy. Consider central pontine myelinolysis if mental status remains poor after off ventilator. Hypertransaminasemia likely "shock liver"; should normalize if so. Plan of Care Note Continue PPI; after 48 hours, could stop drip and do BID push. Would not give warfarin just yet; could cautiously try heparin/Lovenox. Monitor for recurrent bleeding. Monitor LFT's. Off Saturday though the weekend. Dr. Maikol andres. SHAW BRIONES MD Dec 25, 2018 13:32
[2018-12-25] MEDS: ENALAPRILAT 1.25 MG/ML VIAL. IVP SCH ×2 (13:50→21:38)
--- NOTE | 2018-12-25 14:10 | PDOC ---
PROGRESS NOTES Assessment Assessment Toxic encephalopathy. Metabolic encephalopathy. Alcohol intoxication, alcohol level 231 on 12/10/18. GI bleeding. Anemia. Acute respiratory failure. Hx of seizure? AFib was on Coumadin. HTN. HLD. COPD. Peripheral neuropathy. Thrombocytosis. RECOMMENDATIONS/PLAN: Life support in ICU. Consulted GI. Continue Vit B1 supplement. Treat medical diseases. Avoid Haldol as possible. EEG on 12/18/17: No seizure activity. Borderline study. Brain MRI: No acute findings. HISTORY OF THE PRESENT ILLNESS: This is a 58-year-old male patient with history of above medical diseases and alcohol use/abuse presented to the emergency room on 12/10/18 with complaints of mechanical fall down 5 steps. He was intoxicated hit his head complained of neck pain and upper back pain and chest pain. He admitted that he had pain all over and he drank 9 beers that day. He he drinks regularly. Patient does take Coumadin for a Afib and valve disorder (?). Neurology was requested for consultation on 12/17/18 due to his prolonged mental status changes. He had MS changes and acute respiratory failure and was found to have acute blood loss. He was transferred to ICU during night on 12/23/18. Past Medical History Cardiovascular: AFIB, HTN, Other Pulmonary: COPD CENTRAL NERVOUS SYSTEM: Periperal neuropathy, Seizure GI: GERD Psych: Anxiety, Addictions, Depression Rheumatologic: Other Renal/: Benign prostatic enlarg. Past Surgical History No pertinent history Family History Hypertension ALLERGY: NKDA MEDICATIONS: Refer to [facility] SOCIAL HISTORY: He drinks alcohol heavily for many years. He uses marijuana. REVIEW OF SYSTEMS: Constitutional: No cachexia. Head: No current traumatic brain or head injury. Skin: No edema, or rash. Ear: No infection. Eyes: No vision loss or color blindness. Nose: No bleeding or purulent discharges. Hearing: No hearing decrease. Neck: No injury. Cardiac: AFib, HTN. Pulmonary: COPD. GI: GERD. Urinary/genital: No dysuria, incontinence, urinary retention. Endocrinologic: No cousin face, craniofacial dysmorphism, polydactyly. Skeletomuscular: No muscular atrophy, deformity. Neurological: see HP. Psychiatric: Alcohol and marijuana use/abuse. Otherwise, not [id number] review of systems. PHYSICAL EXAMINATION: General appearance is in subacute distress. HEENT: Normocephalic and nontraumatic. Eyes, nose, ears, and throat are unremarkable. Neck is supple. No lymphadenopathy. No crepitus. Cardiovascular: S1, S2, regular rate and rhythm. Pulmonary: Seemed clear to auscultation bilaterally. Abdomen: Bowel sounds are positive. Extremities: No rash, lesions, or edema. No restriction of range of motion NEUROLOGICAL EXAMINATION: On vent. Sedated. Unresponsive. Not oriented to time, place and person. PERRL. EOMI not elicited. CN: no acute focal findings. Muscle tone: WNL. Muscle strength: No movements noted. DTR: 0-1 Plantar reflex: Neutral response bilaterally Gait: Unable to walk. Sensory exam: minimal withdraw response noted to stimuli. Not able to access cerebellar signs. F-T-N test not performed due to unresponsiveness. Objective Objective Vital Signs Date Time Temp Pulse Resp B/P (MAP) Pulse Ox O2 Delivery O2 Flow Rate FiO2 12/25/18 14:03 98 Ventilator 12/25/18 13:00 78 22 103/53 (70) 12/25/18 12:00 99.0 99.0 12/25/18 07:58 2.0 Intake and Output 12/25/18 07:00 Intake Total 6230 ml Output Total 3230 ml Balance 3000 ml Intake Oral 0 ml IV Total 3171 ml Blood Product 675 ml Blood Product IV Normal Saline Flush 1854 ml Other 530 ml Output Urine Total 2380 ml Gastric Drainage Total 850 ml # Bowel Movements 1 Vitals Signs Vitals VS - Last 72 Hours, by Label Date Time Temp Pulse Resp B/P (MAP) Pulse Ox O2 Delivery O2 Flow Rate FiO2 12/25/18 14:03 98 Ventilator 12/25/18 13:00 78 22 103/53 (70) 98 Ventilator 12/25/18 12:00 Mechanical Ventilator 12/25/18 12:00 99.0 82 22 114/54 (74) 98 Ventilator 99.0 12/25/18 11:45 98 Ventilator 12/25/18 11:00 78 22 98/58 (71) 98 Ventilator 12/25/18 10:00 82 22 100/56 (71) 97 Ventilator 12/25/18 09:00 92 22 110/63 (79) 97 Ventilator 12/25/18 08:38 100 Ventilator 12/25/18 08:02 98 Ventilator 12/25/18 08:00 Mechanical Ventilator 12/25/18 08:00 99.1 70 22 107/59 (75) 98 Ventilator 99.1 12/25/18 07:58 100 2.0 12/25/18 07:28 22 98 BiPAP/CPAP 12/25/18 07:00 76 22 95/58 (70) 98 Ventilator 12/25/18 06:15 73 100/58 (72) 12/25/18 06:00 80 22 133/69 (90) 99 Ventilator 12/25/18 05:35 98 Ventilator 12/25/18 05:00 69 22 101/60 (74) 98 Ventilator 12/25/18 04:00 99.6 89 22 112/64 (80) 98 Ventilator 99.6 12/25/18 04:00 Mechanical Ventilator 12/25/18 03:50 99.6 89 20 154/116 99.6 12/25/18 03:35 98.2 75 20 98/57 98.2 12/25/18 03:20 98 Ventilator 12/25/18 03:00 77 22 93/54 (67) 97 Ventilator 12/25/18 02:58 98.4 78 22 93/54 98.4 12/25/18 02:45 88 85/51 (62) 12/25/18 02:00 80 22 110/62 (78) 98 Ventilator 12/25/18 01:58 98.3 101 22 98/69 98.3 12/25/18 01:45 82 118/66 (83) 12/25/18 01:28 Ventilator 12/25/18 01:10 98 Ventilator 12/25/18 01:00 86 22 104/74 (84) 99 Ventilator 12/25/18 00:58 98.4 80 22 109/64 98.4 12/25/18 00:51 Ventilator 12/25/18 00:45 88 105/62 (76) 12/25/18 00:43 99.1 86 22 101/58 99.1 12/25/18 00:38 99.1 85 22 101/58 99.1 12/25/18 00:30 88 101/58 (72) 12/25/18 00:15 88 117/64 (81) 12/25/18 00:00 Mechanical Ventilator 12/25/18 00:00 99.6 90 22 136/74 (94) 99 Ventilator 99.6 12/24/18 23:45 88 125/69 (87) 12/24/18 23:30 90 115/66 (82) 12/24/18 23:30 99 Ventilator 12/24/18 23:15 90 109/65 (80) 12/24/18 23:13 99.1 91 21 99/60 99.1 12/24/18 23:00 92 22 99/60 (73) 99 Ventilator 12/24/18 22:45 98 98/57 (71) 12/24/18 22:30 110 119/62 (81) 12/24/18 22:28 99.7 103 21 119/62 99.7 12/24/18 22:15 102 124/60 (81) 12/24/18 22:13 99.2 100 22 124/60 99.2 12/24/18 22:00 104 22 136/63 (87) 99 Ventilator 12/24/18 21:45 104 127/68 (87) 12/24/18 21:30 106 125/69 (87) 12/24/18 21:30 99.2 104 20 127/68 99.2 12/24/18 21:30 99 Ventilator 12/24/18 21:15 108 121/75 (90) 12/24/18 21:00 110 28 109/63 (78) 98 Ventilator 12/24/18 20:45 110 131/66 (87) 12/24/18 20:30 100.2 110 28 130/65 100.2 12/24/18 20:30 114 130/65 (86) 12/24/18 20:15 116 127/67 (87) 12/24/18 20:15 99.8 116 27 127/67 99.8 12/24/18 20:00 Mechanical Ventilator 12/24/18 20:00 100.2 118 28 131/66 (87) 98 Ventilator 100.2 12/24/18 19:55 99 Ventilator 12/24/18 19:47 100.2 121 28 155/79 100.2 12/24/18 19:45 122 32 155/79 (104) 99 Ventilator 12/24/18 19:32 100.0 121 28 155/70 100.0 12/24/18 19:30 118 28 155/70 (98) 99 Ventilator 12/24/18 19:15 118 28 165/73 (103) 99 Ventilator 10/9/19 19:00 128 28 141/74 (96) 99 Ventilator 12/24/18 18:58 100.1 120 28 135/71 100.1 12/24/18 18:00 134 123/76 (92) 100 Ventilator 12/24/18 17:45 136 113/74 (87) 100 Ventilator 12/24/18 17:34 97 Ventilator 12/24/18 17:30 184 114/72 (86) 100 Ventilator 12/24/18 17:15 174 145/95 (112) 100 Ventilator 12/24/18 17:09 153 136/84 12/24/18 17:00 98.8 136/84 (101) 100 Ventilator 98.8 12/24/18 16:48 99.8 154 27 128/87 99.8 12/24/18 16:45 130 146/85 (105) 100 Ventilator 12/24/18 16:32 100 Ventilator 12/24/18 16:30 156 128/87 (101) 100 Ventilator 12/24/18 16:15 153 112/80 (91) 100 Ventilator 12/24/18 16:15 166 110/69 (83) 100 Ventilator 12/24/18 16:00 Mechanical Ventilator 12/24/18 16:00 98.7 164 135/71 (92) 100 Ventilator 98.7 12/24/18 15:30 166 115/72 (86) 100 Ventilator 12/24/18 15:30 193 124/98 12/24/18 15:15 168 105/67 (80) 100 Ventilator 12/24/18 15:00 124 108/53 (71) 100 Ventilator 12/24/18 14:45 132 102/62 (75) 100 Ventilator 12/24/18 14:30 136 80/56 (64) 100 Ventilator 12/24/18 14:15 144 100 Ventilator 12/24/18 14:15 98.5 141 32 90/52 98.5 12/24/18 14:00 98.2 144 44 85/56 98.2 12/24/18 14:00 140 100 Ventilator 12/24/18 13:46 100 Ventilator 12/24/18 13:42 98.7 133 30 80/53 (62) 99 Ventilator 98.7 12/24/18 12:51 144 85/51 (62) 100 Ventilator 12/24/18 12:38 99.5 135 31 85/51 99.5 12/24/18 12:25 126 102/45 (64) 100 Ventilator 12/24/18 12:15 126 100 Ventilator 12/24/18 12:00 124 100 Ventilator 12/24/18 12:00 Mechanical Ventilator 12/24/18 11:47 100 Ventilator 12/24/18 11:45 130 35 66/38 (47) 100 Nasal Cannula 2.0 12/24/18 11:30 99.4 134 60 70/48 (55) 86 Nasal Cannula 2.0 99.4 12/24/18 11:00 99.0 144 42 104/53 (70) 96 Nasal Cannula 2.0 99.0 12/24/18 08:20 100 Nasal Cannula 2.0 12/24/18 08:15 Nasal Cannula 2.0 12/24/18 07:22 150 104/67 12/24/18 07:00 98.7 122 38 100/54 (69) 98 Nasal Cannula 2.0 98.7 Laboratory Laboratory Laboratory Tests Test 12/24/18 15:05 12/24/18 19:50 12/24/18 19:59 12/24/18 21:00 Prothrombin Time 34.1 SEC (11.7-14.0) 22.7 SEC (11.7-14.0) Prothromb Time International Ratio 3.4 (0.8-1.1) 2.0 (0.8-1.1) Lactic Acid Level 5.2 mmol/L (0.4-2.0) Iron Level 39 ug/dL (65-175) Total Iron Binding Capacity 176 ug/dL (250-450) Iron Saturation 22 % (15-34) Ferritin 786 ng/mL (26-388) O2 Saturation 97 % (92-99) Arterial Blood pH 7.46 (7.35-7.45) Arterial Blood pCO2 at Patient Temp 25 mmHg (35-46) Arterial Blood pO2 at Patient Temp 107 mmHg (75-108) Arterial Blood HCO3 17 mmol/L (21-28) Arterial Blood Base Excess -6 mmol/L (-3-3) FiO2 40 Urine Collection Type Unknown Urine Color Yellow Urine Clarity Clear Urine pH 5.5 Urine Specific [place] 1.020 Urine Protein 30 mg/dL (NEG-TRACE) Urine Glucose (UA) 250 mg/dL (NEG) Urine Ketones (Stick) Negative mg/dL (NEG) Urine Blood Moderate (NEG) Urine Nitrite Negative (NEG) Urine Bilirubin Negative (NEG) Urine Urobilinogen Dipstick 0.2 mg/dL (0.2 mg/dL) Urine Leukocyte Esterase Negative (NEG) Urine RBC Occ /HPF (0-2) Urine WBC 1-4 /HPF (0-4) Urine Transitional Epithelial Cells Occ /LPF Urine Renal Epithelial Cells Occ /LPF Urine Amorphous Sediment Present /HPF Urine Bacteria 0 /HPF (0-FEW) Urine Hyaline Casts Few /HPF Urine Granular Casts Moderate /HPF Urine Mucus Mod /LPF White Blood Count 12.8 x10^3/uL (4.0-11.0) Red Blood Count 2.39 x10^6/uL (4.30-5.70) Hemoglobin 6.7 g/dL (13.0-17.5) Hematocrit 19.9 % (39.0-53.0) Mean Corpuscular Volume 84 fL (79-100) Mean Corpuscular Hemoglobin 28 pg (25-35) Mean Corpuscular Hemoglobin Concent 34 g/dL (31-37) Red Cell Distribution Width 19.6 % (11.5-14.5) Platelet Count 234 x10^3/uL (140-400) Activated Partial Thromboplast Time 33 SEC (24-38) Fibrinogen 298 mg/dL (200-440) Test 12/25/18 05:45 12/25/18 06:30 12/25/18 08:00 12/25/18 11:32 White Blood Count 10.8 x10^3/uL (4.0-11.0) Red Blood Count 2.64 x10^6/uL (4.30-5.70) Hemoglobin 7.9 g/dL (13.0-17.5) Hematocrit 22.9 % (39.0-53.0) Mean Corpuscular Volume 87 fL (79-100) Mean Corpuscular Hemoglobin 30 pg (25-35) Mean Corpuscular Hemoglobin Concent 35 g/dL (31-37) Red Cell Distribution Width 17.5 % (11.5-14.5) Platelet Count 195 x10^3/uL (140-400) Neutrophils (%) (Auto) 82 % (31-73) Lymphocytes (%) (Auto) 10 % (24-48) Monocytes (%) (Auto) 8 % (0-9) Eosinophils (%) (Auto) 0 % (0-3) Basophils (%) (Auto) 1 % (0-3) Neutrophils # (Auto) 8.8 x10^3/uL (1.8-7.7) Lymphocytes # (Auto) 1.1 x10^3/uL (1.0-4.8) Monocytes # (Auto) 0.8 x10^3/uL (0.0-1.1) Eosinophils # (Auto) 0.0 x10^3/uL (0.0-0.7) Basophils # (Auto) 0.1 x10^3/uL (0.0-0.2) Prothrombin Time 19.5 SEC (11.7-14.0) Prothromb Time International Ratio 1.7 (0.8-1.1) Ammonia 13 mcmol/L (11-34) Lipase 35 U/L (73-393) Sodium Level 152 mmol/L (136-145) Potassium Level 3.0 mmol/L (3.5-5.1) Chloride Level 119 mmol/L (98-107) Carbon Dioxide Level 25 mmol/L (21-32) Anion Gap 8 (6-14) Blood Urea Nitrogen 41 mg/dL (8-26) Creatinine 1.2 mg/dL (0.7-1.3) Estimated GFR (Cockcroft-Gault) 62.4 BUN/Creatinine Ratio 34 (6-20) Glucose Level 133 mg/dL (70-99) Calcium Level 7.7 mg/dL (8.5-10.1) Total Bilirubin 0.7 mg/dL (0.2-1.0) Aspartate Amino Transf (AST/SGOT) 1390 U/L (15-37) Alanine Aminotransferase (ALT/SGPT) 1059 U/L (16-63) Alkaline Phosphatase 27 U/L (46-116) Total Protein 4.9 g/dL (6.4-8.2) Albumin 2.6 g/dL (3.4-5.0) Albumin/Globulin Ratio 1.1 (1.0-1.7) O2 Saturation 97 % (92-99) Arterial Blood pH 7.47 (7.35-7.45) Arterial Blood pCO2 at Patient Temp 28 mmHg (35-46) Arterial Blood pO2 at Patient Temp 93 mmHg (75-108) Arterial Blood HCO3 20 mmol/L (21-28) Arterial Blood Base Excess -3 mmol/L (-3-3) FiO2 40 Lactic Acid Level 0.9 mmol/L (0.4-2.0) Microbiology 12/24/18 Blood Culture - Preliminary, Resulted NO GROWTH AFTER 1 DAY 12/20/18 Urine Culture - Final, Complete 12/20/18 Urine Culture Result 1 (AMARA) - Final, Complete Medication Medications Current Medications Albumin Human 500 ml @ 125 mls/hr 1X ONCE IV Last administered on 12/24/18at 14:39; Start 12/24/18 at 14:45; Stop 12/24/18 at 18:44; Status DC Albumin Human 500 ml @ As Directed STK-MED ONCE IV ; Start 12/24/18 at 14:37; Stop 12/24/18 at 14:37; Status DC Amiodarone HCl 150 mg/Dextrose 103 ml @ 618 mls/hr 1X ONCE IV Last administered on 12/24/18at 17:09; Start 12/24/18 at 16:00; Stop 12/24/18 at 16:09; Status DC Amiodarone HCl 900 mg/Dextrose 518 ml @ 0 mls/hr CONT PRN IV SEE I/O RECORD Last administered on 12/24/18at 17:55; Start 12/24/18 at 16:00; Stop 12/24/18 at 17:55; Status DC Digoxin (Lanoxin) 500 mcg 1X ONCE IV Last administered on 12/24/18at 15:30; Start 12/24/18 at 15:30; Stop 12/24/18 at 15:31; Status DC Digoxin (Lanoxin) 500 mcg STK-MED ONCE .ROUTE ; Start 12/24/18 at 15:07; Stop 12/24/18 at 15:08; Status DC Info (Icu Electrolyte Protocol) 1 ea DAILY MC Last administered on 12/25/18 08:50; Start 12/25/18 at 09:00 Info (Tpn Per Pharmacy) 1 each PRN DAILY PRN MC SEE COMMENTS Last administered on 12/25/18at 12:32; Start 12/25/18 at 09:45 Phytonadione (Vitamin K Ampule) 10 mg 1X ONCE SQ Last administered on 10/9/19at 17:36; Start 12/24/18 at 15:45; Stop 12/24/18 at 15:49; Status DC Phytonadione (Vitamin K Ampule) 10 mg 1X ONCE SQ ; Start 12/24/18 at 17:00; Stop 12/24/18 at 17:01; Status DC Potassium Chloride/Water 50 ml @ 0 mls/hr Q1H IV ; Start 12/25/18 at 08:30; Stop 12/25/18 at 11:31; Status UNV Potassium Chloride/Water 50 ml @ 50 mls/hr Q1H IV Last administered on 12/25/18at 12:37; Start 12/25/18 at 09:00; Stop 12/25/18 at 12:59; Status DC Sodium Chloride 50 meq/Potassium Acetate 70 meq/ Potassium Phosphate 13.6 mmol/Magnesium Sulfate 10 meq/ Calcium Gluconate 10 meq/ Multivitamins 10 ml/Chromium/ Copper/Manganese/ Seleni/Zn 1 ml/ Total Parenteral Nutrition/Amino Acids/Dextrose/ Fat Emulsion Intravenous 1,512 ml @ 63 mls/hr TPN CONT IV ; Start 12/25/18 at 22:00; Stop 12/26/18 at 21:59 Warfarin Sodium (Coumadin - No Dose Today) 1 each 1X WARF ONCE MC ; Start 12/24/18 at 16:00; Stop 12/24/18 at 22:25; Status DC Comment Review of Relevant I have reviewed the following items robert (where applicable) has been applied. JAMEL BONILLA MD Dec 25, 2018 14:10
[2018-12-25 14:14] LABS: RED BLOOD COUNT 2.32 x10^6/uL (4.30-5.70); RED CELL DISTRIBUTION WIDTH 17.7 % (11.5-14.5); WHITE BLOOD COUNT 8.5 x10^3/uL (4.0-11.0)
[2018-12-25 14:16] LABS: HEMOGLOBIN 6.8 g/dL (13.0-17.5)
[2018-12-25 14:17] LABS: HEMATOCRIT 20.2 % (39.0-53.0)
--- NOTE | 2018-12-25 15:46 | PDOC ---
MIS GASPAR [employer] 12/25/18 1546: CARDIO Progress Notes Date and Time Date of Service 12/25/18 Time of Evaluation 1120 Subjective Subjective: Other (intubated/sedated ) Vitals Vitals Vital Signs Date Time Temp Pulse Resp B/P (MAP) Pulse Ox O2 Delivery O2 Flow Rate FiO2 12/25/18 15:35 99 2.0 12/25/18 14:41 Ventilator 12/25/18 13:00 78 22 103/53 (70) 12/25/18 12:00 99.0 99.0 Weight Weight [ ] Input and Output Intake and Output Intake and Output 12/25/18 07:00 Intake Total 6230 ml Output Total 3230 ml Balance 3000 ml Intake Oral 0 ml IV Total 3171 ml Blood Product 675 ml Blood Product IV Normal Saline Flush 1854 ml Other 530 ml Output Urine Total 2380 ml Gastric Drainage Total 850 ml # Bowel Movements 1 Laboratory Labs Laboratory Tests Test 12/24/18 19:50 12/24/18 19:59 12/24/18 21:00 12/25/18 05:45 O2 Saturation 97 % (92-99) Arterial Blood pH 7.46 (7.35-7.45) Arterial Blood pCO2 at Patient Temp 25 mmHg (35-46) Arterial Blood pO2 at Patient Temp 107 mmHg (75-108) Arterial Blood HCO3 17 mmol/L (21-28) Arterial Blood Base Excess -6 mmol/L (-3-3) FiO2 40 Urine Collection Type Unknown Urine Color Yellow Urine Clarity Clear Urine pH 5.5 Urine Specific [place] 1.020 Urine Protein 30 mg/dL (NEG-TRACE) Urine Glucose (UA) 250 mg/dL (NEG) Urine Ketones (Stick) Negative mg/dL (NEG) Urine Blood Moderate (NEG) Urine Nitrite Negative (NEG) Urine Bilirubin Negative (NEG) Urine Urobilinogen Dipstick 0.2 mg/dL (0.2 mg/dL) Urine Leukocyte Esterase Negative (NEG) Urine RBC Occ /HPF (0-2) Urine WBC 1-4 /HPF (0-4) Urine Transitional Epithelial Cells Occ /LPF Urine Renal Epithelial Cells Occ /LPF Urine Amorphous Sediment Present /HPF Urine Bacteria 0 /HPF (0-FEW) Urine Hyaline Casts Few /HPF Urine Granular Casts Moderate /HPF Urine Mucus Mod /LPF White Blood Count 12.8 x10^3/uL (4.0-11.0) 10.8 x10^3/uL (4.0-11.0) Red Blood Count 2.39 x10^6/uL (4.30-5.70) 2.64 x10^6/uL (4.30-5.70) Hemoglobin 6.7 g/dL (13.0-17.5) 7.9 g/dL (13.0-17.5) Hematocrit 19.9 % (39.0-53.0) 22.9 % (39.0-53.0) Mean Corpuscular Volume 84 fL (79-100) 87 fL (79-100) Mean Corpuscular Hemoglobin 28 pg (25-35) 30 pg (25-35) Mean Corpuscular Hemoglobin Concent 34 g/dL (31-37) 35 g/dL (31-37) Red Cell Distribution Width 19.6 % (11.5-14.5) 17.5 % (11.5-14.5) Platelet Count 234 x10^3/uL (140-400) 195 x10^3/uL (140-400) Prothrombin Time 22.7 SEC (11.7-14.0) 19.5 SEC (11.7-14.0) Prothromb Time International Ratio 2.0 (0.8-1.1) 1.7 (0.8-1.1) Activated Partial Thromboplast Time 33 SEC (24-38) Fibrinogen 298 mg/dL (200-440) Neutrophils (%) (Auto) 82 % (31-73) Lymphocytes (%) (Auto) 10 % (24-48) Monocytes (%) (Auto) 8 % (0-9) Eosinophils (%) (Auto) 0 % (0-3) Basophils (%) (Auto) 1 % (0-3) Neutrophils # (Auto) 8.8 x10^3/uL (1.8-7.7) Lymphocytes # (Auto) 1.1 x10^3/uL (1.0-4.8) Monocytes # (Auto) 0.8 x10^3/uL (0.0-1.1) Eosinophils # (Auto) 0.0 x10^3/uL (0.0-0.7) Basophils # (Auto) 0.1 x10^3/uL (0.0-0.2) Ammonia 13 mcmol/L (11-34) Lipase 35 U/L (73-393) Test 12/25/18 06:30 12/25/18 08:00 12/25/18 11:32 12/25/18 14:00 Sodium Level 152 mmol/L (136-145) Potassium Level 3.0 mmol/L (3.5-5.1) Chloride Level 119 mmol/L (98-107) Carbon Dioxide Level 25 mmol/L (21-32) Anion Gap 8 (6-14) Blood Urea Nitrogen 41 mg/dL (8-26) Creatinine 1.2 mg/dL (0.7-1.3) Estimated GFR (Cockcroft-Gault) 62.4 BUN/Creatinine Ratio 34 (6-20) Glucose Level 133 mg/dL (70-99) Calcium Level 7.7 mg/dL (8.5-10.1) Total Bilirubin 0.7 mg/dL (0.2-1.0) Aspartate Amino Transf (AST/SGOT) 1390 U/L (15-37) Alanine Aminotransferase (ALT/SGPT) 1059 U/L (16-63) Alkaline Phosphatase 27 U/L (46-116) Total Protein 4.9 g/dL (6.4-8.2) Albumin 2.6 g/dL (3.4-5.0) Albumin/Globulin Ratio 1.1 (1.0-1.7) O2 Saturation 97 % (92-99) Arterial Blood pH 7.47 (7.35-7.45) Arterial Blood pCO2 at Patient Temp 28 mmHg (35-46) Arterial Blood pO2 at Patient Temp 93 mmHg (75-108) Arterial Blood HCO3 20 mmol/L (21-28) Arterial Blood Base Excess -3 mmol/L (-3-3) FiO2 40 Lactic Acid Level 0.9 mmol/L (0.4-2.0) White Blood Count 8.5 x10^3/uL (4.0-11.0) Red Blood Count 2.32 x10^6/uL (4.30-5.70) Hemoglobin 6.8 g/dL (13.0-17.5) Hematocrit 20.2 % (39.0-53.0) Mean Corpuscular Volume 87 fL (79-100) Mean Corpuscular Hemoglobin 29 pg (25-35) Mean Corpuscular Hemoglobin Concent 34 g/dL (31-37) Red Cell Distribution Width 17.7 % (11.5-14.5) Platelet Count 168 x10^3/uL (140-400) Microbiology Micro Microbiology 12/24/18 Blood Culture - Preliminary, Resulted NO GROWTH AFTER 1 DAY 12/20/18 Urine Culture - Final, Complete 12/20/18 Urine Culture Result 1 (AMARA) - Final, Complete Review of Systems Constitutional: yes: alert, oriented Ears/Nose/Throat: Yes: no symptom reported Eyes: Yes: no symptom reported Pulmonary: Yes no symptom reported Cardiovascular: Yes no symptom reported Gastrointestional: Yes: no symptom reported Genitourinary: Yes: no symptom reported Musculoskeletal: Yes: no symptom reported Skin: Yes no symptom reported Physical Exam HEENT: Neck Supple W Full Motion Chest: Symmetric LUNGS: Other (intubated with mechanical vent) Heart: RRR (ST) Abdomen: Other (soft) Extremities: Other (trace LE edema ) Neurology: other (sedated ) Assessment Assessment 1. Mechanical fall secondary to intoxication 2. Aortic stenosis s/p mechanical aortic valve; OAC with warfarin. s/p vit K and FFP. INR 1.7 today. Echo with LVEF 55%. Images suboptimal 3. Metabolic, toxic encephalopathy 4. Fevers, low-grade. BC negative thus far. ID following 5. Hypertension; now hypotensive requiring pressor support. Off levo, remains on vasopressin 6. PAFIB; had some PAFIB with RVR yesterday. Given Dig without significant response. Amiodarone gtt initiated. Maintaining SR 7. LG 8. ETOH abuse 9. Acute respiratory failure; s/p intubation 10. GI bleed; EGD showed possible dieulafoy's versus other with some bleeding that was clipped, no varices noted. 10. Hypokalemia 12. Elevated LFTs Recommendations Critically ill Warfarin therapy on hold; monitor for bleeding PPI gtt. Pressor support as warranted Supportive care ANN-MARIE CARY MD 12/25/182053: CARDIO Progress Notes Assessment Assessment Patient seen and examined. Agree with [employer]UC[employer]'s assessment and plan. PAF presently SR Still needing pressor support Continue treatment of GIB per gastroenterology team Warfarin on hold per their recommendations MIS GASPAR APRN Dec 25, 2018 15:46 ANN-MARIE CARY MD Dec 25, 2018 20:54
[2018-12-25] MEDS ORDERED: AMIODARONE 900 MG in IV DEXTROSE 5% 500 ML IV PRN ×2 (20:00→20:15)
[2018-12-25] MEDS ORDERED: DEXTROSE 70% IV SCH ×10 (22:00)
[2018-12-25] MEDS ORDERED: TOTAL PARENTERAL NUTRITION IV SCH ×10 (22:00)
[2018-12-25] MEDS ORDERED: [UNRECOGNIZED DRUG - OTHER] IV SCH ×10 (22:00)
[2018-12-25] MEDS ORDERED: AMINO ACID IV SCH ×10 (22:00)
[2018-12-25 22:39] LABS: HEMATOCRIT 29.1 % (39.0-53.0); RED BLOOD COUNT 3.34 x10^6/uL (4.30-5.70); RED CELL DISTRIBUTION WIDTH 16.4 % (11.5-14.5); WHITE BLOOD COUNT 9.6 x10^3/uL (4.0-11.0)
[2018-12-25 22:41] LABS: HEMOGLOBIN 9.8 g/dL (13.0-17.5)
[2018-12-26] VITALS (27 sets, daily range): BP systolic 86–177; BP diastolic 53–100
[2018-12-26] MEDS: PANTOPRAZOLE SODIUM IV DRIP 80 MG in IV NORMAL SALINE 100ML 100 ML IV SCH ×2 (03:50→13:23)
[2018-12-26] MEDS: hydrALAZINE 20 MG/ML VIAL. IVP SCH ×5 (06:00→23:47)
[2018-12-26] MEDS: ENALAPRILAT 1.25 MG/ML VIAL. IVP SCH ×3 (06:00→22:09)
[2018-12-26] MEDS: CEFEPIME HCL IV Push 2 GM VIAL. IVP SCH ×3 (06:14→21:57)
[2018-12-26 06:29] LABS: MAGNESIUM 2.2 mg/dL (1.8-2.4); PHOSPHORUS 2.4 mg/dL (2.6-4.7)
--- NOTE | 2018-12-26 06:35 | PDOC ---
Infectious Disease Note Subjective Subjective intubated/sedated ROS ROS unable to obtain Vital Sign Vital Signs Vital Signs Date Time Temp Pulse Resp B/P (MAP) Pulse Ox O2 Delivery O2 Flow Rate FiO2 12/26/18 06:15 16 99 Ventilator 2.0 12/26/18 05:00 65 86/53 (64) 12/26/18 04:00 98.6 98.6 Physical Exam PHYSICAL EXAM GENERAL: Intubated and sedated HEENT: Pupils are equally round and reactive. Oropharynx is pink and dry. NECK: Supple. LUNGS: Clear to auscultation. HEART: S1, S2. ABDOMEN: Obese, soft, and nontender with bowel sounds present. Rectal tube : Peng EXTREMITIES: No gross edema or cyanosis. Mittens SKIN: Warm to touch. No signs of rash.some healing scraps/echymosis NEUROLOGIC: sedated IV: RUE PICC Labs Lab Laboratory Tests Test 12/25/18 06:30 12/25/18 08:00 12/25/18 11:32 12/25/18 14:00 Sodium Level 152 mmol/L (136-145) Potassium Level 3.0 mmol/L (3.5-5.1) Chloride Level 119 mmol/L (98-107) Carbon Dioxide Level 25 mmol/L (21-32) Anion Gap 8 (6-14) Blood Urea Nitrogen 41 mg/dL (8-26) Creatinine 1.2 mg/dL (0.7-1.3) Estimated GFR (Cockcroft-Gault) 62.4 BUN/Creatinine Ratio 34 (6-20) Glucose Level 133 mg/dL (70-99) Calcium Level 7.7 mg/dL (8.5-10.1) Magnesium Level 1.9 mg/dL (1.8-2.4) Total Bilirubin 0.7 mg/dL (0.2-1.0) Aspartate Amino Transf (AST/SGOT) 1390 U/L (15-37) Alanine Aminotransferase (ALT/SGPT) 1059 U/L (16-63) Alkaline Phosphatase 27 U/L (46-116) Total Protein 4.9 g/dL (6.4-8.2) Albumin 2.6 g/dL (3.4-5.0) Albumin/Globulin Ratio 1.1 (1.0-1.7) O2 Saturation 97 % (92-99) Arterial Blood pH 7.47 (7.35-7.45) Arterial Blood pCO2 at Patient Temp 28 mmHg (35-46) Arterial Blood pO2 at Patient Temp 93 mmHg (75-108) Arterial Blood HCO3 20 mmol/L (21-28) Arterial Blood Base Excess -3 mmol/L (-3-3) FiO2 40 Lactic Acid Level 0.9 mmol/L (0.4-2.0) White Blood Count 8.5 x10^3/uL (4.0-11.0) Red Blood Count 2.32 x10^6/uL (4.30-5.70) Hemoglobin 6.8 g/dL (13.0-17.5) Hematocrit 20.2 % (39.0-53.0) Mean Corpuscular Volume 87 fL (79-100) Mean Corpuscular Hemoglobin 29 pg (25-35) Mean Corpuscular Hemoglobin Concent 34 g/dL (31-37) Red Cell Distribution Width 17.7 % (11.5-14.5) Platelet Count 168 x10^3/uL (140-400) Test 12/25/18 22:15 White Blood Count 9.6 x10^3/uL (4.0-11.0) Red Blood Count 3.34 x10^6/uL (4.30-5.70) Hemoglobin 9.8 g/dL (13.0-17.5) Hematocrit 29.1 % (39.0-53.0) Mean Corpuscular Volume 87 fL (79-100) Mean Corpuscular Hemoglobin 30 pg (25-35) Mean Corpuscular Hemoglobin Concent 34 g/dL (31-37) Red Cell Distribution Width 16.4 % (11.5-14.5) Platelet Count 180 x10^3/uL (140-400) Micro Microbiology 12/20/18 Blood Culture - Preliminary, Resulted NO GROWTH AFTER 1 DAY Objective Assessment UGI bleed s/p EGD 12/24 - Non-variceal bleeding, distal esophagus. Inflammatory/Dieulafoy possible, aggravated by coagulopathy. S/P PRBCs 12/24 12/25 Acute Resp failure - intubated 12/24 - blood seen on intubation Afib on Amiodarone Transaminitis - worse today ? reactive vs med/TPN vs other - nml lipase Fever ? aspiration, PRBCs, infection -better Leukocytosis - better - nml lactic Suspected aspiration Sinusitis Dysphagia failed bedside swallow Recent Alcohol withdrawal s/p fall while intoxicated ? seizure Coagualopathy - Appreciated Heme eval Valvular disorder - Aortic stenosis s/p mechanical aortic valve - cults neg CAD Plan Plan of Care D/c'd Zosyn/doxy 12/20 - 12/24 F/u repeat Blood cults Cont Cefepime/Flagyl/Dapto/Micafungin 12/24 cont for now - monitor resp status if worsens may need additional coverage as Dapto does not cover pneumonia but likely aspiration F/u labs and cults Electrolytes per primary Transaminitis per GI D/w nursing Remains Critically ill ANJU HAMILTON MD Dec 26, 2018 06:35
[2018-12-26 06:39] LABS: PROTHROMBIN TIME PATIENT 15.9 SEC (11.7-14.0)
[2018-12-26 07:04] LABS: ALBUMIN 2.5 g/dL (3.4-5.0); CALCIUM 8.4 mg/dL (8.5-10.1); CREATININE 0.9 mg/dL (0.7-1.3); POTASSIUM 3.9 mmol/L (3.5-5.1); TOTAL BILIRUBIN 0.5 mg/dL (0.2-1.0); TOTAL PROTEIN 4.9 g/dL (6.4-8.2)
[2018-12-26 07:25] LABS: HEMATOCRIT 29.4 % (39.0-53.0); HEMOGLOBIN 9.9 g/dL (13.0-17.5); RED BLOOD COUNT 3.34 x10^6/uL (4.30-5.70); RED CELL DISTRIBUTION WIDTH 16.8 % (11.5-14.5); WHITE BLOOD COUNT 8.5 x10^3/uL (4.0-11.0)
--- NOTE | 2018-12-26 07:41 | RAD ---
EXAM: CHEST ONE VIEW. HISTORY: Respiratory failure, intubated. COMPARISON: 12/25/2018. FINDINGS: A frontal view of the chest is obtained. An endotracheal tube has its tip 6 cm above the colleen. A right arm PICC line has its tip in the superior cavoatrial junction. There are changes of median sternotomy and aortic valve replacement. There are small posteriorly layering pleural effusions on the left greater than right with associated atelectasis. There is no pneumothorax. The heart is not enlarged. There are atherosclerotic calcifications of the aorta. IMPRESSION: 1. Small posteriorly layering pleural effusions with basilar atelectasis. Electronically signed by: Tatyana Doe MD (12/26/2018 7:38 AM) [facility]
[2018-12-26] MEDS: POTASSIUM CHLORIDE 20 MEQ TABLET.ER. PO SCH (08:00)
[2018-12-26] MEDS: IPRATRPIUM/ALBUTEROL 0.5/2.5MG 3 ML NEBU. NEB SCH ×4 (08:15→19:39)
[2018-12-26 08:27] LABS: BASE EXCESS ABG -3 mmol/L (-3-3); HCO3 ABG 22 mmol/L (21-28); PCO2 ABG 38 mmHg (35-46); PO2 ABG 102 mmHg (75-108); SAT O2 ABG 97 % (92-99)
[2018-12-26 08:29] LABS: FIO2 ABG 35%
[2018-12-26] MEDS: METOPROLOL TART IMMED RELEASE 25 MG TABLET. PO SCH ×2 (09:00→20:52)
[2018-12-26] MEDS: CALCIUM CARBONATE 500 MG TABLET PO SCH ×3 (09:00→17:56)
[2018-12-26] MEDS: ELECTROLYTE (ICU) PROTOCOL. MC SCH (09:00)
[2018-12-26] MEDS: LORazepam 1 MG TABLET PO SCH ×2 (09:00→20:52)
--- NOTE | 2018-12-26 09:15 | PDOC ---
SUBJECTIVE Subjective S: awake, on versed but opening eyes, still tired though, no obvious bleeding but dark stool O: Gen: awake, intubated, resting in bed Resp: on vent Neuro: opening eyes, responding to painful stimuli (RT suction) Labs: Hb 9.9, plt 184, wbc nl PTT nl fibrinogen nl INR 1.3 Cr 0.9 ferr 786, sat 22, TIBC low A/P: He is a 58-year-old man w/ h/o alcoholism, admitted while inebriated post fall w/ scalp laceration and hyponatremia on admit s/p clipping of UGI bleed noted while on warfarin for history of mechanical heart valve, intubated and still on vasopressin in the ICU. GI bleed: UGI bleed appears stopped, on PPI, would keep a close eye on CBCs, GI is involved, s/p 6 x rbcs last 10 Oct w/ good response and 4 x FFP Coagulopathy: Due to Coumadin, reversed Fever and elevated pro-calcitonin, ID is involved and he is on multiple antimicrobials Respiratory distress: He is intubated and pulmonary is following Mechanical heart valve: Coumadin on hold with recent GI bleed, cardiology is involved, do believe it is likely ok to start hep gtt, would hold lovenox or coumadin at the moment til we know bleed won't recur post starting AC, INR 1.3 today, s/p vit K and FFP hypoK: Defer to primary Neuro: neuro is involved, appears alert today Please do not hesitate to call with any further questions over the weekend, thank you kindly. OBJECTIVE Vital Signs Vital Signs Date Time Temp Pulse Resp B/P (MAP) Pulse Ox O2 Delivery O2 Flow Rate FiO2 12/26/18 08:50 99 Ventilator 12/26/18 08:15 99 Ventilator 12/26/18 06:15 16 99 Ventilator 2.0 12/26/18 06:00 57 16 110/62 (78) 98 Ventilator 12/26/18 05:58 99 Ventilator 12/26/18 05:00 65 15 86/53 (64) 98 Ventilator 12/26/18 04:34 99 Ventilator 12/26/18 04:00 Mechanical Ventilator 12/26/18 04:00 98.6 74 15 101/60 (74) 97 Ventilator 98.6 12/26/18 03:00 78 16 147/76 (99) 98 Ventilator 12/26/18 02:03 99 Ventilator 12/26/18 02:00 82 16 153/70 (97) 100 Ventilator 12/26/18 01:00 66 16 123/69 (87) 99 Ventilator 12/26/18 00:00 Mechanical Ventilator 12/26/18 00:00 69 116/62 12/26/18 00:00 98.8 64 16 116/62 (80) 98 Ventilator 98.8 12/25/18 23:46 99 Ventilator 12/25/18 23:19 16 98 Ventilator 2.0 12/25/18 23:00 62 16 116/61 (79) 98 Ventilator 12/25/18 22:49 16 97 Ventilator 2.0 12/25/18 22:00 65 16 131/70 (90) 97 Ventilator 12/25/18 21:38 77 139/73 12/25/18 21:00 67 16 133/72 (92) 97 Ventilator 12/25/18 20:33 98 Ventilator 12/25/18 20:00 Mechanical Ventilator 12/25/18 20:00 98.6 66 16 130/72 (91) 98 Ventilator 98.6 12/25/18 19:00 66 15 123/71 (88) 98 Ventilator 12/25/18 18:14 98.4 69 16 120/67 98.4 12/25/18 18:00 72 16 120/67 (84) 97 Ventilator 12/25/18 17:30 98.8 72 19 127/67 98.8 12/25/18 17:18 98 Ventilator 12/25/18 17:15 98.9 74 18 116/66 98.9 12/25/18 17:00 76 18 119/71 (87) 98 Ventilator 12/25/18 16:05 99.1 76 18 112/53 99.1 12/25/18 16:05 97 2.0 12/25/18 16:00 Mechanical Ventilator 12/25/18 16:00 98.9 80 19 137/59 (85) 97 Ventilator 98.9 12/25/18 15:46 99.4 84 18 137/59 99.4 12/25/18 15:35 99 2.0 12/25/18 14:41 99 Ventilator 12/25/18 14:03 98 Ventilator 12/25/18 14:00 74 18 92/52 (65) 100 Ventilator 12/25/18 13:00 78 22 103/53 (70) 98 Ventilator 12/25/18 12:00 Mechanical Ventilator 12/25/18 12:00 99.0 82 22 114/54 (74) 98 Ventilator 99.0 12/25/18 11:45 98 Ventilator 12/25/18 11:00 78 22 98/58 (71) 98 Ventilator 12/25/18 10:00 82 22 100/56 (71) 97 Ventilator I & O Intake and Output 12/26/18 06:59 Intake Total 1619 ml Output Total 2825 ml Balance -1206 ml IV Total 1619 ml Output Urine Total 2775 ml Stool Total 50 ml # Bowel Movements 1 COMMENT Lab Laboratory Tests Test 12/25/18 11:32 12/25/18 14:00 12/25/18 22:15 12/26/18 05:40 Lactic Acid Level 0.9 mmol/L (0.4-2.0) White Blood Count 8.5 x10^3/uL (4.0-11.0) 9.6 x10^3/uL (4.0-11.0) 8.5 x10^3/uL (4.0-11.0) Red Blood Count 2.32 x10^6/uL (4.30-5.70) 3.34 x10^6/uL (4.30-5.70) 3.34 x10^6/uL (4.30-5.70) Hemoglobin 6.8 g/dL (13.0-17.5) 9.8 g/dL (13.0-17.5) 9.9 g/dL (13.0-17.5) Hematocrit 20.2 % (39.0-53.0) 29.1 % (39.0-53.0) 29.4 % (39.0-53.0) Mean Corpuscular Volume 87 fL (79-100) 87 fL (79-100) 88 fL (79-100) Mean Corpuscular Hemoglobin 29 pg (25-35) 30 pg (25-35) 30 pg (25-35) Mean Corpuscular Hemoglobin Concent 34 g/dL (31-37) 34 g/dL (31-37) 34 g/dL (31-37) Red Cell Distribution Width 17.7 % (11.5-14.5) 16.4 % (11.5-14.5) 16.8 % (11.5-14.5) Platelet Count 168 x10^3/uL (140-400) 180 x10^3/uL (140-400) 184 x10^3/uL (140-400) Prothrombin Time 15.9 SEC (11.7-14.0) Prothromb Time International Ratio 1.3 (0.8-1.1) Sodium Level 154 mmol/L (136-145) Potassium Level 3.9 mmol/L (3.5-5.1) Chloride Level 120 mmol/L (98-107) Carbon Dioxide Level 26 mmol/L (21-32) Anion Gap 8 (6-14) Blood Urea Nitrogen 30 mg/dL (8-26) Creatinine 0.9 mg/dL (0.7-1.3) Estimated GFR (Cockcroft-Gault) 87.0 BUN/Creatinine Ratio 33 (6-20) Glucose Level 152 mg/dL (70-99) Calcium Level 8.4 mg/dL (8.5-10.1) Phosphorus Level 2.4 mg/dL (2.6-4.7) Magnesium Level 2.2 mg/dL (1.8-2.4) Total Bilirubin 0.5 mg/dL (0.2-1.0) Aspartate Amino Transf (AST/SGOT) 519 U/L (15-37) Alanine Aminotransferase (ALT/SGPT) 982 U/L (16-63) Alkaline Phosphatase 32 U/L (46-116) Total Protein 4.9 g/dL (6.4-8.2) Albumin 2.5 g/dL (3.4-5.0) Albumin/Globulin Ratio 1.0 (1.0-1.7) Triglycerides Level 50 mg/dL (0-150) Test 12/26/18 08:00 O2 Saturation 97 % (92-99) Arterial Blood pH 7.38 (7.35-7.45) Arterial Blood pCO2 at Patient Temp 38 mmHg (35-46) Arterial Blood pO2 at Patient Temp 102 mmHg (75-108) Arterial Blood HCO3 22 mmol/L (21-28) Arterial Blood Base Excess -3 mmol/L (-3-3) FiO2 35% BENNY ROCHA MD Dec 26, 2018 09:15
[2018-12-26] MEDS: SCOPOLAMINE 1.5MG PATCH. TD SCH (09:29)
[2018-12-26] MEDS: NICOTINE 21MG PATCH. TD SCH (09:29)
--- NOTE | 2018-12-26 10:22 | RAD ---
EXAM: CT HEAD WITHOUT CONTRAST. HISTORY: Altered mental status, unresponsive. TECHNIQUE: Computed tomography of the head was performed without intravenous contrast. *One or more of the following individualized dose reduction techniques were utilized for this examination: 1. Automated exposure control. 2. Adjustment of the mA and/or kV according to patient size. 3. Use of iterative reconstruction technique. COMPARISON: 12/10/2018. FINDINGS: There is no intracranial hemorrhage. There is hypoattenuation within the bilateral occipital heller matter and white matter. Lesser foci are seen within the right frontal lobe and left greater than right parietal lobes. There is questionable hypoattenuation within the agnieszka. Prominence of the lateral ventricles and hemispheric sulci indicates mild atrophy. There is moderate mucosal thickening throughout the paranasal sinuses. The orbits are unremarkable. The temporal bones are unremarkable. The calvarium reveals no suspicious lesions. IMPRESSION: 1. Large regions of hypoattenuation within both occipital lobes, and to a lesser degree within the frontal and parietal lobes and agnieszka. Correlate for processes such as posterior reversible encephalopathy syndrome, versus multiple infarcts. MRI is recommended for further evaluation. These findings were called to Sarah Beth by Luke Doe on 12/26/2018 at 10:16 AM. Electronically signed by: Tatyana Doe MD (12/26/2018 10:20 AM) [facility]
--- NOTE | 2018-12-26 10:33 | PDOC ---
G I PROGRESS NOTE Reason for Follow-up GI bleed s/p endoscopic therapy Subjective No further bleeding Physical Exam Lungs decreased BS CV II? JUAN CARLOS ABD +BS, soft, nontender Review of Relevant I have reviewed the following items robert (where applicable) has been applied. Labs Laboratory Tests Test 12/24/18 10:45 12/24/18 13:17 12/24/18 13:40 12/24/18 15:05 White Blood Count 16.6 x10^3/uL (4.0-11.0) Red Blood Count 2.79 x10^6/uL (4.30-5.70) Hemoglobin 7.2 g/dL (13.0-17.5) Hematocrit 22.8 % (39.0-53.0) Mean Corpuscular Volume 82 fL (79-100) Mean Corpuscular Hemoglobin 26 pg (25-35) Mean Corpuscular Hemoglobin Concent 31 g/dL (31-37) Red Cell Distribution Width 20.5 % (11.5-14.5) Platelet Count 470 x10^3/uL (140-400) Neutrophils (%) (Auto) 86 % (31-73) Lymphocytes (%) (Auto) 7 % (24-48) Monocytes (%) (Auto) 6 % (0-9) Eosinophils (%) (Auto) 0 % (0-3) Basophils (%) (Auto) 0 % (0-3) Neutrophils # (Auto) 14.3 x10^3/uL (1.8-7.7) Lymphocytes # (Auto) 1.2 x10^3/uL (1.0-4.8) Monocytes # (Auto) 1.1 x10^3/uL (0.0-1.1) Eosinophils # (Auto) 0.0 x10^3/uL (0.0-0.7) Basophils # (Auto) 0.1 x10^3/uL (0.0-0.2) Segmented Neutrophils % 86 % (35-66) Band Neutrophils % 3 % (0-9) Lymphocytes % 7 % (24-48) Monocytes % 4 % (0-10) Platelet Estimate Adequate (ADEQUATE) Anisocytosis Present Sodium Level 142 mmol/L (136-145) Potassium Level 5.0 mmol/L (3.5-5.1) Chloride Level 109 mmol/L (98-107) Carbon Dioxide Level 15 mmol/L (21-32) Anion Gap 18 (6-14) Blood Urea Nitrogen 55 mg/dL (8-26) Creatinine 1.7 mg/dL (0.7-1.3) Estimated GFR (Cockcroft-Gault) 41.8 BUN/Creatinine Ratio 32 (6-20) Glucose Level 237 mg/dL (70-99) Calcium Level 8.1 mg/dL (8.5-10.1) Magnesium Level 1.9 mg/dL (1.8-2.4) Total Bilirubin 0.4 mg/dL (0.2-1.0) Aspartate Amino Transf (AST/SGOT) 21 U/L (15-37) Alanine Aminotransferase (ALT/SGPT) 18 U/L (16-63) Alkaline Phosphatase 32 U/L (46-116) Ammonia 92 mcmol/L (11-34) Total Protein 4.6 g/dL (6.4-8.2) Albumin 2.3 g/dL (3.4-5.0) Albumin/Globulin Ratio 1.0 (1.0-1.7) Procalcitonin 0.64 ng/mL (0.00-0.10) O2 Saturation 98 % (92-99) Arterial Blood pH 7.38 (7.35-7.45) Arterial Blood pCO2 at Patient Temp 21 mmHg (35-46) Arterial Blood pO2 at Patient Temp 120 mmHg (75-108) Arterial Blood HCO3 12 mmol/L (21-28) Arterial Blood Base Excess -12 mmol/L (-3-3) FiO2 40 Glucose (Fingerstick) 157 mg/dL (70-99) Prothrombin Time 34.1 SEC (11.7-14.0) Prothromb Time International Ratio 3.4 (0.8-1.1) Lactic Acid Level 5.2 mmol/L (0.4-2.0) Iron Level 39 ug/dL (65-175) Total Iron Binding Capacity 176 ug/dL (250-450) Iron Saturation 22 % (15-34) Ferritin 786 ng/mL (26-388) Test 12/24/18 19:50 12/24/18 19:59 12/24/18 21:00 12/25/18 05:45 O2 Saturation 97 % (92-99) Arterial Blood pH 7.46 (7.35-7.45) Arterial Blood pCO2 at Patient Temp 25 mmHg (35-46) Arterial Blood pO2 at Patient Temp 107 mmHg (75-108) Arterial Blood HCO3 17 mmol/L (21-28) Arterial Blood Base Excess -6 mmol/L (-3-3) FiO2 40 Urine Collection Type Unknown Urine Color Yellow Urine Clarity Clear Urine pH 5.5 Urine Specific [place] 1.020 Urine Protein 30 mg/dL (NEG-TRACE) Urine Glucose (UA) 250 mg/dL (NEG) Urine Ketones (Stick) Negative mg/dL (NEG) Urine Blood Moderate (NEG) Urine Nitrite Negative (NEG) Urine Bilirubin Negative (NEG) Urine Urobilinogen Dipstick 0.2 mg/dL (0.2 mg/dL) Urine Leukocyte Esterase Negative (NEG) Urine RBC Occ /HPF (0-2) Urine WBC 1-4 /HPF (0-4) Urine Transitional Epithelial Cells Occ /LPF Urine Renal Epithelial Cells Occ /LPF Urine Amorphous Sediment Present /HPF Urine Bacteria 0 /HPF (0-FEW) Urine Hyaline Casts Few /HPF Urine Granular Casts Moderate /HPF Urine Mucus Mod /LPF White Blood Count 12.8 x10^3/uL (4.0-11.0) 10.8 x10^3/uL (4.0-11.0) Red Blood Count 2.39 x10^6/uL (4.30-5.70) 2.64 x10^6/uL (4.30-5.70) Hemoglobin 6.7 g/dL (13.0-17.5) 7.9 g/dL (13.0-17.5) Hematocrit 19.9 % (39.0-53.0) 22.9 % (39.0-53.0) Mean Corpuscular Volume 84 fL (79-100) 87 fL (79-100) Mean Corpuscular Hemoglobin 28 pg (25-35) 30 pg (25-35) Mean Corpuscular Hemoglobin Concent 34 g/dL (31-37) 35 g/dL (31-37) Red Cell Distribution Width 19.6 % (11.5-14.5) 17.5 % (11.5-14.5) Platelet Count 234 x10^3/uL (140-400) 195 x10^3/uL (140-400) Prothrombin Time 22.7 SEC (11.7-14.0) 19.5 SEC (11.7-14.0) Prothromb Time International Ratio 2.0 (0.8-1.1) 1.7 (0.8-1.1) Activated Partial Thromboplast Time 33 SEC (24-38) Fibrinogen 298 mg/dL (200-440) Neutrophils (%) (Auto) 82 % (31-73) Lymphocytes (%) (Auto) 10 % (24-48) Monocytes (%) (Auto) 8 % (0-9) Eosinophils (%) (Auto) 0 % (0-3) Basophils (%) (Auto) 1 % (0-3) Neutrophils # (Auto) 8.8 x10^3/uL (1.8-7.7) Lymphocytes # (Auto) 1.1 x10^3/uL (1.0-4.8) Monocytes # (Auto) 0.8 x10^3/uL (0.0-1.1) Eosinophils # (Auto) 0.0 x10^3/uL (0.0-0.7) Basophils # (Auto) 0.1 x10^3/uL (0.0-0.2) Ammonia 13 mcmol/L (11-34) Lipase 35 U/L (73-393) Test 12/25/18 06:30 12/25/18 08:00 12/25/18 11:32 12/25/18 14:00 Sodium Level 152 mmol/L (136-145) Potassium Level 3.0 mmol/L (3.5-5.1) Chloride Level 119 mmol/L (98-107) Carbon Dioxide Level 25 mmol/L (21-32) Anion Gap 8 (6-14) Blood Urea Nitrogen 41 mg/dL (8-26) Creatinine 1.2 mg/dL (0.7-1.3) Estimated GFR (Cockcroft-Gault) 62.4 BUN/Creatinine Ratio 34 (6-20) Glucose Level 133 mg/dL (70-99) Calcium Level 7.7 mg/dL (8.5-10.1) Magnesium Level 1.9 mg/dL (1.8-2.4) Total Bilirubin 0.7 mg/dL (0.2-1.0) Aspartate Amino Transf (AST/SGOT) 1390 U/L (15-37) Alanine Aminotransferase (ALT/SGPT) 1059 U/L (16-63) Alkaline Phosphatase 27 U/L (46-116) Total Protein 4.9 g/dL (6.4-8.2) Albumin 2.6 g/dL (3.4-5.0) Albumin/Globulin Ratio 1.1 (1.0-1.7) O2 Saturation 97 % (92-99) Arterial Blood pH 7.47 (7.35-7.45) Arterial Blood pCO2 at Patient Temp 28 mmHg (35-46) Arterial Blood pO2 at Patient Temp 93 mmHg (75-108) Arterial Blood HCO3 20 mmol/L (21-28) Arterial Blood Base Excess -3 mmol/L (-3-3) FiO2 40 Lactic Acid Level 0.9 mmol/L (0.4-2.0) White Blood Count 8.5 x10^3/uL (4.0-11.0) Red Blood Count 2.32 x10^6/uL (4.30-5.70) Hemoglobin 6.8 g/dL (13.0-17.5) Hematocrit 20.2 % (39.0-53.0) Mean Corpuscular Volume 87 fL (79-100) Mean Corpuscular Hemoglobin 29 pg (25-35) Mean Corpuscular Hemoglobin Concent 34 g/dL (31-37) Red Cell Distribution Width 17.7 % (11.5-14.5) Platelet Count 168 x10^3/uL (140-400) Test 12/25/18 22:15 12/26/18 05:40 12/26/18 08:00 White Blood Count 9.6 x10^3/uL (4.0-11.0) 8.5 x10^3/uL (4.0-11.0) Red Blood Count 3.34 x10^6/uL (4.30-5.70) 3.34 x10^6/uL (4.30-5.70) Hemoglobin 9.8 g/dL (13.0-17.5) 9.9 g/dL (13.0-17.5) Hematocrit 29.1 % (39.0-53.0) 29.4 % (39.0-53.0) Mean Corpuscular Volume 87 fL (79-100) 88 fL (79-100) Mean Corpuscular Hemoglobin 30 pg (25-35) 30 pg (25-35) Mean Corpuscular Hemoglobin Concent 34 g/dL (31-37) 34 g/dL (31-37) Red Cell Distribution Width 16.4 % (11.5-14.5) 16.8 % (11.5-14.5) Platelet Count 180 x10^3/uL (140-400) 184 x10^3/uL (140-400) Prothrombin Time 15.9 SEC (11.7-14.0) Prothromb Time International Ratio 1.3 (0.8-1.1) Sodium Level 154 mmol/L (136-145) Potassium Level 3.9 mmol/L (3.5-5.1) Chloride Level 120 mmol/L (98-107) Carbon Dioxide Level 26 mmol/L (21-32) Anion Gap 8 (6-14) Blood Urea Nitrogen 30 mg/dL (8-26) Creatinine 0.9 mg/dL (0.7-1.3) Estimated GFR (Cockcroft-Gault) 87.0 BUN/Creatinine Ratio 33 (6-20) Glucose Level 152 mg/dL (70-99) Calcium Level 8.4 mg/dL (8.5-10.1) Phosphorus Level 2.4 mg/dL (2.6-4.7) Magnesium Level 2.2 mg/dL (1.8-2.4) Total Bilirubin 0.5 mg/dL (0.2-1.0) Aspartate Amino Transf (AST/SGOT) 519 U/L (15-37) Alanine Aminotransferase (ALT/SGPT) 982 U/L (16-63) Alkaline Phosphatase 32 U/L (46-116) Total Protein 4.9 g/dL (6.4-8.2) Albumin 2.5 g/dL (3.4-5.0) Albumin/Globulin Ratio 1.0 (1.0-1.7) Triglycerides Level 50 mg/dL (0-150) O2 Saturation 97 % (92-99) Arterial Blood pH 7.38 (7.35-7.45) Arterial Blood pCO2 at Patient Temp 38 mmHg (35-46) Arterial Blood pO2 at Patient Temp 102 mmHg (75-108) Arterial Blood HCO3 22 mmol/L (21-28) Arterial Blood Base Excess -3 mmol/L (-3-3) FiO2 35% Laboratory Tests Test 12/25/18 11:32 12/25/18 14:00 12/25/18 22:15 12/26/18 05:40 Lactic Acid Level 0.9 mmol/L (0.4-2.0) White Blood Count 8.5 x10^3/uL (4.0-11.0) 9.6 x10^3/uL (4.0-11.0) 8.5 x10^3/uL (4.0-11.0) Red Blood Count 2.32 x10^6/uL (4.30-5.70) 3.34 x10^6/uL (4.30-5.70) 3.34 x10^6/uL (4.30-5.70) Hemoglobin 6.8 g/dL (13.0-17.5) 9.8 g/dL (13.0-17.5) 9.9 g/dL (13.0-17.5) Hematocrit 20.2 % (39.0-53.0) 29.1 % (39.0-53.0) 29.4 % (39.0-53.0) Mean Corpuscular Volume 87 fL (79-100) 87 fL (79-100) 88 fL (79-100) Mean Corpuscular Hemoglobin 29 pg (25-35) 30 pg (25-35) 30 pg (25-35) Mean Corpuscular Hemoglobin Concent 34 g/dL (31-37) 34 g/dL (31-37) 34 g/dL (31-37) Red Cell Distribution Width 17.7 % (11.5-14.5) 16.4 % (11.5-14.5) 16.8 % (11.5-14.5) Platelet Count 168 x10^3/uL (140-400) 180 x10^3/uL (140-400) 184 x10^3/uL (140-400) Prothrombin Time 15.9 SEC (11.7-14.0) Prothromb Time International Ratio 1.3 (0.8-1.1) Sodium Level 154 mmol/L (136-145) Potassium Level 3.9 mmol/L (3.5-5.1) Chloride Level 120 mmol/L (98-107) Carbon Dioxide Level 26 mmol/L (21-32) Anion Gap 8 (6-14) Blood Urea Nitrogen 30 mg/dL (8-26) Creatinine 0.9 mg/dL (0.7-1.3) Estimated GFR (Cockcroft-Gault) 87.0 BUN/Creatinine Ratio 33 (6-20) Glucose Level 152 mg/dL (70-99) Calcium Level 8.4 mg/dL (8.5-10.1) Phosphorus Level 2.4 mg/dL (2.6-4.7) Magnesium Level 2.2 mg/dL (1.8-2.4) Total Bilirubin 0.5 mg/dL (0.2-1.0) Aspartate Amino Transf (AST/SGOT) 519 U/L (15-37) Alanine Aminotransferase (ALT/SGPT) 982 U/L (16-63) Alkaline Phosphatase 32 U/L (46-116) Total Protein 4.9 g/dL (6.4-8.2) Albumin 2.5 g/dL (3.4-5.0) Albumin/Globulin Ratio 1.0 (1.0-1.7) Triglycerides Level 50 mg/dL (0-150) Test 12/26/18 08:00 O2 Saturation 97 % (92-99) Arterial Blood pH 7.38 (7.35-7.45) Arterial Blood pCO2 at Patient Temp 38 mmHg (35-46) Arterial Blood pO2 at Patient Temp 102 mmHg (75-108) Arterial Blood HCO3 22 mmol/L (21-28) Arterial Blood Base Excess -3 mmol/L (-3-3) FiO2 35% Microbiology 12/24/18 Blood Culture - Preliminary, Resulted NO GROWTH AFTER 2 DAYS 12/20/18 Urine Culture - Final, Complete 12/20/18 Urine Culture Result 1 (AMARA) - Final, Complete Medications Current Medications Fentanyl Citrate (Fentanyl 2ml Vial) 50 mcg 1X ONCE IV Last administered on 12/10/18at 20:03; Start 12/10/18 at 19:15; Stop 12/10/18 at 19:16; Status DC Iohexol (Omnipaque 300 Mg/ml) 75 ml 1X ONCE IV Last administered on 9/25/19at 19:43; Start 12/10/18 at 19:15; Stop 12/10/18 at 19:16; Status DC Sodium Chloride 1,000 ml @ 1,000 mls/hr 1X ONCE IV Last administered on 12/10/18at 19:45; Start 12/10/18 at 19:45; Stop 12/10/18 at 20:44; Status DC Morphine Sulfate (Morphine Sulfate) 2 mg PRN Q2HR PRN IV PAIN Last administered on 12/11/18at 12:03; Start 12/10/18 at 20:15; Stop 12/11/18 at 20:14; Status DC Sodium Chloride 1,000 ml @ 100 mls/hr Q10H IV Last administered on 12/11/18at 08:10; Start 12/10/18 at 20:07; Stop 12/11/18 at 12:21; Status DC Diphtheria/ Tetanus/Acell Pertussis (Boostrix) 0.5 ml ONCE ONCE VAX IM Last administered on 12/10/18at 21:07; Start 12/10/18 at 20:15; Stop 12/10/18 at 20:16; Status DC Ondansetron HCl (Zofran) 4 mg PRN Q6HRS PRN IV NAUSEA/VOMITING 1ST CHOICE Last administered on 12/21/18 03:27; Start 12/11/18 at 05:30 Multivitamins (Thera M Plus) 1 tab DAILY PO Last administered on 12/12/18 08:14; Start 12/11/18 at 09:00; Stop 12/13/18 at 11:25; Status DC Folic Acid (Folic Acid) 1 mg DAILY PO Last administered on 12/12/18at 08:14; S tart 12/11/18 at 09:00; Stop 12/13/18 at 11:25; Status DC Chlordiazepoxide (Librium) 50 mg PRN Q1HR PRN PO For CIWA 8-14 2ND CHOICE Last administered on 12/18/18 18:03; Start 12/11/18 at 05:30 Chlordiazepoxide (Librium) 100 mg PRN Q1HR PRN PO For CIWA 15+ 2ND CHOICE Last administered on 12/13/18at 01:11; Start 12/11/18 at 05:30 Lorazepam (Ativan) 4 mg PRN Q1HR PRN PO For CIWA 8-14 Last administered on 12/13/18 02:48; Start 12/11/18 at 05:30 Lorazepam (Ativan) 8 mg PRN Q1HR PRN PO For CIWA 15 or greater; Start 12/11/18 at 05:30 Lorazepam (Ativan Inj) 2 mg PRN Q1HR PRN IV For CIWA 8-14 Last administered on 12/22/18 05:27; Start 12/11/18 at 05:30 Lorazepam (Ativan Inj) 4 mg PRN Q1HR PRN IV For CIWA 15 or greater Last administered on 12/24/18 02:18; Start 12/11/18 at 05:30 Haloperidol Lactate (Haldol Inj) 5 mg PRN Q4HRS PRN IVP Hallucinatns,Confusn,Delirium Last administered on 12/25/18 09:04; Start 12/11/18 at 05:30 Diphenhydramine HCl (Benadryl) 25 mg PRN Q15MIN PRN IVP EPS symptoms 2'Haldol admin Last administered on 12/18/18 03:44; Start 12/11/18 at 05:30 Clonidine HCl (Catapres) 0.1 mg PRN Q1HR PRN PO SBP > 180 or DBP > 100, MRX3; Start 12/11/18 at 05:30 Sodium Chloride 1,000 ml @ 60 mls/hr [id number] IV Last administered on 12/21/18 07:26; Start 12/11/18 at 13:00; Stop 12/22/18 at 14:53; Status DC Sodium Chloride 150 ml @ 50 mls/hr 1X ONCE IV Last administered on 12/11/18 13:48; Start 12/11/18 at 13:00; Stop 12/11/18 at 15:59; Status DC Lisinopril (Prinivil) 20 mg DAILY PO Last administered on 12/19/18 08:00; Start 12/11/18 at 14:00; Stop 12/21/18 at 15:19; Status DC Oxycodone/ Acetaminophen (Percocet 7.5/ 325) 1 tab PRN Q6HRS PRN PO MODERATE TO SEVERE PAIN Last administered on 10/4/19at 06:19; Start 12/11/18 at 13:30 Calcium Carbonate/ Glycine (Oscal) 500 mg TIDAFTMEAL PO Last administered on 12/19/18 17:22; Start 12/12/18 at 13:00 Ziprasidone (Geodon Im) 20 mg 1X ONCE IM ; Start 12/13/18 at 05:00; Stop 12/13/18 at 18:51; Status DC Lorazepam 100 mg/ Sodium Chloride 100 ml @ 2 mls/hr CONT PRN IV SEDATION Last administered on 12/13/18at 19:56; Start 12/13/18 at 07:00; Stop 12/18/18 at 16:33; Status DC Olanzapine (ZyPREXA IM) 10 mg PRN Q8HRS PRN IM AGITATION Last administered on 12/19/18at 00:05; Start 12/13/18 at 08:30 Olanzapine (ZyPREXA IM) 10 mg STK-MED ONCE IM ; Start 12/13/18 at 08:37; Stop 12/13/18 at 08:38; Status DC Fentanyl Citrate (Fentanyl 2ml Vial) 75 mcg 1X ONCE IV ; Start 12/13/18 at 09:45; Stop 12/13/18 at 19:20; Status DC Fentanyl Citrate (Fentanyl 2ml Vial) 100 mcg STK-MED ONCE .ROUTE ; Start 12/13/18 at 09:47; Stop 12/13/18 at 09:48; Status DC Fentanyl Citrate (Fentanyl 2ml Vial) 75 mcg PRN Q30MIN PRN IV PAIN Last administered on 12/22/18at 01:39; Start 12/13/18 at 10:00 Multivitamins 10 ml/Thiamine HCl 100 mg/Folic Acid 1 mg/Sodium Chloride 1,011.2 ml @ 100 mls/ hr DAILY IV Last administered on 12/18/18at 08:55; Start 12/14/18 at 12:00; Stop 12/18/18 at 19:07; Status DC Enoxaparin Sodium (Lovenox 80mg Syringe) 80 mg Q12HR SQ Last administered on 12/21/18at 07:50; Start 12/13/18 at 14:30; Stop 12/21/18 at 12:56; Status DC Warfarin Sodium (Coumadin Per Pharmacy) 1 each PRN DAILY PRN MC SEE COMMENTS Last administered on 12/24/18at 11:27; Start 12/13/18 at 14:15; Stop 12/24/18 at 16:10; Status DC Warfarin Sodium (Coumadin) 7.5 mg 1X WARF ONCE PO ; Start 12/13/18 at 16:00; Stop 12/13/18 at 16:01; Status DC Nicotine (Nicoderm Cq 21mg) 1 patch DAILY TD Last administered on 12/26/18at 09:29; Start 12/14/18 at 09:00 Dexmedetomidine HCl 400 mcg/ Sodium Chloride 100 ml @ 0 mls/hr CONT PRN IV PER PROTOCOL Last administered on 12/18/18at 00:12; Start 12/14/18 at 01:45; Stop 12/18/18 at 16:33; Status DC Sodium Chloride 500 ml @ 500 mls/hr 1X PRN PRN IV SEE COMMENTS; Start 12/14/18 at 01:45; Stop 12/20/18 at 11:56; Status DC Atropine Sulfate (ATROPINE 0.5mg SYRINGE) 0.5 mg PRN Q5MIN PRN IV SEE COMMENTS; Start 12/14/18 at 01:45; Stop 12/20/18 at 11:55; Status DC Nicotine (Nicoderm Cq 21mg) 1 patch STK-MED ONCE TD ; Start 12/14/18 at 01:57; Stop 12/14/18 at 01:57; Status DC Lorazepam (Ativan) 1 mg BID PO Last administered on 12/19/18at 08:00; Start 12/14/18 at 09:00 Warfarin Sodium (Coumadin) 5 mg DAILY16 PO ; Start 12/14/18 at 16:00; Stop 12/14/18 at 09:21; Status DC Warfarin Sodium (Coumadin) 7.5 mg 1X WARF ONCE PO ; Start 12/14/18 at 16:00; Stop 12/14/18 at 16:01; Status DC Enalaprilat (Vasotec Inj) 1.25 mg Q8HRS IVP Last administered on 12/23/18at 22:16; Start 12/14/18 at 15:00 Nicardipine HCl 50 mg/Sodium Chloride 250 ml @ 25 mls/hr CONT PRN IV SEE I/O RECORD Last administered on 12/16/18at 09:58; Start 12/14/18 at 17:45; Stop 12/18/18 at 16:33; Status DC Nicardipine HCl 50 mg/Sodium Chloride 250 ml @ 25 mls/hr CONT PRN IV SEE I/O RECORD; Start 12/14/18 at 18:00; Status UNV Warfarin Sodium (Coumadin) 7.5 mg 1X WARF ONCE PO ; Start 12/15/18 at 16:00; Stop 12/15/18 at 16:01; Status DC Warfarin Sodium (Coumadin - No Dose Today) 1 each 1X WARF ONCE MC ; Start 12/16/18 at 16:00; Stop 12/16/18 at 16:01; Status DC Warfarin Sodium (Coumadin) 7.5 mg 1X WARF ONCE PO Last administered on 12/18/18at 08:54; Start 12/17/18 at 16:00; Stop 12/17/18 at 16:01; Status DC Ceftriaxone Sodium (Rocephin) 1 gm Q24H IVP Last administered on 12/20/18at 12:08; Start 12/18/18 at 12:30; Stop 12/20/18 at 15:14; Status DC Metoprolol Tartrate (Lopressor) 25 mg BID PO Last administered on 12/19/18at 08:01; Start 12/18/18 at 12:30 Acetaminophen/ Codeine Phosphate (Tylenol #3) 1 tab PRN Q6HRS PRN PO PAIN MILD TO MOD; Start 12/18/18 at 12:00; Stop 12/18/18 at 12:55; Status DC Lactobacillus Rhamnosus (Culturelle) 1 cap BID PO Last administered on 12/19/18at 08:00; Start 12/18/18 at 21:00; Stop 12/24/18 at 11:17; Status DC Acetaminophen (Tylenol) 650 mg PRN Q6HRS PRN PO FEVER Last administered on 12/19/18at 17:23; Start 12/18/18 at 13:00 Warfarin Sodium (Coumadin) 7.5 mg 1X WARF ONCE PO Last administered on 12/18/18at 18:03; Start 12/18/18 at 16:00; Stop 12/18/18 at 16:11; Status DC Albuterol/ Ipratropium (Duoneb) 3 ml 1X ONCE NEB Last administered on 12/19/18at 07:15; Start 12/19/18 at 07:15; Stop 12/19/18 at 07:16; Status DC Ziprasidone (Geodon Im) 10 mg 1X ONCE IM Last administered on 12/19/18at 07:42; Start 12/19/18 at 07:15; Stop 12/19/18 at 07:16; Status DC Warfarin Sodium (Coumadin) 7.5 mg 1X WARF ONCE PO Last administered on 12/19/18at 17:23; Start 12/19/18 at 16:00; Stop 12/19/18 at 16:01; Status DC Potassium Chloride (Klor-Con) 40 meq 1X ONCE PO Last administered on 12/19/18at 16:12; Start 12/19/18 at 14:00; Stop 12/19/18 at 14:01; Status DC Potassium Chloride (Klor-Con) 20 meq DAILYWBKFT PO ; Start 12/20/18 at 08:00 Doxycycline Hyclate (Vibra-Tab) 100 mg BID PO Last administered on 12/19/18at 17:22; Start 12/19/18 at 17:30; Stop 12/19/18 at 17:57; Status DC Doxycycline Hyclate 100 mg/ Dextrose 100 ml @ 50 mls/hr Q12HR IV Last administered on 12/23/18at 22:17; Start 12/19/18 at 21:00; Stop 12/24/18 at 10:15; Status DC Metoprolol Tartrate (Lopressor Vial) 5 mg PRN Q6HRS PRN IVP HYPERTENSION Last administered on 12/24/18at 07:22; Start 12/19/18 at 18:00 Scopolamine (Transderm-Scop) 1 patch Q3DAYS TD Last administered on 12/26/18at 09:29; Start 12/20/18 at 09:00 Potassium Chloride/Water 100 ml @ 100 mls/hr Q1H IV Last administered on 12/20/18at 10:36; Start 12/20/18 at 06:00; Stop 12/20/18 at 09:59; Status DC Potassium Chloride (Klor-Con) 40 meq 1X ONCE PO ; Start 12/20/18 at 08:00; Stop 12/20/18 at 08:01; Status DC Acetaminophen (Tylenol Supp) 650 mg PRN Q6HRS PRN PA MILD PAIN / TEMP Last administered on 12/20/18at 14:59; Start 12/20/18 at 07:15 Warfarin Sodium (Coumadin) 7.5 mg 1X WARF ONCE PO ; Start 12/20/18 at 16:00; Stop 12/20/18 at 16:01; Status DC Hydralazine HCl (Apresoline Inj) 10 mg PRN Q4HRS PRN IVP ELEVATED BP, SEE COMMENTS Last administered on 12/22/18at 11:07; Start 12/20/18 at 14:30 Potassium Chloride (Klor-Con) 40 meq 1X ONCE PO ; Start 12/20/18 at 14:30; Stop 12/20/18 at 14:41; Status DC Potassium Chloride (Klor-Con) 20 meq DAILYWBKFT PO ; Start 12/21/18 at 08:00; Stop 12/25/18 at 11:25; Status DC Albuterol/ Ipratropium (Duoneb) 3 ml RTQID NEB Last administered on 12/26/18at 08:15; Start 12/20/18 at 16:00 Piperacillin Sod/ Tazobactam Sod 3.375 gm/Sodium Chloride 50 ml @ 100 mls/hr Q6HRS IV Last administered on 12/24/18at 05:09; Start 12/20/18 at 16:00; Stop 12/24/18 at 10:15; Status DC Amino Acids/ Glycerin/ Electrolytes 1,000 ml @ 75 mls/hr [id number] IV Last administered on 12/25/18at 09:05; Start 12/21/18 at 13:00; Stop 12/25/18 at 21:59; Status DC Warfarin Sodium (Coumadin) 1 mg 1X WARF ONCE PO ; Start 12/21/18 at 16:00; Stop 12/21/18 at 16:01; Status DC Sodium Chloride 1,000 ml @ 75 mls/hr 1X ONCE IV Last administered on 12/21/18at 13:49; Start 12/21/18 at 13:15; Stop 12/22/18 at 02:34; Status DC Potassium Chloride/Water 100 ml @ 100 mls/hr Q1H IV Last administered on 12/22/18at 11:03; Start 12/22/18 at 06:00; Stop 12/22/18 at 09:59; Status DC Sodium Chloride 1,000 ml @ 75 mls/hr 1X ONCE IV Last administered on 1 14:49; Start 12/22/18 at 14:30; Stop 12/23/18 at 03:49; Status DC Potassium Chloride 20 meq/ Sodium Chloride 1,010 ml @ 75 mls/hr 1X ONCE IV Last administered on 12/22/18at 17:51; Start 12/22/18 at 16:00; Stop 12/23/18 at 05:27; Status DC Hydralazine HCl (Apresoline Inj) 10 mg Q6HRS IVP Last administered on 12/24/18 01:12; Start 12/22/18 at 18:00 Potassium Chloride/Water 100 ml @ 100 mls/hr Q1H IV Last administered on 12/23/18 14:01; Start 12/23/18 at 06:00; Stop 12/23/18 at 09:59; Status DC Potassium Chloride/Water 50 ml @ 50 mls/hr Q1H IV ; Start 12/23/18 at 11:15; Stop 12/23/18 at 13:14; Status UNV Potassium Chloride/Water 100 ml @ 100 mls/hr Q1H IV ; Start 12/23/18 at 11:30; Stop 12/23/18 at 13:04; Status DC Warfarin Sodium (Coumadin - No Dose Today) 1 each 1X WARF ONCE MC Last administered on 12/23/18 16:00; Start 12/23/18 at 16:00; Stop 12/23/18 at 16:0 1; Status DC Pantoprazole Sodium (PROTONIX VIAL for IV PUSH) 40 mg DAILYAC IVP Last administered on 12/23/18at 15:21; Start 12/23/18 at 15:00; Stop 12/24/18 at 10:43; Status DC Cefepime HCl (Maxipime) 2 gm Q8HRS IVP Last administered on 12/26/18at 06:14; Start 12/24/18 at 10:00 Metronidazole 100 ml @ 100 mls/hr Q8HRS IV Last administered on 12/26/18at 06:14; Start 12/24/18 at 10:00 Daptomycin 460 mg/ Sodium Chloride 50 ml @ 100 mls/hr Q24H IV Last administered on 10/10/19at 11:47; Start 12/24/18 at 11:00 Micafungin Sodium 100 mg/Dextrose 100 ml @ 100 mls/hr Q24H IV Last administered on 12/25/18at 11:48; Start 12/24/18 at 12:00 Pantoprazole Sodium 80 mg/ Sodium Chloride 100 ml @ 10 mls/hr Q10H IV Last administered on 12/26/18at 03:50; Start 12/24/18 at 11:00 Lorazepam (Ativan) 1 mg PRN Q6HRS PRN PO ANXIETY / AGITATION 1ST CHOICE; Start 12/24/18 at 10:45 Ondansetron HCl (Zofran) 4 mg PRN Q6HRS PRN IV NAUSEA/VOMITING; Start 12/24/18 at 10:45; Stop 12/24/18 at 10:52; Status DC Info (Icu Electrolyte Protocol) 1 ea DAILY MC Last administered on 12/25/18at 08:50; Start 12/25/18 at 09:00 Sodium Chloride (Normal Saline Flush) 3 ml QSHIFT PRN IV AFTER MEDS AND BLOOD DRAWS; Start 12/24/18 at 10:45 Sodium Chloride 1,000 ml @ 2,130 mls/hr Q29M IV Last administered on 12/24/18at 12:13; Start 12/24/18 at 10:50; Stop 12/24/18 at 11:50; Status DC Sodium Chloride 500 ml @ 1,000 mls/hr PRN Q30MIN PRN IV SEE COMMENTS; Start 12/24/18 at 11:00 Norepinephrine Bitartrate 250 ml @ 0 mls/hr CONT PRN IV SEE COMMENTS Last administered on 12/24/18at 20:22; Start 12/24/18 at 11:00 Dobutamine HCl/ Dextrose 250 ml @ 0 mls/hr CONT PRN IV SEE COMMENTS; Start 12/24/18 at 11:00 Sodium Bicarbonate (Sodium Bicarb Adult 8.4% Syr) 100 meq 1X ONCE IV Last administered on 12/24/18at 11:16; Start 12/24/18 at 11:15; Stop 12/24/18 at 11:16; Status DC Phytonadione (Vitamin K Ampule) 5 mg 1X ONCE SQ Last administered on 12/24/18at 12:24; Start 12/24/18 at 11:15; Stop 12/24/18 at 11:22; Status DC Succinylcholine Chloride (Anectine) 200 mg STK-MED ONCE .ROUTE ; Start 12/24/18 at 11:20; Stop 12/24/18 at 11:21; Status DC Midazolam HCl (Versed) 5 mg STK-MED ONCE .ROUTE ; Start 12/24/18 at 11:21; Stop 12/24/18 at 11:21; Status DC Warfarin Sodium (Coumadin - No Dose Today) 1 each 1X WARF ONCE MC ; Start 12/24/18 at 16:00; Stop 12/24/18 at 22:25; Status DC Atropine Sulfate (ATROPINE 1mg SYRINGE) 1 mg STK-MED ONCE .ROUTE ; Start 12/24/18 at 11:30; Stop 12/24/18 at 11:30; Status DC Epinephrine HCl (Adrenalin) 1 mg STK-MED ONCE .ROUTE ; Start 12/24/18 at 11:30; Stop 12/24/18 at 11:30; Status DC Succinylcholine Chloride (Anectine) 60 mg 1X ONCE IV Last administered on 12/24/18at 12:04; Start 12/24/18 at 11:45; Stop 12/24/18 at 11:46; Status DC Midazolam HCl (Versed) 2 mg 1X ONCE IV Last administered on 12/24/18at 11:30; Start 12/24/18 at 11:45; Stop 12/24/18 at 11:46; Status DC Epinephrine HCl (EPINEPHrine SYRINGE) 1 mg 1X ONCE IV ; Start 12/24/18 at 11:45; Stop 12/24/18 at 11:46; Status DC Sodium Chloride 1,000 ml @ 1,000 mls/hr 1X ONCE IV ; Start 12/24/18 at 11:45; Stop 12/24/18 at 12:44; Status DC Midazolam HCl 100 ml @ 5 mls/hr CONT PRN IV SEE I/O RECORD Last administered on 12/25/18at 23:40; Start 12/24/18 at 12:00 Fentanyl Citrate 30 ml @ 0 mls/hr CONT PRN IV SEE PROTOCOL Last administered on 12/26/18at 05:26; Start 12/24/18 at 12:00 Midazolam HCl (Versed) 2 mg 1X ONCE IV ; Start 12/24/18 at 12:15; Stop 12/24/18 at 12:16; Status DC Metoclopramide HCl (Reglan Vial) 10 mg 1X ONCE IVP Last administered on 12/24/18at 15:00; Start 12/24/18 at 12:45; Stop 12/24/18 at 12:46; Status DC Vasopressin 40 unit/Dextrose 102 ml @ 6 mls/hr CONT PRN IV SEE I/O RECORD Last administered on 12/25/18at 19:34; Start 12/24/18 at 13:00 Albumin Human 500 ml @ As Directed STK-MED ONCE IV ; Start 12/24/18 at 14:37; Stop 12/24/18 at 14:37; Status DC Albumin Human 500 ml @ 125 mls/hr 1X ONCE IV Last administered on 12/24/18at 14:39; Start 12/24/18 at 14:45; Stop 12/24/18 at 18:44; Status DC Digoxin (Lanoxin) 500 mcg 1X ONCE IV Last administered on 12/24/18at 15:30; Start 12/24/18 at 15:30; Stop 12/24/18 at 15:31; Status DC Digoxin (Lanoxin) 500 mcg STK-MED ONCE .ROUTE ; Start 12/24/18 at 15:07; Stop 12/24/18 at 15:08; Status DC Phytonadione (Vitamin K Ampule) 10 mg 1X ONCE SQ Last administered on 12/24/18at 17:36; Start 12/24/18 at 15:45; Stop 12/24/18 at 15:49; Status DC Amiodarone HCl 150 mg/Dextrose 103 ml @ 618 mls/hr 1X ONCE IV Last administered on 12/24/18at 17:09; Start 12/24/18 at 16:00; Stop 12/24/18 at 16:09; Status DC Amiodarone HCl 900 mg/Dextrose 518 ml @ 0 mls/hr CONT PRN IV SEE I/O RECORD Last administered on 12/24/18at 17:55; Start 12/24/18 at 16:00; Stop 12/24/18 at 17:55; Status DC Phytonadione (Vitamin K Ampule) 10 mg 1X ONCE SQ ; Start 12/24/18 at 17:00; Stop 12/24/18 at 17:01; Status DC Potassium Chloride/Water 50 ml @ 50 mls/hr Q1H IV Last administered on 12/25/18at 12:37; Start 12/25/18 at 09:00; Stop 12/25/18 at 12:59; Status DC Potassium Chloride/Water 50 ml @ 0 mls/hr Q1H IV ; Start 12/25/18 at 08:30; Stop 12/25/18 at 11:31; Status UNV Info (Tpn Per Pharmacy) 1 each PRN DAILY PRN MC SEE COMMENTS Last administered on 12/25/18at 12:32; Start 12/25/18 at 09:45 Sodium Chloride 50 meq/Potassium Acetate 70 meq/ Potassium Phosphate 13.6 mmol/Magnesium Sulfate 10 meq/ Calcium Gluconate 10 meq/ Multivitamins 10 ml/Chromium/ Copper/Manganese/ Seleni/Zn 1 ml/ Total Parenteral Nutrition/Amino Acids/Dextrose/ Fat Emulsion Intravenous 1,512 ml @ 63 mls/hr TPN CONT IV Last administered on 12/25/18at 21:37; Start 12/25/18 at 22:00; Stop 12/26/18 at 21:59 Amiodarone HCl 900 mg/Dextrose 518 ml @ 17 mls/hr CONT PRN IV .; Start 12/25/18 at 20:00; Status Cancel Amiodarone HCl 900 mg/Dextrose 518 ml @ 0 mls/hr CONT PRN IV SEE I/O RECORD Last administered on 12/25/18at 20:15; Start 12/25/18 at 20:15; Stop 12/25/18 at 20:15; Status DC Active Scripts Active Reported Lorazepam 1 Mg Tablet 1 Tab PO BID Percocet 7.5-325 Mg Tablet (Oxycodone/Acetaminophen) 1 Each Tablet 1 Tab PO PRN Q6HRS PRN Coumadin (Warfarin Sodium) 5 Mg Tablet 1 Tab PO DAILY Lisinopril 20 Mg Tablet 1 Tab PO DAILY Vitals/I & O Vital Sign - Last 24 Hours 12/25/18 12/25/18 12/25/18 12/25/18 11:00 11:45 12:00 12:00 Temp 99.0 99.0 Pulse 78 82 Resp 22 22 B/P (MAP) 98/58 (71) 114/54 (74) Pulse Ox 98 98 98 O2 Delivery Ventilator Ventilator Ventilator Mechanical Ventilator 12/25/18 12/25/18 12/25/18 12/25/18 13:00 14:00 14:03 14:41 Pulse 78 74 Resp 22 18 B/P (MAP) 103/53 (70) 92/52 (65) Pulse Ox 98 100 98 99 O2 Delivery Ventilator Ventilator Ventilator Ventilator 12/25/18 12/25/18 12/25/18 12/25/18 15:35 15:46 16:00 16:00 Temp 99.4 98.9 99.4 98.9 Pulse 84 80 Resp 18 19 B/P (MAP) 137/59 137/59 (85) Pulse Ox 99 97 O2 Delivery Ventilator Mechanical Ventilator O2 Flow Rate 2.0 12/25/18 12/25/18 12/25/18 12/25/18 16:05 16:05 17:00 17:15 Temp 99.1 98.9 99.1 98.9 Pulse 76 76 74 Resp 18 18 18 B/P (MAP) 112/53 119/71 (87) 116/66 Pulse Ox 97 98 O2 Delivery Ventilator O2 Flow Rate 2.0 12/25/18 12/25/18 12/25/18 12/25/18 17:18 17:30 18:00 18:14 Temp 98.8 98.4 98.8 98.4 Pulse 72 72 69 Resp 19 16 16 B/P (MAP) 127/67 120/67 (84) 120/67 Pulse Ox 98 97 O2 Delivery Ventilator Ventilator 12/25/18 12/25/18 12/25/18 12/25/18 19:00 20:00 20:00 20:33 Temp 98.6 98.6 Pulse 66 66 Resp 15 16 B/P (MAP) 123/71 (88) 130/72 (91) Pulse Ox 98 98 98 O2 Delivery Ventilator Ventilator Mechanical Ventilator Ventilator 12/25/18 12/25/18 12/25/18 12/25/18 21:00 21:38 22:00 22:49 Pulse 67 77 65 Resp 16 16 16 B/P (MAP) 133/72 (92) 139/73 131/70 (90) Pulse Ox 97 97 97 O2 Delivery Ventilator Ventilator Ventilator O2 Flow Rate 2.0 12/25/18 12/25/18 12/25/18 12/26/18 23:00 23:19 23:46 00:00 Temp 98.8 98.8 Pulse 62 64 Resp 16 16 16 B/P (MAP) 116/61 (79) 116/62 (80) Pulse Ox 98 98 99 98 O2 Delivery Ventilator Ventilator Ventilator Ventilator O2 Flow Rate 2.0 12/26/18 12/26/18 12/26/18 12/26/18 00:00 00:00 01:00 02:00 Pulse 69 66 82 Resp 16 16 B/P (MAP) 116/62 123/69 (87) 153/70 (97) Pulse Ox 99 100 O2 Delivery Mechanical Ventilator Ventilator Ventilator 12/26/18 12/26/18 12/26/18 12/26/18 02:03 03:00 04:00 04:00 Temp 98.6 98.6 Pulse 78 74 Resp 16 15 B/P (MAP) 147/76 (99) 101/60 (74) Pulse Ox 99 98 97 O2 Delivery Ventilator Ventilator Ventilator Mechanical Ventilator 12/26/18 12/26/18 12/26/18 12/26/18 04:34 05:00 05:58 06:00 Pulse 65 57 Resp 15 16 B/P (MAP) 86/53 (64) 110/62 (78) Pulse Ox 99 98 99 98 O2 Delivery Ventilator Ventilator Ventilator Ventilator 12/26/18 12/26/18 12/26/18 06:15 08:15 08:50 Resp 16 Pulse Ox 99 99 99 O2 Delivery Ventilator Ventilator Ventilator O2 Flow Rate 2.0 Intake and Output 0 12/25/18 12/25/18 12/26/18 14:59 22:59 06:59 Intake Total 350 ml 551 ml 718 ml Output Total 800 ml 1025 ml 1000 ml Balance -450 ml -474 ml -282 ml Problem List Problems Medical Problems: (1) Alcohol abuse Status: Acute (2) Closed head injury Status: Acute Assessment GI bleed- s/p clipping, will resume anticoagulation with mechanical valve and monitor for rebleeding as discussed with patients son/Dr Solis/staff ALIZA KATHLEEN MD Dec 26, 2018 10:33
--- NOTE | 2018-12-26 10:43 | NUR ---
SPOKE WITH DR. BONILLA REGARDING HEAD CT RESULTS-- ORDERS RECEIVED FOR ASPIRIN 300MG RECTALLY IF OKAY WITH GI. GI PAGED.
--- NOTE | 2018-12-26 10:44 | NUR ---
DR. SANABRIA SPOKE WITH SON AT BEDSIDE REGARDING HEAD CT RESULTS. ROBBIE COELHO SPOKE WITH DAD OVER THE PHONE REGARDING RESULTS OF HEAD CT AND PLAN OF CARE.
--- NOTE | 2018-12-26 10:45 | PDOC ---
PULMONARY PROGRESS NOTES Subjective PT SEDATED ON AC MODE DECREASE PRESSORS REQUIREMENTS Vitals Vital Signs Date Time Temp Pulse Resp B/P (MAP) Pulse Ox O2 Delivery O2 Flow Rate FiO2 12/26/18 08:50 99 Ventilator 12/26/18 06:15 16 2.0 12/26/18 06:00 57 110/62 (78) 12/26/18 04:00 98.6 98.6 Lungs: Clear Cardiovascular: S1, S2 Abdomen: Soft Extremities: Other (EDEMA) Skin: Warm Labs Laboratory Tests Test 12/24/18 13:17 12/24/18 13:40 12/24/18 15:05 12/24/18 19:50 O2 Saturation 98 % (92-99) 97 % (92-99) Arterial Blood pH 7.38 (7.35-7.45) 7.46 (7.35-7.45) Arterial Blood pCO2 at Patient Temp 21 mmHg (35-46) 25 mmHg (35-46) Arterial Blood pO2 at Patient Temp 120 mmHg (75-108) 107 mmHg (75-108) Arterial Blood HCO3 12 mmol/L (21-28) 17 mmol/L (21-28) Arterial Blood Base Excess -12 mmol/L (-3-3) -6 mmol/L (-3-3) FiO2 40 40 Glucose (Fingerstick) 157 mg/dL (70-99) Prothrombin Time 34.1 SEC (11.7-14.0) Prothromb Time International Ratio 3.4 (0.8-1.1) Lactic Acid Level 5.2 mmol/L (0.4-2.0) Iron Level 39 ug/dL (65-175) Total Iron Binding Capacity 176 ug/dL (250-450) Iron Saturation 22 % (15-34) Ferritin 786 ng/mL (26-388) Test 12/24/18 19:59 12/24/18 21:00 12/25/18 05:45 12/25/18 06:30 Urine Collection Type Unknown Urine Color Yellow Urine Clarity Clear Urine pH 5.5 Urine Specific Carlton 1.020 Urine Protein 30 mg/dL (NEG-TRACE) Urine Glucose (UA) 250 mg/dL (NEG) Urine Ketones (Stick) Negative mg/dL (NEG) Urine Blood Moderate (NEG) Urine Nitrite Negative (NEG) Urine Bilirubin Negative (NEG) Urine Urobilinogen Dipstick 0.2 mg/dL (0.2 mg/dL) Urine Leukocyte Esterase Negative (NEG) Urine RBC Occ /HPF (0-2) Urine WBC 1-4 /HPF (0-4) Urine Transitional Epithelial Cells Occ /LPF Urine Renal Epithelial Cells Occ /LPF Urine Amorphous Sediment Present /HPF Urine Bacteria 0 /HPF (0-FEW) Urine Hyaline Casts Few /HPF Urine Granular Casts Moderate /HPF Urine Mucus Mod /LPF White Blood Count 12.8 x10^3/uL (4.0-11.0) 10.8 x10^3/uL (4.0-11.0) Red Blood Count 2.39 x10^6/uL (4.30-5.70) 2.64 x10^6/uL (4.30-5.70) Hemoglobin 6.7 g/dL (13.0-17.5) 7.9 g/dL (13.0-17.5) Hematocrit 19.9 % (39.0-53.0) 22.9 % (39.0-53.0) Mean Corpuscular Volume 84 fL (79-100) 87 fL (79-100) Mean Corpuscular Hemoglobin 28 pg (25-35) 30 pg (25-35) Mean Corpuscular Hemoglobin Concent 34 g/dL (31-37) 35 g/dL (31-37) Red Cell Distribution Width 19.6 % (11.5-14.5) 17.5 % (11.5-14.5) Platelet Count 234 x10^3/uL (140-400) 195 x10^3/uL (140-400) Prothrombin Time 22.7 SEC (11.7-14.0) 19.5 SEC (11.7-14.0) Prothromb Time International Ratio 2.0 (0.8-1.1) 1.7 (0.8-1.1) Activated Partial Thromboplast Time 33 SEC (24-38) Fibrinogen 298 mg/dL (200-440) Neutrophils (%) (Auto) 82 % (31-73) Lymphocytes (%) (Auto) 10 % (24-48) Monocytes (%) (Auto) 8 % (0-9) Eosinophils (%) (Auto) 0 % (0-3) Basophils (%) (Auto) 1 % (0-3) Neutrophils # (Auto) 8.8 x10^3/uL (1.8-7.7) Lymphocytes # (Auto) 1.1 x10^3/uL (1.0-4.8) Monocytes # (Auto) 0.8 x10^3/uL (0.0-1.1) Eosinophils # (Auto) 0.0 x10^3/uL (0.0-0.7) Basophils # (Auto) 0.1 x10^3/uL (0.0-0.2) Ammonia 13 mcmol/L (11-34) Lipase 35 U/L (73-393) Sodium Level 152 mmol/L (136-145) Potassium Level 3.0 mmol/L (3.5-5.1) Chloride Level 119 mmol/L (98-107) Carbon Dioxide Level 25 mmol/L (21-32) Anion Gap 8 (6-14) Blood Urea Nitrogen 41 mg/dL (8-26) Creatinine 1.2 mg/dL (0.7-1.3) Estimated GFR (Cockcroft-Gault) 62.4 BUN/Creatinine Ratio 34 (6-20) Glucose Level 133 mg/dL (70-99) Calcium Level 7.7 mg/dL (8.5-10.1) Magnesium Level 1.9 mg/dL (1.8-2.4) Total Bilirubin 0.7 mg/dL (0.2-1.0) Aspartate Amino Transf (AST/SGOT) 1390 U/L (15-37) Alanine Aminotransferase (ALT/SGPT) 1059 U/L (16-63) Alkaline Phosphatase 27 U/L (46-116) Total Protein 4.9 g/dL (6.4-8.2) Albumin 2.6 g/dL (3.4-5.0) Albumin/Globulin Ratio 1.1 (1.0-1.7) Test 12/25/18 08:00 12/25/18 11:32 12/25/18 14:00 12/25/18 22:15 O2 Saturation 97 % (92-99) Arterial Blood pH 7.47 (7.35-7.45) Arterial Blood pCO2 at Patient Temp 28 mmHg (35-46) Arterial Blood pO2 at Patient Temp 93 mmHg (75-108) Arterial Blood HCO3 20 mmol/L (21-28) Arterial Blood Base Excess -3 mmol/L (-3-3) FiO2 40 Lactic Acid Level 0.9 mmol/L (0.4-2.0) White Blood Count 8.5 x10^3/uL (4.0-11.0) 9.6 x10^3/uL (4.0-11.0) Red Blood Count 2.32 x10^6/uL (4.30-5.70) 3.34 x10^6/uL (4.30-5.70) Hemoglobin 6.8 g/dL (13.0-17.5) 9.8 g/dL (13.0-17.5) Hematocrit 20.2 % (39.0-53.0) 29.1 % (39.0-53.0) Mean Corpuscular Volume 87 fL (79-100) 87 fL (79-100) Mean Corpuscular Hemoglobin 29 pg (25-35) 30 pg (25-35) Mean Corpuscular Hemoglobin Concent 34 g/dL (31-37) 34 g/dL (31-37) Red Cell Distribution Width 17.7 % (11.5-14.5) 16.4 % (11.5-14.5) Platelet Count 168 x10^3/uL (140-400) 180 x10^3/uL (140-400) Test 12/26/18 05:40 12/26/18 08:00 White Blood Count 8.5 x10^3/uL (4.0-11.0) Red Blood Count 3.34 x10^6/uL (4.30-5.70) Hemoglobin 9.9 g/dL (13.0-17.5) Hematocrit 29.4 % (39.0-53.0) Mean Corpuscular Volume 88 fL (79-100) Mean Corpuscular Hemoglobin 30 pg (25-35) Mean Corpuscular Hemoglobin Concent 34 g/dL (31-37) Red Cell Distribution Width 16.8 % (11.5-14.5) Platelet Count 184 x10^3/uL (140-400) Prothrombin Time 15.9 SEC (11.7-14.0) Prothromb Time International Ratio 1.3 (0.8-1.1) Sodium Level 154 mmol/L (136-145) Potassium Level 3.9 mmol/L (3.5-5.1) Chloride Level 120 mmol/L (98-107) Carbon Dioxide Level 26 mmol/L (21-32) Anion Gap 8 (6-14) Blood Urea Nitrogen 30 mg/dL (8-26) Creatinine 0.9 mg/dL (0.7-1.3) Estimated GFR (Cockcroft-Gault) 87.0 BUN/Creatinine Ratio 33 (6-20) Glucose Level 152 mg/dL (70-99) Calcium Level 8.4 mg/dL (8.5-10.1) Phosphorus Level 2.4 mg/dL (2.6-4.7) Magnesium Level 2.2 mg/dL (1.8-2.4) Total Bilirubin 0.5 mg/dL (0.2-1.0) Aspartate Amino Transf (AST/SGOT) 519 U/L (15-37) Alanine Aminotransferase (ALT/SGPT) 982 U/L (16-63) Alkaline Phosphatase 32 U/L (46-116) Total Protein 4.9 g/dL (6.4-8.2) Albumin 2.5 g/dL (3.4-5.0) Albumin/Globulin Ratio 1.0 (1.0-1.7) Triglycerides Level 50 mg/dL (0-150) O2 Saturation 97 % (92-99) Arterial Blood pH 7.38 (7.35-7.45) Arterial Blood pCO2 at Patient Temp 38 mmHg (35-46) Arterial Blood pO2 at Patient Temp 102 mmHg (75-108) Arterial Blood HCO3 22 mmol/L (21-28) Arterial Blood Base Excess -3 mmol/L (-3-3) FiO2 35% Laboratory Tests Test 12/25/18 11:32 12/25/18 14:00 12/25/18 22:15 12/26/18 05:40 Lactic Acid Level 0.9 mmol/L (0.4-2.0) White Blood Count 8.5 x10^3/uL (4.0-11.0) 9.6 x10^3/uL (4.0-11.0) 8.5 x10^3/uL (4.0-11.0) Red Blood Count 2.32 x10^6/uL (4.30-5.70) 3.34 x10^6/uL (4.30-5.70) 3.34 x10^6/uL (4.30-5.70) Hemoglobin 6.8 g/dL (13.0-17.5) 9.8 g/dL (13.0-17.5) 9.9 g/dL (13.0-17.5) Hematocrit 20.2 % (39.0-53.0) 29.1 % (39.0-53.0) 29.4 % (39.0-53.0) Mean Corpuscular Volume 87 fL (79-100) 87 fL (79-100) 88 fL (79-100) Mean Corpuscular Hemoglobin 29 pg (25-35) 30 pg (25-35) 30 pg (25-35) Mean Corpuscular Hemoglobin Concent 34 g/dL (31-37) 34 g/dL (31-37) 34 g/dL (31-37) Red Cell Distribution Width 17.7 % (11.5-14.5) 16.4 % (11.5-14.5) 16.8 % (11.5-14.5) Platelet Count 168 x10^3/uL (140-400) 180 x10^3/uL (140-400) 184 x10^3/uL (140-400) Prothrombin Time 15.9 SEC (11.7-14.0) Prothromb Time International Ratio 1.3 (0.8-1.1) Sodium Level 154 mmol/L (136-145) Potassium Level 3.9 mmol/L (3.5-5.1) Chloride Level 120 mmol/L (98-107) Carbon Dioxide Level 26 mmol/L (21-32) Anion Gap 8 (6-14) Blood Urea Nitrogen 30 mg/dL (8-26) Creatinine 0.9 mg/dL (0.7-1.3) Estimated GFR (Cockcroft-Gault) 87.0 BUN/Creatinine Ratio 33 (6-20) Glucose Level 152 mg/dL (70-99) Calcium Level 8.4 mg/dL (8.5-10.1) Phosphorus Level 2.4 mg/dL (2.6-4.7) Magnesium Level 2.2 mg/dL (1.8-2.4) Total Bilirubin 0.5 mg/dL (0.2-1.0) Aspartate Amino Transf (AST/SGOT) 519 U/L (15-37) Alanine Aminotransferase (ALT/SGPT) 982 U/L (16-63) Alkaline Phosphatase 32 U/L (46-116) Total Protein 4.9 g/dL (6.4-8.2) Albumin 2.5 g/dL (3.4-5.0) Albumin/Globulin Ratio 1.0 (1.0-1.7) Triglycerides Level 50 mg/dL (0-150) Test 12/26/18 08:00 O2 Saturation 97 % (92-99) Arterial Blood pH 7.38 (7.35-7.45) Arterial Blood pCO2 at Patient Temp 38 mmHg (35-46) Arterial Blood pO2 at Patient Temp 102 mmHg (75-108) Arterial Blood HCO3 22 mmol/L (21-28) Arterial Blood Base Excess -3 mmol/L (-3-3) FiO2 35% Medications Active Scripts Medications Dose Route/Sig Max Daily Dose Days Date Category Lorazepam 1 Mg Tablet 1 Tab PO BID 12/10/18 Reported Percocet 7.5-325 Mg Tablet (Oxycodone/Acetaminophen) 1 Each Tablet 1 Tab PO PRN Q6HRS PRN 12/10/18 Reported Coumadin (Warfarin Sodium) 5 Mg Tablet 1 Tab PO DAILY 10/06/17 Reported Lisinopril 20 Mg Tablet 1 Tab PO DAILY 10/06/17 Reported Impression . IMPRESSION: 1. Acute respiratory failure secondary to severe metabolic acidosis. 2. Metabolic acidosis. 3. Septic shock versus acute volemic shock. 4. Leukocytosis. 5. Acute drop in hemoglobin. 6. Alcoholism. 7. Hyponatremia, improved. 8. Protein malnutrition. 9. Metabolic toxic encephalopathy. 10. Possible aspiration. 11. Fever. 12. History of seizures. 13. Chronic obstructive pulmonary disease. 14. Hypertension. 15. Peripheral neuropathy. 16. Status post aortic valve replacement for aortic stenosis. 17. NON VARICEAL BLEED UPON EGD ENDO REPORT IMP: Non-variceal bleeding, distal esophagus. Inflammatory/Dieulafoy possible, aggravated by coagulopathy. REC: Continue PPI drip Correct coags. Transfuse prn. Watch INR, platelet counts. Observe for signs of ongoing bleeding. Small OG OK gently if needed. MRI BRAIN Cortically based cerebral edema is noted involving bifrontal lobes, right greater than left, as well as symmetric involvement of the bilateral occipital and parietal lobes. Differential considerations would include subacute ischemia from global hyperperfusion. Of note, there is not significant involvement of the basal ganglia as typically seen with cerebral hypoxic injury. Findings may also be seen with posterior reversible encephalopathy syndrome. There is no midline shift identified. Plan . HEMODYNAMICALLY BETTER WILL CONTINUE SUPPORT MRI REPORT NOTE NOT READY FOR TRIAL ANTIBX PER ID MONITOR H/H ENDO REPORT NOTED LABS REVIEWED CCT 35 MINUTES REVIEWING LABS, DATA, XRAY YOHAN COWAN MD Dec 26, 2018 10:45
--- NOTE | 2018-12-26 11:23 | PDOC ---
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 Pt's son was understanding. AC 16/500/3.0/35% 5.0 PEEP AST 519, down from 1390 ALT 982, down from 1059 DW RN and son 12/25/18 Pt seen and examined in the ICU Sedated and intubated Was resting in bed Charts and labs reviewed AC 16/500/3.0/35% 5.0 PEEP AST 1390, ALT 1059 Poor prognosis DW RN 12/24/18 Pt seen and examined bedside INC soa, tachy, dark stool x 2 altered mental status Was resting in BED DW RN; Charts and labs reviewed Replace potassium Failed swallow test Poor prognosis Check serum osmolality 12/17/18 Pt seen and examined in ICU PT still sedated PEGGY RN that she tried to wean the patient off of Precedex but he continued to be combative so she had to continue the sedation meds Consulted neurology to make sure there isn't other pathology causing his mental status change Charts and labs reviewed NA 143 12/16/18 Pt seen and examined in the ICU Pt is sedated with IV Precedex PEGGY AVALOS Pt was combative in the morning Charts and labs reviewed Na: 140 12/15/18 Pt seen and examined in the ICU Pt's son was seen leaving the room Pt is still sedated with Precedex Pt requested pain medications Chart and labs reviewed Hyponatremia resolved Pt is bradycardic with rate of 50 D/w RN 12/14/18 Pt seen and examined in the ICU Pt still sedated with Precedex INR 1.1 Hyponatremia has resolved PEGGY RN Reviewed chart 12/13/18 Pt seen and examined in the ICU Pt was combative and trying to get out of bed all morning. Pt was given Ativan, Haldol, Benadryl, Zyprexa and finally Fentanyl for patient safety. He was comfortably snoring. Discussed with son who was glad to see the pt finally asleep. PEGGY RN Vitals/I&O Vitals/I&O: Vital Signs Date Time Temp Pulse Resp B/P (MAP) Pulse Ox O2 Delivery O2 Flow Rate FiO2 12/26/18 10:00 72 24 144/68 (93) 100 Ventilator 12/26/18 08:00 99.1 99.1 12/26/18 06:15 2.0 I & O 12/25/18 12/25/18 12/26/18 14:59 22:59 06:59 Intake Total 350 ml 551 ml 718 ml Output Total 800 ml 1025 ml 1000 ml Balance -450 ml -474 ml -282 ml Physical Exam Physical Exam: GENERAL: Intubated and sedated HEENT: Pupils are equally round and reactive. Oropharynx is pink and dry. NECK: Supple. LUNGS: Clear to auscultation. HEART: S1, S2. ABDOMEN: Obese, soft, and nontender with bowel sounds present. Rectal tube : Peng EXTREMITIES: No gross edema or cyanosis. Mittens SKIN: Warm to touch. No signs of rash.some healing scraps/echymosis NEUROLOGIC: sedated IV: RUE PICC General: moderate distress, Other (Intubated, sedated ) Heart: Regular rate, Normal S1, Normal S2, No murmurs, Other (valvular click, TACHY 145) Lungs: Clear Abdomen: Normal bowel sounds, Soft, No tenderness, No masses (HEPATOMEGALY) Extremities: No clubbing, No cyanosis, Other (trace bilateral LE edema ) Skin: No significant lesion Labs Labs: Laboratory Tests Test 12/25/18 11:32 12/25/18 14:00 12/25/18 22:15 12/26/18 05:40 Lactic Acid Level 0.9 mmol/L (0.4-2.0) White Blood Count 8.5 x10^3/uL (4.0-11.0) 9.6 x10^3/uL (4.0-11.0) 8.5 x10^3/uL (4.0-11.0) Red Blood Count 2.32 x10^6/uL (4.30-5.70) 3.34 x10^6/uL (4.30-5.70) 3.34 x10^6/uL (4.30-5.70) Hemoglobin 6.8 g/dL (13.0-17.5) 9.8 g/dL (13.0-17.5) 9.9 g/dL (13.0-17.5) Hematocrit 20.2 % (39.0-53.0) 29.1 % (39.0-53.0) 29.4 % (39.0-53.0) Mean Corpuscular Volume 87 fL (79-100) 87 fL (79-100) 88 fL (79-100) Mean Corpuscular Hemoglobin 29 pg (25-35) 30 pg (25-35) 30 pg (25-35) Mean Corpuscular Hemoglobin Concent 34 g/dL (31-37) 34 g/dL (31-37) 34 g/dL (31-37) Red Cell Distribution Width 17.7 % (11.5-14.5) 16.4 % (11.5-14.5) 16.8 % (11.5-14.5) Platelet Count 168 x10^3/uL (140-400) 180 x10^3/uL (140-400) 184 x10^3/uL (140-400) Prothrombin Time 15.9 SEC (11.7-14.0) Prothromb Time International Ratio 1.3 (0.8-1.1) Sodium Level 154 mmol/L (136-145) Potassium Level 3.9 mmol/L (3.5-5.1) Chloride Level 120 mmol/L (98-107) Carbon Dioxide Level 26 mmol/L (21-32) Anion Gap 8 (6-14) Blood Urea Nitrogen 30 mg/dL (8-26) Creatinine 0.9 mg/dL (0.7-1.3) Estimated GFR (Cockcroft-Gault) 87.0 BUN/Creatinine Ratio 33 (6-20) Glucose Level 152 mg/dL (70-99) Calcium Level 8.4 mg/dL (8.5-10.1) Phosphorus Level 2.4 mg/dL (2.6-4.7) Magnesium Level 2.2 mg/dL (1.8-2.4) Total Bilirubin 0.5 mg/dL (0.2-1.0) Aspartate Amino Transf (AST/SGOT) 519 U/L (15-37) Alanine Aminotransferase (ALT/SGPT) 982 U/L (16-63) Alkaline Phosphatase 32 U/L (46-116) Total Protein 4.9 g/dL (6.4-8.2) Albumin 2.5 g/dL (3.4-5.0) Albumin/Globulin Ratio 1.0 (1.0-1.7) Triglycerides Level 50 mg/dL (0-150) Test 12/26/18 08:00 O2 Saturation 97 % (92-99) Arterial Blood pH 7.38 (7.35-7.45) Arterial Blood pCO2 at Patient Temp 38 mmHg (35-46) Arterial Blood pO2 at Patient Temp 102 mmHg (75-108) Arterial Blood HCO3 22 mmol/L (21-28) Arterial Blood Base Excess -3 mmol/L (-3-3) FiO2 35% Review of Systems Review of Systems: Cannot obtain due to sedation Assessment and Plan Assessmemt and Plan Problems Medical Problems: (1) Alcohol abuse Status: Acute (2) Closed head injury Status: Acute Assessment Multiple infarcts versus reversible encephalopathy Respiratory failure EtOH Withdrawal Liver shock Hypokalemia GI Bleed Severe alcohol abuse Plan ICU monitoring MRI Appreciate neuro, GI, ID, pulm, cardio input Trend Hgb Trend LFTs Trend ammonia Continue IV K+ Vent weaning Wean off pressors Poor prognosis Full code Total time 32 min Comment Review of Relevant I have reviewed the following items robert (where applicable) has been applied. Medications: Current Medications Medications (Trade) Dose Ordered Sig/Siddharth Route PRN Reason Start Time Stop Time Status Last Admin Dose Admin Sodium Chloride 50 meq/Potassium Acetate 70 meq/ Potassium Phosphate 13.6 mmol/Magnesium Sulfate 10 meq/ Calcium Gluconate 10 meq/ Multivitamins 10 ml/Chromium/ Copper/Manganese/ Seleni/Zn 1 ml/ Total Parenteral Nutrition/Amino Acids/Dextrose/ Fat Emulsion Intravenous 1,512 ml @ 63 mls/hr TPN CONT IV 12/25/18 22:00 12/26/18 21:59 12/25/18 21:37 Amiodarone HCl 900 mg/Dextrose 518 ml @ 0 mls/hr CONT PRN IV SEE I/O RECORD 12/25/18 20:15 12/25/18 20:15 DC 12/25/18 20:15 PAT SANABRIA III DO Dec 26, 2018 11:23
[2018-12-26] MEDS: ASPIRIN RECTAL 300 MG SUPP. PR SCH (12:38)
[2018-12-26] MEDS: VASOPRESSIN 40 UNIT in IV DEXTROSE 5% 100ML 100 ML IV PRN (12:38)
[2018-12-26] MEDS: DAPTOmycin (GENERIC) IVPB 460 MG in IV NORMAL SALINE 50ML 50 ML IV SCH (12:39)
[2018-12-26] MEDS ORDERED: AMIODARONE 900 MG in IV DEXTROSE 5% 500 ML IV PRN (12:45)
--- NOTE | 2018-12-26 13:00 | NUR ---
RADIOLOGY CALLED UNIT WITH RESULTS OF BRAIN MRI. DR. BONILLA ON UNIT AND SPOKE WITH RADIOLOGIST PERSONALLY REGARDING RESULTS.
--- NOTE | 2018-12-26 13:02 | RAD ---
EXAMINATION: Magnetic resonance imaging (MRI) of the brain and brainstem without contrast 12/26/2018 10:52 AM HISTORY: PRES versus infarcts TECHNIQUE: Multiplanar multi-weighted MRI of the brain and brainstem was performed without intravenous contrast using the general brain protocol. COMPARISON: None available. FINDINGS: There is cerebral edema predominantly cortically based involving the right superior and posterior frontal lobe, minimally involving the left frontal lobe and symmetric diffuse involvement of the bilateral parietal and occipital cortex. ADC values are borderline low to intermediate signal. T2 and FLAIR images demonstrate diffuse edema in this distribution. No susceptibility artifact is identified to suggest hemorrhage. The susceptibility is identified in the region of the pineal gland, likely from calcification. The scalp and calvarium are normal. The superior sagittal sinus demonstrates normal venous flow. The corpus callosum is normal in shape and signal intensity. The posterior fossa is unremarkable. The pituitary and sella are normal. The brainstem and craniocervical junction are unremarkable. The ventricles are normal in size and position without evidence of hydrocephalus. Mild mucosal thickening of the maxillary sinuses is noted bilaterally as well as moderate mucosal thickening of the ethmoid air cells. The visualized portions of the mastoids are unremarkable. The orbits appear normal. Normal flow voids are demonstrated in the carotid arteries and basilar artery. IMPRESSION: Cortically based cerebral edema is noted involving bifrontal lobes, right greater than left, as well as symmetric involvement of the bilateral occipital and parietal lobes. Differential considerations would include subacute ischemia from global hyperperfusion. Of note, there is not significant involvement of the basal ganglia as typically seen with cerebral hypoxic injury. Findings may also be seen with posterior reversible encephalopathy syndrome. There is no midline shift identified. FOR INTERNAL CODING PURPOSES Critical result: Findings discussed with JAMEL BONILLA at 12/26/2018 12:59 PM. RESULT CODE: (C) Electronically signed by: Ai Canales MD (12/26/2018 1:00 PM) [id number]
[2018-12-26] MEDS: MICAFUNGIN 100 MG in IV DEXTROSE 5% 100ML 100 ML IV SCH (13:22)
[2018-12-26 14:23] LABS: HEMATOCRIT 25.7 % (39.0-53.0); HEMOGLOBIN 8.7 g/dL (13.0-17.5); RED BLOOD COUNT 2.86 x10^6/uL (4.30-5.70); RED CELL DISTRIBUTION WIDTH 17.4 % (11.5-14.5); WHITE BLOOD COUNT 8.3 x10^3/uL (4.0-11.0)
[2018-12-26] MEDS: TPN PER PHARMACY MC PRN (15:02)
--- NOTE | 2018-12-26 15:02 | NUR ---
Pharmacy TPN Dosing Note S: SHAW OG is a 58 year old M Currently receiving Central Continuous TPN started 12/25/18 B:Pertinent PMH: NPO Height: 5 feet, 9 inches Weight: 78.1 kg Current diet: LABS: Sodium: 154 Potassium: 3.9 Chloride: 120 Calcium: 8.4 Corrected Calcium: 9.84 Magnesium: 2.2 CO2: 26 SCr: 0.9 Glucose: 152 Albumin: 2.2 AST: 519 ALT: 982 TPN FORMULA: TPN TYPE: Central Continuous AMINO ACIDS: 95 gm DEXTROSE: 250 gm LIPIDS: 20 gm POTASSIUM ACETATE: 70 mEq POTASSIUM PHOSPHATE: 17 mmol MAGNESIUM: 10 mEq CALCIUM: 10 mEq MULTIPLE VITAMIN: 10 ml TRACE ELEMENTS: 1 ml TPN PLAN: -Hypernatremia, remove NaCl from TPN. Increase rate to 83 ml/hr. -Serum phos slightly low, increase KPhos to 17 mmol/day. -Add thiamine and folic acid to TPN due to pt in withdrawal. -BMP, mag, phos tomorrow. R: Change TPN rate to 83 ml/hr and above formula. Will monitor electrolytes, glucose, and tolerance to TPN. EVAN JOEL, [facility], 12/26/18 [id number]
[2018-12-26] MEDS: HEPARIN 25,000UTS/500ML PREMIX 500 ML IV PRN (15:34)
--- NOTE | 2018-12-26 15:57 | PDOC ---
PROGRESS NOTES Subjective Subjective Intubated and sedated Objective Objective Vital Signs Date Time Temp Pulse Resp B/P (MAP) Pulse Ox O2 Delivery O2 Flow Rate FiO2 12/26/18 15:34 100 Ventilator 12/26/18 14:00 56 16 133/68 (89) 12/26/18 12:00 97.3 97.3 12/26/18 06:15 2.0 Intake and Output 12/26/18 06:59 Intake Total 1619 ml Output Total 2825 ml Balance -1206 ml IV Total 1619 ml Output Urine Total 2775 ml Stool Total 50 ml # Bowel Movements 1 Physical Exam Abdomen: Normal bowel sounds, Soft, No tenderness, No masses (HEPATOMEGALY) Heart: Regular rate, Normal S1, Normal S2, No murmurs, Other (valvular click, TACHY 145) Extremities: Other (trace bilateral LE edema ) General: Other (Intubated, sedated ) HEENT: Atraumatic, Mucous membr. moist/pink Lungs: Other (diminished bases) Skin: No significant lesion Assessment Assessment 1. Mechanical fall secondary to intoxication 2. Aortic stenosis s/p mechanical aortic valve; Echo with LVEF 55%. Warfarin on hold secondary to GI bleeding. 3. Metabolic, toxic encephalopathy 4. Fevers, low-grade. BC negative thus far. ID following 5. Hypertension; now hypotensive requiring pressor support. Off levo, remains on vasopressin 6. PAFIB; presently back in sinus rhythm. Continue amiodarone. 7. LG 8. ETOH abuse 9. Acute respiratory failure; s/p intubation, continue vent management per pulmonary team 10. GI bleed; EGD showed possible dieulafoy's versus other with some bleeding that was clipped, no varices noted. Treat per gastroenterology team Plan Plan of Care Problems Medical Problems: (1) Alcohol abuse Status: Acute (2) Closed head injury Status: Acute Comment Review of Relevant I have reviewed the following items robert (where applicable) has been applied. Labs Laboratory Tests Test 12/25/18 22:15 12/26/18 05:40 12/26/18 08:00 12/26/18 14:15 White Blood Count 9.6 x10^3/uL (4.0-11.0) 8.5 x10^3/uL (4.0-11.0) 8.3 x10^3/uL (4.0-11.0) Red Blood Count 3.34 x10^6/uL (4.30-5.70) 3.34 x10^6/uL (4.30-5.70) 2.86 x10^6/uL (4.30-5.70) Hemoglobin 9.8 g/dL (13.0-17.5) 9.9 g/dL (13.0-17.5) 8.7 g/dL (13.0-17.5) Hematocrit 29.1 % (39.0-53.0) 29.4 % (39.0-53.0) 25.7 % (39.0-53.0) Mean Corpuscular Volume 87 fL (79-100) 88 fL (79-100) 90 fL (79-100) Mean Corpuscular Hemoglobin 30 pg (25-35) 30 pg (25-35) 31 pg (25-35) Mean Corpuscular Hemoglobin Concent 34 g/dL (31-37) 34 g/dL (31-37) 34 g/dL (31-37) Red Cell Distribution Width 16.4 % (11.5-14.5) 16.8 % (11.5-14.5) 17.4 % (11.5-14.5) Platelet Count 180 x10^3/uL (140-400) 184 x10^3/uL (140-400) 176 x10^3/uL (140-400) Prothrombin Time 15.9 SEC (11.7-14.0) Prothromb Time International Ratio 1.3 (0.8-1.1) Sodium Level 154 mmol/L (136-145) Potassium Level 3.9 mmol/L (3.5-5.1) Chloride Level 120 mmol/L (98-107) Carbon Dioxide Level 26 mmol/L (21-32) Anion Gap 8 (6-14) Blood Urea Nitrogen 30 mg/dL (8-26) Creatinine 0.9 mg/dL (0.7-1.3) Estimated GFR (Cockcroft-Gault) 87.0 BUN/Creatinine Ratio 33 (6-20) Glucose Level 152 mg/dL (70-99) Calcium Level 8.4 mg/dL (8.5-10.1) Phosphorus Level 2.4 mg/dL (2.6-4.7) Magnesium Level 2.2 mg/dL (1.8-2.4) Total Bilirubin 0.5 mg/dL (0.2-1.0) Aspartate Amino Transf (AST/SGOT) 519 U/L (15-37) Alanine Aminotransferase (ALT/SGPT) 982 U/L (16-63) Alkaline Phosphatase 32 U/L (46-116) Total Protein 4.9 g/dL (6.4-8.2) Albumin 2.5 g/dL (3.4-5.0) Albumin/Globulin Ratio 1.0 (1.0-1.7) Triglycerides Level 50 mg/dL (0-150) O2 Saturation 97 % (92-99) Arterial Blood pH 7.38 (7.35-7.45) Arterial Blood pCO2 at Patient Temp 38 mmHg (35-46) Arterial Blood pO2 at Patient Temp 102 mmHg (75-108) Arterial Blood HCO3 22 mmol/L (21-28) Arterial Blood Base Excess -3 mmol/L (-3-3) FiO2 35% Microbiology 12/24/18 Blood Culture - Preliminary, Resulted NO GROWTH AFTER 2 DAYS 12/20/18 Urine Culture - Final, Complete 12/20/18 Urine Culture Result 1 (AMARA) - Final, Complete Medications Current Medications Amiodarone HCl 900 mg/Dextrose 518 ml @ 17 mls/hr CONT PRN IV .; Start 12/25/18 at 20:00; Status Cancel Amiodarone HCl 900 mg/Dextrose 518 ml @ 33 mls/hr CONT PRN IV SEE I/O RECORD; Start 12/26/18 at 12:45 Amiodarone HCl 900 mg/Dextrose 518 ml @ 0 mls/hr CONT PRN IV SEE I/O RECORD Last administered on 12/25/18at 20:15; Start 12/25/18 at 20:15; Stop 12/25/18 at 20:15; Status DC Aspirin (Aspirin Rectal Supp) 300 mg DAILY [place] Last administered on 12/26/18at 12:38; Start 12/26/18 at 11:00 Heparin Sodium (Porcine) (Heparin Sodium) 1,950 unit PRN Q6HRS PRN IV FOR UFH LEVEL LESS THAN 0.2; Start 12/26/18 at 14:45 Heparin Sodium/ Dextrose 500 ml @ 18.72 mls/ hr CONT PRN IV PER PROTOCOL Last administered on 12/26/18at 15:34; Start 12/26/18 at 14:45 Pantoprazole Sodium (PROTONIX VIAL for IV PUSH) 40 mg BID IVP ; Start 12/26/18 at 21:00 Potassium Acetate 70 meq/Potassium Phosphate 17 mmol/ Magnesium Sulfate 10 meq/Calcium Gluconate 10 meq/ Multivitamins 10 ml/Chromium/ Copper/Manganese/ Seleni/Zn 1 ml/ Thiamine HCl 100 mg/Folic Acid 1 mg/Total Parenteral Nutrition/Amino Acids/Dextrose/ Fat Emulsion Intravenous 1,992 ml @ 83 mls/hr TPN CONT IV ; Start 12/26/18 at 22:00; Stop 12/27/18 at 21:59 Sodium Chloride 50 meq/Potassium Acetate 70 meq/ Potassium Phosphate 13.6 mmol/Magnesium Sulfate 10 meq/ Calcium Gluconate 10 meq/ Multivitamins 10 ml/Chromium/ Copper/Manganese/ Seleni/Zn 1 ml/ Total Parenteral Nutrition/Amino Acids/Dextrose/ Fat Emulsion Intravenous 1,512 ml @ 63 mls/hr TPN CONT IV Last administered on 12/25/18at 21:37; Start 12/25/18 at 22:00; Stop 12/26/18 at 21:59 Vitals/I & O Vital Sign - Last 24 Hours 12/25/18 12/25/18 12/25/18 12/25/18 16:00 16:00 16:05 16:05 Temp 98.9 99.1 98.9 99.1 Pulse 80 76 Resp 18 B/P (MAP) 137/59 (85) 112/53 Pulse Ox 97 97 O2 Delivery Ventilator Mechanical Ventilator O2 Flow Rate 2.0 12/25/18 12/25/18 12/25/18 12/25/18 17:00 17:15 17:18 17:30 Temp 98.9 98.8 98.9 98.8 Pulse 76 74 72 Resp 18 18 19 B/P (MAP) 119/71 (87) 116/66 127/67 Pulse Ox 98 98 O2 Delivery Ventilator Ventilator 12/25/18 12/25/18 12/25/18 12/25/18 18:00 18:14 19:00 20:00 Temp 98.4 98.6 98.4 98.6 Pulse 72 69 66 66 Resp 16 16 15 16 B/P (MAP) 120/67 (84) 120/67 123/71 (88) 130/72 (91) Pulse Ox 97 98 98 O2 Delivery Ventilator Ventilator Ventilator 12/25/18 12/25/18 12/25/18 12/25/18 20:00 20:33 21:00 21:38 Pulse 67 77 Resp 16 B/P (MAP) 133/72 (92) 139/73 Pulse Ox 98 97 O2 Delivery Mechanical Ventilator Ventilator Ventilator 12/25/18 12/25/18 12/25/18 12/25/18 22:00 22:49 23:00 23:19 Pulse 65 62 Resp 16 16 16 16 B/P (MAP) 131/70 (90) 116/61 (79) Pulse Ox 97 97 98 98 O2 Delivery Ventilator Ventilator Ventilator Ventilator O2 Flow Rate 2.0 2.0 12/25/18 12/26/18 12/26/18 12/26/18 23:46 00:00 00:00 00:00 Temp 98.8 98.8 Pulse 64 69 Resp 16 B/P (MAP) 116/62 (80) 116/62 Pulse Ox 99 98 O2 Delivery Ventilator Ventilator Mechanical Ventilator 12/26/18 12/26/18 12/26/18 12/26/18 01:00 02:00 02:03 03:00 Pulse 66 82 78 Resp 16 16 16 B/P (MAP) 123/69 (87) 153/70 (97) 147/76 (99) Pulse Ox 99 100 99 98 O2 Delivery Ventilator Ventilator Ventilator Ventilator 12/26/18 12/26/18 12/26/18 12/26/18 04:00 04:00 04:34 05:00 Temp 98.6 98.6 Pulse 74 65 Resp 15 15 B/P (MAP) 101/60 (74) 86/53 (64) Pulse Ox 97 99 98 O2 Delivery Ventilator Mechanical Ventilator Ventilator Ventilator 12/26/18 12/26/18 12/26/18 12/26/18 05:58 06:00 06:15 07:00 Pulse 57 58 Resp 16 16 15 B/P (MAP) 110/62 (78) 92/57 (69) Pulse Ox 99 98 99 98 O2 Delivery Ventilator Ventilator Ventilator Ventilator O2 Flow Rate 2.0 12/26/18 12/26/18 12/26/18 12/26/18 08:00 08:00 08:15 08:50 Temp 99.1 99.1 Pulse 56 Resp 16 B/P (MAP) 92/55 (67) Pulse Ox 98 99 99 O2 Delivery Ventilator Mechanical Ventilator Ventilator Ventilator 12/26/18 12/26/18 12/26/18 12/26/18 09:00 10:00 11:00 11:17 Pulse 72 72 75 Resp 20 24 21 B/P (MAP) 112/56 (74) 144/68 (93) 119/68 (85) Pulse Ox 99 100 100 98 O2 Delivery Ventilator Ventilator Ventilator Ventilator 12/26/18 12/26/18 12/26/18 12/26/18 12:00 12:00 12:23 13:00 Temp 97.3 97.3 Pulse 76 64 Resp 17 15 B/P (MAP) 135/69 (91) 108/62 (77) Pulse Ox 98 99 98 O2 Delivery Ventilator Mechanical Ventilator Ventilator Ventilator 12/26/18 12/26/18 14:00 15:34 Pulse 56 Resp 16 B/P (MAP) 133/68 (89) Pulse Ox 99 100 O2 Delivery Ventilator Ventilator Intake and Output 12/25/18 12/25/18 12/26/18 14:59 22:59 06:59 Intake Total 350 ml 551 ml 718 ml Output Total 800 ml 1025 ml 1000 ml Balance -450 ml -474 ml -282 ml ANN-MARIE CARY MD Dec 26, 2018 15:57
--- NOTE | 2018-12-26 16:06 | NUR ---
SS following up with discharge planning. Pt remains in ICU and is currently on the vent. SS will continue to follow for discharge planning.
--- NOTE | 2018-12-26 16:56 | PDOC ---
PROGRESS NOTES Assessment Assessment Subacute hypoxia/anoxia/ischemia brain injury. Cerebral edema. Toxic encephalopathy. Metabolic encephalopathy. Alcohol intoxication, alcohol level 231 on 12/10/18. GI bleeding. Shock from blood loss. Hypotensive events. Acute anemia. Acute respiratory failure. Pleural effusion. Hx of seizure? AFib was on Coumadin. HTN. HLD. COPD. Peripheral neuropathy. Thrombocytosis. RECOMMENDATIONS/PLAN: Life support in ICU. ASA 300 mg rectal daily. Consulted GI. Continue Vit B1 supplement. Treat medical diseases. Discussed with his father, sister and son in a great detail in ICU and showed them MRI pictures on 12/26/18. EEG on 12/18/17: No seizure activity. Borderline study. Brain MRI on 12/17/18 : No acute findings. Echo on 12/22/18: Refer to reports. CT on 12/26/18: Large regions of hypoattenuation within both occipital lobes, and to a lesser degree within the frontal and parietal lobes and agnieszka. Correlate for processes such as posterior reversible encephalopathy syndrome, versus multiple infarcts Brain MRI on 12/26/18: Cortically based cerebral edema is noted involving bifrontal lobes, right greater than left, as well as symmetric involvement of the bilateral occipital and parietal lobes. Differential considerations would include subacute ischemia from global hyperperfusion. Of note, there is not significant involvement of the basal ganglia as typically seen with cerebral hypoxic injury. Findings may also be seen with posterior reversible encephalopathy syndrome. HISTORY OF THE PRESENT ILLNESS: This is a 58-year-old male patient with history of above medical diseases and alcohol use/abuse presented to the emergency room on 12/10/18 with complaints of mechanical fall down 5 steps. He was intoxicated hit his head complained of neck pain and upper back pain and chest pain. He admitted that he had pain all over and he drank 9 beers that day. He he drinks regularly. Patient does take Coumadin for a Afib and valve disorder (?). Neurology was requested for consultation on 12/17/18 due to his prolonged mental status changes. He had MS changes and acute respiratory failure and was found to have acute blood loss from GI bleeding. He was transferred to ICU during night on 12/24/18. Past Medical History Cardiovascular: AFIB, HTN, Other Pulmonary: COPD CENTRAL NERVOUS SYSTEM: Periperal neuropathy, Seizure GI: GERD Psych: Anxiety, Addictions, Depression Rheumatologic: Other Renal/: Benign prostatic enlarg. Past Surgical History No pertinent history Family History Hypertension ALLERGY: NKDA MEDICATIONS: Refer to MAR SOCIAL HISTORY: He drinks alcohol heavily for many years. He uses marijuana. REVIEW OF SYSTEMS: Constitutional: No cachexia. Head: No current traumatic brain or head injury. Skin: No edema, or rash. Ear: No infection. Eyes: No vision loss or color blindness. Nose: No bleeding or purulent discharges. Hearing: No hearing decrease. Neck: No injury. Cardiac: AFib, HTN. Pulmonary: COPD. GI: GERD. Urinary/genital: No dysuria, incontinence, urinary retention. Endocrinologic: No cousin face, craniofacial dysmorphism, polydactyly. Skeletomuscular: No muscular atrophy, deformity. Neurological: see HP. Psychiatric: Alcohol and marijuana use/abuse. Otherwise, not [id number] review of systems. PHYSICAL EXAMINATION: General appearance is in subacute distress. HEENT: Normocephalic and nontraumatic. Eyes, nose, ears, and throat are unremarkable. Neck is supple. No lymphadenopathy. No crepitus. Cardiovascular: S1, S2, regular rate and rhythm. Pulmonary: Seemed clear to auscultation bilaterally. Abdomen: Bowel sounds are positive. Extremities: No rash, lesions, or edema. No restriction of range of motion NEUROLOGICAL EXAMINATION: On vent. Unresponsive. Not oriented to time, place and person. PERRL. EOMI not elicited. CN: no acute focal findings. Muscle tone: decreased. Muscle strength: No movements noted. DTR: 0-1 Plantar reflex: minimal response bilaterally Gait: Unable to walk. Sensory exam: minimal withdraw response noted to stimuli. Not able to access cerebellar signs. F-T-N test not performed due to unresponsiveness. Objective Objective Vital Signs Date Time Temp Pulse Resp B/P (MAP) Pulse Ox O2 Delivery O2 Flow Rate FiO2 12/26/18 15:34 100 Ventilator 12/26/18 14:00 56 16 133/68 (89) 12/26/18 12:00 97.3 97.3 12/26/18 06:15 2.0 Intake and Output 12/26/18 07:00 Intake Total 1619 ml Output Total 2925 ml Balance -1306 ml IV Total 1619 ml Output Urine Total 2875 ml Stool Total 50 ml # Bowel Movements 1 Vitals Signs Vitals VS - Last 72 Hours, by Label Date Time Temp Pulse Resp B/P (MAP) Pulse Ox O2 Delivery O2 Flow Rate FiO2 12/26/18 15:34 100 Ventilator 12/26/18 14:00 56 16 133/68 (89) 99 Ventilator 12/26/18 13:00 64 15 108/62 (77) 98 Ventilator 12/26/18 12:23 99 Ventilator 12/26/18 12:00 Mechanical Ventilator 12/26/18 12:00 97.3 76 17 135/69 (91) 98 Ventilator 97.3 12/26/18 11:17 98 Ventilator 12/26/18 11:00 75 21 119/68 (85) 100 Ventilator 12/26/18 10:00 72 24 144/68 (93) 100 Ventilator 12/26/18 09:00 72 20 112/56 (74) 99 Ventilator 12/26/18 08:50 99 Ventilator 12/26/18 08:15 99 Ventilator 12/26/18 08:00 Mechanical Ventilator 12/26/18 08:00 99.1 56 16 92/55 (67) 98 Ventilator 99.1 12/26/18 07:00 58 15 92/57 (69) 98 Ventilator 12/26/18 06:15 16 99 Ventilator 2.0 12/26/18 06:00 57 16 110/62 (78) 98 Ventilator 12/26/18 05:58 99 Ventilator 12/26/18 05:00 65 15 86/53 (64) 98 Ventilator 12/26/18 04:34 99 Ventilator 12/26/18 04:00 Mechanical Ventilator 12/26/18 04:00 98.6 74 15 101/60 (74) 97 Ventilator 98.6 12/26/18 03:00 78 16 147/76 (99) 98 Ventilator 12/26/18 02:03 99 Ventilator 12/26/18 02:00 82 16 153/70 (97) 100 Ventilator 12/26/18 01:00 66 16 123/69 (87) 99 Ventilator 12/26/18 00:00 Mechanical Ventilator 12/26/18 00:00 69 116/62 12/26/18 00:00 98.8 64 16 116/62 (80) 98 Ventilator 98.8 12/25/18 23:46 99 Ventilator 12/25/18 23:19 16 98 Ventilator 2.0 12/25/18 23:00 62 16 116/61 (79) 98 Ventilator 12/25/18 22:49 16 97 Ventilator 2.0 12/25/18 22:00 65 16 131/70 (90) 97 Ventilator 12/25/18 21:38 77 139/73 12/25/18 21:00 67 16 133/72 (92) 97 Ventilator 12/25/18 20:33 98 Ventilator 12/25/18 20:00 Mechanical Ventilator 12/25/18 20:00 98.6 66 16 130/72 (91) 98 Ventilator 98.6 12/25/18 19:00 66 15 123/71 (88) 98 Ventilator 12/25/18 18:14 98.4 69 16 120/67 98.4 12/25/18 18:00 72 16 120/67 (84) 97 Ventilator 12/25/18 17:30 98.8 72 19 127/67 98.8 12/25/18 17:18 98 Ventilator 12/25/18 17:15 98.9 74 18 116/66 98.9 12/25/18 17:00 76 18 119/71 (87) 98 Ventilator 12/25/18 16:05 99.1 76 18 112/53 99.1 12/25/18 16:05 97 2.0 12/25/18 16:00 Mechanical Ventilator 12/25/18 16:00 98.9 80 19 137/59 (85) 97 Ventilator 98.9 12/25/18 15:46 99.4 84 18 137/59 99.4 12/25/18 15:35 99 2.0 12/25/18 14:41 99 Ventilator 12/25/18 14:03 98 Ventilator 12/25/18 14:00 74 18 92/52 (65) 100 Ventilator 12/25/18 13:00 78 22 103/53 (70) 98 Ventilator 12/25/18 12:00 Mechanical Ventilator 12/25/18 12:00 99.0 82 22 114/54 (74) 98 Ventilator 99.0 12/25/18 11:45 98 Ventilator 12/25/18 11:00 78 22 98/58 (71) 98 Ventilator 12/25/18 10:00 82 22 100/56 (71) 97 Ventilator 12/25/18 09:00 92 22 110/63 (79) 97 Ventilator 12/25/18 08:38 100 Ventilator 12/25/18 08:02 98 Ventilator 12/25/18 08:00 Mechanical Ventilator 12/25/18 08:00 99.1 70 22 107/59 (75) 98 Ventilator 99.1 12/25/18 07:58 100 2.0 12/25/18 07:28 22 98 BiPAP/CPAP 12/25/18 07:00 76 22 95/58 (70) 98 Ventilator Laboratory Laboratory Laboratory Tests Test 12/25/18 22:15 12/26/18 05:40 12/26/18 08:00 12/26/18 14:15 White Blood Count 9.6 x10^3/uL (4.0-11.0) 8.5 x10^3/uL (4.0-11.0) 8.3 x10^3/uL (4.0-11.0) Red Blood Count 3.34 x10^6/uL (4.30-5.70) 3.34 x10^6/uL (4.30-5.70) 2.86 x10^6/uL (4.30-5.70) Hemoglobin 9.8 g/dL (13.0-17.5) 9.9 g/dL (13.0-17.5) 8.7 g/dL (13.0-17.5) Hematocrit 29.1 % (39.0-53.0) 29.4 % (39.0-53.0) 25.7 % (39.0-53.0) Mean Corpuscular Volume 87 fL (79-100) 88 fL (79-100) 90 fL (79-100) Mean Corpuscular Hemoglobin 30 pg (25-35) 30 pg (25-35) 31 pg (25-35) Mean Corpuscular Hemoglobin Concent 34 g/dL (31-37) 34 g/dL (31-37) 34 g/dL (31-37) Red Cell Distribution Width 16.4 % (11.5-14.5) 16.8 % (11.5-14.5) 17.4 % (11.5-14.5) Platelet Count 180 x10^3/uL (140-400) 184 x10^3/uL (140-400) 176 x10^3/uL (140-400) Prothrombin Time 15.9 SEC (11.7-14.0) Prothromb Time International Ratio 1.3 (0.8-1.1) Sodium Level 154 mmol/L (136-145) Potassium Level 3.9 mmol/L (3.5-5.1) Chloride Level 120 mmol/L (98-107) Carbon Dioxide Level 26 mmol/L (21-32) Anion Gap 8 (6-14) Blood Urea Nitrogen 30 mg/dL (8-26) Creatinine 0.9 mg/dL (0.7-1.3) Estimated GFR (Cockcroft-Gault) 87.0 BUN/Creatinine Ratio 33 (6-20) Glucose Level 152 mg/dL (70-99) Calcium Level 8.4 mg/dL (8.5-10.1) Phosphorus Level 2.4 mg/dL (2.6-4.7) Magnesium Level 2.2 mg/dL (1.8-2.4) Total Bilirubin 0.5 mg/dL (0.2-1.0) Aspartate Amino Transf (AST/SGOT) 519 U/L (15-37) Alanine Aminotransferase (ALT/SGPT) 982 U/L (16-63) Alkaline Phosphatase 32 U/L (46-116) Total Protein 4.9 g/dL (6.4-8.2) Albumin 2.5 g/dL (3.4-5.0) Albumin/Globulin Ratio 1.0 (1.0-1.7) Triglycerides Level 50 mg/dL (0-150) O2 Saturation 97 % (92-99) Arterial Blood pH 7.38 (7.35-7.45) Arterial Blood pCO2 at Patient Temp 38 mmHg (35-46) Arterial Blood pO2 at Patient Temp 102 mmHg (75-108) Arterial Blood HCO3 22 mmol/L (21-28) Arterial Blood Base Excess -3 mmol/L (-3-3) FiO2 35% Microbiology 12/24/18 Blood Culture - Preliminary, Resulted NO GROWTH AFTER 2 DAYS 12/20/18 Urine Culture - Final, Complete 12/20/18 Urine Culture Result 1 (AMARA) - Final, Complete Medication Medications Current Medications Amiodarone HCl 900 mg/Dextrose 518 ml @ 17 mls/hr CONT PRN IV .; Start 12/25/18 at 20:00; Status Cancel Amiodarone HCl 900 mg/Dextrose 518 ml @ 33 mls/hr CONT PRN IV SEE I/O RECORD; Start 12/26/18 at 12:45 Amiodarone HCl 900 mg/Dextrose 518 ml @ 0 mls/hr CONT PRN IV SEE I/O RECORD Last administered on 12/25/18at 20:15; Start 12/25/18 at 20:15; Stop 12/25/18 at 20:15; Status DC Aspirin (Aspirin Rectal Supp) 300 mg DAILY [place] Last administered on 12/26/18at 12:38; Start 12/26/18 at 11:00 Heparin Sodium (Porcine) (Heparin Sodium) 1,950 unit PRN Q6HRS PRN IV FOR UFH LEVEL LESS THAN 0.2; Start 12/26/18 at 14:45 Heparin Sodium/ Dextrose 500 ml @ 18.72 mls/ hr CONT PRN IV PER PROTOCOL Last administered on 12/26/18at 15:34; Start 12/26/18 at 14:45 Pantoprazole Sodium (PROTONIX VIAL for IV PUSH) 40 mg BID IVP ; Start 12/26/18 at 21:00 Potassium Acetate 70 meq/Potassium Phosphate 17 mmol/ Magnesium Sulfate 10 meq/Calcium Gluconate 10 meq/ Multivitamins 10 ml/Chromium/ Copper/Manganese/ Seleni/Zn 1 ml/ Thiamine HCl 100 mg/Folic Acid 1 mg/Total Parenteral Nutrition/Amino Acids/Dextrose/ Fat Emulsion Intravenous 1,992 ml @ 83 mls/hr TPN CONT IV ; Start 12/26/18 at 22:00; Stop 12/27/18 at 21:59 Sodium Chloride 50 meq/Potassium Acetate 70 meq/ Potassium Phosphate 13.6 mmol/Magnesium Sulfate 10 meq/ Calcium Gluconate 10 meq/ Multivitamins 10 ml/Chromium/ Copper/Manganese/ Seleni/Zn 1 ml/ Total Parenteral Nutrition/Amino Acids/Dextrose/ Fat Emulsion Intravenous 1,512 ml @ 63 mls/hr TPN CONT IV Last administered on 12/25/18at 21:37; Start 12/25/18 at 22:00; Stop 12/26/18 at 21:59 Comment Review of Relevant I have reviewed the following items robert (where applicable) has been applied. JAMEL BONILLA MD Dec 26, 2018 16:55
--- NOTE | 2018-12-26 18:00 | NUR ---
RN spoke with entire family in waiting room about plan of care for patient and updated them on patient condition. RN answered all of family questions regarding neuro status and results of scans extensively. Pt remains off of sedation at this time- opens eyes and nods head.
[2018-12-26] MEDS: fentaNYL PF VIAL 100 MCG/2 ML VIAL IV PRN (20:25)
[2018-12-26 21:43] LABS: HEMATOCRIT 31.1 % (39.0-53.0); HEMOGLOBIN 10.6 g/dL (13.0-17.5); RED BLOOD COUNT 3.57 x10^6/uL (4.30-5.70); RED CELL DISTRIBUTION WIDTH 17.1 % (11.5-14.5); WHITE BLOOD COUNT 10.8 x10^3/uL (4.0-11.0)
[2018-12-26] MEDS: PANTOPRAZOLE IV PUSH 40 MG VIAL. IVP SCH (21:52)
[2018-12-26] MEDS ORDERED: TOTAL PARENTERAL NUTRITION IV SCH ×11 (22:00)
[2018-12-26] MEDS ORDERED: [UNRECOGNIZED DRUG - OTHER] IV SCH ×11 (22:00)
[2018-12-26] MEDS ORDERED: AMINO ACID IV SCH ×11 (22:00)
[2018-12-26] MEDS ORDERED: DEXTROSE 70% IV SCH ×11 (22:00)
[2018-12-26] MEDS: HEPARIN for IV BOLUS 10,000 UNIT/10 ML VIAL. IV PRN (23:47)
[2018-12-27] VITALS (24 sets, daily range): BP systolic 102–182; BP diastolic 54–91
[2018-12-27] MEDS: fentaNYL PF VIAL 100 MCG/2 ML VIAL IV PRN ×6 (00:24→23:30)
[2018-12-27] MEDS: AMIODARONE 450 MG in IV DEXTROSE 5% 250 ML IV PRN ×2 (03:58→19:19)
[2018-12-27] MEDS: CEFEPIME HCL IV Push 2 GM VIAL. IVP SCH ×3 (05:00→21:34)
[2018-12-27] MEDS: hydrALAZINE 20 MG/ML VIAL. IVP SCH ×4 (05:02→23:27)
[2018-12-27 05:09] LABS: PROTHROMBIN TIME PATIENT 15.9 SEC (11.7-14.0)
[2018-12-27 05:46] LABS: CALCIUM 8.4 mg/dL (8.5-10.1); CREATININE 0.9 mg/dL (0.7-1.3); MAGNESIUM 1.9 mg/dL (1.8-2.4); PHOSPHORUS 2.8 mg/dL (2.6-4.7); POTASSIUM 3.6 mmol/L (3.5-5.1)
[2018-12-27] MEDS: ENALAPRILAT 1.25 MG/ML VIAL. IVP SCH ×3 (05:51→21:32)
--- NOTE | 2018-12-27 07:56 | RAD ---
PORTABLE CHEST 1V History: Respiratory failure Comparison: 12/26/2018 Findings: Single view of the chest is submitted. There again has been a median sternotomy. There is again valvular prosthesis. There is again right upper extremity PICC with the tip near the cavoatrial junction. Tip of the endotracheal tube tip likely terminates about 3 to 4 cm from colleen. Pericardial cardiac silhouette is stable. There is no pneumothorax. There is again small left pleural effusion with adjacent airspace opacity, somewhat improved aeration of the left lung base. Hazy opacity of the right lung base is similar. Impression: 1. There is again small left pleural effusion with adjacent atelectasis/infiltrate, hazy opacity of the right lung base overall similar. Electronically signed by: Jason Badillo MD (12/27/2018 7:53 AM) [facility]
[2018-12-27] MEDS: POTASSIUM CHLORIDE 20 MEQ TABLET.ER. PO SCH (08:00)
--- NOTE | 2018-12-27 08:22 | PDOC ---
Infectious Disease Note Subjective Subjective Remains intubated, FiO2 35% No fevers TPN Amiorodone gtt Heparin gtt ROS ROS unobtainable Vital Sign Vital Signs Vital Signs Date Time Temp Pulse Resp B/P (MAP) Pulse Ox O2 Delivery O2 Flow Rate FiO2 12/27/18 07:20 99 Ventilator 12/27/18 07:00 90 16 117/62 (80) 12/27/18 04:25 2.0 12/27/18 04:00 98.8 98.8 Physical Exam PHYSICAL EXAM GENERAL: Propped up in bed, awake, calm, orally intubated HEENT: Pupils are equally round and reactive. ETT NECK: Supple. LUNGS: Clear anteriorly HEART: S1, S2. irregular ABDOMEN: Obese, soft, no guarding, bowel sounds present. Rectal tube : Peng EXTREMITIES: No gross edema or cyanosis. Scabs left knee - no redness/warmth/swelling SKIN: Warm to touch. No signs of rash. some healing scraps/echymosis NEUROLOGIC: Awake, no response to questions RUE PICC Labs Lab Laboratory Tests Test 12/26/18 14:15 12/26/18 21:30 12/27/18 04:50 White Blood Count 8.3 x10^3/uL (4.0-11.0) 10.8 x10^3/uL (4.0-11.0) Red Blood Count 2.86 x10^6/uL (4.30-5.70) 3.57 x10^6/uL (4.30-5.70) Hemoglobin 8.7 g/dL (13.0-17.5) 10.6 g/dL (13.0-17.5) Hematocrit 25.7 % (39.0-53.0) 31.1 % (39.0-53.0) Mean Corpuscular Volume 90 fL (79-100) 87 fL (79-100) Mean Corpuscular Hemoglobin 31 pg (25-35) 30 pg (25-35) Mean Corpuscular Hemoglobin Concent 34 g/dL (31-37) 34 g/dL (31-37) Red Cell Distribution Width 17.4 % (11.5-14.5) 17.1 % (11.5-14.5) Platelet Count 176 x10^3/uL (140-400) 240 x10^3/uL (140-400) Heparin Anti-Xa Act, Unfractionated < 0.10 IU/mL (0.30-0.70) 0.18 IU/mL (0.30-0.70) Prothrombin Time 15.9 SEC (11.7-14.0) Prothromb Time International Ratio 1.3 (0.8-1.1) Sodium Level 150 mmol/L (136-145) Potassium Level 3.6 mmol/L (3.5-5.1) Chloride Level 114 mmol/L (98-107) Carbon Dioxide Level 28 mmol/L (21-32) Anion Gap 8 (6-14) Blood Urea Nitrogen 19 mg/dL (8-26) Creatinine 0.9 mg/dL (0.7-1.3) Estimated GFR (Cockcroft-Gault) 87.0 Glucose Level 146 mg/dL (70-99) Calcium Level 8.4 mg/dL (8.5-10.1) Phosphorus Level 2.8 mg/dL (2.6-4.7) Magnesium Level 1.9 mg/dL (1.8-2.4) CXR 1. There is again small left pleural effusion with adjacent atelectasis/infiltrate, hazy opacity of the right lung base overall similar. Micro Nabil MRI Cortically based cerebral edema is noted involving bifrontal lobes, right greater than left, as well as symmetric involvement of the bilateral occipital and parietal lobes. Differential considerations would include subacute ischemia from global hyperperfusion. Of note, there is not significant involvement of the basal ganglia as typically seen with cerebral hypoxic injury. Findings may also be seen with posterior reversible encephalopathy syndrome. There is no midline shift identified. Objective Assessment UGI bleed s/p EGD 12/24 - Non-variceal bleeding, distal esophagus. Inflammatory/Dieulafoy possible, aggravated by coagulopathy. -S/P PRBCs 12/24 12/25 Acute Resp failure - intubated 12/24 - blood seen on intubation Afib on Amiodarone Transaminitis - ? reactive vs med/TPN vs other - nml lipase Encephaloapathy Fever ? aspiration, PRBCs, infection -better Leukocytosis - better - nml lactic Suspected aspiration Sinusitis Dysphagia failed bedside swallow Recent Alcohol withdrawal s/p fall while intoxicated ? seizure Coagualopathy - Appreciated Heme eval Valvular disorder - Aortic stenosis s/p mechanical aortic valve - cults neg CAD Plan Plan of Care Cont Cefepime, Flagyl and Micafungin 12/24 Continue Dapto, monitor resp status if worsens may need additional coverage as Dapto does not cover pneumonia but likely aspiration Previously on Zosyn and doxy 12/20 - 12/24 F/u repeat Blood cults neg so far Electrolytes per primary Transaminitis per GI D/w nursing Remains Critically ill Attending Co-Sign The patient was seen and interviewed as well as examined at the bedside. The chart was reviewed. The case was discussed. Agree with the plan of care. BC WAGONER APRN Dec 27, 2018 08:22 TAE GELLER MD Dec 27, 2018 12:23
[2018-12-27] MEDS: CALCIUM CARBONATE 500 MG TABLET PO SCH ×3 (08:33→14:51)
[2018-12-27] MEDS: ELECTROLYTE (ICU) PROTOCOL. MC SCH (08:33)
[2018-12-27] MEDS: LORazepam 1 MG TABLET PO SCH ×2 (08:33→21:00)
[2018-12-27] MEDS: METOPROLOL TART IMMED RELEASE 25 MG TABLET. PO SCH ×2 (08:33→21:00)
[2018-12-27] MEDS: ASPIRIN RECTAL 300 MG SUPP. PR SCH (08:41)
[2018-12-27] MEDS: NICOTINE 21MG PATCH. TD SCH (08:41)
[2018-12-27] MEDS: PANTOPRAZOLE IV PUSH 40 MG VIAL. IVP SCH ×2 (08:41→21:17)
[2018-12-27] MEDS: IPRATRPIUM/ALBUTEROL 0.5/2.5MG 3 ML NEBU. NEB SCH ×4 (08:54→19:12)
[2018-12-27] MEDS: HEPARIN for IV BOLUS 10,000 UNIT/10 ML VIAL. IV PRN ×2 (09:18→21:23)
[2018-12-27 09:19] LABS: BASE EXCESS ABG 1 mmol/L (-3-3); HCO3 ABG 24 mmol/L (21-28); PCO2 ABG 34 mmHg (35-46); PO2 ABG 94 mmHg (75-108); SAT O2 ABG 97 % (92-99)
--- NOTE | 2018-12-27 09:21 | PDOC ---
PULMONARY PROGRESS NOTES Subjective Pt. is off sedation currently on PS 5/5 35% Pt. is able to follow simple commands nursing report no asynchrony overnight, minimal secretions Vitals Vital Signs Date Time Temp Pulse Resp B/P (MAP) Pulse Ox O2 Delivery O2 Flow Rate FiO2 12/27/18 08:44 Ventilator 12/27/18 07:20 99 12/27/18 07:00 90 16 117/62 (80) 12/27/18 04:25 2.0 12/27/18 04:00 98.8 98.8 Comments unable to obtain ROS 2/2 intubation General: Alert Lungs: Clear Cardiovascular: S1, S2 Abdomen: Soft Neuro Exam: Alert Extremities: Other (trace edema ) Skin: Warm, Dry Labs Laboratory Tests Test 12/25/18 11:32 12/25/18 14:00 12/25/18 22:15 12/26/18 05:40 Lactic Acid Level 0.9 mmol/L (0.4-2.0) White Blood Count 8.5 x10^3/uL (4.0-11.0) 9.6 x10^3/uL (4.0-11.0) 8.5 x10^3/uL (4.0-11.0) Red Blood Count 2.32 x10^6/uL (4.30-5.70) 3.34 x10^6/uL (4.30-5.70) 3.34 x10^6/uL (4.30-5.70) Hemoglobin 6.8 g/dL (13.0-17.5) 9.8 g/dL (13.0-17.5) 9.9 g/dL (13.0-17.5) Hematocrit 20.2 % (39.0-53.0) 29.1 % (39.0-53.0) 29.4 % (39.0-53.0) Mean Corpuscular Volume 87 fL (79-100) 87 fL (79-100) 88 fL (79-100) Mean Corpuscular Hemoglobin 29 pg (25-35) 30 pg (25-35) 30 pg (25-35) Mean Corpuscular Hemoglobin Concent 34 g/dL (31-37) 34 g/dL (31-37) 34 g/dL (31-37) Red Cell Distribution Width 17.7 % (11.5-14.5) 16.4 % (11.5-14.5) 16.8 % (11.5-14.5) Platelet Count 168 x10^3/uL (140-400) 180 x10^3/uL (140-400) 184 x10^3/uL (140-400) Prothrombin Time 15.9 SEC (11.7-14.0) Prothromb Time International Ratio 1.3 (0.8-1.1) Sodium Level 154 mmol/L (136-145) Potassium Level 3.9 mmol/L (3.5-5.1) Chloride Level 120 mmol/L (98-107) Carbon Dioxide Level 26 mmol/L (21-32) Anion Gap 8 (6-14) Blood Urea Nitrogen 30 mg/dL (8-26) Creatinine 0.9 mg/dL (0.7-1.3) Estimated GFR (Cockcroft-Gault) 87.0 BUN/Creatinine Ratio 33 (6-20) Glucose Level 152 mg/dL (70-99) Calcium Level 8.4 mg/dL (8.5-10.1) Phosphorus Level 2.4 mg/dL (2.6-4.7) Magnesium Level 2.2 mg/dL (1.8-2.4) Total Bilirubin 0.5 mg/dL (0.2-1.0) Aspartate Amino Transf (AST/SGOT) 519 U/L (15-37) Alanine Aminotransferase (ALT/SGPT) 982 U/L (16-63) Alkaline Phosphatase 32 U/L (46-116) Total Protein 4.9 g/dL (6.4-8.2) Albumin 2.5 g/dL (3.4-5.0) Albumin/Globulin Ratio 1.0 (1.0-1.7) Triglycerides Level 50 mg/dL (0-150) Test 12/26/18 08:00 12/26/18 14:15 12/26/18 21:30 12/27/18 04:50 O2 Saturation 97 % (92-99) Arterial Blood pH 7.38 (7.35-7.45) Arterial Blood pCO2 at Patient Temp 38 mmHg (35-46) Arterial Blood pO2 at Patient Temp 102 mmHg (75-108) Arterial Blood HCO3 22 mmol/L (21-28) Arterial Blood Base Excess -3 mmol/L (-3-3) FiO2 35% White Blood Count 8.3 x10^3/uL (4.0-11.0) 10.8 x10^3/uL (4.0-11.0) Red Blood Count 2.86 x10^6/uL (4.30-5.70) 3.57 x10^6/uL (4.30-5.70) Hemoglobin 8.7 g/dL (13.0-17.5) 10.6 g/dL (13.0-17.5) Hematocrit 25.7 % (39.0-53.0) 31.1 % (39.0-53.0) Mean Corpuscular Volume 90 fL (79-100) 87 fL (79-100) Mean Corpuscular Hemoglobin 31 pg (25-35) 30 pg (25-35) Mean Corpuscular Hemoglobin Concent 34 g/dL (31-37) 34 g/dL (31-37) Red Cell Distribution Width 17.4 % (11.5-14.5) 17.1 % (11.5-14.5) Platelet Count 176 x10^3/uL (140-400) 240 x10^3/uL (140-400) Heparin Anti-Xa Act, Unfractionated < 0.10 IU/mL (0.30-0.70) 0.18 IU/mL (0.30-0.70) Prothrombin Time 15.9 SEC (11.7-14.0) Prothromb Time International Ratio 1.3 (0.8-1.1) Sodium Level 150 mmol/L (136-145) Potassium Level 3.6 mmol/L (3.5-5.1) Chloride Level 114 mmol/L (98-107) Carbon Dioxide Level 28 mmol/L (21-32) Anion Gap 8 (6-14) Blood Urea Nitrogen 19 mg/dL (8-26) Creatinine 0.9 mg/dL (0.7-1.3) Estimated GFR (Cockcroft-Gault) 87.0 Glucose Level 146 mg/dL (70-99) Calcium Level 8.4 mg/dL (8.5-10.1) Phosphorus Level 2.8 mg/dL (2.6-4.7) Magnesium Level 1.9 mg/dL (1.8-2.4) Laboratory Tests Test 12/26/18 14:15 12/26/18 21:30 12/27/18 04:50 White Blood Count 8.3 x10^3/uL (4.0-11.0) 10.8 x10^3/uL (4.0-11.0) Red Blood Count 2.86 x10^6/uL (4.30-5.70) 3.57 x10^6/uL (4.30-5.70) Hemoglobin 8.7 g/dL (13.0-17.5) 10.6 g/dL (13.0-17.5) Hematocrit 25.7 % (39.0-53.0) 31.1 % (39.0-53.0) Mean Corpuscular Volume 90 fL (79-100) 87 fL (79-100) Mean Corpuscular Hemoglobin 31 pg (25-35) 30 pg (25-35) Mean Corpuscular Hemoglobin Concent 34 g/dL (31-37) 34 g/dL (31-37) Red Cell Distribution Width 17.4 % (11.5-14.5) 17.1 % (11.5-14.5) Platelet Count 176 x10^3/uL (140-400) 240 x10^3/uL (140-400) Heparin Anti-Xa Act, Unfractionated < 0.10 IU/mL (0.30-0.70) 0.18 IU/mL (0.30-0.70) Prothrombin Time 15.9 SEC (11.7-14.0) Prothromb Time International Ratio 1.3 (0.8-1.1) Sodium Level 150 mmol/L (136-145) Potassium Level 3.6 mmol/L (3.5-5.1) Chloride Level 114 mmol/L (98-107) Carbon Dioxide Level 28 mmol/L (21-32) Anion Gap 8 (6-14) Blood Urea Nitrogen 19 mg/dL (8-26) Creatinine 0.9 mg/dL (0.7-1.3) Estimated GFR (Cockcroft-Gault) 87.0 Glucose Level 146 mg/dL (70-99) Calcium Level 8.4 mg/dL (8.5-10.1) Phosphorus Level 2.8 mg/dL (2.6-4.7) Magnesium Level 1.9 mg/dL (1.8-2.4) Medications Active Scripts Medications Dose Route/Sig Max Daily Dose Days Date Category Lorazepam 1 Mg Tablet 1 Tab PO BID 12/10/18 Reported Percocet 7.5-325 Mg Tablet (Oxycodone/Acetaminophen) 1 Each Tablet 1 Tab PO PRN Q6HRS PRN 12/10/18 Reported Coumadin (Warfarin Sodium) 5 Mg Tablet 1 Tab PO DAILY 10/06/17 Reported Lisinopril 20 Mg Tablet 1 Tab PO DAILY 10/06/17 Reported Impression . 1. Acute respiratory failure secondary to severe metabolic acidosis. 2. Metabolic acidosis. 3. Septic shock versus acute volemic shock. 4. Leukocytosis. 5. Acute drop in hemoglobin. 6. Alcoholism. 7. Hyponatremia, improved. 8. Protein malnutrition. 9. Metabolic toxic encephalopathy. 10. Possible aspiration. 11. Fever. 12. History of seizures. 13. Chronic obstructive pulmonary disease. 14. Hypertension. 15. Peripheral neuropathy. 16. Status post aortic valve replacement for aortic stenosis. 17. NON VARICEAL BLEED UPON EGD Plan . 1. continue ventilator support, SBT extubate pending blood gas 2. cont. TPN 3.Recs per GI, monitor H/H transfuse PRN 4. recs per neurology 5. antibiotics per ID 6. CXR: 1. There is again small left pleural effusion with adjacent atelectasis/infiltrate, hazy opacity of the right lung base overall similar. 7. Aortic stenosis s/p mechanical aortic valve; Echo with LVEF 55%. 8. PaFIb cont amio recs per cardiology 9. D/W with RN DVT/GI PPX: heparin gtt/protonix BID YOHAN COWAN MD Dec 27, 2018 09:21
[2018-12-27 09:34] LABS: FIO2 ABG 35
--- NOTE | 2018-12-27 09:59 | NUR ---
Patient was placed on weaning trial at 0845. Patient tolerated well. ABG done. Results called to Pulm. Orders received to extubate. Patient extubated at 0955. Patient was able to cough and give one word answers to questions. Placed on 4.L NC. Vital signs stable. Will continue to monitor.
[2018-12-27] MEDS: DAPTOmycin (GENERIC) IVPB 460 MG in IV NORMAL SALINE 50ML 50 ML IV SCH (10:58)
--- NOTE | 2018-12-27 11:01 | PDOC ---
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 Differential considerations would include subacute ischemia from global hyperperfusion. Of note, there is not significant involvement of the basal ganglia as typically seen with cerebral hypoxic injury. Findings may also be seen with posterior reversible encephalopathy syndrome PEGGY AVALOS 12/26/18 Pt seen and examined in ICU Pt remains sedated and intubated Pupils are equal round, reactive, and sensitive to light Charts and labs reviewed Talked to son about the pt's condition, stating that his CT results have changed and may indicate multiple infarcts but that we will be following up with an MRI to get conclusive results. Pt's son was understanding. AC 16/500/3.0/35% 5.0 PEEP AST 519, down from 1390 ALT 982, down from 1059 DW RN and son 12/25/18 Pt seen and examined in the ICU Sedated and intubated Was resting in bed Charts and labs reviewed AC 16/500/3.0/35% 5.0 PEEP AST 1390, ALT 1059 Poor prognosis PEGGY RN 12/24/18 Pt seen and examined bedside INC soa, tachy, dark stool x 2 altered mental status Was resting in BED PEGGY RN; Charts and labs reviewed Replace potassium Failed swallow test Poor prognosis Check serum osmolality 12/17/18 Pt seen and examined in ICU PT still sedated PEGGY RN that she tried to wean the patient off of Precedex but he continued to be combative so she had to continue the sedation meds Consulted neurology to make sure there isn't other pathology causing his mental status change Charts and labs reviewed NA 143 12/16/18 Pt seen and examined in the ICU Pt is sedated with IV Precedex PEGGY AVALOS Pt was combative in the morning Charts and labs reviewed Na: 140 12/15/18 Pt seen and examined in the ICU Pt's son was seen leaving the room Pt is still sedated with Precedex Pt requested pain medications Chart and labs reviewed Hyponatremia resolved Pt is bradycardic with rate of 50 D/w RN 12/14/18 Pt seen and examined in the ICU Pt still sedated with Precedex INR 1.1 Hyponatremia has resolved PEGGY RN Reviewed chart 12/13/18 Pt seen and examined in the ICU Pt was combative and trying to get out of bed all morning. Pt was given Ativan, Haldol, Benadryl, Zyprexa and finally Fentanyl for patient safety. He was comfortably snoring. Discussed with son who was glad to see the pt finally asleep. PEGGY RN Vitals/I&O Vitals/I&O: Vital Signs Date Time Temp Pulse Resp B/P (MAP) Pulse Ox O2 Delivery O2 Flow Rate FiO2 12/27/18 10:00 88 128/70 (89) 96 Nasal Cannula 4.0 12/27/18 09:00 16 12/27/18 08:00 98.6 98.6 I & O 12/26/18 12/26/18 12/27/18 15:00 23:00 07:00 Intake Total 150 ml 922 ml 1632.6 ml Output Total 820 ml 630 ml 535 ml Balance -670 ml 292 ml 1097.6 ml Physical Exam Physical Exam: GENERAL: Propped up in bed, awake, calm, HEENT: Pupils are equally round and reactive. ETT NECK: Supple. LUNGS: Clear anteriorly HEART: S1, S2. irregular ABDOMEN: Obese, soft, no guarding, bowel sounds present. Rectal tube : Peng EXTREMITIES: No gross edema or cyanosis. Scabs left knee - no redness/warmth/swelling SKIN: Warm to touch. No signs of rash. some healing scraps/echymosis NEUROLOGIC: Awake, no response to questions RUE PICC General: Alert, No acute distress Heart: Regular rate, Normal S1, Normal S2, No murmurs, Other Lungs: Clear Abdomen: Normal bowel sounds, Soft, No tenderness, No masses (HEPATOMEGALY) Extremities: No cyanosis, Other (trace bilateral LE edema ) Skin: No rashes, No significant lesion Labs Labs: Laboratory Tests Test 12/26/18 14:15 12/26/18 21:30 12/27/18 04:50 12/27/18 09:15 White Blood Count 8.3 x10^3/uL (4.0-11.0) 10.8 x10^3/uL (4.0-11.0) Red Blood Count 2.86 x10^6/uL (4.30-5.70) 3.57 x10^6/uL (4.30-5.70) Hemoglobin 8.7 g/dL (13.0-17.5) 10.6 g/dL (13.0-17.5) Hematocrit 25.7 % (39.0-53.0) 31.1 % (39.0-53.0) Mean Corpuscular Volume 90 fL (79-100) 87 fL (79-100) Mean Corpuscular Hemoglobin 31 pg (25-35) 30 pg (25-35) Mean Corpuscular Hemoglobin Concent 34 g/dL (31-37) 34 g/dL (31-37) Red Cell Distribution Width 17.4 % (11.5-14.5) 17.1 % (11.5-14.5) Platelet Count 176 x10^3/uL (140-400) 240 x10^3/uL (140-400) Heparin Anti-Xa Act, Unfractionated < 0.10 IU/mL (0.30-0.70) 0.18 IU/mL (0.30-0.70) Prothrombin Time 15.9 SEC (11.7-14.0) Prothromb Time International Ratio 1.3 (0.8-1.1) Sodium Level 150 mmol/L (136-145) Potassium Level 3.6 mmol/L (3.5-5.1) Chloride Level 114 mmol/L (98-107) Carbon Dioxide Level 28 mmol/L (21-32) Anion Gap 8 (6-14) Blood Urea Nitrogen 19 mg/dL (8-26) Creatinine 0.9 mg/dL (0.7-1.3) Estimated GFR (Cockcroft-Gault) 87.0 Glucose Level 146 mg/dL (70-99) Calcium Level 8.4 mg/dL (8.5-10.1) Phosphorus Level 2.8 mg/dL (2.6-4.7) Magnesium Level 1.9 mg/dL (1.8-2.4) O2 Saturation 97 % (92-99) Arterial Blood pH 7.47 (7.35-7.45) Arterial Blood pCO2 at Patient Temp 34 mmHg (35-46) Arterial Blood pO2 at Patient Temp 94 mmHg (75-108) Arterial Blood HCO3 24 mmol/L (21-28) Arterial Blood Base Excess 1 mmol/L (-3-3) FiO2 35 Review of Systems Review of Systems: Denies pain Co weakness Assessment and Plan Assessmemt and Plan Problems Medical Problems: (1) Alcohol abuse Status: Acute (2) Closed head injury Status: Acute Assessment Cerebral edema Respiratory failure EtOH Withdrawal Liver shock Hypokalemia GI Bleed Plan ICU monitoring Speech therapy PT/OT Appreciate neuro, GI, ID, pulm, cardio input Trend Hgb Trend LFTs Continue IV K+ DVT prophylaxis Full code Comment Review of Relevant I have reviewed the following items robert (where applicable) has been applied. Medications: Current Medications Medications (Trade) Dose Ordered Sig/Siddharth Route PRN Reason Start Time Stop Time Status Last Admin Dose Admin Aspirin (Aspirin Rectal Supp) 300 mg DAILY NH 12/26/18 11:00 12/27/18 08:41 Potassium Acetate 70 meq/Potassium Phosphate 17 mmol/ Magnesium Sulfate 10 meq/Calcium Gluconate 10 meq/ Multivitamins 10 ml/Chromium/ Copper/Manganese/ Seleni/Zn 1 ml/ Thiamine HCl 100 mg/Folic Acid 1 mg/Total Parenteral Nutrition/Amino Acids/Dextrose/ Fat Emulsion Intravenous 1,992 ml @ 83 mls/hr TPN CONT IV 12/26/18 22:00 12/27/18 21:59 12/26/18 21:53 Heparin Sodium/ Dextrose 500 ml @ 18.72 mls/ hr CONT PRN IV PER PROTOCOL 12/26/18 14:45 12/26/18 15:34 Heparin Sodium (Porcine) (Heparin Sodium) 1,950 unit PRN Q6HRS PRN IV FOR UFH LEVEL LESS THAN 0.2 12/26/18 14:45 12/27/18 09:18 Pantoprazole Sodium (PROTONIX VIAL for IV PUSH) 40 mg BID IVP 12/26/18 21:00 12/27/18 08:41 Amiodarone HCl 450 mg/Dextrose 259 ml @ 17 mls/hr CONT PRN IV SEE I/O RECORD 12/27/18 02:00 12/27/18 03:58 PAT SANABRIA III DO Dec 27, 2018 11:01
--- NOTE | 2018-12-27 11:10 | PDOC ---
G I PROGRESS NOTE Reason for Follow-up GI bleed Subjective Extubated/alert Physical Exam Lungs decreased BS CV II/ JUAN CARLOS ABD +BS, soft, mildly distended Review of Relevant I have reviewed the following items robert (where applicable) has been applied. Labs Laboratory Tests Test 12/25/18 11:32 12/25/18 14:00 12/25/18 22:15 12/26/18 05:40 Lactic Acid Level 0.9 mmol/L (0.4-2.0) White Blood Count 8.5 x10^3/uL (4.0-11.0) 9.6 x10^3/uL (4.0-11.0) 8.5 x10^3/uL (4.0-11.0) Red Blood Count 2.32 x10^6/uL (4.30-5.70) 3.34 x10^6/uL (4.30-5.70) 3.34 x10^6/uL (4.30-5.70) Hemoglobin 6.8 g/dL (13.0-17.5) 9.8 g/dL (13.0-17.5) 9.9 g/dL (13.0-17.5) Hematocrit 20.2 % (39.0-53.0) 29.1 % (39.0-53.0) 29.4 % (39.0-53.0) Mean Corpuscular Volume 87 fL (79-100) 87 fL (79-100) 88 fL (79-100) Mean Corpuscular Hemoglobin 29 pg (25-35) 30 pg (25-35) 30 pg (25-35) Mean Corpuscular Hemoglobin Concent 34 g/dL (31-37) 34 g/dL (31-37) 34 g/dL (31-37) Red Cell Distribution Width 17.7 % (11.5-14.5) 16.4 % (11.5-14.5) 16.8 % (11.5-14.5) Platelet Count 168 x10^3/uL (140-400) 180 x10^3/uL (140-400) 184 x10^3/uL (140-400) Prothrombin Time 15.9 SEC (11.7-14.0) Prothromb Time International Ratio 1.3 (0.8-1.1) Sodium Level 154 mmol/L (136-145) Potassium Level 3.9 mmol/L (3.5-5.1) Chloride Level 120 mmol/L (98-107) Carbon Dioxide Level 26 mmol/L (21-32) Anion Gap 8 (6-14) Blood Urea Nitrogen 30 mg/dL (8-26) Creatinine 0.9 mg/dL (0.7-1.3) Estimated GFR (Cockcroft-Gault) 87.0 BUN/Creatinine Ratio 33 (6-20) Glucose Level 152 mg/dL (70-99) Calcium Level 8.4 mg/dL (8.5-10.1) Phosphorus Level 2.4 mg/dL (2.6-4.7) Magnesium Level 2.2 mg/dL (1.8-2.4) Total Bilirubin 0.5 mg/dL (0.2-1.0) Aspartate Amino Transf (AST/SGOT) 519 U/L (15-37) Alanine Aminotransferase (ALT/SGPT) 982 U/L (16-63) Alkaline Phosphatase 32 U/L (46-116) Total Protein 4.9 g/dL (6.4-8.2) Albumin 2.5 g/dL (3.4-5.0) Albumin/Globulin Ratio 1.0 (1.0-1.7) Triglycerides Level 50 mg/dL (0-150) Test 12/26/18 08:00 12/26/18 14:15 12/26/18 21:30 12/27/18 04:50 O2 Saturation 97 % (92-99) Arterial Blood pH 7.38 (7.35-7.45) Arterial Blood pCO2 at Patient Temp 38 mmHg (35-46) Arterial Blood pO2 at Patient Temp 102 mmHg (75-108) Arterial Blood HCO3 22 mmol/L (21-28) Arterial Blood Base Excess -3 mmol/L (-3-3) FiO2 35% White Blood Count 8.3 x10^3/uL (4.0-11.0) 10.8 x10^3/uL (4.0-11.0) Red Blood Count 2.86 x10^6/uL (4.30-5.70) 3.57 x10^6/uL (4.30-5.70) Hemoglobin 8.7 g/dL (13.0-17.5) 10.6 g/dL (13.0-17.5) Hematocrit 25.7 % (39.0-53.0) 31.1 % (39.0-53.0) Mean Corpuscular Volume 90 fL (79-100) 87 fL (79-100) Mean Corpuscular Hemoglobin 31 pg (25-35) 30 pg (25-35) Mean Corpuscular Hemoglobin Concent 34 g/dL (31-37) 34 g/dL (31-37) Red Cell Distribution Width 17.4 % (11.5-14.5) 17.1 % (11.5-14.5) Platelet Count 176 x10^3/uL (140-400) 240 x10^3/uL (140-400) Heparin Anti-Xa Act, Unfractionated < 0.10 IU/mL (0.30-0.70) 0.18 IU/mL (0.30-0.70) Prothrombin Time 15.9 SEC (11.7-14.0) Prothromb Time International Ratio 1.3 (0.8-1.1) Sodium Level 150 mmol/L (136-145) Potassium Level 3.6 mmol/L (3.5-5.1) Chloride Level 114 mmol/L (98-107) Carbon Dioxide Level 28 mmol/L (21-32) Anion Gap 8 (6-14) Blood Urea Nitrogen 19 mg/dL (8-26) Creatinine 0.9 mg/dL (0.7-1.3) Estimated GFR (Cockcroft-Gault) 87.0 Glucose Level 146 mg/dL (70-99) Calcium Level 8.4 mg/dL (8.5-10.1) Phosphorus Level 2.8 mg/dL (2.6-4.7) Magnesium Level 1.9 mg/dL (1.8-2.4) Test 12/27/18 09:15 O2 Saturation 97 % (92-99) Arterial Blood pH 7.47 (7.35-7.45) Arterial Blood pCO2 at Patient Temp 34 mmHg (35-46) Arterial Blood pO2 at Patient Temp 94 mmHg (75-108) Arterial Blood HCO3 24 mmol/L (21-28) Arterial Blood Base Excess 1 mmol/L (-3-3) FiO2 35 Laboratory Tests Test 12/26/18 14:15 12/26/18 21:30 12/27/18 04:50 12/27/18 09:15 White Blood Count 8.3 x10^3/uL (4.0-11.0) 10.8 x10^3/uL (4.0-11.0) Red Blood Count 2.86 x10^6/uL (4.30-5.70) 3.57 x10^6/uL (4.30-5.70) Hemoglobin 8.7 g/dL (13.0-17.5) 10.6 g/dL (13.0-17.5) Hematocrit 25.7 % (39.0-53.0) 31.1 % (39.0-53.0) Mean Corpuscular Volume 90 fL (79-100) 87 fL (79-100) Mean Corpuscular Hemoglobin 31 pg (25-35) 30 pg (25-35) Mean Corpuscular Hemoglobin Concent 34 g/dL (31-37) 34 g/dL (31-37) Red Cell Distribution Width 17.4 % (11.5-14.5) 17.1 % (11.5-14.5) Platelet Count 176 x10^3/uL (140-400) 240 x10^3/uL (140-400) Heparin Anti-Xa Act, Unfractionated < 0.10 IU/mL (0.30-0.70) 0.18 IU/mL (0.30-0.70) Prothrombin Time 15.9 SEC (11.7-14.0) Prothromb Time International Ratio 1.3 (0.8-1.1) Sodium Level 150 mmol/L (136-145) Potassium Level 3.6 mmol/L (3.5-5.1) Chloride Level 114 mmol/L (98-107) Carbon Dioxide Level 28 mmol/L (21-32) Anion Gap 8 (6-14) Blood Urea Nitrogen 19 mg/dL (8-26) Creatinine 0.9 mg/dL (0.7-1.3) Estimated GFR (Cockcroft-Gault) 87.0 Glucose Level 146 mg/dL (70-99) Calcium Level 8.4 mg/dL (8.5-10.1) Phosphorus Level 2.8 mg/dL (2.6-4.7) Magnesium Level 1.9 mg/dL (1.8-2.4) O2 Saturation 97 % (92-99) Arterial Blood pH 7.47 (7.35-7.45) Arterial Blood pCO2 at Patient Temp 34 mmHg (35-46) Arterial Blood pO2 at Patient Temp 94 mmHg (75-108) Arterial Blood HCO3 24 mmol/L (21-28) Arterial Blood Base Excess 1 mmol/L (-3-3) FiO2 35 Microbiology 12/24/18 Blood Culture - Preliminary, Resulted NO GROWTH AFTER 3 DAYS 12/20/18 Urine Culture - Final, Complete 12/20/18 Urine Culture Result 1 (AMARA) - Final, Complete Medications Current Medications Fentanyl Citrate (Fentanyl 2ml Vial) 50 mcg 1X ONCE IV Last administered on at 20:03; Start 12/10/18 at 19:15; Stop 12/10/18 at 19:16; Status DC Iohexol (Omnipaque 300 Mg/ml) 75 ml 1X ONCE IV Last administered on 12/10/18at 19:43; Start 12/10/18 at 19:15; Stop 12/10/18 at 19:16; Status DC Sodium Chloride 1,000 ml @ 1,000 mls/hr 1X ONCE IV Last administered on 12/10/18at 19:45; Start 12/10/18 at 19:45; Stop 12/10/18 at 20:44; Status DC Morphine Sulfate (Morphine Sulfate) 2 mg PRN Q2HR PRN IV PAIN Last administered on 12/11/18at 12:03; Start 12/10/18 at 20:15; Stop 12/11/18 at 20:14; Status DC Sodium Chloride 1,000 ml @ 100 mls/hr Q10H IV Last administered on 12/11/18at 08:10; Start 12/10/18 at 20:07; Stop 12/11/18 at 12:21; Status DC Diphtheria/ Tetanus/Acell Pertussis (Boostrix) 0.5 ml ONCE ONCE VAX IM Last administered on 12/10/18at 21:07; Start 12/10/18 at 20:15; Stop 12/10/18 at 20:16; Status DC Ondansetron HCl (Zofran) 4 mg PRN Q6HRS PRN IV NAUSEA/VOMITING 1ST CHOICE Last administered on 12/21/18 03:27; Start 12/11/18 at 05:30 Multivitamins (Thera M Plus) 1 tab DAILY PO Last administered on 12/12/18 08:14; Start 12/11/18 at 09:00; Stop 12/13/18 at 11:25; Status DC Folic Acid (Folic Acid) 1 mg DAILY PO Last administered on 12/12/18 08:14; Start 12/11/18 at 09:00; Stop 12/13/18 at 11:25; Status DC Chlordiazepoxide (Librium) 50 mg PRN Q1HR PRN PO For CIWA 8-14 2ND CHOICE Last administered on 12/18/18 18:03; Start 12/11/18 at 05:30 Chlordiazepoxide (Librium) 100 mg PRN Q1HR PRN PO For CIWA 15+ 2ND CHOICE Last administered on 12/13/18 01:11; Start 12/11/18 at 05:30 Lorazepam (Ativan) 4 mg PRN Q1HR PRN PO For CIWA 8-14 Last administered on 12/13/18 02:48; Start 12/11/18 at 05:30 Lorazepam (Ativan) 8 mg PRN Q1HR PRN PO For CIWA 15 or greater; Start 12/11/18 at 05:30 Lorazepam (Ativan Inj) 2 mg PRN Q1HR PRN IV For CIWA 8-14 Last administered on 12/27/18 05:50; Start 12/11/18 at 05:30 Lorazepam (Ativan Inj) 4 mg PRN Q1HR PRN IV For CIWA 15 or greater Last administered on 12/26/18 22:11; Start 12/11/18 at 05:30 Haloperidol Lactate (Haldol Inj) 5 mg PRN Q4HRS PRN IVP Hallucinatns,Confusn,Delirium Last administered on 12/25/18 09:04; Start 12/11/18 at 05:30 Diphenhydramine HCl (Benadryl) 25 mg PRN Q15MIN PRN IVP EPS symptoms 2'Haldol admin Last administered on 12/18/18 03:44; Start 12/11/18 at 05:30 Clonidine HCl (Catapres) 0.1 mg PRN Q1HR PRN PO SBP > 180 or DBP > 100, MRX3; Start 12/11/18 at 05:30 Sodium Chloride 1,000 ml @ 60 mls/hr [id number] IV Last administered on 12/21/18at 07:26; Start 12/11/18 at 13:00; Stop 12/22/18 at 14:53; Status DC Sodium Chloride 150 ml @ 50 mls/hr 1X ONCE IV Last administered on 12/11/18at 13:48; Start 12/11/18 at 13:00; Stop 12/11/18 at 15:59; Status DC Lisinopril (Prinivil) 20 mg DAILY PO Last administered on 12/19/18at 08:00; Start 12/11/18 at 14:00; Stop 12/21/18 at 15:19; Status DC Oxycodone/ Acetaminophen (Percocet 7.5/ 325) 1 tab PRN Q6HRS PRN PO MODERATE TO SEVERE PAIN Last administered on 12/19/18at 06:19; Start 12/11/18 at 13:30 Calcium Carbonate/ Glycine (Oscal) 500 mg TIDAFTMEAL PO Last administered on 12/19/18at 17:22; Start 12/12/18 at 13:00 Ziprasidone (Geodon Im) 20 mg 1X ONCE IM ; Start 12/13/18 at 05:00; Stop 12/13/18 at 18:51; Status DC Lorazepam 100 mg/ Sodium Chloride 100 ml @ 2 mls/hr CONT PRN IV SEDATION Last administered on 12/13/18at 19:56; Start 12/13/18 at 07:00; Stop 12/18/18 at 16:33; Status DC Olanzapine (ZyPREXA IM) 10 mg PRN Q8HRS PRN IM AGITATION Last administered on 12/19/18at 00:05; Start 12/13/18 at 08:30 Olanzapine (ZyPREXA IM) 10 mg STK-MED ONCE IM ; Start 12/13/18 at 08:37; Stop 12/13/18 at 08:38; Status DC Fentanyl Citrate (Fentanyl 2ml Vial) 75 mcg 1X ONCE IV ; Start 12/13/18 at 09:45; Stop 12/13/18 at 19:20; Status DC Fentanyl Citrate (Fentanyl 2ml Vial) 100 mcg STK-MED ONCE .ROUTE ; Start 12/13/18 at 09:47; Stop 12/13/18 at 09:48; Status DC Fentanyl Citrate (Fentanyl 2ml Vial) 75 mcg PRN Q30MIN PRN IV PAIN Last administered on 12/27/18at 06:14; Start 12/13/18 at 10:00 Multivitamins 10 ml/Thiamine HCl 100 mg/Folic Acid 1 mg/Sodium Chloride 1,011.2 ml @ 100 mls/ hr DAILY IV Last administered on 12/18/18at 08:55; Start 12/14/18 at 12:00; Stop 12/18/18 at 19:07; Status DC Enoxaparin Sodium (Lovenox 80mg Syringe) 80 mg Q12HR SQ Last administered on 12/21/18at 07:50; Start 12/13/18 at 14:30; Stop 12/21/18 at 12:56; Status DC Warfarin Sodium (Coumadin Per Pharmacy) 1 each PRN DAILY PRN MC SEE COMMENTS Last administered on 12/24/18at 11:27; Start 12/13/18 at 14:15; Stop 12/24/18 at 16:10; Status DC Warfarin Sodium (Coumadin) 7.5 mg 1X WARF ONCE PO ; Start 12/13/18 at 16:00; Stop 12/13/18 at 16:01; Status DC Nicotine (Nicoderm Cq 21mg) 1 patch DAILY TD Last administered on 12/27/18at 08:41; Start 12/14/18 at 09:00 Dexmedetomidine HCl 400 mcg/ Sodium Chloride 100 ml @ 0 mls/hr CONT PRN IV PER PROTOCOL Last administered on 12/18/18at 00:12; Start 12/14/18 at 01:45; Stop 12/18/18 at 16:33; Status DC Sodium Chloride 500 ml @ 500 mls/hr 1X PRN PRN IV SEE COMMENTS; Start 12/14/18 at 01:45; Stop 12/20/18 at 11:56; Status DC Atropine Sulfate (ATROPINE 0.5mg SYRINGE) 0.5 mg PRN Q5MIN PRN IV SEE COMMENTS; Start 12/14/18 at 01:45; Stop 12/20/18 at 11:55; Status DC Nicotine (Nicoderm Cq 21mg) 1 patch STK-MED ONCE TD ; Start 12/14/18 at 01:57; Stop 12/14/18 at 01:57; Status DC Lorazepam (Ativan) 1 mg BID PO Last administered on 12/19/18at 08:00; Start 12/14/18 at 09:00 Warfarin Sodium (Coumadin) 5 mg DAILY16 PO ; Start 12/14/18 at 16:00; Stop 12/14/18 at 09:21; Status DC Warfarin Sodium (Coumadin) 7.5 mg 1X WARF ONCE PO ; Start 12/14/18 at 16:00; Stop 12/14/18 at 16:01; Status DC Enalaprilat (Vasotec Inj) 1.25 mg Q8HRS IVP Last administered on 12/27/18at 05:51; Start 12/14/18 at 15:00 Nicardipine HCl 50 mg/Sodium Chloride 250 ml @ 25 mls/hr CONT PRN IV SEE I/O RECORD Last administered on 12/16/18at 09:58; Start 12/14/18 at 17:45; Stop 12/18/18 at 16:33; Status DC Nicardipine HCl 50 mg/Sodium Chloride 250 ml @ 25 mls/hr CONT PRN IV SEE I/O RECORD; Start 12/14/18 at 18:00; Status UNV Warfarin Sodium (Coumadin) 7.5 mg 1X WARF ONCE PO ; Start 12/15/18 at 16:00; Stop 12/15/18 at 16:01; Status DC Warfarin Sodium (Coumadin - No Dose Today) 1 each 1X WARF ONCE MC ; Start 12/16/18 at 16:00; Stop 12/16/18 at 16:01; Status DC Warfarin Sodium (Coumadin) 7.5 mg 1X WARF ONCE PO Last administered on 12/18/18at 08:54; Start 12/17/18 at 16:00; Stop 12/17/18 at 16:01; Status DC Ceftriaxone Sodium (Rocephin) 1 gm Q24H IVP Last administered on 12/20/18at 12:08; Start 12/18/18 at 12:30; Stop 12/20/18 at 15:14; Status DC Metoprolol Tartrate (Lopressor) 25 mg BID PO Last administered on 12/19/18at 08 :01; Start 12/18/18 at 12:30 Acetaminophen/ Codeine Phosphate (Tylenol #3) 1 tab PRN Q6HRS PRN PO PAIN MILD TO MOD; Start 12/18/18 at 12:00; Stop 12/18/18 at 12:55; Status DC Lactobacillus Rhamnosus (Culturelle) 1 cap BID PO Last administered on 12/19/18 at 08:00; Start 12/18/18 at 21:00; Stop 12/24/18 at 11:17; Status DC Acetaminophen (Tylenol) 650 mg PRN Q6HRS PRN PO FEVER Last administered on 12/19/18at 17:23; Start 12/18/18 at 13:00 Warfarin Sodium (Coumadin) 7.5 mg 1X WARF ONCE PO Last administered on 12/18/18at 18:03; Start 12/18/18 at 16:00; Stop 12/18/18 at 16:11; Status DC Albuterol/ Ipratropium (Duoneb) 3 ml 1X ONCE NEB Last administered on 12/19/18at 07:15; Start 12/19/18 at 07:15; Stop 12/19/18 at 07:16; Status DC Ziprasidone (Geodon Im) 10 mg 1X ONCE IM Last administered on 12/19/18at 07:42; Start 12/19/18 at 07:15; Stop 12/19/18 at 07:16; Status DC Warfarin Sodium (Coumadin) 7.5 mg 1X WARF ONCE PO Last administered on 12/19/18at 17:23; Start 12/19/18 at 16:00; Stop 12/19/18 at 16:01; Status DC Potassium Chloride (Klor-Con) 40 meq 1X ONCE PO Last administered on 12/19/18at 16:12; Start 12/19/18 at 14:00; Stop 12/19/18 at 14:01; Status DC Potassium Chloride (Klor-Con) 20 meq DAILYWBKFT PO ; Start 12/20/18 at 08:00 Doxycycline Hyclate (Vibra-Tab) 100 mg BID PO Last administered on 12/19/18at 17:22; Start 12/19/18 at 17:30; Stop 12/19/18 at 17:57; Status DC Doxycycline Hyclate 100 mg/ Dextrose 100 ml @ 50 mls/hr Q12HR IV Last administered on 12/23/18at 22:17; Start 12/19/18 at 21:00; Stop 12/24/18 at 10:15; Status DC Metoprolol Tartrate (Lopressor Vial) 5 mg PRN Q6HRS PRN IVP HYPERTENSION Last administered on 12/24/18at 07:22; Start 12/19/18 at 18:00 Scopolamine (Transderm-Scop) 1 patch Q3DAYS TD Last administered on 12/26/18at 09:29; Start 12/20/18 at 09:00 Potassium Chloride/Water 100 ml @ 100 mls/hr Q1H IV Last administered on 12/20/18at 10:36; Start 12/20/18 at 06:00; Stop 12/20/18 at 09:59; Status DC Potassium Chloride (Klor-Con) 40 meq 1X ONCE PO ; Start 12/20/18 at 08:00; Stop 12/20/18 at 08:01; Status DC Acetaminophen (Tylenol Supp) 650 mg PRN Q6HRS PRN NC MILD PAIN / TEMP Last administered on 12/20/18at 14:59; Start 12/20/18 at 07:15 Warfarin Sodium (Coumadin) 7.5 mg 1X WARF ONCE PO ; Start 12/20/18 at 16:00; Stop 12/20/18 at 16:01; Status DC Hydralazine HCl (Apresoline Inj) 10 mg PRN Q4HRS PRN IVP ELEVATED BP, SEE COMMENTS Last administered on 12/22/18at 11:07; Start 12/20/18 at 14:30 Potassium Chloride (Klor-Con) 40 meq 1X ONCE PO ; Start 12/20/18 at 14:30; Stop 12/20/18 at 14:41; Status DC Potassium Chloride (Klor-Con) 20 meq DAILYWBKFT PO ; Start 12/21/18 at 08:00; Stop 12/25/18 at 11:25; Status DC Albuterol/ Ipratropium (Duoneb) 3 ml RTQID NEB Last administered on 12/27/18at 08:54; Start 12/20/18 at 16:00 Piperacillin Sod/ Tazobactam Sod 3.375 gm/Sodium Chloride 50 ml @ 100 mls/hr Q6HRS IV Last administered on 12/24/18at 05:09; Start 12/20/18 at 16:00; Stop 12/24/18 at 10:15; Status DC Amino Acids/ Glycerin/ Electrolytes 1,000 ml @ 75 mls/hr [id number] IV Last admin istered on 12/25/18at 09:05; Start 12/21/18 at 13:00; Stop 12/25/18 at 21:59; Status DC Warfarin Sodium (Coumadin) 1 mg 1X WARF ONCE PO ; Start 12/21/18 at 16:00; Stop 12/21/18 at 16:01; Status DC Sodium Chloride 1,000 ml @ 75 mls/hr 1X ONCE IV Last administered on 12/21/18at 13:49; Start 12/21/18 at 13:15; Stop 12/22/18 at 02:34; Status DC Potassium Chloride/Water 100 ml @ 100 mls/hr Q1H IV Last administered on 12/22/18at 11:03; Start 12/22/18 at 06:00; Stop 12/22/18 at 09:59; Status DC Sodium Chloride 1,000 ml @ 75 mls/hr 1X ONCE IV Last administered on 12/22/18at 14:49; Start 12/22/18 at 14:30; Stop 12/23/18 at 03:49; Status DC Potassium Chloride 20 meq/ Sodium Chloride 1,010 ml @ 75 mls/hr 1X ONCE IV Last administered on 12/22/18at 17:51; Start 12/22/18 at 16:00; Stop 12/23/18 at 05:27; Status DC Hydralazine HCl (Apresoline Inj) 10 mg Q6HRS IVP Last administered on 12/27/18at 05:02; Start 12/22/18 at 18:00 Potassium Chloride/Water 100 ml @ 100 mls/hr Q1H IV Last administered on 12/23/18at 14:01; Start 12/23/18 at 06:00; Stop 12/23/18 at 09:59; Status DC Potassium Chloride/Water 50 ml @ 50 mls/hr Q1H IV ; Start 12/23/18 at 11:15; Stop 12/23/18 at 13:14; Status UNV Potassium Chloride/Water 100 ml @ 100 mls/hr Q1H IV ; Start 12/23/18 at 11:30; Stop 12/23/18 at 13:04; Status DC Warfarin Sodium (Coumadin - No Dose Today) 1 each 1X WARF ONCE MC Last administered on 12/23/18at 16:00; Start 12/23/18 at 16:00; Stop 12/23/18 at 16:01; Status DC Pantoprazole Sodium (PROTONIX VIAL for IV PUSH) 40 mg DAILYAC IVP Last administered on 12/23/18at 15:21; Start 12/23/18 at 15:00; Stop 12/24/18 at 10:43; Status DC Cefepime HCl (Maxipime) 2 gm Q8HRS IVP Last administered on 12/27/18 05:00; Start 12/24/18 at 10:00 Metronidazole 100 ml @ 100 mls/hr Q8HRS IV Last administered on 12/27/18at 05:00; Start 12/24/18 at 10:00 Daptomycin 460 mg/ Sodium Chloride 50 ml @ 100 mls/hr Q24H IV Last administered on 12/27/18at 10:58; Start 12/24/18 at 11:00 Micafungin Sodium 100 mg/Dextrose 100 ml @ 100 mls/hr Q24H IV Last administered on 12/26/18at 13:22; Start 12/24/18 at 12:00 Pantoprazole Sodium 80 mg/ Sodium Chloride 100 ml @ 10 mls/hr Q10H IV Last administered on 12/26/18at 13:23; Start 12/24/18 at 11:00; Stop 12/26/18 at 15:12; Status DC Lorazepam (Ativan) 1 mg PRN Q6HRS PRN PO ANXIETY / AGITATION 1ST CHOICE; Start 12/24/18 at 10:45 Ondansetron HCl (Zofran) 4 mg PRN Q6HRS PRN IV NAUSEA/VOMITING; Start 12/24/18 at 10:45; Stop 12/24/18 at 10:52; Status DC Info (Icu Electrolyte Protocol) 1 ea DAILY MC Last administered on 12/25/18at 08:50; Start 12/25/18 at 09:00 Sodium Chloride (Normal Saline Flush) 3 ml QSHIFT PRN IV AFTER MEDS AND BLOOD DRAWS; Start 12/24/18 at 10:45 Sodium Chloride 1,000 ml @ 2,130 mls/hr Q29M IV Last administered on 12/24/18at 12:13; Start 12/24/18 at 10:50; Stop 12/24/18 at 11:50; Status DC Sodium Chloride 500 ml @ 1,000 mls/hr PRN Q30MIN PRN IV SEE COMMENTS; Start 12/24/18 at 11:00 Norepinephrine Bitartrate 250 ml @ 0 mls/hr CONT PRN IV SEE COMMENTS Last administered on 12/24/18at 20:22; Start 12/24/18 at 11:00; Stop 12/27/18 at 09:21; Status DC Dobutamine HCl/ Dextrose 250 ml @ 0 mls/hr CONT PRN IV SEE COMMENTS; Start 12/24/18 at 11:00 Sodium Bicarbonate (Sodium Bicarb Adult 8.4% Syr) 100 meq 1X ONCE IV Last administered on 12/24/18at 11:16; Start 12/24/18 at 11:15; Stop 12/24/18 at 11:16; Status DC Phytonadione (Vitamin K Ampule) 5 mg 1X ONCE SQ Last administered on 12/24/18at 12:24; Start 12/24/18 at 11:15; Stop 12/24/18 at 11:22; Status DC Succinylcholine Chloride (Anectine) 200 mg STK-MED ONCE .ROUTE ; Start 12/24/18 at 11:20; Stop 12/24/18 at 11:21; Status DC Midazolam HCl (Versed) 5 mg STK-MED ONCE .ROUTE ; Start 12/24/18 at 11:21; Stop 12/24/18 at 11:21; Status DC Warfarin Sodium (Coumadin - No Dose Today) 1 each 1X WARF ONCE MC ; Start 12/24/18 at 16:00; Stop 12/24/18 at 22:25; Status DC Atropine Sulfate (ATROPINE 1mg SYRINGE) 1 mg STK-MED ONCE .ROUTE ; Start 12/24/18 at 11:30; Stop 12/24/18 at 11:30; Status DC Epinephrine HCl (Adrenalin) 1 mg STK-MED ONCE .ROUTE ; Start 12/24/18 at 11:30; Stop 12/24/18 at 11:30; Status DC Succinylcholine Chloride (Anectine) 60 mg 1X ONCE IV Last administered on 12/24/18at 12:04; Start 12/24/18 at 11:45; Stop 12/24/18 at 11:46; Status DC Midazolam HCl (Versed) 2 mg 1X ONCE IV Last administered on 12/24/18at 11:30; Start 12/24/18 at 11:45; Stop 12/24/18 at 11:46; Status DC Epinephrine HCl (EPINEPHrine SYRINGE) 1 mg 1X ONCE IV ; Start 12/24/18 at 11:45; Stop 12/24/18 at 11:46; Status DC Sodium Chloride 1,000 ml @ 1,000 mls/hr 1X ONCE IV ; Start 12/24/18 at 11:45; Stop 12/24/18 at 12:44; Status DC Midazolam HCl 100 ml @ 5 mls/hr CONT PRN IV SEE I/O RECORD Last administered on 12/25/18at 23:40; Start 12/24/18 at 12:00; Stop 12/27/18 at 09:21; Status DC Fentanyl Citrate 30 ml @ 0 mls/hr CONT PRN IV SEE PROTOCOL Last administered on 12/26/18at 05:26; Start 12/24/18 at 12:00 Midazolam HCl (Versed) 2 mg 1X ONCE IV ; Start 12/24/18 at 12:15; Stop 12/24/18 at 12:16; Status DC Metoclopramide HCl (Reglan Vial) 10 mg 1X ONCE IVP Last administered on 12/24/18at 15:00; Start 12/24/18 at 12:45; Stop 12/24/18 at 12:46; Status DC Vasopressin 40 unit/Dextrose 102 ml @ 6 mls/hr CONT PRN IV SEE I/O RECORD Last administered on 12/26/18at 12:38; Start 12/24/18 at 13:00; Stop 12/27/18 at 09:21; Status DC Albumin Human 500 ml @ As Directed STK-MED ONCE IV ; Start 12/24/18 at 14:37; Stop 12/24/18 at 14:37; Status DC Albumin Human 500 ml @ 125 mls/hr 1X ONCE IV Last administered on 12/24/18at 14:39; Start 12/24/18 at 14:45; Stop 12/24/18 at 18:44; Status DC Digoxin (Lanoxin) 500 mcg 1X ONCE IV Last administered on 12/24/18at 15:30; Start 12/24/18 at 15:30; Stop 12/24/18 at 15:31; Status DC Digoxin (Lanoxin) 500 mcg STK-MED ONCE .ROUTE ; Start 12/24/18 at 15:07; Stop 12/24/18 at 15:08; Status DC Phytonadione (Vitamin K Ampule) 10 mg 1X ONCE SQ Last administered on 12/24/18at 17:36; Start 12/24/18 at 15:45; Stop 12/24/18 at 15:49; Status DC Amiodarone HCl 150 mg/Dextrose 103 ml @ 618 mls/hr 1X ONCE IV Last administered on 12/24/18at 17:09; Start 12/24/18 at 16:00; Stop 12/24/18 at 16:09; Status DC Amiodarone HCl 900 mg/Dextrose 518 ml @ 0 mls/hr CONT PRN IV SEE I/O RECORD Last administered on 12/24/18at 17:55; Start 12/24/18 at 16:00; Stop 12/24/18 at 17:55; Status DC Phytonadione (Vitamin K Ampule) 10 mg 1X ONCE SQ ; Start 12/24/18 at 17:00; Stop 12/24/18 at 17:01; Status DC Potassium Chloride/Water 50 ml @ 50 mls/hr Q1H IV Last administered on 12/25/18at 12:37; Start 12/25/18 at 09:00; Stop 12/25/18 at 12:59; Status DC Potassium Chloride/Water 50 ml @ 0 mls/hr Q1H IV ; Start 12/25/18 at 08:30; Stop 12/25/18 at 11:31; Status UNV Info (Tpn Per Pharmacy) 1 each PRN DAILY PRN MC SEE COMMENTS Last administered on 12/26/18at 15:02; Start 12/25/18 at 09:45 Sodium Chloride 50 meq/Potassium Acetate 70 meq/ Potassium Phosphate 13.6 mmol/Magnesium Sulfate 10 meq/ Calcium Gluconate 10 meq/ Multivitamins 10 ml/Chromium/ Copper/Manganese/ Seleni/Zn 1 ml/ Total Parenteral Nutrition/Amino Acids/Dextrose/ Fat Emulsion Intravenous 1,512 ml @ 63 mls/hr TPN CONT IV Last administered on 12/25/18at 21:37; Start 12/25/18 at 22:00; Stop 12/26/18 at 21:59; Status DC Amiodarone HCl 900 mg/Dextrose 518 ml @ 17 mls/hr CONT PRN IV .; Start 12/25/18 at 20:00; Status Cancel Amiodarone HCl 900 mg/Dextrose 518 ml @ 0 mls/hr CONT PRN IV SEE I/O RECORD Last administered on 12/25/18at 20:15; Start 12/25/18 at 20:15; Stop 12/25/18 at 20:15; Status DC Aspirin (Aspirin Rectal Supp) 300 mg DAILY NC Last administered on 12/27/18at 08:41; Start 12/26/18 at 11:00 Amiodarone HCl 900 mg/Dextrose 518 ml @ 33 mls/hr CONT PRN IV SEE I/O RECORD; Start 12/26/18 at 12:45; Stop 12/27/18 at 01:06; Status DC Potassium Acetate 70 meq/Potassium Phosphate 17 mmol/ Magnesium Sulfate 10 meq/Calcium Gluconate 10 meq/ Multivitamins 10 ml/Chromium/ Copper/Manganese/ Seleni/Zn 1 ml/ Thiamine HCl 100 mg/Folic Acid 1 mg/Total Parenteral Nutr ition/Amino Acids/Dextrose/ Fat Emulsion Intravenous 1,992 ml @ 83 mls/hr TPN CONT IV Last administered on 12/26/18at 21:53; Start 12/26/18 at 22:00; Stop 12/27/18 at 21:59 Heparin Sodium/ Dextrose 500 ml @ 18.72 mls/ hr CONT PRN IV PER PROTOCOL Last administered on 12/26/18at 15:34; Start 12/26/18 at 14:45 Heparin Sodium (Porcine) (Heparin Sodium) 1,950 unit PRN Q6HRS PRN IV FOR UFH LEVEL LESS THAN 0.2 Last administered on 12/27/18at 09:18; Start 12/26/18 at 14:45 Pantoprazole Sodium (PROTONIX VIAL for IV PUSH) 40 mg BID IVP Last administered on 12/27/18at 08:41; Start 12/26/18 at 21:00 Amiodarone HCl 450 mg/Dextrose 259 ml @ 17 mls/hr CONT PRN IV SEE I/O RECORD Last administered on 12/27/18at 03:58; Start 12/27/18 at 02:00 Active Scripts Active Reported Lorazepam 1 Mg Tablet 1 Tab PO BID Percocet 7.5-325 Mg Tablet (Oxycodone/Acetaminophen) 1 Each Tablet 1 Tab PO PRN Q6HRS PRN Coumadin (Warfarin Sodium) 5 Mg Tablet 1 Tab PO DAILY Lisinopril 20 Mg Tablet 1 Tab PO DAILY Vitals/I & O Vital Sign - Last 24 Hours 12/26/18 12/26/18 12/26/18 12/26/18 11:17 12:00 12:00 12:23 Temp 97.3 97.3 Pulse 76 Resp 17 B/P (MAP) 135/69 (91) Pulse Ox 98 98 99 O2 Delivery Ventilator Ventilator Mechanical Ventilator Ventilator 12/26/18 12/26/18 12/26/18 12/26/18 13:00 14:00 15:00 15:15 Pulse 64 56 64 Resp 15 16 16 B/P (MAP) 108/62 (77) 133/68 (89) 136/67 (90) 132/72 (92) Pulse Ox 98 99 100 O2 Delivery Ventilator Ventilator Ventilator 12/26/18 12/26/18 12/26/18 12/26/18 15:30 15:34 15:45 16:00 Pulse 78 Resp 17 B/P (MAP) 128/68 (88) 125/68 (87) 117/63 (81) Pulse Ox 100 99 O2 Delivery Ventilator Ventilator 12/26/18 12/26/18 12/26/18 12/26/18 16:00 17:00 18:00 19:00 Temp 98.9 98.9 Pulse 82 75 78 Resp 21 20 16 B/P (MAP) 107/75 (86) 146/77 (100) 166/82 (110) Pulse Ox 98 99 100 O2 Delivery Mechanical Ventilator Ventilator Ventilator Ventilator 12/26/18 12/26/18 12/26/18 12/26/18 19:39 20:00 20:00 20:25 Temp 99.2 99.2 Pulse 76 Resp 21 B/P (MAP) 149/82 (104) Pulse Ox 100 98 100 O2 Delivery Ventilator Mechanical Ventilator Ventilator Ventilator 12/26/18 12/26/18 12/26/18 12/26/18 20:55 21:00 21:50 22:00 Pulse 82 100 Resp 20 20 B/P (MAP) 157/77 (103) 177/100 (125) Pulse Ox 100 100 100 100 O2 Delivery Ventilator Ventilator Ventilator O2 Flow Rate 2.0 12/26/18 12/26/18 12/26/18 12/26/18 22:09 23:00 23:20 23:47 Pulse 100 86 84 Resp 20 B/P (MAP) 177/100 150/80 (103) 150/80 Pulse Ox 100 100 O2 Delivery Ventilator Ventilator 12/26/18 12/27/18 12/27/18 12/27/18 23:56 00:00 00:24 00:52 Temp 99.9 99.9 Pulse 96 Resp 21 B/P (MAP) 132/70 (90) Pulse Ox 98 98 100 O2 Delivery Mechanical Ventilator Ventilator Ventilator Ventilator O2 Flow Rate 2.0 12/27/18 12/27/18 12/27/18 12/27/18 00:55 01:00 01:58 02:00 Pulse 86 76 Resp 20 20 B/P (MAP) 102/57 (72) 112/63 (79) Pulse Ox 100 100 100 100 O2 Delivery Ventilator Ventilator Ventilator O2 Flow Rate 2.0 12/27/18 12/27/18 12/27/18 12/27/18 02:28 02:40 03:00 03:55 Pulse 76 Resp 20 B/P (MAP) 107/60 (76) Pulse Ox 100 100 100 100 O2 Delivery Ventilator Ventilator Ventilator O2 Flow Rate 2.0 2.0 12/27/18 12/27/18 12/27/18 12/27/18 04:00 04:04 04:25 05:00 Temp 98.8 98.8 Pulse 76 99 Resp 21 25 B/P (MAP) 115/68 (84) 139/72 (94) Pulse Ox 98 98 100 O2 Delivery Ventilator Mechanical Ventilator Ventilator O2 Flow Rate 2.0 12/27/18 12/27/18 12/27/18 12/27/18 05:02 05:20 05:51 06:00 Pulse 80 100 86 Resp 16 B/P (MAP) 139/72 139/72 103/54 (70) Pulse Ox 100 98 O2 Delivery Ventilator Ventilator 12/27/18 12/27/18 12/27/18 12/27/18 06:44 07:00 07:20 08:00 Pulse 90 Resp 16 B/P (MAP) 117/62 (80) Pulse Ox 98 98 99 O2 Delivery Ventilator Ventilator Ventilator Mechanical Ventilator 12/27/18 12/27/18 12/27/18 12/27/18 08:00 08:44 09:00 09:55 Temp 98.6 98.6 Pulse 92 88 Resp 16 16 B/P (MAP) 119/65 (83) 122/70 (87) Pulse Ox 98 98 96 O2 Delivery Ventilator Ventilator Ventilator Nasal Cannula O2 Flow Rate 4.0 12/27/18 10:00 Pulse 88 B/P (MAP) 128/70 (89) Pulse Ox 96 O2 Delivery Nasal Cannula O2 Flow Rate 4.0 Intake and Output 12/26/18 12/26/18 12/27/18 15:00 23:00 07:00 Intake Total 150 ml 922 ml 1632.6 ml Output Total 820 ml 630 ml 535 ml Balance -670 ml 292 ml 1097.6 ml Problem List Problems Medical Problems: (1) Alcohol abuse Status: Acute (2) Closed head injury Status: Acute Assessment Acute blood loss anemia- Hg stable, on heparin for mechanical valve, CPM ALIZA KATHLEEN MD Dec 27, 2018 11:10
[2018-12-27] MEDS: MICAFUNGIN 100 MG in IV DEXTROSE 5% 100ML 100 ML IV SCH (12:21)
--- NOTE | 2018-12-27 12:26 | PDOC ---
PROGRESS NOTES Assessment Problems Medical Problems: (1) Alcohol abuse Status: Acute (2) Closed head injury Status: Acute Toxic/ anoxic/metabolic encephalopathy, given marked improvement, this may indeed be posterior reversible encephalopathy syndrome as noted on the MRI. GI bleeding, anemia. Shock and hypotensive events. Acute respiratory failure. Pleural effusion. Hx of seizure? AFib was on Coumadin. HTN. HLD. COPD. Peripheral neuropathy. Thrombocytosis Plan Discussed with family, I told him that neurologists are never 100% accurate, they are upset that Dr. Mari left little help. Obviously the patient is doing mu ch better today Continue ICU supportive care, may even be able to be transferred to the floor and the next day or 2 I told the patient we will follow the patient clinically, I see no need for serial MRI or EEG studies. Rehabilitation modalities. Thiamine. Subjective Denies pain Objective Vital Signs Date Time Temp Pulse Resp B/P (MAP) Pulse Ox O2 Delivery O2 Flow Rate FiO2 12/27/18 12:10 97 Nasal Cannula 4.0 12/27/18 10:00 88 128/70 (89) 12/27/18 09:00 16 12/27/18 08:00 98.6 98.6 Intake and Output 12/27/18 07:00 Intake Total 2704.6 ml Output Total 1985 ml Balance 719.6 ml Intake Oral 0 ml IV Total 2704.6 ml Output Urine Total 1985 ml PHYSICAL EXAM Extubated, mumbles replies, speech is discernible, family is very happy. He even follows a few commands 2 pulse: Both reactive, right a little bit larger than left EOMI. CN: no focal findings. Muscle tone: normal. Muscle strength: Moves all extremities DTR: 1+ Plantar reflex: Flexor Gait: not examined in bed. Sensory exam: not cooperative Cerebellar: not cooperative Review of Relevant I have reviewed the following items robert (where applicable) has been applied. Labs Laboratory Tests Test 12/25/18 14:00 12/25/18 22:15 12/26/18 05:40 12/26/18 08:00 White Blood Count 8.5 x10^3/uL (4.0-11.0) 9.6 x10^3/uL (4.0-11.0) 8.5 x10^3/uL (4.0-11.0) Red Blood Count 2.32 x10^6/uL (4.30-5.70) 3.34 x10^6/uL (4.30-5.70) 3.34 x10^6/uL (4.30-5.70) Hemoglobin 6.8 g/dL (13.0-17.5) 9.8 g/dL (13.0-17.5) 9.9 g/dL (13.0-17.5) Hematocrit 20.2 % (39.0-53.0) 29.1 % (39.0-53.0) 29.4 % (39.0-53.0) Mean Corpuscular Volume 87 fL (79-100) 87 fL (79-100) 88 fL (79-100) Mean Corpuscular Hemoglobin 29 pg (25-35) 30 pg (25-35) 30 pg (25-35) Mean Corpuscular Hemoglobin Concent 34 g/dL (31-37) 34 g/dL (31-37) 34 g/dL (31-37) Red Cell Distribution Width 17.7 % (11.5-14.5) 16.4 % (11.5-14.5) 16.8 % (11.5-14.5) Platelet Count 168 x10^3/uL (140-400) 180 x10^3/uL (140-400) 184 x10^3/uL (140-400) Prothrombin Time 15.9 SEC (11.7-14.0) Prothromb Time International Ratio 1.3 (0.8-1.1) Sodium Level 154 mmol/L (136-145) Potassium Level 3.9 mmol/L (3.5-5.1) Chloride Level 120 mmol/L (98-107) Carbon Dioxide Level 26 mmol/L (21-32) Anion Gap 8 (6-14) Blood Urea Nitrogen 30 mg/dL (8-26) Creatinine 0.9 mg/dL (0.7-1.3) Estimated GFR (Cockcroft-Gault) 87.0 BUN/Creatinine Ratio 33 (6-20) Glucose Level 152 mg/dL (70-99) Calcium Level 8.4 mg/dL (8.5-10.1) Phosphorus Level 2.4 mg/dL (2.6-4.7) Magnesium Level 2.2 mg/dL (1.8-2.4) Total Bilirubin 0.5 mg/dL (0.2-1.0) Aspartate Amino Transf (AST/SGOT) 519 U/L (15-37) Alanine Aminotransferase (ALT/SGPT) 982 U/L (16-63) Alkaline Phosphatase 32 U/L (46-116) Total Protein 4.9 g/dL (6.4-8.2) Albumin 2.5 g/dL (3.4-5.0) Albumin/Globulin Ratio 1.0 (1.0-1.7) Triglycerides Level 50 mg/dL (0-150) O2 Saturation 97 % (92-99) Arterial Blood pH 7.38 (7.35-7.45) Arterial Blood pCO2 at Patient Temp 38 mmHg (35-46) Arterial Blood pO2 at Patient Temp 102 mmHg (75-108) Arterial Blood HCO3 22 mmol/L (21-28) Arterial Blood Base Excess -3 mmol/L (-3-3) FiO2 35% Test 12/26/18 14:15 12/26/18 21:30 12/27/18 04:50 12/27/18 09:15 White Blood Count 8.3 x10^3/uL (4.0-11.0) 10.8 x10^3/uL (4.0-11.0) Red Blood Count 2.86 x10^6/uL (4.30-5.70) 3.57 x10^6/uL (4.30-5.70) Hemoglobin 8.7 g/dL (13.0-17.5) 10.6 g/dL (13.0-17.5) Hematocrit 25.7 % (39.0-53.0) 31.1 % (39.0-53.0) Mean Corpuscular Volume 90 fL (79-100) 87 fL (79-100) Mean Corpuscular Hemoglobin 31 pg (25-35) 30 pg (25-35) Mean Corpuscular Hemoglobin Concent 34 g/dL (31-37) 34 g/dL (31-37) Red Cell Distribution Width 17.4 % (11.5-14.5) 17.1 % (11.5-14.5) Platelet Count 176 x10^3/uL (140-400) 240 x10^3/uL (140-400) Heparin Anti-Xa Act, Unfractionated < 0.10 IU/mL (0.30-0.70) 0.18 IU/mL (0.30-0.70) Prothrombin Time 15.9 SEC (11.7-14.0) Prothromb Time International Ratio 1.3 (0.8-1.1) Sodium Level 150 mmol/L (136-145) Potassium Level 3.6 mmol/L (3.5-5.1) Chloride Level 114 mmol/L (98-107) Carbon Dioxide Level 28 mmol/L (21-32) Anion Gap 8 (6-14) Blood Urea Nitrogen 19 mg/dL (8-26) Creatinine 0.9 mg/dL (0.7-1.3) Estimated GFR (Cockcroft-Gault) 87.0 Glucose Level 146 mg/dL (70-99) Calcium Level 8.4 mg/dL (8.5-10.1) Phosphorus Level 2.8 mg/dL (2.6-4.7) Magnesium Level 1.9 mg/dL (1.8-2.4) O2 Saturation 97 % (92-99) Arterial Blood pH 7.47 (7.35-7.45) Arterial Blood pCO2 at Patient Temp 34 mmHg (35-46) Arterial Blood pO2 at Patient Temp 94 mmHg (75-108) Arterial Blood HCO3 24 mmol/L (21-28) Arterial Blood Base Excess 1 mmol/L (-3-3) FiO2 35 Laboratory Tests Test 12/26/18 14:15 12/26/18 21:30 12/27/18 04:50 12/27/18 09:15 White Blood Count 8.3 x10^3/uL (4.0-11.0) 10.8 x10^3/uL (4.0-11.0) Red Blood Count 2.86 x10^6/uL (4.30-5.70) 3.57 x10^6/uL (4.30-5.70) Hemoglobin 8.7 g/dL (13.0-17.5) 10.6 g/dL (13.0-17.5) Hematocrit 25.7 % (39.0-53.0) 31.1 % (39.0-53.0) Mean Corpuscular Volume 90 fL (79-100) 87 fL (79-100) Mean Corpuscular Hemoglobin 31 pg (25-35) 30 pg (25-35) Mean Corpuscular Hemoglobin Concent 34 g/dL (31-37) 34 g/dL (31-37) Red Cell Distribution Width 17.4 % (11.5-14.5) 17.1 % (11.5-14.5) Platelet Count 176 x10^3/uL (140-400) 240 x10^3/uL (140-400) Heparin Anti-Xa Act, Unfractionated < 0.10 IU/mL (0.30-0.70) 0.18 IU/mL (0.30-0.70) Prothrombin Time 15.9 SEC (11.7-14.0) Prothromb Time International Ratio 1.3 (0.8-1.1) Sodium Level 150 mmol/L (136-145) Potassium Level 3.6 mmol/L (3.5-5.1) Chloride Level 114 mmol/L (98-107) Carbon Dioxide Level 28 mmol/L (21-32) Anion Gap 8 (6-14) Blood Urea Nitrogen 19 mg/dL (8-26) Creatinine 0.9 mg/dL (0.7-1.3) Estimated GFR (Cockcroft-Gault) 87.0 Glucose Level 146 mg/dL (70-99) Calcium Level 8.4 mg/dL (8.5-10.1) Phosphorus Level 2.8 mg/dL (2.6-4.7) Magnesium Level 1.9 mg/dL (1.8-2.4) O2 Saturation 97 % (92-99) Arterial Blood pH 7.47 (7.35-7.45) Arterial Blood pCO2 at Patient Temp 34 mmHg (35-46) Arterial Blood pO2 at Patient Temp 94 mmHg (75-108) Arterial Blood HCO3 24 mmol/L (21-28) Arterial Blood Base Excess 1 mmol/L (-3-3) FiO2 35 Microbiology 12/24/18 Blood Culture - Preliminary, Resulted NO GROWTH AFTER 3 DAYS 12/20/18 Urine Culture - Final, Complete 12/20/18 Urine Culture Result 1 (AMARA) - Final, Complete Medications Current Medications Fentanyl Citrate (Fentanyl 2ml Vial) 50 mcg 1X ONCE IV Last administered on 12/10/18at 20:03; Start 12/10/18 at 19:15; Stop 12/10/18 at 19:16; Status DC Iohexol (Omnipaque 300 Mg/ml) 75 ml 1X ONCE IV Last administered on 12/10/18at 19:43; Start 12/10/18 at 19:15; Stop 12/10/18 at 19:16; Status DC Sodium Chloride 1,000 ml @ 1,000 mls/hr 1X ONCE IV Last administered on 12/10/18at 19:45; Start 12/10/18 at 19:45; Stop 12/10/18 at 20:44; Status DC Morphine Sulfate (Morphine Sulfate) 2 mg PRN Q2HR PRN IV PAIN Last administered on 12/11/18 12:03; Start 12/10/18 at 20:15; Stop 12/11/18 at 20:14; Status DC Sodium Chloride 1,000 ml @ 100 mls/hr Q10H IV Last administered on 12/11/18at 08:10; Start 12/10/18 at 20:07; Stop 12/11/18 at 12:21; Status DC Diphtheria/ Tetanus/Acell Pertussis (Boostrix) 0.5 ml ONCE ONCE VAX IM Last administered on 12/10/18 21:07; Start 12/10/18 at 20:15; Stop 12/10/18 at 20:16; Status DC Ondansetron HCl (Zofran) 4 mg PRN Q6HRS PRN IV NAUSEA/VOMITING 1ST CHOICE Last administered on 12/21/18 03:27; Start 12/11/18 at 05:30 Multivitamins (Thera M Plus) 1 tab DAILY PO Last administered on 12/12/18 08:14; Start 12/11/18 at 09:00; Stop 12/13/18 at 11:25; Status DC Folic Acid (Folic Acid) 1 mg DAILY PO Last administered on 12/12/18at 08:14; Start 12/11/18 at 09:00; Stop 12/13/18 at 11:25; Status DC Chlordiazepoxide (Librium) 50 mg PRN Q1HR PRN PO For CIWA 8-14 2ND CHOICE Last administered on 12/18/18 18:03; Start 12/11/18 at 05:30 Chlordiazepoxide (Librium) 100 mg PRN Q1HR PRN PO For CIWA 15+ 2ND CHOICE Last administered on 12/13/18 01:11; Start 12/11/18 at 05:30 Lorazepam (Ativan) 4 mg PRN Q1HR PRN PO For CIWA 8-14 Last administered on 12/13/18 02:48; Start 12/11/18 at 05:30 Lorazepam (Ativan) 8 mg PRN Q1HR PRN PO For CIWA 15 or greater; Start 12/11/18 at 05:30 Lorazepam (Ativan Inj) 2 mg PRN Q1HR PRN IV For CIWA 8-14 Last administered on 12/27/18 05:50; Start 12/11/18 at 05:30 Lorazepam (Ativan Inj) 4 mg PRN Q1HR PRN IV For CIWA 15 or greater Last administered on 12/26/18 22:11; Start 12/11/18 at 05:30 Haloperidol Lactate (Haldol Inj) 5 mg PRN Q4HRS PRN IVP Hallucinatns,Confusn,Delirium Last administered on 12/25/18 09:04; Start 12/11/18 at 05:30 Diphenhydramine HCl (Benadryl) 25 mg PRN Q15MIN PRN IVP EPS symptoms 2'Haldol admin Last administered on 12/18/18 03:44; Start 12/11/18 at 05:30 Clonidine HCl (Catapres) 0.1 mg PRN Q1HR PRN PO SBP > 180 or DBP > 100, MRX3; Start 12/11/18 at 05:30 Sodium Chloride 1,000 ml @ 60 mls/hr [id number] IV Last administered on 12/21/18 07:26; Start 12/11/18 at 13:00; Stop 12/22/18 at 14:53; Status DC Sodium Chloride 150 ml @ 50 mls/hr 1X ONCE IV Last administered on 12/11/18 13:48; Start 12/11/18 at 13:00; Stop 12/11/18 at 15:59; Status DC Lisinopril (Prinivil) 20 mg DAILY PO Last administered on 12/19/18 08:00; Start 12/11/18 at 14:00; Stop 12/21/18 at 15:19; Status DC Oxycodone/ Acetaminophen (Percocet 7.5/ 325) 1 tab PRN Q6HRS PRN PO MODERATE TO SEVERE PAIN Last administered on 12/19/18at 06:19; Start 12/11/18 at 13:30 Calcium Carbonate/ Glycine (Oscal) 500 mg TIDAFTMEAL PO Last administered on 12/19/18at 17:22; Start 12/12/18 at 13:00 Ziprasidone (Geodon Im) 20 mg 1X ONCE IM ; Start 12/13/18 at 05:00; Stop 12/13/18 at 18:51; Status DC Lorazepam 100 mg/ Sodium Chloride 100 ml @ 2 mls/hr CONT PRN IV SEDATION Last administered on 12/13/18at 19:56; Start 12/13/18 at 07:00; Stop 12/18/18 at 16:33; Status DC Olanzapine (ZyPREXA IM) 10 mg PRN Q8HRS PRN IM AGITATION Last administered on 12/19/18at 00:05; Start 12/13/18 at 08:30 Olanzapine (ZyPREXA IM) 10 mg STK-MED ONCE IM ; Start 12/13/18 at 08:37; Stop 12/13/18 at 08:38; Status DC Fentanyl Citrate (Fentanyl 2ml Vial) 75 mcg 1X ONCE IV ; Start 12/13/18 at 09:45; Stop 12/13/18 at 19:20; Status DC Fentanyl Citrate (Fentanyl 2ml Vial) 100 mcg STK-MED ONCE .ROUTE ; Start 12/13/18 at 09:47; Stop 12/13/18 at 09:48; Status DC Fentanyl Citrate (Fentanyl 2ml Vial) 75 mcg PRN Q30MIN PRN IV PAIN Last administered on 12/27/18at 06:14; Start 12/13/18 at 10:00 Multivitamins 10 ml/Thiamine HCl 100 mg/Folic Acid 1 mg/Sodium Chloride 1,011.2 ml @ 100 mls/ hr DAILY IV Last administered on 12/18/18at 08:55; Start 12/14/18 at 12:00; Stop 12/18/18 at 19:07; Status DC Enoxaparin Sodium (Lovenox 80mg Syringe) 80 mg Q12HR SQ Last administered on 12/21/18at 07:50; Start 12/13/18 at 14:30; Stop 12/21/18 at 12:56; Status DC Warfarin Sodium (Coumadin Per Pharmacy) 1 each PRN DAILY PRN MC SEE COMMENTS Last administered on 12/24/18at 11:27; Start 12/13/18 at 14:15; Stop 12/24/18 at 16:10; Status DC Warfarin Sodium (Coumadin) 7.5 mg 1X WARF ONCE PO ; Start 12/13/18 at 16:00; Stop 12/13/18 at 16:01; Status DC Nicotine (Nicoderm Cq 21mg) 1 patch DAILY TD Last administered on 12/27/18at 08:41; Start 12/14/18 at 09:00 Dexmedetomidine HCl 400 mcg/ Sodium Chloride 100 ml @ 0 mls/hr CONT PRN IV PER PROTOCOL Last administered on 12/18/18at 00:12; Start 12/14/18 at 01:45; Stop 12/18/18 at 16:33; Status DC Sodium Chloride 500 ml @ 500 mls/hr 1X PRN PRN IV SEE COMMENTS; Start 12/14/18 at 01:45; Stop 12/20/18 at 11:56; Status DC Atropine Sulfate (ATROPINE 0.5mg SYRINGE) 0.5 mg PRN Q5MIN PRN IV SEE COMMENTS; Start 12/14/18 at 01:45; Stop 12/20/18 at 11:55; Status DC Nicotine (Nicoderm Cq 21mg) 1 patch STK-MED ONCE TD ; Start 12/14/18 at 01:57; Stop 12/14/18 at 01:57; Status DC Lorazepam (Ativan) 1 mg BID PO Last administered on 12/19/18at 08:00; Start 12/14/18 at 09:00 Warfarin Sodium (Coumadin) 5 mg DAILY16 PO ; Start 12/14/18 at 16:00; Stop 12/14/18 at 09:21; Status DC Warfarin Sodium (Coumadin) 7.5 mg 1X WARF ONCE PO ; Start 12/14/18 at 16:00; Stop 12/14/18 at 16:01; Status DC Enalaprilat (Vasotec Inj) 1.25 mg Q8HRS IVP Last administered on 12/27/18at 05:51; Start 12/14/18 at 15:00 Nicardipine HCl 50 mg/Sodium Chloride 250 ml @ 25 mls/hr CONT PRN IV SEE I/O RECORD Last administered on 12/16/18at 09:58; Start 12/14/18 at 17:45; Stop 12/18/18 at 16:33; Status DC Nicardipine HCl 50 mg/Sodium Chloride 250 ml @ 25 mls/hr CONT PRN IV SEE I/O RECORD; Start 12/14/18 at 18:00; Status UNV Warfarin Sodium (Coumadin) 7.5 mg 1X WARF ONCE PO ; Start 12/15/18 at 16:00; Stop 12/15/18 at 16:01; Status DC Warfarin Sodium (Coumadin - No Dose Today) 1 each 1X WARF ONCE MC ; Start 12/16/18 at 16:00; Stop 12/16/18 at 16:01; Status DC Warfarin Sodium (Coumadin) 7.5 mg 1X WARF ONCE PO Last administered on 12/18/18at 08:54; Start 12/17/18 at 16:00; Stop 12/17/18 at 16:01; Status DC Ceftriaxone Sodium (Rocephin) 1 gm Q24H IVP Last administered on 12/20/18at 12:08; Start 12/18/18 at 12:30; Stop 12/20/18 at 15:14; Status DC Metoprolol Tartrate (Lopressor) 25 mg BID PO Last administered on 12/19/18at 08:01; Start 12/18/18 at 12:30 Acetaminophen/ Codeine Phosphate (Tylenol #3) 1 tab PRN Q6HRS PRN PO PAIN MILD TO MOD; Start 12/18/18 at 12:00; Stop 12/18/18 at 12:55; Status DC Lactobacillus Rhamnosus (Culturelle) 1 cap BID PO Last administered on 12/19/18at 08:00; Start 12/18/18 at 21:00; Stop 12/24/18 at 11:17; Status DC Acetaminophen (Tylenol) 650 mg PRN Q6HRS PRN PO FEVER Last administered on 12/19/18at 17:23; Start 12/18/18 at 13:00 Warfarin Sodium (Coumadin) 7.5 mg 1X WARF ONCE PO Last administered on 12/18/18at 18:03; Start 12/18/18 at 16:00; Stop 12/18/18 at 16:11; Status DC Albuterol/ Ipratropium (Duoneb) 3 ml 1X ONCE NEB Last administered on 12/19/18at 07:15; Start 12/19/18 at 07:15; Stop 12/19/18 at 07:16; Status DC Ziprasidone (Geodon Im) 10 mg 1X ONCE IM Last administered on 12/19/18at 07:42; Start 12/19/18 at 07:15; Stop 12/19/18 at 07:16; Status DC Warfarin Sodium (Coumadin) 7.5 mg 1X WARF ONCE PO Last administered on 12/19/18at 17:23; Start 12/19/18 at 16:00; Stop 12/19/18 at 16:01; Status DC Potassium Chloride (Klor-Con) 40 meq 1X ONCE PO Last administered on 12/19/18at 16:12; Start 12/19/18 at 14:00; Stop 12/19/18 at 14:01; Status DC Potassium Chloride (Klor-Con) 20 meq DAILYWBKFT PO ; Start 12/20/18 at 08:00 Doxycycline Hyclate (Vibra-Tab) 100 mg BID PO Last administered on 12/19/18at 17:22; Start 12/19/18 at 17:30; Stop 12/19/18 at 17:57; Status DC Doxycycline Hyclate 100 mg/ Dextrose 100 ml @ 50 mls/hr Q12HR IV Last administered on 12/23/18at 22:17; Start 12/19/18 at 21:00; Stop 12/24/18 at 10:15; Status DC Metoprolol Tartrate (Lopressor Vial) 5 mg PRN Q6HRS PRN IVP HYPERTENSION Last administered on 12/24/18at 07:22; Start 12/19/18 at 18:00 Scopolamine (Transderm-Scop) 1 patch Q3DAYS TD Last administered on 12/26/18at 09:29; Start 12/20/18 at 09:00 Potassium Chloride/Water 100 ml @ 100 mls/hr Q1H IV Last administered on 12/20/18at 10:36; Start 12/20/18 at 06:00; Stop 12/20/18 at 09:59; Status DC Potassium Chloride (Klor-Con) 40 meq 1X ONCE PO ; Start 12/20/18 at 08:00; Stop 12/20/18 at 08:01; Status DC Acetaminophen (Tylenol Supp) 650 mg PRN Q6HRS PRN [place] MILD PAIN / TEMP Last administered on 12/20/18at 14:59; Start 12/20/18 at 07:15 Warfarin Sodium (Coumadin) 7.5 mg 1X WARF ONCE PO ; Start 12/20/18 at 16:00; Stop 12/20/18 at 16:01; Status DC Hydralazine HCl (Apresoline Inj) 10 mg PRN Q4HRS PRN IVP ELEVATED BP, SEE COMMENTS Last administered on 12/22/18at 11:07; Start 12/20/18 at 14:30 Potassium Chloride (Klor-Con) 40 meq 1X ONCE PO ; Start 12/20/18 at 14:30; Stop 12/20/18 at 14:41; Status DC Potassium Chloride (Klor-Con) 20 meq DAILYWBKFT PO ; Start 12/21/18 at 08:00; Stop 12/25/18 at 11:25; Status DC Albuterol/ Ipratropium (Duoneb) 3 ml RTQID NEB Last administered on 12/27/18at 12:08; Start 12/20/18 at 16:00 Piperacillin Sod/ Tazobactam Sod 3.375 gm/Sodium Chloride 50 ml @ 100 mls/hr Q6HRS IV Last administered on 12/24/18at 05:09; Start 12/20/18 at 16:00; Stop 12/24/18 at 10:15; Status DC Amino Acids/ Glycerin/ Electrolytes 1,000 ml @ 75 mls/hr [id number] IV Last administered on 12/25/18at 09:05; Start 12/21/18 at 13:00; Stop 12/25/18 at 21:59; Status DC Warfarin Sodium (Coumadin) 1 mg 1X WARF ONCE PO ; Start 12/21/18 at 16:00; Stop 12/21/18 at 16:01; Status DC Sodium Chloride 1,000 ml @ 75 mls/hr 1X ONCE IV Last administered on 12/21/18at 13:49; Start 12/21/18 at 13:15; Stop 12/22/18 at 02:34; Status DC Potassium Chloride/Water 100 ml @ 100 mls/hr Q1H IV Last administered on 12/22/18at 11:03; Start 12/22/18 at 06:00; Stop 12/22/18 at 09:59; Status DC Sodium Chloride 1,000 ml @ 75 mls/hr 1X ONCE IV Last administered on 12/22/18at 14:49; Start 12/22/18 at 14:30; Stop 12/23/18 at 03:49; Status DC Potassium Chloride 20 meq/ Sodium Chloride 1,010 ml @ 75 mls/hr 1X ONCE IV Last administered on 12/22/18at 17:51; Start 12/22/18 at 16:00; Stop 12/23/18 at 05:27; Status DC Hydralazine HCl (Apresoline Inj) 10 mg Q6HRS IVP Last administered on 12/27/18at 05:02; Start 12/22/18 at 18:00 Potassium Chloride/Water 100 ml @ 100 mls/hr Q1H IV Last administered on 12/23/18at 14:01; Start 12/23/18 at 06:00; Stop 12/23/18 at 09:59; Status DC Potassium Chloride/Water 50 ml @ 50 mls/hr Q1H IV ; Start 12/23/18 at 11:15; Stop 12/23/18 at 13:14; Status UNV Potassium Chloride/Water 100 ml @ 100 mls/hr Q1H IV ; Start 12/23/18 at 11:30; Stop 12/23/18 at 13:04; Status DC Warfarin Sodium (Coumadin - No Dose Today) 1 each 1X WARF ONCE MC Last admini stered on 12/23/18at 16:00; Start 12/23/18 at 16:00; Stop 12/23/18 at 16:01; Status DC Pantoprazole Sodium (PROTONIX VIAL for IV PUSH) 40 mg DAILYAC IVP Last administered on 12/23/18at 15:21; Start 12/23/18 at 15:00; Stop 12/24/18 at 10:43; Status DC Cefepime HCl (Maxipime) 2 gm Q8HRS IVP Last administered on 12/27/18at 05:00; Start 12/24/18 at 10:00 Metronidazole 100 ml @ 100 mls/hr Q8HRS IV Last administered on 12/27/18at 05:00; Start 12/24/18 at 10:00 Daptomycin 460 mg/ Sodium Chloride 50 ml @ 100 mls/hr Q24H IV Last administered on 12/27/18at 10:58; Start 12/24/18 at 11:00 Micafungin Sodium 100 mg/Dextrose 100 ml @ 100 mls/hr Q24H IV Last administered on 12/26/18at 13:22; Start 12/24/18 at 12:00 Pantoprazole Sodium 80 mg/ Sodium Chloride 100 ml @ 10 mls/hr Q10H IV Last administered on 12/26/18at 13:23; Start 12/24/18 at 11:00; Stop 12/26/18 at 15:12; Status DC Lorazepam (Ativan) 1 mg PRN Q6HRS PRN PO ANXIETY / AGITATION 1ST CHOICE; Start 12/24/18 at 10:45 Ondansetron HCl (Zofran) 4 mg PRN Q6HRS PRN IV NAUSEA/VOMITING; Start 12/24/18 at 10:45; Stop 12/24/18 at 10:52; Status DC Info (Icu Electrolyte Protocol) 1 ea DAILY MC Last administered on 12/25/18at 08:50; Start 12/25/18 at 09:00 Sodium Chloride (Normal Saline Flush) 3 ml QSHIFT PRN IV AFTER MEDS AND BLOOD DRAWS; Start 12/24/18 at 10:45 Sodium Chloride 1,000 ml @ 2,130 mls/hr Q29M IV Last administered on 12/24/18at 12:13; Start 12/24/18 at 10:50; Stop 12/24/18 at 11:50; Status DC Sodium Chloride 500 ml @ 1,000 mls/hr PRN Q30MIN PRN IV SEE COMMENTS; Start 12/24/18 at 11:00 Norepinephrine Bitartrate 250 ml @ 0 mls/hr CONT PRN IV SEE COMMENTS Last administered on 12/24/18at 20:22; Start 12/24/18 at 11:00; Stop 12/27/18 at 09:21; Status DC Dobutamine HCl/ Dextrose 250 ml @ 0 mls/hr CONT PRN IV SEE COMMENTS; Start 12/24/18 at 11:00 Sodium Bicarbonate (Sodium Bicarb Adult 8.4% Syr) 100 meq 1X ONCE IV Last admi nistered on 12/24/18at 11:16; Start 12/24/18 at 11:15; Stop 12/24/18 at 11:16; Status DC Phytonadione (Vitamin K Ampule) 5 mg 1X ONCE SQ Last administered on 12/24/18at 12:24; Start 12/24/18 at 11:15; Stop 12/24/18 at 11:22; Status DC Succinylcholine Chloride (Anectine) 200 mg STK-MED ONCE .ROUTE ; Start 12/24/18 at 11:20; Stop 12/24/18 at 11:21; Status DC Midazolam HCl (Versed) 5 mg STK-MED ONCE .ROUTE ; Start 12/24/18 at 11:21; Stop 12/24/18 at 11:21; Status DC Warfarin Sodium (Coumadin - No Dose Today) 1 each 1X WARF ONCE MC ; Start 12/24/18 at 16:00; Stop 12/24/18 at 22:25; Status DC Atropine Sulfate (ATROPINE 1mg SYRINGE) 1 mg STK-MED ONCE .ROUTE ; Start 12/24/18 at 11:30; Stop 12/24/18 at 11:30; Status DC Epinephrine HCl (Adrenalin) 1 mg STK-MED ONCE .ROUTE ; Start 12/24/18 at 11:30; Stop 12/24/18 at 11:30; Status DC Succinylcholine Chloride (Anectine) 60 mg 1X ONCE IV Last administered on 12/24/18at 12:04; Start 12/24/18 at 11:45; Stop 12/24/18 at 11:46; Status DC Midazolam HCl (Versed) 2 mg 1X ONCE IV Last administered on 12/24/18at 11:30; Start 12/24/18 at 11:45; Stop 12/24/18 at 11:46; Status DC Epinephrine HCl (EPINEPHrine SYRINGE) 1 mg 1X ONCE IV ; Start 12/24/18 at 11:45; Stop 12/24/18 at 11:46; Status DC Sodium Chloride 1,000 ml @ 1,000 mls/hr 1X ONCE IV ; Start 12/24/18 at 11:45; Stop 12/24/18 at 12:44; Status DC Midazolam HCl 100 ml @ 5 mls/hr CONT PRN IV SEE I/O RECORD Last administered on 12/25/18at 23:40; Start 12/24/18 at 12:00; Stop 12/27/18 at 09:21; Status DC Fentanyl Citrate 30 ml @ 0 mls/hr CONT PRN IV SEE PROTOCOL Last administered on 12/26/18at 05:26; Start 12/24/18 at 12:00 Midazolam HCl (Versed) 2 mg 1X ONCE IV ; Start 12/24/18 at 12:15; Stop 12/24/18 at 12:16; Status DC Metoclopramide HCl (Reglan Vial) 10 mg 1X ONCE IVP Last administered on 12/24/18at 15:00; Start 12/24/18 at 12:45; Stop 12/24/18 at 12:46; Status DC Vasopressin 40 unit/Dextrose 102 ml @ 6 mls/hr CONT PRN IV SEE I/O RECORD Last administered on 12/26/18at 12:38; Start 12/24/18 at 13:00; Stop 12/27/18 at 09:21; Status DC Albumin Human 500 ml @ As Directed STK-MED ONCE IV ; Start 12/24/18 at 14:37; Stop 12/24/18 at 14:37; Status DC Albumin Human 500 ml @ 125 mls/hr 1X ONCE IV Last administered on 12/24/18at 14:39; Start 12/24/18 at 14:45; Stop 12/24/18 at 18:44; Status DC Digoxin (Lanoxin) 500 mcg 1X ONCE IV Last administered on 12/24/18at 15:30; Start 12/24/18 at 15:30; Stop 12/24/18 at 15:31; Status DC Digoxin (Lanoxin) 500 mcg STK-MED ONCE .ROUTE ; Start 12/24/18 at 15:07; Stop 12/24/18 at 15:08; Status DC Phytonadione (Vitamin K Ampule) 10 mg 1X ONCE SQ Last administered on 12/24/18at 17:36; Start 12/24/18 at 15:45; Stop 12/24/18 at 15:49; Status DC Amiodarone HCl 150 mg/Dextrose 103 ml @ 618 mls/hr 1X ONCE IV Last administered on 12/24/18at 17:09; Start 12/24/18 at 16:00; Stop 12/24/18 at 16:09; Status DC Amiodarone HCl 900 mg/Dextrose 518 ml @ 0 mls/hr CONT PRN IV SEE I/O RECORD Last administered on 12/24/18at 17:55; Start 12/24/18 at 16:00; Stop 12/24/18 at 17:55; Status DC Phytonadione (Vitamin K Ampule) 10 mg 1X ONCE SQ ; Start 12/24/18 at 17:00; Stop 12/24/18 at 17:01; Status DC Potassium Chloride/Water 50 ml @ 50 mls/hr Q1H IV Last administered on 12/25/18at 12:37; Start 12/25/18 at 09:00; Stop 12/25/18 at 12:59; Status DC Potassium Chloride/Water 50 ml @ 0 mls/hr Q1H IV ; Start 12/25/18 at 08:30; Stop 12/25/18 at 11:31; Status UNV Info (Tpn Per Pharmacy) 1 each PRN DAILY PRN MC SEE COMMENTS Last administered on 12/26/18at 15:02; Start 12/25/18 at 09:45 Sodium Chloride 50 meq/Potassium Acetate 70 meq/ Potassium Phosphate 13.6 mmol/Magnesium Sulfate 10 meq/ Calcium Gluconate 10 meq/ Multivitamins 10 ml/Chromium/ Copper/Manganese/ Seleni/Zn 1 ml/ Total Parenteral Nutrition/Amino Acids/Dextrose/ Fat Emulsion Intravenous 1,512 ml @ 63 mls/hr TPN CONT IV Last administered on 12/25/18at 21:37; Start 12/25/18 at 22:00; Stop 12/26/18 at 21:59; Status DC Amiodarone HCl 900 mg/Dextrose 518 ml @ 17 mls/hr CONT PRN IV .; Start 12/25/18 at 20:00; Status Cancel Amiodarone HCl 900 mg/Dextrose 518 ml @ 0 mls/hr CONT PRN IV SEE I/O RECORD Last administered on 12/25/18at 20:15; Start 12/25/18 at 20:15; Stop 12/25/18 at 20:15; Status DC Aspirin (Aspirin Rectal Supp) 300 mg DAILY [place] Last administered on 12/27/18at 08:41; Start 12/26/18 at 11:00 Amiodarone HCl 900 mg/Dextrose 518 ml @ 33 mls/hr CONT PRN IV SEE I/O RECORD; Start 12/26/18 at 12:45; Stop 12/27/18 at 01:06; Status DC Potassium Acetate 70 meq/Potassium Phosphate 17 mmol/ Magnesium Sulfate 10 meq/Calcium Gluconate 10 meq/ Multivitamins 10 ml/Chromium/ Copper/Manganese/ Seleni/Zn 1 ml/ Thiamine HCl 100 mg/Folic Acid 1 mg/Total Parenteral Nutrition/Amino Acids/Dextrose/ Fat Emulsion Intravenous 1,992 ml @ 83 mls/hr TPN CONT IV Last administered on 12/26/18at 21:53; Start 12/26/18 at 22:00; Stop 12/27/18 at 21:59 Heparin Sodium/ Dextrose 500 ml @ 18.72 mls/ hr CONT PRN IV PER PROTOCOL Last administered on 12/26/18at 15:34; Start 12/26/18 at 14:45 Heparin Sodium (Porcine) (Heparin Sodium) 1,950 unit PRN Q6HRS PRN IV FOR UFH LEVEL LESS THAN 0.2 Last administered on 12/27/18at 09:18; Start 12/26/18 at 14:45 Pantoprazole Sodium (PROTONIX VIAL for IV PUSH) 40 mg BID IVP Last administered on 12/27/18at 08:41; Start 12/26/18 at 21:00 Amiodarone HCl 450 mg/Dextrose 259 ml @ 17 mls/hr CONT PRN IV SEE I/O RECORD Last administered on 12/27/18at 03:58; Start 12/27/18 at 02:00 Active Scripts Active Reported Lorazepam 1 Mg Tablet 1 Tab PO BID Percocet 7.5-325 Mg Tablet (Oxycodone/Acetaminophen) 1 Each Tablet 1 Tab PO PRN Q6HRS PRN Coumadin (Warfarin Sodium) 5 Mg Tablet 1 Tab PO DAILY Lisinopril 20 Mg Tablet 1 Tab PO DAILY Vitals/I & O Vital Sign - Last 24 Hours 12/26/18 12/26/18 12/26/18 12/26/18 12:23 13:00 14:00 15:00 Pulse 64 56 64 Resp 15 16 16 B/P (MAP) 108/62 (77) 133/68 (89) 136/67 (90) Pulse Ox 99 98 99 100 O2 Delivery Ventilator Ventilator Ventilator Ventilator 12/26/18 12/26/18 12/26/18 12/26/18 15:15 15:30 15:34 15:45 B/P (MAP) 132/72 (92) 128/68 (88) 125/68 (87) Pulse Ox 100 O2 Delivery Ventilator 12/26/18 12/26/18 12/26/18 12/26/18 16:00 16:00 17:00 18:00 Temp 98.9 98.9 Pulse 78 82 75 Resp 17 21 20 B/P (MAP) 117/63 (81) 107/75 (86) 146/77 (100) Pulse Ox 99 98 99 O2 Delivery Ventilator Mechanical Ventilator Ventilator Ventilator 12/26/18 12/26/18 12/26/18 12/26/18 19:00 19:39 20:00 20:00 Temp 99.2 99.2 Pulse 78 76 Resp 16 21 B/P (MAP) 166/82 (110) 149/82 (104) Pulse Ox 100 100 98 O2 Delivery Ventilator Ventilator Mechanical Ventilator Ventilator 12/26/18 12/26/18 12/26/18 12/26/18 20:25 20:55 21:00 21:50 Pulse 82 Resp 20 B/P (MAP) 157/77 (103) Pulse Ox 100 100 100 100 O2 Delivery Ventilator Ventilator Ventilator O2 Flow Rate 2.0 12/26/18 12/26/18 12/26/18 12/26/18 22:00 22:09 23:00 23:20 Pulse 100 100 86 Resp 20 20 B/P (MAP) 177/100 (125) 177/100 150/80 (103) Pulse Ox 100 100 100 O2 Delivery Ventilator Ventilator Ventilator 12/26/18 12/26/18 12/27/18 12/27/18 23:47 23:56 00:00 00:24 Temp 99.9 99.9 Pulse 84 96 Resp 21 B/P (MAP) 150/80 132/70 (90) Pulse Ox 98 98 O2 Delivery Mechanical Ventilator Ventilator Ventilator O2 Flow Rate 2.0 12/27/18 12/27/18 12/27/18 12/27/18 00:52 00:55 01:00 01:58 Pulse 86 Resp 20 B/P (MAP) 102/57 (72) Pulse Ox 100 100 100 100 O2 Delivery Ventilator Ventilator Ventilator O2 Flow Rate 2.0 12/27/18 12/27/18 12/27/18 12/27/18 02:00 02:28 02:40 03:00 Pulse 76 76 Resp 20 20 B/P (MAP) 112/63 (79) 107/60 (76) Pulse Ox 100 100 100 100 O2 Delivery Ventilator Ventilator Ventilator Ventilator O2 Flow Rate 2.0 12/27/18 12/27/18 12/27/18 12/27/18 03:55 04:00 04:04 04:25 Temp 98.8 98.8 Pulse 76 Resp 21 B/P (MAP) 115/68 (84) Pulse Ox 100 98 98 O2 Delivery Ventilator Mechanical Ventilator O2 Flow Rate 2.0 2.0 12/27/18 12/27/18 12/27/18 12/27/18 05:00 05:02 05:20 05:51 Pulse 99 80 100 Resp 25 B/P (MAP) 139/72 (94) 139/72 139/72 Pulse Ox 100 100 O2 Delivery Ventilator Ventilator 12/27/18 12/27/18 12/27/18 12/27/18 06:00 06:44 07:00 07:20 Pulse 86 90 Resp 16 16 B/P (MAP) 103/54 (70) 117/62 (80) Pulse Ox 98 98 98 99 O2 Delivery Ventilator Ventilator Ventilator Ventilator 12/27/18 12/27/18 12/27/18 12/27/18 08:00 08:00 08:44 09:00 Temp 98.6 98.6 Pulse 92 88 Resp 16 16 B/P (MAP) 119/65 (83) 122/70 (87) Pulse Ox 98 98 O2 Delivery Mechanical Ventilator Ventilator Ventilator Ventilator 12/27/18 12/27/18 12/27/18 09:55 10:00 12:10 Pulse 88 B/P (MAP) 128/70 (89) Pulse Ox 96 96 97 O2 Delivery Nasal Cannula Nasal Cannula Nasal Cannula O2 Flow Rate 4.0 4.0 4.0 Intake and Output 12/26/18 12/26/18 12/27/18 15:00 23:00 07:00 Intake Total 150 ml 922 ml 1632.6 ml Output Total 820 ml 630 ml 535 ml Balance -670 ml 292 ml 1097.6 ml Images Magnetic resonance imaging (MRI) of the brain and brainstem without contrast 12/26/2018 10:52 AM HISTORY: PRES versus infarcts TECHNIQUE: Multiplanar multi-weighted MRI of the brain and brainstem was performed without intravenous contrast using the general brain protocol. COMPARISON: None available. FINDINGS: There is cerebral edema predominantly cortically based involving the right superior and posterior frontal lobe, minimally involving the left frontal lobe and symmetric diffuse involvement of the bilateral parietal and occipital cortex. ADC values are borderline low to intermediate signal. T2 and FLAIR images demonstrate diffuse edema in this distribution. No susceptibility artifact is identified to suggest hemorrhage. The susceptibility is identified in the region of the pineal gland, likely from calcification. The scalp and calvarium are normal. The superior sagittal sinus demonstrates normal venous flow. The corpus callosum is normal in shape and signal intensity. The posterior fossa is unremarkable. The pituitary and sella are normal. The brainstem and craniocervical junction are unremarkable. The ventricles are normal in size and position without evidence of hydrocephalus. Mild mucosal thickening of the maxillary sinuses is noted bilaterally as well as moderate mucosal thickening of the ethmoid air cells. The visualized portions of the mastoids are unremarkable. The orbits appear normal. Normal flow voids are demonstrated in the carotid arteries and basilar artery. IMPRESSION: Cortically based cerebral edema is noted involving bifrontal lobes, right greater than left, as well as symmetric involvement of the bilateral occipital and parietal lobes. Differential considerations would include subacute ischemia from global hyperperfusion. Of note, there is not significant involvement of the basal ganglia as typically seen with cerebral hypoxic injury. Findings may also be seen with posterior reversible encephalopathy syndrome. There is no midline shift identified. DESTINI GEIGER MD Dec 27, 2018 12:26
[2018-12-27] MEDS: HEPARIN 25,000UTS/500ML PREMIX 500 ML IV PRN (13:31)
[2018-12-27] MEDS: HALOPERIDOL LACTATE 5 MG/ML VIAL. IVP PRN ×2 (14:56→19:18)
--- NOTE | 2018-12-27 15:15 | NUR ---
Patient is tolerating NC well. worked with PT/ OT today up to chair with assist. ST to see patient tomorrow. Patient is forgetful and continues to ask for a drink. Patient is reminded by RN that it is not safe for him to drink yet. Family made aware of NPO status and plan for patient moving forward.
[2018-12-27] MEDS: TPN PER PHARMACY MC PRN (15:18)
--- NOTE | 2018-12-27 15:18 | NUR ---
Pharmacy TPN Dosing Note S: SHAW OG is a 58 year old M Currently receiving Central Continuous TPN started 12/25/18 B:Pertinent PMH: GI bleed Height: 5 feet, 9 inches Weight: 78 kg Current diet: LABS: Sodium: 150 Potassium: 3.6 Chloride: 114 Calcium: 8.4 Corrected Calcium: 9.84 Magnesium: 1.9 CO2: 28 SCr: 0.9 Glucose: 146 Albumin: 2.2 AST: 519 ALT: 982 TPN FORMULA: TPN TYPE: Central Continuous AMINO ACIDS: 95 gm DEXTROSE: 250 gm LIPIDS: 20 gm POTASSIUM ACETATE: 85 mEq POTASSIUM PHOSPHATE: 17 mmol MAGNESIUM: 10 mEq CALCIUM: 10 mEq MULTIPLE VITAMIN: 10 ml TRACE ELEMENTS: 1 ml TPN PLAN: -Extubated today, still NPO. -Serum potassium trending down, increase KAC to 85 mEq/day. -Other electrolytes are WNL or stabilizing. -Continue with thiamine and folic acid in TPN. -BMP, mag, phos tomorrow per protocol. R: Continue TPN @ current rate and with above changes. Will monitor electrolytes, glucose, and tolerance to TPN. EVAN JOEL, [facility], 12/27/18 [id number]
[2018-12-27] MEDS: diphenhydrAMINE 50 MG/ML VIAL IVP PRN (16:58)
[2018-12-27] MEDS ORDERED: TOTAL PARENTERAL NUTRITION IV SCH ×11 (22:00)
[2018-12-27] MEDS ORDERED: DEXTROSE 70% IV SCH ×11 (22:00)
[2018-12-27] MEDS ORDERED: [UNRECOGNIZED DRUG - OTHER] IV SCH ×11 (22:00)
[2018-12-27] MEDS ORDERED: AMINO ACID IV SCH ×11 (22:00)
[2018-12-28] VITALS (18 sets, daily range): BP systolic 129–179; BP diastolic 70–85
[2018-12-28 03:22] LABS: CALCIUM 8.3 mg/dL (8.5-10.1); CREATININE 0.8 mg/dL (0.7-1.3); GFR 99.6; MAGNESIUM 1.8 mg/dL (1.8-2.4); PHOSPHORUS 2.6 mg/dL (2.6-4.7); POTASSIUM 3.3 mmol/L (3.5-5.1)
[2018-12-28] MEDS: CEFEPIME HCL IV Push 2 GM VIAL. IVP SCH ×3 (05:35→21:31)
[2018-12-28] MEDS: ENALAPRILAT 1.25 MG/ML VIAL. IVP SCH ×3 (05:36→21:41)
[2018-12-28] MEDS: hydrALAZINE 20 MG/ML VIAL. IVP SCH ×3 (05:36→18:42)
--- NOTE | 2018-12-28 08:03 | RAD ---
CHEST AP ONLY History: Cough Comparison: 12/27/2018 Findings: Single view of the chest is submitted. There is again right upper extremity PICC with the tip near the cavoatrial junction. There again has been median sternotomy, valvular prosthesis present. There is improved aeration of the left lung base now with definition of the left hemidiaphragm. There is mild hazy right base airspace opacity somewhat increased. There is no pneumothorax. Cardiac silhouette is stable. Impression: 1. There is increased mild right base airspace opacity/infiltrate, improved aeration of the left lung base now with definition of the left hemidiaphragm. Electronically signed by: Jason Badillo MD (12/28/2018 8:00 AM) [facility]
--- NOTE | 2018-12-28 08:25 | PDOC ---
Infectious Disease Note Subjective Subjective Extubated 12/27 Awake most of the night No fevers TPN Amiorodone gtt Heparin gtt Vital Sign Vital Signs Vital Signs Date Time Temp Pulse Resp B/P (MAP) Pulse Ox O2 Delivery O2 Flow Rate FiO2 12/28/18 06:00 111 161/79 (106) 95 Room Air 12/28/18 04:00 98.7 98.7 12/28/18 00:00 32 12/27/18 23:00 2.0 Physical Exam PHYSICAL EXAM GENERAL: Propped up in bed, resting quietly, opens eyes to name HEENT: Oral cavity dry, poor dentition NECK: Supple. LUNGS: Clear anteriorly HEART: S1, S2. ABDOMEN: Obese, soft, no guarding, bowel sounds present. Rectal tube : Peng EXTREMITIES: No gross edema or cyanosis. Scabs left knee - no redness/warmth/swelling SKIN: Warm to touch. No signs of rash. some healing scraps/echymosis NEUROLOGIC: arouses, no response to questions RUE PICC - clean Labs Lab Laboratory Tests Test 12/27/18 09:15 12/27/18 14:30 12/27/18 20:30 12/28/18 02:52 O2 Saturation 97 % (92-99) Arterial Blood pH 7.47 (7.35-7.45) Arterial Blood pCO2 at Patient Temp 34 mmHg (35-46) Arterial Blood pO2 at Patient Temp 94 mmHg (75-108) Arterial Blood HCO3 24 mmol/L (21-28) Arterial Blood Base Excess 1 mmol/L (-3-3) FiO2 35 Heparin Anti-Xa Act, Unfractionated > 1.10 IU/mL (0.30-0.70) 0.14 IU/mL (0.30-0.70) Glucose (Fingerstick) 158 mg/dL (70-99) Test 12/28/18 03:00 Heparin Anti-Xa Act, Unfractionated 0.35 IU/mL (0.30-0.70) Sodium Level 145 mmol/L (136-145) Potassium Level 3.3 mmol/L (3.5-5.1) Chloride Level 111 mmol/L (98-107) Carbon Dioxide Level 26 mmol/L (21-32) Anion Gap 8 (6-14) Blood Urea Nitrogen 18 mg/dL (8-26) Creatinine 0.8 mg/dL (0.7-1.3) Estimated GFR (Cockcroft-Gault) 99.6 Glucose Level 172 mg/dL (70-99) Calcium Level 8.3 mg/dL (8.5-10.1) Phosphorus Level 2.6 mg/dL (2.6-4.7) Magnesium Level 1.8 mg/dL (1.8-2.4) Micro CXR 1. There is increased mild right base airspace opacity/infiltrate, improved aeration of the left lung base now with definition of the left hemidiaphragm. Objective Assessment UGI bleed s/p EGD 12/24 - Non-variceal bleeding, distal esophagus. Inflammatory/Dieulafoy possible, aggravated by coagulopathy. -S/P PRBCs 12/24 12/25 Acute Resp failure - intubated 12/24 - blood seen on intubation Afib on Amiodarone Transaminitis - ? reactive vs med/TPN vs other - nml lipase Encephaloapathy Fever ? aspiration, PRBCs, infection -better Leukocytosis - better - nml lactic Suspected aspiration Sinusitis Dysphagia failed bedside swallow Recent Alcohol withdrawal s/p fall while intoxicated ? seizure Coagualopathy - Appreciated Heme eval Valvular disorder - Aortic stenosis s/p mechanical aortic valve - cults neg CAD Plan Plan of Care Cont Cefepime, Flagyl and Micafungin 12/24 Cont Dapto fpr now - Previously on Zosyn and doxy 12/20 - 12/24 Repeat Blood cults neg so far D/w nursing Critically ill - improving Attending Co-Sign The patient was seen and interviewed as well as examined at the bedside. The chart was reviewed. The case was discussed. Agree with the plan of care. BC WAGONER APRN Dec 28, 2018 08:25 TAE GELLER MD Dec 28, 2018 11:08
[2018-12-28] MEDS: IPRATRPIUM/ALBUTEROL 0.5/2.5MG 3 ML NEBU. NEB SCH ×4 (08:28→19:59)
[2018-12-28] MEDS: METOPROLOL TART IMMED RELEASE 25 MG TABLET. PO SCH ×2 (08:32→20:34)
[2018-12-28] MEDS: CALCIUM CARBONATE 500 MG TABLET PO SCH ×3 (08:33→14:28)
--- NOTE | 2018-12-28 08:38 | PDOC ---
PULMONARY PROGRESS NOTES Subjective Pt. is extubated on 12/27/18, on 2 liters N/C tolerating well Pt. is CONFUSED this am: tremors headache Denies SOA or increased cough Vitals Vital Signs Date Time Temp Pulse Resp B/P (MAP) Pulse Ox O2 Delivery O2 Flow Rate FiO2 12/28/18 08:28 97 Room Air 12/28/18 06:00 111 161/79 (106) 12/28/18 04:00 98.7 98.7 12/28/18 00:00 32 12/27/18 23:00 2.0 ROS: No Nausea, No Chest Pain, No Abdominal Pain, No Increase Cough General: Alert Lungs: Other (dim in right base ) Cardiovascular: S1, S2 Abdomen: Soft Neuro Exam: Alert Extremities: Other Skin: Warm, Dry Labs Laboratory Tests Test 12/26/18 14:15 12/26/18 21:30 12/27/18 04:50 12/27/18 09:15 White Blood Count 8.3 x10^3/uL (4.0-11.0) 10.8 x10^3/uL (4.0-11.0) Red Blood Count 2.86 x10^6/uL (4.30-5.70) 3.57 x10^6/uL (4.30-5.70) Hemoglobin 8.7 g/dL (13.0-17.5) 10.6 g/dL (13.0-17.5) Hematocrit 25.7 % (39.0-53.0) 31.1 % (39.0-53.0) Mean Corpuscular Volume 90 fL (79-100) 87 fL (79-100) Mean Corpuscular Hemoglobin 31 pg (25-35) 30 pg (25-35) Mean Corpuscular Hemoglobin Concent 34 g/dL (31-37) 34 g/dL (31-37) Red Cell Distribution Width 17.4 % (11.5-14.5) 17.1 % (11.5-14.5) Platelet Count 176 x10^3/uL (140-400) 240 x10^3/uL (140-400) Heparin Anti-Xa Act, Unfractionated < 0.10 IU/mL (0.30-0.70) 0.18 IU/mL (0.30-0.70) Prothrombin Time 15.9 SEC (11.7-14.0) Prothromb Time International Ratio 1.3 (0.8-1.1) Sodium Level 150 mmol/L (136-145) Potassium Level 3.6 mmol/L (3.5-5.1) Chloride Level 114 mmol/L (98-107) Carbon Dioxide Level 28 mmol/L (21-32) Anion Gap 8 (6-14) Blood Urea Nitrogen 19 mg/dL (8-26) Creatinine 0.9 mg/dL (0.7-1.3) Estimated GFR (Cockcroft-Gault) 87.0 Glucose Level 146 mg/dL (70-99) Calcium Level 8.4 mg/dL (8.5-10.1) Phosphorus Level 2.8 mg/dL (2.6-4.7) Magnesium Level 1.9 mg/dL (1.8-2.4) O2 Saturation 97 % (92-99) Arterial Blood pH 7.47 (7.35-7.45) Arterial Blood pCO2 at Patient Temp 34 mmHg (35-46) Arterial Blood pO2 at Patient Temp 94 mmHg (75-108) Arterial Blood HCO3 24 mmol/L (21-28) Arterial Blood Base Excess 1 mmol/L (-3-3) FiO2 35 Test 12/27/18 14:30 12/27/18 20:30 12/28/18 02:52 12/28/18 03:00 Heparin Anti-Xa Act, Unfractionated > 1.10 IU/mL (0.30-0.70) 0.14 IU/mL (0.30-0.70) 0.35 IU/mL (0.30-0.70) Glucose (Fingerstick) 158 mg/dL (70-99) Sodium Level 145 mmol/L (136-145) Potassium Level 3.3 mmol/L (3.5-5.1) Chloride Level 111 mmol/L (98-107) Carbon Dioxide Level 26 mmol/L (21-32) Anion Gap 8 (6-14) Blood Urea Nitrogen 18 mg/dL (8-26) Creatinine 0.8 mg/dL (0.7-1.3) Estimated GFR (Cockcroft-Gault) 99.6 Glucose Level 172 mg/dL (70-99) Calcium Level 8.3 mg/dL (8.5-10.1) Phosphorus Level 2.6 mg/dL (2.6-4.7) Magnesium Level 1.8 mg/dL (1.8-2.4) Laboratory Tests Test 12/27/18 09:15 12/27/18 14:30 12/27/18 20:30 12/28/18 02:52 O2 Saturation 97 % (92-99) Arterial Blood pH 7.47 (7.35-7.45) Arterial Blood pCO2 at Patient Temp 34 mmHg (35-46) Arterial Blood pO2 at Patient Temp 94 mmHg (75-108) Arterial Blood HCO3 24 mmol/L (21-28) Arterial Blood Base Excess 1 mmol/L (-3-3) FiO2 35 Heparin Anti-Xa Act, Unfractionated > 1.10 IU/mL (0.30-0.70) 0.14 IU/mL (0.30-0.70) Glucose (Fingerstick) 158 mg/dL (70-99) Test 12/28/18 03:00 Heparin Anti-Xa Act, Unfractionated 0.35 IU/mL (0.30-0.70) Sodium Level 145 mmol/L (136-145) Potassium Level 3.3 mmol/L (3.5-5.1) Chloride Level 111 mmol/L (98-107) Carbon Dioxide Level 26 mmol/L (21-32) Anion Gap 8 (6-14) Blood Urea Nitrogen 18 mg/dL (8-26) Creatinine 0.8 mg/dL (0.7-1.3) Estimated GFR (Cockcroft-Gault) 99.6 Glucose Level 172 mg/dL (70-99) Calcium Level 8.3 mg/dL (8.5-10.1) Phosphorus Level 2.6 mg/dL (2.6-4.7) Magnesium Level 1.8 mg/dL (1.8-2.4) Medications Active Scripts Medications Dose Route/Sig Max Daily Dose Days Date Category Lorazepam 1 Mg Tablet 1 Tab PO BID 12/10/18 Reported Percocet 7.5-325 Mg Tablet (Oxycodone/Acetaminophen) 1 Each Tablet 1 Tab PO PRN Q6HRS PRN 12/10/18 Reported Coumadin (Warfarin Sodium) 5 Mg Tablet 1 Tab PO DAILY 10/06/17 Reported Lisinopril 20 Mg Tablet 1 Tab PO DAILY 10/06/17 Reported Impression . 1. Acute respiratory failure secondary to severe metabolic acidosis.--improved 2. Metabolic acidosis.-resolved 3. Septic shock versus acute volemic shock.--resolved 4. Leukocytosis----resolved 5. Acute drop in hemoglobin--- stable 6. Alcoholism ---- ongoing 7. Hyponatremia--- improved 8. Protein malnutrition 9. Metaboli/ toxic encephalopathy---- improved 10. Possible aspiration 11. Fever. 12. History of seizures. 13. Chronic obstructive pulmonary disease. 14. Hypertension. 15. Peripheral neuropathy. 16. Status post aortic valve replacement for aortic stenosis. 17. NON VARICEAL BLEED UPON EGD Plan . 1. cont. N/C and IS at bedside 2. cont. TPN, Speech to eval swallow 3.Recs per GI, monitor H/H transfuse PRN 4. recs per neurology 5. antibiotics per ID 6. CXR: today: 1. There is increased mild right base airspace opacity/infiltrate, improved aeration of the left lung base now with definition of the left hemidiaphragm. 7. Aortic stenosis s/p mechanical aortic valve; Echo with LVEF 55%. 8. PaFIb cont amio recs per cardiology 9.CIWA protocol D/W with RN , KYA TID please DVT/GI PPX: heparin gtt/protonix BID MAY NEED LTACH YOHAN COWAN MD Dec 28, 2018 08:38
[2018-12-28] MEDS: NICOTINE 21MG PATCH. TD SCH (08:57)
[2018-12-28] MEDS: ACETAMINOPHEN 650 MG SUPP.RECT. PR PRN ×3 (08:57→21:28)
[2018-12-28] MEDS: PANTOPRAZOLE IV PUSH 40 MG VIAL. IVP SCH ×2 (08:57→21:30)
[2018-12-28] MEDS: POTASSIUM CHLORIDE 10MEQ 100 ML IV SCH ×2 (08:57→10:21)
[2018-12-28] MEDS: MICAFUNGIN 100 MG in IV DEXTROSE 5% 100ML 100 ML IV SCH (08:58)
[2018-12-28] MEDS: LORazepam 1 MG TABLET PO SCH ×2 (09:00→20:34)
[2018-12-28] MEDS ORDERED: POTASSIUM CHL 20MEQ PREMIX 50 ML IV SCH (09:00)
[2018-12-28] MEDS: ASPIRIN RECTAL 300 MG SUPP. PR SCH (09:20)
--- NOTE | 2018-12-28 10:10 | PDOC ---
[facility] [facility] PROGRESS NOTE Chief Complaint Chief Complaint Respiratory failure, now extubated Fall ETOH withdrawal , severe Toxic encephalopathy Altered mental status, worse today Tachycardia Severe alcohol abuse Dysphagia Fever Hypernatremia Fall risk Mild aneurysmal dilation of the ascending aorta History of Present Illness History of Present Illness 12/28/18 Pt was examined in ICU Pt was sitting upright in chair Pt was pleasant and able to converse Rectal bag present Charts and labs reviewed D/w RN and Speech therapist Pt did not pass swallow test and was not fully cooperative K+ was 3.3, down from 3.6 Na+ was 145, down from 150 12/27/18 Pt seen and examined in ICU Pt was extubated 10 mins ago and is able to say a couple words but is still pleasantly confused Discussed with family the improved prognosis of the pt Charts and labs reviewed MRI from yesterday: Cortically based cerebral edema is noted involving bifrontal lobes, right greater than left, as well as symmetric involvement of the bilateral occipital and parietal lobes. Differential considerations would include subacute ischemia from global hyperperfusion. Of note, there is not significant involvement of the basal ganglia as typically seen with cerebral hypoxic injury. Findings may also be seen with posterior reversible encephalopathy syndrome DW RN 12/26/18 Pt seen and examined in ICU Pt remains sedated and intubated Pupils are equal round, reactive, and sensitive to light Charts and labs reviewed Talked to son about the pt's condition, stating that his CT results have changed and may indicate multiple infarcts but that we will be following up with an MRI to get conclusive results. Pt's son was understanding. AC 16/500/3.0/35% 5.0 PEEP AST 519, down from 1390 ALT 982, down from 1059 DW RN and son 12/25/18 Pt seen and examined in the ICU Sedated and intubated Was resting in bed Charts and labs reviewed AC 16/500/3.0/35% 5.0 PEEP AST 1390, ALT 1059 Poor prognosis DW RN 12/24/18 Pt seen and examined bedside INC soa, tachy, dark stool x 2 altered mental status Was resting in BED DW RN; Charts and labs reviewed Replace potassium Failed swallow test Poor prognosis Check serum osmolality 12/17/18 Pt seen and examined in ICU PT still sedated DW RN that she tried to wean the patient off of Precedex but he continued to be combative so she had to continue the sedation meds Consulted neurology to make sure there isn't other pathology causing his mental status change Charts and labs reviewed NA 143 12/16/18 Pt seen and examined in the ICU Pt is sedated with IV Precedex PEGGY RN Pt was combative in the morning Charts and labs reviewed Na: 140 12/15/18 Pt seen and examined in the ICU Pt's son was seen leaving the room Pt is still sedated with Precedex Pt requested pain medications Chart and labs reviewed Hyponatremia resolved Pt is bradycardic with rate of 50 D/w RN 12/14/18 Pt seen and examined in the ICU Pt still sedated with Precedex INR 1.1 Hyponatremia has resolved PEGGY RN Reviewed chart 12/13/18 Pt seen and examined in the ICU Pt was combative and trying to get out of bed all morning. Pt was given Ativan, Haldol, Benadryl, Zyprexa and finally Fentanyl for patient safety. He was comfortably snoring. Discussed with son who was glad to see the pt finally asleep. PEGGY AVALOS Vitals/I&O Vitals/I&O: Vital Signs Date Time Temp Pulse Resp B/P (MAP) Pulse Ox O2 Delivery O2 Flow Rate FiO2 12/28/18 08:28 97 Room Air 12/28/18 06:00 111 161/79 (106) 12/28/18 04:00 98.7 98.7 12/28/18 00:00 32 12/27/18 23:00 2.0 I & O 12/27/18 12/27/18 12/28/18 15:00 23:00 07:00 Intake Total 0 ml 0 ml Output Total 1050 ml 1225 ml 725 ml Balance -1050 ml -1225 ml -725 ml Physical Exam Physical Exam: GENERAL: Propped up in seat resting quietly, HEENT: Oral cavity dry, poor dentition NECK: Supple. LUNGS: Clear anteriorly HEART: S1, S2. ABDOMEN: Obese, soft, no guarding, bowel sounds present. Rectal tube : Peng EXTREMITIES: No gross edema or cyanosis. Scabs left knee - no redness/warmth/swelling SKIN: Warm to touch. No signs of rash. some healing scraps/echymosis NEUROLOGIC: arouses, no response to questions RUE PICC - clean General: Alert, Cooperative, No acute distress Heart: Regular rate, Normal S1, Normal S2, No murmurs, Other Lungs: Other (dim in right base ) Abdomen: Normal bowel sounds, Soft, No tenderness, No masses (HEPATOMEGALY) Extremities: No cyanosis, Other (trace bilateral LE edema ) Skin: No rashes, No significant lesion Labs Labs: Laboratory Tests Test 12/27/18 14:30 12/27/18 20:30 12/28/18 02:52 12/28/18 03:00 Heparin Anti-Xa Act, Unfractionated > 1.10 IU/mL (0.30-0.70) 0.14 IU/mL (0.30-0.70) 0.35 IU/mL (0.30-0.70) Glucose (Fingerstick) 158 mg/dL (70-99) Sodium Level 145 mmol/L (136-145) Potassium Level 3.3 mmol/L (3.5-5.1) Chloride Level 111 mmol/L (98-107) Carbon Dioxide Level 26 mmol/L (21-32) Anion Gap 8 (6-14) Blood Urea Nitrogen 18 mg/dL (8-26) Creatinine 0.8 mg/dL (0.7-1.3) Estimated GFR (Cockcroft-Gault) 99.6 Glucose Level 172 mg/dL (70-99) Calcium Level 8.3 mg/dL (8.5-10.1) Phosphorus Level 2.6 mg/dL (2.6-4.7) Magnesium Level 1.8 mg/dL (1.8-2.4) Review of Systems Review of Systems: Pt denies fever Pt denies AMAYA Assessment and Plan Assessmemt and Plan Problems Medical Problems: (1) Alcohol abuse Status: Acute (2) Closed head injury Status: Acute Assessment Cerebral edema Respiratory failure EtOH Withdrawal Liver shock Hypokalemia GI Bleed Plan ICU monitoring Speech therapy Hope to encourage PO intake PT/OT Appreciate neuro, GI, ID, pulm, cardio input Trend Hgb Trend LFTs TPN IV abx Heparin ggt Amiodarone ggt Full code Comment Review of Relevant I have reviewed the following items robert (where applicable) has been applied. Medications: Current Medications Medications (Trade) Dose Ordered Sig/Siddharth Route PRN Reason Start Time Stop Time Status Last Admin Dose Admin Potassium Acetate 85 meq/Potassium Phosphate 17 mmol/ Magnesium Sulfate 10 meq/Calcium Gluconate 10 meq/ Multivitamins 10 ml/Chromium/ Copper/Manganese/ Seleni/Zn 1 ml/ Thiamine HCl 100 mg/Folic Acid 1 mg/Total Parenteral Nutrition/Amino Acids/Dextrose/ Fat Emulsion Intravenous 1,992 ml @ 83 mls/hr TPN CONT IV 12/27/18 22:00 12/28/18 21:59 12/27/18 21:33 Potassium Chloride/Water 100 ml @ 100 mls/hr Q1H IV 12/28/18 09:00 12/28/18 10:59 12/28/18 08:57 PAT SANABRIA III DO Dec 28, 2018 10:10
[2018-12-28] MEDS: HEPARIN 25,000UTS/500ML PREMIX 500 ML IV PRN (10:22)
--- NOTE | 2018-12-28 11:20 | PDOC ---
PROGRESS NOTES Assessment Problems Medical Problems: (1) Alcohol abuse Status: Acute (2) Closed head injury Status: Acute Toxic/ anoxic/metabolic encephalopathy, given marked improvement, this may indeed be posterior reversible encephalopathy syndrome as noted on the MRI. GI bleeding, anemia. Shock and hypotensive events. Acute respiratory failure. Pleural effusion. Hx of seizure? AFib was on Coumadin. HTN. HLD. COPD. Peripheral neuropathy. Thrombocytosis Plan Okay to transfer to the floor I told the patient we will follow the patient clinically, I see no need for serial MRI or EEG studies. Rehabilitation modalities. Thiamine. Subjective denies pain Objective Vital Signs Date Time Temp Pulse Resp B/P (MAP) Pulse Ox O2 Delivery O2 Flow Rate FiO2 12/28/18 10:00 96 30 158/83 (108) 96 Nasal Cannula 12/28/18 08:00 99.8 99.8 12/27/18 23:00 2.0 Intake and Output 12/28/18 07:00 Intake Total 0 ml Output Total 3100 ml Balance -3100 ml Intake Oral 0 ml Output Urine Total 2900 ml Stool Total 200 ml PHYSICAL EXAM Extubated, alert, follows some commands, answers "none of your business," to orientation questions, but then when I tucked about him being on a vitamin tells me that he is eating well, almost an appropriate response Pupils: Both reactive, right a little bit larger than left EOMI. CN: no focal findings. Muscle tone: normal. Muscle strength: Moves all extremities DTR: 1+ Plantar reflex: Flexor Gait: not examined in bed. Sensory exam: not cooperative Cerebellar: not cooperative Review of Relevant I have reviewed the following items robert (where applicable) has been applied. Labs Laboratory Tests Test 12/26/18 14:15 12/26/18 21:30 12/27/18 04:50 12/27/18 09:15 White Blood Count 8.3 x10^3/uL (4.0-11.0) 10.8 x10^3/uL (4.0-11.0) Red Blood Count 2.86 x10^6/uL (4.30-5.70) 3.57 x10^6/uL (4.30-5.70) Hemoglobin 8.7 g/dL (13.0-17.5) 10.6 g/dL (13.0-17.5) Hematocrit 25.7 % (39.0-53.0) 31.1 % (39.0-53.0) Mean Corpuscular Volume 90 fL (79-100) 87 fL (79-100) Mean Corpuscular Hemoglobin 31 pg (25-35) 30 pg (25-35) Mean Corpuscular Hemoglobin Concent 34 g/dL (31-37) 34 g/dL (31-37) Red Cell Distribution Width 17.4 % (11.5-14.5) 17.1 % (11.5-14.5) Platelet Count 176 x10^3/uL (140-400) 240 x10^3/uL (140-400) Heparin Anti-Xa Act, Unfractionated < 0.10 IU/mL (0.30-0.70) 0.18 IU/mL (0.30-0.70) Prothrombin Time 15.9 SEC (11.7-14.0) Prothromb Time International Ratio 1.3 (0.8-1.1) Sodium Level 150 mmol/L (136-145) Potassium Level 3.6 mmol/L (3.5-5.1) Chloride Level 114 mmol/L (98-107) Carbon Dioxide Level 28 mmol/L (21-32) Anion Gap 8 (6-14) Blood Urea Nitrogen 19 mg/dL (8-26) Creatinine 0.9 mg/dL (0.7-1.3) Estimated GFR (Cockcroft-Gault) 87.0 Glucose Level 146 mg/dL (70-99) Calcium Level 8.4 mg/dL (8.5-10.1) Phosphorus Level 2.8 mg/dL (2.6-4.7) Magnesium Level 1.9 mg/dL (1.8-2.4) O2 Saturation 97 % (92-99) Arterial Blood pH 7.47 (7.35-7.45) Arterial Blood pCO2 at Patient Temp 34 mmHg (35-46) Arterial Blood pO2 at Patient Temp 94 mmHg (75-108) Arterial Blood HCO3 24 mmol/L (21-28) Arterial Blood Base Excess 1 mmol/L (-3-3) FiO2 35 Test 12/27/18 14:30 12/27/18 20:30 12/28/18 02:52 12/28/18 03:00 Heparin Anti-Xa Act, Unfractionated > 1.10 IU/mL (0.30-0.70) 0.14 IU/mL (0.30-0.70) 0.35 IU/mL (0.30-0.70) Glucose (Fingerstick) 158 mg/dL (70-99) Sodium Level 145 mmol/L (136-145) Potassium Level 3.3 mmol/L (3.5-5.1) Chloride Level 111 mmol/L (98-107) Carbon Dioxide Level 26 mmol/L (21-32) Anion Gap 8 (6-14) Blood Urea Nitrogen 18 mg/dL (8-26) Creatinine 0.8 mg/dL (0.7-1.3) Estimated GFR (Cockcroft-Gault) 99.6 Glucose Level 172 mg/dL (70-99) Calcium Level 8.3 mg/dL (8.5-10.1) Phosphorus Level 2.6 mg/dL (2.6-4.7) Magnesium Level 1.8 mg/dL (1.8-2.4) Test 12/28/18 09:45 Heparin Anti-Xa Act, Unfractionated 0.90 IU/mL (0.30-0.70) Laboratory Tests Test 12/27/18 14:30 12/27/18 20:30 12/28/18 02:52 12/28/18 03:00 Heparin Anti-Xa Act, Unfractionated > 1.10 IU/mL (0.30-0.70) 0.14 IU/mL (0.30-0.70) 0.35 IU/mL (0.30-0.70) Glucose (Fingerstick) 158 mg/dL (70-99) Sodium Level 145 mmol/L (136-145) Potassium Level 3.3 mmol/L (3.5-5.1) Chloride Level 111 mmol/L (98-107) Carbon Dioxide Level 26 mmol/L (21-32) Anion Gap 8 (6-14) Blood Urea Nitrogen 18 mg/dL (8-26) Creatinine 0.8 mg/dL (0.7-1.3) Estimated GFR (Cockcroft-Gault) 99.6 Glucose Level 172 mg/dL (70-99) Calcium Level 8.3 mg/dL (8.5-10.1) Phosphorus Level 2.6 mg/dL (2.6-4.7) Magnesium Level 1.8 mg/dL (1.8-2.4) Test 12/28/18 09:45 Heparin Anti-Xa Act, Unfractionated 0.90 IU/mL (0.30-0.70) Microbiology 12/24/18 Blood Culture - Preliminary, Resulted NO GROWTH AFTER 4 DAYS 12/20/18 Urine Culture - Final, Complete 12/20/18 Urine Culture Result 1 (AMARA) - Final, Complete Medications Current Medications Fentanyl Citrate (Fentanyl 2ml Vial) 50 mcg 1X ONCE IV Last administered on 12/10/18 20:03; Start 12/10/18 at 19:15; Stop 12/10/18 at 19:16; Status DC Iohexol (Omnipaque 300 Mg/ml) 75 ml 1X ONCE IV Last administered on 12/10/18at 19:43; Start 12/10/18 at 19:15; Stop 12/10/18 at 19:16; Status DC Sodium Chloride 1,000 ml @ 1,000 mls/hr 1X ONCE IV Last administered on 12/10/18at 19:45; Start 12/10/18 at 19:45; Stop 12/10/18 at 20:44; Status DC Morphine Sulfate (Morphine Sulfate) 2 mg PRN Q2HR PRN IV PAIN Last administered on 12/11/18 12:03; Start 12/10/18 at 20:15; Stop 12/11/18 at 20:14; Status DC Sodium Chloride 1,000 ml @ 100 mls/hr Q10H IV Last administered on 12/11/18 08:10; Start 12/10/18 at 20:07; Stop 12/11/18 at 12:21; Status DC Diphtheria/ Tetanus/Acell Pertussis (Boostrix) 0.5 ml ONCE ONCE VAX IM Last administered on 12/10/18 21:07; Start 12/10/18 at 20:15; Stop 12/10/18 at 20:16; Status DC Ondansetron HCl (Zofran) 4 mg PRN Q6HRS PRN IV NAUSEA/VOMITING 1ST CHOICE Last administered on 12/21/18 03:27; Start 12/11/18 at 05:30 Multivitamins (Thera M Plus) 1 tab DAILY PO Last administered on 12/12/18 08:14; Start 12/11/18 at 09:00; Stop 12/13/18 at 11:25; Status DC Folic Acid (Folic Acid) 1 mg DAILY PO Last administered on 12/12/18 08:14; Start 12/11/18 at 09:00; Stop 12/13/18 at 11:25; Status DC Chlordiazepoxide (Librium) 50 mg PRN Q1HR PRN PO For CIWA 8-14 2ND CHOICE Last administered on 12/18/18 18:03; Start 12/11/18 at 05:30 Chlordiazepoxide (Librium) 100 mg PRN Q1HR PRN PO For CIWA 15+ 2ND CHOICE Last administered on 12/13/18 01:11; Start 12/11/18 at 05:30 Lorazepam (Ativan) 4 mg PRN Q1HR PRN PO For CIWA 8-14 Last administered on 12/13/18 02:48; Start 12/11/18 at 05:30 Lorazepam (Ativan) 8 mg PRN Q1HR PRN PO For CIWA 15 or greater; Start 12/11/18 at 05:30 Lorazepam (Ativan Inj) 2 mg PRN Q1HR PRN IV For CIWA 8-14 Last administered on 12/28/18 09:09; Start 12/11/18 at 05:30 Lorazepam (Ativan Inj) 4 mg PRN Q1HR PRN IV For CIWA 15 or greater Last administered on 12/26/18 22:11; Start 12/11/18 at 05:30 Haloperidol Lactate (Haldol Inj) 5 mg PRN Q4HRS PRN IVP Hallucinatns,Confusn,Delirium Last administered on 12/27/18 19:18; Start 12/11/18 at 05:30 Diphenhydramine HCl (Benadryl) 25 mg PRN Q15MIN PRN IVP EPS symptoms 2'Haldol admin Last administered on 12/27/18 16:58; Start 12/11/18 at 05:30 Clonidine HCl (Catapres) 0.1 mg PRN Q1HR PRN PO SBP > 180 or DBP > 100, MRX3; Start 12/11/18 at 05:30 Sodium Chloride 1,000 ml @ 60 mls/hr [id number] IV Last administered on 12/21/18at 07:26; Start 12/11/18 at 13:00; Stop 12/22/18 at 14:53; Status DC Sodium Chloride 150 ml @ 50 mls/hr 1X ONCE IV Last administered on 12/11/18at 13:48; Start 12/11/18 at 13:00; Stop 12/11/18 at 15:59; Status DC Lisinopril (Prinivil) 20 mg DAILY PO Last administered on 12/19/18at 08:00; Start 12/11/18 at 14:00; Stop 12/21/18 at 15:19; Status DC Oxycodone/ Acetaminophen (Percocet 7.5/ 325) 1 tab PRN Q6HRS PRN PO MODERATE TO SEVERE PAIN Last administered on 12/19/18at 06:19; Start 12/11/18 at 13:30 Calcium Carbonate/ Glycine (Oscal) 500 mg TIDAFTMEAL PO Last administered on 12/19/18at 17:22; Start 12/12/18 at 13:00 Ziprasidone (Geodon Im) 20 mg 1X ONCE IM ; Start 12/13/18 at 05:00; Stop 12/13/18 at 18:51; Status DC Lorazepam 100 mg/ Sodium Chloride 100 ml @ 2 mls/hr CONT PRN IV SEDATION Last administered on 12/13/18at 19:56; Start 12/13/18 at 07:00; Stop 12/18/18 at 16 :33; Status DC Olanzapine (ZyPREXA IM) 10 mg PRN Q8HRS PRN IM AGITATION Last administered on 12/19/18at 00:05; Start 12/13/18 at 08:30 Olanzapine (ZyPREXA IM) 10 mg STK-MED ONCE IM ; Start 12/13/18 at 08:37; Stop 12/13/18 at 08:38; Status DC Fentanyl Citrate (Fentanyl 2ml Vial) 75 mcg 1X ONCE IV ; Start 12/13/18 at 09:45; Stop 12/13/18 at 19:20; Status DC Fentanyl Citrate (Fentanyl 2ml Vial) 100 mcg STK-MED ONCE .ROUTE ; Start 12/13/18 at 09:47; Stop 12/13/18 at 09:48; Status DC Fentanyl Citrate (Fentanyl 2ml Vial) 75 mcg PRN Q30MIN PRN IV PAIN Last administered on 12/27/18at 23:30; Start 12/13/18 at 10:00 Multivitamins 10 ml/Thiamine HCl 100 mg/Folic Acid 1 mg/Sodium Chloride 1,011.2 ml @ 100 mls/ hr DAILY IV Last administered on 12/18/18at 08:55; Start 12/14/18 at 12:00; Stop 12/18/18 at 19:07; Status DC Enoxaparin Sodium (Lovenox 80mg Syringe) 80 mg Q12HR SQ Last administered on 12/21/18at 07:50; Start 12/13/18 at 14:30; Stop 12/21/18 at 12:56; Status DC Warfarin Sodium (Coumadin Per Pharmacy) 1 each PRN DAILY PRN MC SEE COMMENTS Last administered on 12/24/18at 11:27; Start 12/13/18 at 14:15; Stop 12/24/18 at 16:10; Status DC Warfarin Sodium (Coumadin) 7.5 mg 1X WARF ONCE PO ; Start 12/13/18 at 16:00; Stop 12/13/18 at 16:01; Status DC Nicotine (Nicoderm Cq 21mg) 1 patch DAILY TD Last administered on 12/28/18at 08:57; Start 12/14/18 at 09:00 Dexmedetomidine HCl 400 mcg/ Sodium Chloride 100 ml @ 0 mls/hr CONT PRN IV PER PROTOCOL Last administered on 12/18/18at 00:12; Start 12/14/18 at 01:45; Stop 12/18/18 at 16:33; Status DC Sodium Chloride 500 ml @ 500 mls/hr 1X PRN PRN IV SEE COMMENTS; Start 12/14/18 at 01:45; Stop 12/20/18 at 11:56; Status DC Atropine Sulfate (ATROPINE 0.5mg SYRINGE) 0.5 mg PRN Q5MIN PRN IV SEE COMMENTS; Start 12/14/18 at 01:45; Stop 12/20/18 at 11:55; Status DC Nicotine (Nicoderm Cq 21mg) 1 patch STK-MED ONCE TD ; Start 12/14/18 at 01:57; Stop 12/14/18 at 01:57; Status DC Lorazepam (Ativan) 1 mg BID PO Last administered on 12/19/18at 08:00; Start 12/14/18 at 09:00 Warfarin Sodium (Coumadin) 5 mg DAILY16 PO ; Start 12/14/18 at 16:00; Stop 12/14/18 at 09:21; Status DC Warfarin Sodium (Coumadin) 7.5 mg 1X WARF ONCE PO ; Start 12/14/18 at 16:00; Stop 12/14/18 at 16:01; Status DC Enalaprilat (Vasotec Inj) 1.25 mg Q8HRS IVP Last administered on 12/28/18at 05:36; Start 12/14/18 at 15:00 Nicardipine HCl 50 mg/Sodium Chloride 250 ml @ 25 mls/hr CONT PRN IV SEE I/O RECORD Last administered on 12/16/18at 09:58; Start 12/14/18 at 17:45; Stop 12/18/18 at 16:33; Status DC Nicardipine HCl 50 mg/Sodium Chloride 250 ml @ 25 mls/hr CONT PRN IV SEE I/O RECORD; Start 12/14/18 at 18:00; Status UNV Warfarin Sodium (Coumadin) 7.5 mg 1X WARF ONCE PO ; Start 12/15/18 at 16:00; Stop 12/15/18 at 16:01; Status DC Warfarin Sodium (Coumadin - No Dose Today) 1 each 1X WARF ONCE MC ; Start 12/16/18 at 16:00; Stop 12/16/18 at 16:01; Status DC Warfarin Sodium (Coumadin) 7.5 mg 1X WARF ONCE PO Last administered on 12/18/18at 08:54; Start 12/17/18 at 16:00; Stop 12/17/18 at 16:01; Status DC Ceftriaxone Sodium (Rocephin) 1 gm Q24H IVP Last administered on 12/20/18at 12:08; Start 12/18/18 at 12:30; Stop 12/20/18 at 15:14; Status DC Metoprolol Tartrate (Lopressor) 25 mg BID PO Last administered on 12/19/18at 08:01; Start 12/18/18 at 12:30 Acetaminophen/ Codeine Phosphate (Tylenol #3) 1 tab PRN Q6HRS PRN PO PAIN MILD TO MOD; Start 12/18/18 at 12:00; Stop 12/18/18 at 12:55; Status DC Lactobacillus Rhamnosus (Culturelle) 1 cap BID PO Last administered on 12/19/18at 08:00; Start 12/18/18 at 21:00; Stop 12/24/18 at 11:17; Status DC Acetaminophen (Tylenol) 650 mg PRN Q6HRS PRN PO FEVER Last administered on 12/19/18 17:23; Start 12/18/18 at 13:00 Warfarin Sodium (Coumadin) 7.5 mg 1X WARF ONCE PO Last administered on 12/18/18at 18:03; Start 12/18/18 at 16:00; Stop 12/18/18 at 16:11; Status DC Albuterol/ Ipratropium (Duoneb) 3 ml 1X ONCE NEB Last administered on 12/19/18 07:15; Start 12/19/18 at 07:15; Stop 12/19/18 at 07:16; Status DC Ziprasidone (Geodon Im) 10 mg 1X ONCE IM Last administered on 12/19/18at 07:42; Start 12/19/18 at 07:15; Stop 12/19/18 at 07:16; Status DC Warfarin Sodium (Coumadin) 7.5 mg 1X WARF ONCE PO Last administered on 12/19/18 17:23; Start 12/19/18 at 16:00; Stop 12/19/18 at 16:01; Status DC Potassium Chloride (Klor-Con) 40 meq 1X ONCE PO Last administered on 12/19/18at 16:12; Start 12/19/18 at 14:00; Stop 12/19/18 at 14:01; Status DC Potassium Chloride (Klor-Con) 20 meq DAILYWBKFT PO ; Start 12/20/18 at 08:00; Stop 12/28/18 at 08:35; Status DC Doxycycline Hyclate (Vibra-Tab) 100 mg BID PO Last administered on 12/19/18at 17:22; Start 12/19/18 at 17:30; Stop 12/19/18 at 17:57; Status DC Doxycycline Hyclate 100 mg/ Dextrose 100 ml @ 50 mls/hr Q12HR IV Last administered on 12/23/18at 22:17; Start 12/19/18 at 21:00; Stop 12/24/18 at 10:15; Status DC Metoprolol Tartrate (Lopressor Vial) 5 mg PRN Q6HRS PRN IVP HYPERTENSION Last administered on 12/24/18at 07:22; Start 12/19/18 at 18:00 Scopolamine (Transderm-Scop) 1 patch Q3DAYS TD Last administered on 12/26/18at 09:29; Start 12/20/18 at 09:00 Potassium Chloride/Water 100 ml @ 100 mls/hr Q1H IV Last administered on 12/20/18at 10:36; Start 12/20/18 at 06:00; Stop 12/20/18 at 09:59; Status DC Potassium Chloride (Klor-Con) 40 meq 1X ONCE PO ; Start 12/20/18 at 08:00; Stop 12/20/18 at 08:01; Status DC Acetaminophen (Tylenol Supp) 650 mg PRN Q6HRS PRN FL MILD PAIN / TEMP Last administered on 12/28/18at 09:15; Start 12/20/18 at 07:15 Warfarin Sodium (Coumadin) 7.5 mg 1X WARF ONCE PO ; Start 12/20/18 at 16:00; Stop 12/20/18 at 16:01; Status DC Hydralazine HCl (Apresoline Inj) 10 mg PRN Q4HRS PRN IVP ELEVATED BP, SEE COMMENTS Last administered on 12/22/18at 11:07; Start 12/20/18 at 14:30 Potassium Chloride (Klor-Con) 40 meq 1X ONCE PO ; Start 12/20/18 at 14:30; Stop 12/20/18 at 14:41; Status DC Potassium Chloride (Klor-Con) 20 meq DAILYWBKFT PO ; Start 12/21/18 at 08:00; Stop 12/25/18 at 11:25; Status DC Albuterol/ Ipratropium (Duoneb) 3 ml RTQID NEB Last administered on 12/28/18at 08:28; Start 12/20/18 at 16:00 Piperacillin Sod/ Tazobactam Sod 3.375 gm/Sodium Chloride 50 ml @ 100 mls/hr Q6HRS IV Last administered on 12/24/18at 05:09; Start 12/20/18 at 16:00; Stop 12/24/18 at 10:15; Status DC Amino Acids/ Glycerin/ Electrolytes 1,000 ml @ 75 mls/hr [id number] IV Last administered on 12/25/18at 09:05; Start 12/21/18 at 13:00; Stop 12/25/18 at 21:59; Status DC Warfarin Sodium (Coumadin) 1 mg 1X WARF ONCE PO ; Start 12/21/18 at 16:00; Stop 12/21/18 at 16:01; Status DC Sodium Chloride 1,000 ml @ 75 mls/hr 1X ONCE IV Last administered on 12/21/18at 13:49; Start 12/21/18 at 13:15; Stop 12/22/18 at 02:34; Status DC Potassium Chloride/Water 100 ml @ 100 mls/hr Q1H IV Last administered on 12/22/18at 11:03; Start 12/22/18 at 06:00; Stop 12/22/18 at 09:59; Status DC Sodium Chloride 1,000 ml @ 75 mls/hr 1X ONCE IV Last administered on 12/22/18at 14:49; Start 12/22/18 at 14:30; Stop 12/23/18 at 03:49; Status DC Potassium Chloride 20 meq/ Sodium Chloride 1,010 ml @ 75 mls/hr 1X ONCE IV Last administered on 12/22/18at 17:51; Start 12/22/18 at 16:00; Stop 12/23/18 at 05:27; Status DC Hydralazine HCl (Apresoline Inj) 10 mg Q6HRS IVP Last administered on 12/28/18at 05:36; Start 12/22/18 at 18:00 Potassium Chloride/Water 100 ml @ 100 mls/hr Q1H IV Last administered on 12/23/18at 14:01; Start 12/23/18 at 06:00; Stop 12/23/18 at 09:59; Status DC Potassium Chloride/Water 50 ml @ 50 mls/hr Q1H IV ; Start 12/23/18 at 11:15; Stop 12/23/18 at 13:14; Status UNV Potassium Chloride/Water 100 ml @ 100 mls/hr Q1H IV ; Start 12/23/18 at 11:30; Stop 12/23/18 at 13:04; Status DC Warfarin Sodium (Coumadin - No Dose Today) 1 each 1X WARF ONCE MC Last administered on 12/23/18at 16:00; Start 12/23/18 at 16:00; Stop 12/23/18 at 16:01; Status DC Pantoprazole Sodium (PROTONIX VIAL for IV PUSH) 40 mg DAILYAC IVP Last administered on 12/23/18at 15:21; Start 12/23/18 at 15:00; Stop 12/24/18 at 10:43; Status DC Cefepime HCl (Maxipime) 2 gm Q8HRS IVP Last administered on 12/28/18at 05:35; Start 12/24/18 at 10:00 Metronidazole 100 ml @ 100 mls/hr Q8HRS IV Last administered on 12/28/18at 05:34; Start 12/24/18 at 10:00 Daptomycin 460 mg/ Sodium Chloride 50 ml @ 100 mls/hr Q24H IV Last administered on 12/27/18at 10:58; Start 12/24/18 at 11:00; Stop 12/28/18 at 11:10; Status DC Micafungin Sodium 100 mg/Dextrose 100 ml @ 100 mls/hr Q24H IV Last administered on 12/28/18at 08:58; Start 12/24/18 at 12:00; Stop 12/28/18 at 11:10; Status DC Pantoprazole Sodium 80 mg/ Sodium Chloride 100 ml @ 10 mls/hr Q10H IV Last administered on 12/26/18at 13:23; Start 12/24/18 at 11:00; Stop 12/26/18 at 15:12; Status DC Lorazepam (Ativan) 1 mg PRN Q6HRS PRN PO ANXIETY / AGITATION 1ST CHOICE; Start 12/24/18 at 10:45 Ondansetron HCl (Zofran) 4 mg PRN Q6HRS PRN IV NAUSEA/VOMITING; Start 12/24/18 at 10:45; Stop 12/24/18 at 10:52; Status DC Info (Icu Electrolyte Protocol) 1 ea DAILY MC Last administered on 12/25/18at 08:50; Start 12/25/18 at 09:00 Sodium Chloride (Normal Saline Flush) 3 ml QSHIFT PRN IV AFTER MEDS AND BLOOD DRAWS; Start 12/24/18 at 10:45 Sodium Chloride 1,000 ml @ 2,130 mls/hr Q29M IV Last administered on 12/24/18at 12:13; Start 12/24/18 at 10:50; Stop 12/24/18 at 11:50; Status DC Sodium Chloride 500 ml @ 1,000 mls/hr PRN Q30MIN PRN IV SEE COMMENTS; Start 12/24/18 at 11:00 Norepinephrine Bitartrate 250 ml @ 0 mls/hr CONT PRN IV SEE COMMENTS Last administered on 12/24/18at 20:22; Start 12/24/18 at 11:00; Stop 12/27/18 at 09:21; Status DC Dobutamine HCl/ Dextrose 250 ml @ 0 mls/hr CONT PRN IV SEE COMMENTS; Start 12/24/18 at 11:00 Sodium Bicarbonate (Sodium Bicarb Adult 8.4% Syr) 100 meq 1X ONCE IV Last administered on 12/24/18at 11:16; Start 12/24/18 at 11:15; Stop 12/24/18 at 11:16; Status DC Phytonadione (Vitamin K Ampule) 5 mg 1X ONCE SQ Last administered on 12/24/18at 12:24; Start 12/24/18 at 11:15; Stop 12/24/18 at 11:22; Status DC Succinylcholine Chloride (Anectine) 200 mg STK-MED ONCE .ROUTE ; Start 12/24/18 at 11:20; Stop 12/24/18 at 11:21; Status DC Midazolam HCl (Versed) 5 mg STK-MED ONCE .ROUTE ; Start 12/24/18 at 11:21; Stop 12/24/18 at 11:21; Status DC Warfarin Sodium (Coumadin - No Dose Today) 1 each 1X WARF ONCE MC ; Start 12/24/18 at 16:00; Stop 12/24/18 at 22:25; Status DC Atropine Sulfate (ATROPINE 1mg SYRINGE) 1 mg STK-MED ONCE .ROUTE ; Start 12/24/18 at 11:30; Stop 12/24/18 at 11:30; Status DC Epinephrine HCl (Adrenalin) 1 mg STK-MED ONCE .ROUTE ; Start 12/24/18 at 11:30; Stop 12/24/18 at 11:30; Status DC Succinylcholine Chloride (Anectine) 60 mg 1X ONCE IV Last administered on 12/24/18at 12:04; Start 12/24/18 at 11:45; Stop 12/24/18 at 11:46; Status DC Midazolam HCl (Versed) 2 mg 1X ONCE IV Last administered on 12/24/18at 11:30; Start 12/24/18 at 11:45; Stop 12/24/18 at 11:46; Status DC Epinephrine HCl (EPINEPHrine SYRINGE) 1 mg 1X ONCE IV ; Start 12/24/18 at 11:45; Stop 12/24/18 at 11:46; Status DC Sodium Chloride 1,000 ml @ 1,000 mls/hr 1X ONCE IV ; Start 12/24/18 at 11:45; Stop 12/24/18 at 12:44; Status DC Midazolam HCl 100 ml @ 5 mls/hr CONT PRN IV SEE I/O RECORD Last administered on 12/25/18at 23:40; Start 12/24/18 at 12:00; Stop 12/27/18 at 09:21; Status DC Fentanyl Citrate 30 ml @ 0 mls/hr CONT PRN IV SEE PROTOCOL Last administered on 12/26/18at 05:26; Start 12/24/18 at 12:00 Midazolam HCl (Versed) 2 mg 1X ONCE IV ; Start 12/24/18 at 12:15; Stop 12/24/18 at 12:16; Status DC Metoclopramide HCl (Reglan Vial) 10 mg 1X ONCE IVP Last administered on 12/24/18at 15:00; Start 12/24/18 at 12:45; Stop 12/24/18 at 12:46; Status DC Vasopressin 40 unit/Dextrose 102 ml @ 6 mls/hr CONT PRN IV SEE I/O RECORD Last administered on 12/26/18at 12:38; Start 12/24/18 at 13:00; Stop 12/27/18 at 09:21; Status DC Albumin Human 500 ml @ As Directed STK-MED ONCE IV ; Start 12/24/18 at 14:37; Stop 12/24/18 at 14:37; Status DC Albumin Human 500 ml @ 125 mls/hr 1X ONCE IV Last administered on 12/24/18at 14:39; Start 12/24/18 at 14:45; Stop 12/24/18 at 18:44; Status DC Digoxin (Lanoxin) 500 mcg 1X ONCE IV Last administered on 12/24/18at 15:30; Start 12/24/18 at 15:30; Stop 12/24/18 at 15:31; Status DC Digoxin (Lanoxin) 500 mcg STK-MED ONCE .ROUTE ; Start 12/24/18 at 15:07; Stop 12/24/18 at 15:08; Status DC Phytonadione (Vitamin K Ampule) 10 mg 1X ONCE SQ Last administered on 12/24/18at 17:36; Start 12/24/18 at 15:45; Stop 12/24/18 at 15:49; Status DC Amiodarone HCl 150 mg/Dextrose 103 ml @ 618 mls/hr 1X ONCE IV Last administered on 12/24/18at 17:09; Start 12/24/18 at 16:00; Stop 12/24/18 at 16: 09; Status DC Amiodarone HCl 900 mg/Dextrose 518 ml @ 0 mls/hr CONT PRN IV SEE I/O RECORD Last administered on 12/24/18at 17:55; Start 12/24/18 at 16:00; Stop 12/24/18 at 17:55; Status DC Phytonadione (Vitamin K Ampule) 10 mg 1X ONCE SQ ; Start 12/24/18 at 17:00; Stop 12/24/18 at 17:01; Status DC Potassium Chloride/Water 50 ml @ 50 mls/hr Q1H IV Last administered on 12/25/18at 12:37; Start 12/25/18 at 09:00; Stop 12/25/18 at 12:59; Status DC Potassium Chloride/Water 50 ml @ 0 mls/hr Q1H IV ; Start 12/25/18 at 08:30; Stop 12/25/18 at 11:31; Status UNV Info (Tpn Per Pharmacy) 1 each PRN DAILY PRN MC SEE COMMENTS Last administered on 12/27/18at 15:18; Start 12/25/18 at 09:45 Sodium Chloride 50 meq/Potassium Acetate 70 meq/ Potassium Phosphate 13.6 mmol/Magnesium Sulfate 10 meq/ Calcium Gluconate 10 meq/ Multivitamins 10 ml/Chromium/ Copper/Manganese/ Seleni/Zn 1 ml/ Total Parenteral Nutrition/Amino Acids/Dextrose/ Fat Emulsion Intravenous 1,512 ml @ 63 mls/hr TPN CONT IV Last administered on 12/25/18at 21:37; Start 12/25/18 at 22:00; Stop 12/26/18 at 21:59; Status DC Amiodarone HCl 900 mg/Dextrose 518 ml @ 17 mls/hr CONT PRN IV .; Start 12/25/18 at 20:00; Status Cancel Amiodarone HCl 900 mg/Dextrose 518 ml @ 0 mls/hr CONT PRN IV SEE I/O RECORD Last administered on 12/25/18at 20:15; Start 12/25/18 at 20:15; Stop 12/25/18 at 20:15; Status DC Aspirin (Aspirin Rectal Supp) 300 mg DAILY FL Last administered on 12/28/18at 09:20; Start 12/26/18 at 11:00 Amiodarone HCl 900 mg/Dextrose 518 ml @ 33 mls/hr CONT PRN IV SEE I/O RECORD; Start 12/26/18 at 12:45; Stop 12/27/18 at 01:06; Status DC Potassium Acetate 70 meq/Potassium Phosphate 17 mmol/ Magnesium Sulfate 10 meq/Calcium Gluconate 10 meq/ Multivitamins 10 ml/Chromium/ Copper/Manganese/ Seleni/Zn 1 ml/ Thiamine HCl 100 mg/Folic Acid 1 mg/Total Parenteral Nutrition/Amino Acids/Dextrose/ Fat Emulsion Intravenous 1,992 ml @ 83 mls/hr TPN CONT IV Last administered on 12/26/18at 21:53; Start 12/26/18 at 22:00; Stop 12/27/18 at 21:59; Status DC Heparin Sodium/ Dextrose 500 ml @ 18.72 mls/ hr CONT PRN IV PER PROTOCOL Last administered on 12/28/18at 10:22; Start 12/26/18 at 14:45 Heparin Sodium (Porcine) (Heparin Sodium) 1,950 unit PRN Q6HRS PRN IV FOR UFH LEVEL LESS THAN 0.2 Last administered on 12/27/18at 21:23; Start 12/26/18 at 14:45 Pantoprazole Sodium (PROTONIX VIAL for IV PUSH) 40 mg BID IVP Last administered on 12/28/18at 08:57; Start 12/26/18 at 21:00 Amiodarone HCl 450 mg/Dextrose 259 ml @ 17 mls/hr CONT PRN IV SEE I/O RECORD Last administered on 12/27/18at 19:19; Start 12/27/18 at 02:00 Potassium Acetate 85 meq/Potassium Phosphate 17 mmol/ Magnesium Sulfate 10 meq/Calcium Gluconate 10 meq/ Multivitamins 10 ml/Chromium/ Copper/Manganese/ Seleni/Zn 1 ml/ Thiamine HCl 100 mg/Folic Acid 1 mg/Total Parenteral Nutrition/Amino Acids/Dextrose/ Fat Emulsion Intravenous 1,992 ml @ 83 mls/hr TPN CONT IV Last administered on 12/27/18at 21:33; Start 12/27/18 at 22:00; Stop 12/28/18 at 21:59 Potassium Chloride/Water 100 ml @ 100 mls/hr Q1H IV Last administered on 12/28/18at 10:21; Start 12/28/18 at 09:00; Stop 12/28/18 at 10:59; Status DC Potassium Chloride/Water 50 ml @ 50 mls/hr DAILY IV ; Start 12/28/18 at 09:00; Status UNV Active Scripts Active Reported Lorazepam 1 Mg Tablet 1 Tab PO BID Percocet 7.5-325 Mg Tablet (Oxycodone/Acetaminophen) 1 Each Tablet 1 Tab PO PRN Q6HRS PRN Coumadin (Warfarin Sodium) 5 Mg Tablet 1 Tab PO DAILY Lisinopril 20 Mg Tablet 1 Tab PO DAILY Vitals/I & O Vital Sign - Last 24 Hours 12/27/18 12/27/18 12/27/18 12/27/18 12:00 12:00 12:10 12:25 Pulse 97 88 Resp 16 B/P (MAP) 122/72 (89) 128/70 Pulse Ox 98 97 O2 Delivery Nasal Cannula Ventilator Nasal Cannula O2 Flow Rate 4.0 12/27/18 12/27/18 12/27/18 12/27/18 13:00 13:23 13:32 14:00 Pulse 98 88 102 Resp 16 16 B/P (MAP) 127/70 (89) 128/70 153/91 (111) Pulse Ox 98 97 98 O2 Delivery Ventilator Ventilator O2 Flow Rate 4.0 12/27/18 12/27/18 12/27/18 12/27/18 14:39 15:00 15:20 16:00 Pulse 99 Resp 16 B/P (MAP) 138/75 (96) Pulse Ox 97 98 96 O2 Delivery Nasal Cannula Ventilator Room Air Nasal Cannula O2 Flow Rate 4.0 12/27/18 12/27/18 12/27/18 12/27/18 16:00 17:00 18:00 18:11 Temp 98.6 98.6 98.6 98.6 Pulse 97 97 97 97 Resp 16 B/P (MAP) 122/72 (89) 122/72 (89) 150/80 132/74 (93) Pulse Ox 98 98 98 O2 Delivery Ventilator Nasal Cannula Nasal Cannula O2 Flow Rate 4.0 4.0 12/27/18 12/27/18 12/27/18 12/27/18 19:00 19:12 20:00 20:00 Temp 98.8 98.8 Pulse 93 110 B/P (MAP) 162/86 (111) 166/86 (112) Pulse Ox 97 96 97 O2 Delivery Nasal Cannula Room Air Nasal Cannula Nasal Cannula O2 Flow Rate 4.0 2.0 2.0 12/27/18 12/27/18 12/27/18 12/27/18 21:00 21:32 22:00 23:00 Pulse 106 103 102 106 B/P (MAP) 167/82 (110) 167/82 178/82 (114) 182/89 (120) Pulse Ox 97 98 96 O2 Delivery Nasal Cannula Nasal Cannula Nasal Cannula O2 Flow Rate 2.0 2.0 2.0 12/27/18 12/27/18 12/28/18 12/28/18 23:27 23:30 00:00 00:00 Temp 98.9 98.9 Pulse 106 118 Resp 30 32 B/P (MAP) 182/89 172/77 (108) Pulse Ox 95 95 95 O2 Delivery Room Air Room Air 12/28/18 12/28/18 12/28/18 12/28/18 00:00 01:00 02:00 03:00 Pulse 112 94 106 B/P (MAP) 145/71 (95) 137/74 (95) 145/78 (100) Pulse Ox 94 95 95 O2 Delivery Room Air Room Air Room Air Room Air 12/28/18 12/28/18 12/28/18 12/28/18 04:00 04:00 05:00 05:36 Temp 98.7 98.7 Pulse 111 109 107 B/P (MAP) 170/76 (107) 173/81 (111) 173/81 Pulse Ox 95 95 O2 Delivery Room Air Room Air Room Air 12/28/18 12/28/18 12/28/18 12/28/18 05:36 06:00 07:00 08:00 Temp 99.8 99.8 Pulse 106 111 110 96 Resp 31 31 B/P (MAP) 173/81 161/79 (106) 129/74 (92) 157/85 (109) Pulse Ox 95 96 97 O2 Delivery Room Air Nasal Cannula Nasal Cannula 12/28/18 12/28/18 12/28/18 12/28/18 08:00 08:28 09:00 10:00 Pulse 95 96 Resp 31 30 B/P (MAP) 133/70 (91) 158/83 (108) Pulse Ox 97 97 96 O2 Delivery Room Air Room Air Nasal Cannula Nasal Cannula Intake and Output 12/27/18 12/27/18 12/28/18 15:00 23:00 07:00 Intake Total 0 ml 0 ml Output Total 1050 ml 1225 ml 825 ml Balance -1050 ml -1225 ml -825 ml DESTINI GEIGER MD Dec 28, 2018 11:20
--- NOTE | 2018-12-28 13:44 | PDOC ---
G I PROGRESS NOTE Reason for Follow-up Acute glood loss anemia/DVT/PE Subjective More alert but still confused Physical Exam Lungs decreased BS CV S1 S2 II/ JUAN CARLOS ABD +BS soft, nontender Review of Relevant I have reviewed the following items robert (where applicable) has been applied. Labs Laboratory Tests Test 12/26/18 14:15 12/26/18 21:30 12/27/18 04:50 12/27/18 09:15 White Blood Count 8.3 x10^3/uL (4.0-11.0) 10.8 x10^3/uL (4.0-11.0) Red Blood Count 2.86 x10^6/uL (4.30-5.70) 3.57 x10^6/uL (4.30-5.70) Hemoglobin 8.7 g/dL (13.0-17.5) 10.6 g/dL (13.0-17.5) Hematocrit 25.7 % (39.0-53.0) 31.1 % (39.0-53.0) Mean Corpuscular Volume 90 fL (79-100) 87 fL (79-100) Mean Corpuscular Hemoglobin 31 pg (25-35) 30 pg (25-35) Mean Corpuscular Hemoglobin Concent 34 g/dL (31-37) 34 g/dL (31-37) Red Cell Distribution Width 17.4 % (11.5-14.5) 17.1 % (11.5-14.5) Platelet Count 176 x10^3/uL (140-400) 240 x10^3/uL (140-400) Heparin Anti-Xa Act, Unfractionated < 0.10 IU/mL (0.30-0.70) 0.18 IU/mL (0.30-0.70) Prothrombin Time 15.9 SEC (11.7-14.0) Prothromb Time International Ratio 1.3 (0.8-1.1) Sodium Level 150 mmol/L (136-145) Potassium Level 3.6 mmol/L (3.5-5.1) Chloride Level 114 mmol/L (98-107) Carbon Dioxide Level 28 mmol/L (21-32) Anion Gap 8 (6-14) Blood Urea Nitrogen 19 mg/dL (8-26) Creatinine 0.9 mg/dL (0.7-1.3) Estimated GFR (Cockcroft-Gault) 87.0 Glucose Level 146 mg/dL (70-99) Calcium Level 8.4 mg/dL (8.5-10.1) Phosphorus Level 2.8 mg/dL (2.6-4.7) Magnesium Level 1.9 mg/dL (1.8-2.4) O2 Saturation 97 % (92-99) Arterial Blood pH 7.47 (7.35-7.45) Arterial Blood pCO2 at Patient Temp 34 mmHg (35-46) Arterial Blood pO2 at Patient Temp 94 mmHg (75-108) Arterial Blood HCO3 24 mmol/L (21-28) Arterial Blood Base Excess 1 mmol/L (-3-3) FiO2 35 Test 12/27/18 14:30 12/27/18 20:30 12/28/18 02:52 12/28/18 03:00 Heparin Anti-Xa Act, Unfractionated > 1.10 IU/mL (0.30-0.70) 0.14 IU/mL (0.30-0.70) 0.35 IU/mL (0.30-0.70) Glucose (Fingerstick) 158 mg/dL (70-99) Sodium Level 145 mmol/L (136-145) Potassium Level 3.3 mmol/L (3.5-5.1) Chloride Level 111 mmol/L (98-107) Carbon Dioxide Level 26 mmol/L (21-32) Anion Gap 8 (6-14) Blood Urea Nitrogen 18 mg/dL (8-26) Creatinine 0.8 mg/dL (0.7-1.3) Estimated GFR (Cockcroft-Gault) 99.6 Glucose Level 172 mg/dL (70-99) Calcium Level 8.3 mg/dL (8.5-10.1) Phosphorus Level 2.6 mg/dL (2.6-4.7) Magnesium Level 1.8 mg/dL (1.8-2.4) Test 12/28/18 09:45 Heparin Anti-Xa Act, Unfractionated 0.90 IU/mL (0.30-0.70) Laboratory Tests Test 12/27/18 14:30 12/27/18 20:30 12/28/18 02:52 12/28/18 03:00 Heparin Anti-Xa Act, Unfractionated > 1.10 IU/mL (0.30-0.70) 0.14 IU/mL (0.30-0.70) 0.35 IU/mL (0.30-0.70) Glucose (Fingerstick) 158 mg/dL (70-99) Sodium Level 145 mmol/L (136-145) Potassium Level 3.3 mmol/L (3.5-5.1) Chloride Level 111 mmol/L (98-107) Carbon Dioxide Level 26 mmol/L (21-32) Anion Gap 8 (6-14) Blood Urea Nitrogen 18 mg/dL (8-26) Creatinine 0.8 mg/dL (0.7-1.3) Estimated GFR (Cockcroft-Gault) 99.6 Glucose Level 172 mg/dL (70-99) Calcium Level 8.3 mg/dL (8.5-10.1) Phosphorus Level 2.6 mg/dL (2.6-4.7) Magnesium Level 1.8 mg/dL (1.8-2.4) Test 12/28/18 09:45 Heparin Anti-Xa Act, Unfractionated 0.90 IU/mL (0.30-0.70) Microbiology 12/24/18 Blood Culture - Preliminary, Resulted NO GROWTH AFTER 4 DAYS 12/20/18 Urine Culture - Final, Complete 12/20/18 Urine Culture Result 1 (AMARA) - Final, Complete Medications Current Medications Fentanyl Citrate (Fentanyl 2ml Vial) 50 mcg 1X ONCE IV Last administered on 12/10/18 20:03; Start 12/10/18 at 19:15; Stop 12/10/18 at 19:16; Status DC Iohexol (Omnipaque 300 Mg/ml) 75 ml 1X ONCE IV Last administered on 12/10/18at 19:43; Start 12/10/18 at 19:15; Stop 12/10/18 at 19:16; Status DC Sodium Chloride 1,000 ml @ 1,000 mls/hr 1X ONCE IV Last administered on 12/10/18at 19:45; Start 12/10/18 at 19:45; Stop 12/10/18 at 20:44; Status DC Morphine Sulfate (Morphine Sulfate) 2 mg PRN Q2HR PRN IV PAIN Last administered on 12/11/18at 12:03; Start 12/10/18 at 20:15; Stop 12/11/18 at 20:14; Status DC Sodium Chloride 1,000 ml @ 100 mls/hr Q10H IV Last administered on 12/11/18at 08:10; Start 12/10/18 at 20:07; Stop 12/11/18 at 12:21; Status DC Diphtheria/ Tetanus/Acell Pertussis (Boostrix) 0.5 ml ONCE ONCE VAX IM Last administered on 12/10/18at 21:07; Start 12/10/18 at 20:15; Stop 12/10/18 at 20:16; Status DC Ondansetron HCl (Zofran) 4 mg PRN Q6HRS PRN IV NAUSEA/VOMITING 1ST CHOICE Last administered on 12/21/18 03:27; Start 12/11/18 at 05:30 Multivitamins (Thera M Plus) 1 tab DAILY PO Last administered on 12/12/18 08:14; Start 12/11/18 at 09:00; Stop 12/13/18 at 11:25; Status DC Folic Acid (Folic Acid) 1 mg DAILY PO Last administered on 12/12/18 08:14; St art 12/11/18 at 09:00; Stop 12/13/18 at 11:25; Status DC Chlordiazepoxide (Librium) 50 mg PRN Q1HR PRN PO For CIWA 8-14 2ND CHOICE Last administered on 12/18/18at 18:03; Start 12/11/18 at 05:30 Chlordiazepoxide (Librium) 100 mg PRN Q1HR PRN PO For CIWA 15+ 2ND CHOICE Last administered on 12/13/18at 01:11; Start 12/11/18 at 05:30 Lorazepam (Ativan) 4 mg PRN Q1HR PRN PO For CIWA 8-14 Last administered on 12/13/18at 02:48; Start 12/11/18 at 05:30 Lorazepam (Ativan) 8 mg PRN Q1HR PRN PO For CIWA 15 or greater; Start 12/11/18 at 05:30 Lorazepam (Ativan Inj) 2 mg PRN Q1HR PRN IV For CIWA 8-14 Last administered on 12/28/18at 09:09; Start 12/11/18 at 05:30 Lorazepam (Ativan Inj) 4 mg PRN Q1HR PRN IV For CIWA 15 or greater Last administered on 12/26/18 22:11; Start 12/11/18 at 05:30 Haloperidol Lactate (Haldol Inj) 5 mg PRN Q4HRS PRN IVP Hallucinatns,Confusn,Delirium Last administered on 12/27/18 19:18; Start 12/11/18 at 05:30 Diphenhydramine HCl (Benadryl) 25 mg PRN Q15MIN PRN IVP EPS symptoms 2'Haldol admin Last administered on 12/27/18 16:58; Start 12/11/18 at 05:30 Clonidine HCl (Catapres) 0.1 mg PRN Q1HR PRN PO SBP > 180 or DBP > 100, MRX3; Start 12/11/18 at 05:30 Sodium Chloride 1,000 ml @ 60 mls/hr [id number] IV Last administered on 12/21/18 07:26; Start 12/11/18 at 13:00; Stop 12/22/18 at 14:53; Status DC Sodium Chloride 150 ml @ 50 mls/hr 1X ONCE IV Last administered on 12/11/18at 13:48; Start 12/11/18 at 13:00; Stop 12/11/18 at 15:59; Status DC Lisinopril (Prinivil) 20 mg DAILY PO Last administered on 12/19/18 08:00; Start 12/11/18 at 14:00; Stop 12/21/18 at 15:19; Status DC Oxycodone/ Acetaminophen (Percocet 7.5/ 325) 1 tab PRN Q6HRS PRN PO MODERATE TO SEVERE PAIN Last administered on 12/19/18 06:19; Start 12/11/18 at 13:30 Calcium Carbonate/ Glycine (Oscal) 500 mg TIDAFTMEAL PO Last administered on 12/19/18 17:22; Start 12/12/18 at 13:00 Ziprasidone (Geodon Im) 20 mg 1X ONCE IM ; Start 12/13/18 at 05:00; Stop 12/13/18 at 18:51; Status DC Lorazepam 100 mg/ Sodium Chloride 100 ml @ 2 mls/hr CONT PRN IV SEDATION Last administered on 9/28/19at 19:56; Start 12/13/18 at 07:00; Stop 12/18/18 at 16:33; Status DC Olanzapine (ZyPREXA IM) 10 mg PRN Q8HRS PRN IM AGITATION Last administered on 12/19/18at 00:05; Start 12/13/18 at 08:30 Olanzapine (ZyPREXA IM) 10 mg STK-MED ONCE IM ; Start 12/13/18 at 08:37; Stop 12/13/18 at 08:38; Status DC Fentanyl Citrate (Fentanyl 2ml Vial) 75 mcg 1X ONCE IV ; Start 12/13/18 at 09:45; Stop 12/13/18 at 19:20; Status DC Fentanyl Citrate (Fentanyl 2ml Vial) 100 mcg STK-MED ONCE .ROUTE ; Start 12/13/18 at 09:47; Stop 12/13/18 at 09:48; Status DC Fentanyl Citrate (Fentanyl 2ml Vial) 75 mcg PRN Q30MIN PRN IV PAIN Last administered on 12/27/18at 23:30; Start 12/13/18 at 10:00 Multivitamins 10 ml/Thiamine HCl 100 mg/Folic Acid 1 mg/Sodium Chloride 1,011.2 ml @ 100 mls/ hr DAILY IV Last administered on 12/18/18at 08:55; Start 12/14/18 at 12:00; Stop 12/18/18 at 19:07; Status DC Enoxaparin Sodium (Lovenox 80mg Syringe) 80 mg Q12HR SQ Last administered on 12/21/18at 07:50; Start 12/13/18 at 14:30; Stop 12/21/18 at 12:56; Status DC Warfarin Sodium (Coumadin Per Pharmacy) 1 each PRN DAILY PRN MC SEE COMMENTS Last administered on 12/24/18at 11:27; Start 12/13/18 at 14:15; Stop 12/24/18 at 16:10; Status DC Warfarin Sodium (Coumadin) 7.5 mg 1X WARF ONCE PO ; Start 12/13/18 at 16:00; Stop 12/13/18 at 16:01; Status DC Nicotine (Nicoderm Cq 21mg) 1 patch DAILY TD Last administered on 12/28/18at 08:57; Start 12/14/18 at 09:00 Dexmedetomidine HCl 400 mcg/ Sodium Chloride 100 ml @ 0 mls/hr CONT PRN IV PER PROTOCOL Last administered on 12/18/18at 00:12; Start 12/14/18 at 01:45; Stop 12/18/18 at 16:33; Status DC Sodium Chloride 500 ml @ 500 mls/hr 1X PRN PRN IV SEE COMMENTS; Start 12/14/18 at 01:45; Stop 12/20/18 at 11:56; Status DC Atropine Sulfate (ATROPINE 0.5mg SYRINGE) 0.5 mg PRN Q5MIN PRN IV SEE COMMENTS; Start 12/14/18 at 01:45; Stop 12/20/18 at 11:55; Status DC Nicotine (Nicoderm Cq 21mg) 1 patch STK-MED ONCE TD ; Start 12/14/18 at 01:57; Stop 12/14/18 at 01:57; Status DC Lorazepam (Ativan) 1 mg BID PO Last administered on 12/19/18at 08:00; Start 12/14/18 at 09:00 Warfarin Sodium (Coumadin) 5 mg DAILY16 PO ; Start 12/14/18 at 16:00; Stop 12/14/18 at 09:21; Status DC Warfarin Sodium (Coumadin) 7.5 mg 1X WARF ONCE PO ; Start 12/14/18 at 16:00; Stop 12/14/18 at 16:01; Status DC Enalaprilat (Vasotec Inj) 1.25 mg Q8HRS IVP Last administered on 12/28/18at 05:36; Start 12/14/18 at 15:00 Nicardipine HCl 50 mg/Sodium Chloride 250 ml @ 25 mls/hr CONT PRN IV SEE I/O RECORD Last administered on 12/16/18at 09:58; Start 12/14/18 at 17:45; Stop 12/18/18 at 16:33; Status DC Nicardipine HCl 50 mg/Sodium Chloride 250 ml @ 25 mls/hr CONT PRN IV SEE I/O RECORD; Start 12/14/18 at 18:00; Status UNV Warfarin Sodium (Coumadin) 7.5 mg 1X WARF ONCE PO ; Start 12/15/18 at 16:00; Stop 12/15/18 at 16:01; Status DC Warfarin Sodium (Coumadin - No Dose Today) 1 each 1X WARF ONCE MC ; Start 12/16/18 at 16:00; Stop 12/16/18 at 16:01; Status DC Warfarin Sodium (Coumadin) 7.5 mg 1X WARF ONCE PO Last administered on 12/18/18at 08:54; Start 12/17/18 at 16:00; Stop 12/17/18 at 16:01; Status DC Ceftriaxone Sodium (Rocephin) 1 gm Q24H IVP Last administered on 12/20/18 12:08; Start 12/18/18 at 12:30; Stop 12/20/18 at 15:14; Status DC Metoprolol Tartrate (Lopressor) 25 mg BID PO Last administered on 12/19/18 08:01; Start 12/18/18 at 12:30 Acetaminophen/ Codeine Phosphate (Tylenol #3) 1 tab PRN Q6HRS PRN PO PAIN MILD TO MOD; Start 12/18/18 at 12:00; Stop 12/18/18 at 12:55; Status DC Lactobacillus Rhamnosus (Culturelle) 1 cap BID PO Last administered on 12/19/18at 08:00; Start 12/18/18 at 21:00; Stop 12/24/18 at 11:17; Status DC Acetaminophen (Tylenol) 650 mg PRN Q6HRS PRN PO FEVER Last administered on 12/19/18 17:23; Start 12/18/18 at 13:00 Warfarin Sodium (Coumadin) 7.5 mg 1X WARF ONCE PO Last administered on 12/18/18 18:03; Start 12/18/18 at 16:00; Stop 12/18/18 at 16:11; Status DC Albuterol/ Ipratropium (Duoneb) 3 ml 1X ONCE NEB Last administered on 12/19/18 07:15; Start 12/19/18 at 07:15; Stop 12/19/18 at 07:16; Status DC Ziprasidone (Geodon Im) 10 mg 1X ONCE IM Last administered on 12/19/18 07:42; Start 12/19/18 at 07:15; Stop 12/19/18 at 07:16; Status DC Warfarin Sodium (Coumadin) 7.5 mg 1X WARF ONCE PO Last administered on 12/19/18 17:23; Start 12/19/18 at 16:00; Stop 12/19/18 at 16:01; Status DC Potassium Chloride (Klor-Con) 40 meq 1X ONCE PO Last administered on 12/19/18at 16:12; Start 12/19/18 at 14:00; Stop 12/19/18 at 14:01; Status DC Potassium Chloride (Klor-Con) 20 meq DAILYWBKFT PO ; Start 12/20/18 at 08:00; Stop 12/28/18 at 08:35; Status DC Doxycycline Hyclate (Vibra-Tab) 100 mg BID PO Last administered on 12/19/18at 17:22; Start 12/19/18 at 17:30; Stop 12/19/18 at 17:57; Status DC Doxycycline Hyclate 100 mg/ Dextrose 100 ml @ 50 mls/hr Q12HR IV Last administered on 12/23/18at 22:17; Start 12/19/18 at 21:00; Stop 12/24/18 at 10:15; Status DC Metoprolol Tartrate (Lopressor Vial) 5 mg PRN Q6HRS PRN IVP HYPERTENSION Last administered on 12/24/18at 07:22; Start 12/19/18 at 18:00 Scopolamine (Transderm-Scop) 1 patch Q3DAYS TD Last administered on 12/26/18at 09:29; Start 12/20/18 at 09:00 Potassium Chloride/Water 100 ml @ 100 mls/hr Q1H IV Last administered on 12/20/18at 10:36; Start 12/20/18 at 06:00; Stop 12/20/18 at 09:59; Status DC Potassium Chloride (Klor-Con) 40 meq 1X ONCE PO ; Start 12/20/18 at 08:00; Stop 12/20/18 at 08:01; Status DC Acetaminophen (Tylenol Supp) 650 mg PRN Q6HRS PRN MS MILD PAIN / TEMP Last administered on 12/28/18at 09:15; Start 12/20/18 at 07:15 Warfarin Sodium (Coumadin) 7.5 mg 1X WARF ONCE PO ; Start 12/20/18 at 16:00; Stop 12/20/18 at 16:01; Status DC Hydralazine HCl (Apresoline Inj) 10 mg PRN Q4HRS PRN IVP ELEVATED BP, SEE COMMENTS Last administered on 12/22/18at 11:07; Start 12/20/18 at 14:30 Potassium Chloride (Klor-Con) 40 meq 1X ONCE PO ; Start 12/20/18 at 14:30; Stop 12/20/18 at 14:41; Status DC Potassium Chloride (Klor-Con) 20 meq DAILYWBKFT PO ; Start 12/21/18 at 08:00; Stop 12/25/18 at 11:25; Status DC Albuterol/ Ipratropium (Duoneb) 3 ml RTQID NEB Last administered on 12/28/18at 12:06; Start 12/20/18 at 16:00 Piperacillin Sod/ Tazobactam Sod 3.375 gm/Sodium Chloride 50 ml @ 100 mls/hr Q6HRS IV Last administered on 12/24/18at 05:09; Start 12/20/18 at 16:00; Stop 12/24/18 at 10:15; Status DC Amino Acids/ Glycerin/ Electrolytes 1,000 ml @ 75 mls/hr [id number] IV Last administered on 12/25/18at 09:05; Start 12/21/18 at 13:00; Stop 12/25/18 at 21:59; Status DC Warfarin Sodium (Coumadin) 1 mg 1X WARF ONCE PO ; Start 12/21/18 at 16:00; Stop 12/21/18 at 16:01; Status DC Sodium Chloride 1,000 ml @ 75 mls/hr 1X ONCE IV Last administered on 12/21at 13:49; Start 12/21/18 at 13:15; Stop 12/22/18 at 02:34; Status DC Potassium Chloride/Water 100 ml @ 100 mls/hr Q1H IV Last administered on 12/22/18at 11:03; Start 12/22/18 at 06:00; Stop 12/22/18 at 09:59; Status DC Sodium Chloride 1,000 ml @ 75 mls/hr 1X ONCE IV Last administered on 12/22/18at 14:49; Start 12/22/18 at 14:30; Stop 12/23/18 at 03:49; Status DC Potassium Chloride 20 meq/ Sodium Chloride 1,010 ml @ 75 mls/hr 1X ONCE IV Last administered on 12/22/18at 17:51; Start 12/22/18 at 16:00; Stop 12/23/18 at 05:27; Status DC Hydralazine HCl (Apresoline Inj) 10 mg Q6HRS IVP Last administered on 12/28/18at 11:41; Start 12/22/18 at 18:00 Potassium Chloride/Water 100 ml @ 100 mls/hr Q1H IV Last administered on 12/23/18at 14:01; Start 12/23/18 at 06:00; Stop 12/23/18 at 09:59; Status DC Potassium Chloride/Water 50 ml @ 50 mls/hr Q1H IV ; Start 12/23/18 at 11:15; Stop 12/23/18 at 13:14; Status UNV Potassium Chloride/Water 100 ml @ 100 mls/hr Q1H IV ; Start 12/23/18 at 11:30; Stop 12/23/18 at 13:04; Status DC Warfarin Sodium (Coumadin - No Dose Today) 1 each 1X WARF ONCE MC Last administered on 12/23/18at 16:00; Start 12/23/18 at 16:00; Stop 12/23/18 at 16:01; Status DC Pantoprazole Sodium (PROTONIX VIAL for IV PUSH) 40 mg DAILYAC IVP Last administered on 12/23/18at 15:21; Start 12/23/18 at 15:00; Stop 12/24/18 at 10:43; Status DC Cefepime HCl (Maxipime) 2 gm Q8HRS IVP Last administered on 12/28/18at 05:35; Start 12/24/18 at 10:00 Metronidazole 100 ml @ 100 mls/hr Q8HRS IV Last administered on 12/28/18at 05:34; Start 12/24/18 at 10:00 Daptomycin 460 mg/ Sodium Chloride 50 ml @ 100 mls/hr Q24H IV Last administer ed on 12/27/18at 10:58; Start 12/24/18 at 11:00; Stop 12/28/18 at 11:10; Status DC Micafungin Sodium 100 mg/Dextrose 100 ml @ 100 mls/hr Q24H IV Last administered on 12/28/18at 08:58; Start 12/24/18 at 12:00; Stop 12/28/18 at 11:10; Status DC Pantoprazole Sodium 80 mg/ Sodium Chloride 100 ml @ 10 mls/hr Q10H IV Last administered on 12/26/18at 13:23; Start 12/24/18 at 11:00; Stop 12/26/18 at 15:12; Status DC Lorazepam (Ativan) 1 mg PRN Q6HRS PRN PO ANXIETY / AGITATION 1ST CHOICE; Start 12/24/18 at 10:45 Ondansetron HCl (Zofran) 4 mg PRN Q6HRS PRN IV NAUSEA/VOMITING; Start 12/24/18 at 10:45; Stop 12/24/18 at 10:52; Status DC Info (Icu Electrolyte Protocol) 1 ea DAILY MC Last administered on 12/25/18at 08:50; Start 12/25/18 at 09:00 Sodium Chloride (Normal Saline Flush) 3 ml QSHIFT PRN IV AFTER MEDS AND BLOOD DRAWS; Start 12/24/18 at 10:45 Sodium Chloride 1,000 ml @ 2,130 mls/hr Q29M IV Last administered on 12/24/18at 12:13; Start 12/24/18 at 10:50; Stop 12/24/18 at 11:50; Status DC Sodium Chloride 500 ml @ 1,000 mls/hr PRN Q30MIN PRN IV SEE COMMENTS; Start 12/24/18 at 11:00 Norepinephrine Bitartrate 250 ml @ 0 mls/hr CONT PRN IV SEE COMMENTS Last administered on 12/24/18at 20:22; Start 12/24/18 at 11:00; Stop 12/27/18 at 09:21; Status DC Dobutamine HCl/ Dextrose 250 ml @ 0 mls/hr CONT PRN IV SEE COMMENTS; Start 12/24/18 at 11:00 Sodium Bicarbonate (Sodium Bicarb Adult 8.4% Syr) 100 meq 1X ONCE IV Last administered on 12/24/18at 11:16; Start 12/24/18 at 11:15; Stop 12/24/18 at 11:16; Status DC Phytonadione (Vitamin K Ampule) 5 mg 1X ONCE SQ Last administered on 12/24/18at 12:24; Start 12/24/18 at 11:15; Stop 12/24/18 at 11:22; Status DC Succinylcholine Chloride (Anectine) 200 mg STK-MED ONCE .ROUTE ; Start 12/24/18 at 11:20; Stop 12/24/18 at 11:21; Status DC Midazolam HCl (Versed) 5 mg STK-MED ONCE .ROUTE ; Start 12/24/18 at 11:21; Stop 12/24/18 at 11:21; Status DC Warfarin Sodium (Coumadin - No Dose Today) 1 each 1X WARF ONCE MC ; Start 12/24/18 at 16:00; Stop 12/24/18 at 22:25; Status DC Atropine Sulfate (ATROPINE 1mg SYRINGE) 1 mg STK-MED ONCE .ROUTE ; Start 12/24/18 at 11:30; Stop 12/24/18 at 11:30; Status DC Epinephrine HCl (Adrenalin) 1 mg STK-MED ONCE .ROUTE ; Start 12/24/18 at 11:30; Stop 12/24/18 at 11:30; Status DC Succinylcholine Chloride (Anectine) 60 mg 1X ONCE IV Last administered on 12/24/18at 12:04; Start 12/24/18 at 11:45; Stop 12/24/18 at 11:46; Status DC Midazolam HCl (Versed) 2 mg 1X ONCE IV Last administered on 12/24/18at 11:30; Start 12/24/18 at 11:45; Stop 12/24/18 at 11:46; Status DC Epinephrine HCl (EPINEPHrine SYRINGE) 1 mg 1X ONCE IV ; Start 12/24/18 at 11:45; Stop 12/24/18 at 11:46; Status DC Sodium Chloride 1,000 ml @ 1,000 mls/hr 1X ONCE IV ; Start 12/24/18 at 11:45; Stop 12/24/18 at 12:44; Status DC Midazolam HCl 100 ml @ 5 mls/hr CONT PRN IV SEE I/O RECORD Last administered on 12/25/18at 23:40; Start 12/24/18 at 12:00; Stop 12/27/18 at 09:21; Status DC Fentanyl Citrate 30 ml @ 0 mls/hr CONT PRN IV SEE PROTOCOL Last administered on 12/26/18at 05:26; Start 12/24/18 at 12:00 Midazolam HCl (Versed) 2 mg 1X ONCE IV ; Start 12/24/18 at 12:15; Stop 12/24/18 at 12:16; Status DC Metoclopramide HCl (Reglan Vial) 10 mg 1X ONCE IVP Last administered on 12/24/18at 15:00; Start 12/24/18 at 12:45; Stop 12/24/18 at 12:46; Status DC Vasopressin 40 unit/Dextrose 102 ml @ 6 mls/hr CONT PRN IV SEE I/O RECORD Last administered on 12/26/18at 12:38; Start 12/24/18 at 13:00; Stop 12/27/18 at 09:21; Status DC Albumin Human 500 ml @ As Directed STK-MED ONCE IV ; Start 12/24/18 at 14:37; Stop 12/24/18 at 14:37; Status DC Albumin Human 500 ml @ 125 mls/hr 1X ONCE IV Last administered on 12/24/18at 14:39; Start 12/24/18 at 14:45; Stop 12/24/18 at 18:44; Status DC Digoxin (Lanoxin) 500 mcg 1X ONCE IV Last administered on 12/24/18at 15:30; Start 12/24/18 at 15:30; Stop 12/24/18 at 15:31; Status DC Digoxin (Lanoxin) 500 mcg STK-MED ONCE .ROUTE ; Start 12/24/18 at 15:07; Stop 12/24/18 at 15:08; Status DC Phytonadione (Vitamin K Ampule) 10 mg 1X ONCE SQ Last administered on 12/24/18at 17:36; Start 12/24/18 at 15:45; Stop 12/24/18 at 15:49; Status DC Amiodarone HCl 150 mg/Dextrose 103 ml @ 618 mls/hr 1X ONCE IV Last administered on 12/24/18at 17:09; Start 12/24/18 at 16:00; Stop 12/24/18 at 16:09; Status DC Amiodarone HCl 900 mg/Dextrose 518 ml @ 0 mls/hr CONT PRN IV SEE I/O RECORD Last administered on 12/24/18at 17:55; Start 12/24/18 at 16:00; Stop 12/24/18 at 17:55; Status DC Phytonadione (Vitamin K Ampule) 10 mg 1X ONCE SQ ; Start 12/24/18 at 17:00; Stop 12/24/18 at 17:01; Status DC Potassium Chloride/Water 50 ml @ 50 mls/hr Q1H IV Last administered on 12/25/18at 12:37; Start 12/25/18 at 09:00; Stop 12/25/18 at 12:59; Status DC Potassium Chloride/Water 50 ml @ 0 mls/hr Q1H IV ; Start 12/25/18 at 08:30; Stop 12/25/18 at 11:31; Status UNV Info (Tpn Per Pharmacy) 1 each PRN DAILY PRN MC SEE COMMENTS Last administered on 12/27/18at 15:18; Start 12/25/18 at 09:45 Sodium Chloride 50 meq/Potassium Acetate 70 meq/ Potassium Phosphate 13.6 mmol/Magnesium Sulfate 10 meq/ Calcium Gluconate 10 meq/ Multivitamins 10 ml/Chromium/ Copper/Manganese/ Seleni/Zn 1 ml/ Total Parenteral Nutrition/Amino Acids/Dextrose/ Fat Emulsion Intravenous 1,512 ml @ 63 mls/hr TPN CONT IV Last administered on 12/25/18at 21:37; Start 12/25/18 at 22:00; Stop 12/26/18 at 21:59; Status DC Amiodarone HCl 900 mg/Dextrose 518 ml @ 17 mls/hr CONT PRN IV .; Start 12/25/18 at 20:00; Status Cancel Amiodarone HCl 900 mg/Dextrose 518 ml @ 0 mls/hr CONT PRN IV SEE I/O RECORD Last administered on 12/25/18at 20:15; Start 12/25/18 at 20:15; Stop 12/25/18 at 20:15; Status DC Aspirin (Aspirin Rectal Supp) 300 mg DAILY MS Last administered on 12/28/18at 09:20; Start 12/26/18 at 11:00 Amiodarone HCl 900 mg/Dextrose 518 ml @ 33 mls/hr CONT PRN IV SEE I/O RECORD; Start 12/26/18 at 12:45; Stop 12/27/18 at 01:06; Status DC Potassium Acetate 70 meq/Potassium Phosphate 17 mmol/ Magnesium Sulfate 10 meq/Calcium Gluconate 10 meq/ Multivitamins 10 ml/Chromium/ Copper/Manganese/ Seleni/Zn 1 ml/ Thiamine HCl 100 mg/Folic Acid 1 mg/Total Parenteral Nutrition/Amino Acids/Dextrose/ Fat Emulsion Intravenous 1,992 ml @ 83 mls/hr TPN CONT IV Last administered on 12/26/18at 21:53; Start 12/26/18 at 22:00; Stop 12/27/18 at 21:59; Status DC Heparin Sodium/ Dextrose 500 ml @ 18.72 mls/ hr CONT PRN IV PER PROTOCOL Last administered on 12/28/18at 10:22; Start 12/26/18 at 14:45 Heparin Sodium (Porcine) (Heparin Sodium) 1,950 unit PRN Q6HRS PRN IV FOR UFH LEVEL LESS THAN 0.2 Last administered on 12/27/18at 21:23; Start 12/26/18 at 14:45 Pantoprazole Sodium (PROTONIX VIAL for IV PUSH) 40 mg BID IVP Last administered on 12/28/18 08:57; Start 12/26/18 at 21:00 Amiodarone HCl 450 mg/Dextrose 259 ml @ 17 mls/hr CONT PRN IV SEE I/O RECORD Last administered on 12/27/18at 19:19; Start 12/27/18 at 02:00 Potassium Acetate 85 meq/Potassium Phosphate 17 mmol/ Magnesium Sulfate 10 meq/Calcium Gluconate 10 meq/ Multivitamins 10 ml/Chromium/ Copper/Manganese/ Seleni/Zn 1 ml/ Thiamine HCl 100 mg/Folic Acid 1 mg/Total Parenteral Nutrition/Amino Acids/Dextrose/ Fat Emulsion Intravenous 1,992 ml @ 83 mls/hr TPN CONT IV Last administered on 12/27/18at 21:33; Start 12/27/18 at 22:00; Stop 12/28/18 at 21:59 Potassium Chloride/Water 100 ml @ 100 mls/hr Q1H IV Last administered on 12/28/18at 10:21; Start 12/28/18 at 09:00; Stop 12/28/18 at 10:59; Status DC Potassium Chloride/Water 50 ml @ 50 mls/hr DAILY IV ; Start 12/28/18 at 09:00; Status UNV Potassium Acetate 100 meq/Potassium Phosphate 20 mmol/ Magnesium Sulfate 13 meq/Calcium Gluconate 10 meq/ Multivitamins 10 ml/Chromium/ Copper/Manganese/ Seleni/Zn 1 ml/ Thiamine HCl 100 mg/Folic Acid 1 mg/Total Parenteral Nutrition/Amino Acids/Dextrose/ Fat Emulsion Intravenous 1,992 ml @ 83 mls/hr TPN CONT IV ; Start 12/28/18 at 22:00; Stop 12/29/18 at 21:59 Active Scripts Active Reported Lorazepam 1 Mg Tablet 1 Tab PO BID Percocet 7.5-325 Mg Tablet (Oxycodone/Acetaminophen) 1 Each Tablet 1 Tab PO PRN Q6HRS PRN Coumadin (Warfarin Sodium) 5 Mg Tablet 1 Tab PO DAILY Lisinopril 20 Mg Tablet 1 Tab PO DAILY Vitals/I & O Vital Sign - Last 24 Hours 12/27/18 12/27/18 12/27/18 12/27/18 14:00 14:39 15:00 15:20 Pulse 102 99 Resp 16 16 B/P (MAP) 153/91 (111) 138/75 (96) Pulse Ox 98 97 98 96 O2 Delivery Ventilator Nasal Cannula Ventilator Room Air O2 Flow Rate 4.0 12/27/18 12/27/18 12/27/18 12/27/18 16:00 16:00 17:00 18:00 Temp 98.6 98.6 Pulse 97 97 97 Resp 16 B/P (MAP) 122/72 (89) 122/72 (89) 150/80 Pulse Ox 98 98 O2 Delivery Nasal Cannula Ventilator Nasal Cannula O2 Flow Rate 4.0 12/27/18 12/27/18 12/27/18 12/27/18 18:11 19:00 19:12 20:00 Temp 98.6 98.8 98.6 98.8 Pulse 97 93 B/P (MAP) 132/74 (93) 162/86 (111) Pulse Ox 98 97 96 O2 Delivery Nasal Cannula Nasal Cannula Room Air Nasal Cannula O2 Flow Rate 4.0 4.0 2.0 12/27/18 12/27/18 12/27/18 12/27/18 20:00 21:00 21:32 22:00 Pulse 110 106 103 102 B/P (MAP) 166/86 (112) 167/82 (110) 167/82 178/82 (114) Pulse Ox 97 97 98 O2 Delivery Nasal Cannula Nasal Cannula Nasal Cannula O2 Flow Rate 2.0 2.0 2.0 12/27/18 12/27/18 12/27/18 12/28/18 23:00 23:27 23:30 00:00 Temp 98.9 98.9 Pulse 106 106 118 Resp 30 B/P (MAP) 182/89 (120) 182/89 172/77 (108) Pulse Ox 96 95 95 O2 Delivery Nasal Cannula Room Air Room Air O2 Flow Rate 2.0 12/28/18 12/28/18 12/28/18 12/28/18 00:00 00:00 01:00 02:00 Pulse 112 94 Resp 32 B/P (MAP) 145/71 (95) 137/74 (95) Pulse Ox 95 94 95 O2 Delivery Room Air Room Air Room Air 12/28/18 12/28/18 12/28/18 12/28/18 03:00 04:00 04:00 05:00 Temp 98.7 98.7 Pulse 106 111 109 B/P (MAP) 145/78 (100) 170/76 (107) 173/81 (111) Pulse Ox 95 95 95 O2 Delivery Room Air Room Air Room Air Room Air 12/28/18 12/28/18 12/28/18 12/28/18 05:36 05:36 06:00 07:00 Pulse 107 106 111 110 Resp 31 B/P (MAP) 173/81 173/81 161/79 (106) 129/74 (92) Pulse Ox 95 96 O2 Delivery Room Air Room Air 12/28/18 12/28/18 12/28/18 12/28/18 08:00 08:00 08:28 09:00 Temp 99.8 99.8 Pulse 96 95 Resp 31 31 B/P (MAP) 157/85 (109) 133/70 (91) Pulse Ox 97 97 97 O2 Delivery Room Air Room Air Room Air Room Air 12/28/18 12/28/18 12/28/18 12/28/18 10:00 11:00 11:41 12:00 Pulse 96 110 110 Resp 30 28 B/P (MAP) 158/83 (108) 160/77 (104) 160/77 Pulse Ox 96 95 O2 Delivery Room Air Room Air Room Air 12/28/18 12/28/18 12/28/18 12:00 12:06 13:00 Temp 98.5 98.5 Pulse 109 108 Resp 21 21 B/P (MAP) 148/72 (97) 161/79 (106) Pulse Ox 96 O2 Delivery Room Air Room Air Room Air Intake and Output 12/27/18 12/27/18 12/28/18 15:00 23:00 07:00 Intake Total 0 ml 0 ml Output Total 1050 ml 1225 ml 825 ml Balance -1050 ml -1225 ml -825 ml Problem List Problems Medical Problems: (1) Alcohol abuse Status: Acute (2) Closed head injury Status: Acute Assessment Acute blood loss anemia- with anticoagulation, Hg stable, speech path results with increased risk of aspiration noted, continue npo for now ALIZA KATHLEEN MD Dec 28, 2018 13:44
[2018-12-28] MEDS: TPN PER PHARMACY MC PRN (14:30)
--- NOTE | 2018-12-28 14:31 | NUR ---
Pharmacy TPN Dosing Note S: SHAW OG is a 58 year old M Currently receiving Central Continuous TPN started 12/25/18 B:Pertinent PMH: GI bleed, failed swallow study Height: 5 feet, 9 inches Weight: 78 kg Current diet: NPO LABS: Sodium: 145 Potassium: 3.3 Chloride: 111 Calcium: 8.3 Corrected Calcium: 9.74 Magnesium: 1.8 CO2: 26 SCr: 0.8 Glucose: 158, 172 Albumin: 2.2 AST: 519 ALT: 982 TPN FORMULA: TPN TYPE: Central Continuous AMINO ACIDS: 95 gm DEXTROSE: 250 gm LIPIDS: 20 gm POTASSIUM ACETATE: 100 mEq POTASSIUM PHOSPHATE: 20 mmol MAGNESIUM: 13 mEq CALCIUM: 10 mEq MULTIPLE VITAMIN: 10 ml TRACE ELEMENTS: 1 ml TPN PLAN: -Failed swallow eval, continue TPN. -Serum potassium low, give KCl 20 mEq IV. Increase KPhos to 20 mmol/day and KAC to 100 mEq/day. -Serum mag trending down, increase mag sulfate to 13 mEq/day. -CMP, mag, phos, triglycerides tomorrow per protocol. R: Continue TPN @ current rate and with above changes. Will monitor electrolytes, glucose, and tolerance to TPN. EVAN JOEL, [facility], 12/28/18 [id number]
--- NOTE | 2018-12-28 15:45 | NUR ---
Orders received to transfer pt to [facility]. Report called to Jorge. Pt transferred to 202 by bed. Belongings transferred with pt.
[2018-12-28] MEDS ORDERED: [UNRECOGNIZED DRUG - OTHER] IV SCH ×11 (22:00)
[2018-12-28] MEDS ORDERED: DEXTROSE 70% IV SCH ×11 (22:00)
[2018-12-28] MEDS ORDERED: TOTAL PARENTERAL NUTRITION IV SCH ×11 (22:00)
[2018-12-28] MEDS ORDERED: AMINO ACID IV SCH ×11 (22:00)
[2018-12-29] MEDS: hydrALAZINE 20 MG/ML VIAL. IVP SCH ×4 (01:12→18:00)
[2018-12-29 03:10] VITALS: BP 158/85
[2018-12-29 03:21] LABS: ALBUMIN 2.6 g/dL (3.4-5.0); ALBUMIN/GLOBULIN RATIO 0.9 (1.0-1.7); CALCIUM 8.2 mg/dL (8.5-10.1); CREATININE 0.8 mg/dL (0.7-1.3); GFR 99.6; MAGNESIUM 1.8 mg/dL (1.8-2.4); POTASSIUM 3.4 mmol/L (3.5-5.1); TOTAL BILIRUBIN 0.6 mg/dL (0.2-1.0); TOTAL PROTEIN 5.5 g/dL (6.4-8.2)
[2018-12-29] MEDS: HEPARIN for IV BOLUS 10,000 UNIT/10 ML VIAL. IV PRN ×2 (04:01→19:07)
[2018-12-29] MEDS: CEFEPIME HCL IV Push 2 GM VIAL. IVP SCH (05:51)
[2018-12-29] MEDS: ENALAPRILAT 1.25 MG/ML VIAL. IVP SCH ×3 (05:51→22:16)
[2018-12-29 07:00] VITALS: BP 142/65
[2018-12-29] MEDS: IPRATRPIUM/ALBUTEROL 0.5/2.5MG 3 ML NEBU. NEB SCH ×4 (07:51→19:21)
--- NOTE | 2018-12-29 07:56 | PDOC ---
Infectious Disease Note Subjective Subjective awake, pt cont to speak to him self and with some one without making sense ROS ROS no n/v/fever does have black liquid stool Vital Sign Vital Signs Vital Signs Date Time Temp Pulse Resp B/P (MAP) Pulse Ox O2 Delivery O2 Flow Rate FiO2 12/29/18 07:00 98.8 106 20 142/65 (90) 95 Room Air 98.8 Physical Exam PHYSICAL EXAM GENERAL: Propped up in seat resting quietly, HEENT: Oral cavity dry, poor dentition NECK: Supple. LUNGS: Clear anteriorly HEART: S1, S2. ABDOMEN: Obese, soft, no guarding, bowel sounds present. Rectal tube : Peng EXTREMITIES: No gross edema or cyanosis. Scabs left knee - no redness/warmth/swelling SKIN: Warm to touch. No signs of rash. some healing scraps/echymosis NEUROLOGIC: arouses, no response to questions RUE PICC - clean Labs Lab Laboratory Tests Test 12/28/18 09:45 12/29/18 02:45 Heparin Anti-Xa Act, Unfractionated 0.90 IU/mL (0.30-0.70) < 0.10 IU/mL (0.30-0.70) Sodium Level 139 mmol/L (136-145) Potassium Level 3.4 mmol/L (3.5-5.1) Chloride Level 106 mmol/L (98-107) Carbon Dioxide Level 28 mmol/L (21-32) Anion Gap 5 (6-14) Blood Urea Nitrogen 14 mg/dL (8-26) Creatinine 0.8 mg/dL (0.7-1.3) Estimated GFR (Cockcroft-Gault) 99.6 BUN/Creatinine Ratio 18 (6-20) Glucose Level 145 mg/dL (70-99) Calcium Level 8.2 mg/dL (8.5-10.1) Phosphorus Level 3.0 mg/dL (2.6-4.7) Magnesium Level 1.8 mg/dL (1.8-2.4) Total Bilirubin 0.6 mg/dL (0.2-1.0) Aspartate Amino Transf (AST/SGOT) 75 U/L (15-37) Alanine Aminotransferase (ALT/SGPT) 393 U/L (16-63) Alkaline Phosphatase 42 U/L (46-116) Total Protein 5.5 g/dL (6.4-8.2) Albumin 2.6 g/dL (3.4-5.0) Albumin/Globulin Ratio 0.9 (1.0-1.7) Triglycerides Level 84 mg/dL (0-150) Micro Microbiology 12/24/18 Blood Culture - Preliminary, Resulted NO GROWTH AFTER 4 DAYS 12/20/18 Urine Culture - Final, Complete 12/20/18 Urine Culture Result 1 (AMARA) - Final, Complete Objective Assessment UGI bleed s/p EGD 12/24 - Non-variceal bleeding, distal esophagus. Inflammatory/Dieulafoy possible, aggravated by coagulopathy. -S/P PRBCs 12/24 12/25 Acute Resp failure - intubated 12/24 - blood seen on intubation Afib on Amiodarone Transaminitis - ? reactive vs med/TPN vs other - nml lipase Encephaloapathy Fever ? aspiration, PRBCs, infection -better Leukocytosis - better - nml lactic Suspected aspiration Sinusitis Dysphagia failed bedside swallow Recent Alcohol withdrawal s/p fall while intoxicated ? seizure Coagualopathy - Appreciated Heme eval Valvular disorder - Aortic stenosis s/p mechanical aortic valve - cults neg CAD Encephalopathy, likely posterior reversible encephalopathy syndrome Plan Plan of Care will start scaling down antibiotics D/w nursing Critically ill - improving TAE GELLER MD Dec 29, 2018 07:56
[2018-12-29] MEDS ORDERED: LOPERAMIDE 2 MG/15 ML ORAL SUSP. PEG PRN (08:00)
--- NOTE | 2018-12-29 08:19 | RAD ---
PORTABLE CHEST 1V History: Respiratory failure Comparison: 12/28/2018 Findings: Single view of the chest is submitted. There again has been median sternotomy. There is again right upper extremity PICC with the tip near the cavoatrial junction. Cardiac silhouette is stable. There is mild right base airspace opacity as seen previously, no new infiltrate or significant dependent pleural fluid. There is no pneumothorax. Impression: 1. There is again mild right base airspace opacity which may be due to infiltrate. Electronically signed by: Jason Badillo MD (12/29/2018 8:17 AM) [id number]
[2018-12-29] MEDS: SCOPOLAMINE 1.5MG PATCH. TD SCH (08:49)
[2018-12-29] MEDS: PANTOPRAZOLE IV PUSH 40 MG VIAL. IVP SCH ×2 (08:49→20:47)
[2018-12-29] MEDS: cefTRIAXone IV Push 1 GM VIAL. IVP SCH (08:49)
[2018-12-29] MEDS: NICOTINE 21MG PATCH. TD SCH (08:49)
[2018-12-29] MEDS: CALCIUM CARBONATE 500 MG TABLET PO SCH ×3 (08:59→18:00)
[2018-12-29] MEDS: ASPIRIN RECTAL 300 MG SUPP. PR SCH (09:00)
[2018-12-29] MEDS: LORazepam 1 MG TABLET PO SCH ×2 (09:00→19:52)
[2018-12-29] MEDS: METOPROLOL TART IMMED RELEASE 25 MG TABLET. PO SCH ×2 (09:00→19:52)
--- NOTE | 2018-12-29 09:40 | PDOC ---
SUBJECTIVE Subjective S: Extubated, denies any blood in his stool O: Gen: awake, resting in bed in no acute distress Neuro: Alert, not oriented Psych: pleasant Labs: ferr 786, sat 22, TIBC low A/P: He is a 58-year-old man w/ h/o alcoholism, admitted while inebriated post fall w/ scalp laceration and hyponatremia on admit s/p clipping of UGI bleed noted while on warfarin for history of mechanical heart valve GI bleed: UGI bleed appears to have stopped, GI is involved, s/p 6 x rbcs last 10 Oct w/ good response and 4 x FFP Coagulopathy: Due to Coumadin, reversed Fever and elevated pro-calcitonin: improved, per ID, on multiple antimicrobials Respiratory distress: resolved, extubated Mechanical heart valve: Coumadin has been on hold with recent GI bleed, cardiology is involved, doing well on hep gtt, likely fine to start coumadin and lovenox, defer anticoagulation to cardiology since this is for valvular heart disease, coagulopathy appears to be resolved, would keep an eye on CBCs and INR if restarting Coumadin Neuro: neuro is involved, appears alert today Please do not hesitate to call with any further questions, thank you kindly. OBJECTIVE Vital Signs Vital Signs Date Time Temp Pulse Resp B/P (MAP) Pulse Ox O2 Delivery O2 Flow Rate FiO2 12/29/18 07:51 96 Room Air 12/29/18 07:00 98.8 106 20 142/65 (90) 95 Room Air 98.8 12/29/18 05:51 101 158/85 12/29/18 05:51 101 158/85 12/29/18 03:10 98.5 101 18 158/85 (109) 95 Room Air 98.5 12/29/18 01:12 92 179/84 12/28/18 22:45 98.6 92 22 179/84 (115) 98 Room Air 98.6 12/28/18 21:41 98 165/78 12/28/18 20:34 98 165/78 12/28/18 19:59 Room Air 12/28/18 19:40 Room Air 12/28/18 19:40 98.4 98 20 165/78 (107) 96 Room Air 98.4 12/28/18 18:42 95 165/79 12/28/18 16:40 Room Air 12/28/18 16:00 95 22 165/79 (107) Room Air 12/28/18 14:35 101 167/78 12/28/18 14:00 101 22 167/78 (107) Room Air 12/28/18 13:00 108 21 161/79 (106) Room Air 12/28/18 12:06 Room Air 12/28/18 12:00 98.5 109 21 148/72 (97) 96 Room Air 98.5 12/28/18 12:00 Room Air 12/28/18 11:41 110 160/77 12/28/18 11:00 110 28 160/77 (104) 95 Room Air 12/28/18 10:00 96 30 158/83 (108) 96 Room Air I & O Intake and Output 12/29/18 07:00 Intake Total 1087 ml Output Total 2850 ml Balance -1763 ml Intake Oral 0 ml IV Total 1087 ml Output Urine Total 2850 ml COMMENT Lab Laboratory Tests Test 12/28/18 09:45 12/29/18 02:45 Heparin Anti-Xa Act, Unfractionated 0.90 IU/mL (0.30-0.70) < 0.10 IU/mL (0.30-0.70) Sodium Level 139 mmol/L (136-145) Potassium Level 3.4 mmol/L (3.5-5.1) Chloride Level 106 mmol/L (98-107) Carbon Dioxide Level 28 mmol/L (21-32) Anion Gap 5 (6-14) Blood Urea Nitrogen 14 mg/dL (8-26) Creatinine 0.8 mg/dL (0.7-1.3) Estimated GFR (Cockcroft-Gault) 99.6 BUN/Creatinine Ratio 18 (6-20) Glucose Level 145 mg/dL (70-99) Calcium Level 8.2 mg/dL (8.5-10.1) Phosphorus Level 3.0 mg/dL (2.6-4.7) Magnesium Level 1.8 mg/dL (1.8-2.4) Total Bilirubin 0.6 mg/dL (0.2-1.0) Aspartate Amino Transf (AST/SGOT) 75 U/L (15-37) Alanine Aminotransferase (ALT/SGPT) 393 U/L (16-63) Alkaline Phosphatase 42 U/L (46-116) Total Protein 5.5 g/dL (6.4-8.2) Albumin 2.6 g/dL (3.4-5.0) Albumin/Globulin Ratio 0.9 (1.0-1.7) Triglycerides Level 84 mg/dL (0-150) BENNY ROCHA MD Dec 29, 2018 09:40
--- NOTE | 2018-12-29 10:00 | PDOC ---
PULMONARY PROGRESS NOTES Subjective Pt. is extubated on 12/27/18, on 2 liters N/C tolerating well Pt. is CONFUSED Vitals Vital Signs Date Time Temp Pulse Resp B/P (MAP) Pulse Ox O2 Delivery O2 Flow Rate FiO2 12/29/18 07:51 96 Room Air 12/29/18 07:00 98.8 106 20 142/65 (90) 98.8 ROS: No Nausea, No Chest Pain, No Abdominal Pain, No Increase Cough General: Alert Lungs: Other (dim in right base ) Cardiovascular: S1, S2 Abdomen: Soft Neuro Exam: Alert Extremities: Other Skin: Warm, Dry Labs Laboratory Tests Test 12/27/18 14:30 12/27/18 20:30 12/28/18 02:52 12/28/18 03:00 Heparin Anti-Xa Act, Unfractionated > 1.10 IU/mL (0.30-0.70) 0.14 IU/mL (0.30-0.70) 0.35 IU/mL (0.30-0.70) Glucose (Fingerstick) 158 mg/dL (70-99) Sodium Level 145 mmol/L (136-145) Potassium Level 3.3 mmol/L (3.5-5.1) Chloride Level 111 mmol/L (98-107) Carbon Dioxide Level 26 mmol/L (21-32) Anion Gap 8 (6-14) Blood Urea Nitrogen 18 mg/dL (8-26) Creatinine 0.8 mg/dL (0.7-1.3) Estimated GFR (Cockcroft-Gault) 99.6 Glucose Level 172 mg/dL (70-99) Calcium Level 8.3 mg/dL (8.5-10.1) Phosphorus Level 2.6 mg/dL (2.6-4.7) Magnesium Level 1.8 mg/dL (1.8-2.4) Test 12/28/18 09:45 12/29/18 02:45 Heparin Anti-Xa Act, Unfractionated 0.90 IU/mL (0.30-0.70) < 0.10 IU/mL (0.30-0.70) Sodium Level 139 mmol/L (136-145) Potassium Level 3.4 mmol/L (3.5-5.1) Chloride Level 106 mmol/L (98-107) Carbon Dioxide Level 28 mmol/L (21-32) Anion Gap 5 (6-14) Blood Urea Nitrogen 14 mg/dL (8-26) Creatinine 0.8 mg/dL (0.7-1.3) Estimated GFR (Cockcroft-Gault) 99.6 BUN/Creatinine Ratio 18 (6-20) Glucose Level 145 mg/dL (70-99) Calcium Level 8.2 mg/dL (8.5-10.1) Phosphorus Level 3.0 mg/dL (2.6-4.7) Magnesium Level 1.8 mg/dL (1.8-2.4) Total Bilirubin 0.6 mg/dL (0.2-1.0) Aspartate Amino Transf (AST/SGOT) 75 U/L (15-37) Alanine Aminotransferase (ALT/SGPT) 393 U/L (16-63) Alkaline Phosphatase 42 U/L (46-116) Total Protein 5.5 g/dL (6.4-8.2) Albumin 2.6 g/dL (3.4-5.0) Albumin/Globulin Ratio 0.9 (1.0-1.7) Triglycerides Level 84 mg/dL (0-150) Laboratory Tests Test 12/29/18 02:45 Heparin Anti-Xa Act, Unfractionated < 0.10 IU/mL (0.30-0.70) Sodium Level 139 mmol/L (136-145) Potassium Level 3.4 mmol/L (3.5-5.1) Chloride Level 106 mmol/L (98-107) Carbon Dioxide Level 28 mmol/L (21-32) Anion Gap 5 (6-14) Blood Urea Nitrogen 14 mg/dL (8-26) Creatinine 0.8 mg/dL (0.7-1.3) Estimated GFR (Cockcroft-Gault) 99.6 BUN/Creatinine Ratio 18 (6-20) Glucose Level 145 mg/dL (70-99) Calcium Level 8.2 mg/dL (8.5-10.1) Phosphorus Level 3.0 mg/dL (2.6-4.7) Magnesium Level 1.8 mg/dL (1.8-2.4) Total Bilirubin 0.6 mg/dL (0.2-1.0) Aspartate Amino Transf (AST/SGOT) 75 U/L (15-37) Alanine Aminotransferase (ALT/SGPT) 393 U/L (16-63) Alkaline Phosphatase 42 U/L (46-116) Total Protein 5.5 g/dL (6.4-8.2) Albumin 2.6 g/dL (3.4-5.0) Albumin/Globulin Ratio 0.9 (1.0-1.7) Triglycerides Level 84 mg/dL (0-150) Medications Active Scripts Medications Dose Route/Sig Max Daily Dose Days Date Category Lorazepam 1 Mg Tablet 1 Tab PO BID 12/10/18 Reported Percocet 7.5-325 Mg Tablet (Oxycodone/Acetaminophen) 1 Each Tablet 1 Tab PO PRN Q6HRS PRN 12/10/18 Reported Coumadin (Warfarin Sodium) 5 Mg Tablet 1 Tab PO DAILY 10/06/17 Reported Lisinopril 20 Mg Tablet 1 Tab PO DAILY 10/06/17 Reported Impression . 1. Acute respiratory failure secondary to severe metabolic acidosis.--improved 2. Metabolic acidosis.-resolved 3. Septic shock versus acute volemic shock.--resolved 4. Leukocytosis----resolved 5. Acute drop in hemoglobin--- stable 6. Alcoholism ---- ongoing 7. Hyponatremia--- improved 8. Protein malnutrition 9. Metaboli/ toxic encephalopathy---- improved 10. Possible aspiration 11. Fever. 12. History of seizures. 13. Chronic obstructive pulmonary disease. 14. Hypertension. 15. Peripheral neuropathy. 16. Status post aortic valve replacement for aortic stenosis. 17. NON VARICEAL BLEED UPON EGD Plan . EXTUBATED NOW CONFUSED I THINK WITH TIME HIS ENCE WILL IMPTOVE OK TO TRANSFER TO [facility] ANTI BX PER ID SPOKE WITH FATHER AT BEDSIDE YOHAN COWAN MD Dec 29, 2018 10:00
[2018-12-29 10:21] VITALS: BP 149/74
--- NOTE | 2018-12-29 11:26 | PDOC ---
Objective: Objective: No bleeding per nurse - confusion, doesn't track visually - NPO per [employer]A MAKER. On TPN. Vital Signs: Vital Signs Date Time Temp Pulse Resp B/P (MAP) Pulse Ox O2 Delivery O2 Flow Rate FiO2 12/29/18 10:21 98.7 110 20 149/74 (99) 95 Room Air 98.7 12/29/18 08:00 2.0 Labs: Laboratory Tests Test 12/29/18 02:45 12/29/18 10:00 Heparin Anti-Xa Act, Unfractionated < 0.10 IU/mL > 1.10 IU/mL Sodium Level 139 mmol/L Potassium Level 3.4 mmol/L Chloride Level 106 mmol/L Carbon Dioxide Level 28 mmol/L Anion Gap 5 Blood Urea Nitrogen 14 mg/dL Creatinine 0.8 mg/dL Estimated GFR (Cockcroft-Gault) 99.6 BUN/Creatinine Ratio 18 Glucose Level 145 mg/dL Calcium Level 8.2 mg/dL Phosphorus Level 3.0 mg/dL Magnesium Level 1.8 mg/dL Total Bilirubin 0.6 mg/dL Aspartate Amino Transf (AST/SGOT) 75 U/L Alanine Aminotransferase (ALT/SGPT) 393 U/L Alkaline Phosphatase 42 U/L Total Protein 5.5 g/dL Albumin 2.6 g/dL Albumin/Globulin Ratio 0.9 Triglycerides Level 84 mg/dL BLOOD CULTURE Final NO GROWTH AFTER 5 DAYS Imaging: EGD 12/24/18 E--NO varices. Large clot/some fresh blood at GE junction. G--Mild amount of old blood, obscuring posterior upper body. Some hematin throughout. No ulcer, mass seen. On retroflex, clot/some fresh blood at cardia. D--Normal to second portion. --returned to esophagus; clot was dislodged. Under, oozing of fresh blood from right anterior aspect of GEJ. No appreciable depth to injury (suspect inflammatory/reflux, not Shawna-Garrett. Perhaps Dieulafoy's). Two clips placed with essential cessation of bleeding. IMP: Non-variceal bleeding, distal esophagus. Inflammatory/Dieulafoy possible, aggravated by coagulopathy. CXR 12/29 Impression 1. There is again mild right base airspace opacity which may be due to infiltrate. PE: GEN: NAD - family present LUNGS: room air HEART: tachycardic ABD: S/ND/NT NEURO/PSYCH: confused A/P: Encephalopathy UGI bleeding - resolved, EGD last week as above, on PPI Anemia, coagulopathy - improved (Hgb checked 12/26), s/p 6 units pRBCs and 4 units FFP S/p AVR - on Heparin Elevated AST and ALT - improving; normal liver on CT 12/10; h/o alcohol abuse Hyperammonemia - resolved -- Will review w/ Dr. Israel. GABRIEL BRIDGES Dec 29, 2018 11:26
--- NOTE | 2018-12-29 12:01 | PDOC ---
PROGRESS NOTES Assessment Problems Medical Problems: (1) Alcohol abuse Status: Acute (2) Closed head injury Status: Acute Toxic/ anoxic/metabolic encephalopathy, given marked improvement, this may indeed be posterior reversible encephalopathy syndrome as noted on the MRI. 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 Shock and hypotensive events. Acute respiratory failure. Pleural effusion. History of seizure? AFib and valvular heart disease, Coumadin on hold. HTN. HLD. COPD. Peripheral neuropathy. Thrombocytosis Plan Continue treating medical diseases Given improvement, I see no need to repeat MRI and EEG studies, and he does not need a lumbar puncture. He will need long-term placement. Subjective No complaints Objective Vital Signs Date Time Temp Pulse Resp B/P (MAP) Pulse Ox O2 Delivery O2 Flow Rate FiO2 12/29/18 11:52 96 Room Air 12/29/18 10:21 98.7 110 20 149/74 (99) 98.7 12/29/18 08:00 2.0 Intake and Output 12/29/18 07:00 Intake Total 1087 ml Output Total 2850 ml Balance -1763 ml Intake Oral 0 ml IV Total 1087 ml Output Urine Total 2850 ml PHYSICAL EXAM Alert, follows some commands, belligerent when answering questions, also suspect he confabulates Pupils: Both reactive, right a little bit larger than left EOMI. CN: no focal findings. Muscle tone: normal. Muscle strength: Moves all extremities DTR: 1+ Plantar reflex: Flexor Gait: not examined in bed. Sensory exam: not cooperative Cerebellar: not cooperative Review of Relevant I have reviewed the following items robert (where applicable) has been applied. Labs Laboratory Tests Test 12/27/18 14:30 12/27/18 20:30 12/28/18 02:52 12/28/18 03:00 Heparin Anti-Xa Act, Unfractionated > 1.10 IU/mL (0.30-0.70) 0.14 IU/mL (0.30-0.70) 0.35 IU/mL (0.30-0.70) Glucose (Fingerstick) 158 mg/dL (70-99) Sodium Level 145 mmol/L (136-145) Potassium Level 3.3 mmol/L (3.5-5.1) Chloride Level 111 mmol/L (98-107) Carbon Dioxide Level 26 mmol/L (21-32) Anion Gap 8 (6-14) Blood Urea Nitrogen 18 mg/dL (8-26) Creatinine 0.8 mg/dL (0.7-1.3) Estimated GFR (Cockcroft-Gault) 99.6 Glucose Level 172 mg/dL (70-99) Calcium Level 8.3 mg/dL (8.5-10.1) Phosphorus Level 2.6 mg/dL (2.6-4.7) Magnesium Level 1.8 mg/dL (1.8-2.4) Test 12/28/18 09:45 12/29/18 02:45 12/29/18 10:00 Heparin Anti-Xa Act, Unfractionated 0.90 IU/mL (0.30-0.70) < 0.10 IU/mL (0.30-0.70) > 1.10 IU/mL (0.30-0.70) Sodium Level 139 mmol/L (136-145) Potassium Level 3.4 mmol/L (3.5-5.1) Chloride Level 106 mmol/L (98-107) Carbon Dioxide Level 28 mmol/L (21-32) Anion Gap 5 (6-14) Blood Urea Nitrogen 14 mg/dL (8-26) Creatinine 0.8 mg/dL (0.7-1.3) Estimated GFR (Cockcroft-Gault) 99.6 BUN/Creatinine Ratio 18 (6-20) Glucose Level 145 mg/dL (70-99) Calcium Level 8.2 mg/dL (8.5-10.1) Phosphorus Level 3.0 mg/dL (2.6-4.7) Magnesium Level 1.8 mg/dL (1.8-2.4) Total Bilirubin 0.6 mg/dL (0.2-1.0) Aspartate Amino Transf (AST/SGOT) 75 U/L (15-37) Alanine Aminotransferase (ALT/SGPT) 393 U/L (16-63) Alkaline Phosphatase 42 U/L (46-116) Total Protein 5.5 g/dL (6.4-8.2) Albumin 2.6 g/dL (3.4-5.0) Albumin/Globulin Ratio 0.9 (1.0-1.7) Triglycerides Level 84 mg/dL (0-150) Laboratory Tests Test 12/29/18 02:45 12/29/18 10:00 Heparin Anti-Xa Act, Unfractionated < 0.10 IU/mL (0.30-0.70) > 1.10 IU/mL (0.30-0.70) Sodium Level 139 mmol/L (136-145) Potassium Level 3.4 mmol/L (3.5-5.1) Chloride Level 106 mmol/L (98-107) Carbon Dioxide Level 28 mmol/L (21-32) Anion Gap 5 (6-14) Blood Urea Nitrogen 14 mg/dL (8-26) Creatinine 0.8 mg/dL (0.7-1.3) Estimated GFR (Cockcroft-Gault) 99.6 BUN/Creatinine Ratio 18 (6-20) Glucose Level 145 mg/dL (70-99) Calcium Level 8.2 mg/dL (8.5-10.1) Phosphorus Level 3.0 mg/dL (2.6-4.7) Magnesium Level 1.8 mg/dL (1.8-2.4) Total Bilirubin 0.6 mg/dL (0.2-1.0) Aspartate Amino Transf (AST/SGOT) 75 U/L (15-37) Alanine Aminotransferase (ALT/SGPT) 393 U/L (16-63) Alkaline Phosphatase 42 U/L (46-116) Total Protein 5.5 g/dL (6.4-8.2) Albumin 2.6 g/dL (3.4-5.0) Albumin/Globulin Ratio 0.9 (1.0-1.7) Triglycerides Level 84 mg/dL (0-150) Microbiology 12/24/18 Blood Culture - Final, Complete NO GROWTH AFTER 5 DAYS 12/20/18 Urine Culture - Final, Complete 12/20/18 Urine Culture Result 1 (AMARA) - Final, Complete Medications Current Medications Fentanyl Citrate (Fentanyl 2ml Vial) 50 mcg 1X ONCE IV Last administered on 12/10/18at 20:03; Start 12/10/18 at 19:15; Stop 12/10/18 at 19:16; Status DC Iohexol (Omnipaque 300 Mg/ml) 75 ml 1X ONCE IV Last administered on 12/10/18at 19:43; Start 12/10/18 at 19:15; Stop 12/10/18 at 19:16; Status DC Sodium Chloride 1,000 ml @ 1,000 mls/hr 1X ONCE IV Last administered on 12/10/18 19:45; Start 12/10/18 at 19:45; Stop 12/10/18 at 20:44; Status DC Morphine Sulfate (Morphine Sulfate) 2 mg PRN Q2HR PRN IV PAIN Last administered on 12/11/18 12:03; Start 12/10/18 at 20:15; Stop 12/11/18 at 20:14; Status DC Sodium Chloride 1,000 ml @ 100 mls/hr Q10H IV Last administered on 12/11/18at 08:10; Start 12/10/18 at 20:07; Stop 12/11/18 at 12:21; Status DC Diphtheria/ Tetanus/Acell Pertussis (Boostrix) 0.5 ml ONCE ONCE VAX IM Last administered on 12/10/18 21:07; Start 12/10/18 at 20:15; Stop 12/10/18 at 20:16; Status DC Ondansetron HCl (Zofran) 4 mg PRN Q6HRS PRN IV NAUSEA/VOMITING 1ST CHOICE Last administered on 12/21/18 03:27; Start 12/11/18 at 05:30 Multivitamins (Thera M Plus) 1 tab DAILY PO Last administered on 12/12/18 08:14; Start 12/11/18 at 09:00; Stop 12/13/18 at 11:25; Status DC Folic Acid (Folic Acid) 1 mg DAILY PO Last administered on 12/12/18 08:14; Start 12/11/18 at 09:00; Stop 12/13/18 at 11:25; Status DC Chlordiazepoxide (Librium) 50 mg PRN Q1HR PRN PO For CIWA 8-14 2ND CHOICE Last administered on 12/18/18 18:03; Start 12/11/18 at 05:30 Chlordiazepoxide (Librium) 100 mg PRN Q1HR PRN PO For CIWA 15+ 2ND CHOICE Last administered on 12/13/18at 01:11; Start 12/11/18 at 05:30 Lorazepam (Ativan) 4 mg PRN Q1HR PRN PO For CIWA 8-14 Last administered on 12/13/18at 02:48; Start 12/11/18 at 05:30 Lorazepam (Ativan) 8 mg PRN Q1HR PRN PO For CIWA 15 or greater; Start 12/11/18 at 05:30 Lorazepam (Ativan Inj) 2 mg PRN Q1HR PRN IV For CIWA 8-14 Last administered on 12/29/18at 04:05; Start 12/11/18 at 05:30 Lorazepam (Ativan Inj) 4 mg PRN Q1HR PRN IV For CIWA 15 or greater Last administered on 12/26/18 22:11; Start 12/11/18 at 05:30 Haloperidol Lactate (Haldol Inj) 5 mg PRN Q4HRS PRN IVP Hallucinatns,Confusn,Delirium Last administered on 12/27/18 19:18; Start 12/11/18 at 05:30 Diphenhydramine HCl (Benadryl) 25 mg PRN Q15MIN PRN IVP EPS symptoms 2'Haldol admin Last administered on 12/27/18 16:58; Start 12/11/18 at 05:30 Clonidine HCl (Catapres) 0.1 mg PRN Q1HR PRN PO SBP > 180 or DBP > 100, MRX3; Start 12/11/18 at 05:30 Sodium Chloride 1,000 ml @ 60 mls/hr [id number] IV Last administered on 12/21/18 07:26; Start 12/11/18 at 13:00; Stop 12/22/18 at 14:53; Status DC Sodium Chloride 150 ml @ 50 mls/hr 1X ONCE IV Last administered on 12/11/18at 13:48; Start 12/11/18 at 13:00; Stop 12/11/18 at 15:59; Status DC Lisinopril (Prinivil) 20 mg DAILY PO Last administered on 12/19/18 08:00; Start 12/11/18 at 14:00; Stop 12/21/18 at 15:19; Status DC Oxycodone/ Acetaminophen (Percocet 7.5/ 325) 1 tab PRN Q6HRS PRN PO MODERATE TO SEVERE PAIN Last administered on 12/19/18 06:19; Start 12/11/18 at 13:30 Calcium Carbonate/ Glycine (Oscal) 500 mg TIDAFTMEAL PO Last administered on 10/4/19at 17:22; Start 12/12/18 at 13:00 Ziprasidone (Geodon Im) 20 mg 1X ONCE IM ; Start 12/13/18 at 05:00; Stop 12/13/18 at 18:51; Status DC Lorazepam 100 mg/ Sodium Chloride 100 ml @ 2 mls/hr CONT PRN IV SEDATION Last administered on 12/13/18at 19:56; Start 12/13/18 at 07:00; Stop 12/18/18 at 16:33; Status DC Olanzapine (ZyPREXA IM) 10 mg PRN Q8HRS PRN IM AGITATION Last administered on 12/19/18at 00:05; Start 12/13/18 at 08:30 Olanzapine (ZyPREXA IM) 10 mg STK-MED ONCE IM ; Start 12/13/18 at 08:37; Stop 12/13/18 at 08:38; Status DC Fentanyl Citrate (Fentanyl 2ml Vial) 75 mcg 1X ONCE IV ; Start 12/13/18 at 09:45; Stop 12/13/18 at 19:20; Status DC Fentanyl Citrate (Fentanyl 2ml Vial) 100 mcg STK-MED ONCE .ROUTE ; Start 12/13/18 at 09:47; Stop 12/13/18 at 09:48; Status DC Fentanyl Citrate (Fentanyl 2ml Vial) 75 mcg PRN Q30MIN PRN IV PAIN Last administered on 12/27/18at 23:30; Start 12/13/18 at 10:00 Multivitamins 10 ml/Thiamine HCl 100 mg/Folic Acid 1 mg/Sodium Chloride 1,011.2 ml @ 100 mls/ hr DAILY IV Last administered on 12/18/18at 08:55; Start 12/14/18 at 12:00; Stop 12/18/18 at 19:07; Status DC Enoxaparin Sodium (Lovenox 80mg Syringe) 80 mg Q12HR SQ Last administered on 12/21/18at 07:50; Start 12/13/18 at 14:30; Stop 12/21/18 at 12:56; Status DC Warfarin Sodium (Coumadin Per Pharmacy) 1 each PRN DAILY PRN MC SEE COMMENTS Last administered on 12/24/18at 11:27; Start 12/13/18 at 14:15; Stop 12/24/18 at 16:10; Status DC Warfarin Sodium (Coumadin) 7.5 mg 1X WARF ONCE PO ; Start 12/13/18 at 16:00; Stop 12/13/18 at 16:01; Status DC Nicotine (Nicoderm Cq 21mg) 1 patch DAILY TD Last administered on 12/29/18at 08:49; Start 12/14/18 at 09:00 Dexmedetomidine HCl 400 mcg/ Sodium Chloride 100 ml @ 0 mls/hr CONT PRN IV PER PROTOCOL Last administered on 12/18/18at 00:12; Start 12/14/18 at 01:45; Stop 12/18/18 at 16:33; Status DC Sodium Chloride 500 ml @ 500 mls/hr 1X PRN PRN IV SEE COMMENTS; Start 12/14/18 at 01:45; Stop 12/20/18 at 11:56; Status DC Atropine Sulfate (ATROPINE 0.5mg SYRINGE) 0.5 mg PRN Q5MIN PRN IV SEE COMMENTS; Start 12/14/18 at 01:45; Stop 12/20/18 at 11:55; Status DC Nicotine (Nicoderm Cq 21mg) 1 patch STK-MED ONCE TD ; Start 12/14/18 at 01:57; Stop 12/14/18 at 01:57; Status DC Lorazepam (Ativan) 1 mg BID PO Last administered on 12/19/18at 08:00; Start 12/14/18 at 09:00 Warfarin Sodium (Coumadin) 5 mg DAILY16 PO ; Start 12/14/18 at 16:00; Stop 12/14/18 at 09:21; Status DC Warfarin Sodium (Coumadin) 7.5 mg 1X WARF ONCE PO ; Start 12/14/18 at 16:00; Stop 12/14/18 at 16:01; Status DC Enalaprilat (Vasotec Inj) 1.25 mg Q8HRS IVP Last administered on 12/29/18at 05:51; Start 12/14/18 at 15:00 Nicardipine HCl 50 mg/Sodium Chloride 250 ml @ 25 mls/hr CONT PRN IV SEE I/O RECORD Last administered on 12/16/18at 09:58; Start 12/14/18 at 17:45; Stop 1 at 16:33; Status DC Nicardipine HCl 50 mg/Sodium Chloride 250 ml @ 25 mls/hr CONT PRN IV SEE I/O RECORD; Start 12/14/18 at 18:00; Status UNV Warfarin Sodium (Coumadin) 7.5 mg 1X WARF ONCE PO ; Start 12/15/18 at 16:00; Stop 12/15/18 at 16:01; Status DC Warfarin Sodium (Coumadin - No Dose Today) 1 each 1X WARF ONCE MC ; Start 12/16/18 at 16:00; Stop 12/16/18 at 16:01; Status DC Warfarin Sodium (Coumadin) 7.5 mg 1X WARF ONCE PO Last administered on 12/18/18at 08:54; Start 12/17/18 at 16:00; Stop 12/17/18 at 16:01; Status DC Ceftriaxone Sodium (Rocephin) 1 gm Q24H IVP Last administered on 12/20/18at 12:08; Start 12/18/18 at 12:30; Stop 12/20/18 at 15:14; Status DC Metoprolol Tartrate (Lopressor) 25 mg BID PO Last administered on 12/19/18at 08:01; Start 12/18/18 at 12:30 Acetaminophen/ Codeine Phosphate (Tylenol #3) 1 tab PRN Q6HRS PRN PO PAIN MILD TO MOD; Start 12/18/18 at 12:00; Stop 12/18/18 at 12:55; Status DC Lactobacillus Rhamnosus (Culturelle) 1 cap BID PO Last administered on 12/19/18at 08:00; Start 12/18/18 at 21:00; Stop 12/24/18 at 11:17; Status DC Acetaminophen (Tylenol) 650 mg PRN Q6HRS PRN PO FEVER Last administered on 12/19/18at 17:23; Start 12/18/18 at 13:00 Warfarin Sodium (Coumadin) 7.5 mg 1X WARF ONCE PO Last administered on 12/18/18at 18:03; Start 12/18/18 at 16:00; Stop 12/18/18 at 16:11; Status DC Albuterol/ Ipratropium (Duoneb) 3 ml 1X ONCE NEB Last administered on 12/19/18at 07:15; Start 12/19/18 at 07:15; Stop 12/19/18 at 07:16; Status DC Ziprasidone (Geodon Im) 10 mg 1X ONCE IM Last administered on 12/19/18at 07:42; Start 12/19/18 at 07:15; Stop 12/19/18 at 07:16; Status DC Warfarin Sodium (Coumadin) 7.5 mg 1X WARF ONCE PO Last administered on 12/19/18 17:23; Start 12/19/18 at 16:00; Stop 12/19/18 at 16:01; Status DC Potassium Chloride (Klor-Con) 40 meq 1X ONCE PO Last administered on 12/19/18at 16:12; Start 12/19/18 at 14:00; Stop 12/19/18 at 14:01; Status DC Potassium Chloride (Klor-Con) 20 meq DAILYWBKFT PO ; Start 12/20/18 at 08:00; Stop 12/28/18 at 08:35; Status DC Doxycycline Hyclate (Vibra-Tab) 100 mg BID PO Last administered on 12/19/18 17:22; Start 12/19/18 at 17:30; Stop 12/19/18 at 17:57; Status DC Doxycycline Hyclate 100 mg/ Dextrose 100 ml @ 50 mls/hr Q12HR IV Last administered on 12/23/18 22:17; Start 12/19/18 at 21:00; Stop 12/24/18 at 10:15; Status DC Metoprolol Tartrate (Lopressor Vial) 5 mg PRN Q6HRS PRN IVP HYPERTENSION Last administered on 12/24/18 07:22; Start 12/19/18 at 18:00 Scopolamine (Transderm-Scop) 1 patch Q3DAYS TD Last administered on 12/29/18at 08:49; Start 12/20/18 at 09:00 Potassium Chloride/Water 100 ml @ 100 mls/hr Q1H IV Last administered on 12/20/18at 10:36; Start 12/20/18 at 06:00; Stop 12/20/18 at 09:59; Status DC Potassium Chloride (Klor-Con) 40 meq 1X ONCE PO ; Start 12/20/18 at 08:00; Stop 12/20/18 at 08:01; Status DC Acetaminophen (Tylenol Supp) 650 mg PRN Q6HRS PRN MT MILD PAIN / TEMP Last administered on 12/28/18at 21:28; Start 12/20/18 at 07:15 Warfarin Sodium (Coumadin) 7.5 mg 1X WARF ONCE PO ; Start 12/20/18 at 16:00; Stop 12/20/18 at 16:01; Status DC Hydralazine HCl (Apresoline Inj) 10 mg PRN Q4HRS PRN IVP ELEVATED BP, SEE COMMENTS Last administered on 12/22/18at 11:07; Start 12/20/18 at 14:30 Potassium Chloride (Klor-Con) 40 meq 1X ONCE PO ; Start 12/20/18 at 14:30; Stop 12/20/18 at 14:41; Status DC Potassium Chloride (Klor-Con) 20 meq DAILYWBKFT PO ; Start 12/21/18 at 08:00; Stop 12/25/18 at 11:25; Status DC Albuterol/ Ipratropium (Duoneb) 3 ml RTQID NEB Last administered on 12/29/18at 11:52; Start 12/20/18 at 16:00 Piperacillin Sod/ Tazobactam Sod 3.375 gm/Sodium Chloride 50 ml @ 100 mls/hr Q6HRS IV Last administered on 12/24/18at 05:09; Start 12/20/18 at 16:00; Stop 12/24/18 at 10:15; Status DC Amino Acids/ Glycerin/ Electrolytes 1,000 ml @ 75 mls/hr [id number] IV Last administered on 12/25/18at 09:05; Start 12/21/18 at 13:00; Stop 12/25/18 at 21:59; Status DC Warfarin Sodium (Coumadin) 1 mg 1X WARF ONCE PO ; Start 12/21/18 at 16:00; Stop 12/21/18 at 16:01; Status DC Sodium Chloride 1,000 ml @ 75 mls/hr 1X ONCE IV Last administered on 12/21/18at 13:49; Start 12/21/18 at 13:15; Stop 12/22/18 at 02:34; Status DC Potassium Chloride/Water 100 ml @ 100 mls/hr Q1H IV Last administered on 12/22/18at 11:03; Start 12/22/18 at 06:00; Stop 12/22/18 at 09:59; Status DC Sodium Chloride 1,000 ml @ 75 mls/hr 1X ONCE IV Last administered on 12/22/18at 14:49; Start 12/22/18 at 14:30; Stop 12/23/18 at 03:49; Status DC Potassium Chloride 20 meq/ Sodium Chloride 1,010 ml @ 75 mls/hr 1X ONCE IV Last administered on 12/22/18at 17:51; Start 12/22/18 at 16:00; Stop 12/23/18 at 05:27; Status DC Hydralazine HCl (Apresoline Inj) 10 mg Q6HRS IVP Last administered on 12/29/18 05:51; Start 12/22/18 at 18:00 Potassium Chloride/Water 100 ml @ 100 mls/hr Q1H IV Last administered on 12/23/18 14:01; Start 12/23/18 at 06:00; Stop 12/23/18 at 09:59; Status DC Potassium Chloride/Water 50 ml @ 50 mls/hr Q1H IV ; Start 12/23/18 at 11:15; Stop 12/23/18 at 13:14; Status UNV Potassium Chloride/Water 100 ml @ 100 mls/hr Q1H IV ; Start 12/23/18 at 11:30; Stop 12/23/18 at 13:04; Status DC Warfarin Sodium (Coumadin - No Dose Today) 1 each 1X WARF ONCE MC Last administered on 12/23/18at 16:00; Start 12/23/18 at 16:00; Stop 12/23/18 at 16:01; Status DC Pantoprazole Sodium (PROTONIX VIAL for IV PUSH) 40 mg DAILYAC IVP Last administered on 12/23/18at 15:21; Start 12/23/18 at 15:00; Stop 12/24/18 at 10:43; Status DC Cefepime HCl (Maxipime) 2 gm Q8HRS IVP Last administered on 12/29/18at 05:51; Start 12/24/18 at 10:00; Stop 12/29/18 at 07:57; Status DC Metronidazole 100 ml @ 100 mls/hr Q8HRS IV Last administered on 12/29/18 05:51; Start 12/24/18 at 10:00; Stop 12/29/18 at 07:57; Status DC Daptomycin 460 mg/ Sodium Chloride 50 ml @ 100 mls/hr Q24H IV Last adminis tered on 12/27/18at 10:58; Start 12/24/18 at 11:00; Stop 12/28/18 at 11:10; Status DC Micafungin Sodium 100 mg/Dextrose 100 ml @ 100 mls/hr Q24H IV Last administered on 12/28/18at 08:58; Start 12/24/18 at 12:00; Stop 12/28/18 at 11:10; Status DC Pantoprazole Sodium 80 mg/ Sodium Chloride 100 ml @ 10 mls/hr Q10H IV Last administered on 12/26/18at 13:23; Start 12/24/18 at 11:00; Stop 12/26/18 at 15:12; Status DC Lorazepam (Ativan) 1 mg PRN Q6HRS PRN PO ANXIETY / AGITATION 1ST CHOICE; Start 12/24/18 at 10:45 Ondansetron HCl (Zofran) 4 mg PRN Q6HRS PRN IV NAUSEA/VOMITING; Start 12/24/18 at 10:45; Stop 12/24/18 at 10:52; Status DC Info (Icu Electrolyte Protocol) 1 ea DAILY MC Last administered on 12/25/18at 08:50; Start 12/25/18 at 09:00; Stop 12/28/18 at 17:05; Status DC Sodium Chloride (Normal Saline Flush) 3 ml QSHIFT PRN IV AFTER MEDS AND BLOOD DRAWS; Start 12/24/18 at 10:45 Sodium Chloride 1,000 ml @ 2,130 mls/hr Q29M IV Last administered on 12/24/18at 12:13; Start 12/24/18 at 10:50; Stop 12/24/18 at 11:50; Status DC Sodium Chloride 500 ml @ 1,000 mls/hr PRN Q30MIN PRN IV SEE COMMENTS; Start 12/24/18 at 11:00 Norepinephrine Bitartrate 250 ml @ 0 mls/hr CONT PRN IV SEE COMMENTS Last administered on 12/24/18at 20:22; Start 12/24/18 at 11:00; Stop 12/27/18 at 09:21; Status DC Dobutamine HCl/ Dextrose 250 ml @ 0 mls/hr CONT PRN IV SEE COMMENTS; Start 12/24/18 at 11:00; Stop 12/28/18 at 17:04; Status DC Sodium Bicarbonate (Sodium Bicarb Adult 8.4% Syr) 100 meq 1X ONCE IV Last administered on 12/24/18at 11:16; Start 12/24/18 at 11:15; Stop 12/24/18 at 11:16; Status DC Phytonadione (Vitamin K Ampule) 5 mg 1X ONCE SQ Last administered on 12/24/18at 12:24; Start 12/24/18 at 11:15; Stop 12/24/18 at 11:22; Status DC Succinylcholine Chloride (Anectine) 200 mg STK-MED ONCE .ROUTE ; Start 12/24/18 at 11:20; Stop 12/24/18 at 11:21; Status DC Midazolam HCl (Versed) 5 mg STK-MED ONCE .ROUTE ; Start 12/24/18 at 11:21; Stop 12/24/18 at 11:21; Status DC Warfarin Sodium (Coumadin - No Dose Today) 1 each 1X WARF ONCE MC ; Start 12/24/18 at 16:00; Stop 12/24/18 at 22:25; Status DC Atropine Sulfate (ATROPINE 1mg SYRINGE) 1 mg STK-MED ONCE .ROUTE ; Start 12/24/18 at 11:30; Stop 12/24/18 at 11:30; Status DC Epinephrine HCl (Adrenalin) 1 mg STK-MED ONCE .ROUTE ; Start 12/24/18 at 11:30; Stop 12/24/18 at 11:30; Status DC Succinylcholine Chloride (Anectine) 60 mg 1X ONCE IV Last administered on 12/24/18at 12:04; Start 12/24/18 at 11:45; Stop 12/24/18 at 11:46; Status DC Midazolam HCl (Versed) 2 mg 1X ONCE IV Last administered on 12/24/18at 11:30; Start 12/24/18 at 11:45; Stop 12/24/18 at 11:46; Status DC Epinephrine HCl (EPINEPHrine SYRINGE) 1 mg 1X ONCE IV ; Start 12/24/18 at 11:45; Stop 12/24/18 at 11:46; Status DC Sodium Chloride 1,000 ml @ 1,000 mls/hr 1X ONCE IV ; Start 12/24/18 at 11:45; Stop 12/24/18 at 12:44; Status DC Midazolam HCl 100 ml @ 5 mls/hr CONT PRN IV SEE I/O RECORD Last administered on 12/25/18at 23:40; Start 12/24/18 at 12:00; Stop 12/27/18 at 09:21; Status DC Fentanyl Citrate 30 ml @ 0 mls/hr CONT PRN IV SEE PROTOCOL Last administered on 12/26/18at 05:26; Start 12/24/18 at 12:00; Stop 12/28/18 at 17:06; Status DC Midazolam HCl (Versed) 2 mg 1X ONCE IV ; Start 12/24/18 at 12:15; Stop 12/24/18 at 12:16; Status DC Metoclopramide HCl (Reglan Vial) 10 mg 1X ONCE IVP Last administered on 12/24/18at 15:00; Start 12/24/18 at 12:45; Stop 12/24/18 at 12:46; Status DC Vasopressin 40 unit/Dextrose 102 ml @ 6 mls/hr CONT PRN IV SEE I/O RECORD Last administered on 12/26/18at 12:38; Start 12/24/18 at 13:00; Stop 12/27/18 at 09:21; Status DC Albumin Human 500 ml @ As Directed STK-MED ONCE IV ; Start 12/24/18 at 14:37; Stop 12/24/18 at 14:37; Status DC Albumin Human 500 ml @ 125 mls/hr 1X ONCE IV Last administered on 12/24/18at 14:39; Start 12/24/18 at 14:45; Stop 12/24/18 at 18:44; Status DC Digoxin (Lanoxin) 500 mcg 1X ONCE IV Last administered on 12/24/18at 15:30; Start 12/24/18 at 15:30; Stop 12/24/18 at 15:31; Status DC Digoxin (Lanoxin) 500 mcg STK-MED ONCE .ROUTE ; Start 12/24/18 at 15:07; Stop 12/24/18 at 15:08; Status DC Phytonadione (Vitamin K Ampule) 10 mg 1X ONCE SQ Last administered on 12/24/18at 17:36; Start 12/24/18 at 15:45; Stop 12/24/18 at 15:49; Status DC Amiodarone HCl 150 mg/Dextrose 103 ml @ 618 mls/hr 1X ONCE IV Last administered on 12/24/18at 17:09; Start 12/24/18 at 16:00; Stop 12/24/18 at 16:09; Status DC Amiodarone HCl 900 mg/Dextrose 518 ml @ 0 mls/hr CONT PRN IV SEE I/O RECORD Last administered on 12/24/18at 17:55; Start 12/24/18 at 16:00; Stop 12/24/18 at 17:55; Status DC Phytonadione (Vitamin K Ampule) 10 mg 1X ONCE SQ ; Start 12/24/18 at 17:00; Stop 12/24/18 at 17:01; Status DC Potassium Chloride/Water 50 ml @ 50 mls/hr Q1H IV Last administered on 12/25/18at 12:37; Start 12/25/18 at 09:00; Stop 12/25/18 at 12:59; Status DC Potassium Chloride/Water 50 ml @ 0 mls/hr Q1H IV ; Start 12/25/18 at 08:30; Stop 12/25/18 at 11:31; Status UNV Info (Tpn Per Pharmacy) 1 each PRN DAILY PRN MC SEE COMMENTS Last administered on 12/28/18at 14:30; Start 12/25/18 at 09:45 Sodium Chloride 50 meq/Potassium Acetate 70 meq/ Potassium Phosphate 13.6 mmol/Magnesium Sulfate 10 meq/ Calcium Gluconate 10 meq/ Multivitamins 10 ml/Chromium/ Copper/Manganese/ Seleni/Zn 1 ml/ Total Parenteral Nutrition/Amino Acids/Dextrose/ Fat Emulsion Intravenous 1,512 ml @ 63 mls/hr TPN CONT IV Last administered on 12/25/18at 21:37; Start 12/25/18 at 22:00; Stop 12/26/18 at 21:59; Status DC Amiodarone HCl 900 mg/Dextrose 518 ml @ 17 mls/hr CONT PRN IV .; Start 12/25/18 at 20:00; Status Cancel Amiodarone HCl 900 mg/Dextrose 518 ml @ 0 mls/hr CONT PRN IV SEE I/O RECORD Last administered on 12/25/18at 20:15; Start 12/25/18 at 20:15; Stop 12/25/18 at 20:15; Status DC Aspirin (Aspirin Rectal Supp) 300 mg DAILY MT Last administered on 12/28/18at 09:20; Start 12/26/18 at 11:00 Amiodarone HCl 900 mg/Dextrose 518 ml @ 33 mls/hr CONT PRN IV SEE I/O RECORD; Start 12/26/18 at 12:45; Stop 12/27/18 at 01:06; Status DC Potassium Acetate 70 meq/Potassium Phosphate 17 mmol/ Magnesium Sulfate 10 meq/Calcium Gluconate 10 meq/ Multivitamins 10 ml/Chromium/ Copper/Manganese/ Seleni/Zn 1 ml/ Thiamine HCl 100 mg/Folic Acid 1 mg/Total Parenteral Nutrition/Amino Acids/Dextrose/ Fat Emulsion Intravenous 1,992 ml @ 83 mls/hr TPN CONT IV Last administered on 12/26/18at 21:53; Start 12/26/18 at 22:00; Stop 12/27/18 at 21:59; Status DC Heparin Sodium/ Dextrose 500 ml @ 18.72 mls/ hr CONT PRN IV PER PROTOCOL Last administered on 12/28/18at 10:22; Start 12/26/18 at 14:45 Heparin Sodium (Porcine) (Heparin Sodium) 1,950 unit PRN Q6HRS PRN IV FOR UFH LEVEL LESS THAN 0.2 Last administered on 12/29/18at 04:01; Start 12/26/18 at 14:45 Pantoprazole Sodium (PROTONIX VIAL for IV PUSH) 40 mg BID IVP Last administered on 12/29/18at 08:49; Start 12/26/18 at 21:00 Amiodarone HCl 450 mg/Dextrose 259 ml @ 17 mls/hr CONT PRN IV SEE I/O RECORD Last administered on 12/27/18at 19:19; Start 12/27/18 at 02:00 Potassium Acetate 85 meq/Potassium Phosphate 17 mmol/ Magnesium Sulfate 10 meq/Calcium Gluconate 10 meq/ Multivitamins 10 ml/Chromium/ Copper/Manganese/ Seleni/Zn 1 ml/ Thiamine HCl 100 mg/Folic Acid 1 mg/Total Parenteral N utrition/Amino Acids/Dextrose/ Fat Emulsion Intravenous 1,992 ml @ 83 mls/hr TPN CONT IV Last administered on 12/27/18at 21:33; Start 12/27/18 at 22:00; Stop 12/28/18 at 21:59; Status DC Potassium Chloride/Water 100 ml @ 100 mls/hr Q1H IV Last administered on 12/28/18at 10:21; Start 12/28/18 at 09:00; Stop 12/28/18 at 10:59; Status DC Potassium Chloride/Water 50 ml @ 50 mls/hr DAILY IV ; Start 12/28/18 at 09:00; Status UNV Potassium Acetate 100 meq/Potassium Phosphate 20 mmol/ Magnesium Sulfate 13 meq/Calcium Gluconate 10 meq/ Multivitamins 10 ml/Chromium/ Copper/Manganese/ Seleni/Zn 1 ml/ Thiamine HCl 100 mg/Folic Acid 1 mg/Total Parenteral Nutrition/Amino Acids/Dextrose/ Fat Emulsion Intravenous 1,992 ml @ 83 mls/hr TPN CONT IV Last administered on 12/28/18at 21:31; Start 12/28/18 at 22:00; Stop 12/29/18 at 21:59 Ceftriaxone Sodium (Rocephin) 1 gm Q24H IVP Last administered on 12/29/18at 08:49; Start 12/29/18 at 08:00 Loperamide HCl (Immodium Oral Susp) 2 mg PRN Q30MIN PRN PEG DIARRHEA; Start 12/29/18 at 08:00 Active Scripts Active Reported Lorazepam 1 Mg Tablet 1 Tab PO BID Percocet 7.5-325 Mg Tablet (Oxycodone/Acetaminophen) 1 Each Tablet 1 Tab PO PRN Q6HRS PRN Coumadin (Warfarin Sodium) 5 Mg Tablet 1 Tab PO DAILY Lisinopril 20 Mg Tablet 1 Tab PO DAILY Vitals/I & O Vital Sign - Last 24 Hours 12/28/18 12/28/18 12/28/18 12/28/18 12:00 12:00 12:06 13:00 Temp 98.5 98.5 Pulse 109 108 Resp 21 21 B/P (MAP) 148/72 (97) 161/79 (106) Pulse Ox 96 O2 Delivery Room Air Room Air Room Air Room Air 12/28/18 12/28/18 12/28/18 12/28/18 14:00 14:35 16:00 16:40 Pulse 101 101 95 Resp 22 22 B/P (MAP) 167/78 (107) 167/78 165/79 (107) O2 Delivery Room Air Room Air Room Air 12/28/18 12/28/18 12/28/18 12/28/18 18:42 19:40 19:40 19:59 Temp 98.4 98.4 Pulse 95 98 Resp 20 B/P (MAP) 165/79 165/78 (107) Pulse Ox 96 O2 Delivery Room Air Room Air Room Air 12/28/18 12/28/18 12/28/18 12/29/18 20:34 21:41 22:45 01:12 Temp 98.6 98.6 Pulse 98 98 92 92 Resp 22 B/P (MAP) 165/78 165/78 179/84 (115) 179/84 Pulse Ox 98 O2 Delivery Room Air 12/29/18 12/29/18 12/29/18 12/29/18 03:10 05:51 05:51 07:00 Temp 98.5 98.8 98.5 98.8 Pulse 101 101 101 106 Resp 18 20 B/P (MAP) 158/85 (109) 158/85 158/85 142/65 (90) Pulse Ox 95 95 O2 Delivery Room Air Room Air 12/29/18 12/29/18 12/29/18 12/29/18 07:51 08:00 10:21 11:52 Temp 98.7 98.7 Pulse 110 Resp 20 B/P (MAP) 149/74 (99) Pulse Ox 96 95 96 O2 Delivery Room Air Room Air Room Air Room Air O2 Flow Rate 2.0 Intake and Output 12/28/18 12/28/18 12/29/18 15:00 23:00 07:00 Intake Total 160 ml 927 ml Output Total 1050 ml 950 ml 850 ml Balance -1050 ml -790 ml 77 ml DESTINI GEIGER MD Dec 29, 2018 12:01
--- NOTE | 2018-12-29 12:39 | PDOC ---
[facility] PROGRESS NOTE Chief Complaint Chief Complaint Respiratory failure, now extubated Fall ETOH withdrawal , severe Toxic encephalopathy Altered mental status, worse today Tachycardia Severe alcohol abuse Dysphagia Fever Hypernatremia Fall risk Mild aneurysmal dilation of the ascending aorta History of Present Illness History of Present Illness [id number] Patient seen and examined Discussed with his son and the RN Chart reviewed 12/28/18 Pt was examined in ICU Pt was sitting upright in chair Pt was pleasant and able to converse Rectal bag present Charts and labs reviewed D/w RN and Speech therapist Pt did not pass swallow test and was not fully cooperative K+ was 3.3, down from 3.6 Na+ was 145, down from 150 12/27/18 Pt seen and examined in ICU Pt was extubated 10 mins ago and is able to say a couple words but is still pleasantly confused Discussed with family the improved prognosis of the pt Charts and labs reviewed MRI from yesterday: Cortically based cerebral edema is noted involving bifrontal lobes, right greater than left, as well as symmetric involvement of the bilateral occipital and parietal lobes. Differential considerations would include subacute ischemia from global hyperperfusion. Of note, there is not significant involvement of the basal ganglia as typically seen with cerebral hypoxic injury. Findings may also be seen with posterior reversible encephalopathy syndrome DW RN 12/26/18 Pt seen and examined in ICU Pt remains sedated and intubated Pupils are equal round, reactive, and sensitive to light Charts and labs reviewed Talked to son about the pt's condition, stating that his CT results have changed and may indicate multiple infarcts but that we will be following up with an MRI to get conclusive results. Pt's son was understanding. AC 16/500/3.0/35% 5.0 PEEP AST 519, down from 1390 ALT 982, down from 1059 DW RN and son 12/25/18 Pt seen and examined in the ICU Sedated and intubated Was resting in bed Charts and labs reviewed AC 16/500/3.0/35% 5.0 PEEP AST 1390, ALT 1059 Poor prognosis DW RN 12/24/18 Pt seen and examined bedside INC soa, tachy, dark stool x 2 altered mental status Was resting in BED DW RN; Charts and labs reviewed Replace potassium Failed swallow test Poor prognosis Check serum osmolality 12/17/18 Pt seen and examined in ICU PT still sedated DW RN that she tried to wean the patient off of Precedex but he continued to be combative so she had to continue the sedation meds Consulted neurology to make sure there isn't other pathology causing his mental status change Charts and labs reviewed NA 143 12/16/18 Pt seen and examined in the ICU Pt is sedated with IV Precedex PEGGY RN Pt was combative in the morning Charts and labs reviewed Na: 140 12/15/18 Pt seen and examined in the ICU Pt's son was seen leaving the room Pt is still sedated with Precedex Pt requested pain medications Chart and labs reviewed Hyponatremia resolved Pt is bradycardic with rate of 50 D/w RN 12/14/18 Pt seen and examined in the ICU Pt still sedated with Precedex INR 1.1 Hyponatremia has resolved PEGGY RN Reviewed chart 12/13/18 Pt seen and examined in the ICU Pt was combative and trying to get out of bed all morning. Pt was given Ativan, Haldol, Benadryl, Zyprexa and finally Fentanyl for patient safety. He was comfortably snoring. Discussed with son who was glad to see the pt finally asleep. PEGGY RN Vitals/I&O Vitals/I&O: Vital Signs Date Time Temp Pulse Resp B/P (MAP) Pulse Ox O2 Delivery O2 Flow Rate FiO2 12/29/18 11:52 96 Room Air 12/29/18 10:21 98.7 110 20 149/74 (99) 98.7 12/29/18 08:00 2.0 I & O 12/28/18 12/28/18 12/29/18 15:00 23:00 07:00 Intake Total 160 ml 927 ml Output Total 1050 ml 950 ml 850 ml Balance -1050 ml -790 ml 77 ml Physical Exam Physical Exam: GENERAL: Propped up in seat resting quietly, HEENT: Oral cavity dry, poor dentition NECK: Supple. LUNGS: Clear anteriorly HEART: S1, S2. ABDOMEN: Obese, soft, no guarding, bowel sounds present. Rectal tube : Peng EXTREMITIES: No gross edema or cyanosis. Scabs left knee - no redness/warmth/swelling SKIN: Warm to touch. No signs of rash. some healing scraps/echymosis NEUROLOGIC: arouses, no response to questions RUE PICC - clean General: Alert, Cooperative, No acute distress Heart: Regular rate, Normal S1, Normal S2, No murmurs, Other Lungs: Other (dim in right base ) Abdomen: Normal bowel sounds, Soft, No tenderness, No masses (HEPATOMEGALY) Extremities: No cyanosis, Other (trace bilateral LE edema ) Skin: No rashes, No significant lesion Labs Labs: Laboratory Tests Test 12/29/18 02:45 12/29/18 10:00 Heparin Anti-Xa Act, Unfractionated < 0.10 IU/mL (0.30-0.70) > 1.10 IU/mL (0.30-0.70) Sodium Level 139 mmol/L (136-145) Potassium Level 3.4 mmol/L (3.5-5.1) Chloride Level 106 mmol/L (98-107) Carbon Dioxide Level 28 mmol/L (21-32) Anion Gap 5 (6-14) Blood Urea Nitrogen 14 mg/dL (8-26) Creatinine 0.8 mg/dL (0.7-1.3) Estimated GFR (Cockcroft-Gault) 99.6 BUN/Creatinine Ratio 18 (6-20) Glucose Level 145 mg/dL (70-99) Calcium Level 8.2 mg/dL (8.5-10.1) Phosphorus Level 3.0 mg/dL (2.6-4.7) Magnesium Level 1.8 mg/dL (1.8-2.4) Total Bilirubin 0.6 mg/dL (0.2-1.0) Aspartate Amino Transf (AST/SGOT) 75 U/L (15-37) Alanine Aminotransferase (ALT/SGPT) 393 U/L (16-63) Alkaline Phosphatase 42 U/L (46-116) Total Protein 5.5 g/dL (6.4-8.2) Albumin 2.6 g/dL (3.4-5.0) Albumin/Globulin Ratio 0.9 (1.0-1.7) Triglycerides Level 84 mg/dL (0-150) Review of Systems Review of Systems: Patient denies SOB or weakness. Assessment and Plan Assessmemt and Plan Problems Medical Problems: (1) Alcohol abuse Status: Acute (2) Closed head injury Status: Acute Respiratory failure, now extubated Fall ETOH withdrawal , severe Toxic encephalopathy Altered mental status, worse today Tachycardia Severe alcohol abuse Dysphagia Fever Hypernatremia Fall risk Mild aneurysmal dilation of the ascending aorta Plan: 1. Cardiac monitoring 2. Alcohol withdrawal Protocol 3. TPN 4. PT/OT/ST 5. DVT Prophylaxis 6. Home Meds 7. Full Code 8. Await further subspecialty input Total time 31 minutes Comment Review of Relevant I have reviewed the following items robert (where applicable) has been applied. Medications: Current Medications Medications (Trade) Dose Ordered Sig/Siddharth Route PRN Reason Start Time Stop Time Status Last Admin Dose Admin Potassium Acetate 100 meq/Potassium Phosphate 20 mmol/ Magnesium Sulfate 13 meq/Calcium Gluconate 10 meq/ Multivitamins 10 ml/Chromium/ Copper/Manganese/ Seleni/Zn 1 ml/ Thiamine HCl 100 mg/Folic Acid 1 mg/Total Parenteral Nutrition/Amino Acids/Dextrose/ Fat Emulsion Intravenous 1,992 ml @ 83 mls/hr TPN CONT IV 12/28/18 22:00 12/29/18 21:59 12/28/18 21:31 Ceftriaxone Sodium (Rocephin) 1 gm Q24H IVP 12/29/18 08:00 12/29/18 08:49 PAT SANABRIA III DO Dec 29, 2018 12:39
[2018-12-29] MEDS: HEPARIN 25,000UTS/500ML PREMIX 500 ML IV PRN (13:10)
--- NOTE | 2018-12-29 13:36 | NUR ---
SS following up with discharge planning. Pt accepted at [facility], ; fax [phone]. SS phoned and faxed clinical updates to [facility]. [facility] reported no beds at this time and reported that they would notify SS once bed is available. SS will continue to follow for discharge planning.
[2018-12-29] MEDS: TPN PER PHARMACY MC PRN (14:12)
[2018-12-29 14:27] VITALS: BP 165/82
--- NOTE | 2018-12-29 17:25 | NUR ---
Wound care: Patient seen per wound care consult. Patient dressing changed throughout the night. Skin tear is dressed with Xeroform gauze and kerlix. Dressing clean, dry, intact. No other wounds noted. Spoke with RN whom helping transfer patient back to bed. Will continue with same dressing every 2-3days. Dressing change instructions left in room. Will follow patient regarding wound care.
[2018-12-29 19:40] VITALS: BP 172/84
[2018-12-29] MEDS ORDERED: DEXTROSE 70% IV SCH ×12 (22:00)
[2018-12-29] MEDS ORDERED: TOTAL PARENTERAL NUTRITION IV SCH ×12 (22:00)
[2018-12-29] MEDS ORDERED: [UNRECOGNIZED DRUG - OTHER] IV SCH ×12 (22:00)
[2018-12-29] MEDS ORDERED: AMINO ACID IV SCH ×12 (22:00)
[2018-12-29 22:34] VITALS: BP 168/79
[2018-12-30] MEDS: hydrALAZINE 20 MG/ML VIAL. IVP SCH ×4 (00:02→18:47)
[2018-12-30] MEDS: HEPARIN for IV BOLUS 10,000 UNIT/10 ML VIAL. IV PRN (01:44)
[2018-12-30 03:24] VITALS: BP 151/73
[2018-12-30] MEDS: ENALAPRILAT 1.25 MG/ML VIAL. IVP SCH ×2 (05:43→16:06)
[2018-12-30 07:00] VITALS: BP 141/69
[2018-12-30] MEDS: IPRATRPIUM/ALBUTEROL 0.5/2.5MG 3 ML NEBU. NEB SCH ×4 (07:30→19:42)
--- NOTE | 2018-12-30 07:43 | PDOC ---
PROGRESS NOTES Chief Complaint Chief Complaint Acute hypoxic Respiratory failure, now extubated Fall ETOH withdrawal , severe Metabolic and Toxic encephalopathy Tachycardia Severe alcohol abuse Dysphagia Fever Hyponatremia Fall risk Mild aneurysmal dilation of the ascending aorta History of Present Illness History of Present Illness Mr Mckinney is a 58yo M w/ PMHx COPD, GERD, TIA, peripheral neuropathy, ETOH abuse, chronic pain, anxiety and depression, HTN, HLD, Afib, BPH, mitral insufficiency, s/p aortic valve replacement with mechanical valve who was admitted on on 12/10/18 after a fall down the stairs with a scalp laceration, found with sodium of 119 and active GI bleed requiring vitamin K, 4 units of FFP and 6 total units of blood. He also had respiratory failure, was intubated and was extubated on 12/27/18. Feeling better today. He is worried about a foul smell/taste when he receives his antibiotics and is concerned about his vision, feels it is not clear. 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 Tolerating TPN well. [id number] Patient seen and examined Discussed with his son and the RN Chart reviewed 12/28/18 Pt was examined in ICU Pt was sitting upright in chair Pt was pleasant and able to converse Rectal bag present Charts and labs reviewed D/w RN and Speech therapist Pt did not pass swallow test and was not fully cooperative K+ was 3.3, down from 3.6 Na+ was 145, down from 150 12/27/18 Pt seen and examined in ICU Pt was extubated 10 mins ago and is able to say a couple words but is still pleasantly confused Discussed with family the improved prognosis of the pt Charts and labs reviewed MRI from yesterday: Cortically based cerebral edema is noted involving bifrontal lobes, right greater than left, as well as symmetric involvement of the bilateral occipital and parietal lobes. Differential considerations would include subacute ischemia from global hyperperfusion. Of note, there is not significant involvement of the basal ganglia as typically seen with cerebral hypoxic injury. Findings may also be seen with posterior reversible encephalop athy syndrome DW RN 12/26/18 Pt seen and examined in ICU Pt remains sedated and intubated Pupils are equal round, reactive, and sensitive to light Charts and labs reviewed Talked to son about the pt's condition, stating that his CT results have changed and may indicate multiple infarcts but that we will be following up with an MRI to get conclusive results[place] [address]/3.0/35% 5.0 PEEP AST 519, down from 1390 ALT 982, down from 1059 DW RN and son 12/25/18 Pt seen and examined in the ICU Sedated and intubated Was [place] in [place] [address]/3.0/35% 5.0 PEEP AST 1390, ALT 1059 Poor prognosis DW RN 12/24/18 Pt seen and examined bedside INC soa, tachy, dark stool x 2 altered mental status Was resting in BED DW RN; Charts and labs reviewed Replace potassium Failed swallow test Poor prognosis Check serum osmolality 12/17/18 Pt seen and examined in ICU PT still sedated PEGGY RN that she tried to wean the patient off of Precedex but he continued to be combative so she had to continue the sedation meds Consulted neurology to make sure there isn't other pathology causing his mental status change Charts and labs reviewed NA 143 12/16/18 Pt seen and examined in the ICU Pt is sedated with IV Precedex PEGGY RN Pt was combative in the morning Charts and labs reviewed Na: 140 12/15/18 Pt seen and examined in the ICU Pt's son was seen leaving the room Pt is still sedated with Precedex Pt requested pain medications Chart and labs reviewed Hyponatremia resolved Pt is bradycardic with rate of 50 D/w RN 12/14/18 Pt seen and examined in the ICU Pt still sedated with Precedex INR 1.1 Hyponatremia has resolved PEGGY RN Reviewed chart 12/13/18 Pt seen and examined in the ICU Pt was combative and trying to get out of bed all morning. Pt was given Ativan, Haldol, Benadryl, Zyprexa and finally Fentanyl for patient safety. He was comfortably snoring. Discussed with son who was glad to see the pt finally asleep. PEGGY RN Vitals Vitals Vital Signs Date Time Temp Pulse Resp B/P (MAP) Pulse Ox O2 Delivery O2 Flow Rate FiO2 12/30/18 07:31 95 Room Air 12/30/18 05:44 112 152/83 12/30/18 03:24 99.7 20 99.7 12/29/18 08:00 2.0 Physical Exam Physical Exam GENERAL: Propped up in seat resting quietly, HEENT: Oral cavity dry, poor dentition NECK: Supple. LUNGS: Clear anteriorly HEART: S1, S2. ABDOMEN: Obese, soft, no guarding, bowel sounds present. Rectal tube : Peng EXTREMITIES: No gross edema or cyanosis. Scabs left knee - no redness/warmth/swelling SKIN: Warm to touch. No signs of rash. some healing scraps/echymosis NEUROLOGIC: arouses, no response to questions RUE PICC - clean General: Alert, Cooperative, No acute distress Heart: Regular rate, Normal S1, Normal S2, No murmurs, Other Lungs: Other (dim in right base ) Abdomen: Normal bowel sounds, Soft, No tenderness, No masses (HEPATOMEGALY) Extremities: No cyanosis, Other (trace bilateral LE edema ) Skin: No rashes, No significant lesion Labs LABS Laboratory Tests Test 12/29/18 10:00 12/29/18 17:00 12/30/18 01:00 Heparin Anti-Xa Act, Unfractionated > 1.10 IU/mL (0.30-0.70) < 0.10 IU/mL (0.30-0.70) < 0.10 IU/mL (0.30-0.70) Assessment and Plan Assessmemt and Plan Problems Medical Problems: (1) Alcohol abuse Status: Acute (2) Closed head injury Status: Acute Comment Review of Relevant I have reviewed the following items robert (where applicable) has been applied. Labs Laboratory Tests Test 12/28/18 09:45 12/29/18 02:45 12/29/18 10:00 12/29/18 17:00 Heparin Anti-Xa Act, Unfractionated 0.90 IU/mL (0.30-0.70) < 0.10 IU/mL (0.30-0.70) > 1.10 IU/mL (0.30-0.70) < 0.10 IU/mL (0.30-0.70) Sodium Level 139 mmol/L (136-145) Potassium Level 3.4 mmol/L (3.5-5.1) Chloride Level 106 mmol/L (98-107) Carbon Dioxide Level 28 mmol/L (21-32) Anion Gap 5 (6-14) Blood Urea Nitrogen 14 mg/dL (8-26) Creatinine 0.8 mg/dL (0.7-1.3) Estimated GFR (Cockcroft-Gault) 99.6 BUN/Creatinine Ratio 18 (6-20) Glucose Level 145 mg/dL (70-99) Calcium Level 8.2 mg/dL (8.5-10.1) Phosphorus Level 3.0 mg/dL (2.6-4.7) Magnesium Level 1.8 mg/dL (1.8-2.4) Total Bilirubin 0.6 mg/dL (0.2-1.0) Aspartate Amino Transf (AST/SGOT) 75 U/L (15-37) Alanine Aminotransferase (ALT/SGPT) 393 U/L (16-63) Alkaline Phosphatase 42 U/L (46-116) Total Protein 5.5 g/dL (6.4-8.2) Albumin 2.6 g/dL (3.4-5.0) Albumin/Globulin Ratio 0.9 (1.0-1.7) Triglycerides Level 84 mg/dL (0-150) Test 12/30/18 01:00 Heparin Anti-Xa Act, Unfractionated < 0.10 IU/mL (0.30-0.70) Laboratory Tests Test 12/29/18 10:00 12/29/18 17:00 12/30/18 01:00 Heparin Anti-Xa Act, Unfractionated > 1.10 IU/mL (0.30-0.70) < 0.10 IU/mL (0.30-0.70) < 0.10 IU/mL (0.30-0.70) Microbiology 12/24/18 Blood Culture - Final, Complete NO GROWTH AFTER 5 DAYS 12/20/18 Urine Culture - Final, Complete 12/20/18 Urine Culture Result 1 (AMARA) - Final, Complete Medications Current Medications Fentanyl Citrate (Fentanyl 2ml Vial) 50 mcg 1X ONCE IV Last administered on 12/10/18at 20:03; Start 12/10/18 at 19:15; Stop 12/10/18 at 19:16; Status DC Iohexol (Omnipaque 300 Mg/ml) 75 ml 1X ONCE IV Last administered on 12/10/18at 19:43; Start 12/10/18 at 19:15; Stop 12/10/18 at 19:16; Status DC Sodium Chloride 1,000 ml @ 1,000 mls/hr 1X ONCE IV Last administered on 12/10/18at 19:45; Start 12/10/18 at 19:45; Stop 12/10/18 at 20:44; Status DC Morphine Sulfate (Morphine Sulfate) 2 mg PRN Q2HR PRN IV PAIN Last administered on 12/11/18 12:03; Start 12/10/18 at 20:15; Stop 12/11/18 at 20:14; Status DC Sodium Chloride 1,000 ml @ 100 mls/hr Q10H IV Last administered on 12/11/18at 08:10; Start 12/10/18 at 20:07; Stop 12/11/18 at 12:21; Status DC Diphtheria/ Tetanus/Acell Pertussis (Boostrix) 0.5 ml ONCE ONCE VAX IM Last administered on 12/10/18at 21:07; Start 12/10/18 at 20:15; Stop 12/10/18 at 20:16; Status DC Ondansetron HCl (Zofran) 4 mg PRN Q6HRS PRN IV NAUSEA/VOMITING 1ST CHOICE Last administered on 12/21/18 03:27; Start 12/11/18 at 05:30 Multivitamins (Thera M Plus) 1 tab DAILY PO Last administered on 12/12/18 08:14; Start 12/11/18 at 09:00; Stop 12/13/18 at 11:25; Status DC Folic Acid (Folic Acid) 1 mg DAILY PO Last administered on 12/12/18 08:14; St art 12/11/18 at 09:00; Stop 12/13/18 at 11:25; Status DC Chlordiazepoxide (Librium) 50 mg PRN Q1HR PRN PO For CIWA 8-14 2ND CHOICE Last administered on 12/18/18 18:03; Start 12/11/18 at 05:30 Chlordiazepoxide (Librium) 100 mg PRN Q1HR PRN PO For CIWA 15+ 2ND CHOICE Last administered on 12/13/18at 01:11; Start 12/11/18 at 05:30 Lorazepam (Ativan) 4 mg PRN Q1HR PRN PO For CIWA 8-14 Last administered on 12/13/18at 02:48; Start 12/11/18 at 05:30 Lorazepam (Ativan) 8 mg PRN Q1HR PRN PO For CIWA 15 or greater; Start 12/11/18 at 05:30 Lorazepam (Ativan Inj) 2 mg PRN Q1HR PRN IV For CIWA 8-14 Last administered on 12/30/18 05:44; Start 12/11/18 at 05:30 Lorazepam (Ativan Inj) 4 mg PRN Q1HR PRN IV For CIWA 15 or greater Last administered on 12/26/18 22:11; Start 12/11/18 at 05:30 Haloperidol Lactate (Haldol Inj) 5 mg PRN Q4HRS PRN IVP Hallucinatns,Confusn,Delirium Last administered on 12/27/18 19:18; Start 12/11/18 at 05:30 Diphenhydramine HCl (Benadryl) 25 mg PRN Q15MIN PRN IVP EPS symptoms 2'Haldol admin Last administered on 12/27/18 16:58; Start 12/11/18 at 05:30 Clonidine HCl (Catapres) 0.1 mg PRN Q1HR PRN PO SBP > 180 or DBP > 100, MRX3; Start 12/11/18 at 05:30 Sodium Chloride 1,000 ml @ 60 mls/hr [id number] IV Last administered on 12/21/18 07:26; Start 12/11/18 at 13:00; Stop 12/22/18 at 14:53; Status DC Sodium Chloride 150 ml @ 50 mls/hr 1X ONCE IV Last administered on 12/11/18at 13:48; Start 12/11/18 at 13:00; Stop 12/11/18 at 15:59; Status DC Lisinopril (Prinivil) 20 mg DAILY PO Last administered on 12/19/18 08:00; Start 12/11/18 at 14:00; Stop 12/21/18 at 15:19; Status DC Oxycodone/ Acetaminophen (Percocet 7.5/ 325) 1 tab PRN Q6HRS PRN PO MODERATE TO SEVERE PAIN Last administered on 12/19/18 06:19; Start 12/11/18 at 13:30 Calcium Carbonate/ Glycine (Oscal) 500 mg TIDAFTMEAL PO Last administered on 12/19/18 17:22; Start 12/12/18 at 13:00 Ziprasidone (Geodon Im) 20 mg 1X ONCE IM ; Start 12/13/18 at 05:00; Stop 12/13/18 at 18:51; Status DC Lorazepam 100 mg/ Sodium Chloride 100 ml @ 2 mls/hr CONT PRN IV SEDATION Last administered on 12/13/18at 19:56; Start 12/13/18 at 07:00; Stop 12/18/18 at 16:33; Status DC Olanzapine (ZyPREXA IM) 10 mg PRN Q8HRS PRN IM AGITATION Last administered on 12/19/18at 00:05; Start 12/13/18 at 08:30 Olanzapine (ZyPREXA IM) 10 mg STK-MED ONCE IM ; Start 12/13/18 at 08:37; Stop 12/13/18 at 08:38; Status DC Fentanyl Citrate (Fentanyl 2ml Vial) 75 mcg 1X ONCE IV ; Start 12/13/18 at 09:45; Stop 12/13/18 at 19:20; Status DC Fentanyl Citrate (Fentanyl 2ml Vial) 100 mcg STK-MED ONCE .ROUTE ; Start 12/13/18 at 09:47; Stop 12/13/18 at 09:48; Status DC Fentanyl Citrate (Fentanyl 2ml Vial) 75 mcg PRN Q30MIN PRN IV PAIN Last administered on 12/27/18at 23:30; Start 12/13/18 at 10:00 Multivitamins 10 ml/Thiamine HCl 100 mg/Folic Acid 1 mg/Sodium Chloride 1,011.2 ml @ 100 mls/ hr DAILY IV Last administered on 12/18/18at 08:55; Start 12/14/18 at 12:00; Stop 12/18/18 at 19:07; Status DC Enoxaparin Sodium (Lovenox 80mg Syringe) 80 mg Q12HR SQ Last administered on 12/21/18at 07:50; Start 12/13/18 at 14:30; Stop 12/21/18 at 12:56; Status DC Warfarin Sodium (Coumadin Per Pharmacy) 1 each PRN DAILY PRN MC SEE COMMENTS Last administered on 12/24/18at 11:27; Start 12/13/18 at 14:15; Stop 12/24/18 at 16:10; Status DC Warfarin Sodium (Coumadin) 7.5 mg 1X WARF ONCE PO ; Start 12/13/18 at 16:00; Stop 12/13/18 at 16:01; Status DC Nicotine (Nicoderm Cq 21mg) 1 patch DAILY TD Last administered on 12/29/18at 08:49; Start 12/14/18 at 09:00 Dexmedetomidine HCl 400 mcg/ Sodium Chloride 100 ml @ 0 mls/hr CONT PRN IV PER PROTOCOL Last administered on 12/18/18at 00:12; Start 12/14/18 at 01:45; Stop 12/18/18 at 16:33; Status DC Sodium Chloride 500 ml @ 500 mls/hr 1X PRN PRN IV SEE COMMENTS; Start 12/14/18 at 01:45; Stop 12/20/18 at 11:56; Status DC Atropine Sulfate (ATROPINE 0.5mg SYRINGE) 0.5 mg PRN Q5MIN PRN IV SEE COMMENTS; Start 12/14/18 at 01:45; Stop 12/20/18 at 11:55; Status DC Nicotine (Nicoderm Cq 21mg) 1 patch STK-MED ONCE TD ; Start 12/14/18 at 01:57; Stop 12/14/18 at 01:57; Status DC Lorazepam (Ativan) 1 mg BID PO Last administered on 12/19/18at 08:00; Start 12/14/18 at 09:00 Warfarin Sodium (Coumadin) 5 mg DAILY16 PO ; Start 12/14/18 at 16:00; Stop 12/14/18 at 09:21; Status DC Warfarin Sodium (Coumadin) 7.5 mg 1X WARF ONCE PO ; Start 12/14/18 at 16:00; Stop 12/14/18 at 16:01; Status DC Enalaprilat (Vasotec Inj) 1.25 mg Q8HRS IVP Last administered on 12/30/18at 05:43; Start 12/14/18 at 15:00 Nicardipine HCl 50 mg/Sodium Chloride 250 ml @ 25 mls/hr CONT PRN IV SEE I/O RECORD Last administered on 12/16/18at 09:58; Start 12/14/18 at 17:45; Stop 12/18/18 at 16:33; Status DC Nicardipine HCl 50 mg/Sodium Chloride 250 ml @ 25 mls/hr CONT PRN IV SEE I/O RECORD; Start 12/14/18 at 18:00; Status UNV Warfarin Sodium (Coumadin) 7.5 mg 1X WARF ONCE PO ; Start 12/15/18 at 16:00; Stop 12/15/18 at 16:01; Status DC Warfarin Sodium (Coumadin - No Dose Today) 1 each 1X WARF ONCE MC ; Start 12/16/18 at 16:00; Stop 12/16/18 at 16:01; Status DC Warfarin Sodium (Coumadin) 7.5 mg 1X WARF ONCE PO Last administered on 12/18/18at 08:54; Start 12/17/18 at 16:00; Stop 12/17/18 at 16:01; Status DC Ceftriaxone Sodium (Rocephin) 1 gm Q24H IVP Last administered on 12/20/18at 12:08; Start 12/18/18 at 12:30; Stop 12/20/18 at 15:14; Status DC Metoprolol Tartrate (Lopressor) 25 mg BID PO Last administered on 12/19/18at 08:01; Start 12/18/18 at 12:30 Acetaminophen/ Codeine Phosphate (Tylenol #3) 1 tab PRN Q6HRS PRN PO PAIN MILD TO MOD; Start 12/18/18 at 12:00; Stop 12/18/18 at 12:55; Status DC Lactobacillus Rhamnosus (Culturelle) 1 cap BID PO Last administered on 12/19/18at 08:00; Start 12/18/18 at 21:00; Stop 12/24/18 at 11:17; Status DC Acetaminophen (Tylenol) 650 mg PRN Q6HRS PRN PO FEVER Last administered on 12/19/18at 17:23; Start 12/18/18 at 13:00 Warfarin Sodium (Coumadin) 7.5 mg 1X WARF ONCE PO Last administered on 12/18/18at 18:03; Start 12/18/18 at 16:00; Stop 12/18/18 at 16:11; Status DC Albuterol/ Ipratropium (Duoneb) 3 ml 1X ONCE NEB Last administered on 12/19/18at 07:15; Start 12/19/18 at 07:15; Stop 12/19/18 at 07:16; Status DC Ziprasidone (Geodon Im) 10 mg 1X ONCE IM Last administered on 12/19/18at 07:42; Start 12/19/18 at 07:15; Stop 12/19/18 at 07:16; Status DC Warfarin Sodium (Coumadin) 7.5 mg 1X WARF ONCE PO Last administered on 12/19/18 17:23; Start 12/19/18 at 16:00; Stop 12/19/18 at 16:01; Status DC Potassium Chloride (Klor-Con) 40 meq 1X ONCE PO Last administered on 12/19/18at 16:12; Start 12/19/18 at 14:00; Stop 12/19/18 at 14:01; Status DC Potassium Chloride (Klor-Con) 20 meq DAILYWBKFT PO ; Start 12/20/18 at 08:00; Stop 12/28/18 at 08:35; Status DC Doxycycline Hyclate (Vibra-Tab) 100 mg BID PO Last administered on 12/19/18at 17:22; Start 12/19/18 at 17:30; Stop 12/19/18 at 17:57; Status DC Doxycycline Hyclate 100 mg/ Dextrose 100 ml @ 50 mls/hr Q12HR IV Last administered on 12/23/18at 22:17; Start 12/19/18 at 21:00; Stop 12/24/18 at 10:15; Status DC Metoprolol Tartrate (Lopressor Vial) 5 mg PRN Q6HRS PRN IVP HYPERTENSION Last administered on 12/24/18at 07:22; Start 12/19/18 at 18:00 Scopolamine (Transderm-Scop) 1 patch Q3DAYS TD Last administered on 12/29/18at 08:49; Start 12/20/18 at 09:00 Potassium Chloride/Water 100 ml @ 100 mls/hr Q1H IV Last administered on 12/20/18at 10:36; Start 12/20/18 at 06:00; Stop 12/20/18 at 09:59; Status DC Potassium Chloride (Klor-Con) 40 meq 1X ONCE PO ; Start 12/20/18 at 08:00; Stop 12/20/18 at 08:01; Status DC Acetaminophen (Tylenol Supp) 650 mg PRN Q6HRS PRN MS MILD PAIN / TEMP Last administered on 12/28/18at 21:28; Start 12/20/18 at 07:15 Warfarin Sodium (Coumadin) 7.5 mg 1X WARF ONCE PO ; Start 12/20/18 at 16:00; Stop 12/20/18 at 16:01; Status DC Hydralazine HCl (Apresoline Inj) 10 mg PRN Q4HRS PRN IVP ELEVATED BP, SEE COMMENTS Last administered on 12/22/18at 11:07; Start 12/20/18 at 14:30 Potassium Chloride (Klor-Con) 40 meq 1X ONCE PO ; Start 12/20/18 at 14:30; Stop 12/20/18 at 14:41; Status DC Potassium Chloride (Klor-Con) 20 meq DAILYWBKFT PO ; Start 12/21/18 at 08:00; Stop 12/25/18 at 11:25; Status DC Albuterol/ Ipratropium (Duoneb) 3 ml RTQID NEB Last administered on 12/30/18at 07:30; Start 12/20/18 at 16:00 Piperacillin Sod/ Tazobactam Sod 3.375 gm/Sodium Chloride 50 ml @ 100 mls/hr Q6HRS IV Last administered on 12/24/18at 05:09; Start 12/20/18 at 16:00; Stop 12/24/18 at 10:15; Status DC Amino Acids/ Glycerin/ Electrolytes 1,000 ml @ 75 mls/hr [id number] IV Last administered on 12/25/18at 09:05; Start 12/21/18 at 13:00; Stop 12/25/18 at 21:59; Status DC Warfarin Sodium (Coumadin) 1 mg 1X WARF ONCE PO ; Start 12/21/18 at 16:00; Stop 12/21/18 at 16:01; Status DC Sodium Chloride 1,000 ml @ 75 mls/hr 1X ONCE IV Last administered on 12/21at 13:49; Start 12/21/18 at 13:15; Stop 12/22/18 at 02:34; Status DC Potassium Chloride/Water 100 ml @ 100 mls/hr Q1H IV Last administered on 12/22/18at 11:03; Start 12/22/18 at 06:00; Stop 12/22/18 at 09:59; Status DC Sodium Chloride 1,000 ml @ 75 mls/hr 1X ONCE IV Last administered on 12/22/18at 14:49; Start 12/22/18 at 14:30; Stop 12/23/18 at 03:49; Status DC Potassium Chloride 20 meq/ Sodium Chloride 1,010 ml @ 75 mls/hr 1X ONCE IV Last administered on 12/22/18at 17:51; Start 12/22/18 at 16:00; Stop 12/23/18 at 05:27; Status DC Hydralazine HCl (Apresoline Inj) 10 mg Q6HRS IVP Last administered on 12/30/18at 05:44; Start 12/22/18 at 18:00 Potassium Chloride/Water 100 ml @ 100 mls/hr Q1H IV Last administered on 12/23/18at 14:01; Start 12/23/18 at 06:00; Stop 12/23/18 at 09:59; Status DC Potassium Chloride/Water 50 ml @ 50 mls/hr Q1H IV ; Start 12/23/18 at 11:15; Stop 12/23/18 at 13:14; Status UNV Potassium Chloride/Water 100 ml @ 100 mls/hr Q1H IV ; Start 12/23/18 at 11:30; Stop 12/23/18 at 13:04; Status DC Warfarin Sodium (Coumadin - No Dose Today) 1 each 1X WARF ONCE MC Last administered on 12/23/18at 16:00; Start 12/23/18 at 16:00; Stop 12/23/18 at 16:01; Status DC Pantoprazole Sodium (PROTONIX VIAL for IV PUSH) 40 mg DAILYAC IVP Last administered on 12/23/18at 15:21; Start 12/23/18 at 15:00; Stop 12/24/18 at 10:43; Status DC Cefepime HCl (Maxipime) 2 gm Q8HRS IVP Last administered on 12/29/18at 05:51; Start 12/24/18 at 10:00; Stop 12/29/18 at 07:57; Status DC Metronidazole 100 ml @ 100 mls/hr Q8HRS IV Last administered on 12/29/18at 05:51; Start 12/24/18 at 10:00; Stop 12/29/18 at 07:57; Status DC Daptomycin 460 mg/ Sodium Chloride 50 ml @ 100 mls/hr Q24H IV Last administered on 12/27/18at 10:58; Start 12/24/18 at 11:00; Stop 12/28/18 at 11:10; Status DC Micafungin Sodium 100 mg/Dextrose 100 ml @ 100 mls/hr Q24H IV Last administered on 12/28/18at 08:58; Start 12/24/18 at 12:00; Stop 12/28/18 at 11:10; Status DC Pantoprazole Sodium 80 mg/ Sodium Chloride 100 ml @ 10 mls/hr Q10H IV Last administered on 12/26/18at 13:23; Start 12/24/18 at 11:00; Stop 12/26/18 at 15:12; Status DC Lorazepam (Ativan) 1 mg PRN Q6HRS PRN PO ANXIETY / AGITATION 1ST CHOICE; Start 12/24/18 at 10:45 Ondansetron HCl (Zofran) 4 mg PRN Q6HRS PRN IV NAUSEA/VOMITING; Start 12/24/18 at 10:45; Stop 12/24/18 at 10:52; Status DC Info (Icu Electrolyte Protocol) 1 ea DAILY MC Last administered on 12/25/18at 08:50; Start 12/25/18 at 09:00; Stop 12/28/18 at 17:05; Status DC Sodium Chloride (Normal Saline Flush) 3 ml QSHIFT PRN IV AFTER MEDS AND BLOOD DRAWS; Start 12/24/18 at 10:45 Sodium Chloride 1,000 ml @ 2,130 mls/hr Q29M IV Last administered on 12/24/18at 12:13; Start 12/24/18 at 10:50; Stop 12/24/18 at 11:50; Status DC Sodium Chloride 500 ml @ 1,000 mls/hr PRN Q30MIN PRN IV SEE COMMENTS; Start 12/24/18 at 11:00 Norepinephrine Bitartrate 250 ml @ 0 mls/hr CONT PRN IV SEE COMMENTS Last administered on 12/24/18at 20:22; Start 12/24/18 at 11:00; Stop 12/27/18 at 09:21; Status DC Dobutamine HCl/ Dextrose 250 ml @ 0 mls/hr CONT PRN IV SEE COMMENTS; Start 12/24/18 at 11:00; Stop 12/28/18 at 17:04; Status DC Sodium Bicarbonate (Sodium Bicarb Adult 8.4% Syr) 100 meq 1X ONCE IV Last administered on 12/24/18at 11:16; Start 12/24/18 at 11:15; Stop 12/24/18 at 11:16; Status DC Phytonadione (Vitamin K Ampule) 5 mg 1X ONCE SQ Last administered on 12/24/18at 12:24; Start 12/24/18 at 11:15; Stop 12/24/18 at 11:22; Status DC Succinylcholine Chloride (Anectine) 200 mg STK-MED ONCE .ROUTE ; Start 12/24/18 at 11:20; Stop 12/24/18 at 11:21; Status DC Midazolam HCl (Versed) 5 mg STK-MED ONCE .ROUTE ; Start 12/24/18 at 11:21; Stop 12/24/18 at 11:21; Status DC Warfarin Sodium (Coumadin - No Dose Today) 1 each 1X WARF ONCE MC ; Start 12/24/18 at 16:00; Stop 12/24/18 at 22:25; Status DC Atropine Sulfate (ATROPINE 1mg SYRINGE) 1 mg STK-MED ONCE .ROUTE ; Start 12/24/18 at 11:30; Stop 12/24/18 at 11:30; Status DC Epinephrine HCl (Adrenalin) 1 mg STK-MED ONCE .ROUTE ; Start 12/24/18 at 11:30; Stop 12/24/18 at 11:30; Status DC Succinylcholine Chloride (Anectine) 60 mg 1X ONCE IV Last administered on 12/24/18at 12:04; Start 12/24/18 at 11:45; Stop 12/24/18 at 11:46; Status DC Midazolam HCl (Versed) 2 mg 1X ONCE IV Last administered on 12/24/18at 11:30; Start 12/24/18 at 11:45; Stop 12/24/18 at 11:46; Status DC Epinephrine HCl (EPINEPHrine SYRINGE) 1 mg 1X ONCE IV ; Start 12/24/18 at 11:45; Stop 12/24/18 at 11:46; Status DC Sodium Chloride 1,000 ml @ 1,000 mls/hr 1X ONCE IV ; Start 12/24/18 at 11:45; Stop 12/24/18 at 12:44; Status DC Midazolam HCl 100 ml @ 5 mls/hr CONT PRN IV SEE I/O RECORD Last administered on 12/25/18at 23:40; Start 12/24/18 at 12:00; Stop 12/27/18 at 09:21; Status DC Fentanyl Citrate 30 ml @ 0 mls/hr CONT PRN IV SEE PROTOCOL Last administered on 12/26/18at 05:26; Start 12/24/18 at 12:00; Stop 12/28/18 at 17:06; Status DC Midazolam HCl (Versed) 2 mg 1X ONCE IV ; Start 12/24/18 at 12:15; Stop 12/24/18 at 12:16; Status DC Metoclopramide HCl (Reglan Vial) 10 mg 1X ONCE IVP Last administered on 12/24/18at 15:00; Start 12/24/18 at 12:45; Stop 12/24/18 at 12:46; Status DC Vasopressin 40 unit/Dextrose 102 ml @ 6 mls/hr CONT PRN IV SEE I/O RECORD Last administered on 12/26/18at 12:38; Start 12/24/18 at 13:00; Stop 12/27/18 at 09:21; Status DC Albumin Human 500 ml @ As Directed STK-MED ONCE IV ; Start 12/24/18 at 14:37; Stop 12/24/18 at 14:37; Status DC Albumin Human 500 ml @ 125 mls/hr 1X ONCE IV Last administered on 12/24/18at 14:39; Start 12/24/18 at 14:45; Stop 12/24/18 at 18:44; Status DC Digoxin (Lanoxin) 500 mcg 1X ONCE IV Last administered on 12/24/18at 15:30; Start 12/24/18 at 15:30; Stop 12/24/18 at 15:31; Status DC Digoxin (Lanoxin) 500 mcg STK-MED ONCE .ROUTE ; Start 12/24/18 at 15:07; Stop 12/24/18 at 15:08; Status DC Phytonadione (Vitamin K Ampule) 10 mg 1X ONCE SQ Last administered on 12/24/18at 17:36; Start 12/24/18 at 15:45; Stop 12/24/18 at 15:49; Status DC Amiodarone HCl 150 mg/Dextrose 103 ml @ 618 mls/hr 1X ONCE IV Last administered on 12/24/18at 17:09; Start 12/24/18 at 16:00; Stop 12/24/18 at 16:09; Status DC Amiodarone HCl 900 mg/Dextrose 518 ml @ 0 mls/hr CONT PRN IV SEE I/O RECORD Last administered on 12/24/18at 17:55; Start 12/24/18 at 16:00; Stop 12/24/18 at 17:55; Status DC Phytonadione (Vitamin K Ampule) 10 mg 1X ONCE SQ ; Start 12/24/18 at 17:00; Stop 12/24/18 at 17:01; Status DC Potassium Chloride/Water 50 ml @ 50 mls/hr Q1H IV Last administered on 12/25/18at 12:37; Start 12/25/18 at 09:00; Stop 12/25/18 at 12:59; Status DC Potassium Chloride/Water 50 ml @ 0 mls/hr Q1H IV ; Start 12/25/18 at 08:30; Stop 12/25/18 at 11:31; Status UNV Info (Tpn Per Pharmacy) 1 each PRN DAILY PRN MC SEE COMMENTS Last administered on 12/29/18at 14:12; Start 12/25/18 at 09:45 Sodium Chloride 50 meq/Potassium Acetate 70 meq/ Potassium Phosphate 13.6 mmol/Magnesium Sulfate 10 meq/ Calcium Gluconate 10 meq/ Multivitamins 10 ml/Chromium/ Copper/Manganese/ Seleni/Zn 1 ml/ Total Parenteral Nutrition/Amino Acids/Dextrose/ Fat Emulsion Intravenous 1,512 ml @ 63 mls/hr TPN CONT IV Last administered on 12/25/18at 21:37; Start 12/25/18 at 22:00; Stop 12/26/18 at 21:59; Status DC Amiodarone HCl 900 mg/Dextrose 518 ml @ 17 mls/hr CONT PRN IV .; Start 12/25/18 at 20:00; Status Cancel Amiodarone HCl 900 mg/Dextrose 518 ml @ 0 mls/hr CONT PRN IV SEE I/O RECORD Last administered on 12/25/18at 20:15; Start 12/25/18 at 20:15; Stop 12/25/18 at 20:15; Status DC Aspirin (Aspirin Rectal Supp) 300 mg DAILY MS Last administered on 12/28/18at 09:20; Start 12/26/18 at 11:00 Amiodarone HCl 900 mg/Dextrose 518 ml @ 33 mls/hr CONT PRN IV SEE I/O RECORD; Start 12/26/18 at 12:45; Stop 12/27/18 at 01:06; Status DC Potassium Acetate 70 meq/Potassium Phosphate 17 mmol/ Magnesium Sulfate 10 meq/Calcium Gluconate 10 meq/ Multivitamins 10 ml/Chromium/ Copper/Manganese/ Seleni/Zn 1 ml/ Thiamine HCl 100 mg/Folic Acid 1 mg/Total Parenteral Nutrition/Amino Acids/Dextrose/ Fat Emulsion Intravenous 1,992 ml @ 83 mls/hr TPN CONT IV Last administered on 12/26/18at 21:53; Start 12/26/18 at 22:00; Stop 12/27/18 at 21:59; Status DC Heparin Sodium/ Dextrose 500 ml @ 18.72 mls/ hr CONT PRN IV PER PROTOCOL Last administered on 12/29/18at 13:10; Start 12/26/18 at 14:45 Heparin Sodium (Porcine) (Heparin Sodium) 1,950 unit PRN Q6HRS PRN IV FOR UFH LEVEL LESS THAN 0.2 Last administered on 12/30/18at 01:44; Start 12/26/18 at 14:45 Pantoprazole Sodium (PROTONIX VIAL for IV PUSH) 40 mg BID IVP Last administered on 12/29/18at 20:47; Start 12/26/18 at 21:00 Amiodarone HCl 450 mg/Dextrose 259 ml @ 17 mls/hr CONT PRN IV SEE I/O RECORD Last administered on 12/27/18at 19:19; Start 12/27/18 at 02:00 Potassium Acetate 85 meq/Potassium Phosphate 17 mmol/ Magnesium Sulfate 10 meq/Calcium Gluconate 10 meq/ Multivitamins 10 ml/Chromium/ Copper/Manganese/ Seleni/Zn 1 ml/ Thiamine HCl 100 mg/Folic Acid 1 mg/Total Parenteral Nutrition/Amino Acids/Dextrose/ Fat Emulsion Intravenous 1,992 ml @ 83 mls/hr TPN CONT IV Last administered on 12/27/18at 21:33; Start 12/27/18 at 22:00; Stop 12/28/18 at 21:59; Status DC Potassium Chloride/Water 100 ml @ 100 mls/hr Q1H IV Last administered on 12/28/18at 10:21; Start 12/28/18 at 09:00; Stop 12/28/18 at 10:59; Status DC Potassium Chloride/Water 50 ml @ 50 mls/hr DAILY IV ; Start 12/28/18 at 09:00; Status UNV Potassium Acetate 100 meq/Potassium Phosphate 20 mmol/ Magnesium Sulfate 13 meq/Calcium Gluconate 10 meq/ Multivitamins 10 ml/Chromium/ Copper/Manganese/ Seleni/Zn 1 ml/ Thiamine HCl 100 mg/Folic Acid 1 mg/Total Parenteral Nutrition/Amino Acids/Dextrose/ Fat Emulsion Intravenous 1,992 ml @ 83 mls/hr TPN CONT IV Last administered on 12/28/18at 21:31; Start 12/28/18 at 22:00; Stop 12/29/18 at 21:59; Status DC Ceftriaxone Sodium (Rocephin) 1 gm Q24H IVP Last administered on 12/29/18at 08:49; Start 12/29/18 at 08:00 Loperamide HCl (Immodium Oral Susp) 2 mg PRN Q30MIN PRN PEG DIARRHEA; Start 12/29/18 at 08:00 Potassium Acetate 120 meq/Potassium Phosphate 16 mmol/ Magnesium Sulfate 13 meq/Calcium Gluconate 10 meq/ Multivitamins 10 ml/Chromium/ Copper/Manganese/ Seleni/Zn 1 ml/ Thiamine HCl 100 mg/Folic Acid 1 mg/Sodium Chloride 20 meq/ Total Parenteral Nutrition/Amino Acids/Dextrose/ Fat Emulsion Intravenous 1,992 ml @ 83 mls/hr TPN CONT IV Last administered on 12/29/18at 22:17; Start 12/29/18 at 22:00; Stop 12/30/18 at 21:59 Active Scripts Active Reported Lorazepam 1 Mg Tablet 1 Tab PO BID Percocet 7.5-325 Mg Tablet (Oxycodone/Acetaminophen) 1 Each Tablet 1 Tab PO PRN Q6HRS PRN Coumadin (Warfarin Sodium) 5 Mg Tablet 1 Tab PO DAILY Lisinopril 20 Mg Tablet 1 Tab PO DAILY Vitals/I & O Vital Sign - Last 24 Hours 12/29/18 12/29/18 12/29/18 12/29/18 07:51 08:00 10:21 11:52 Temp 98.7 98.7 Pulse 110 Resp 20 B/P (MAP) 149/74 (99) Pulse Ox 96 95 96 O2 Delivery Room Air Room Air Room Air Room Air O2 Flow Rate 2.0 12/29/18 12/29/18 12/29/18 12/29/18 13:12 14:27 14:48 16:21 Temp 98.6 98.6 Pulse 110 110 110 Resp 20 B/P (MAP) 149/74 165/82 (109) 165/82 Pulse Ox 96 96 O2 Delivery Room Air Room Air 12/29/18 12/29/18 12/29/18 12/29/18 18:00 19:21 19:40 20:00 Temp 98.3 98.3 Pulse 110 104 Resp 22 B/P (MAP) 165/82 172/84 (113) Pulse Ox 96 96 O2 Delivery Room Air Room Air Room Air 12/29/18 12/29/18 12/30/18 12/30/18 22:16 22:34 00:02 03:24 Temp 98.4 99.7 98.4 99.7 Pulse 109 108 108 114 Resp 20 20 B/P (MAP) 168/79 168/79 (108) 168/79 151/73 (99) Pulse Ox 96 94 O2 Delivery Room Air Room Air 12/30/18 12/30/18 12/30/18 05:43 05:44 07:31 Pulse 112 112 B/P (MAP) 152/83 152/83 Pulse Ox 95 O2 Delivery Room Air Intake and Output 12/29/18 12/29/18 12/30/18 15:00 23:00 07:00 Intake Total 0 ml 0 ml Output Total 2400 ml 1100 ml Balance -2400 ml -1100 ml PREMA AVITIA MD Dec 30, 2018 07:43
[2018-12-30 08:25] LABS: BASO # 0.1 x10^3/uL (0.0-0.2); BASO % 2 % (0-3); EOS # 0.3 x10^3/uL (0.0-0.7); EOS % 3 % (0-3); HEMATOCRIT 34.3 % (39.0-53.0); HEMOGLOBIN 11.6 g/dL (13.0-17.5); LYMPH # 1.1 x10^3/uL (1.0-4.8); LYMPH % 11 % (24-48); MEAN CORPUSCULAR HEMOGLOBIN 30 pg (25-35); MEAN CORPUSCULAR HGB CONC 34 g/dL (31-37); MEAN CORPUSCULAR VOLUME 87 fL (79-100); MONO # 1.2 x10^3/uL (0.0-1.1); MONO % 12 % (0-9); NEUT % 72 % (31-73); PLATELET COUNT 383 x10^3/uL (140-400); RED BLOOD COUNT 3.93 x10^6/uL (4.30-5.70); RED CELL DISTRIBUTION WIDTH 17.6 % (11.5-14.5); WHITE BLOOD COUNT 9.7 x10^3/uL (4.0-11.0)
--- NOTE | 2018-12-30 08:58 | PDOC ---
Infectious Disease Note Subjective Subjective sleepy, arousable, no complaints ROS ROS no n/v/d/sob Vital Sign Vital Signs Vital Signs Date Time Temp Pulse Resp B/P (MAP) Pulse Ox O2 Delivery O2 Flow Rate FiO2 12/30/18 07:31 95 Room Air 12/30/18 07:00 99.7 119 18 141/69 (93) 99.7 12/29/18 08:00 2.0 Physical Exam PHYSICAL EXAM GENERAL: resting quietly, HEENT: Oral cavity dry, poor dentition NECK: Supple. LUNGS: Clear anteriorly HEART: S1, S2. ABDOMEN: Obese, soft, no guarding, bowel sounds present. Rectal tube : Peng EXTREMITIES: No gross edema or cyanosis. Scabs left knee - no redness/warmth/swelling SKIN: Warm to touch. No signs of rash. some healing scraps/echymosis NEUROLOGIC: arouses, no response to questions RUE PICC - clean Labs Lab Laboratory Tests Test 12/29/18 10:00 12/29/18 17:00 12/30/18 01:00 12/30/18 08:10 Heparin Anti-Xa Act, Unfractionated > 1.10 IU/mL (0.30-0.70) < 0.10 IU/mL (0.30-0.70) < 0.10 IU/mL (0.30-0.70) 0.14 IU/mL (0.30-0.70) White Blood Count 9.7 x10^3/uL (4.0-11.0) Red Blood Count 3.93 x10^6/uL (4.30-5.70) Hemoglobin 11.6 g/dL (13.0-17.5) Hematocrit 34.3 % (39.0-53.0) Mean Corpuscular Volume 87 fL (79-100) Mean Corpuscular Hemoglobin 30 pg (25-35) Mean Corpuscular Hemoglobin Concent 34 g/dL (31-37) Red Cell Distribution Width 17.6 % (11.5-14.5) Platelet Count 383 x10^3/uL (140-400) Neutrophils (%) (Auto) 72 % (31-73) Lymphocytes (%) (Auto) 11 % (24-48) Monocytes (%) (Auto) 12 % (0-9) Eosinophils (%) (Auto) 3 % (0-3) Basophils (%) (Auto) 2 % (0-3) Neutrophils # (Auto) 7.0 x10^3/uL (1.8-7.7) Lymphocytes # (Auto) 1.1 x10^3/uL (1.0-4.8) Monocytes # (Auto) 1.2 x10^3/uL (0.0-1.1) Eosinophils # (Auto) 0.3 x10^3/uL (0.0-0.7) Basophils # (Auto) 0.1 x10^3/uL (0.0-0.2) Micro Microbiology 12/24/18 Blood Culture - Preliminary, Resulted NO GROWTH AFTER 4 DAYS 12/20/18 Urine Culture - Final, Complete 12/20/18 Urine Culture Result 1 (AMARA) - Final, Complete Objective Assessment UGI bleed s/p EGD 12/24 - Non-variceal bleeding, distal esophagus. Inflammatory/Dieulafoy possible, aggravated by coagulopathy. -S/P PRBCs 12/24 12/25 Acute Resp failure - intubated 12/24 - blood seen on intubation Afib on Amiodarone Transaminitis - ? reactive vs med/TPN vs other - nml lipase Encephaloapathy Fever ? aspiration, PRBCs, infection -better Leukocytosis - better - nml lactic Suspected aspiration Sinusitis Dysphagia failed bedside swallow Recent Alcohol withdrawal s/p fall while intoxicated ? seizure Coagualopathy - Appreciated Heme eval Valvular disorder - Aortic stenosis s/p mechanical aortic valve - cults neg CAD Encephalopathy, likely posterior reversible encephalopathy syndrome Plan Plan of Care antibiotics D/w nursing Critically ill - improving TAE GELLER MD Dec 30, 2018 08:58
[2018-12-30] MEDS: CALCIUM CARBONATE 500 MG TABLET PO SCH ×3 (09:00→18:00)
[2018-12-30] MEDS: ASPIRIN RECTAL 300 MG SUPP. PR SCH (09:00)
[2018-12-30] MEDS: METOPROLOL TART IMMED RELEASE 25 MG TABLET. PO SCH ×2 (09:00→21:00)
[2018-12-30] MEDS: LORazepam 1 MG TABLET PO SCH ×2 (09:00→21:00)
--- NOTE | 2018-12-30 09:24 | PDOC ---
SUBJECTIVE Subjective S: confused, denies bleeding, hemoglobin 11.6 and platelets fine O: Gen: awake, resting in bed in no acute distress Neuro: Alert, not oriented Psych: pleasant Labs: ferr 786, sat 22, TIBC low Hb 11.6, platelets 383 A/P: He is a 58-year-old man w/ h/o alcoholism, admitted while inebriated post fall w/ scalp laceration and hyponatremia on admit s/p clipping of UGI bleed noted while on warfarin for history of mechanical heart valve GI bleed: UGI bleed resolved, GI is involved, s/p 6 x rbcs last Dec w/ good response and 4 x FFP, safe to resume regular anticoagulation Coagulopathy: Due to Coumadin, reversed, okay to transition heparin drip to Lovenox with Coumadin, have asked pharmacy for assistance Fever and elevated pro-calcitonin: improved, per ID Respiratory distress: resolved, extubated Mechanical heart valve: Coumadin was on hold with recent GI bleed, has done well on hep gtt, fine to start coumadin and lovenox, per Rx, for valvular heart disease, apprec Rx assistance Neuro: neuro is involved, appears alert today but confused still Please do not hesitate to call with any further questions, thank you kindly. OBJECTIVE Vital Signs Vital Signs Date Time Temp Pulse Resp B/P (MAP) Pulse Ox O2 Delivery O2 Flow Rate FiO2 12/30/18 07:31 95 Room Air 12/30/18 07:00 99.7 119 18 141/69 (93) 95 Room Air 99.7 12/30/18 05:44 112 152/83 12/30/18 05:43 112 152/83 12/30/18 03:24 99.7 114 20 151/73 (99) 94 Room Air 99.7 12/30/18 00:02 108 168/79 12/29/18 22:34 98.4 108 20 168/79 (108) 96 Room Air 98.4 12/29/18 22:16 109 168/79 12/29/18 20:00 Room Air 12/29/18 19:40 98.3 104 22 172/84 (113) 96 Room Air 98.3 12/29/18 19:21 96 Room Air 12/29/18 18:00 110 165/82 12/29/18 16:21 96 Room Air 12/29/18 14:48 110 165/82 12/29/18 14:27 98.6 110 20 165/82 (109) 96 Room Air 98.6 12/29/18 13:12 110 149/74 12/29/18 11:52 96 Room Air 12/29/18 10:21 98.7 110 20 149/74 (99) 95 Room Air 98.7 I & O Intake and Output 12/30/18 07:00 Intake Total 0 ml Output Total 3500 ml Balance -3500 ml Intake Oral 0 ml Output Urine Total 3500 ml COMMENT Lab Laboratory Tests Test 12/29/18 10:00 12/29/18 17:00 12/30/18 01:00 12/30/18 08:10 Heparin Anti-Xa Act, Unfractionated > 1.10 IU/mL (0.30-0.70) < 0.10 IU/mL (0.30-0.70) < 0.10 IU/mL (0.30-0.70) 0.14 IU/mL (0.30-0.70) White Blood Count 9.7 x10^3/uL (4.0-11.0) Red Blood Count 3.93 x10^6/uL (4.30-5.70) Hemoglobin 11.6 g/dL (13.0-17.5) Hematocrit 34.3 % (39.0-53.0) Mean Corpuscular Volume 87 fL (79-100) Mean Corpuscular Hemoglobin 30 pg (25-35) Mean Corpuscular Hemoglobin Concent 34 g/dL (31-37) Red Cell Distribution Width 17.6 % (11.5-14.5) Platelet Count 383 x10^3/uL (140-400) Neutrophils (%) (Auto) 72 % (31-73) Lymphocytes (%) (Auto) 11 % (24-48) Monocytes (%) (Auto) 12 % (0-9) Eosinophils (%) (Auto) 3 % (0-3) Basophils (%) (Auto) 2 % (0-3) Neutrophils # (Auto) 7.0 x10^3/uL (1.8-7.7) Lymphocytes # (Auto) 1.1 x10^3/uL (1.0-4.8) Monocytes # (Auto) 1.2 x10^3/uL (0.0-1.1) Eosinophils # (Auto) 0.3 x10^3/uL (0.0-0.7) Basophils # (Auto) 0.1 x10^3/uL (0.0-0.2) BENNY ROCHA MD Dec 30, 2018 09:24
--- NOTE | 2018-12-30 09:36 | PDOC ---
Objective: Objective: D/w nurse - other providers inquired about PEG or Dobhoff. Stool/rectal tube still very dark. D/w social work - possible DC to [facility] today or tomorrow. Vital Signs: Vital Signs Date Time Temp Pulse Resp B/P (MAP) Pulse Ox O2 Delivery O2 Flow Rate FiO2 12/30/18 07:31 95 Room Air 12/30/18 07:00 99.7 119 18 141/69 (93) 99.7 12/29/18 08:00 2.0 Labs: Laboratory Tests Test 12/29/18 10:00 12/29/18 17:00 12/30/18 01:00 12/30/18 08:10 Heparin Anti-Xa Act, Unfractionated > 1.10 IU/mL < 0.10 IU/mL < 0.10 IU/mL 0.14 IU/mL White Blood Count 9.7 x10^3/uL Red Blood Count 3.93 x10^6/uL Hemoglobin 11.6 g/dL Hematocrit 34.3 % Mean Corpuscular Volume 87 fL Mean Corpuscular Hemoglobin 30 pg Mean Corpuscular Hemoglobin Concent 34 g/dL Red Cell Distribution Width 17.6 % Platelet Count 383 x10^3/uL Neutrophils (%) (Auto) 72 % Lymphocytes (%) (Auto) 11 % Monocytes (%) (Auto) 12 % Eosinophils (%) (Auto) 3 % Basophils (%) (Auto) 2 % Neutrophils # (Auto) 7.0 x10^3/uL Lymphocytes # (Auto) 1.1 x10^3/uL Monocytes # (Auto) 1.2 x10^3/uL Eosinophils # (Auto) 0.3 x10^3/uL Basophils # (Auto) 0.1 x10^3/uL Imaging: CXR 12/30 pending PE: GEN: NAD LUNGS: room air HEART: tachycardic ABD: S/ND/NT OTHER: dark liquid stool in rectal tube NEURO/PSYCH: sleeping - did not awaken when I called his name or during exam A/P: Encephalopathy, dysphagia - on TPN Distal esophageal bleeding s/p clips Anemia, coagulopathy - improved S/p AVR - on Heparin -- Plans for DC soon - PEG placement would be complicated w/ anticoagulant use - will review w/ Dr. Israel but would continue TPN for now. GABRIEL BRIDGES Dec 30, 2018 09:36
[2018-12-30] MEDS: PANTOPRAZOLE IV PUSH 40 MG VIAL. IVP SCH ×2 (10:52→21:43)
[2018-12-30] MEDS: NICOTINE 21MG PATCH. TD SCH (10:54)
[2018-12-30 11:19] VITALS: BP 132/80
[2018-12-30] MEDS: cefTRIAXone IV Push 1 GM VIAL. IVP SCH (11:25)
--- NOTE | 2018-12-30 11:27 | PDOC ---
PROGRESS NOTES Assessment Problems Medical Problems: (1) Alcohol abuse Status: Acute (2) Closed head injury Status: Acute Toxic/ anoxic/metabolic encephalopathy, given marked improvement, this may indeed be posterior reversible encephalopathy syndrome as noted on the MRI. 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 Shock and hypotensive events. Acute respiratory failure. Pleural effusion. History of seizure? AFib and valvular heart disease, Coumadin on hold. HTN. HLD. COPD. Peripheral neuropathy. Still NPO Plan Repeat brain MRI tomorrow Continue treating medical diseases Does not need a lumbar puncture. He will need long-term placement. Subjective none Objective Vital Signs Date Time Temp Pulse Resp B/P (MAP) Pulse Ox O2 Delivery O2 Flow Rate FiO2 12/30/18 11:19 98.6 108 18 132/80 (97) 95 Room Air 98.6 12/29/18 08:00 2.0 Intake and Output 12/30/18 06:59 Intake Total 0 ml Output Total 3500 ml Balance -3500 ml Intake Oral 0 ml Output Urine Total 3500 ml PHYSICAL EXAM Not as alert as yesterday, mumbles his replies Pupils: Both reactive, right a little bit larger than left EOMI. CN: no focal findings. Yesterday he responded to visual threat, family has noticed that he doesn't Muscle tone: normal. Muscle strength: Moves all extremities DTR: 1+ Plantar reflex: Flexor Gait: not examined in bed. Sensory exam: not cooperative Cerebellar: not cooperative Review of Relevant I have reviewed the following items robert (where applicable) has been applied. Labs Laboratory Tests Test 12/29/18 02:45 12/29/18 10:00 12/29/18 17:00 12/30/18 01:00 Heparin Anti-Xa Act, Unfractionated < 0.10 IU/mL (0.30-0.70) > 1.10 IU/mL (0.30-0.70) < 0.10 IU/mL (0.30-0.70) < 0.10 IU/mL (0.30-0.70) Sodium Level 139 mmol/L (136-145) Potassium Level 3.4 mmol/L (3.5-5.1) Chloride Level 106 mmol/L (98-107) Carbon Dioxide Level 28 mmol/L (21-32) Anion Gap 5 (6-14) Blood Urea Nitrogen 14 mg/dL (8-26) Creatinine 0.8 mg/dL (0.7-1.3) Estimated GFR (Cockcroft-Gault) 99.6 BUN/Creatinine Ratio 18 (6-20) Glucose Level 145 mg/dL (70-99) Calcium Level 8.2 mg/dL (8.5-10.1) Phosphorus Level 3.0 mg/dL (2.6-4.7) Magnesium Level 1.8 mg/dL (1.8-2.4) Total Bilirubin 0.6 mg/dL (0.2-1.0) Aspartate Amino Transf (AST/SGOT) 75 U/L (15-37) Alanine Aminotransferase (ALT/SGPT) 393 U/L (16-63) Alkaline Phosphatase 42 U/L (46-116) Total Protein 5.5 g/dL (6.4-8.2) Albumin 2.6 g/dL (3.4-5.0) Albumin/Globulin Ratio 0.9 (1.0-1.7) Triglycerides Level 84 mg/dL (0-150) Test 12/30/18 08:10 White Blood Count 9.7 x10^3/uL (4.0-11.0) Red Blood Count 3.93 x10^6/uL (4.30-5.70) Hemoglobin 11.6 g/dL (13.0-17.5) Hematocrit 34.3 % (39.0-53.0) Mean Corpuscular Volume 87 fL (79-100) Mean Corpuscular Hemoglobin 30 pg (25-35) Mean Corpuscular Hemoglobin Concent 34 g/dL (31-37) Red Cell Distribution Width 17.6 % (11.5-14.5) Platelet Count 383 x10^3/uL (140-400) Neutrophils (%) (Auto) 72 % (31-73) Lymphocytes (%) (Auto) 11 % (24-48) Monocytes (%) (Auto) 12 % (0-9) Eosinophils (%) (Auto) 3 % (0-3) Basophils (%) (Auto) 2 % (0-3) Neutrophils # (Auto) 7.0 x10^3/uL (1.8-7.7) Lymphocytes # (Auto) 1.1 x10^3/uL (1.0-4.8) Monocytes # (Auto) 1.2 x10^3/uL (0.0-1.1) Eosinophils # (Auto) 0.3 x10^3/uL (0.0-0.7) Basophils # (Auto) 0.1 x10^3/uL (0.0-0.2) Heparin Anti-Xa Act, Unfractionated 0.14 IU/mL (0.30-0.70) Laboratory Tests Test 12/29/18 17:00 12/30/18 01:00 12/30/18 08:10 Heparin Anti-Xa Act, Unfractionated < 0.10 IU/mL (0.30-0.70) < 0.10 IU/mL (0.30-0.70) 0.14 IU/mL (0.30-0.70) White Blood Count 9.7 x10^3/uL (4.0-11.0) Red Blood Count 3.93 x10^6/uL (4.30-5.70) Hemoglobin 11.6 g/dL (13.0-17.5) Hematocrit 34.3 % (39.0-53.0) Mean Corpuscular Volume 87 fL (79-100) Mean Corpuscular Hemoglobin 30 pg (25-35) Mean Corpuscular Hemoglobin Concent 34 g/dL (31-37) Red Cell Distribution Width 17.6 % (11.5-14.5) Platelet Count 383 x10^3/uL (140-400) Neutrophils (%) (Auto) 72 % (31-73) Lymphocytes (%) (Auto) 11 % (24-48) Monocytes (%) (Auto) 12 % (0-9) Eosinophils (%) (Auto) 3 % (0-3) Basophils (%) (Auto) 2 % (0-3) Neutrophils # (Auto) 7.0 x10^3/uL (1.8-7.7) Lymphocytes # (Auto) 1.1 x10^3/uL (1.0-4.8) Monocytes # (Auto) 1.2 x10^3/uL (0.0-1.1) Eosinophils # (Auto) 0.3 x10^3/uL (0.0-0.7) Basophils # (Auto) 0.1 x10^3/uL (0.0-0.2) Microbiology 12/24/18 Blood Culture - Final, Complete NO GROWTH AFTER 5 DAYS 12/20/18 Urine Culture - Final, Complete 12/20/18 Urine Culture Result 1 (AMARA) - Final, Complete Medications Current Medications Fentanyl Citrate (Fentanyl 2ml Vial) 50 mcg 1X ONCE IV Last administered on 12/10/18 20:03; Start 12/10/18 at 19:15; Stop 12/10/18 at 19:16; Status DC Iohexol (Omnipaque 300 Mg/ml) 75 ml 1X ONCE IV Last administered on 12/10/18at 19:43; Start 12/10/18 at 19:15; Stop 12/10/18 at 19:16; Status DC Sodium Chloride 1,000 ml @ 1,000 mls/hr 1X ONCE IV Last administered on 12/10/18at 19:45; Start 12/10/18 at 19:45; Stop 12/10/18 at 20:44; Status DC Morphine Sulfate (Morphine Sulfate) 2 mg PRN Q2HR PRN IV PAIN Last administered on 12/11/18at 12:03; Start 12/10/18 at 20:15; Stop 12/11/18 at 20:14; Status DC Sodium Chloride 1,000 ml @ 100 mls/hr Q10H IV Last administered on 12/11/18at 08:10; Start 12/10/18 at 20:07; Stop 12/11/18 at 12:21; Status DC Diphtheria/ Tetanus/Acell Pertussis (Boostrix) 0.5 ml ONCE ONCE VAX IM Last ad ministered on 12/10/18at 21:07; Start 12/10/18 at 20:15; Stop 12/10/18 at 20:16; Status DC Ondansetron HCl (Zofran) 4 mg PRN Q6HRS PRN IV NAUSEA/VOMITING 1ST CHOICE Last administered on 12/21/18 03:27; Start 12/11/18 at 05:30 Multivitamins (Thera M Plus) 1 tab DAILY PO Last administered on 12/12/18 08:14; Start 12/11/18 at 09:00; Stop 12/13/18 at 11:25; Status DC Folic Acid (Folic Acid) 1 mg DAILY PO Last administered on 12/12/18 08:14; Start 12/11/18 at 09:00; Stop 12/13/18 at 11:25; Status DC Chlordiazepoxide (Librium) 50 mg PRN Q1HR PRN PO For CIWA 8-14 2ND CHOICE Last administered on 12/18/18 18:03; Start 12/11/18 at 05:30 Chlordiazepoxide (Librium) 100 mg PRN Q1HR PRN PO For CIWA 15+ 2ND CHOICE Last administered on 12/13/18 01:11; Start 12/11/18 at 05:30 Lorazepam (Ativan) 4 mg PRN Q1HR PRN PO For CIWA 8-14 Last administered on 12/13/18 02:48; Start 12/11/18 at 05:30 Lorazepam (Ativan) 8 mg PRN Q1HR PRN PO For CIWA 15 or greater; Start 12/11/18 at 05:30 Lorazepam (Ativan Inj) 2 mg PRN Q1HR PRN IV For CIWA 8-14 Last administered on 12/30/18 05:44; Start 12/11/18 at 05:30 Lorazepam (Ativan Inj) 4 mg PRN Q1HR PRN IV For CIWA 15 or greater Last administered on 12/26/18 22:11; Start 12/11/18 at 05:30 Haloperidol Lactate (Haldol Inj) 5 mg PRN Q4HRS PRN IVP Hallucinatns,Confusn,Delirium Last administered on 12/27/18 19:18; Start 12/11/18 at 05:30 Diphenhydramine HCl (Benadryl) 25 mg PRN Q15MIN PRN IVP EPS symptoms 2'Haldol admin Last administered on 12/27/18 16:58; Start 12/11/18 at 05:30 Clonidine HCl (Catapres) 0.1 mg PRN Q1HR PRN PO SBP > 180 or DBP > 100, MRX3; Start 12/11/18 at 05:30 Sodium Chloride 1,000 ml @ 60 mls/hr [id number] IV Last administered on 12/21/18 07:26; Start 12/11/18 at 13:00; Stop 12/22/18 at 14:53; Status DC Sodium Chloride 150 ml @ 50 mls/hr 1X ONCE IV Last administered on 12/11/18at 13:48; Start 12/11/18 at 13:00; Stop 12/11/18 at 15:59; Status DC Lisinopril (Prinivil) 20 mg DAILY PO Last administered on 12/19/18at 08:00; Start 12/11/18 at 14:00; Stop 12/21/18 at 15:19; Status DC Oxycodone/ Acetaminophen (Percocet 7.5/ 325) 1 tab PRN Q6HRS PRN PO MODERATE TO SEVERE PAIN Last administered on 12/19/18at 06:19; Start 12/11/18 at 13:30 Calcium Carbonate/ Glycine (Oscal) 500 mg TIDAFTMEAL PO Last administered on 12/19/18at 17:22; Start 12/12/18 at 13:00 Ziprasidone (Geodon Im) 20 mg 1X ONCE IM ; Start 12/13/18 at 05:00; Stop 12/13/18 at 18:51; Status DC Lorazepam 100 mg/ Sodium Chloride 100 ml @ 2 mls/hr CONT PRN IV SEDATION Last administered on 12/13/18at 19:56; Start 12/13/18 at 07:00; Stop 12/18/18 at 16:33; Status DC Olanzapine (ZyPREXA IM) 10 mg PRN Q8HRS PRN IM AGITATION Last administered on 12/19/18at 00:05; Start 12/13/18 at 08:30 Olanzapine (ZyPREXA IM) 10 mg STK-MED ONCE IM ; Start 12/13/18 at 08:37; Stop 12/13/18 at 08:38; Status DC Fentanyl Citrate (Fentanyl 2ml Vial) 75 mcg 1X ONCE IV ; Start 12/13/18 at 09:45; Stop 12/13/18 at 19:20; Status DC Fentanyl Citrate (Fentanyl 2ml Vial) 100 mcg STK-MED ONCE .ROUTE ; Start 12/13/18 at 09:47; Stop 12/13/18 at 09:48; Status DC Fentanyl Citrate (Fentanyl 2ml Vial) 75 mcg PRN Q30MIN PRN IV PAIN Last administered on 12/27/18at 23:30; Start 12/13/18 at 10:00 Multivitamins 10 ml/Thiamine HCl 100 mg/Folic Acid 1 mg/Sodium Chloride 1,011.2 ml @ 100 mls/ hr DAILY IV Last administered on 12/18/18at 08:55; Start 12/14/18 at 12:00; Stop 12/18/18 at 19:07; Status DC Enoxaparin Sodium (Lovenox 80mg Syringe) 80 mg Q12HR SQ Last administered on 12/21/18at 07:50; Start 12/13/18 at 14:30; Stop 12/21/18 at 12:56; Status DC Warfarin Sodium (Coumadin Per Pharmacy) 1 each PRN DAILY PRN MC SEE COMMENTS Last administered on 12/24/18at 11:27; Start 12/13/18 at 14:15; Stop 12/24/18 at 16:10; Status DC Warfarin Sodium (Coumadin) 7.5 mg 1X WARF ONCE PO ; Start 12/13/18 at 16:00; Stop 12/13/18 at 16:01; Status DC Nicotine (Nicoderm Cq 21mg) 1 patch DAILY TD Last administered on 12/30/18at 10:54; Start 12/14/18 at 09:00 Dexmedetomidine HCl 400 mcg/ Sodium Chloride 100 ml @ 0 mls/hr CONT PRN IV PER PROTOCOL Last administered on 12/18/18at 00:12; Start 12/14/18 at 01:45; Stop 12/18/18 at 16:33; Status DC Sodium Chloride 500 ml @ 500 mls/hr 1X PRN PRN IV SEE COMMENTS; Start 12/14/18 at 01:45; Stop 12/20/18 at 11:56; Status DC Atropine Sulfate (ATROPINE 0.5mg SYRINGE) 0.5 mg PRN Q5MIN PRN IV SEE COMMENTS; Start 12/14/18 at 01:45; Stop 12/20/18 at 11:55; Status DC Nicotine (Nicoderm Cq 21mg) 1 patch STK-MED ONCE TD ; Start 12/14/18 at 01:57; Stop 12/14/18 at 01:57; Status DC Lorazepam (Ativan) 1 mg BID PO Last administered on 12/19/18at 08:00; Start 12/14/18 at 09:00 Warfarin Sodium (Coumadin) 5 mg DAILY16 PO ; Start 12/14/18 at 16:00; Stop 12/14/18 at 09:21; Status DC Warfarin Sodium (Coumadin) 7.5 mg 1X WARF ONCE PO ; Start 12/14/18 at 16:00; Stop 12/14/18 at 16:01; Status DC Enalaprilat (Vasotec Inj) 1.25 mg Q8HRS IVP Last administered on 12/30/18at 05:43; Start 12/14/18 at 15:00 Nicardipine HCl 50 mg/Sodium Chloride 250 ml @ 25 mls/hr CONT PRN IV SEE I/O RECORD Last administered on 12/16/18at 09:58; Start 12/14/18 at 17:45; Stop 12/18/18 at 16:33; Status DC Nicardipine HCl 50 mg/Sodium Chloride 250 ml @ 25 mls/hr CONT PRN IV SEE I/O RECORD; Start 12/14/18 at 18:00; Status UNV Warfarin Sodium (Coumadin) 7.5 mg 1X WARF ONCE PO ; Start 12/15/18 at 16:00; Stop 12/15/18 at 16:01; Status DC Warfarin Sodium (Coumadin - No Dose Today) 1 each 1X WARF ONCE MC ; Start 12/16/18 at 16:00; Stop 12/16/18 at 16:01; Status DC Warfarin Sodium (Coumadin) 7.5 mg 1X WARF ONCE PO Last administered on 12/18/18at 08:54; Start 12/17/18 at 16:00; Stop 12/17/18 at 16:01; Status DC Ceftriaxone Sodium (Rocephin) 1 gm Q24H IVP Last administered on 12/20/18at 12:08; Start 12/18/18 at 12:30; Stop 12/20/18 at 15:14; Status DC Metoprolol Tartrate (Lopressor) 25 mg BID PO Last administered on 12/19/18at 08:01; Start 12/18/18 at 12:30 Acetaminophen/ Codeine Phosphate (Tylenol #3) 1 tab PRN Q6HRS PRN PO PAIN MILD TO MOD; Start 12/18/18 at 12:00; Stop 12/18/18 at 12:55; Status DC Lactobacillus Rhamnosus (Culturelle) 1 cap BID PO Last administered on 12/19/18at 08:00; Start 12/18/18 at 21:00; Stop 12/24/18 at 11:17; Status DC Acetaminophen (Tylenol) 650 mg PRN Q6HRS PRN PO FEVER Last administered on 12/19/18 17:23; Start 12/18/18 at 13:00 Warfarin Sodium (Coumadin) 7.5 mg 1X WARF ONCE PO Last administered on 12/18/18 18:03; Start 12/18/18 at 16:00; Stop 12/18/18 at 16:11; Status DC Albuterol/ Ipratropium (Duoneb) 3 ml 1X ONCE NEB Last administered on 12/19/18 07:15; Start 12/19/18 at 07:15; Stop 12/19/18 at 07:16; Status DC Ziprasidone (Geodon Im) 10 mg 1X ONCE IM Last administered on 12/19/18 07:42; Start 12/19/18 at 07:15; Stop 12/19/18 at 07:16; Status DC Warfarin Sodium (Coumadin) 7.5 mg 1X WARF ONCE PO Last administered on 12/19/18 17:23; Start 12/19/18 at 16:00; Stop 12/19/18 at 16:01; Status DC Potassium Chloride (Klor-Con) 40 meq 1X ONCE PO Last administered on 12/19/18at 16:12; Start 12/19/18 at 14:00; Stop 12/19/18 at 14:01; Status DC Potassium Chloride (Klor-Con) 20 meq DAILYWBKFT PO ; Start 12/20/18 at 08:00; Stop 12/28/18 at 08:35; Status DC Doxycycline Hyclate (Vibra-Tab) 100 mg BID PO Last administered on 12/19/18at 17:22; Start 12/19/18 at 17:30; Stop 12/19/18 at 17:57; Status DC Doxycycline Hyclate 100 mg/ Dextrose 100 ml @ 50 mls/hr Q12HR IV Last administered on 12/23/18 22:17; Start 12/19/18 at 21:00; Stop 12/24/18 at 10:15; Status DC Metoprolol Tartrate (Lopressor Vial) 5 mg PRN Q6HRS PRN IVP HYPERTENSION Last administered on 12/24/18at 07:22; Start 12/19/18 at 18:00 Scopolamine (Transderm-Scop) 1 patch Q3DAYS TD Last administered on 12/29/18at 08:49; Start 12/20/18 at 09:00 Potassium Chloride/Water 100 ml @ 100 mls/hr Q1H IV Last administered on 12/20/18at 10:36; Start 12/20/18 at 06:00; Stop 12/20/18 at 09:59; Status DC Potassium Chloride (Klor-Con) 40 meq 1X ONCE PO ; Start 12/20/18 at 08:00; Stop 12/20/18 at 08:01; Status DC Acetaminophen (Tylenol Supp) 650 mg PRN Q6HRS PRN AR MILD PAIN / TEMP Last administered on 12/28/18at 21:28; Start 12/20/18 at 07:15 Warfarin Sodium (Coumadin) 7.5 mg 1X WARF ONCE PO ; Start 12/20/18 at 16:00; Stop 12/20/18 at 16:01; Status DC Hydralazine HCl (Apresoline Inj) 10 mg PRN Q4HRS PRN IVP ELEVATED BP, SEE COMMENTS Last administered on 12/22/18at 11:07; Start 12/20/18 at 14:30 Potassium Chloride (Klor-Con) 40 meq 1X ONCE PO ; Start 12/20/18 at 14:30; Stop 12/20/18 at 14:41; Status DC Potassium Chloride (Klor-Con) 20 meq DAILYWBKFT PO ; Start 12/21/18 at 08:00; Stop 12/25/18 at 11:25; Status DC Albuterol/ Ipratropium (Duoneb) 3 ml RTQID NEB Last administered on 12/30/18at 07:30; Start 12/20/18 at 16:00 Piperacillin Sod/ Tazobactam Sod 3.375 gm/Sodium Chloride 50 ml @ 100 mls/hr Q6HRS IV Last administered on 12/24/18at 05:09; Start 12/20/18 at 16:00; Stop 12/24/18 at 10:15; Status DC Amino Acids/ Glycerin/ Electrolytes 1,000 ml @ 75 mls/hr [id number] IV Last administered on 12/25/18at 09:05; Start 12/21/18 at 13:00; Stop 12/25/18 at 21:59; Status DC Warfarin Sodium (Coumadin) 1 mg 1X WARF ONCE PO ; Start 12/21/18 at 16:00; Stop 12/21/18 at 16:01; Status DC Sodium Chloride 1,000 ml @ 75 mls/hr 1X ONCE IV Last administered on 12/21/18at 13:49; Start 12/21/18 at 13:15; Stop 12/22/18 at 02:34; Status DC Potassium Chloride/Water 100 ml @ 100 mls/hr Q1H IV Last administered on 12/22/18at 11:03; Start 12/22/18 at 06:00; Stop 12/22/18 at 09:59; Status DC Sodium Chloride 1,000 ml @ 75 mls/hr 1X ONCE IV Last administered on 12/22/18at 14:49; Start 12/22/18 at 14:30; Stop 12/23/18 at 03:49; Status DC Potassium Chloride 20 meq/ Sodium Chloride 1,010 ml @ 75 mls/hr 1X ONCE IV Last administered on 12/22/18at 17:51; Start 12/22/18 at 16:00; Stop 12/23/18 at 05:27; Status DC Hydralazine HCl (Apresoline Inj) 10 mg Q6HRS IVP Last administered on 12/30/18at 05:44; Start 12/22/18 at 18:00 Potassium Chloride/Water 100 ml @ 100 mls/hr Q1H IV Last administered on 12/23/18at 14:01; Start 12/23/18 at 06:00; Stop 12/23/18 at 09:59; Status DC Potassium Chloride/Water 50 ml @ 50 mls/hr Q1H IV ; Start 12/23/18 at 11:15; Stop 12/23/18 at 13:14; Status UNV Potassium Chloride/Water 100 ml @ 100 mls/hr Q1H IV ; Start 12/23/18 at 11:30; Stop 12/23/18 at 13:04; Status DC Warfarin Sodium (Coumadin - No Dose Today) 1 each 1X WARF ONCE MC Last administered on 12/23/18at 16:00; Start 12/23/18 at 16:00; Stop 12/23/18 at 16:01; Status DC Pantoprazole Sodium (PROTONIX VIAL for IV PUSH) 40 mg DAILYAC IVP Last administered on 12/23/18at 15:21; Start 12/23/18 at 15:00; Stop 12/24/18 at 10:43; Status DC Cefepime HCl (Maxipime) 2 gm Q8HRS IVP Last administered on 12/29/18at 05:51; Start 12/24/18 at 10:00; Stop 12/29/18 at 07:57; Status DC Metronidazole 100 ml @ 100 mls/hr Q8HRS IV Last administered on 12/29/18at 05:51; Start 12/24/18 at 10:00; Stop 12/29/18 at 07:57; Status DC Daptomycin 460 mg/ Sodium Chloride 50 ml @ 100 mls/hr Q24H IV Last administered on 12/27/18at 10:58; Start 12/24/18 at 11:00; Stop 12/28/18 at 11:10; Status DC Micafungin Sodium 100 mg/Dextrose 100 ml @ 100 mls/hr Q24H IV Last administered on 12/28/18at 08:58; Start 12/24/18 at 12:00; Stop 12/28/18 at 11:10; Status DC Pantoprazole Sodium 80 mg/ Sodium Chloride 100 ml @ 10 mls/hr Q10H IV Last administered on 12/26/18at 13:23; Start 12/24/18 at 11:00; Stop 12/26/18 at 15:12; Status DC Lorazepam (Ativan) 1 mg PRN Q6HRS PRN PO ANXIETY / AGITATION 1ST CHOICE; Start 12/24/18 at 10:45 Ondansetron HCl (Zofran) 4 mg PRN Q6HRS PRN IV NAUSEA/VOMITING; Start 12/24/18 at 10:45; Stop 12/24/18 at 10:52; Status DC Info (Icu Electrolyte Protocol) 1 ea DAILY MC Last administered on 12/25/18at 08:50; Start 12/25/18 at 09:00; Stop 12/28/18 at 17:05; Status DC Sodium Chloride (Normal Saline Flush) 3 ml QSHIFT PRN IV AFTER MEDS AND BLOOD DRAWS; Start 12/24/18 at 10:45 Sodium Chloride 1,000 ml @ 2,130 mls/hr Q29M IV Last administered on 12/24/18at 12:13; Start 12/24/18 at 10:50; Stop 12/24/18 at 11:50; Status DC Sodium Chloride 500 ml @ 1,000 mls/hr PRN Q30MIN PRN IV SEE COMMENTS; Start 12/24/18 at 11:00 Norepinephrine Bitartrate 250 ml @ 0 mls/hr CONT PRN IV SEE COMMENTS Last administered on 12/24/18at 20:22; Start 12/24/18 at 11:00; Stop 12/27/18 at 09:21; Status DC Dobutamine HCl/ Dextrose 250 ml @ 0 mls/hr CONT PRN IV SEE COMMENTS; Start 12/24/18 at 11:00; Stop 12/28/18 at 17:04; Status DC Sodium Bicarbonate (Sodium Bicarb Adult 8.4% Syr) 100 meq 1X ONCE IV Last a dministered on 12/24/18at 11:16; Start 12/24/18 at 11:15; Stop 12/24/18 at 11:16; Status DC Phytonadione (Vitamin K Ampule) 5 mg 1X ONCE SQ Last administered on 12/24/18at 12:24; Start 12/24/18 at 11:15; Stop 12/24/18 at 11:22; Status DC Succinylcholine Chloride (Anectine) 200 mg STK-MED ONCE .ROUTE ; Start 12/24/18 at 11:20; Stop 12/24/18 at 11:21; Status DC Midazolam HCl (Versed) 5 mg STK-MED ONCE .ROUTE ; Start 12/24/18 at 11:21; Stop 12/24/18 at 11:21; Status DC Warfarin Sodium (Coumadin - No Dose Today) 1 each 1X WARF ONCE MC ; Start 12/24/18 at 16:00; Stop 12/24/18 at 22:25; Status DC Atropine Sulfate (ATROPINE 1mg SYRINGE) 1 mg STK-MED ONCE .ROUTE ; Start 12/24/18 at 11:30; Stop 12/24/18 at 11:30; Status DC Epinephrine HCl (Adrenalin) 1 mg STK-MED ONCE .ROUTE ; Start 12/24/18 at 11:30; Stop 12/24/18 at 11:30; Status DC Succinylcholine Chloride (Anectine) 60 mg 1X ONCE IV Last administered on 12/24/18at 12:04; Start 12/24/18 at 11:45; Stop 12/24/18 at 11:46; Status DC Midazolam HCl (Versed) 2 mg 1X ONCE IV Last administered on 12/24/18at 11:30; Start 12/24/18 at 11:45; Stop 12/24/18 at 11:46; Status DC Epinephrine HCl (EPINEPHrine SYRINGE) 1 mg 1X ONCE IV ; Start 12/24/18 at 11:45; Stop 12/24/18 at 11:46; Status DC Sodium Chloride 1,000 ml @ 1,000 mls/hr 1X ONCE IV ; Start 12/24/18 at 11:45; Stop 12/24/18 at 12:44; Status DC Midazolam HCl 100 ml @ 5 mls/hr CONT PRN IV SEE I/O RECORD Last administered on 12/25/18at 23:40; Start 12/24/18 at 12:00; Stop 12/27/18 at 09:21; Status DC Fentanyl Citrate 30 ml @ 0 mls/hr CONT PRN IV SEE PROTOCOL Last administered on 12/26/18at 05:26; Start 12/24/18 at 12:00; Stop 12/28/18 at 17:06; Status DC Midazolam HCl (Versed) 2 mg 1X ONCE IV ; Start 12/24/18 at 12:15; Stop 12/24/18 at 12:16; Status DC Metoclopramide HCl (Reglan Vial) 10 mg 1X ONCE IVP Last administered on 12/24/18at 15:00; Start 12/24/18 at 12:45; Stop 12/24/18 at 12:46; Status DC Vasopressin 40 unit/Dextrose 102 ml @ 6 mls/hr CONT PRN IV SEE I/O RECORD Last administered on 12/26/18at 12:38; Start 12/24/18 at 13:00; Stop 12/27/18 at 09:21; Status DC Albumin Human 500 ml @ As Directed STK-MED ONCE IV ; Start 12/24/18 at 14:37; Stop 12/24/18 at 14:37; Status DC Albumin Human 500 ml @ 125 mls/hr 1X ONCE IV Last administered on 12/24/18at 14:39; Start 12/24/18 at 14:45; Stop 12/24/18 at 18:44; Status DC Digoxin (Lanoxin) 500 mcg 1X ONCE IV Last administered on 12/24/18at 15:30; Start 12/24/18 at 15:30; Stop 12/24/18 at 15:31; Status DC Digoxin (Lanoxin) 500 mcg STK-MED ONCE .ROUTE ; Start 12/24/18 at 15:07; Stop 12/24/18 at 15:08; Status DC Phytonadione (Vitamin K Ampule) 10 mg 1X ONCE SQ Last administered on 12/24/18at 17:36; Start 12/24/18 at 15:45; Stop 12/24/18 at 15:49; Status DC Amiodarone HCl 150 mg/Dextrose 103 ml @ 618 mls/hr 1X ONCE IV Last administered on 12/24/18at 17:09; Start 12/24/18 at 16:00; Stop 12/24/18 at 16:09; Status DC Amiodarone HCl 900 mg/Dextrose 518 ml @ 0 mls/hr CONT PRN IV SEE I/O RECORD Last administered on 12/24/18at 17:55; Start 12/24/18 at 16:00; Stop 12/24/18 at 17:55; Status DC Phytonadione (Vitamin K Ampule) 10 mg 1X ONCE SQ ; Start 12/24/18 at 17:00; Stop 12/24/18 at 17:01; Status DC Potassium Chloride/Water 50 ml @ 50 mls/hr Q1H IV Last administered on 12/25/18at 12:37; Start 12/25/18 at 09:00; Stop 12/25/18 at 12:59; Status DC Potassium Chloride/Water 50 ml @ 0 mls/hr Q1H IV ; Start 12/25/18 at 08:30; Stop 12/25/18 at 11:31; Status UNV Info (Tpn Per Pharmacy) 1 each PRN DAILY PRN MC SEE COMMENTS Last administered on 12/29/18at 14:12; Start 12/25/18 at 09:45 Sodium Chloride 50 meq/Potassium Acetate 70 meq/ Potassium Phosphate 13.6 mmol/Magnesium Sulfate 10 meq/ Calcium Gluconate 10 meq/ Multivitamins 10 ml/Chromium/ Copper/Manganese/ Seleni/Zn 1 ml/ Total Parenteral Nutrition/Amino Acids/Dextrose/ Fat Emulsion Intravenous 1,512 ml @ 63 mls/hr TPN CONT IV Last administered on 12/25/18at 21:37; Start 12/25/18 at 22:00; Stop 12/26/18 at 21:59; Status DC Amiodarone HCl 900 mg/Dextrose 518 ml @ 17 mls/hr CONT PRN IV .; Start at 20:00; Status Cancel Amiodarone HCl 900 mg/Dextrose 518 ml @ 0 mls/hr CONT PRN IV SEE I/O RECORD Last administered on 12/25/18at 20:15; Start 12/25/18 at 20:15; Stop 12/25/18 at 20:15; Status DC Aspirin (Aspirin Rectal Supp) 300 mg DAILY AR Last administered on 12/28/18at 09:20; Start 12/26/18 at 11:00 Amiodarone HCl 900 mg/Dextrose 518 ml @ 33 mls/hr CONT PRN IV SEE I/O RECORD; Start 12/26/18 at 12:45; Stop 12/27/18 at 01:06; Status DC Potassium Acetate 70 meq/Potassium Phosphate 17 mmol/ Magnesium Sulfate 10 meq/Calcium Gluconate 10 meq/ Multivitamins 10 ml/Chromium/ Copper/Manganese/ Seleni/Zn 1 ml/ Thiamine HCl 100 mg/Folic Acid 1 mg/Total Parenteral Nutrition/Amino Acids/Dextrose/ Fat Emulsion Intravenous 1,992 ml @ 83 mls/hr TPN CONT IV Last administered on 12/26/18at 21:53; Start 12/26/18 at 22:00; Stop 12/27/18 at 21:59; Status DC Heparin Sodium/ Dextrose 500 ml @ 18.72 mls/ hr CONT PRN IV PER PROTOCOL Last administered on 12/29/18at 13:10; Start 12/26/18 at 14:45; Stop 12/30/18 at 09:22; Status DC Heparin Sodium (Porcine) (Heparin Sodium) 1,950 unit PRN Q6HRS PRN IV FOR UFH LEVEL LESS THAN 0.2 Last administered on 12/30/18at 01:44; Start 12/26/18 at 14:45; Stop 12/30/18 at 09:22; Status DC Pantoprazole Sodium (PROTONIX VIAL for IV PUSH) 40 mg BID IVP Last administered on 12/30/18at 10:52; Start 12/26/18 at 21:00 Amiodarone HCl 450 mg/Dextrose 259 ml @ 17 mls/hr CONT PRN IV SEE I/O RECORD Last administered on 12/27/18at 19:19; Start 12/27/18 at 02:00 Potassium Acetate 85 meq/Potassium Phosphate 17 mmol/ Magnesium Sulfate 10 meq/Calcium Gluconate 10 meq/ Multivitamins 10 ml/Chromium/ Copper/Manganese/ Seleni/Zn 1 ml/ Thiamine HCl 100 mg/Folic Acid 1 mg/Total Parenteral Nutrition/Amino Acids/Dextrose/ Fat Emulsion Intravenous 1,992 ml @ 83 mls/hr TPN CONT IV Last administered on 12/27/18at 21:33; Start 12/27/18 at 22:00; Stop 12/28/18 at 21:59; Status DC Potassium Chloride/Water 100 ml @ 100 mls/hr Q1H IV Last administered on 12/28/18at 10:21; Start 12/28/18 at 09:00; Stop 12/28/18 at 10:59; Status DC Potassium Chloride/Water 50 ml @ 50 mls/hr DAILY IV ; Start 12/28/18 at 09:00; Status UNV Potassium Acetate 100 meq/Potassium Phosphate 20 mmol/ Magnesium Sulfate 13 meq/Calcium Gluconate 10 meq/ Multivitamins 10 ml/Chromium/ Copper/Manganese/ Seleni/Zn 1 ml/ Thiamine HCl 100 mg/Folic Acid 1 mg/Total Parenteral Nutrition/Amino Acids/Dextrose/ Fat Emulsion Intravenous 1,992 ml @ 83 mls/hr TPN CONT IV Last administered on 12/28/18at 21:31; Start 12/28/18 at 22:00; Stop 12/29/18 at 21:59; Status DC Ceftriaxone Sodium (Rocephin) 1 gm Q24H IVP Last administered on 12/29/18at 08:49; Start 12/29/18 at 08:00 Loperamide HCl (Immodium Oral Susp) 2 mg PRN Q30MIN PRN PEG DIARRHEA; Start 12/29/18 at 08:00 Potassium Acetate 120 meq/Potassium Phosphate 16 mmol/ Magnesium Sulfate 13 meq/Calcium Gluconate 10 meq/ Multivitamins 10 ml/Chromium/ Copper/Manganese/ Seleni/Zn 1 ml/ Thiamine HCl 100 mg/Folic Acid 1 mg/Sodium Chloride 20 meq/ Total Parenteral Nutrition/Amino Acids/Dextrose/ Fat Emulsion Intravenous 1,992 ml @ 83 mls/hr TPN CONT IV Last administered on 12/29/18at 22:17; Start 12/16 07/04 at 22:00; Stop 12/30/18 at 21:59 Enoxaparin Sodium (Lovenox 80mg Syringe) 80 mg Q12HR SQ ; Start 12/30/18 at 12:00 Warfarin Sodium (Coumadin Per Pharmacy) 1 each PRN DAILY PRN MC SEE COMMENTS Last administered on 12/30/18at 10:54; Start 12/30/18 at 09:30 Active Scripts Active Reported Lorazepam 1 Mg Tablet 1 Tab PO BID Percocet 7.5-325 Mg Tablet (Oxycodone/Acetaminophen) 1 Each Tablet 1 Tab PO PRN Q6HRS PRN Coumadin (Warfarin Sodium) 5 Mg Tablet 1 Tab PO DAILY Lisinopril 20 Mg Tablet 1 Tab PO DAILY Vitals/I & O Vital Sign - Last 24 Hours 12/29/18 12/29/18 12/29/18 12/29/18 11:52 13:12 14:27 14:48 Temp 98.6 98.6 Pulse 110 110 110 Resp 20 B/P (MAP) 149/74 165/82 (109) 165/82 Pulse Ox 96 96 O2 Delivery Room Air Room Air 12/29/18 12/29/18 12/29/18 12/29/18 16:21 18:00 19:21 19:40 Temp 98.3 98.3 Pulse 110 104 Resp 22 B/P (MAP) 165/82 172/84 (113) Pulse Ox 96 96 96 O2 Delivery Room Air Room Air Room Air 12/29/18 12/29/18 12/29/18 12/30/18 20:00 22:16 22:34 00:02 Temp 98.4 98.4 Pulse 109 108 108 Resp 20 B/P (MAP) 168/79 168/79 (108) 168/79 Pulse Ox 96 O2 Delivery Room Air Room Air 12/30/18 12/30/18 12/30/18 12/30/18 03:24 05:43 05:44 07:00 Temp 99.7 99.7 99.7 99.7 Pulse 114 112 112 119 Resp 20 18 B/P (MAP) 151/73 (99) 152/83 152/83 141/69 (93) Pulse Ox 94 95 O2 Delivery Room Air Room Air 12/30/18 12/30/18 07:31 11:19 Temp 98.6 98.6 Pulse 108 Resp 18 B/P (MAP) 132/80 (97) Pulse Ox 95 95 O2 Delivery Room Air Room Air Intake and Output 12/29/18 12/29/18 12/30/18 14:59 22:59 06:59 Intake Total 0 ml 0 ml Output Total 2400 ml 1100 ml Balance -2400 ml -1100 ml DESTINI GEIGER MD Dec 30, 2018 11:26
--- NOTE | 2018-12-30 11:43 | PDOC ---
PULMONARY PROGRESS NOTES Subjective PT WITH NO SIGN OF RESP DISTRESS CONFUSED Vitals Vital Signs Date Time Temp Pulse Resp B/P (MAP) Pulse Ox O2 Delivery O2 Flow Rate FiO2 12/30/18 11:19 98.6 108 18 132/80 (97) 95 Room Air 98.6 12/29/18 08:00 2.0 General: Alert Lungs: Other (dim in right base ) Cardiovascular: S1, S2 Abdomen: Soft Neuro Exam: Alert Extremities: Other Skin: Warm, Dry Labs Laboratory Tests Test 12/29/18 02:45 12/29/18 10:00 12/29/18 17:00 12/30/18 01:00 Heparin Anti-Xa Act, Unfractionated < 0.10 IU/mL (0.30-0.70) > 1.10 IU/mL (0.30-0.70) < 0.10 IU/mL (0.30-0.70) < 0.10 IU/mL (0.30-0.70) Sodium Level 139 mmol/L (136-145) Potassium Level 3.4 mmol/L (3.5-5.1) Chloride Level 106 mmol/L (98-107) Carbon Dioxide Level 28 mmol/L (21-32) Anion Gap 5 (6-14) Blood Urea Nitrogen 14 mg/dL (8-26) Creatinine 0.8 mg/dL (0.7-1.3) Estimated GFR (Cockcroft-Gault) 99.6 BUN/Creatinine Ratio 18 (6-20) Glucose Level 145 mg/dL (70-99) Calcium Level 8.2 mg/dL (8.5-10.1) Phosphorus Level 3.0 mg/dL (2.6-4.7) Magnesium Level 1.8 mg/dL (1.8-2.4) Total Bilirubin 0.6 mg/dL (0.2-1.0) Aspartate Amino Transf (AST/SGOT) 75 U/L (15-37) Alanine Aminotransferase (ALT/SGPT) 393 U/L (16-63) Alkaline Phosphatase 42 U/L (46-116) Total Protein 5.5 g/dL (6.4-8.2) Albumin 2.6 g/dL (3.4-5.0) Albumin/Globulin Ratio 0.9 (1.0-1.7) Triglycerides Level 84 mg/dL (0-150) Test 12/30/18 08:10 White Blood Count 9.7 x10^3/uL (4.0-11.0) Red Blood Count 3.93 x10^6/uL (4.30-5.70) Hemoglobin 11.6 g/dL (13.0-17.5) Hematocrit 34.3 % (39.0-53.0) Mean Corpuscular Volume 87 fL (79-100) Mean Corpuscular Hemoglobin 30 pg (25-35) Mean Corpuscular Hemoglobin Concent 34 g/dL (31-37) Red Cell Distribution Width 17.6 % (11.5-14.5) Platelet Count 383 x10^3/uL (140-400) Neutrophils (%) (Auto) 72 % (31-73) Lymphocytes (%) (Auto) 11 % (24-48) Monocytes (%) (Auto) 12 % (0-9) Eosinophils (%) (Auto) 3 % (0-3) Basophils (%) (Auto) 2 % (0-3) Neutrophils # (Auto) 7.0 x10^3/uL (1.8-7.7) Lymphocytes # (Auto) 1.1 x10^3/uL (1.0-4.8) Monocytes # (Auto) 1.2 x10^3/uL (0.0-1.1) Eosinophils # (Auto) 0.3 x10^3/uL (0.0-0.7) Basophils # (Auto) 0.1 x10^3/uL (0.0-0.2) Heparin Anti-Xa Act, Unfractionated 0.14 IU/mL (0.30-0.70) Laboratory Tests Test 12/29/18 17:00 12/30/18 01:00 12/30/18 08:10 Heparin Anti-Xa Act, Unfractionated < 0.10 IU/mL (0.30-0.70) < 0.10 IU/mL (0.30-0.70) 0.14 IU/mL (0.30-0.70) White Blood Count 9.7 x10^3/uL (4.0-11.0) Red Blood Count 3.93 x10^6/uL (4.30-5.70) Hemoglobin 11.6 g/dL (13.0-17.5) Hematocrit 34.3 % (39.0-53.0) Mean Corpuscular Volume 87 fL (79-100) Mean Corpuscular Hemoglobin 30 pg (25-35) Mean Corpuscular Hemoglobin Concent 34 g/dL (31-37) Red Cell Distribution Width 17.6 % (11.5-14.5) Platelet Count 383 x10^3/uL (140-400) Neutrophils (%) (Auto) 72 % (31-73) Lymphocytes (%) (Auto) 11 % (24-48) Monocytes (%) (Auto) 12 % (0-9) Eosinophils (%) (Auto) 3 % (0-3) Basophils (%) (Auto) 2 % (0-3) Neutrophils # (Auto) 7.0 x10^3/uL (1.8-7.7) Lymphocytes # (Auto) 1.1 x10^3/uL (1.0-4.8) Monocytes # (Auto) 1.2 x10^3/uL (0.0-1.1) Eosinophils # (Auto) 0.3 x10^3/uL (0.0-0.7) Basophils # (Auto) 0.1 x10^3/uL (0.0-0.2) Medications Active Scripts Medications Dose Route/Sig Max Daily Dose Days Date Category Lorazepam 1 Mg Tablet 1 Tab PO BID 12/10/18 Reported Percocet 7.5-325 Mg Tablet (Oxycodone/Acetaminophen) 1 Each Tablet 1 Tab PO PRN Q6HRS PRN 12/10/18 Reported Coumadin (Warfarin Sodium) 5 Mg Tablet 1 Tab PO DAILY 10/06/17 Reported Lisinopril 20 Mg Tablet 1 Tab PO DAILY 10/06/17 Reported Impression . 1. Acute respiratory failure secondary to severe metabolic acidosis.--improved 2. Metabolic acidosis.-resolved 3. Septic shock versus acute volemic shock.--resolved 4. Leukocytosis----resolved 5. Acute drop in hemoglobin--- stable 6. Alcoholism ---- ongoing 7. Hyponatremia--- improved 8. Protein malnutrition 9. Metaboli/ toxic encephalopathy---- improved 10. Possible aspiration 11. Fever. 12. History of seizures. 13. Chronic obstructive pulmonary disease. 14. Hypertension. 15. Peripheral neuropathy. 16. Status post aortic valve replacement for aortic stenosis. 17. NON VARICEAL BLEED UPON EGD IMPRESSION: Cortically based cerebral edema is noted involving bifrontal lobes, right greater than left, as well as symmetric involvement of the bilateral occipital and parietal lobes. Differential considerations would include subacute ischemia from global hyperperfusion. Of note, there is not significant involvement of the basal ganglia as typically seen with cerebral hypoxic injury. Findings may also be seen with posterior reversible encephalopathy syndrome. There is no midline shift identified. Plan . OK TRANSFER TO [facility] EXTUBATED NOW CONFUSED ANTI BX PER YOHAN DYSON MD Dec 30, 2018 11:43
[2018-12-30 12:07] LABS: PROTHROMBIN TIME PATIENT 12.5 SEC (11.7-14.0)
--- NOTE | 2018-12-30 13:14 | RAD ---
Examination: PORTABLE CHEST 1V History: Respiratory failure Comparison/Correlation: 12/29/2018 frontal view of the chest Findings: Portable upright frontal view of the chest was obtained. Sternal wires are present. Cardiac valvular band is present. Right-sided PICC again seen. Heart size is normal. No pneumothorax. No definite effusion. No new infiltrate. Evaluation of the retrocardiac region is limited. Epigastric surgical clips are present. Impression: No new infiltrate. No significant change. Electronically signed by: Momo Rosario MD (12/30/2018 1:12 PM) [facility]
--- NOTE | 2018-12-30 13:18 | NUR ---
SS following up with discharge planning. SS contacted [facility], ; fax [phone], for update on bed availability. [facility] reported that no beds available at this time and they would notify SS once available.
[2018-12-30] MEDS: TPN PER PHARMACY MC PRN (14:38)
--- NOTE | 2018-12-30 14:40 | NUR ---
Pharmacy TPN Dosing Note S: SHAW OG is a 58 year old M Currently receiving Central Continuous TPN started 12/25/18 B:Pertinent PMH: GI bleed Height: 5 feet, 9 inches Weight: 79.681393 kg Current diet: LABS: Sodium: 139 Potassium: 3.4 Chloride: 106 Calcium: 8.2 Corrected Calcium: 9.64 Magnesium: 1.8 CO2: 28 SCr: 0.8 Glucose: 145 Albumin: 2.2 AST: 75 ALT: 393 TPN FORMULA: TPN TYPE: Central Continuous AMINO ACIDS: 95 gm DEXTROSE: 250 gm LIPIDS: 20 gm SODIUM CHLORIDE: 20 mEq SODIUM ACETATE: mEq SODIUM PHOSPHATE: mmol POTASSIUM CHLORIDE: mEq POTASSIUM ACETATE: 120 mEq POTASSIUM PHOSPHATE: 16 mmol MAGNESIUM: 13 mEq CALCIUM: 10 mEq INSULIN: - units MULTIPLE VITAMIN: 10 ml TRACE ELEMENTS: 1 ml(s) TPN PLAN: No new labs 12/30, continue same tpn. BMP ordered for Saturday R: Continue TPN as ordered Will monitor electrolytes, glucose, and tolerance to TPN. RANDI SAUCEDO, [facility], 12/30/18 [id number]
--- NOTE | 2018-12-30 14:44 | NUR ---
Pharmacy Warfarin Dosing Note S:Pharmacy consulted to assist with anticoagulation therapy started with target INR: 2 -3 O:SHAW OG is a 58 year old M with Mechanical Aortic Valve LABS: Last INR: 1.0 Last HGB: 11.6 Last HCT: 34.3 Last PLT: 383 Last dose of Hold given on 12/29/18 at 1700 Previous Regimen: 5MG DAILY Vitamin K given: Drug Interaction Changes: None Ongoing Drug Interactions: A:INR of 1.0 is below desired range. Target range for this patient is: 2 -3 P: Warfarin dose: 7.5 mg Today at 1600 Bridge Therapy: Enoxaparin 1 mg/kg q12h Next INR due in am Pharmacy anticoagulation service will continue to follow. RANDI SAUCEDO, [facility], 12/30/18 [id number]
[2018-12-30 15:00] VITALS: BP 164/80
[2018-12-30] MEDS ORDERED: WARFARIN 7.5 MG TABLET. PO ONE (16:00)
--- NOTE | 2018-12-30 16:22 | NUR ---
1600 Warfarin: paged Dr. Vides as the pt is currently NPO due to failed swallow study. Addendum: 12/30/18 at 1637 by CAMERON VALENTINO RN RN Per Dr. Vides' nurse, okay to non-admin Warfarin. Dr. Vides will place adtl orders if needed.
--- NOTE | 2018-12-30 17:58 | NUR ---
Pt had V-tach xz17 beats. Notified Dr. Graham, orders received.
[2018-12-30 18:36] LABS: CALCIUM 8.6 mg/dL (8.5-10.1); CREATININE 0.8 mg/dL (0.7-1.3); GFR 99.6
[2018-12-30 18:40] LABS: ALBUMIN 2.8 g/dL (3.4-5.0); MAGNESIUM 1.9 mg/dL (1.8-2.4); PHOSPHORUS 3.1 mg/dL (2.6-4.7)
[2018-12-30 19:30] VITALS: BP 156/71
[2018-12-30] MEDS: ENALAPRILAT 2.5 MG/2 ML VIAL. IVP SCH (21:36)
[2018-12-30] MEDS ORDERED: AMINO ACID IV SCH ×12 (22:00)
[2018-12-30] MEDS ORDERED: TOTAL PARENTERAL NUTRITION IV SCH ×12 (22:00)
[2018-12-30] MEDS ORDERED: [UNRECOGNIZED DRUG - OTHER] IV SCH ×12 (22:00)
[2018-12-30] MEDS ORDERED: DEXTROSE 70% IV SCH ×12 (22:00)
[2018-12-30 22:40] VITALS: BP 162/83
[2018-12-31] MEDS: hydrALAZINE 20 MG/ML VIAL. IVP SCH ×4 (00:27→18:14)
[2018-12-31 03:01] VITALS: BP 165/82
[2018-12-31] MEDS: ENALAPRILAT 2.5 MG/2 ML VIAL. IVP SCH ×3 (05:43→22:00)
[2018-12-31 06:22] LABS: CALCIUM 8.6 mg/dL (8.5-10.1); CREATININE 0.8 mg/dL (0.7-1.3); GFR 99.6
[2018-12-31 06:46] LABS: POTASSIUM 5.2 mmol/L (3.5-5.1)
[2018-12-31 06:55] LABS: PROTHROMBIN TIME PATIENT 12.4 SEC (11.7-14.0)
[2018-12-31 07:00] VITALS: BP 156/74
--- NOTE | 2018-12-31 07:56 | PDOC ---
Infectious Disease Note Subjective Subjective awake, speaking and much improved ROS ROS no n/v/d/sob/fever Vital Sign Vital Signs Vital Signs Date Time Temp Pulse Resp B/P (MAP) Pulse Ox O2 Delivery O2 Flow Rate FiO2 12/31/18 07:00 98.3 109 20 156/74 (101) 97 Room Air 98.3 Physical Exam PHYSICAL EXAM GENERAL: resting quietly, HEENT: Oral cavity dry, poor dentition NECK: Supple. LUNGS: Clear anteriorly HEART: S1, S2. ABDOMEN: Obese, soft, no guarding, bowel sounds present. Rectal tube : Peng EXTREMITIES: No gross edema or cyanosis. Scabs left knee - no redness/wa rmth/swelling SKIN: Warm to touch. No signs of rash. some healing scraps/echymosis NEUROLOGIC: awake and appropriate, no focal deficit RUE PICC - clean Labs Lab Laboratory Tests Test 12/30/18 08:10 12/30/18 11:40 12/30/18 18:02 12/31/18 06:05 White Blood Count 9.7 x10^3/uL (4.0-11.0) Red Blood Count 3.93 x10^6/uL (4.30-5.70) Hemoglobin 11.6 g/dL (13.0-17.5) Hematocrit 34.3 % (39.0-53.0) Mean Corpuscular Volume 87 fL (79-100) Mean Corpuscular Hemoglobin 30 pg (25-35) Mean Corpuscular Hemoglobin Concent 34 g/dL (31-37) Red Cell Distribution Width 17.6 % (11.5-14.5) Platelet Count 383 x10^3/uL (140-400) Neutrophils (%) (Auto) 72 % (31-73) Lymphocytes (%) (Auto) 11 % (24-48) Monocytes (%) (Auto) 12 % (0-9) Eosinophils (%) (Auto) 3 % (0-3) Basophils (%) (Auto) 2 % (0-3) Neutrophils # (Auto) 7.0 x10^3/uL (1.8-7.7) Lymphocytes # (Auto) 1.1 x10^3/uL (1.0-4.8) Monocytes # (Auto) 1.2 x10^3/uL (0.0-1.1) Eosinophils # (Auto) 0.3 x10^3/uL (0.0-0.7) Basophils # (Auto) 0.1 x10^3/uL (0.0-0.2) Heparin Anti-Xa Act, Unfractionated 0.14 IU/mL (0.30-0.70) Prothrombin Time 12.5 SEC (11.7-14.0) 12.4 SEC (11.7-14.0) Prothromb Time International Ratio 1.0 (0.8-1.1) 1.0 (0.8-1.1) Sodium Level 137 mmol/L (136-145) 133 mmol/L (136-145) Potassium Level 4.0 mmol/L (3.5-5.1) 5.2 mmol/L (3.5-5.1) Chloride Level 103 mmol/L (98-107) 101 mmol/L (98-107) Carbon Dioxide Level 25 mmol/L (21-32) 25 mmol/L (21-32) Anion Gap 9 (6-14) 7 (6-14) Blood Urea Nitrogen 15 mg/dL (8-26) 15 mg/dL (8-26) Creatinine 0.8 mg/dL (0.7-1.3) 0.8 mg/dL (0.7-1.3) Estimated GFR (Cockcroft-Gault) 99.6 99.6 Glucose Level 149 mg/dL (70-99) 121 mg/dL (70-99) Calcium Level 8.6 mg/dL (8.5-10.1) 8.6 mg/dL (8.5-10.1) Phosphorus Level 3.1 mg/dL (2.6-4.7) Magnesium Level 1.9 mg/dL (1.8-2.4) Albumin 2.8 g/dL (3.4-5.0) Micro Microbiology 12/24/18 Blood Culture - Preliminary, Resulted NO GROWTH AFTER 4 DAYS 12/20/18 Urine Culture - Final, Complete 12/20/18 Urine Culture Result 1 (AMARA) - Final, Complete Objective Assessment UGI bleed s/p EGD 12/24 - Non-variceal bleeding, distal esophagus. Inflammatory/Dieulafoy possible, aggravated by coagulopathy. -S/P PRBCs 12/24 12/25 Acute Resp failure - intubated 12/24 - blood seen on intubation Afib on Amiodarone Transaminitis - ? reactive vs med/TPN vs other - nml lipase Encephaloapathy Fever ? aspiration, PRBCs, infection -better Leukocytosis - better - nml lactic Suspected aspiration Sinusitis Dysphagia failed bedside swallow Recent Alcohol withdrawal s/p fall while intoxicated ? seizure Coagualopathy - Appreciated Heme eval Valvular disorder - Aortic stenosis s/p mechanical aortic valve - cults neg CAD Encephalopathy, likely posterior reversible encephalopathy syndrome Plan Plan of Care antibiotics rocephine D/w nursing LTAC today TAE GELLER MD Dec 31, 2018 07:56
[2018-12-31] MEDS: IPRATRPIUM/ALBUTEROL 0.5/2.5MG 3 ML NEBU. NEB SCH ×4 (08:09→19:21)
[2018-12-31] MEDS: cefTRIAXone IV Push 1 GM VIAL. IVP SCH (08:27)
[2018-12-31] MEDS: NICOTINE 21MG PATCH. TD SCH (08:29)
[2018-12-31] MEDS: PANTOPRAZOLE IV PUSH 40 MG VIAL. IVP SCH (08:30)
[2018-12-31] MEDS: ASPIRIN RECTAL 300 MG SUPP. PR SCH (09:00)
[2018-12-31] MEDS: CALCIUM CARBONATE 500 MG TABLET PO SCH ×3 (09:00→18:14)
[2018-12-31] MEDS: LORazepam 1 MG TABLET PO SCH ×2 (09:00→21:07)
[2018-12-31] MEDS: METOPROLOL TART IMMED RELEASE 25 MG TABLET. PO SCH ×2 (09:00→21:07)
--- NOTE | 2018-12-31 09:33 | PDOC ---
PROGRESS NOTES Assessment Problems Medical Problems: (1) Alcohol abuse Status: Acute (2) Closed head injury Status: Acute Toxic/ anoxic/metabolic encephalopathy, given marked improvement, this may indeed be posterior reversible encephalopathy syndrome as noted on the MRI. 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 Shock and hypotensive events. Acute respiratory failure. Pleural effusion. History of seizure? AFib and valvular heart disease, Coumadin on hold. HTN. HLD. COPD. Peripheral neuropathy. Still NPO Visual inattention Plan Repeat brain MRI today Continue treating medical diseases Does not need a lumbar puncture. He will need long-term placement, LTAC Subjective Denies pain Objective Vital Signs Date Time Temp Pulse Resp B/P (MAP) Pulse Ox O2 Delivery O2 Flow Rate FiO2 12/31/18 08:10 96 Room Air 12/31/18 07:00 98.3 109 20 156/74 (101) 98.3 Intake and Output 12/31/18 07:00 Intake Total 996 ml Output Total 3000 ml Balance -2004 ml Intake Oral 0 ml Other 996 ml Output Urine Total 3000 ml PHYSICAL EXAM Bright and alert, knows he's in hospital Pupils: Both reactive, right a little bit larger than left EOMI. CN: no focal findings. Can count fingers, visual inattention Muscle tone: normal. Muscle strength: Moves all extremities DTR: 1+ Plantar reflex: Flexor Gait: not examined in bed. Sensory exam: not cooperative Cerebellar: not cooperative Review of Relevant I have reviewed the following items robert (where applicable) has been applied. Labs Laboratory Tests Test 12/29/18 10:00 12/29/18 17:00 12/30/18 01:00 12/30/18 08:10 Heparin Anti-Xa Act, Unfractionated > 1.10 IU/mL (0.30-0.70) < 0.10 IU/mL (0.30-0.70) < 0.10 IU/mL (0.30-0.70) 0.14 IU/mL (0.30-0.70) White Blood Count 9.7 x10^3/uL (4.0-11.0) Red Blood Count 3.93 x10^6/uL (4.30-5.70) Hemoglobin 11.6 g/dL (13.0-17.5) Hematocrit 34.3 % (39.0-53.0) Mean Corpuscular Volume 87 fL (79-100) Mean Corpuscular Hemoglobin 30 pg (25-35) Mean Corpuscular Hemoglobin Concent 34 g/dL (31-37) Red Cell Distribution Width 17.6 % (11.5-14.5) Platelet Count 383 x10^3/uL (140-400) Neutrophils (%) (Auto) 72 % (31-73) Lymphocytes (%) (Auto) 11 % (24-48) Monocytes (%) (Auto) 12 % (0-9) Eosinophils (%) (Auto) 3 % (0-3) Basophils (%) (Auto) 2 % (0-3) Neutrophils # (Auto) 7.0 x10^3/uL (1.8-7.7) Lymphocytes # (Auto) 1.1 x10^3/uL (1.0-4.8) Monocytes # (Auto) 1.2 x10^3/uL (0.0-1.1) Eosinophils # (Auto) 0.3 x10^3/uL (0.0-0.7) Basophils # (Auto) 0.1 x10^3/uL (0.0-0.2) Test 12/30/18 11:40 12/30/18 18:02 12/31/18 06:05 Prothrombin Time 12.5 SEC (11.7-14.0) 12.4 SEC (11.7-14.0) Prothromb Time International Ratio 1.0 (0.8-1.1) 1.0 (0.8-1.1) Sodium Level 137 mmol/L (136-145) 133 mmol/L (136-145) Potassium Level 4.0 mmol/L (3.5-5.1) 5.2 mmol/L (3.5-5.1) Chloride Level 103 mmol/L (98-107) 101 mmol/L (98-107) Carbon Dioxide Level 25 mmol/L (21-32) 25 mmol/L (21-32) Anion Gap 9 (6-14) 7 (6-14) Blood Urea Nitrogen 15 mg/dL (8-26) 15 mg/dL (8-26) Creatinine 0.8 mg/dL (0.7-1.3) 0.8 mg/dL (0.7-1.3) Estimated GFR (Cockcroft-Gault) 99.6 99.6 Glucose Level 149 mg/dL (70-99) 121 mg/dL (70-99) Calcium Level 8.6 mg/dL (8.5-10.1) 8.6 mg/dL (8.5-10.1) Phosphorus Level 3.1 mg/dL (2.6-4.7) Magnesium Level 1.9 mg/dL (1.8-2.4) Albumin 2.8 g/dL (3.4-5.0) Laboratory Tests Test 12/30/18 11:40 12/30/18 18:02 12/31/18 06:05 Prothrombin Time 12.5 SEC (11.7-14.0) 12.4 SEC (11.7-14.0) Prothromb Time International Ratio 1.0 (0.8-1.1) 1.0 (0.8-1.1) Sodium Level 137 mmol/L (136-145) 133 mmol/L (136-145) Potassium Level 4.0 mmol/L (3.5-5.1) 5.2 mmol/L (3.5-5.1) Chloride Level 103 mmol/L (98-107) 101 mmol/L (98-107) Carbon Dioxide Level 25 mmol/L (21-32) 25 mmol/L (21-32) Anion Gap 9 (6-14) 7 (6-14) Blood Urea Nitrogen 15 mg/dL (8-26) 15 mg/dL (8-26) Creatinine 0.8 mg/dL (0.7-1.3) 0.8 mg/dL (0.7-1.3) Estimated GFR (Cockcroft-Gault) 99.6 99.6 Glucose Level 149 mg/dL (70-99) 121 mg/dL (70-99) Calcium Level 8.6 mg/dL (8.5-10.1) 8.6 mg/dL (8.5-10.1) Phosphorus Level 3.1 mg/dL (2.6-4.7) Magnesium Level 1.9 mg/dL (1.8-2.4) Albumin 2.8 g/dL (3.4-5.0) Microbiology 12/24/18 Blood Culture - Final, Complete NO GROWTH AFTER 5 DAYS 12/20/18 Urine Culture - Final, Complete 12/20/18 Urine Culture Result 1 (AMARA) - Final, Complete Medications Current Medications Fentanyl Citrate (Fentanyl 2ml Vial) 50 mcg 1X ONCE IV Last administered on 12/10/18 20:03; Start 12/10/18 at 19:15; Stop 12/10/18 at 19:16; Status DC Iohexol (Omnipaque 300 Mg/ml) 75 ml 1X ONCE IV Last administered on 12/10/18at 19:43; Start 12/10/18 at 19:15; Stop 12/10/18 at 19:16; Status DC Sodium Chloride 1,000 ml @ 1,000 mls/hr 1X ONCE IV Last administered on 12/10/18at 19:45; Start 12/10/18 at 19:45; Stop 12/10/18 at 20:44; Status DC Morphine Sulfate (Morphine Sulfate) 2 mg PRN Q2HR PRN IV PAIN Last administered on 12/11/18at 12:03; Start 12/10/18 at 20:15; Stop 12/11/18 at 20:14; Status DC Sodium Chloride 1,000 ml @ 100 mls/hr Q10H IV Last administered on 12/11/18at 08:10; Start 12/10/18 at 20:07; Stop 12/11/18 at 12:21; Status DC Diphtheria/ Tetanus/Acell Pertussis (Boostrix) 0.5 ml ONCE ONCE VAX IM Last administered on 12/10/18at 21:07; Start 12/10/18 at 20:15; Stop 12/10/18 at 20:16; Status DC Ondansetron HCl (Zofran) 4 mg PRN Q6HRS PRN IV NAUSEA/VOMITING 1ST CHOICE Last administered on 12/21/18at 03:27; Start 12/11/18 at 05:30 Multivitamins (Thera M Plus) 1 tab DAILY PO Last administered on 12/12/18at 08:14; Start 12/11/18 at 09:00; Stop 12/13/18 at 11:25; Status DC Folic Acid (Folic Acid) 1 mg DAILY PO Last administered on 12/12/18at 08:14; Start 12/11/18 at 09:00; Stop 12/13/18 at 11:25; Status DC Chlordiazepoxide (Librium) 50 mg PRN Q1HR PRN PO For CIWA 8-14 2ND CHOICE Last administered on 12/18/18 18:03; Start 12/11/18 at 05:30 Chlordiazepoxide (Librium) 100 mg PRN Q1HR PRN PO For CIWA 15+ 2ND CHOICE Last administered on 12/13/18 01:11; Start 12/11/18 at 05:30 Lorazepam (Ativan) 4 mg PRN Q1HR PRN PO For CIWA 8-14 Last administered on 12/13/18 02:48; Start 12/11/18 at 05:30 Lorazepam (Ativan) 8 mg PRN Q1HR PRN PO For CIWA 15 or greater; Start 12/11/18 at 05:30 Lorazepam (Ativan Inj) 2 mg PRN Q1HR PRN IV For CIWA 8-14 Last administered on 12/30/18 05:44; Start 12/11/18 at 05:30 Lorazepam (Ativan Inj) 4 mg PRN Q1HR PRN IV For CIWA 15 or greater Last administered on 12/26/18 22:11; Start 12/11/18 at 05:30 Haloperidol Lactate (Haldol Inj) 5 mg PRN Q4HRS PRN IVP Hallucinatns,Confusn,D elirium Last administered on 12/27/18 19:18; Start 12/11/18 at 05:30 Diphenhydramine HCl (Benadryl) 25 mg PRN Q15MIN PRN IVP EPS symptoms 2'Haldol admin Last administered on 12/27/18 16:58; Start 12/11/18 at 05:30 Clonidine HCl (Catapres) 0.1 mg PRN Q1HR PRN PO SBP > 180 or DBP > 100, MRX3; Start 12/11/18 at 05:30 Sodium Chloride 1,000 ml @ 60 mls/hr [id number] IV Last administered on 12/21/18 07:26; Start 12/11/18 at 13:00; Stop 12/22/18 at 14:53; Status DC Sodium Chloride 150 ml @ 50 mls/hr 1X ONCE IV Last administered on 12/11/18at 13:48; Start 12/11/18 at 13:00; Stop 12/11/18 at 15:59; Status DC Lisinopril (Prinivil) 20 mg DAILY PO Last administered on 12/19/18 08:00; Start 12/11/18 at 14:00; Stop 12/21/18 at 15:19; Status DC Oxycodone/ Acetaminophen (Percocet 7.5/ 325) 1 tab PRN Q6HRS PRN PO MODERATE TO SEVERE PAIN Last administered on 12/19/18at 06:19; Start 12/11/18 at 13:30 Calcium Carbonate/ Glycine (Oscal) 500 mg TIDAFTMEAL PO Last administered on 12/19/18at 17:22; Start 12/12/18 at 13:00 Ziprasidone (Geodon Im) 20 mg 1X ONCE IM ; Start 12/13/18 at 05:00; Stop 12/13/18 at 18:51; Status DC Lorazepam 100 mg/ Sodium Chloride 100 ml @ 2 mls/hr CONT PRN IV SEDATION Last administered on 12/13/18at 19:56; Start 12/13/18 at 07:00; Stop 12/18/18 at 16:33; Status DC Olanzapine (ZyPREXA IM) 10 mg PRN Q8HRS PRN IM AGITATION Last administered on 12/19/18at 00:05; Start 12/13/18 at 08:30 Olanzapine (ZyPREXA IM) 10 mg STK-MED ONCE IM ; Start 12/13/18 at 08:37; Stop 12/13/18 at 08:38; Status DC Fentanyl Citrate (Fentanyl 2ml Vial) 75 mcg 1X ONCE IV ; Start 12/13/18 at 09:45; Stop 12/13/18 at 19:20; Status DC Fentanyl Citrate (Fentanyl 2ml Vial) 100 mcg STK-MED ONCE .ROUTE ; Start 12/13/18 at 09:47; Stop 12/13/18 at 09:48; Status DC Fentanyl Citrate (Fentanyl 2ml Vial) 75 mcg PRN Q30MIN PRN IV PAIN Last administered on 12/27/18at 23:30; Start 12/13/18 at 10:00 Multivitamins 10 ml/Thiamine HCl 100 mg/Folic Acid 1 mg/Sodium Chloride 1,011.2 ml @ 100 mls/ hr DAILY IV Last administered on 12/18/18at 08:55; Start 12/14/18 at 12:00; Stop 12/18/18 at 19:07; Status DC Enoxaparin Sodium (Lovenox 80mg Syringe) 80 mg Q12HR SQ Last administered on 12/21/18at 07:50; Start 12/13/18 at 14:30; Stop 12/21/18 at 12:56; Status DC Warfarin Sodium (Coumadin Per Pharmacy) 1 each PRN DAILY PRN MC SEE COMMENTS Last administered on 12/24/18at 11:27; Start 12/13/18 at 14:15; Stop 12/24/18 at 16:10; Status DC Warfarin Sodium (Coumadin) 7.5 mg 1X WARF ONCE PO ; Start 12/13/18 at 16:00; Stop 12/13/18 at 16:01; Status DC Nicotine (Nicoderm Cq 21mg) 1 patch DAILY TD Last administered on 12/31/18at 08:29; Start 12/14/18 at 09:00 Dexmedetomidine HCl 400 mcg/ Sodium Chloride 100 ml @ 0 mls/hr CONT PRN IV PER PROTOCOL Last administered on 12/18/18at 00:12; Start 12/14/18 at 01:45; Stop 12/18/18 at 16:33; Status DC Sodium Chloride 500 ml @ 500 mls/hr 1X PRN PRN IV SEE COMMENTS; Start 12/14/18 at 01:45; Stop 12/20/18 at 11:56; Status DC Atropine Sulfate (ATROPINE 0.5mg SYRINGE) 0.5 mg PRN Q5MIN PRN IV SEE COMMENTS; Start 12/14/18 at 01:45; Stop 12/20/18 at 11:55; Status DC Nicotine (Nicoderm Cq 21mg) 1 patch STK-MED ONCE TD ; Start 12/14/18 at 01:57; Stop 12/14/18 at 01:57; Status DC Lorazepam (Ativan) 1 mg BID PO Last administered on 12/19/18at 08:00; Start 12/14/18 at 09:00 Warfarin Sodium (Coumadin) 5 mg DAILY16 PO ; Start 12/14/18 at 16:00; Stop 12/14/18 at 09:21; Status DC Warfarin Sodium (Coumadin) 7.5 mg 1X WARF ONCE PO ; Start 12/14/18 at 16:00; Stop 12/14/18 at 16:01; Status DC Enalaprilat (Vasotec Inj) 1.25 mg Q8HRS IVP Last administered on 12/30/18at 16:06; Start 12/14/18 at 15:00; Stop 12/30/18 at 16:47; Status DC Nicardipine HCl 50 mg/Sodium Chloride 250 ml @ 25 mls/hr CONT PRN IV SEE I/O RECORD Last administered on 12/16/18at 09:58; Start 12/14/18 at 17:45; Stop 12/18/18 at 16:33; Status DC Nicardipine HCl 50 mg/Sodium Chloride 250 ml @ 25 mls/hr CONT PRN IV SEE I/O RECORD; Start 12/14/18 at 18:00; Status UNV Warfarin Sodium (Coumadin) 7.5 mg 1X WARF ONCE PO ; Start 12/15/18 at 16:00; Stop 12/15/18 at 16:01; Status DC Warfarin Sodium (Coumadin - No Dose Today) 1 each 1X WARF ONCE MC ; Start 12/16/18 at 16:00; Stop 12/16/18 at 16:01; Status DC Warfarin Sodium (Coumadin) 7.5 mg 1X WARF ONCE PO Last administered on 12/18/18at 08:54; Start 12/17/18 at 16:00; Stop 12/17/18 at 16:01; Status DC Ceftriaxone Sodium (Rocephin) 1 gm Q24H IVP Last administered on 12/20/18at 12:08; Start 12/18/18 at 12:30; Stop 12/20/18 at 15:14; Status DC Metoprolol Tartrate (Lopressor) 25 mg BID PO Last administered on 12/19/18at 08:01; Start 12/18/18 at 12:30 Acetaminophen/ Codeine Phosphate (Tylenol #3) 1 tab PRN Q6HRS PRN PO PAIN MILD TO MOD; Start 12/18/18 at 12:00; Stop 12/18/18 at 12:55; Status DC Lactobacillus Rhamnosus (Culturelle) 1 cap BID PO Last administered on at 08:00; Start 12/18/18 at 21:00; Stop 12/24/18 at 11:17; Status DC Acetaminophen (Tylenol) 650 mg PRN Q6HRS PRN PO FEVER Last administered on 12/19/18 17:23; Start 12/18/18 at 13:00 Warfarin Sodium (Coumadin) 7.5 mg 1X WARF ONCE PO Last administered on 12/18/18at 18:03; Start 12/18/18 at 16:00; Stop 12/18/18 at 16:11; Status DC Albuterol/ Ipratropium (Duoneb) 3 ml 1X ONCE NEB Last administered on 12/19/18at 07:15; Start 12/19/18 at 07:15; Stop 12/19/18 at 07:16; Status DC Ziprasidone (Geodon Im) 10 mg 1X ONCE IM Last administered on 12/19/18at 07:42; Start 12/19/18 at 07:15; Stop 12/19/18 at 07:16; Status DC Warfarin Sodium (Coumadin) 7.5 mg 1X WARF ONCE PO Last administered on 12/19/18 17:23; Start 12/19/18 at 16:00; Stop 12/19/18 at 16:01; Status DC Potassium Chloride (Klor-Con) 40 meq 1X ONCE PO Last administered on 12/19/18at 16:12; Start 12/19/18 at 14:00; Stop 12/19/18 at 14:01; Status DC Potassium Chloride (Klor-Con) 20 meq DAILYWBKFT PO ; Start 12/20/18 at 08:00; Stop 12/28/18 at 08:35; Status DC Doxycycline Hyclate (Vibra-Tab) 100 mg BID PO Last administered on 12/19/18at 17:22; Start 12/19/18 at 17:30; Stop 12/19/18 at 17:57; Status DC Doxycycline Hyclate 100 mg/ Dextrose 100 ml @ 50 mls/hr Q12HR IV Last administered on 12/23/18at 22:17; Start 12/19/18 at 21:00; Stop 12/24/18 at 10:15; Status DC Metoprolol Tartrate (Lopressor Vial) 5 mg PRN Q6HRS PRN IVP HYPERTENSION, 2ND CHOICE Last administered on 12/24/18at 07:22; Start 12/19/18 at 18:00 Scopolamine (Transderm-Scop) 1 patch Q3DAYS TD Last administered on 12/29/18at 08:49; Start 12/20/18 at 09:00 Potassium Chloride/Water 100 ml @ 100 mls/hr Q1H IV Last administered on 12/20/18at 10:36; Start 12/20/18 at 06:00; Stop 12/20/18 at 09:59; Status DC Potassium Chloride (Klor-Con) 40 meq 1X ONCE PO ; Start 12/20/18 at 08:00; Stop 12/20/18 at 08:01; Status DC Acetaminophen (Tylenol Supp) 650 mg PRN Q6HRS PRN ME MILD PAIN / TEMP Last administered on 12/28/18at 21:28; Start 12/20/18 at 07:15 Warfarin Sodium (Coumadin) 7.5 mg 1X WARF ONCE PO ; Start 12/20/18 at 16:00; Stop 12/20/18 at 16:01; Status DC Hydralazine HCl (Apresoline Inj) 10 mg PRN Q4HRS PRN IVP ELEVATED BP, 1ST CHOICE Last administered on 12/22/18at 11:07; Start 12/20/18 at 14:30 Potassium Chloride (Klor-Con) 40 meq 1X ONCE PO ; Start 12/20/18 at 14:30; Stop 12/20/18 at 14:41; Status DC Potassium Chloride (Klor-Con) 20 meq DAILYWBKFT PO ; Start 12/21/18 at 08:00; Stop 12/25/18 at 11:25; Status DC Albuterol/ Ipratropium (Duoneb) 3 ml RTQID NEB Last administered on 12/31/18at 08:09; Start 12/20/18 at 16:00 Piperacillin Sod/ Tazobactam Sod 3.375 gm/Sodium Chloride 50 ml @ 100 mls/hr Q6HRS IV Last administered on 12/24/18at 05:09; Start 12/20/18 at 16:00; Stop 12/24/18 at 10:15; Status DC Amino Acids/ Glycerin/ Electrolytes 1,000 ml @ 75 mls/hr [id number] IV Last administered on 12/25/18at 09:05; Start 12/21/18 at 13:00; Stop 12/25/18 at 21: 59; Status DC Warfarin Sodium (Coumadin) 1 mg 1X WARF ONCE PO ; Start 12/21/18 at 16:00; Stop 12/21/18 at 16:01; Status DC Sodium Chloride 1,000 ml @ 75 mls/hr 1X ONCE IV Last administered on 12/21/18at 13:49; Start 12/21/18 at 13:15; Stop 12/22/18 at 02:34; Status DC Potassium Chloride/Water 100 ml @ 100 mls/hr Q1H IV Last administered on 12/22/18at 11:03; Start 12/22/18 at 06:00; Stop 12/22/18 at 09:59; Status DC Sodium Chloride 1,000 ml @ 75 mls/hr 1X ONCE IV Last administered on 12/22/18at 14:49; Start 12/22/18 at 14:30; Stop 12/23/18 at 03:49; Status DC Potassium Chloride 20 meq/ Sodium Chloride 1,010 ml @ 75 mls/hr 1X ONCE IV Last administered on 12/22/18at 17:51; Start 12/22/18 at 16:00; Stop 12/23/18 at 05:27; Status DC Hydralazine HCl (Apresoline Inj) 10 mg Q6HRS IVP Last administered on 12/31/18at 05:42; Start 12/22/18 at 18:00 Potassium Chloride/Water 100 ml @ 100 mls/hr Q1H IV Last administered on 12/23/18at 14:01; Start 12/23/18 at 06:00; Stop 12/23/18 at 09:59; Status DC Potassium Chloride/Water 50 ml @ 50 mls/hr Q1H IV ; Start 12/23/18 at 11:15; Stop 12/23/18 at 13:14; Status UNV Potassium Chloride/Water 100 ml @ 100 mls/hr Q1H IV ; Start 12/23/18 at 11:30; Stop 12/23/18 at 13:04; Status DC Warfarin Sodium (Coumadin - No Dose Today) 1 each 1X WARF ONCE MC Last administered on 12/23/18at 16:00; Start 12/23/18 at 16:00; Stop 12/23/18 at 16:01; Status DC Pantoprazole Sodium (PROTONIX VIAL for IV PUSH) 40 mg DAILYAC IVP Last administered on 12/23/18at 15:21; Start 12/23/18 at 15:00; Stop 12/24/18 at 10:43; Status DC Cefepime HCl (Maxipime) 2 gm Q8HRS IVP Last administered on 12/29/18at 05:51; Start 12/24/18 at 10:00; Stop 12/29/18 at 07:57; Status DC Metronidazole 100 ml @ 100 mls/hr Q8HRS IV Last administered on 12/29/18at 05:51; Start 12/24/18 at 10:00; Stop 12/29/18 at 07:57; Status DC Daptomycin 460 mg/ Sodium Chloride 50 ml @ 100 mls/hr Q24H IV Last administered on 12/27/18at 10:58; Start 12/24/18 at 11:00; Stop 12/28/18 at 11:10; Status DC Micafungin Sodium 100 mg/Dextrose 100 ml @ 100 mls/hr Q24H IV Last administered on 12/28/18at 08:58; Start 12/24/18 at 12:00; Stop 12/28/18 at 11:10; Status DC Pantoprazole Sodium 80 mg/ Sodium Chloride 100 ml @ 10 mls/hr Q10H IV Last administered on 12/26/18at 13:23; Start 12/24/18 at 11:00; Stop 12/26/18 at 15:12; Status DC Lorazepam (Ativan) 1 mg PRN Q6HRS PRN PO ANXIETY / AGITATION 1ST CHOICE; Start 12/24/18 at 10:45 Ondansetron HCl (Zofran) 4 mg PRN Q6HRS PRN IV NAUSEA/VOMITING; Start 12/24/18 at 10:45; Stop 12/24/18 at 10:52; Status DC Info (Icu Electrolyte Protocol) 1 ea DAILY MC Last administered on 12/25/18at 08:50; Start 12/25/18 at 09:00; Stop 12/28/18 at 17:05; Status DC Sodium Chloride (Normal Saline Flush) 3 ml QSHIFT PRN IV AFTER MEDS AND BLOOD DRAWS; Start 12/24/18 at 10:45 Sodium Chloride 1,000 ml @ 2,130 mls/hr Q29M IV Last administered on 12/24/18at 12:13; Start 12/24/18 at 10:50; Stop 12/24/18 at 11:50; Status DC Sodium Chloride 500 ml @ 1,000 mls/hr PRN Q30MIN PRN IV SEE COMMENTS; Start 12/24/18 at 11:00 Norepinephrine Bitartrate 250 ml @ 0 mls/hr CONT PRN IV SEE COMMENTS Last administered on 12/24/18at 20:22; Start 12/24/18 at 11:00; Stop 12/27/18 at 09:21; Status DC Dobutamine HCl/ Dextrose 250 ml @ 0 mls/hr CONT PRN IV SEE COMMENTS; Start 12/24/18 at 11:00; Stop 12/28/18 at 17:04; Status DC Sodium Bicarbonate (Sodium Bicarb Adult 8.4% Syr) 100 meq 1X ONCE IV Last administered on 12/24/18at 11:16; Start 12/24/18 at 11:15; Stop 12/24/18 at 11:16; Status DC Phytonadione (Vitamin K Ampule) 5 mg 1X ONCE SQ Last administered on 12/24/18at 12:24; Start 12/24/18 at 11:15; Stop 12/24/18 at 11:22; Status DC Succinylcholine Chloride (Anectine) 200 mg STK-MED ONCE .ROUTE ; Start 12/24/18 at 11:20; Stop 12/24/18 at 11:21; Status DC Midazolam HCl (Versed) 5 mg STK-MED ONCE .ROUTE ; Start 12/24/18 at 11:21; Stop 12/24/18 at 11:21; Status DC Warfarin Sodium (Coumadin - No Dose Today) 1 each 1X WARF ONCE MC ; Start 12/24/18 at 16:00; Stop 12/24/18 at 22:25; Status DC Atropine Sulfate (ATROPINE 1mg SYRINGE) 1 mg STK-MED ONCE .ROUTE ; Start 12/24/18 at 11:30; Stop 12/24/18 at 11:30; Status DC Epinephrine HCl (Adrenalin) 1 mg STK-MED ONCE .ROUTE ; Start 12/24/18 at 11:30; Stop 12/24/18 at 11:30; Status DC Succinylcholine Chloride (Anectine) 60 mg 1X ONCE IV Last administered on 12/24/18at 12:04; Start 12/24/18 at 11:45; Stop 12/24/18 at 11:46; Status DC Midazolam HCl (Versed) 2 mg 1X ONCE IV Last administered on 12/24/18at 11:30; Start 12/24/18 at 11:45; Stop 12/24/18 at 11:46; Status DC Epinephrine HCl (EPINEPHrine SYRINGE) 1 mg 1X ONCE IV ; Start 12/24/18 at 11:45; Stop 12/24/18 at 11:46; Status DC Sodium Chloride 1,000 ml @ 1,000 mls/hr 1X ONCE IV ; Start 12/24/18 at 11:45; Stop 12/24/18 at 12:44; Status DC Midazolam HCl 100 ml @ 5 mls/hr CONT PRN IV SEE I/O RECORD Last administered on 12/25/18at 23:40; Start 12/24/18 at 12:00; Stop 12/27/18 at 09:21; Status DC Fentanyl Citrate 30 ml @ 0 mls/hr CONT PRN IV SEE PROTOCOL Last administered on 12/26/18at 05:26; Start 12/24/18 at 12:00; Stop 12/28/18 at 17:06; Status DC Midazolam HCl (Versed) 2 mg 1X ONCE IV ; Start 12/24/18 at 12:15; Stop 12/24/18 at 12:16; Status DC Metoclopramide HCl (Reglan Vial) 10 mg 1X ONCE IVP Last administered on 12/24/18at 15:00; Start 12/24/18 at 12:45; Stop 12/24/18 at 12:46; Status DC Vasopressin 40 unit/Dextrose 102 ml @ 6 mls/hr CONT PRN IV SEE I/O RECORD Last administered on 12/26/18at 12:38; Start 12/24/18 at 13:00; Stop 12/27/18 at 09:21; Status DC Albumin Human 500 ml @ As Directed STK-MED ONCE IV ; Start 12/24/18 at 14:37; Stop 12/24/18 at 14:37; Status DC Albumin Human 500 ml @ 125 mls/hr 1X ONCE IV Last administered on 12/24/18at 14:39; Start 12/24/18 at 14:45; Stop 12/24/18 at 18:44; Status DC Digoxin (Lanoxin) 500 mcg 1X ONCE IV Last administered on 12/24/18at 15:30; Start 12/24/18 at 15:30; Stop 12/24/18 at 15:31; Status DC Digoxin (Lanoxin) 500 mcg STK-MED ONCE .ROUTE ; Start 12/24/18 at 15:07; Stop 12/24/18 at 15:08; Status DC Phytonadione (Vitamin K Ampule) 10 mg 1X ONCE SQ Last administered on 12/24/18at 17:36; Start 12/24/18 at 15:45; Stop 12/24/18 at 15:49; Status DC Amiodarone HCl 150 mg/Dextrose 103 ml @ 618 mls/hr 1X ONCE IV Last administered on 12/24/18at 17:09; Start 12/24/18 at 16:00; Stop 12/24/18 at 16:09; Status DC Amiodarone HCl 900 mg/Dextrose 518 ml @ 0 mls/hr CONT PRN IV SEE I/O RECORD Last administered on 12/24/18at 17:55; Start 12/24/18 at 16:00; Stop 12/24/18 at 17:55; Status DC Phytonadione (Vitamin K Ampule) 10 mg 1X ONCE SQ ; Start 12/24/18 at 17:00; Stop 12/24/18 at 17:01; Status DC Potassium Chloride/Water 50 ml @ 50 mls/hr Q1H IV Last administered on 12/25/18at 12:37; Start 12/25/18 at 09:00; Stop 12/25/18 at 12:59; Status DC Potassium Chloride/Water 50 ml @ 0 mls/hr Q1H IV ; Start 12/25/18 at 08:30; Stop 12/25/18 at 11:31; Status UNV Info (Tpn Per Pharmacy) 1 each PRN DAILY PRN MC SEE COMMENTS Last administered on 12/30/18at 14:38; Start 12/25/18 at 09:45 Sodium Chloride 50 meq/Potassium Acetate 70 meq/ Potassium Phosphate 13.6 mmol/Magnesium Sulfate 10 meq/ Calcium Gluconate 10 meq/ Multivitamins 10 ml/Chromium/ Copper/Manganese/ Seleni/Zn 1 ml/ Total Parenteral Nutrition/Amino Acids/Dextrose/ Fat Emulsion Intravenous 1,512 ml @ 63 mls/hr TPN CONT IV Last administered on 12/25/18at 21:37; Start 12/25/18 at 22:00; Stop 12/26/18 at 21:59; Status DC Amiodarone HCl 900 mg/Dextrose 518 ml @ 17 mls/hr CONT PRN IV .; Start 12/25/18 at 20:00; Status Cancel Amiodarone HCl 900 mg/Dextrose 518 ml @ 0 mls/hr CONT PRN IV SEE I/O RECORD Last administered on 12/25/18at 20:15; Start 12/25/18 at 20:15; Stop 12/25/18 at 20:15; Status DC Aspirin (Aspirin Rectal Supp) 300 mg DAILY ME Last administered on 12/28/18at 09:20; Start 12/26/18 at 11:00 Amiodarone HCl 900 mg/Dextrose 518 ml @ 33 mls/hr CONT PRN IV SEE I/O RECORD; Start 12/26/18 at 12:45; Stop 12/27/18 at 01:06; Status DC Potassium Acetate 70 meq/Potassium Phosphate 17 mmol/ Magnesium Sulfate 10 meq/Calcium Gluconate 10 meq/ Multivitamins 10 ml/Chromium/ Copper/Manganese/ Seleni/Zn 1 ml/ Thiamine HCl 100 mg/Folic Acid 1 mg/Total Parenteral Nutrition/Amino Acids/Dextrose/ Fat Emulsion Intravenous 1,992 ml @ 83 mls/hr TPN CONT IV Last administered on 12/26/18at 21:53; Start 12/26/18 at 22:00; Stop 12/27/18 at 21:59; Status DC Heparin Sodium/ Dextrose 500 ml @ 18.72 mls/ hr CONT PRN IV PER PROTOCOL Last administered on 12/29/18at 13:10; Start 12/26/18 at 14:45; Stop 12/30/18 at 09:22; Status DC Heparin Sodium (Porcine) (Heparin Sodium) 1,950 unit PRN Q6HRS PRN IV FOR UFH LEVEL LESS THAN 0.2 Last administered on 12/30/18at 01:44; Start 12/26/18 at 14:45; Stop 12/30/18 at 09:22; Status DC Pantoprazole Sodium (PROTONIX VIAL for IV PUSH) 40 mg BID IVP Last administered on 12/31/18at 08:30; Start 12/26/18 at 21:00 Amiodarone HCl 450 mg/Dextrose 259 ml @ 17 mls/hr CONT PRN IV SEE I/O RECORD Last administered on 12/27/18at 19:19; Start 12/27/18 at 02:00 Potassium Acetate 85 meq/Potassium Phosphate 17 mmol/ Magnesium Sulfate 10 meq/Calcium Gluconate 10 meq/ Multivitamins 10 ml/Chromium/ Copper/Manganese/ Seleni/Zn 1 ml/ Thiamine HCl 100 mg/Folic Acid 1 mg/Total Parenteral Nutrition/Amino Acids/Dextrose/ Fat Emulsion Intravenous 1,992 ml @ 83 mls/hr TPN CONT IV Last administered on 12/27/18at 21:33; Start 12/27/18 at 22:00; Stop 12/28/18 at 21:59; Status DC Potassium Chloride/Water 100 ml @ 100 mls/hr Q1H IV Last administered on 12/28/18at 10:21; Start 12/28/18 at 09:00; Stop 12/28/18 at 10:59; Status DC Potassium Chloride/Water 50 ml @ 50 mls/hr DAILY IV ; Start 12/28/18 at 09:00; Status UNV Potassium Acetate 100 meq/Potassium Phosphate 20 mmol/ Magnesium Sulfate 13 meq/Calcium Gluconate 10 meq/ Multivitamins 10 ml/Chromium/ Copper/Manganese/ Seleni/Zn 1 ml/ Thiamine HCl 100 mg/Folic Acid 1 mg/Total Parenteral Nutrition/Amino Acids/Dextrose/ Fat Emulsion Intravenous 1,992 ml @ 83 mls/hr TPN CONT IV Last administered on 12/28/18at 21:31; Start 12/28/18 at 22:00; Stop 12/29/18 at 21:59; Status DC Ceftriaxone Sodium (Rocephin) 1 gm Q24H IVP Last administered on 12/31/18at 08:27; Start 12/29/18 at 08:00 Loperamide HCl (Immodium Oral Susp) 2 mg PRN Q30MIN PRN PEG DIARRHEA; Start 12/29/18 at 08:00 Potassium Acetate 120 meq/Potassium Phosphate 16 mmol/ Magnesium Sulfate 13 meq/Calcium Gluconate 10 meq/ Multivitamins 10 ml/Chromium/ Copper/Manganese/ Seleni/Zn 1 ml/ Thiamine HCl 100 mg/Folic Acid 1 mg/Sodium Chloride 20 meq/ Total Parenteral Nutrition/Amino Acids/Dextrose/ Fat Emulsion Intravenous 1,992 ml @ 83 mls/hr TPN CONT IV Last administered on 12/29/18at 22:17; Start 12/29/18 at 22:00; Stop 12/30/18 at 21:59; Status DC Enoxaparin Sodium (Lovenox 80mg Syringe) 80 mg Q12HR SQ Last administered on 12/31/18at 08:30; Start 12/30/18 at 12:00 Warfarin Sodium (Coumadin Per Pharmacy) 1 each PRN DAILY PRN MC SEE COMMENTS Last administered on 12/30/18at 14:44; Start 12/30/18 at 09:30 Potassium Acetate 120 meq/Potassium Phosphate 16 mmol/ Magnesium Sulfate 13 meq/Calcium Gluconate 10 meq/ Multivitamins 10 ml/Chromium/ Copper/Manganese/ Seleni/Zn 1 ml/ Thiamine HCl 100 mg/Folic Acid 1 mg/Sodium Chloride 20 meq/ Total Parenteral Nutrition/Amino Acids/Dextrose/ Fat Emulsion Intravenous 1,992 ml @ 83 mls/hr TPN CONT IV Last administered on 12/30/18at 21:38; Start 12/30/18 at 22:00; Stop 12/31/18 at 21:59 Warfarin Sodium (Coumadin) 7.5 mg 1X WARF ONCE PO ; Start 12/30/18 at 16:00; Stop 12/30/18 at 16:01; Status DC Enalaprilat (Vasotec Inj) 1.25 mg Q8HRS IVP Last administered on 12/31/18at 05:43; Start 12/30/18 at 22:00 Active Scripts Active Reported Lorazepam 1 Mg Tablet 1 Tab PO BID Percocet 7.5-325 Mg Tablet (Oxycodone/Acetaminophen) 1 Each Tablet 1 Tab PO PRN Q6HRS PRN Coumadin (Warfarin Sodium) 5 Mg Tablet 1 Tab PO DAILY Lisinopril 20 Mg Tablet 1 Tab PO DAILY Vitals/I & O Vital Sign - Last 24 Hours 12/30/18 12/30/18 12/30/18 12/30/18 11:19 12:05 13:19 15:00 Temp 98.6 98.8 98.6 98.8 Pulse 108 100 106 Resp 18 16 B/P (MAP) 132/80 (97) 153/83 164/80 (108) Pulse Ox 95 95 96 O2 Delivery Room Air Room Air Room Air 12/30/18 12/30/18 12/30/18 12/30/18 15:49 16:06 18:47 19:30 Temp 98.6 98.6 Pulse 107 101 104 Resp 20 B/P (MAP) 164/80 159/86 156/71 (99) Pulse Ox 98 O2 Delivery Room Air Room Air 12/30/18 12/30/18 12/30/18 12/30/18 19:30 20:25 21:00 21:36 Pulse 104 104 B/P (MAP) 156/71 156/71 Pulse Ox 94 O2 Delivery Room Air Room Air 12/30/18 12/31/18 12/31/18 12/31/18 22:40 00:27 03:01 05:42 Temp 99.3 98.3 99.3 98.3 Pulse 101 101 104 102 Resp 20 20 B/P (MAP) 162/83 (109) 162/83 165/82 (109) 163/82 Pulse Ox 96 95 O2 Delivery Room Air Room Air 12/31/18 12/31/18 12/31/18 05:43 07:00 08:10 Temp 98.3 98.3 Pulse 102 109 Resp 20 B/P (MAP) 163/82 156/74 (101) Pulse Ox 97 96 O2 Delivery Room Air Room Air Intake and Output 12/30/18 12/30/18 12/31/18 15:00 23:00 07:00 Intake Total 996 ml Output Total 900 ml 550 ml 1550 ml Balance -900 ml -550 ml -554 ml DESTINI GEIGER MD Dec 31, 2018 09:33
--- NOTE | 2018-12-31 09:47 | PDOC ---
PULMONARY PROGRESS NOTES Subjective PT WITH NO SIGN OF RESP DISTRESS CONFUSED Vitals Vital Signs Date Time Temp Pulse Resp B/P (MAP) Pulse Ox O2 Delivery O2 Flow Rate FiO2 12/31/18 08:10 96 Room Air 12/31/18 07:40 2.0 12/31/18 07:00 98.3 109 20 156/74 (101) 98.3 General: Alert Lungs: Other (dim in right base ) Cardiovascular: S1, S2 Abdomen: Soft Neuro Exam: Alert Extremities: Other Skin: Warm, Dry Labs Laboratory Tests Test 12/29/18 10:00 12/29/18 17:00 12/30/18 01:00 12/30/18 08:10 Heparin Anti-Xa Act, Unfractionated > 1.10 IU/mL (0.30-0.70) < 0.10 IU/mL (0.30-0.70) < 0.10 IU/mL (0.30-0.70) 0.14 IU/mL (0.30-0.70) White Blood Count 9.7 x10^3/uL (4.0-11.0) Red Blood Count 3.93 x10^6/uL (4.30-5.70) Hemoglobin 11.6 g/dL (13.0-17.5) Hematocrit 34.3 % (39.0-53.0) Mean Corpuscular Volume 87 fL (79-100) Mean Corpuscular Hemoglobin 30 pg (25-35) Mean Corpuscular Hemoglobin Concent 34 g/dL (31-37) Red Cell Distribution Width 17.6 % (11.5-14.5) Platelet Count 383 x10^3/uL (140-400) Neutrophils (%) (Auto) 72 % (31-73) Lymphocytes (%) (Auto) 11 % (24-48) Monocytes (%) (Auto) 12 % (0-9) Eosinophils (%) (Auto) 3 % (0-3) Basophils (%) (Auto) 2 % (0-3) Neutrophils # (Auto) 7.0 x10^3/uL (1.8-7.7) Lymphocytes # (Auto) 1.1 x10^3/uL (1.0-4.8) Monocytes # (Auto) 1.2 x10^3/uL (0.0-1.1) Eosinophils # (Auto) 0.3 x10^3/uL (0.0-0.7) Basophils # (Auto) 0.1 x10^3/uL (0.0-0.2) Test 12/30/18 11:40 12/30/18 18:02 12/31/18 06:05 Prothrombin Time 12.5 SEC (11.7-14.0) 12.4 SEC (11.7-14.0) Prothromb Time International Ratio 1.0 (0.8-1.1) 1.0 (0.8-1.1) Sodium Level 137 mmol/L (136-145) 133 mmol/L (136-145) Potassium Level 4.0 mmol/L (3.5-5.1) 5.2 mmol/L (3.5-5.1) Chloride Level 103 mmol/L (98-107) 101 mmol/L (98-107) Carbon Dioxide Level 25 mmol/L (21-32) 25 mmol/L (21-32) Anion Gap 9 (6-14) 7 (6-14) Blood Urea Nitrogen 15 mg/dL (8-26) 15 mg/dL (8-26) Creatinine 0.8 mg/dL (0.7-1.3) 0.8 mg/dL (0.7-1.3) Estimated GFR (Cockcroft-Gault) 99.6 99.6 Glucose Level 149 mg/dL (70-99) 121 mg/dL (70-99) Calcium Level 8.6 mg/dL (8.5-10.1) 8.6 mg/dL (8.5-10.1) Phosphorus Level 3.1 mg/dL (2.6-4.7) Magnesium Level 1.9 mg/dL (1.8-2.4) Albumin 2.8 g/dL (3.4-5.0) Laboratory Tests Test 12/30/18 11:40 12/30/18 18:02 12/31/18 06:05 Prothrombin Time 12.5 SEC (11.7-14.0) 12.4 SEC (11.7-14.0) Prothromb Time International Ratio 1.0 (0.8-1.1) 1.0 (0.8-1.1) Sodium Level 137 mmol/L (136-145) 133 mmol/L (136-145) Potassium Level 4.0 mmol/L (3.5-5.1) 5.2 mmol/L (3.5-5.1) Chloride Level 103 mmol/L (98-107) 101 mmol/L (98-107) Carbon Dioxide Level 25 mmol/L (21-32) 25 mmol/L (21-32) Anion Gap 9 (6-14) 7 (6-14) Blood Urea Nitrogen 15 mg/dL (8-26) 15 mg/dL (8-26) Creatinine 0.8 mg/dL (0.7-1.3) 0.8 mg/dL (0.7-1.3) Estimated GFR (Cockcroft-Gault) 99.6 99.6 Glucose Level 149 mg/dL (70-99) 121 mg/dL (70-99) Calcium Level 8.6 mg/dL (8.5-10.1) 8.6 mg/dL (8.5-10.1) Phosphorus Level 3.1 mg/dL (2.6-4.7) Magnesium Level 1.9 mg/dL (1.8-2.4) Albumin 2.8 g/dL (3.4-5.0) Medications Active Scripts Medications Dose Route/Sig Max Daily Dose Days Date Category Lorazepam 1 Mg Tablet 1 Tab PO BID 12/10/18 Reported Percocet 7.5-325 Mg Tablet (Oxycodone/Acetaminophen) 1 Each Tablet 1 Tab PO PRN Q6HRS PRN 12/10/18 Reported Coumadin (Warfarin Sodium) 5 Mg Tablet 1 Tab PO DAILY 10/06/17 Reported Lisinopril 20 Mg Tablet 1 Tab PO DAILY 10/06/17 Reported Impression . 1. Acute respiratory failure secondary to severe metabolic acidosis.--improved 2. Metabolic acidosis.-resolved 3. Septic shock versus acute volemic shock.--resolved 4. Leukocytosis----resolved 5. Acute drop in hemoglobin--- stable 6. Alcoholism ---- ongoing 7. Hyponatremia--- improved 8. Protein malnutrition 9. Metaboli/ toxic encephalopathy---- improved 10. Possible aspiration 11. Fever. 12. History of seizures. 13. Chronic obstructive pulmonary disease. 14. Hypertension. 15. Peripheral neuropathy. 16. Status post aortic valve replacement for aortic stenosis. 17. NON VARICEAL BLEED UPON EGD IMPRESSION: Cortically based cerebral edema is noted involving bifrontal lobes, right greater than left, as well as symmetric involvement of the bilateral occipital and parietal lobes. Differential considerations would include subacute ischemia from global hyperperfusion. Of note, there is not significant involvement of the basal ganglia as typically seen with cerebral hypoxic injury. Findings may also be seen with posterior reversible encephalopathy syndrome. There is no midline shift identified. Plan . OK TRANSFER TO [facility] ONCE REPEAT MRI IS COMPLETED EXTUBATED LESS CONFUSED ANTI BX PER ID YOHAN COWAN MD Dec 31, 2018 09:47
[2018-12-31] MEDS: TPN PER PHARMACY MC PRN (10:33)
--- NOTE | 2018-12-31 10:39 | NUR ---
Pharmacy TPN Dosing Note S: SHAW OG is a 58 year old M Currently receiving Central Continuous TPN started 12/25/18 B:Pertinent PMH: GI bleed; failed swallow study Height: 5 feet, 9 inches Weight: 75.9 kg Current diet: LABS: Sodium: 133 Potassium: 5.2 Chloride: 101 Calcium: 8.6 Corrected Calcium: 9.56 Magnesium: 1.9 CO2: 25 SCr: 0.8 Glucose: 121 Albumin: 2.8 AST: 75 ALT: 393 TPN FORMULA: TPN TYPE: Central Continuous AMINO ACIDS: 95 gm DEXTROSE: 250 gm LIPIDS: 20 gm SODIUM CHLORIDE: 70 mEq POTASSIUM ACETATE: 60 mEq POTASSIUM PHOSPHATE: 16 mmol MAGNESIUM: 13 mEq CALCIUM: 10 mEq MULTIPLE VITAMIN: 10 ml TRACE ELEMENTS: 1 ml(s) TPN PLAN: Potassium reduced to 60 mEq and sodium increased to 70 mEq in tonight's bag. Labs ordered for am. R: Change TPN per plan and ordered formula Will monitor electrolytes, glucose, and tolerance to TPN. Jing Garvey [facility], 12/31/18 [id number]
[2018-12-31 11:00] VITALS: BP 148/88
--- NOTE | 2018-12-31 11:22 | SNU/HH DC ---
DISCHARGE ORDERS DISCHARGE INFORMATION: FINAL DIAGNOSIS Problems Medical Problems: (1) Alcohol abuse Status: Acute (2) Closed head injury Status: Acute CONDITION ON DISCHARGE: Stable CODE STATUS: Code Status: Full SENIOR LIVING: SNF STAY <30 DAYS: No HOSPICE: HOSPICE: No HOSPICE EVAL & TREAT: No LTAC: ADMIT TO LTAC: Yes POST DISCHARGE ORDERS: ACTIVITY ORDERS: Bedrest today DIET AFTER DISCHARGE: Cardiac TREATMENT/EQUIPMENT ORDERS: Physical Therapy For: Evalulation/Treatment Occupational Therapy For: Evaluation/Treatment Speech Language Pathology For: Evaluation/Treatment DISCHARGE MEDICATIONS: Home Meds Reported Medications Lorazepam (LORAZEPAM) 1 Mg Tablet, 1 TAB PO BID for anxiety, #60 TAB 12/10/18 Oxycodone/Apap 7.5-325 (PERCOCET 7.5-325 MG TABLET ) 1 Each Tablet, 1 TAB PO PRN Q6HRS PRN for PAIN, TAB 0 Refills 12/10/18 Warfarin Sodium (COUMADIN) 5 Mg Tablet, 1 TAB PO DAILY, #90 TAB 1 Refill 10/06/17 Lisinopril (LISINOPRIL) 20 Mg Tablet, 1 TAB PO DAILY, #30 TAB 5 Refills 10/06/17 PAT SANABRIA III DO Dec 31, 2018 11:22
--- NOTE | 2018-12-31 11:24 | PDOC ---
Subjective: Subjective: Says he's doing okay. Apparently eating - family says diet just ordered. Objective: Objective: D/w nurse - DC to [facility] today w/ rectal tube, to start dysphagia II diet, has brain MRI ordered. Vital Signs: Vital Signs Date Time Temp Pulse Resp B/P (MAP) Pulse Ox O2 Delivery O2 Flow Rate FiO2 12/31/18 11:00 98.0 107 18 148/88 (108) 97 Room Air 98.0 12/31/18 07:40 2.0 Labs: Laboratory Tests Test 12/30/18 11:40 12/30/18 18:02 12/31/18 06:05 Prothrombin Time 12.5 SEC 12.4 SEC Prothromb Time International Ratio 1.0 1.0 Sodium Level 137 mmol/L 133 mmol/L Potassium Level 4.0 mmol/L 5.2 mmol/L Chloride Level 103 mmol/L 101 mmol/L Carbon Dioxide Level 25 mmol/L 25 mmol/L Anion Gap 9 7 Blood Urea Nitrogen 15 mg/dL 15 mg/dL Creatinine 0.8 mg/dL 0.8 mg/dL Estimated GFR (Cockcroft-Gault) 99.6 99.6 Glucose Level 149 mg/dL 121 mg/dL Calcium Level 8.6 mg/dL 8.6 mg/dL Phosphorus Level 3.1 mg/dL Magnesium Level 1.9 mg/dL Albumin 2.8 g/dL PE: GEN: NAD LUNGS: CTAB HEART: tachycardic ABD: S/ND/NT, dark liquid/soft stool in rectal tube NEURO/PSYCH: better today A/P: Encephalopathy Dysphagia - improved, on TPN Distal esophageal bleeding s/p clips Anemia, coagulopathy - improved S/p AVR - Warfarin restarted -- DC per primary on PO PPI, diet per [employer] WORKER. GABRIEL BRIDGES Dec 31, 2018 11:24
--- NOTE | 2018-12-31 11:53 | RAD ---
Examination: PORTABLE CHEST 1V History: Respiratory failure Comparison/Correlation: 12/30/2018 Portable Chest X-ray Exam Findings: Portable upright frontal view the chest was obtained. Sternal wires are present. Prosthetic cardiac valves are band is present. Right-sided PICC is present. Heart size and pulmonary vessels are normal. No infiltrate or pleural effusion. No pneumothorax. Impression: No acute process. Electronically signed by: Momo Rosario MD (12/31/2018 11:50 AM) [facility]
--- NOTE | 2018-12-31 12:02 | NUR ---
SS following up with discharge planning. Discharge orders and updated clinical phoned and faxed to [facility], ; fax [phone]. [facility] notified. SS awaiting notification that bed is available and will proceed accordingly with discharge.
--- NOTE | 2018-12-31 12:03 | PDOC ---
[employer] PROGRESS NOTE Chief Complaint Chief Complaint Acute hypoxic Respiratory failure, now extubated Fall ETOH withdrawal , severe Metabolic and Toxic encephalopathy Tachycardia Severe alcohol abuse Dysphagia Fever Hyponatremia Fall risk Mild aneurysmal dilation of the ascending aorta History of Present Illness History of Present Illness Mr Mckinney is a 58yo M w/ PMHx COPD, GERD, TIA, peripheral neuropathy, ETOH abuse, chronic pain, anxiety and depression, HTN, HLD, Afib, BPH, mitral insufficiency, s/p aortic valve replacement with mechanical valve who was admitted on on 12/10/18 after a fall down the stairs with a scalp laceration, found with sodium of 119 and active GI bleed requiring vitamin K, 4 units of FFP and 6 total units of blood. He also had respiratory failure, was intubated and was extubated on 12/27/18. Feeling better today. He is worried about a foul smell/taste when he receives his antibiotics and is concerned about his vision, feels it is not clear. BLADDER TIER still recommends holding PO. Tolerating TPN well. 12-31-18 Patient seen and examined discussed with his son and the RN chart reviewed [id number] Patient seen and examined Discussed with his son and the RN Chart reviewed 12/28/18 Pt was examined in ICU Pt was sitting upright in chair Pt was pleasant and able to converse Rectal bag present Charts and labs reviewed D/w RN and Speech therapist Pt did not pass swallow test and was not fully cooperative K+ was 3.3, down from 3.6 Na+ was 145, down from 150 12/27/18 Pt seen and examined in ICU Pt was extubated 10 mins ago and is able to say a couple words but is still pleasantly confused Discussed with family the improved prognosis of the pt Charts and labs reviewed MRI from yesterday: Cortically based cerebral edema is noted involving bifrontal lobes, right greater than left, as well as symmetric involvement of the bilateral occipital and parietal lobes. Differential considerations would include subacute ischemia from global hyperperfusion. Of note, there is not significant involvement of the basal ganglia as typically seen with cerebral hypoxic injury. Findings may also be seen with posterior reversible encephalopathy syndrome DW RN 12/26/18 Pt seen and examined in ICU Pt remains sedated and intubated Pupils are equal round, reactive, and sensitive to light Charts and labs reviewed Talked to son about the pt's condition, stating that his CT results have changed and may indicate multiple infarcts but that we will be following up with an MRI to get conclusive results. Pt's son was understanding. AC /3.0/35% 5.0 PEEP AST 519, down from 1390 ALT 982, down from 1059 DW RN and son 12/25/18 Pt seen and examined in the ICU Sedated and intubated Was resting in bed Charts and labs reviewed AC 500/3.0/35% 5.0 PEEP AST 1390, ALT 1059 Poor prognosis DW RN 12/24/18 Pt seen and examined bedside INC soa, tachy, dark stool x 2 altered mental status Was resting in BED DW RN; Charts and labs reviewed Replace potassium Failed swallow test Poor prognosis Check serum osmolality 12/17/18 Pt seen and examined in ICU PT still sedated PEGGY RN that she tried to wean the patient off of Precedex but he continued to be combative so she had to continue the sedation meds Consulted neurology to make sure there isn't other pathology causing his mental status change Charts and labs reviewed NA 143 12/16/18 Pt seen and examined in the ICU Pt is sedated with IV Precedex PEGGY RN Pt was combative in the morning Charts and labs reviewed Na: 140 12/15/18 Pt seen and examined in the ICU Pt's son was seen leaving the room Pt is still sedated with Precedex Pt requested pain medications Chart and labs reviewed Hyponatremia resolved Pt is bradycardic with rate of 50 D/w RN 12/14/18 Pt seen and examined in the ICU Pt still sedated with Precedex INR 1.1 Hyponatremia has resolved PEGGY RN Reviewed chart 12/13/18 Pt seen and examined in the ICU Pt was combative and trying to get out of bed all morning. Pt was given Ativan, Haldol, Benadryl, Zyprexa and finally Fentanyl for patient safety. He was comfortably snoring. Discussed with son who was glad to see the pt finally asleep. PEGGY AVALOS Vitals/I&O Vitals/I&O: Vital Signs Date Time Temp Pulse Resp B/P (MAP) Pulse Ox O2 Delivery O2 Flow Rate FiO2 12/31/18 11:36 Room Air 12/31/18 11:00 98.0 107 18 148/88 (108) 97 98.0 12/31/18 07:40 2.0 I & O 12/30/18 12/30/18 12/31/18 14:59 22:59 06:59 Intake Total 996 ml Output Total 900 ml 550 ml 1550 ml Balance -900 ml -550 ml -554 ml Physical Exam Physical Exam: GENERAL: resting quietly, HEENT: Oral cavity dry, poor dentition NECK: Supple. LUNGS: Clear anteriorly HEART: S1, S2. ABDOMEN: Obese, soft, no guarding, bowel sounds present. Rectal tube : Peng EXTREMITIES: No gross edema or cyanosis. Scabs left knee - no redness/warmth/swelling SKIN: Warm to touch. No signs of rash. some healing scraps/echymosis NEUROLOGIC: awake and appropriate, no focal deficit RUE PICC - clean General: Alert, Cooperative, No acute distress Heart: Regular rate, Normal S1, Normal S2, No murmurs, Other Lungs: Other (dim in right base ) Abdomen: Normal bowel sounds, Soft, No tenderness, No masses (HEPATOMEGALY) Extremities: No cyanosis, Other (trace bilateral LE edema ) Skin: No rashes, No significant lesion Labs Labs: Laboratory Tests Test 12/30/18 18:02 12/31/18 06:05 Sodium Level 137 mmol/L (136-145) 133 mmol/L (136-145) Potassium Level 4.0 mmol/L (3.5-5.1) 5.2 mmol/L (3.5-5.1) Chloride Level 103 mmol/L (98-107) 101 mmol/L (98-107) Carbon Dioxide Level 25 mmol/L (21-32) 25 mmol/L (21-32) Anion Gap 9 (6-14) 7 (6-14) Blood Urea Nitrogen 15 mg/dL (8-26) 15 mg/dL (8-26) Creatinine 0.8 mg/dL (0.7-1.3) 0.8 mg/dL (0.7-1.3) Estimated GFR (Cockcroft-Gault) 99.6 99.6 Glucose Level 149 mg/dL (70-99) 121 mg/dL (70-99) Calcium Level 8.6 mg/dL (8.5-10.1) 8.6 mg/dL (8.5-10.1) Phosphorus Level 3.1 mg/dL (2.6-4.7) Magnesium Level 1.9 mg/dL (1.8-2.4) Albumin 2.8 g/dL (3.4-5.0) Prothrombin Time 12.4 SEC (11.7-14.0) Prothromb Time International Ratio 1.0 (0.8-1.1) Review of Systems Review of Systems: Patient denies SOB Patient denies N/V Assessment and Plan Assessmemt and Plan Problems Medical Problems: (1) Alcohol abuse Status: Acute (2) Closed head injury Status: Acute Assessment: Acute hypoxic respiratory failure, ETOH withdrawal, sever metabolic and toxic encephalopathy, tachycardia, severe alcohol abuse, dysphagia, Hyp onatremia, aneurysmal dilation of the ascending aorta. Plan: 1. Discharge to LTAC today Comment Review of Relevant I have reviewed the following items robert (where applicable) has been applied. Medications: Current Medications Medications (Trade) Dose Ordered Sig/Siddharth Route PRN Reason Start Time Stop Time Status Last Admin Dose Admin Enoxaparin Sodium (Lovenox 80mg Syringe) 80 mg Q12HR SQ 12/30/18 12:00 12/31/18 08:30 Potassium Acetate 120 meq/Potassium Phosphate 16 mmol/ Magnesium Sulfate 13 meq/Calcium Gluconate 10 meq/ Multivitamins 10 ml/Chromium/ Copper/Manganese/ Seleni/Zn 1 ml/ Thiamine HCl 100 mg/Folic Acid 1 mg/Sodium Chloride 20 meq/ Total Parenteral Nutrition/Amino Acids/Dextrose/ Fat Emulsion Intravenous 1,992 ml @ 83 mls/hr TPN CONT IV 12/30/18 22:00 12/31/18 21:59 12/30/18 21:38 Enalaprilat (Vasotec Inj) 1.25 mg Q8HRS IVP 12/30/18 22:00 12/31/18 05:43 PAT SANABRIA III DO Dec 31, 2018 12:02
[2018-12-31] MEDS: PANTOPRAZOLE 40 MG TABLET.DR. PO SCH (12:21)
--- NOTE | 2018-12-31 12:52 | NUR ---
Pharmacy Warfarin Dosing Note S: Pharmacy consulted to assist with anticoagulation therapy O: SHAW OG is a 58 year old M with Mechanical Aortic Valve LABS: Last INR: 1.0 Last HGB: 11.6 Last HCT: 34.3 Last PLT: 383 Last dose of Hold given on 12/30/18 at 1600 A:INR of 1.0 is below desired range. Target range for this patient is: 2 -3 P: Warfarin dose: 7.5 mg Today at 1600 Bridge Therapy: Enoxaparin 1 mg/kg q12h Next INR due tomorrow Pharmacy anticoagulation service will continue to follow. Jing Garvey Cristian, 12/31/18 [id number]
[2018-12-31 14:56] VITALS: BP 150/79
--- NOTE | 2018-12-31 15:32 | RAD ---
MRI Brain without contrast History: Cerebral edema Technique: Multiplanar, multisequential noncontrast MR imaging was performed of the brain. Comparison: 12/26/2018 Findings: There are prominent areas of T2 and FLAIR hyperintense signal abnormality with corresponding diffusion signal change of the occipital temporal lobes extending to parasagittal parietal lobes, also separate focus of right frontal lobe and very minimally of the left frontal lobe. On ADC map, there are some areas which are somewhat hypointense most notable of the occipital temporal lobes near the cortical surfaces somewhat greater than previously. There is also some associated variable decreased signal on gradient echo sequence also mostly along the cortical surfaces of the occipital temporal and parasagittal parietal lobes. There is sulcal effacement at sites of signal change. Degree of signal abnormality such as of the right frontal lobe and of the right periatrial white matter with associated mild increased mass effect. There is generalized supratentorial atrophy, ventricular size partially to the sulcal spaces. 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 There is small left sphenoid sinus mucous retention cyst. There are mucous retention cysts of the maxillary sinuses greater on the right as seen previously. There is left greater than right ethmoid air cell mucosal thickening. There is preservation of the major arterial intracranial flow voids at the skull base. There is patchy [id number] fluid and thickening of the mastoid air cells greater on the right as seen previously. Impression: 1. There are persistent prominent areas of signal abnormality greatest of the occipital temporal lobes extending to the parasagittal parietal lobes, also foci of the frontal lobes greater on the right. Signal abnormality has somewhat increased of the right periatrial white matter and right frontal lobe, also increased foci of petechial hemorrhage greatest of the occipital temporal lobes and parasagittal parietal lobes. There is again associated degree of diffusion signal change, some areas more hypointense on the ADC near the cortical surfaces as may be seen with infarction/cytotoxic edema. While findings again could be seen with sequela of posterior reversible encephalopathy syndrome, there has been no significant improvement in the interval. Sequela of cerebral contusions would be in the differential considerations. Sequela of infectious etiology/encephalitis is not excluded by imaging. 2. There are patchy fluid and thickening of the mastoid air cells. 3. 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 There is generalized supratentorial atrophy. Findings discussed with patient's nurse Jesus at 12/31/2018 2:50 PM. FOR INTERNAL CODING PURPOSES RESULT CODE: (C) Electronically signed by: Jason Badillo MD (12/31/2018 3:29 PM) [id number]
[2018-12-31] MEDS ORDERED: WARFARIN 7.5 MG TABLET. PO ONE (16:00)
[2018-12-31 18:51] VITALS: BP 138/70
[2018-12-31] MEDS ORDERED: [UNRECOGNIZED DRUG - OTHER] IV SCH ×12 (22:00)
[2018-12-31] MEDS ORDERED: AMINO ACID IV SCH ×12 (22:00)
[2018-12-31] MEDS ORDERED: TOTAL PARENTERAL NUTRITION IV SCH ×12 (22:00)
[2018-12-31] MEDS ORDERED: DEXTROSE 70% IV SCH ×12 (22:00)
[2018-12-31 23:00] VITALS: BP 140/84
[2019-01-01 03:00] VITALS: BP 145/72
[2019-01-01] MEDS: hydrALAZINE 20 MG/ML VIAL. IVP SCH ×4 (06:00→17:34)
[2019-01-01] MEDS: ENALAPRILAT 2.5 MG/2 ML VIAL. IVP SCH ×2 (06:00→13:58)
[2019-01-01 07:00] VITALS: BP 163/76
[2019-01-01 07:13] LABS: PROTHROMBIN TIME PATIENT 12.4 SEC (11.7-14.0)
[2019-01-01 07:39] LABS: CALCIUM 8.7 mg/dL (8.5-10.1); CREATININE 0.8 mg/dL (0.7-1.3); GFR 99.6; MAGNESIUM 1.8 mg/dL (1.8-2.4); PHOSPHORUS 4.4 mg/dL (2.6-4.7); POTASSIUM 4.1 mmol/L (3.5-5.1)
[2019-01-01] MEDS: CALCIUM CARBONATE 500 MG TABLET PO SCH ×3 (08:16→17:34)
[2019-01-01] MEDS: PANTOPRAZOLE 40 MG TABLET.DR. PO SCH (08:16)
[2019-01-01] MEDS: SCOPOLAMINE 1.5MG PATCH. TD SCH (08:17)
[2019-01-01] MEDS: cefTRIAXone IV Push 1 GM VIAL. IVP SCH (08:17)
[2019-01-01] MEDS: METOPROLOL TART IMMED RELEASE 25 MG TABLET. PO SCH (08:17)
[2019-01-01] MEDS: LORazepam 1 MG TABLET PO SCH (08:17)
[2019-01-01] MEDS: NICOTINE 21MG PATCH. TD SCH (08:18)
--- NOTE | 2019-01-01 08:18 | NUR ---
SS following up with discharge planning. [facility] contacted SS and reported that bed was available tonight and requested that SS arrange transport for 1899. SS contacted [facility] ambulance, , and scheduled transportation for [id number]. Pt, pt's RN, and pt's family notified. Pt will discharge tonight and go to [facility] at 1845.
[2019-01-01] MEDS: IPRATRPIUM/ALBUTEROL 0.5/2.5MG 3 ML NEBU. NEB SCH ×3 (08:31→16:13)
--- NOTE | 2019-01-01 08:59 | PDOC ---
Infectious Disease Note Subjective Subjective awake, speaking and much improved ROS ROS no n/v/d/sob Vital Sign Vital Signs Vital Signs Date Time Temp Pulse Resp B/P (MAP) Pulse Ox O2 Delivery O2 Flow Rate FiO2 01/01/19 08:33 99 Room Air 01/01/19 08:17 108 163/76 01/01/19 07:00 98.6 20 98.6 12/31/18 07:40 2.0 Physical Exam PHYSICAL EXAM GENERAL: resting quietly, HEENT: Oral cavity dry, poor dentition NECK: Supple. LUNGS: Clear anteriorly HEART: S1, S2. ABDOMEN: Obese, soft, no guarding, bowel sounds present. Rectal tube : Peng EXTREMITIES: No gross edema or cyanosis. Scabs left knee - no redness/warmth/swelling SKIN: Warm to touch. No signs of rash. some healing scraps/echymosis NEUROLOGIC: awake and appropriate, no focal deficit RUE PICC - clean Labs Lab Laboratory Tests Test 01/01/19 06:55 Prothrombin Time 12.4 SEC (11.7-14.0) Prothromb Time International Ratio 1.0 (0.8-1.1) Sodium Level 136 mmol/L (136-145) Potassium Level 4.1 mmol/L (3.5-5.1) Chloride Level 103 mmol/L (98-107) Carbon Dioxide Level 24 mmol/L (21-32) Anion Gap 9 (6-14) Blood Urea Nitrogen 16 mg/dL (8-26) Creatinine 0.8 mg/dL (0.7-1.3) Estimated GFR (Cockcroft-Gault) 99.6 Glucose Level 118 mg/dL (70-99) Calcium Level 8.7 mg/dL (8.5-10.1) Phosphorus Level 4.4 mg/dL (2.6-4.7) Magnesium Level 1.8 mg/dL (1.8-2.4) Micro Microbiology 12/24/18 Blood Culture - Preliminary, Resulted NO GROWTH AFTER 4 DAYS 12/20/18 Urine Culture - Final, Complete 12/20/18 Urine Culture Result 1 (AMARA) - Final, Complete Objective Assessment UGI bleed s/p EGD 12/24 - Non-variceal bleeding, distal esophagus. Inflammatory/Dieulafoy possible, aggravated by coagulopathy. -S/P PRBCs 12/24 12/25 Acute Resp failure - intubated 12/24 - blood seen on intubation Afib on Amiodarone Transaminitis - ? reactive vs med/TPN vs other - nml lipase Encephaloapathy Fever ? aspiration, PRBCs, infection -better Leukocytosis - better - nml lactic Suspected aspiration Sinusitis Dysphagia failed bedside swallow Recent Alcohol withdrawal s/p fall while intoxicated ? seizure Coagualopathy - Appreciated Heme eval Valvular disorder - Aortic stenosis s/p mechanical aortic valve - cults neg CAD Encephalopathy, likely posterior reversible encephalopathy syndrome Plan Plan of Care antibiotics rocephine D/w nursing LTAC today TAE GELLER MD Jan 01, 2019 08:59
--- NOTE | 2019-01-01 09:17 | PDOC ---
PULMONARY PROGRESS NOTES Subjective PT WITH NO SIGN OF RESP DISTRESS CONFUSED Vitals Vital Signs Date Time Temp Pulse Resp B/P (MAP) Pulse Ox O2 Delivery O2 Flow Rate FiO2 01/01/19 08:33 99 Room Air 01/01/19 08:17 108 163/76 01/01/19 07:00 98.6 20 98.6 12/31/18 07:40 2.0 General: Alert Lungs: Other (dim in right base ) Cardiovascular: S1, S2 Abdomen: Soft Neuro Exam: Alert Extremities: Other Skin: Warm, Dry Labs Laboratory Tests Test 12/30/18 11:40 12/30/18 18:02 12/31/18 06:05 01/01/19 06:55 Prothrombin Time 12.5 SEC (11.7-14.0) 12.4 SEC (11.7-14.0) 12.4 SEC (11.7-14.0) Prothromb Time International Ratio 1.0 (0.8-1.1) 1.0 (0.8-1.1) 1.0 (0.8-1.1) Sodium Level 137 mmol/L (136-145) 133 mmol/L (136-145) 136 mmol/L (136-145) Potassium Level 4.0 mmol/L (3.5-5.1) 5.2 mmol/L (3.5-5.1) 4.1 mmol/L (3.5-5.1) Chloride Level 103 mmol/L (98-107) 101 mmol/L (98-107) 103 mmol/L (98-107) Carbon Dioxide Level 25 mmol/L (21-32) 25 mmol/L (21-32) 24 mmol/L (21-32) Anion Gap 9 (6-14) 7 (6-14) 9 (6-14) Blood Urea Nitrogen 15 mg/dL (8-26) 15 mg/dL (8-26) 16 mg/dL (8-26) Creatinine 0.8 mg/dL (0.7-1.3) 0.8 mg/dL (0.7-1.3) 0.8 mg/dL (0.7-1.3) Estimated GFR (Cockcroft-Gault) 99.6 99.6 99.6 Glucose Level 149 mg/dL (70-99) 121 mg/dL (70-99) 118 mg/dL (70-99) Calcium Level 8.6 mg/dL (8.5-10.1) 8.6 mg/dL (8.5-10.1) 8.7 mg/dL (8.5-10.1) Phosphorus Level 3.1 mg/dL (2.6-4.7) 4.4 mg/dL (2.6-4.7) Magnesium Level 1.9 mg/dL (1.8-2.4) 1.8 mg/dL (1.8-2.4) Albumin 2.8 g/dL (3.4-5.0) Laboratory Tests Test 01/01/19 06:55 Prothrombin Time 12.4 SEC (11.7-14.0) Prothromb Time International Ratio 1.0 (0.8-1.1) Sodium Level 136 mmol/L (136-145) Potassium Level 4.1 mmol/L (3.5-5.1) Chloride Level 103 mmol/L (98-107) Carbon Dioxide Level 24 mmol/L (21-32) Anion Gap 9 (6-14) Blood Urea Nitrogen 16 mg/dL (8-26) Creatinine 0.8 mg/dL (0.7-1.3) Estimated GFR (Cockcroft-Gault) 99.6 Glucose Level 118 mg/dL (70-99) Calcium Level 8.7 mg/dL (8.5-10.1) Phosphorus Level 4.4 mg/dL (2.6-4.7) Magnesium Level 1.8 mg/dL (1.8-2.4) Medications Active Scripts Medications Dose Route/Sig Max Daily Dose Days Date Category Lorazepam 1 Mg Tablet 1 Tab PO BID 12/10/18 Reported Percocet 7.5-325 Mg Tablet (Oxycodone/Acetaminophen) 1 Each Tablet 1 Tab PO PRN Q6HRS PRN 12/10/18 Reported Coumadin (Warfarin Sodium) 5 Mg Tablet 1 Tab PO DAILY 10/06/17 Reported Lisinopril 20 Mg Tablet 1 Tab PO DAILY 10/06/17 Reported Impression . 1. Acute respiratory failure secondary to severe metabolic acidosis.--improved 2. Metabolic acidosis.-resolved 3. Septic shock versus acute volemic shock.--resolved 4. Leukocytosis----resolved 5. Acute drop in hemoglobin--- stable 6. Alcoholism ---- ongoing 7. Hyponatremia--- improved 8. Protein malnutrition 9. Metaboli/ toxic encephalopathy---- improved 10. Possible aspiration 11. Fever. 12. History of seizures. 13. Chronic obstructive pulmonary disease. 14. Hypertension. 15. Peripheral neuropathy. 16. Status post aortic valve replacement for aortic stenosis. 17. NON VARICEAL BLEED UPON EGD IMPRESSION: Cortically based cerebral edema is noted involving bifrontal lobes, right greater than left, as well as symmetric involvement of the bilateral occipital and parietal lobes. Differential considerations would include subacute ischemia from global hyperperfusion. Of note, there is not significant involvement of the basal ganglia as typically seen with cerebral hypoxic injury. Findings may also be seen with posterior reversible encephalopathy syndrome. There is no midline shift identified. Plan . OK TRANSFER TO [facility] ON[facility] REPEAT MRI IS COMPLETED EXTUBATED LESS CONFUSED ANTI BX PER YOHAN DYSON MD Jan 01, 2019 09:17
--- NOTE | 2019-01-01 10:45 | NUR ---
Pharmacy Warfarin Dosing Note S: Pharmacy consulted to assist with anticoagulation therapy O: SHAW OG is a 58 year old M with Mechanical Aortic Valve LABS: Last INR: 1.0 Last HGB: 11.6 Last HCT: 34.3 Last PLT: 383 Last dose of 7.5 mg given on 12/31/18 at 1603 A:INR of 1.0 is below desired range. Target range for this patient is: 2 -3 P: Warfarin dose: 7.5 mg Today at 1600 Bridge Therapy: Enoxaparin 1 mg/kg q12h Next INR due tomorrow Pharmacy anticoagulation service will continue to follow. Jing Garvey RPH, 01/01/19 [id number]
[2019-01-01 11:00] VITALS: BP 127/76
--- NOTE | 2019-01-01 12:29 | PDOC ---
[facility] PROGRESS NOTE Chief Complaint Chief Complaint Acute hypoxic Respiratory failure, now extubated Fall ETOH withdrawal , severe Metabolic and Toxic encephalopathy Tachycardia Severe alcohol abuse Dysphagia Fever Hyponatremia Fall risk Mild aneurysmal dilation of the ascending aorta History of Present Illness History of Present Illness Mr Mckinney is a 58yo M w/ PMHx COPD, GERD, TIA, peripheral neuropathy, ETOH abuse, chronic pain, anxiety and depression, HTN, HLD, Afib, BPH, mitral insufficiency, s/p aortic valve replacement with mechanical valve who was admitted on on 12/10/18 after a fall down the stairs with a scalp laceration, found with sodium of 119 and active GI bleed requiring vitamin K, 4 units of FFP and 6 total units of blood. He also had respiratory failure, was intubated and was extubated on 12/27/18. Feeling better today. He is worried about a foul smell/taste when he receives his antibiotics and is concerned about his vision, feels it is not clear. RELIEF MAP MODELER still recommends holding PO. Tolerating TPN well. 01-01-19 Patient seen and examined discussed with RN and Great aunt chart reviewed 12-31-18 Patient seen and examined discussed with his son and the RN chart reviewed [id number] Patient seen and examined Discussed with his son and the RN Chart reviewed 12/28/18 Pt was examined in ICU Pt was sitting upright in chair Pt was pleasant and able to converse Rectal bag present Charts and labs reviewed D/w RN and Speech therapist Pt did not pass swallow test and was not fully cooperative K+ was 3.3, down from 3.6 Na+ was 145, down from 150 12/27/18 Pt seen and examined in ICU Pt was extubated 10 mins ago and is able to say a couple words but is still pleasantly confused Discussed with family the improved prognosis of the pt Charts and labs reviewed MRI from yesterday: Cortically based cerebral edema is noted involving bifrontal lobes, right greater than left, as well as symmetric involvement of the bilateral occipital and parietal lobes. Differential considerations would include subacute ischemia from global hyperperfusion. Of note, there is not significant involvement of the basal ganglia as typically seen with cerebral hypoxic injury. Findings may also be seen with posterior reversible encephalopathy syndrome DW RN 12/26/18 Pt seen and examined in ICU Pt remains sedated and intubated Pupils are equal round, reactive, and sensitive to light Charts and labs reviewed Talked to son about the pt's condition, stating that his CT results have changed and may indicate multiple infarcts but that we will be following up with an MRI to get conclusive results[place] [address]/3.0/35% 5.0 PEEP AST 519, down from 1390 ALT 982, down from 1059 DW RN and son 12/25/18 Pt seen and examined in the ICU Sedated and intubated Was [place] in [place] [address]/3.0/35% 5.0 PEEP AST 1390, ALT 1059 Poor prognosis DW RN 12/24/18 Pt seen and examined bedside INC soa, tachy, dark stool x 2 altered mental status Was resting in BED DW RN; Charts and labs reviewed Replace potassium Failed swallow test Poor prognosis Check serum osmolality 12/17/18 Pt seen and examined in ICU PT still sedated PEGGY RN that she tried to wean the patient off of Precedex but he continued to be combative so she had to continue the sedation meds Consulted neurology to make sure there isn't other pathology causing his mental status change Charts and labs reviewed NA 143 12/16/18 Pt seen and examined in the ICU Pt is sedated with IV Precedex PEGGY RN Pt was combative in the morning Charts and labs reviewed Na: 140 12/15/18 Pt seen and examined in the ICU Pt's son was seen leaving the room Pt is still sedated with Precedex Pt requested pain medications Chart and labs reviewed Hyponatremia resolved Pt is bradycardic with rate of 50 D/w RN 12/14/18 Pt seen and examined in the ICU Pt still sedated with Precedex INR 1.1 Hyponatremia has resolved PEGGY RN Reviewed chart 12/13/18 Pt seen and examined in the ICU Pt was combative and trying to get out of bed all morning. Pt was given Ativan, Haldol, Benadryl, Zyprexa and finally Fentanyl for patient safety. He was comfortably snoring. Discussed with son who was glad to see the pt finally asleep. PEGGY AVALOS Vitals/I&O Vitals/I&O: Vital Signs Date Time Temp Pulse Resp B/P (MAP) Pulse Ox O2 Delivery O2 Flow Rate FiO2 01/01/19 11:28 99 Room Air 01/01/19 11:00 98.1 92 20 127/76 (93) 98.1 12/31/18 07:40 2.0 I & O 12/31/18 12/31/18 01/01/19 15:00 23:00 07:00 Intake Total 0 ml 60 ml Output Total 2050 ml Balance 0 ml -1990 ml Physical Exam Physical Exam: GENERAL: resting quietly, HEENT: Oral cavity dry, poor dentition NECK: Supple. LUNGS: Clear anteriorly HEART: S1, S2. ABDOMEN: Obese, soft, no guarding, bowel sounds present. Rectal tube : Peng EXTREMITIES: No gross edema or cyanosis. Scabs left knee - no redne ss/warmth/swelling SKIN: Warm to touch. No signs of rash. some healing scraps/echymosis NEUROLOGIC: awake and appropriate, no focal deficit RUE PICC - clean General: Alert, Cooperative, No acute distress Heart: Regular rate, Normal S1, Normal S2, No murmurs, Other Lungs: Other (dim in right base ) Abdomen: Normal bowel sounds, Soft, No tenderness, No masses (HEPATOMEGALY) Extremities: No cyanosis, Other (trace bilateral LE edema ) Skin: No rashes, No significant lesion Labs Labs: Laboratory Tests Test 01/01/19 06:55 Prothrombin Time 12.4 SEC (11.7-14.0) Prothromb Time International Ratio 1.0 (0.8-1.1) Sodium Level 136 mmol/L (136-145) Potassium Level 4.1 mmol/L (3.5-5.1) Chloride Level 103 mmol/L (98-107) Carbon Dioxide Level 24 mmol/L (21-32) Anion Gap 9 (6-14) Blood Urea Nitrogen 16 mg/dL (8-26) Creatinine 0.8 mg/dL (0.7-1.3) Estimated GFR (Cockcroft-Gault) 99.6 Glucose Level 118 mg/dL (70-99) Calcium Level 8.7 mg/dL (8.5-10.1) Phosphorus Level 4.4 mg/dL (2.6-4.7) Magnesium Level 1.8 mg/dL (1.8-2.4) Review of Systems Review of Systems: patient denies SOB or N/V Assessment and Plan Assessmemt and Plan Problems Medical Problems: (1) Alcohol abuse Status: Acute (2) Closed head injury Status: Acute Assessment: Alcohol Abuse, Closed head injury, Hyponatremia Plan: 1. Discharge to LTAC today Comment Review of Relevant I have reviewed the following items robert (where applicable) has been applied. Medications: Current Medications Medications (Trade) Dose Ordered Sig/Siddharth Route PRN Reason Start Time Stop Time Status Last Admin Dose Admin Sodium Chloride 70 meq/Potassium Acetate 60 meq/ Potassium Phosphate 16 mmol/ Magnesium Sulfate 13 meq/Calcium Gluconate 10 meq/ Multivitamins 10 ml/Chromium/ Copper/Manganese/ Seleni/Zn 1 ml/ Thiamine HCl 100 mg/Folic Acid 1 mg/Total Parenteral Nutrition/Amino Acids/Dextrose/ Fat Emuls... 1,992 ml @ 83 mls/hr TPN CONT IV 12/31/18 22:00 01/01/19 21:59 12/31/18 21:08 Warfarin Sodium (Coumadin) 7.5 mg 1X WARF ONCE PO 12/31/18 16:00 12/31/18 16:01 DC 12/31/18 16:03 PAT SANABRIA III DO Jan 01, 2019 12:29
--- NOTE | 2019-01-01 12:41 | PDOC ---
Objective: Objective: No GI concerns per nurse - not eating much because he doesn't like the food. DC to [facility] today. Vital Signs: Vital Signs Date Time Temp Pulse Resp B/P (MAP) Pulse Ox O2 Delivery O2 Flow Rate FiO2 01/01/19 11:28 99 Room Air 01/01/19 11:00 98.1 92 20 127/76 (93) 98.1 12/31/18 07:40 2.0 Labs: Laboratory Tests Test 01/01/19 06:55 Prothrombin Time 12.4 SEC Prothromb Time International Ratio 1.0 Sodium Level 136 mmol/L Potassium Level 4.1 mmol/L Chloride Level 103 mmol/L Carbon Dioxide Level 24 mmol/L Anion Gap 9 Blood Urea Nitrogen 16 mg/dL Creatinine 0.8 mg/dL Estimated GFR (Cockcroft-Gault) 99.6 Glucose Level 118 mg/dL Calcium Level 8.7 mg/dL Phosphorus Level 4.4 mg/dL Magnesium Level 1.8 mg/dL PE: GEN: NAD - resting in chair NEURO/PSYCH: resting in chair, did not disturb A/P: Distal esophageal bleeding s/p clips Anemia, coagulopathy - improved Dysphagia - resolved -- DC per primary. GABRIEL BRIDGES Jan 01, 2019 12:41
--- NOTE | 2019-01-01 13:33 | PDOC ---
PROGRESS NOTES Assessment Problems Medical Problems: (1) Alcohol abuse Status: Acute (2) Closed head injury Status: Acute Toxic/ anoxic/metabolic encephalopathy MRI shows persistent prominent areas in posterior distribution, but in frontal lobes greater on the right, with petechial hemorrhages occipital temporal lobes and parasagittal parietal lobes. The lack of improvement implies that this is not posterior reversible encephalopathy syndrome, I suspect he has had multiple infarcts due to low perfusion state. Given the marked clinical improvement, I doubt that he has any type of infection or encephalitis . 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 Shock and hypotensive events. Acute respiratory failure. Pleural effusion. History of seizure? AFib and valvular heart disease, Coumadin on hold. HTN. HLD. COPD. Peripheral neuropathy. Still NPO Visual inattention Plan LTAC Head CT next week, just to exclude gross hemorrhaging I believe that the benefits outweigh the risks of continued anticoagulation. Fully discussed with patient's son. Subjective no complaints Objective Vital Signs Date Time Temp Pulse Resp B/P (MAP) Pulse Ox O2 Delivery O2 Flow Rate FiO2 01/01/19 11:28 99 Room Air 01/01/19 11:00 98.1 92 20 127/76 (93) 98.1 12/31/18 07:40 2.0 Intake and Output 01/01/19 07:00 Intake Total 60 ml Output Total 2050 ml Balance -1990 ml Intake Oral 60 ml Output Urine Total 2050 ml PHYSICAL EXAM Bright and alert, knows he's in hospital Pupils: Both reactive, right a little bit larger than left EOMI. CN: Can count fingers, visual inattention Muscle tone: normal. Muscle strength: Moves all extremities DTR: 1+ Plantar reflex: Flexor Gait: not examined in bed. Sensory exam: not cooperative Cerebellar: not cooperative Review of Relevant I have reviewed the following items robert (where applicable) has been applied. Labs Laboratory Tests Test 12/30/18 18:02 12/31/18 06:05 01/01/19 06:55 Sodium Level 137 mmol/L (136-145) 133 mmol/L (136-145) 136 mmol/L (136-145) Potassium Level 4.0 mmol/L (3.5-5.1) 5.2 mmol/L (3.5-5.1) 4.1 mmol/L (3.5-5.1) Chloride Level 103 mmol/L (98-107) 101 mmol/L (98-107) 103 mmol/L (98-107) Carbon Dioxide Level 25 mmol/L (21-32) 25 mmol/L (21-32) 24 mmol/L (21-32) Anion Gap 9 (6-14) 7 (6-14) 9 (6-14) Blood Urea Nitrogen 15 mg/dL (8-26) 15 mg/dL (8-26) 16 mg/dL (8-26) Creatinine 0.8 mg/dL (0.7-1.3) 0.8 mg/dL (0.7-1.3) 0.8 mg/dL (0.7-1.3) Estimated GFR (Cockcroft-Gault) 99.6 99.6 99.6 Glucose Level 149 mg/dL (70-99) 121 mg/dL (70-99) 118 mg/dL (70-99) Calcium Level 8.6 mg/dL (8.5-10.1) 8.6 mg/dL (8.5-10.1) 8.7 mg/dL (8.5-10.1) Phosphorus Level 3.1 mg/dL (2.6-4.7) 4.4 mg/dL (2.6-4.7) Magnesium Level 1.9 mg/dL (1.8-2.4) 1.8 mg/dL (1.8-2.4) Albumin 2.8 g/dL (3.4-5.0) Prothrombin Time 12.4 SEC (11.7-14.0) 12.4 SEC (11.7-14.0) Prothromb Time International Ratio 1.0 (0.8-1.1) 1.0 (0.8-1.1) Laboratory Tests Test 01/01/19 06:55 Prothrombin Time 12.4 SEC (11.7-14.0) Prothromb Time International Ratio 1.0 (0.8-1.1) Sodium Level 136 mmol/L (136-145) Potassium Level 4.1 mmol/L (3.5-5.1) Chloride Level 103 mmol/L (98-107) Carbon Dioxide Level 24 mmol/L (21-32) Anion Gap 9 (6-14) Blood Urea Nitrogen 16 mg/dL (8-26) Creatinine 0.8 mg/dL (0.7-1.3) Estimated GFR (Cockcroft-Gault) 99.6 Glucose Level 118 mg/dL (70-99) Calcium Level 8.7 mg/dL (8.5-10.1) Phosphorus Level 4.4 mg/dL (2.6-4.7) Magnesium Level 1.8 mg/dL (1.8-2.4) Microbiology 12/24/18 Blood Culture - Final, Complete NO GROWTH AFTER 5 DAYS 12/20/18 Urine Culture - Final, Complete 12/20/18 Urine Culture Result 1 (AMARA) - Final, Complete Medications Current Medications Fentanyl Citrate (Fentanyl 2ml Vial) 50 mcg 1X ONCE IV Last administered on 12/10/18at 20:03; Start 12/10/18 at 19:15; Stop 12/10/18 at 19:16; Status DC Iohexol (Omnipaque 300 Mg/ml) 75 ml 1X ONCE IV Last administered on 12/10/18at 19:43; Start 12/10/18 at 19:15; Stop 12/10/18 at 19:16; Status DC Sodium Chloride 1,000 ml @ 1,000 mls/hr 1X ONCE IV Last administered on 12/10/18at 19:45; Start 12/10/18 at 19:45; Stop 12/10/18 at 20:44; Status DC Morphine Sulfate (Morphine Sulfate) 2 mg PRN Q2HR PRN IV PAIN Last administered on 12/11/18at 12:03; Start 12/10/18 at 20:15; Stop 12/11/18 at 20:14; Status DC Sodium Chloride 1,000 ml @ 100 mls/hr Q10H IV Last administered on 12/11/18at 08:10; Start 12/10/18 at 20:07; Stop 12/11/18 at 12:21; Status DC Diphtheria/ Tetanus/Acell Pertussis (Boostrix) 0.5 ml ONCE ONCE VAX IM Last administered on 12/10/18at 21:07; Start 12/10/18 at 20:15; Stop 12/10/18 at 20:16; Status DC Ondansetron HCl (Zofran) 4 mg PRN Q6HRS PRN IV NAUSEA/VOMITING 1ST CHOICE Last administered on 12/21/18 03:27; Start 12/11/18 at 05:30 Multivitamins (Thera M Plus) 1 tab DAILY PO Last administered on 12/12/18 08:14; Start 12/11/18 at 09:00; Stop 12/13/18 at 11:25; Status DC Folic Acid (Folic Acid) 1 mg DAILY PO Last administered on 12/12/18 08:14; Start 12/11/18 at 09:00; Stop 12/13/18 at 11:25; Status DC Chlordiazepoxide (Librium) 50 mg PRN Q1HR PRN PO For CIWA 8-14 2ND CHOICE Last administered on 12/18/18 18:03; Start 12/11/18 at 05:30 Chlordiazepoxide (Librium) 100 mg PRN Q1HR PRN PO For CIWA 15+ 2ND CHOICE Last administered on 12/13/18 01:11; Start 12/11/18 at 05:30 Lorazepam (Ativan) 4 mg PRN Q1HR PRN PO For CIWA 8-14 Last administered on 12/13/18 02:48; Start 12/11/18 at 05:30 Lorazepam (Ativan) 8 mg PRN Q1HR PRN PO For CIWA 15 or greater; Start 12/11/18 at 05:30 Lorazepam (Ativan Inj) 2 mg PRN Q1HR PRN IV For CIWA 8-14 Last administered on 12/30/18 05:44; Start 12/11/18 at 05:30 Lorazepam (Ativan Inj) 4 mg PRN Q1HR PRN IV For CIWA 15 or greater Last administered on 12/26/18 22:11; Start 12/11/18 at 05:30 Haloperidol Lactate (Haldol Inj) 5 mg PRN Q4HRS PRN IVP Hallucinatns,Confusn,Delirium Last administered on 12/27/18 19:18; Start 12/11/18 at 05:30 Diphenhydramine HCl (Benadryl) 25 mg PRN Q15MIN PRN IVP EPS symptoms 2'Haldol admin Last administered on 12/27/18 16:58; Start 12/11/18 at 05:30 Clonidine HCl (Catapres) 0.1 mg PRN Q1HR PRN PO SBP > 180 or DBP > 100, MRX3; Start 12/11/18 at 05:30 Sodium Chloride 1,000 ml @ 60 mls/hr [id number] IV Last administered on 12/21/18at 07:26; Start 12/11/18 at 13:00; Stop 12/22/18 at 14:53; Status DC Sodium Chloride 150 ml @ 50 mls/hr 1X ONCE IV Last administered on 12/11/18at 13:48; Start 12/11/18 at 13:00; Stop 12/11/18 at 15:59; Status DC Lisinopril (Prinivil) 20 mg DAILY PO Last administered on 12/19/18at 08:00; Start 12/11/18 at 14:00; Stop 12/21/18 at 15:19; Status DC Oxycodone/ Acetaminophen (Percocet 7.5/ 325) 1 tab PRN Q6HRS PRN PO MODERATE TO SEVERE PAIN Last administered on 12/19/18at 06:19; Start 12/11/18 at 13:30 Calcium Carbonate/ Glycine (Oscal) 500 mg TIDAFTMEAL PO Last administered on 01/01/19at 08:16; Start 12/12/18 at 13:00 Ziprasidone (Geodon Im) 20 mg 1X ONCE IM ; Start 12/13/18 at 05:00; Stop 12/13/18 at 18:51; Status DC Lorazepam 100 mg/ Sodium Chloride 100 ml @ 2 mls/hr CONT PRN IV SEDATION Last administered on 12/13/18at 19:56; Start 12/13/18 at 07:00; Stop 12/18/18 at 16:33; Status DC Olanzapine (ZyPREXA IM) 10 mg PRN Q8HRS PRN IM AGITATION Last administered on 12/19/18at 00:05; Start 12/13/18 at 08:30 Olanzapine (ZyPREXA IM) 10 mg STK-MED ONCE IM ; Start 12/13/18 at 08:37; Stop 12/13/18 at 08:38; Status DC Fentanyl Citrate (Fentanyl 2ml Vial) 75 mcg 1X ONCE IV ; Start 12/13/18 at 09:45; Stop 12/13/18 at 19:20; Status DC Fentanyl Citrate (Fentanyl 2ml Vial) 100 mcg STK-MED ONCE .ROUTE ; Start 12/13/18 at 09:47; Stop 12/13/18 at 09:48; Status DC Fentanyl Citrate (Fentanyl 2ml Vial) 75 mcg PRN Q30MIN PRN IV PAIN Last administered on 12/27/18at 23:30; Start 12/13/18 at 10:00 Multivitamins 10 ml/Thiamine HCl 100 mg/Folic Acid 1 mg/Sodium Chloride 1,011.2 ml @ 100 mls/ hr DAILY IV Last administered on 12/18/18at 08:55; Start 12/14/18 at 12:00; Stop 12/18/18 at 19:07; Status DC Enoxaparin Sodium (Lovenox 80mg Syringe) 80 mg Q12HR SQ Last administered on 12/21/18at 07:50; Start 12/13/18 at 14:30; Stop 12/21/18 at 12:56; Status DC Warfarin Sodium (Coumadin Per Pharmacy) 1 each PRN DAILY PRN MC SEE COMMENTS Last administered on 12/24/18at 11:27; Start 12/13/18 at 14:15; Stop 12/24/18 at 16:10; Status DC Warfarin Sodium (Coumadin) 7.5 mg 1X WARF ONCE PO ; Start 12/13/18 at 16:00; Stop 12/13/18 at 16:01; Status DC Nicotine (Nicoderm Cq 21mg) 1 patch DAILY TD Last administered on 01/01/19at 08:18; Start 12/14/18 at 09:00 Dexmedetomidine HCl 400 mcg/ Sodium Chloride 100 ml @ 0 mls/hr CONT PRN IV PER PROTOCOL Last administered on 12/18/18at 00:12; Start 12/14/18 at 01:45; Stop 12/18/18 at 16:33; Status DC Sodium Chloride 500 ml @ 500 mls/hr 1X PRN PRN IV SEE COMMENTS; Start 12/14/18 at 01:45; Stop 12/20/18 at 11:56; Status DC Atropine Sulfate (ATROPINE 0.5mg SYRINGE) 0.5 mg PRN Q5MIN PRN IV SEE COMMENTS; Start 12/14/18 at 01:45; Stop 12/20/18 at 11:55; Status DC Nicotine (Nicoderm Cq 21mg) 1 patch STK-MED ONCE TD ; Start 12/14/18 at 01:57; Stop 12/14/18 at 01:57; Status DC Lorazepam (Ativan) 1 mg BID PO Last administered on 01/01/19at 08:17; Start 12/14/18 at 09:00 Warfarin Sodium (Coumadin) 5 mg DAILY16 PO ; Start 12/14/18 at 16:00; Stop 12/14/18 at 09:21; Status DC Warfarin Sodium (Coumadin) 7.5 mg 1X WARF ONCE PO ; Start 12/14/18 at 16:00; Stop 12/14/18 at 16:01; Status DC Enalaprilat (Vasotec Inj) 1.25 mg Q8HRS IVP Last administered on 12/30/18at 16:06; Start 12/14/18 at 15:00; Stop 12/30/18 at 16:47; Status DC Nicardipine HCl 50 mg/Sodium Chloride 250 ml @ 25 mls/hr CONT PRN IV SEE I/O RECORD Last administered on 12/16/18at 09:58; Start 12/14/18 at 17:45; Stop 12/18/18 at 16:33; Status DC Nicardipine HCl 50 mg/Sodium Chloride 250 ml @ 25 mls/hr CONT PRN IV SEE I/O RECORD; Start 12/14/18 at 18:00; Status UNV Warfarin Sodium (Coumadin) 7.5 mg 1X WARF ONCE PO ; Start 12/15/18 at 16:00; Stop 12/15/18 at 16:01; Status DC Warfarin Sodium (Coumadin - No Dose Today) 1 each 1X WARF ONCE MC ; Start 12/16/18 at 16:00; Stop 12/16/18 at 16:01; Status DC Warfarin Sodium (Coumadin) 7.5 mg 1X WARF ONCE PO Last administered on 12/18/18at 08:54; Start 12/17/18 at 16:00; Stop 12/17/18 at 16:01; Status DC Ceftriaxone Sodium (Rocephin) 1 gm Q24H IVP Last administered on 12/20/18at 12:08; Start 12/18/18 at 12:30; Stop 12/20/18 at 15:14; Status DC Metoprolol Tartrate (Lopressor) 25 mg BID PO Last administered on 01/01/19at 08:17; Start 12/18/18 at 12:30 Acetaminophen/ Codeine Phosphate (Tylenol #3) 1 tab PRN Q6HRS PRN PO PAIN MILD TO MOD; Start 12/18/18 at 12:00; Stop 12/18/18 at 12:55; Status DC Lactobacillus Rhamnosus (Culturelle) 1 cap BID PO Last administered on 12/19/18at 08:00; Start 12/18/18 at 21:00; Stop 12/24/18 at 11:17; Status DC Acetaminophen (Tylenol) 650 mg PRN Q6HRS PRN PO FEVER Last administered on 12/19/18at 17:23; Start 12/18/18 at 13:00 Warfarin Sodium (Coumadin) 7.5 mg 1X WARF ONCE PO Last administered on 12/18/18at 18:03; Start 12/18/18 at 16:00; Stop 12/18/18 at 16:11; Status DC Albuterol/ Ipratropium (Duoneb) 3 ml 1X ONCE NEB Last administered on 12/19/18at 07:15; Start 12/19/18 at 07:15; Stop 12/19/18 at 07:16; Status DC Ziprasidone (Geodon Im) 10 mg 1X ONCE IM Last administered on 12/19/18at 07:42; Start 12/19/18 at 07:15; Stop 12/19/18 at 07:16; Status DC Warfarin Sodium (Coumadin) 7.5 mg 1X WARF ONCE PO Last administered on 12/19/18at 17:23; Start 12/19/18 at 16:00; Stop 12/19/18 at 16:01; Status DC Potassium Chloride (Klor-Con) 40 meq 1X ONCE PO Last administered on 12/19/18at 16:12; Start 12/19/18 at 14:00; Stop 12/19/18 at 14:01; Status DC Potassium Chloride (Klor-Con) 20 meq DAILYWBKFT PO ; Start 12/20/18 at 08:00; Stop 12/28/18 at 08:35; Status DC Doxycycline Hyclate (Vibra-Tab) 100 mg BID PO Last administered on 12/19/18at 17:22; Start 12/19/18 at 17:30; Stop 12/19/18 at 17:57; Status DC Doxycycline Hyclate 100 mg/ Dextrose 100 ml @ 50 mls/hr Q12HR IV Last administered on 12/23/18at 22:17; Start 12/19/18 at 21:00; Stop 12/24/18 at 10:15; Status DC Metoprolol Tartrate (Lopressor Vial) 5 mg PRN Q6HRS PRN IVP HYPERTENSION, 2ND CHOICE Last administered on 12/24/18at 07:22; Start 12/19/18 at 18:00 Scopolamine (Transderm-Scop) 1 patch Q3DAYS TD Last administered on 01/01/19at 08:17; Start 12/20/18 at 09:00 Potassium Chloride/Water 100 ml @ 100 mls/hr Q1H IV Last administered on 12/20/18at 10:36; Start 12/20/18 at 06:00; Stop 12/20/18 at 09:59; Status DC Potassium Chloride (Klor-Con) 40 meq 1X ONCE PO ; Start 12/20/18 at 08:00; Stop 12/20/18 at 08:01; Status DC Acetaminophen (Tylenol Supp) 650 mg PRN Q6HRS PRN MA MILD PAIN / TEMP Last administered on 12/28/18at 21:28; Start 12/20/18 at 07:15 Warfarin Sodium (Coumadin) 7.5 mg 1X WARF ONCE PO ; Start 12/20/18 at 16:00; Stop 12/20/18 at 16:01; Status DC Hydralazine HCl (Apresoline Inj) 10 mg PRN Q4HRS PRN IVP ELEVATED BP, 1ST CHOICE Last administered on 12/22/18at 11:07; Start 12/20/18 at 14:30 Potassium Chloride (Klor-Con) 40 meq 1X ONCE PO ; Start 12/20/18 at 14:30; Stop 12/20/18 at 14:41; Status DC Potassium Chloride (Klor-Con) 20 meq DAILYWBKFT PO ; Start 12/21/18 at 08:00; Stop 12/25/18 at 11:25; Status DC Albuterol/ Ipratropium (Duoneb) 3 ml RTQID NEB Last administered on 01/01/19at 11:28; Start 12/20/18 at 16:00 Piperacillin Sod/ Tazobactam Sod 3.375 gm/Sodium Chloride 50 ml @ 100 mls/hr Q6HRS IV Last administered on 12/24/18at 05:09; Start 12/20/18 at 16:00; Stop 12/24/18 at 10:15; Status DC Amino Acids/ Glycerin/ Electrolytes 1,000 ml @ 75 mls/hr [id number] IV Last administered on 12/25/18at 09:05; Start 12/21/18 at 13:00; Stop 12/25/18 at 21:59; Status DC Warfarin Sodium (Coumadin) 1 mg 1X WARF ONCE PO ; Start 12/21/18 at 16:00; Stop 12/21/18 at 16:01; Status DC Sodium Chloride 1,000 ml @ 75 mls/hr 1X ONCE IV Last administered on 12/21/18at 13:49; Start 12/21/18 at 13:15; Stop 12/22/18 at 02:34; Status DC Potassium Chloride/Water 100 ml @ 100 mls/hr Q1H IV Last administered on 12/22/18at 11:03; Start 12/22/18 at 06:00; Stop 12/22/18 at 09:59; Status DC Sodium Chloride 1,000 ml @ 75 mls/hr 1X ONCE IV Last administered on 12/22/18at 14:49; Start 12/22/18 at 14:30; Stop 12/23/18 at 03:49; Status DC Potassium Chloride 20 meq/ Sodium Chloride 1,010 ml @ 75 mls/hr 1X ONCE IV Last administered on 12/22/18at 17:51; Start 12/22/18 at 16:00; Stop 12/23/18 at 05:27; Status DC Hydralazine HCl (Apresoline Inj) 10 mg Q6HRS IVP Last administered on 01/01/19at 06:38; Start 12/22/18 at 18:00 Potassium Chloride/Water 100 ml @ 100 mls/hr Q1H IV Last administered on at 14:01; Start 12/23/18 at 06:00; Stop 12/23/18 at 09:59; Status DC Potassium Chloride/Water 50 ml @ 50 mls/hr Q1H IV ; Start 12/23/18 at 11:15; Stop 12/23/18 at 13:14; Status UNV Potassium Chloride/Water 100 ml @ 100 mls/hr Q1H IV ; Start 12/23/18 at 11:30; Stop 12/23/18 at 13:04; Status DC Warfarin Sodium (Coumadin - No Dose Today) 1 each 1X WARF ONCE MC Last administered on 12/23/18at 16:00; Start 12/23/18 at 16:00; Stop 12/23/18 at 16:01; Status DC Pantoprazole Sodium (PROTONIX VIAL for IV PUSH) 40 mg DAILYAC IVP Last administered on 12/23/18at 15:21; Start 12/23/18 at 15:00; Stop 12/24/18 at 10:43; Status DC Cefepime HCl (Maxipime) 2 gm Q8HRS IVP Last administered on 12/29/18at 05:51; Start 12/24/18 at 10:00; Stop 12/29/18 at 07:57; Status DC Metronidazole 100 ml @ 100 mls/hr Q8HRS IV Last administered on 12/29/18at 05:51; Start 12/24/18 at 10:00; Stop 12/29/18 at 07:57; Status DC Daptomycin 460 mg/ Sodium Chloride 50 ml @ 100 mls/hr Q24H IV Last administered on 12/27/18at 10:58; Start 12/24/18 at 11:00; Stop 12/28/18 at 11:10; Status DC Micafungin Sodium 100 mg/Dextrose 100 ml @ 100 mls/hr Q24H IV Last administered on 12/28/18at 08:58; Start 12/24/18 at 12:00; Stop 12/28/18 at 11:10; Status DC Pantoprazole Sodium 80 mg/ Sodium Chloride 100 ml @ 10 mls/hr Q10H IV Last administered on 12/26/18at 13:23; Start 12/24/18 at 11:00; Stop 12/26/18 at 15:12; Status DC Lorazepam (Ativan) 1 mg PRN Q6HRS PRN PO ANXIETY / AGITATION 1ST CHOICE; Start 12/24/18 at 10:45 Ondansetron HCl (Zofran) 4 mg PRN Q6HRS PRN IV NAUSEA/VOMITING; Start 12/24/18 at 10:45; Stop 12/24/18 at 10:52; Status DC Info (Icu Electrolyte Protocol) 1 ea DAILY MC Last administered on 12/25/18at 08:50; Start 12/25/18 at 09:00; Stop 12/28/18 at 17:05; Status DC Sodium Chloride (Normal Saline Flush) 3 ml QSHIFT PRN IV AFTER MEDS AND BLOOD DRAWS; Start 12/24/18 at 10:45 Sodium Chloride 1,000 ml @ 2,130 mls/hr Q29M IV Last administered on 12/24/18at 12:13; Start 12/24/18 at 10:50; Stop 12/24/18 at 11:50; Status DC Sodium Chloride 500 ml @ 1,000 mls/hr PRN Q30MIN PRN IV SEE COMMENTS; Start 12/24/18 at 11:00 Norepinephrine Bitartrate 250 ml @ 0 mls/hr CONT PRN IV SEE COMMENTS Last administered on 12/24/18at 20:22; Start 12/24/18 at 11:00; Stop 12/27/18 at 09:21; Status DC Dobutamine HCl/ Dextrose 250 ml @ 0 mls/hr CONT PRN IV SEE COMMENTS; Start 12/24/18 at 11:00; Stop 12/28/18 at 17:04; Status DC Sodium Bicarbonate (Sodium Bicarb Adult 8.4% Syr) 100 meq 1X ONCE IV Last administered on 12/24/18at 11:16; Start 12/24/18 at 11:15; Stop 12/24/18 at 11:16; Status DC Phytonadione (Vitamin K Ampule) 5 mg 1X ONCE SQ Last administered on 12/24/18at 12:24; Start 12/24/18 at 11:15; Stop 12/24/18 at 11:22; Status DC Succinylcholine Chloride (Anectine) 200 mg STK-MED ONCE .ROUTE ; Start 12/24/18 at 11:20; Stop 12/24/18 at 11:21; Status DC Midazolam HCl (Versed) 5 mg STK-MED ONCE .ROUTE ; Start 12/24/18 at 11:21; Stop 12/24/18 at 11:21; Status DC Warfarin Sodium (Coumadin - No Dose Today) 1 each 1X WARF ONCE MC ; Start 12/24/18 at 16:00; Stop 12/24/18 at 22:25; Status DC Atropine Sulfate (ATROPINE 1mg SYRINGE) 1 mg STK-MED ONCE .ROUTE ; Start 1 at 11:30; Stop 12/24/18 at 11:30; Status DC Epinephrine HCl (Adrenalin) 1 mg STK-MED ONCE .ROUTE ; Start 12/24/18 at 11:30; Stop 12/24/18 at 11:30; Status DC Succinylcholine Chloride (Anectine) 60 mg 1X ONCE IV Last administered on 12/24/18at 12:04; Start 12/24/18 at 11:45; Stop 12/24/18 at 11:46; Status DC Midazolam HCl (Versed) 2 mg 1X ONCE IV Last administered on 12/24/18at 11:30; Start 12/24/18 at 11:45; Stop 12/24/18 at 11:46; Status DC Epinephrine HCl (EPINEPHrine SYRINGE) 1 mg 1X ONCE IV ; Start 12/24/18 at 11:45; Stop 12/24/18 at 11:46; Status DC Sodium Chloride 1,000 ml @ 1,000 mls/hr 1X ONCE IV ; Start 12/24/18 at 11:45; Stop 12/24/18 at 12:44; Status DC Midazolam HCl 100 ml @ 5 mls/hr CONT PRN IV SEE I/O RECORD Last administered on 12/25/18at 23:40; Start 12/24/18 at 12:00; Stop 12/27/18 at 09:21; Status DC Fentanyl Citrate 30 ml @ 0 mls/hr CONT PRN IV SEE PROTOCOL Last administered on 12/26/18at 05:26; Start 12/24/18 at 12:00; Stop 12/28/18 at 17:06; Status DC Midazolam HCl (Versed) 2 mg 1X ONCE IV ; Start 12/24/18 at 12:15; Stop 12/24/18 at 12:16; Status DC Metoclopramide HCl (Reglan Vial) 10 mg 1X ONCE IVP Last administered on 12/24/18at 15:00; Start 12/24/18 at 12:45; Stop 12/24/18 at 12:46; Status DC Vasopressin 40 unit/Dextrose 102 ml @ 6 mls/hr CONT PRN IV SEE I/O RECORD Last administered on 12/26/18at 12:38; Start 12/24/18 at 13:00; Stop 12/27/18 at 09:21; Status DC Albumin Human 500 ml @ As Directed STK-MED ONCE IV ; Start 12/24/18 at 14:37; Stop 12/24/18 at 14:37; Status DC Albumin Human 500 ml @ 125 mls/hr 1X ONCE IV Last administered on 12/24/18at 14:39; Start 12/24/18 at 14:45; Stop 12/24/18 at 18:44; Status DC Digoxin (Lanoxin) 500 mcg 1X ONCE IV Last administered on 12/24/18at 15:30; Start 12/24/18 at 15:30; Stop 12/24/18 at 15:31; Status DC Digoxin (Lanoxin) 500 mcg STK-MED ONCE .ROUTE ; Start 12/24/18 at 15:07; Stop 12/24/18 at 15:08; Status DC Phytonadione (Vitamin K Ampule) 10 mg 1X ONCE SQ Last administered on 12/24/18at 17:36; Start 12/24/18 at 15:45; Stop 12/24/18 at 15:49; Status DC Amiodarone HCl 150 mg/Dextrose 103 ml @ 618 mls/hr 1X ONCE IV Last administered on 12/24/18at 17:09; Start 12/24/18 at 16:00; Stop 12/24/18 at 16:09; Status DC Amiodarone HCl 900 mg/Dextrose 518 ml @ 0 mls/hr CONT PRN IV SEE I/O RECORD Last administered on 12/24/18at 17:55; Start 12/24/18 at 16:00; Stop 12/24/18 at 17:55; Status DC Phytonadione (Vitamin K Ampule) 10 mg 1X ONCE SQ ; Start 12/24/18 at 17:00; Stop 12/24/18 at 17:01; Status DC Potassium Chloride/Water 50 ml @ 50 mls/hr Q1H IV Last administered on 12/25/18at 12:37; Start 12/25/18 at 09:00; Stop 12/25/18 at 12:59; Status DC Potassium Chloride/Water 50 ml @ 0 mls/hr Q1H IV ; Start 12/25/18 at 08:30; Stop 12/25/18 at 11:31; Status UNV Info (Tpn Per Pharmacy) 1 each PRN DAILY PRN MC SEE COMMENTS Last administered on 12/31/18at 10:33; Start 12/25/18 at 09:45 Sodium Chloride 50 meq/Potassium Acetate 70 meq/ Potassium Phosphate 13.6 mmol/Magnesium Sulfate 10 meq/ Calcium Gluconate 10 meq/ Multivitamins 10 ml/Chromium/ Copper/Manganese/ Seleni/Zn 1 ml/ Total Parenteral Nutrition/Amino Acids/Dextrose/ Fat Emulsion Intravenous 1,512 ml @ 63 mls/hr TPN CONT IV Last administered on 12/25/18at 21:37; Start 12/25/18 at 22:00; Stop 12/26/18 at 21:59; Status DC Amiodarone HCl 900 mg/Dextrose 518 ml @ 17 mls/hr CONT PRN IV .; Start 12/25/18 at 20:00; Status Cancel Amiodarone HCl 900 mg/Dextrose 518 ml @ 0 mls/hr CONT PRN IV SEE I/O RECORD Last administered on 12/25/18at 20:15; Start 12/25/18 at 20:15; Stop 12/25/18 at 20:15; Status DC Aspirin (Aspirin Rectal Supp) 300 mg DAILY MA Last administered on 12/28/18at 09:20; Start 12/26/18 at 11:00; Stop 01/01/19 at 11:00; Status DC Amiodarone HCl 900 mg/Dextrose 518 ml @ 33 mls/hr CONT PRN IV SEE I/O RECORD; Start 12/26/18 at 12:45; Stop 12/27/18 at 01:06; Status DC Potassium Acetate 70 meq/Potassium Phosphate 17 mmol/ Magnesium Sulfate 10 meq/Calcium Gluconate 10 meq/ Multivitamins 10 ml/Chromium/ Copper/Manganese/ Seleni/Zn 1 ml/ Thiamine HCl 100 mg/Folic Acid 1 mg/Total Parenteral Nutrition/Amino Acids/Dextrose/ Fat Emulsion Intravenous 1,992 ml @ 83 mls/hr TPN CONT IV Last administered on 12/26/18at 21:53; Start 12/26/18 at 22:00; Stop 12/27/18 at 21:59; Status DC Heparin Sodium/ Dextrose 500 ml @ 18.72 mls/ hr CONT PRN IV PER PROTOCOL Last administered on 12/29/18at 13:10; Start 12/26/18 at 14:45; Stop 12/30/18 at 09:22; Status DC Heparin Sodium (Porcine) (Heparin Sodium) 1,950 unit PRN Q6HRS PRN IV FOR UFH LEVEL LESS THAN 0.2 Last administered on 12/30/18at 01:44; Start 12/26/18 at 14:45; Stop 12/30/18 at 09:22; Status DC Pantoprazole Sodium (PROTONIX VIAL for IV PUSH) 40 mg BID IVP Last administered on 12/31/18at 08:30; Start 12/26/18 at 21:00; Stop 12/31/18 at 11:25; Status DC Amiodarone HCl 450 mg/Dextrose 259 ml @ 17 mls/hr CONT PRN IV SEE I/O RECORD Last administered on 12/27/18at 19:19; Start 12/27/18 at 02:00 Potassium Acetate 85 meq/Potassium Phosphate 17 mmol/ Magnesium Sulfate 10 meq/Calcium Gluconate 10 meq/ Multivitamins 10 ml/Chromium/ Copper/Manganese/ Seleni/Zn 1 ml/ Thiamine HCl 100 mg/Folic Acid 1 mg/Total Parenteral Nutrition/ Amino Acids/Dextrose/ Fat Emulsion Intravenous 1,992 ml @ 83 mls/hr TPN CONT IV Last administered on 12/27/18at 21:33; Start 12/27/18 at 22:00; Stop 12/28/18 at 21:59; Status DC Potassium Chloride/Water 100 ml @ 100 mls/hr Q1H IV Last administered on 12/28/18at 10:21; Start 12/28/18 at 09:00; Stop 12/28/18 at 10:59; Status DC Potassium Chloride/Water 50 ml @ 50 mls/hr DAILY IV ; Start 12/28/18 at 09:00; Status UNV Potassium Acetate 100 meq/Potassium Phosphate 20 mmol/ Magnesium Sulfate 13 meq/Calcium Gluconate 10 meq/ Multivitamins 10 ml/Chromium/ Copper/Manganese/ Seleni/Zn 1 ml/ Thiamine HCl 100 mg/Folic Acid 1 mg/Total Parenteral Nutrition/Amino Acids/Dextrose/ Fat Emulsion Intravenous 1,992 ml @ 83 mls/hr TPN CONT IV Last administered on 12/28/18at 21:31; Start 12/28/18 at 22:00; Stop 12/29/18 at 21:59; Status DC Ceftriaxone Sodium (Rocephin) 1 gm Q24H IVP Last administered on 01/01/19at 08:17; Start 12/29/18 at 08:00 Loperamide HCl (Immodium Oral Susp) 2 mg PRN Q30MIN PRN PEG DIARRHEA; Start 12/29/18 at 08:00 Potassium Acetate 120 meq/Potassium Phosphate 16 mmol/ Magnesium Sulfate 13 meq/Calcium Gluconate 10 meq/ Multivitamins 10 ml/Chromium/ Copper/Manganese/ Seleni/Zn 1 ml/ Thiamine HCl 100 mg/Folic Acid 1 mg/Sodium Chloride 20 meq/ Total Parenteral Nutrition/Amino Acids/Dextrose/ Fat Emulsion Intravenous 1,992 ml @ 83 mls/hr TPN CONT IV Last administered on 12/29/18at 22:17; Start 12/29/18 at 22:00; Stop 12/30/18 at 21:59; Status DC Enoxaparin Sodium (Lovenox 80mg Syringe) 80 mg Q12HR SQ Last administered on 12/31/18at 21:06; Start 12/30/18 at 12:00; Stop 01/01/19 at 11:00; Status DC Warfarin Sodium (Coumadin Per Pharmacy) 1 each PRN DAILY PRN MC SEE COMMENTS Last administered on 01/01/19at 10:43; Start 12/30/18 at 09:30 Potassium Acetate 120 meq/Potassium Phosphate 16 mmol/ Magnesium Sulfate 13 meq/Calcium Gluconate 10 meq/ Multivitamins 10 ml/Chromium/ Copper/Manganese/ Seleni/Zn 1 ml/ Thiamine HCl 100 mg/Folic Acid 1 mg/Sodium Chloride 20 meq/ Total Parenteral Nutrition/Amino Acids/Dextrose/ Fat Emulsion Intravenous 1,992 ml @ 83 mls/hr TPN CONT IV Last administered on 12/30/18at 21:38; Start 12/30/18 at 22:00; Stop 12/31/18 at 21:59; Status DC Warfarin Sodium (Coumadin) 7.5 mg 1X WARF ONCE PO ; Start 12/30/18 at 16:00; Stop 12/30/18 at 16:01; Status DC Enalaprilat (Vasotec Inj) 1.25 mg Q8HRS IVP Last administered on 12/31/18at 13:43; Start 12/30/18 at 22:00 Sodium Chloride 70 meq/Potassium Acetate 60 meq/ Potassium Phosphate 16 mmol/ Magnesium Sulfate 13 meq/Calcium Gluconate 10 meq/ Multivitamins 10 ml/Chromium/ Copper/Manganese/ Seleni/Zn 1 ml/ Thiamine HCl 100 mg/Folic Acid 1 mg/Total Parenteral Nutrition/Amino Acids/Dextrose/ Fat Emuls... 1,992 ml @ 83 mls/hr TPN CONT IV Last administered on 12/31/18at 21:08; Start 12/31/18 at 22:00; Stop 01/01/19 at 21:59 Pantoprazole Sodium (Protonix) 40 mg DAILYAC PO Last administered on 01/01/19at 08:16; Start 12/31/18 at 11:30 Warfarin Sodium (Coumadin) 7.5 mg 1X WARF ONCE PO Last administered on 12/31/18at 16:03; Start 12/31/18 at 16:00; Stop 12/31/18 at 16:01; Status DC Warfarin Sodium (Coumadin) 7.5 mg 1X WARF ONCE PO ; Start 01/01/19 at 16:00; Stop 01/01/19 at 16:01 Active Scripts Active Reported Lorazepam 1 Mg Tablet 1 Tab PO BID Percocet 7.5-325 Mg Tablet (Oxycodone/Acetaminophen) 1 Each Tablet 1 Tab PO PRN Q6HRS PRN Coumadin (Warfarin Sodium) 5 Mg Tablet 1 Tab PO DAILY Lisinopril 20 Mg Tablet 1 Tab PO DAILY Vitals/I & O Vital Sign - Last 24 Hours 12/31/18 12/31/18 12/31/18 12/31/18 13:43 14:56 15:35 18:14 Temp 98.5 98.5 Pulse 107 103 103 Resp 16 B/P (MAP) 148/88 150/79 (102) 150/79 Pulse Ox 97 O2 Delivery Nasal Cannula Room Air 12/31/18 12/31/18 12/31/18 12/31/18 18:51 19:22 20:10 21:07 Temp 98.1 98.1 Pulse 108 112 Resp 16 B/P (MAP) 138/70 (92) 140/84 Pulse Ox 97 97 O2 Delivery Nasal Cannula Simple Mask Room Air 12/31/18 12/31/18 01/01/19 01/01/19 22:00 23:00 00:00 03:00 Temp 99.4 99.4 Pulse 112 112 112 103 Resp 20 B/P (MAP) 140/84 140/84 (102) 140/84 145/72 (96) Pulse Ox 95 O2 Delivery Room Air Room Air 01/01/19 01/01/19 01/01/19 01/01/19 06:00 06:38 07:00 08:00 Temp 98.6 98.6 Pulse 101 98 108 Resp 20 B/P (MAP) 168/82 168/82 163/76 (105) Pulse Ox 95 O2 Delivery Room Air Room Air 01/01/19 01/01/19 01/01/19 01/01/19 08:17 08:33 11:00 11:28 Temp 98.1 98.1 Pulse 108 92 Resp 20 B/P (MAP) 163/76 127/76 (93) Pulse Ox 99 96 99 O2 Delivery Room Air Room Air Room Air Intake and Output 12/31/18 12/31/18 01/01/19 15:00 23:00 07:00 Intake Total 0 ml 60 ml Output Total 2050 ml Balance 0 ml -1990 ml Images MRI Brain without contrast History: Cerebral edema Technique: Multiplanar, multisequential noncontrast MR imaging was performed of the brain. Comparison: 12/26/2018 Findings: There are prominent areas of T2 and FLAIR hyperintense signal abnormality with corresponding diffusion signal change of the occipital temporal lobes extending to parasagittal parietal lobes, also separate focus of right frontal lobe and very minimally of the left frontal lobe. On ADC map, there are some areas which are somewhat hypointense most notable of the occipital temporal lobes near the cortical surfaces somewhat greater than previously. There is also some associated variable decreased signal on gradient echo sequence also mostly along the cortical surfaces of the occipital temporal and parasagittal parietal lobes. There is sulcal effacement at sites of signal change. Degree of signal abnormality such as of the right frontal lobe and of the right periatrial white matter with associated mild increased mass effect. There is generalized supratentorial atrophy, ventricular size partially to the sulcal spaces. 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 There is small left sphenoid sinus mucous retention cyst. There are mucous retention cysts of the maxillary sinuses greater on the right as seen previously. There is left greater than right ethmoid air cell mucosal thickening. There is preservation of the major arterial intracranial flow voids at the skull base. There is patchy [id number] fluid and thickening of the mastoid air cells greater on the right as seen previously. Impression: 1. There are persistent prominent areas of signal abnormality greatest of the occipital temporal lobes extending to the parasagittal parietal lobes, also foci of the frontal lobes greater on the right. Signal abnormality has somewhat increased of the right periatrial white matter and right frontal lobe, also increased foci of petechial hemorrhage greatest of the occipital temporal lobes and parasagittal parietal lobes. There is again associated degree of diffusion signal change, some areas more hypointense on the ADC near the cortical surfaces as may be seen with infarction/cytotoxic edema. While findings again could be seen with sequela of posterior reversible encephalopathy syndrome, there has been no significant improvement in the interval. Sequela of cerebral contusions would be in the differential considerations. Sequela of infectious etiology/encephalitis is not excluded by imaging. 2. There are patchy fluid and thickening of the mastoid air cells. 3. 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 There is generalized supratentorial atrophy. DESTINI GEIGER MD Jan 01, 2019 13:32
[2019-01-01 15:00] VITALS: BP 125/81
--- NOTE | 2019-01-01 15:08 | DS ---
DATE OF DISCHARGE: 01/01/2019 ADMISSION DIAGNOSES: Hyponatremia and severe alcohol withdrawal. DISCHARGE DIAGNOSES: Resolving alcohol withdrawal, resolving hyponatremia, resolving respiratory failure, severe metabolic encephalopathy. CONSULTS: Neurology and Pulmonary. HOSPITAL COURSE: The patient is a pleasant 58-year-old male that presented with severe alcohol withdrawal, with severe hyponatremia. We initially thought we would do routine alcohol withdrawal protocol, but by day 4 or 5, he just was not getting better and at that point, I consulted Neurology. Over the next few days, he really decompensated, actually end up on the ventilator for a few days. At one point, we were considering hospice, but surprisingly over the last week, he has perked up. He got off the ventilator, he began talking. This morning, I saw him and examined him. He is up in the chair, doing well, but very debilitated and very weak. We planned to discharge to [facility]. DISPOSITION: LTAC. ACTIVITY: As tolerated. DIET: Low sodium. MEDICATIONS: Please see MRAD. TOTAL TIME: 32 minutes. PAT SANABRIA DO DR: KIARA/juanita JOB#: [id number] / [id number]
[2019-01-01] MEDS ORDERED: WARFARIN 7.5 MG TABLET. PO ONE (16:00)
[2019-01-01 17:34] VITALS: BP 125/81
--- NOTE | 2019-01-01 19:32 | NUR ---
Pt discharge to [facility] via transport with triple lumen picc right upper arm, trevino to DD, and rectal tube intact. Pt a/o to self, 2pa to gurney with left side weakness noted. pmrn
== END 2019-01-01 19:59 | DRG 640 ==
LOC: ER 18:40 → 6 SOUTH 19:45 → 1 WEST ICU 12-13 07:26 → 6 SOUTH 12-18 16:29 → 1 WEST ICU 12-24 10:40 → 2 NORTH 12-28 15:56
PROVIDERS: ADMIT Internal Medicine; ATTEND Internal Medicine
PROC: 0BH17EZ Insertion of Endotracheal Airway into Trachea, Via Natural or Artificial Opening (ICD-10-PCS; 2018-12-24)
PROC: 30233K1 Transfusion of Nonautologous Frozen Plasma into Peripheral Vein, Percutaneous Approach (ICD-10-PCS; 2018-12-24)
PROC: 30233N1 Transfusion of Nonautologous Red Blood Cells into Peripheral Vein, Percutaneous Approach (ICD-10-PCS; 2018-12-24)
PROC: 0W3P8ZZ Control Bleeding in Gastrointestinal Tract, Via Natural or Artificial Opening Endoscopic (ICD-10-PCS; 2018-12-24)
PROC: 02HV33Z Insertion of Infusion Device into Superior Vena Cava, Percutaneous Approach (ICD-10-PCS; 2018-12-24)
PROC: 5A1945Z Respiratory Ventilation, 24-96 Consecutive Hours (ICD-10-PCS; principal; 2018-12-24 15:00)
DX: E87.1 Hypo-osmolality and hyponatremia (principal); J96.01 Acute respiratory failure with hypoxia; G92 Toxic encephalopathy; G93.6 Cerebral edema; K72.00 Acute and subacute hepatic failure without coma; D62 Acute posthemorrhagic anemia; D68.9 Coagulation defect, unspecified; E46 Unspecified protein-calorie malnutrition; F10.239 Alcohol dependence with withdrawal, unspecified; J90 Pleural effusion, not elsewhere classified; J98.11 Atelectasis; K92.2 Gastrointestinal hemorrhage, unspecified; N17.9 Acute kidney failure, unspecified; E87.2 Acidosis; I25.10 Atherosclerotic heart disease of native coronary artery without angina pectoris; Y90.7 Blood alcohol level of 200-239 mg/100 ml; M19.90 Unspecified osteoarthritis, unspecified site; G89.29 Other chronic pain; S01.01XA Laceration without foreign body of scalp, initial encounter; I10 Essential (primary) hypertension; E78.5 Hyperlipidemia, unspecified; G62.9 Polyneuropathy, unspecified; K21.0 Gastro-esophageal reflux disease with esophagitis; F41.9 Anxiety disorder, unspecified; F32.9 Major depressive disorder, single episode, unspecified; Z68.24 Body mass index [BMI] 24.0-24.9, adult; E87.6 Hypokalemia; F10.229 Alcohol dependence with intoxication, unspecified; F12.90 Cannabis use, unspecified, uncomplicated; F17.210 Nicotine dependence, cigarettes, uncomplicated; I08.0 Rheumatic disorders of both mitral and aortic valves; I48.0 Paroxysmal atrial fibrillation; I71.2 Thoracic aortic aneurysm, without rupture; J43.9 Emphysema, unspecified; N40.0 Benign prostatic hyperplasia without lower urinary tract symptoms; R13.10 Dysphagia, unspecified; T45.515A Adverse effect of anticoagulants, initial encounter; W10.9XXA Fall (on) (from) unspecified stairs and steps, initial encounter; Y93.89 Activity, other specified; Y92.89 Other specified places as the place of occurrence of the external cause; Y99.8 Other external cause status; Z79.82 Long term (current) use of aspirin; Z79.01 Long term (current) use of anticoagulants; Z95.3 Presence of xenogenic heart valve; Z91.81 History of falling; Z86.73 Personal history of transient ischemic attack (TIA), and cerebral infarction without residual deficits; Z83.3 Family history of diabetes mellitus; Z82.49 Family history of ischemic heart disease and other diseases of the circulatory system
CPT/HCPCS: 36415; 36569; 36600; 43255; 70450; 70551; 71045; 71260; 72125; 73562; 74177; 80047; 80048; 80053; 80069; 80076; 80307; 81001; 82140; 82436; 82607; 82728; 82805; 82962; 83540; 83550; 83605; 83690; 83735; 83930; 83935; 84100; 84133; 84145; 84300; 84443; 84478; 84484; 85007; 85025; 85027; 85384; 85520; 85610; 85730; 86850; 86900; 86901; 86920; 86927; 87040; 87086; 87493; 90471; 90715; 93005; 93306; 94002; 94003; 94640; 94760; 95816; 96361; 96374; 99406; C9113; G0480; J0282; J0330; J0360; J0610; J0692; J0696; J0878; J1160; J1200; J1630; J1644; J1650; J2060; J2248; J2250; J2270; J2405; J2543; J2765; J3010; J3430; J3475; J3480; J3486; J3490; J7030; J7050; J7620; P9016; P9017; P9045; Q9967; 92526; 92610; 97110; 97116; 97530; 97535; 99285-25; G0378

== ENCOUNTER → 2019-04-30 | Outpatient (CLI) | payer MEDICARE, MEDICAID ==
[~2019-04-30] MED LIST changes: +LORA1TAB PO; +OXYC1TAB19 PO; +REGADENOSON 0.4 MG/5 ML DISP.SYRIN. IV ONE
--- NOTE | 2019-04-30 12:54 | RAD ---
MR#: [id number] Date of Study: 04/30/2019 Ordering Physician: ANN-MARIE CARY, Referring Physician: NEDA BURNS: OSMANI Salas APPROVED REPORT Test Type: Pharmacological Stress Nurse/Tech: Lynda Olea R.N. Test Indications: chest pain Cardiac History: valve replaced, htn, copd, smoker Medications: see ehr Medical History: see ehr Resting ECG: SR with interference on the baseline Resting Heart Rate: 59 bpm Resting Blood Pressure: 153/85mmHg Pretest Chest Pain: No chest pain Nurse/Tech Notes lungs cta, heart Pharm. Details Pharmacologic stress testing was performed using 0.4mg per 5ml of regadenoson given intravenously ove r 7-10 seconds. Stress Symptoms No chest pain or symptoms. POST EXERCISE Reason for Termination: Infusion complete Target HR: No Max HR: 96 bpm Max Blood Pressure: 156/89mmHg Chest Pain: No. Arrhythmia: Yes. intermittant PVCs noted during recovery ST Change: No. INTERPRETATION Stress EKG Conclusion: No ischemic on stress EKG. Imaging Protocol IMAGE PROTOCOL: Rest Tc-99m/stress Tc-99m 1 day Rest: Stress: Viability: Radiopharm.Tc99m EvxwlmuteHv21r Sestamibi Sgpo05tEv 33mCi Duration 15min. 13min. Img Date 04/30/2019 04/30/2019 Inj-Img [id number]. 60min. Rest Admin Site:IV - Right ForearmAdministrator:OSMANI Salas Stress Admin Site: IV - Right ForearmAdministrator: SHARON Rangel, ARRT (R)(N) STRESS DATA End Diast. Vol.97.0mlLVEDV index BSA50.0ml End Syst. Vol.29.0mlLVESV index BSA15.0ml Myocardial Waqx378.0gEject. Likbwxlu12.0% Stress Scores Regional WT0.00Summed WT5.00 Regional WM0.00Summed WM9.00 LV Perfusion Moderate sized inferior mostly FIXED perfusion defect with mild periinfarct ischemia suggestive of pr ior infarct in the RCA territory. Wall Motion Grossly normal wall motion with an EF of 60% LV Perf. Quant 17 Seg. SSS8.00 17 Seg. SRS5.00 17 Seg. SDS3.00 Stress Defect Extent (% LAD)0.00Rest Defect Extent (% LAD)0.00Rev. Defect Extent (% LAD)0.00 Stress Defect Extent (% LCX) 23.80Rest Defect Extent (% LCX)6.30Rev. Defect Extent (% LCX)11.30 Stress Defect Extent (% RCA)21.10Rest Defect Extent (% RCA)14.40Rev. Defect Extent (% RCA)6.70 Stress Defect Extent (% GAYLE)14.30Rest Defect Extent (% GAYLE)3.90Rev. Defect Extent (% GAYLE)6.70 Other Information Quality:Average Risk Assessment: Moderate Risk Conclusion 1. No acute ischemic EKG changes. 2. Fixed inferior wall defect with mild catina-infarct ischemia. 3. Normal EF at 60% 4. Moderate risk study. Signed by : Rajiv Herr, Electronically Approved : 04/30/2019 12:53:30
== END | disposition home or self-care (01) ==
LOC: NM 08:09
PROVIDERS: ATTEND Internal Medicine Cardiovascular Disease
DX: I21.19 ST elevation (STEMI) myocardial infarction involving other coronary artery of inferior wall (principal); I10 Essential (primary) hypertension; J44.9 Chronic obstructive pulmonary disease, unspecified; I48.0 Paroxysmal atrial fibrillation; Z95.2 Presence of prosthetic heart valve
CPT/HCPCS: 78452; 93017; A9500; J2785